=== PATIENT | male | born 1940 | race Hispanic/Latino ===

== ENCOUNTER 2017-01-03 10:55 | Inpatient (IN) | payer MEDICARE, OTHER ==
[2017-01-03 11:07] VITALS: BMI 18.7
[2017-01-03] MEDS ORDERED: Morphine 2 mg/ml ISec IVP STA (11:44)
--- NOTE | 2017-01-03 11:44 | ED PDOC ---
Arrival/HPI - General Historian: Patient - History of Present Illness Symptom Course: Unchanged Context: Home - General Chief Complaint: Abnormal Labs Time Seen by Provider: 01/03/17 11:02 - History of Present Illness Narrative History of Present Illness (Text): 01/03/17 11:41 76yo M with no stated PMH as pt is poor historian. Pt was sent by Dr. Jeff for jaundice and pancreatic mass noted on abdominal CT, as well as glucose of 500+. Pt is only complaining of joint pain, but denies chest pain, shortness of breath, cough, n/v/d, abdominal pain. Pt states that he first noticed his skin color was yellow in April of this year. Pt lives upstairs in 2-family home with daughter downstairs. Pt uses cane for assistance at baseline, and reports some lower back pain, possibly from a fall. (Jose Duckworth) Past Medical History - Provider Review Nursing Documentation Reviewed: Yes - Past History Past History: Non-Contributing - Infectious Disease Hx of Infectious Diseases: None - Tetanus Immunization Tetanus Immunization: Unknown - Past Medical History Past Medical History: Non-Contributing - Cardiac Hx Cardiac Disorders: Yes Hx Coronary Artery Disease: Yes (open heart surgery (2011)) - Pulmonary Hx Respiratory Disorders: No - Neurological Hx Neurological Disorder: No - HEENT Hx HEENT Disorder: No - Renal Hx Renal Disorder: No - Endocrine/Metabolic Hx Endocrine Disorders: Yes Other/Comment: hypergylcemic upon ed arrival on 01/03/2017 - Hematological/Oncological Hx Blood Disorders: No - Integumentary Hx Dermatological Disorder: No - Musculoskeletal/Rheumatological Hx Musculoskeletal Disorders: No - Gastrointestinal Hx Gastrointestinal Disorders: No - Genitourinary/Gynecological Hx Genitourinary Disorders: No - Psychiatric Hx Psychophysiologic Disorder: No Hx Depression: No Hx Emotional Abuse: No Hx Physical Abuse: No Hx Substance Use: No - Surgical History Hx Coronary Stent: Yes Other/Comment: unknown chest surgery - Anesthesia Hx Anesthesia: Yes Hx Anesthesia Reactions: No - Suicidal Assessment Feels Threatened In Home Enviroment: No Family/Social History - Physician Review Nursing Documentation Reviewed: Yes Family/Social History: No Known Family HX Smoking Status: Former Smoker (heavy smoker, quit 2011) Hx Alcohol Use: Yes Frequency of alcohol use: Daily (wine and beer) Hx Substance Use: No Hx Substance Use Treatment: No Allergies/Home Meds Allergies/Adverse Reactions: Allergies No Known Allergies Allergy (Verified 01/03/17 11:14) Home Medications: Home Meds Medication Instructions Recorded Confirmed Aspirin [Adult Low Dose Aspirin EC] 81 mg PO DAILY 01/03/17 01/03/17 Review of Systems - Physician Review All systems were reviewed & negative as marked: Yes - Review of Systems Constitutional: absent: Fevers Respiratory: absent: SOB, Cough Cardiovascular: absent: Chest Pain Gastrointestinal: absent: Abdominal Pain, Stool Changes, Diarrhea, Nausea, Vomiting Musculoskeletal: Back Pain (lower back pain) Physical Exam Vital Signs Reviewed: Yes Appearance: Positive for: Well-Appearing Pain Distress: None Mental Status: Positive for: Alert and Oriented X 3 Finger Stick Blood Glucose: 500 - Systems Exam Head: Present: Atraumatic, Normocephalic Pupils: Present: PERRL Extroacular Muscles: Present: EOMI Conjunctiva: Present: Icteric Mouth: Present: Moist Mucous Membranes Pharnyx: Present: Normal Neck: Present: Normal Range of Motion, Other (+hepatojugular reflex). No: Meningeal Signs, JVD Respiratory/Chest: Present: Clear to Auscultation, Good Air Exchange. No: Respiratory Distress, Accessory Muscle Use, Wheezes Cardiovascular: Present: Regular Rate and Rhythm, Normal S1, S2. No: Murmurs Abdomen: Present: Normal Bowel Sounds. No: Tenderness, Distention Back: Present: Normal Inspection Upper Extremity: Present: Normal Inspection, Normal ROM Lower Extremity: Present: Normal Inspection, Normal ROM, Other (abrasions b/l knee). No: Edema Neurological: Present: Speech Normal, Motor Func Grossly Intact, Normal Sensory Function Skin: Present: Warm, Dry, Other (jaundice). No: Normal Color Psychiatric: Present: Alert, Oriented x 3 Vital Signs Temp Pulse Resp BP Pulse Ox 01/03/17 15:10 97.9 F 78 18 110/68 01/03/17 13:12 75 18 110/68 97 01/03/17 11:06 97.9 F 80 18 108/67 97 Medical Decision Making Re-evaluation Time: 16:21 Reassessment Condition: Re-examined, Unchanged - Lab Interpretations I have reviewed the lab results: Yes - RAD Interpretation [place] Mixer Operator: Radiologist - EKG Interpretation Interpreted by ED Physician: Yes Type: 12 lead EKG ED Course and Treatment: 01/03/17 11:58 Impression: 76yo M presenting with jaundice and pancreatic mass on CT likely 2/2 pancreatic tumor, as well as hyperglycemia Plan: - Reassess and disposition - Labs - Total and Direct Bili - VBG - Urinalysis - Consults: IR and GI Progress Notes: 01/03/17 12:00 pt complaining of some lower back pain, Xray ordered 01/03/17 12:33 EKG: Ordered, reviewed, and independently interpreted the EKG. Rate : 80 BPM Rhythm : NSR, RBBB, L anterior fascicular block, bifascicular block, anterolateral infarct (age undeterminted) Interpretation : Normal intervals. 01/03/17 14:07 Ruth, the patient's daughter was visiting the pt with her boyfriend and the resident discussed the patient and the findings with her. Contact # . Radiographs of the pelvis and bilateral hips Report Date : 01/03/2017 13:06:29 Creator : Cody Corado MD FINDINGS: BONES: Pelvis: Unremarkable. Right hip:Unremarkable. Left hip:Unremarkable. JOINTS: Right hip: Unremarkable. Left hip: Unremarkable. Sacroiliac Joints: Unremarkable. Pubic symphysis: Unremarkable. SOFT TISSUES: Normal. OTHER FINDINGS: None. IMPRESSION: Unremarkable radiographs of the hips and pelvis. MRCP was also done but results are not yet available (Jose Duckworth) 01/03/17 13:04 Jemal Ibarra is a 76 year old male who presents to the emergency department with lower back pain. On exam, he presented with jaundice. CT scan shows a pancreatic mass. The patient was seen and examined with resident. Came up with treatment and disposition plan with resident. 01/03/17 14:00 Case was discussed with Dr. Garcia who recommended an MRCP with and with contrast MRI. He will follow up on the results. Patient is comfortable and stable. I discussed the case with Dr. Rehan Jeff who will place the patient on his service. He had recommended Dr. Garcia for GI and Dr. Trujillo for IR. Both consults were placed. FS improved to 296 after second Insulin dose and continual IV fluids. Patient was also complaining of sore throat. There is mild redness and noted exudates. Patient was treated with Zosyn IV for broad spectrum coverage considering WBC and LA elevation. Patient at beside and was informed of results. Patient aware of results and plan for admission. (Eren Hernandez) - Lab Interpretations Lab Results: 01/03/17 12:33 01/03/17 12:33 Lab Results 01/03/17 13:26: Blood Type Confirm A NEGATIVE 01/03/17 12:33: Blood Type A NEGATIVE, Antibody Screen Negative, BBK History Checked No verified bt 01/03/17 12:33: Sodium 134, Chloride 91 L, Potassium 4.1, Carbon Dioxide 33, Anion Gap 14, BUN 16, Creatinine 0.6 L, Est GFR ( Amer) > 60, Est GFR ( Non-Af Amer) > 60, Random Glucose 593 H*, Calcium 9.3, Phosphorus 3.9, Magnesium 2.3 H, Total Bilirubin 23.1 H*, Direct Bilirubin 20.6 H, AST 227 H, ALT 216 H, Alkaline Phosphatase 1718 H, Total Protein 6.8, Albumin 3.5, Globulin 3.3, Albumin/Globulin Ratio 1.1 01/03/17 12:33: pO2 39, VBG pH 7.32, VBG pCO2 66.0 H*, VBG HCO3 34.0 H, VBG Total CO2 36.0 H, VBG O2 Sat (Calc) 77.2 H, VBG Base Excess 5.7 H, VBG Potassium 4.4, Sodium 133.0, Chloride 93.0 L, Glucose 652 H*, Lactate 2.4 H, FiO2 21.0, Venous Blood Potassium 4.4 01/03/17 12:33: PT 11.8, INR 1.09 H, APTT 30.4 01/03/17 12:33: WBC 11.9 H, RBC 3.38 L, Hgb 11.1 L, Hct 35.4 L, MCV 104.7, MCH 32.8, MCHC 31.4, RDW 15.3 H, Plt Count 268, MPV 13.1 H, Gran % 85.1 H, Lymph % ( Auto) 7.4 L, [place] % (Auto) 7.0 H, Eos % (Auto) 0.3 L, Baso % (Auto) 0.2, Gran # 10.13 H, Lymph # 0.9 L, Chaves # 0.8 H, Eos # 0.0, Baso # 0.02 01/03/17 11:09: POC Glucose (mg/dL) > 500 H* - RAD Interpretation Radiology Orders: 01/03/17 12:00 Hip Bi with Pelvis Fall Protocol [HIP MIN 2V W/ PELVIS JIL] [RAD] Stat - Medication Orders Current Medication Orders: Discontinued Medications Sodium Chloride (Sodium Chloride 0.9%) 1,000 mls @ 999 mls/hr IV .Q1H1M STA Stop: 01/03/17 14:13 Last Admin: 01/03/17 13:50 Dose: 999 mls/hr eMAR Start Stop Document 01/03/17 13:50 LA (Rec: 01/03/17 13:50 LA [id number]) Intravenous Solution Start Date 01/03/17 Start Time 13:50 End Date 01/03/17 End time 14:50 Total Infusion Time 60 Sodium Chloride (Sodium Chloride 0.9%) 1,000 mls @ 999 mls/hr IV .Q1H1M STA Stop: 01/03/17 15:02 Last Admin: 01/03/17 14:32 Dose: 999 mls/hr eMAR Start Stop Document 01/03/17 14:32 LA (Rec: 01/03/17 14:32 LA [id number]) Intravenous Solution Start Date 01/03/17 Start Time 14:32 End Date 01/03/17 End time 15:32 Total Infusion Time 60 Piperacillin Sod/Tazobactam Sod (Zosyn 4.5 Gm In Ns 100ml) 4.5 gm in 100 mls @ 200 mls/hr IVPB STAT STA PRN Reason: Protocol Stop: 01/03/17 15:13 Last Admin: 01/03/17 16:13 Dose: 200 mls/hr eMAR Start Stop Document 01/03/17 16:13 PORFIRIO (Rec: 01/03/17 16:14 [id number]) Intravenous Solution Start Date 01/03/17 Start Time 16:13 End Date 01/03/17 End time 16:43 Total Infusion Time 30 Insulin Human Regular (Humulin R) 5 units IVP STAT STA Stop: 01/03/17 13:01 Last Admin: 01/03/17 13:46 Dose: 5 units MAR Blood Glucose Document 01/03/17 13:46 LA (Rec: 01/03/17 13:50 [id number] Blood Glucose Finger Stick Blood Glucose (70-120) 652 IVP Administration Document 01/03/17 13:46 LA (Rec: 01/03/17 13:50 LA [id number]) Charges for Administration # of IVP Administrations 1 Insulin Human Regular (Humulin R) 5 units IVP STAT STA Stop: 01/03/17 14:56 Last Admin: 01/03/17 16:13 Dose: 5 units MAR Blood Glucose Document 01/03/17 16:13 [facility] (Rec: 01/03/17 16:13 [email or web address] Blood Glucose Finger Stick Blood Glucose (70-120) 444 IVP Administration Document 01/03/17 16:13 PORFIRIO (Rec: 01/03/17 16:13 [email or web address] Charges for Administration # of IVP Administrations 1 Morphine Sulfate (Morphine) 2 mg IVP STAT STA Stop: 01/03/17 11:45 Last Admin: 01/03/17 12:26 Dose: 2 mg MAR Pain Assessment Document 01/03/17 12:26 LA (Rec: 01/03/17 12:39 [id number] Pain Reassessment Is this a pain reassessment? Yes Sleep Is patient sleeping during reassessment? No Presence of Pain Presence of Pain Yes Pain Scale Used Pain Scale Used Numeric Location Pain Location Body Site Generalized Description Description Constant Intensity of Pain at present 10 Pain Behavior Guarding Grasping Site Aggravating Factors None IVP Administration Document 01/03/17 12:26 LA (Rec: 01/03/17 12:39 [id number]) Charges for Administration # of IVP Administrations 1 Pneumococcal Polyvalent Vaccine (Pneumovax 23 Vaccine) 0.5 ml IM .ONCE ONE Stop: 01/03/17 15:32 Disposition/Present on Arrival - Present on Arrival Any Indicators Present on Arrival: No History of DVT/PE: No History of Uncontrolled Diabetes: No Urinary Catheter: No History of Decub. Ulcer: No History Surgical Site Infection Following: None - Disposition Have Diagnosis and Disposition been Completed?: Yes Disposition Time: 16:32 Patient Plan: Admission - Disposition Diagnosis: Pancreatic mass, Hyperglycemia, Jaundice Disposition: HOSPITALIZED Patient Problems: Current Active Problems Problem Status Onset Pancreatic mass Acute Hyperglycemia Acute Jaundice Acute Condition: FAIR
[2017-01-03 12:47] LABS: VENOUS BLOOD GAS BASE EXCESS 5.7 mmol/L (0.0-2.0); VENOUS BLOOD PH 7.32 (7.32-7.43)
[2017-01-03 12:51] LABS: BASO # 0.02 K/mm3 (0.0-2.0); BASO % 0.2 % (0.0-3.0); EOS % 0.3 % (1.5-5.0); GRAN # 10.13 (1.4-6.5); GRAN % 85.1 % (50.0-68.0); HEMATOCRIT 35.4 % (42.0-52.0); LYMPH # 0.9 (1.2-3.4); LYMPH % 7.4 % (22.0-35.0); MEAN CELL VOLUME 104.7 fl (80.0-105.0); MEAN CORPUSCULAR HEMOGLOBIN 32.8 pg (25.0-35.0); MEAN CORPUSCULAR HGB CONC 31.4 g/dl (31.0-37.0); MEAN PLATELET VOLUME 13.1 fl (7.0-11.0); MONO # 0.8 (0.1-0.6); RED CELL DISTRIBUTION WIDTH 15.3 % (11.5-14.5); WHITE BLOOD COUNT 11.9 10^3/ul (4.5-11.0)
[2017-01-03 12:57] LABS: ALB/GLOB RATIO 1.1 (1.1-1.8); ALT/SGPT 216 U/L (7-56); AST/SGOT 227 U/L (17-59); BILIRUBIN,DIRECT 20.6 mg/dL (0.0-0.4); BLOOD UREA NITROGEN 16 mg/dL (7-21); CALCIUM 9.3 mg/dL (8.4-10.5); CARBON DIOXIDE 33 mmol/L (21-33); CHLORIDE 91 mmol/L (98-107); GFR AFRICAN-AMERICAN > 60; MAGNESIUM 2.3 mg/dL (1.7-2.2); PHOSPHOROUS 3.9 mg/dL (2.5-4.5); POTASSIUM 4.1 mmol/L (3.6-5.0); SODIUM 134 mmol/L (132-148); TOTAL PROTEIN 6.8 g/dL (5.8-8.3)
[2017-01-03] MEDS ORDERED: Insulin Regular 1 UNITS/0.01 ML ML IVP STA ×2 (13:00→14:55)
[2017-01-03 13:03] LABS: ALKALINE PHOSPHATASE 1718 U/L (38-126)
--- NOTE | 2017-01-03 13:08 | RAD ---
PROCEDURE: Radiographs of the pelvis and bilateral hips HISTORY: s/p fall COMPARISON: None. FINDINGS: BONES: Pelvis: Unremarkable. Right hip:Unremarkable. Left hip:Unremarkable. JOINTS: Right hip: Unremarkable. Left hip: Unremarkable. Sacroiliac Joints: Unremarkable. Pubic symphysis: Unremarkable. SOFT TISSUES: Normal. OTHER FINDINGS: None. IMPRESSION: Unremarkable radiographs of the hips and pelvis.
[2017-01-03 13:11] LABS: BILIRUBIN,TOTAL 23.1 mg/dL (0.2-1.3); GLUCOSE,RANDOM 593 mg/dL (70-110)
[2017-01-03] MEDS ORDERED: Sodium Chloride 0.9% 1,000 ML IV STA ×2 (13:13→14:02)
[2017-01-03 13:14] LABS: INR 1.09 (0.93-1.08); PARTIAL THROMBOPLASTIN TIME 30.4 Seconds (23.7-30.8)
[2017-01-03 14:14] LABS: PH,URINE 6.5 (4.7-8.0); URINE BILIRUBIN LARGE (NEGATIVE); URINE BLOOD TRACE-LYSED (NEGATIVE); URINE GLUCOSE (UA) >=1000 mg/dL (NEGATIVE); URINE KETONE NEGATIVE (NEGATIVE); URINE LEUKOCYTE ESTERASE NEGATIVE Leu/uL (NEGATIVE); URINE PROTEIN TRACE mg/dL (<30 mg/dL); URINE UROBILINOGEN 0.2 E.U./dL (<1 E.U./dL)
[2017-01-03 14:19] LABS: URINE APPEARANCE CLEAR (CLEAR); URINE COLOR YELLOW (YELLOW)
[2017-01-03 14:20] LABS: URINE BACTERIA TRACE (NEG); URINE RBC NEGATIVE /hpf (0-2); URINE WBC NEGATIVE /hpf (0-6)
[2017-01-03] MEDS ORDERED: Piperacill/Tazo 4.5gm in NS 4.5 GM/100 ML BAG IVPB STA (14:44)
--- NOTE | 2017-01-03 14:52 | CARD ---
APPROVED REPORT EKG Measurement Heart [id number] MI [id number] <Conclusion> Normal sinus rhythm Right bundle branch block Left anterior fascicular block Bifascicular block Anterolateral infarct, age undetermined Abnormal ECG
[2017-01-03] MEDS ORDERED: Gadodiamide 287 MG/ML VIAL (15ML) IV ONE (15:30)
[2017-01-03] MEDS ORDERED: Pneumococcal 23-Valent Vaccine IM ONE (15:31)
[2017-01-03] MEDS ORDERED: Insulin Lispro 1 UNITS/0.01 ML SC STA (18:09)
[2017-01-03 19:04] LABS: VENOUS BLOOD GAS BASE EXCESS 9.7 mmol/L (0.0-2.0); VENOUS BLOOD PH 7.38 (7.32-7.43)
--- NOTE | 2017-01-03 19:04 | CP.PCM.CON ---
History of Present Illness - History of Present Illness History of Present Illness: this 76-year-old patient was seen by primary physician last week in the office. Patient was complaining of weakness and difficulty with his ambulation. Patient was found to be jaundiced. Patient did have a CAT scan done showed a pancreatic mass. Patient was sent to the emergency room for evaluation today. No vomiting no diarrhea no bleeding per rectum denies any abdominal pain. He's been progressively getting weaker and weaker. History of loss of weight OTHER PAST MEDICAL HISTORY includes diabetes mellitus Review of Systems - Review of Systems All systems: reviewed and no additional remarkable complaints except - Constitutional Constitutional: Weight Loss, Weakness. absent: Chills, Fever - Cardiovascular Cardiovascular: absent: Chest Pain, Palpitations - Respiratory Respiratory: absent: Cough, Hemoptysis, Wheezing - Gastrointestinal Gastrointestinal: As Per HPI - Integumentary Integumentary: As Per HPI - Neurological Neurological: As Per HPI Past Patient History - Infectious Disease Hx of Infectious Diseases: None - Tetanus Immunizations Tetanus Immunization: Unknown - Past Social History Smoking Status: Former Smoker (heavy smoker, quit 2011) - CARDIAC Hx Cardiac Disorders: Yes - PULMONARY Hx Respiratory Disorders: No - NEUROLOGICAL Hx Neurological Disorder: No - HEENT Hx HEENT Problems: No - RENAL Hx Chronic Kidney Disease: No - ENDOCRINE/METABOLIC Hx Endocrine Disorders: Yes Other/Comment: hypergylcemic upon ed arrival on 01/03/2017 - HEMATOLOGICAL/ONCOLOGICAL Hx Blood Disorders: No - INTEGUMENTARY Hx Dermatological Problems: No - MUSCULOSKELETAL/RHEUMATOLOGICAL Hx Musculoskeletal Disorders: No - GASTROINTESTINAL Hx Gastrointestinal Disorders: No - GENITOURINARY/GYNECOLOGICAL Hx Genitourinary Disorders: No - PSYCHIATRIC Hx Psychophysiologic Disorder: No Hx Depression: No Hx Emotional Abuse: No Hx Physical Abuse: No Hx Substance Use: No - SURGICAL HISTORY Hx Coronary Stent: Yes Other/Comment: unknown chest surgery - ANESTHESIA Hx Anesthesia: Yes Hx Anesthesia Reactions: No Meds Allergies/Adverse Reactions: Allergies Allergy/AdvReac Type Severity Reaction Status Date / Time No Known Allergies Allergy Verified 01/03/17 11:14 - Medications Medications: Current Medications Insulin Human Lispro (Humalog High) 0 units SC ACHS BARBIE PRN Reason: Protocol Physical Exam - Constitutional Appears: No Acute Distress - Head Exam Head Exam: NORMOCEPHALIC. absent: ATRAUMATIC - Eye Exam Eye Exam: Normal appearance, Scleral icterus Pupil Exam: PERRL - ENT Exam ENT Exam: Normal Exam - Neck Exam Neck exam: Positive for: Normal Inspection. Negative for: Lymphadenopathy - Respiratory Exam Respiratory Exam: absent: Rales, Rhonchi - Cardiovascular Exam Cardiovascular Exam: +S1, +S2. absent: JVD - GI/Abdominal Exam GI & Abdominal Exam: Normal Bowel Sounds, Soft. absent: Mass, Tenderness - Rectal Exam Rectal Exam: Deferred - Extremities Exam Extremities exam: Positive for: full ROM. Negative for: calf tenderness, pedal edema - Skin Skin Exam: Intact, Warm Results - Vital Signs Recent Vital Signs: Last Vital Signs Temp 98.2 F 01/03/17 16:00 Pulse 101 H 01/03/17 16:00 Resp 20 01/03/17 16:00 BP 110/62 01/03/17 16:00 Pulse Ox 96 01/03/17 16:00 - Labs Result Diagrams: 01/03/17 12:33 01/03/17 12:33 Labs: Laboratory Results - last 24 hr 01/03/17 01/03/17 01/03/17 13:50 16:46 17:54 POC Glucose (mg/dL) 296 H 290 H Urine Color Yellow Urine Appearance Clear Urine pH 6.5 Ur Specific [place] 1.010 Urine Protein Trace H Urine Glucose (UA) >=1000 Urine Ketones Negative Urine Blood Trace-lysed H Urine Nitrate Negative Urine Bilirubin Large H Urine Urobilinogen 0.2 Ur Leukocyte Esterase Negative Urine RBC Negative Urine WBC Negative Urine Bacteria Trace Assessment & Plan - Assessment and Plan (Free Text) Assessment: P 76-year-old patient with a past medical history of diabetes mellitus was admitted with progressive weakness and weight loss deeply jaundiced CT showed possible pancreatic mass limited study the CT wasn't without contrast Total bilirubin is elevated. the most likely cause is pancreatic malignancy with obstructive jaundice Requested MRI with MRCP to further evaluate Other comorbidities include diabetes mellitus PLAN Patient is scheduled for EGD EUS and ERCP to further evaluate discussed with interventional radiologist Dr. Chicho Trujillo and also Dr. Odin Jeff we will keep the patient nothing by mouth after clear liquid breakfast for EUS ERCP tomorrow
[2017-01-03] MEDS: Sodium Chloride 0.45% 1,000 ML IV SCH (20:23)
[2017-01-03] MEDS: Insulin Lispro (HUMAlog) HIGH Coverage SC SCH (21:28)
[2017-01-04 06:04] LABS: BASO # 0.03 K/mm3 (0.0-2.0); BASO % 0.2 % (0.0-3.0); EOS # 0.2 (0.0-0.7); EOS % 1.6 % (1.5-5.0); GRAN # 9.97 (1.4-6.5); GRAN % 80.1 % (50.0-68.0); HEMATOCRIT 29.9 % (42.0-52.0); LYMPH # 1.5 (1.2-3.4); LYMPH % 11.7 % (22.0-35.0); MEAN CORPUSCULAR HEMOGLOBIN 32.8 pg (25.0-35.0); MEAN CORPUSCULAR HGB CONC 32.4 g/dl (31.0-37.0); MONO # 0.8 (0.1-0.6); MONO % 6.4 % (1.0-6.0); RED CELL DISTRIBUTION WIDTH 16.1 % (11.5-14.5); WHITE BLOOD COUNT 12.4 10^3/ul (4.5-11.0)
[2017-01-04 06:47] LABS: ALKALINE PHOSPHATASE 1381 U/L (38-126); ALT/SGPT 193 U/L (7-56); AST/SGOT 241 U/L (17-59); BLOOD UREA NITROGEN 18 mg/dL (7-21); CALCIUM 8.8 mg/dL (8.4-10.5); CARBON DIOXIDE 29 mmol/L (21-33); CHLORIDE 98 mmol/L (95-110); GFR AFRICAN-AMERICAN > 60; GLUCOSE,RANDOM 244 mg/dL (70-110); POTASSIUM 4.2 mmol/L (3.6-5.0); SODIUM 136 mmol/L (132-148); TOTAL PROTEIN 5.6 g/dL (5.8-8.3)
[2017-01-04 06:53] LABS: BILIRUBIN,TOTAL 18.8 mg/dL (0.2-1.3)
[2017-01-04] MEDS: Insulin Lispro (HUMAlog) HIGH Coverage SC SCH ×4 (08:30→21:38)
--- NOTE | 2017-01-04 08:38 | RAD ---
PROCEDURE: Bilateral Knee Radiographs. HISTORY: pain, R/O mets COMPARISON: None. FINDINGS: BONES: Right Knee: Normal. No fracture. Left Knee: Normal. No fracture. JOINTS: Right Knee: Mild joint space narrowing in the medial compartment Left knee: Minimal joint space narrowing in the medial compartment SOFT TISSUES: Right Knee: Normal. Left Knee: Normal. JOINT EFFUSION: Right Knee: None. Left Knee: None. OTHER FINDINGS: None. IMPRESSION: Joint space narrowing in the medial compartment bilaterally right greater than left
--- NOTE | 2017-01-04 10:45 | MRI ---
MRI abdomen without/with IV contrast MRCP Indication: Pancreatic mass, jaundice Technique: Multiplanar, multi sequence magnetic resonance images of the abdomen were obtained without and with the administration of intravenous gadolinium using a multi phase abdomen protocol. Rotating maximum intensity projection images of the biliary system were generated. A total of 1084 images submitted for review Comparison: CT of the abdomen and pelvis without IV contrast performed 12/31/16 Findings: Markedly limited examination due to patient motion and difficulty with breath hold. Cachectic patient. Severe intra and extrahepatic biliary ductal dilatation. The common bile duct measures up to 2.2 cm in diameter. No discrete focal filling defect identified. Abrupt distal taper of the common bile duct which measures approximately 2 mm in diameter. The pancreatic duct appears markedly dilated measuring approximately 11 mm in diameter. No focal filling defect identified. Evidence of abrupt tapering medially proximal to its terminus. Gallbladder distension. No visualized gallstones. No discrete obstructing pancreatic mass identified. However given limitations of this study, pancreatic mass can not be excluded. No focal fluid peripancreatic collection or abscess appreciated. The liver, spleen, adrenal glands, and right kidney appear grossly unremarkable. Tiny left renal cyst. Partially imaged bowel demonstrates constipation. Atherosclerotic calcifications of the aorta. No acute osseous abnormality is detected. Impression: Severe intrahepatic and extrahepatic biliary ductal dilatation as well as pancreatic ductal dilatation. Evidence of abrupt taper. No obstructing calculus or mass identified, however examination limited due to patient motion and a pancreatic or ampullary mass cannot be excluded. Preliminary impression was provided by virtual radiologic.
[2017-01-04] MEDS: Sodium Chloride 0.45% 1,000 ML IV SCH (13:58)
[2017-01-04] MEDS ORDERED: Indomethacin 50 MG Suppository PR ONE ×2 (14:10→16:50)
[2017-01-04] MEDS ORDERED: Iohexol 240 (50 ml) ONE (14:11)
[2017-01-04] MEDS ORDERED: cefTRIAXone (Rocephin) 1 gm Inj ONE (15:41)
[2017-01-04] MEDS ORDERED: Propofol 10 mg/ml Inj (20 ML) ONE (15:46)
[2017-01-04] MEDS ORDERED: Succinylcholine 200 mg/10 ml Inj IV ONE (15:46)
[2017-01-04] MEDS ORDERED: Lidocaine 2% Inj (20ml) ONE (15:46)
[2017-01-04] MEDS ORDERED: Etomidate 20 mg/10ml Inj IV ONE (15:47)
[2017-01-04] MEDS ORDERED: cefTRIAXone 1 GM in NS 100 ML BAG IVPB ONE (15:50)
[2017-01-04] MEDS ORDERED: ePHEDrine 50 mg/ml Inj ONE ×2 (15:56→16:29)
[2017-01-04] MEDS: Sodium Chloride 0.9% 1,000 ML IV SCH (21:15)
--- NOTE | 2017-01-05 00:14 | CP.PCM.PN ---
Subjective - Date & Time of Evaluation Date of Evaluation: 01/04/17 Time of Evaluation: 18:45 - Subjective Subjective: status post EUS, ERCP No complains of abdominal pain Objective - Vital Signs/Intake and Output Vital Signs (last 24 hours): Temp Pulse Resp BP Pulse Ox 98.1 F 78 22 119/68 98 01/04/17 18:53 01/04/17 18:53 01/04/17 18:53 01/04/17 18:53 01/04/17 18:53 Intake and Output: 01/04/17 01/05/17 18:59 06:59 Intake Total 120 0 Output Total 300 Balance 120 -300 - Medications Medications: Current Medications Sodium Chloride (Sodium Chloride 0.9%) 1,000 mls @ 100 mls/hr IV .Q10H BARBIE Last Admin: 01/04/17 21:15 Dose: 100 mls/hr Insulin Human Lispro (Humalog High) 0 units SC ACHS BARBIE PRN Reason: Protocol Last Admin: 01/04/17 21:38 Dose: Not Given Tramadol HCl (Ultram) 50 mg PO TID PRN PRN Reason: Pain, moderate (4-7) Last Admin: 01/03/17 20:09 Dose: 50 mg - Labs Labs: 01/04/17 05:30 01/04/17 05:30 PT 11.8 Seconds (9.9-11.8) 01/03/17 12:33 INR 1.09 (0.93-1.08) H 01/03/17 12:33 APTT 30.4 Seconds (23.7-30.8) 01/03/17 12:33 - Constitutional Appears: No Acute Distress - Eye Exam Eye Exam: EOMI, PERRL, Scleral icterus - Respiratory Exam Respiratory Exam: Clear to Ausculation Bilateral, Rhonchi. absent: Rales - Cardiovascular Exam Cardiovascular Exam: JVD, +S2, +S4. absent: +S1 - GI/Abdominal Exam GI & Abdominal Exam: Soft. absent: Tenderness - Extremities Exam Extremities Exam: Normal Inspection. absent: Calf Tenderness - Neurological Exam Neurological Exam: Alert, Awake, Oriented x3 - Skin Skin Exam: Cyanosis, Intact Assessment and Plan - Assessment and Plan (Free Text) Assessment: this patient underwent a EUS ERCP today. EUS revealed a 2 cm size hypoechoic lesion in the head of the pancreas closer to the ampullary area. Fine-needle aspiration biopsies were taken. Closer look at the ampulla revealed a lesion D duodenum all appears to be involved with puckered appearance. Cannulation was not successful biopsy of the periampullary tissue taken which appeared abnormal suggesting possible neoplasia Plan 1. Follow up with the lft 2. Request Dr. Chicho Trujillo, interventional radiologist for PTC Will discuss with the Dr. Jeff with Dr. Trujillo discussed with the patient at length postprocedure
[2017-01-05] MEDS: Sodium Chloride 0.9% 1,000 ML IV SCH (05:33)
[2017-01-05 06:56] LABS: HEMATOCRIT 31.5 % (42.0-52.0); MEAN CELL VOLUME 100.6 fl (80.0-105.0); MEAN CORPUSCULAR HEMOGLOBIN 31.9 pg (25.0-35.0); MEAN CORPUSCULAR HGB CONC 31.7 g/dl (31.0-37.0); MEAN PLATELET VOLUME 12.2 fl (7.0-11.0); RED CELL DISTRIBUTION WIDTH 16.2 % (11.5-14.5); WHITE BLOOD COUNT 9.4 10^3/ul (4.5-11.0)
[2017-01-05 07:30] LABS: ALB/GLOB RATIO 0.9 (1.1-1.8); ALKALINE PHOSPHATASE 1334 U/L (38-126); ALT/SGPT 167 U/L (7-56); AST/SGOT 190 U/L (17-59); BLOOD UREA NITROGEN 23 mg/dL (7-21); CALCIUM 8.5 mg/dL (8.4-10.5); CARBON DIOXIDE 24 mmol/L (21-33); CHLORIDE 102 mmol/L (98-107); GFR AFRICAN-AMERICAN > 60; GLUCOSE,RANDOM 264 mg/dL (70-110); POTASSIUM 4.4 mmol/L (3.6-5.0); SODIUM 135 mmol/L (132-148); TOTAL PROTEIN 5.4 g/dL (5.8-8.3)
[2017-01-05] MEDS: Insulin Lispro (HUMAlog) HIGH Coverage SC SCH ×4 (08:15→23:28)
[2017-01-05] MEDS ORDERED: Benzocaine/Menthol (Cepacol) Lozenge MT PRN (10:27)
--- NOTE | 2017-01-05 13:16 | CP.PCM.PN ---
<Elisa Campbell - Last Filed: 01/05/17 13:14> Subjective - Date & Time of Evaluation Date of Evaluation: 01/05/17 Time of Evaluation: 10:05 - Subjective Subjective: Seen and examined at the bedside earlier this morning, status post EGD/EUS/ attempted ERCP, failed cannulation, status post ERCP with biopsy and FNA. The patient remains jaundice, denies nausea, vomiting or abdominal pain. He does complain of a sore throat but states that he had this prior to hospital admission, he had a tooth extracted and post extraction had sore throat. Denies fever or chills. Objective - Vital Signs/Intake and Output Vital Signs (last 24 hours): Temp Pulse Resp BP Pulse Ox 98.4 F 73 20 91/57 L 95 01/05/17 06:00 01/05/17 06:00 01/05/17 06:00 01/05/17 06:00 01/05/17 06:00 Intake and Output: 01/05/17 01/05/17 06:59 18:59 Intake Total 1200 Output Total 675 Balance 525 - Medications Medications: Current Medications Benzocaine/Menthol (Cepacol Sore Throat) 1 sveta MT BID PRN PRN Reason: Sore Throat Sodium Chloride (Sodium Chloride 0.9%) 1,000 mls @ 100 mls/hr IV .Q10H [facility] Last Admin: 01/05/17 05:33 Dose: 100 mls/hr Insulin Human Lispro (Humalog High) 0 units SC ACHS [facility] PRN Reason: Protocol Last Admin: 01/05/17 12:35 Dose: 4 units Tramadol HCl (Ultram) 50 mg PO TID PRN PRN Reason: Pain, moderate (4-7) Last Admin: 01/05/17 08:26 Dose: 50 mg - Labs Labs: 01/05/17 06:51 01/05/17 06:51 PT 11.8 Seconds (9.9-11.8) 01/03/17 12:33 INR 1.09 (0.93-1.08) H 01/03/17 12:33 APTT 30.4 Seconds (23.7-30.8) 01/03/17 12:33 - Constitutional Appears: No Acute Distress - Eye Exam Eye Exam: Scleral icterus - ENT Exam ENT Exam: Mucous Membranes Moist - Respiratory Exam Respiratory Exam: Clear to Ausculation Bilateral, NORMAL BREATHING PATTERN. absent: Respiratory Distress - Cardiovascular Exam Cardiovascular Exam: +S1, +S2 - GI/Abdominal Exam GI & Abdominal Exam: Soft, Normal Bowel Sounds. absent: Guarding, Tenderness, Rebound - Extremities Exam Extremities Exam: Normal Capillary Refill. absent: Calf Tenderness, Pedal Edema - Neurological Exam Neurological Exam: Alert, Awake, Oriented x3 - Skin Skin Exam: Dry, Warm Additional comments: jaundice Assessment and Plan - Assessment and Plan (Free Text) Assessment: Assessment: Obstructive jaundice, EUS revealed a 2 cm size hypoechoic lesion in the head of the pancreas closer to the ampullary area. s/p biopsies Attempted ERCP, unable to cannulate, was not successful biopsy of the periampullary tissue done. Weight loss History of diabetes mellitus Plan: Planned for PTC with Dr. Trujillo today Start clear liquid diet, can advance after interventional procedure Trend LFTs Cepacol lozenges Follow-up biopsy and cytology Spoke to son at bedside regarding plan today. Seen and discussed with Dr. Bruce. <Yomaira Bradley V - Last Filed: 01/05/17 21:21> Objective - Vital Signs/Intake and Output Vital Signs (last 24 hours): Temp Pulse Resp BP Pulse Ox 97.4 F L 62 17 124/64 99 01/05/17 17:42 01/05/17 17:42 01/05/17 17:42 01/05/17 17:42 01/05/17 17:42 Intake and Output: 01/05/17 01/06/17 18:59 06:59 Intake Total 480 Balance 480 - Medications Medications: Current Medications Acetaminophen (Tylenol 325mg Tab) 650 mg PO Q4 PRN PRN Reason: Pain, Mild (1-3) Benzocaine/Menthol (Cepacol Sore Throat) 1 sveta MT BID PRN PRN Reason: Sore Throat Hydromorphone HCl (Dilaudid) 2 mg IVP Q6H PRN PRN Reason: Pain, severe (8-10) Sodium Chloride (Sodium Chloride 0.9%) 1,000 mls @ 100 mls/hr IV .Q10H [facility] Last Admin: 01/05/17 05:33 Dose: 100 mls/hr Sodium Chloride (Sodium Chloride 0.45%) 1,000 mls @ 80 mls/hr IV .[id number] [facility] Stop: 01/06/17 18:00 Last Admin: 01/05/17 18:25 Dose: 80 mls/hr Insulin Human Lispro (Humalog High) 0 units SC ACHS [facility] PRN Reason: Protocol Last Admin: 01/05/17 18:00 Dose: 4 units Ondansetron HCl (Zofran Inj) 4 mg IVP Q6H PRN PRN Reason: Nausea/Vomiting Oxycodone/Acetaminophen (Percocet 5/325 Mg Tab) 1 tab PO Q4H PRN PRN Reason: Pain, moderate (4-7) Stop: 01/08/17 17:19 Tramadol HCl (Ultram) 50 mg PO TID PRN PRN Reason: Pain, moderate (4-7) Last Admin: 01/05/17 08:26 Dose: 50 mg - Labs Labs: 01/05/17 06:51 01/05/17 06:51 PT 11.8 Seconds (9.9-11.8) 01/03/17 12:33 INR 1.09 (0.93-1.08) H 01/03/17 12:33 APTT 30.4 Seconds (23.7-30.8) 01/03/17 12:33 Attending/Attestation - Attestation I have personally seen and examined this patient.: Yes I have fully participated in the care of the patient.: Yes I have reviewed all pertinent clinical information, including history, physical exam and plan: Yes Notes (Text): This is an addendum to GI progress report dictated by Elisa Campbell APN.The patient was seen and examined earlier. Medical records, lab studies, imagings were reviewed. Last 24 hours events reviewed. Agreed with the above treatment plan as outlined in Elisa Campbell APN's notes the with the addition of the following I was present with Dr. Trujillo the during the PTC in vascular lab. Tight stricture in the distal common bile duct. Cholangiogram picture is suggestive of pancreatic cancer involving the head rather than. Ampullary. Internal/ external stent was placed. Awaiting for the pathology. Discussed with the Dr. Gabriel pathologists results may be available tomorrow we will follow up I did discuss with the Dr. John Jeff in the a.m. 01/05/17 21:18
--- NOTE | 2017-01-05 13:23 | RAD ---
PROCEDURE: Fluoroscopy up to 1 hour HISTORY: ? CBD OBST. COMPARISON: TECHNIQUE: Fluoroscopy was provided in the endoscopy suite. 30.4 seconds of fluoro time. One image was submitted FINDINGS: ERCP was attempted but failed. There is no visualization of the common duct IMPRESSION: As above
[2017-01-05] MEDS ORDERED: Iodixanol 320 mg/ml 150 ml Bottle IV ONE (15:27)
[2017-01-05] MEDS ORDERED: Lidocaine 2% Inj (20ml) ONE (15:27)
[2017-01-05] MEDS ORDERED: Nitroglycerin 50mg in D5W 50 MG/250 ML BOTTLE IV ONE (15:39)
[2017-01-05] MEDS ORDERED: Midazolam 2 MG/2 ML VIAL ONE ×2 (15:39→16:33)
[2017-01-05] MEDS ORDERED: Iodixanol 320 MG/ML 100 ML BOTTLE IV ONE (15:39)
--- NOTE | 2017-01-05 15:39 | PN ---
DATE: 01/04/2017 SUBJECTIVE: This is a 76-year-old man who I have not seen in 2 years. I saw him on Tuesday when he was waiting for me on the driveway at my office and he is extremely jaundiced. He went for the CT scan . Labs were drawn showing his sugar over 500 and CA19-9 over 54,000 and followup on Tuesday morning, he was told these results and admitted by Dr. Cody Jeff yesterday. He was given IV fluids, insulin, and today EUS, EGD, and ERCP were scheduled and the patient has had endoscopy late this evening as I spoke with family, and patient returned during my visit. I spoke with the patient's family at great length, bringing them up today for my findings so far. My plan is suspicious the pancreatic cancer, although CAT scan was not extremely diagnostic and more will be revealed by the ERCP, MRCP, and EUS just done. The patient's family request Oncology consultation by Dr. Bautista and will comply. Rehan Jeff MD MTDD
[2017-01-05] MEDS ORDERED: HYDROmorphone 2 mg/ml ISec ONE (17:17)
[2017-01-05] MEDS ORDERED: Oxycodone/Acetaminophen 5/325 mg Tab PO PRN (17:18)
[2017-01-05] MEDS ORDERED: HYDROmorphone 2 mg/ml ISec IVP PRN (17:19)
[2017-01-05] MEDS ORDERED: HYDROmorphone 2 mg/ml ISec IVP STA (17:24)
[2017-01-05] MEDS: Sodium Chloride 0.45% 1,000 ML IV SCH (18:25)
--- NOTE | 2017-01-05 19:30 | VASCULAR ---
PROCEDURE: Percutaneous transhepatic internal/external biliary drain Distal CBD dilatation HISTORY: Pancreatic CA. Painless jaundice. Unable placed endoscopic stent. Needs biliary drainage. PHYSICIAN(S): Chicho Trujillo MD. TECHNIQUE: The relative risks and indications for the procedure were explained to the patient and informed consent obtained. The patient was placed in a supine position and the subxiphoid region prepped and draped usual sterile fashion. Conscious sedation monitoring were provided throughout the procedure by a nurse. Under direct ultrasound guidance, a dilated left hepatic duct was punctured with a micropuncture set. Exchange is made for a 0.035 guidewire in the distal CBD. The focal malignant obstruction distal CBD was crossed with an angled glidewire and 5 [place] catheter. Exchange is made for a 0.035 support wire. The 12 [place] internal external biliary drain would not cross the focal malignant obstruction in the distal CBD. Subsequently the malignant obstruction was dilated with an 8 mm x 4 cm balloon. The 12 [place] internal external biliary drain was easily placed after dilatation. The catheter was flushed and secured. The patient tolerated the procedure well IMPRESSION: 1. Malignant 2-3 cm obstruction of the distal CBD. 2. Successful dilatation of the malignant obstruction with an 8 mm balloon. 3. Successful placement of 12 [place] internal/external biliary drain from a left-sided approach. 4. The patient will be considered for internal metallic biliary stent placement after tissue diagnosis and the bile ducts have decompressed.
--- NOTE | 2017-01-05 20:56 | CP.PCM.CON ---
<ArronCory salazar - Last Filed: 01/05/17 21:09> History of Present Illness - History of Present Illness History of Present Illness: Heme/Onc Consult note for Dr. Bautista's service HPI: Patient is a 76yo male with past medical history of diabetes mellitus type 2 that originally presented to his PMD c/o weakness. He reported significant fatigue, inability to ambulate as he used to, yellowing of his skin and weight loss of approximately 50lbs in 6 months duration. He was sent for CT abd/pelvis which revealed dilated hepatic and proximal common duct and dilated pancreatic duct raising the suspicion for a pancreatic head mass. He was subsequently advised to go to the ER for further evaluation. Subsequently, an MRCP was done which showed severe intrahepatic and extrahepatic biliary ductal dilatation and pancreatic ductal dilatation. GI was consulted and he underwent EGD/EUS/ attempted ERCP. EUS revealed a 2cm hypoechoic lesion in the head of the pancreas. FNA biopsies were taken of the mass. ERCP was attempted but unsuccessful and therefore periampullary tissue was unable to be biopsied. IR was consulted for PTC which the patient underwent today. Heme/Onc consulted for evaluation of pancreatic mass. Patient denied chest pain, palpitations, SOB, abdominal pain, nausea, vomiting, pruritis, focal weakness, numbness, tingling. 12point ROS as per HPI above otherwise negative PMH: see above PSH: unknown cardiac procedure Allergies: NKDA Social Hx: Former smoker from age ~14 through 2012; denies alcohol and illicit drug use Family Hx: Mother: HTN; Brother: CAD; denied known history of cancer in the family Past Patient History - Infectious Disease Hx of Infectious Diseases: None - Tetanus Immunizations Tetanus Immunization: Unknown - Past Social History Smoking Status: Former Smoker (heavy smoker, quit 2011) - CARDIAC Hx Cardiac Disorders: Yes - PULMONARY Hx Respiratory Disorders: No - NEUROLOGICAL Hx Neurological Disorder: No - HEENT Hx HEENT Problems: No - RENAL Hx Chronic Kidney Disease: No - ENDOCRINE/METABOLIC Hx Endocrine Disorders: Yes Other/Comment: hypergylcemic upon ed arrival on 01/03/2017 - HEMATOLOGICAL/ONCOLOGICAL Hx Blood Transfusions: No - INTEGUMENTARY Hx Dermatological Problems: No - MUSCULOSKELETAL/RHEUMATOLOGICAL Hx Musculoskeletal Disorders: No - GASTROINTESTINAL Hx Gastrointestinal Disorders: No - GENITOURINARY/GYNECOLOGICAL Hx Genitourinary Disorders: No - PSYCHIATRIC Hx Psychophysiologic Disorder: No Hx Depression: No Hx Emotional Abuse: No Hx Physical Abuse: No Hx Substance Use: No - SURGICAL HISTORY Hx Surgeries: Yes - ANESTHESIA Hx Anesthesia Reactions: No Hx Malignant Hyperthermia: No Meds Allergies/Adverse Reactions: Allergies Allergy/AdvReac Type Severity Reaction Status Date / Time No Known Allergies Allergy Verified 01/03/17 11:14 - Medications Medications: Current Medications Acetaminophen (Tylenol 325mg Tab) 650 mg PO Q4 PRN PRN Reason: Pain, Mild (1-3) Benzocaine/Menthol (Cepacol Sore Throat) 1 sveta MT BID PRN PRN Reason: Sore Throat Hydromorphone HCl (Dilaudid) 2 mg IVP Q6H PRN PRN Reason: Pain, severe (8-10) Sodium Chloride (Sodium Chloride 0.9%) 1,000 mls @ 100 mls/hr IV .Q10H [facility] Last Admin: 01/05/17 05:33 Dose: 100 mls/hr Sodium Chloride (Sodium Chloride 0.45%) 1,000 mls @ 80 mls/hr IV .[id number] [facility] Stop: 01/06/17 18:00 Last Admin: 01/05/17 18:25 Dose: 80 mls/hr Insulin Human Lispro (Humalog High) 0 units SC ACHS [facility] PRN Reason: Protocol Last Admin: 01/05/17 18:00 Dose: 4 units Ondansetron HCl (Zofran Inj) 4 mg IVP Q6H PRN PRN Reason: Nausea/Vomiting Oxycodone/Acetaminophen (Percocet 5/325 Mg Tab) 1 tab PO Q4H PRN PRN Reason: Pain, moderate (4-7) Stop: 01/08/17 17:19 Tramadol HCl (Ultram) 50 mg PO TID PRN PRN Reason: Pain, moderate (4-7) Last Admin: 01/05/17 08:26 Dose: 50 mg Physical Exam - Constitutional Appears: No Acute Distress - Head Exam Head Exam: ATRAUMATIC, NORMAL INSPECTION, NORMOCEPHALIC - Eye Exam Eye Exam: EOMI, PERRL, Scleral icterus - Neck Exam Neck exam: Positive for: Normal Inspection - Respiratory Exam Respiratory Exam: Clear to Auscultation Bilateral. absent: Rales, Rhonchi, Wheezes - Cardiovascular Exam Cardiovascular Exam: RRR, +S1, +S2. absent: Gallop, Rubs - GI/Abdominal Exam GI & Abdominal Exam: Soft. absent: Distended, Firm, Guarding, Rebound, Tenderness - Extremities Exam Extremities exam: Positive for: normal inspection - Neurological Exam Neurological exam: Alert, Oriented x3 - Psychiatric Exam Psychiatric exam: Normal Affect, Normal Mood - Skin Skin Exam: Dry, Intact, Warm Additional comments: jaundice Results - Vital Signs Recent Vital Signs: Last Vital Signs Temp 97.4 F L 01/05/17 17:42 Pulse 62 01/05/17 17:42 Resp 17 01/05/17 17:42 BP 124/64 01/05/17 17:42 Pulse Ox 99 01/05/17 17:42 - Labs Result Diagrams: 01/05/17 06:51 01/05/17 06:51 Labs: Laboratory Results - last 24 hr 01/04/17 01/05/17 01/05/17 21:04 06:51 06:51 WBC 9.4 D RBC 3.13 L Hgb 10.0 L Hct 31.5 L MCV 100.6 MCH 31.9 MCHC 31.7 RDW 16.2 H Plt Count 252 MPV 12.2 H Sodium 135 Potassium 4.4 Chloride 102 Carbon Dioxide 24 Anion Gap 13 BUN 23 H Creatinine 0.8 Est GFR ( Amer) > 60 Est GFR (Non-Af Amer) > 60 POC Glucose (mg/dL) 257 H Random Glucose 264 H Calcium 8.5 Total Bilirubin 19.0 H* AST 190 H D ALT 167 H Alkaline Phosphatase 1334 H Total Protein 5.4 L Albumin 2.6 L Globulin 2.8 Albumin/Globulin Ratio 0.9 L 01/05/17 01/05/17 01/05/17 07:32 11:23 18:49 WBC RBC Hgb Hct MCV MCH MCHC RDW Plt Count MPV Sodium Potassium Chloride Carbon Dioxide Anion Gap BUN Creatinine Est GFR ( Amer) Est GFR (Non-Af Amer) POC Glucose (mg/dL) 299 H 228 H 203 H Random Glucose Calcium Total Bilirubin AST ALT Alkaline Phosphatase Total Protein Albumin Globulin Albumin/Globulin Ratio Assessment & Plan - Assessment and Plan (Free Text) Plan: 76yo male w/ history of DM type 2 presents with painless jaundice, weight loss and weakness discovered to have a 2cm pancreatic head mass -FNA and PTC biopsies taken -Pathology results pending for further recommendations -Treatment options to be discussed with the patient -In the meantime, continue conservative medical management -Further recommendations as per Dr. Bautista Patient seen and case discussed with attending, Dr. Bautista - Date & Time Date: 01/05/17 Time: 21:17 <Danielle Bautista - Last Filed: 01/08/17 13:08> Meds - Medications Medications: Current Medications Acetaminophen (Tylenol 325mg Tab) 650 mg PO Q4 PRN PRN Reason: Pain, Mild (1-3) Benzocaine/Menthol (Cepacol Sore Throat) 1 sveta MT BID PRN PRN Reason: Sore Throat Last Admin: 01/08/17 12:10 Dose: 1 sveta Hydromorphone HCl (Dilaudid) 2 mg IVP Q6H PRN PRN Reason: Pain, severe (8-10) Sodium Chloride (Sodium Chloride 0.9%) 1,000 mls @ 100 mls/hr IV .Q10H [facility] Last Admin: 01/06/17 22:30 Dose: 100 mls/hr Ceftriaxone Sodium (Rocephin 1 Gram Ivpb) 1 gm in 100 mls @ 100 mls/hr IVPB DAILY [facility] PRN Reason: Protocol Last Admin: 01/08/17 09:15 Dose: 100 mls/hr Insulin Human Lispro (Humalog High) 0 units SC ACHS [facility] PRN Reason: Protocol Last Admin: 01/08/17 12:07 Dose: 12 units Ondansetron HCl (Zofran Inj) 4 mg IVP Q6H PRN PRN Reason: Nausea/Vomiting Oxycodone/Acetaminophen (Percocet 5/325 Mg Tab) 1 tab PO Q4H PRN PRN Reason: Pain, moderate (4-7) Stop: 01/08/17 17:19 Polyethylene Glycol (Miralax) 17 gm PO DAILY [facility] Last Admin: 01/08/17 09:16 Dose: 17 gm Tramadol HCl (Ultram) 50 mg PO TID PRN PRN Reason: Pain, moderate (4-7) Last Admin: 01/08/17 12:09 Dose: 50 mg Results - Vital Signs Recent Vital Signs: Last Vital Signs Temp 97.8 F 01/08/17 06:00 Pulse 86 01/08/17 06:00 Resp 22 01/08/17 06:00 BP 97/64 L 01/08/17 06:00 Pulse Ox 97 01/08/17 06:00 - Labs Result Diagrams: 01/08/17 10:15 01/08/17 10:15 Labs: Laboratory Results - last 24 hr 01/07/17 01/07/17 01/08/17 15:37 21:02 07:53 WBC RBC Hgb Hct MCV MCH MCHC RDW Plt Count MPV Gran % Lymph % (Auto) [place] % (Auto) Eos % (Auto) Baso % (Auto) Gran # Lymph # [place] # Eos # Baso # Neutrophils % (Manual) Lymphocytes % (Manual) Monocytes % (Manual) Eosinophils % (Manual) Platelet Evaluation Hypochromasia Anisocytosis (manual) Sodium Potassium Chloride Carbon Dioxide Anion Gap BUN Creatinine Est GFR ( Amer) Est GFR (Non-Af Amer) POC Glucose (mg/dL) 256 H 245 H 255 H Random Glucose Calcium Total Bilirubin AST ALT Alkaline Phosphatase Total Protein Albumin Globulin Albumin/Globulin Ratio 01/08/17 01/08/17 01/08/17 10:15 10:15 11:36 WBC 17.8 H D RBC 3.02 L Hgb 10.0 L Hct 30.8 L MCV 102.0 MCH 33.1 MCHC 32.5 RDW 15.9 H Plt Count 269 MPV 11.6 H Gran % 91.3 H Lymph % (Auto) 2.9 L [place] % (Auto) 3.7 Eos % (Auto) 2.0 Baso % (Auto) 0.1 Gran # 16.24 H Lymph # 0.5 L [place] # 0.7 H Eos # 0.4 Baso # 0.02 Neutrophils % (Manual) 92 H Lymphocytes % (Manual) 4 L Monocytes % (Manual) 3 Eosinophils % (Manual) 1 Platelet Evaluation Normal Hypochromasia 1+ Anisocytosis (manual) 1+ Sodium 131 L Potassium 3.6 Chloride 103 Carbon Dioxide 21 Anion Gap 11 BUN 22 H Creatinine 0.9 Est GFR ( Amer) > 60 Est GFR (Non-Af Amer) > 60 POC Glucose (mg/dL) 377 H Random Glucose 264 H Calcium 8.1 L Total Bilirubin 8.5 H AST 47 ALT 98 H Alkaline Phosphatase 757 H D Total Protein 4.8 L Albumin 2.2 L Globulin 2.6 Albumin/Globulin Ratio 0.8 L Attending/Attestation - Attestation I have personally seen and examined this patient.: Yes I have fully participated in the care of the patient.: Yes I have reviewed all pertinent clinical information: Yes
[2017-01-06 07:08] LABS: HEMATOCRIT 31.3 % (42.0-52.0); MEAN CELL VOLUME 100.3 fl (80.0-105.0); MEAN CORPUSCULAR HEMOGLOBIN 32.4 pg (25.0-35.0); MEAN CORPUSCULAR HGB CONC 32.3 g/dl (31.0-37.0); MEAN PLATELET VOLUME 11.9 fl (7.0-11.0); RED CELL DISTRIBUTION WIDTH 16.3 % (11.5-14.5); WHITE BLOOD COUNT 7.6 10^3/ul (4.5-11.0)
[2017-01-06 07:50] LABS: ALB/GLOB RATIO 0.9 (1.1-1.8); ALKALINE PHOSPHATASE 1293 U/L (38-126); ALT/SGPT 156 U/L (7-56); AST/SGOT 153 U/L (17-59); BLOOD UREA NITROGEN 23 mg/dL (7-21); CALCIUM 8.2 mg/dL (8.4-10.5); CARBON DIOXIDE 24 mmol/L (21-33); CHLORIDE 103 mmol/L (98-107); GFR AFRICAN-AMERICAN > 60; GLUCOSE,RANDOM 181 mg/dL (70-110); POTASSIUM 3.8 mmol/L (3.6-5.0); SODIUM 134 mmol/L (132-148); TOTAL PROTEIN 5.1 g/dL (5.8-8.3)
[2017-01-06] MEDS: Insulin Lispro (HUMAlog) HIGH Coverage SC SCH ×4 (08:19→21:40)
[2017-01-06] MEDS: cefTRIAXone 1 gm 1 GM/100 ML BAG IVPB SCH (09:07)
[2017-01-06] MEDS: Sodium Chloride 0.45% 1,000 ML IV SCH (09:07)
--- NOTE | 2017-01-06 11:42 | CP.PCM.PN ---
<Cory Cooper - Last Filed: 01/06/17 21:20> Subjective - Date & Time of Evaluation Date of Evaluation: 01/06/17 Time of Evaluation: 11:40 - Subjective Subjective: Heme/Onc progress note for Dr. Bautista's service Patient seen and examined at bedside. No acute overnight events or new complaints reported. Denies cp, palpitations, SOB. Objective - Vital Signs/Intake and Output Vital Signs (last 24 hours): Temp Pulse Resp BP Pulse Ox 97.6 F 60 20 101/62 98 01/06/17 08:37 01/06/17 08:37 01/06/17 08:37 01/06/17 08:37 01/06/17 08:37 Intake and Output: 01/06/17 01/06/17 06:59 18:59 Intake Total 300 0 Output Total 500 175 Balance -200 -175 - Medications Medications: Current Medications Acetaminophen (Tylenol 325mg Tab) 650 mg PO Q4 PRN PRN Reason: Pain, Mild (1-3) Benzocaine/Menthol (Cepacol Sore Throat) 1 sveta MT BID PRN PRN Reason: Sore Throat Hydromorphone HCl (Dilaudid) 2 mg IVP Q6H PRN PRN Reason: Pain, severe (8-10) Sodium Chloride (Sodium Chloride 0.9%) 1,000 mls @ 100 mls/hr IV .[facility]10H [facility] Last Admin: 01/05/17 05:33 Dose: 100 mls/hr Sodium Chloride (Sodium Chloride 0.45%) 1,000 mls @ 80 mls/hr IV .[id number] [facility] Stop: 01/06/17 18:00 Last Admin: 01/06/17 09:07 Dose: 80 mls/hr Ceftriaxone Sodium (Rocephin 1 Gram Ivpb) 1 gm in 100 mls @ 100 mls/hr IVPB DAILY [facility] PRN Reason: Protocol Last Admin: 01/06/17 09:07 Dose: 100 mls/hr Insulin Human Lispro (Humalog High) 0 units SC ACHS [facility] PRN Reason: Protocol Last Admin: 01/06/17 08:19 Dose: 4 units Ondansetron HCl (Zofran Inj) 4 mg IVP Q6H PRN PRN Reason: Nausea/Vomiting Oxycodone/Acetaminophen (Percocet 5/325 Mg Tab) 1 tab PO Q4H PRN PRN Reason: Pain, moderate (4-7) Stop: 01/08/17 17:19 Tramadol HCl (Ultram) 50 mg PO TID PRN PRN Reason: Pain, moderate (4-7) Last Admin: 01/06/17 09:08 Dose: 50 mg - Labs Labs: 01/06/17 06:40 01/06/17 06:40 PT 11.8 Seconds (9.9-11.8) 01/03/17 12:33 INR 1.09 (0.93-1.08) H 01/03/17 12:33 APTT 30.4 Seconds (23.7-30.8) 01/03/17 12:33 - Constitutional Appears: Cachectic, Chronically Ill - Head Exam Head Exam: ATRAUMATIC, NORMAL INSPECTION, NORMOCEPHALIC - Eye Exam Eye Exam: EOMI, PERRL, Scleral icterus - ENT Exam ENT Exam: Mucous Membranes Moist - Respiratory Exam Respiratory Exam: Clear to Ausculation Bilateral. absent: Rales, Rhonchi, Wheezes - Cardiovascular Exam Cardiovascular Exam: RRR, +S1, +S2. absent: Gallop, Rubs, Murmur - GI/Abdominal Exam GI & Abdominal Exam: Soft. absent: Distended, Firm, Guarding, Rigid, Tenderness , Rebound - Extremities Exam Extremities Exam: Normal Inspection - Neurological Exam Neurological Exam: Alert, Awake, Oriented x3 - Psychiatric Exam Psychiatric exam: Normal Affect, Normal Mood - Skin Skin Exam: Dry, Intact, Warm Additional comments: jaundice Assessment and Plan - Assessment and Plan (Free Text) Plan: 76yo male w/ history of DM type 2 presents with painless jaundice, weight loss and weakness discovered to have a 2cm pancreatic head mass 1. Pancreatic mass concerning for malignancy 2. Obstructive jaundice 3. Diabetes mellitus type 2 4. Failure to thrive 5. -FNA biopsies taken -Underwent PTC by IR with internal and external biliary stent placement; -Pathology results pending for further recommendations -Treatment options to be discussed with the patient -In the meantime, continue conservative medical management -Advance diet as tolerated -Further recommendations as per Dr. Bautista Patient seen and case discussed with attending, Dr. Bautista <Danielle Bautista P - Last Filed: 01/08/17 13:09> Objective - Vital Signs/Intake and Output Vital Signs (last 24 hours): Temp Pulse Resp BP Pulse Ox 97.8 F 86 22 97/64 L 97 01/08/17 06:00 01/08/17 06:00 01/08/17 06:00 01/08/17 06:00 01/08/17 06:00 Intake and Output: 01/08/17 01/08/17 06:59 18:59 Intake Total 420 Balance 420 - Medications Medications: Current Medications Acetaminophen (Tylenol 325mg Tab) 650 mg PO Q4 PRN PRN Reason: Pain, Mild (1-3) Benzocaine/Menthol (Cepacol Sore Throat) 1 sveta MT BID PRN PRN Reason: Sore Throat Last Admin: 01/08/17 12:10 Dose: 1 sveta Hydromorphone HCl (Dilaudid) 2 mg IVP Q6H PRN PRN Reason: Pain, severe (8-10) Sodium Chloride (Sodium Chloride 0.9%) 1,000 mls @ 100 mls/hr IV .Q10H [facility] Last Admin: 01/06/17 22:30 Dose: 100 mls/hr Ceftriaxone Sodium (Rocephin 1 Gram Ivpb) 1 gm in 100 mls @ 100 mls/hr IVPB DAILY [facility] PRN Reason: Protocol Last Admin: 01/08/17 09:15 Dose: 100 mls/hr Insulin Human Lispro (Humalog High) 0 units SC ACHS [facility] PRN Reason: Protocol Last Admin: 01/08/17 12:07 Dose: 12 units Ondansetron HCl (Zofran Inj) 4 mg IVP Q6H PRN PRN Reason: Nausea/Vomiting Oxycodone/Acetaminophen (Percocet 5/325 Mg Tab) 1 tab PO Q4H PRN PRN Reason: Pain, moderate (4-7) Stop: 01/08/17 17:19 Polyethylene Glycol (Miralax) 17 gm PO DAILY [facility] Last Admin: 01/08/17 09:16 Dose: 17 gm Tramadol HCl (Ultram) 50 mg PO TID PRN PRN Reason: Pain, moderate (4-7) Last Admin: 01/08/17 12:09 Dose: 50 mg - Labs Labs: 01/08/17 10:15 10/14/17 10:15 PT 11.8 Seconds (9.9-11.8) 01/03/17 12:33 INR 1.09 (0.93-1.08) H 01/03/17 12:33 APTT 30.4 Seconds (23.7-30.8) 01/03/17 12:33 Attending/Attestation - Attestation I have personally seen and examined this patient.: Yes I have fully participated in the care of the patient.: Yes I have reviewed all pertinent clinical information, including history, physical exam and plan: Yes
--- NOTE | 2017-01-06 12:27 | CP.PCM.PN ---
<Elisa Campbell - Last Filed: 01/06/17 12:25> Subjective - Date & Time of Evaluation Date of Evaluation: 01/06/17 Time of Evaluation: 10:15 - Subjective Subjective: Seen and examined at the bedside this morning, chart was reviewed. No acute overnight events reported. The patient had a internal and external biliary stent inserted by Dr. Chicho Trujillo, also a dilatation of malignant obstruction. The patient's PTC is draining dark green bile color. Patient denies nausea, vomiting, or abdominal discomfort at this time. Family is at bedside. Denies fever, chills, nausea, vomiting. Objective - Vital Signs/Intake and Output Vital Signs (last 24 hours): Temp Pulse Resp BP Pulse Ox 97.6 F 60 20 101/62 98 01/06/17 08:37 01/06/17 08:37 01/06/17 08:37 01/06/17 08:37 01/06/17 08:37 Intake and Output: 01/06/17 01/06/17 06:59 18:59 Intake Total 300 0 Output Total 500 175 Balance -200 -175 - Medications Medications: Current Medications Acetaminophen (Tylenol 325mg Tab) 650 mg PO Q4 PRN PRN Reason: Pain, Mild (1-3) Benzocaine/Menthol (Cepacol Sore Throat) 1 sveta MT BID PRN PRN Reason: Sore Throat Hydromorphone HCl (Dilaudid) 2 mg IVP Q6H PRN PRN Reason: Pain, severe (8-10) Sodium Chloride (Sodium Chloride 0.9%) 1,000 mls @ 100 mls/hr IV .Q10H [facility] Last Admin: 01/05/17 05:33 Dose: 100 mls/hr Sodium Chloride (Sodium Chloride 0.45%) 1,000 mls @ 80 mls/hr IV .[id number] [facility] Stop: 01/06/17 18:00 Last Admin: 01/06/17 09:07 Dose: 80 mls/hr Ceftriaxone Sodium (Rocephin 1 Gram Ivpb) 1 gm in 100 mls @ 100 mls/hr IVPB DAILY [facility]E PRN Reason: Protocol Last Admin: 01/06/17 09:07 Dose: 100 mls/hr Insulin Human Lispro (Humalog High) 0 units SC ACHS [facility]BIE PRN Reason: Protocol Last Admin: 01/06/17 08:19 Dose: 4 units Ondansetron HCl (Zofran Inj) 4 mg IVP Q6H PRN PRN Reason: Nausea/Vomiting Oxycodone/Acetaminophen (Percocet 5/325 Mg Tab) 1 tab PO Q4H PRN PRN Reason: Pain, moderate (4-7) Stop: 01/08/17 17:19 Tramadol HCl (Ultram) 50 mg PO TID PRN PRN Reason: Pain, moderate (4-7) Last Admin: 01/06/17 09:08 Dose: 50 mg - Labs Labs: 01/06/17 06:40 01/06/17 06:40 PT 11.8 Seconds (9.9-11.8) 01/03/17 12:33 INR 1.09 (0.93-1.08) H 01/03/17 12:33 APTT 30.4 Seconds (23.7-30.8) 01/03/17 12:33 - Constitutional Appears: No Acute Distress - Head Exam Head Exam: NORMOCEPHALIC - Eye Exam Eye Exam: Scleral icterus - ENT Exam ENT Exam: Mucous Membranes Moist - Neck Exam Neck Exam: Normal Inspection - Respiratory Exam Respiratory Exam: NORMAL BREATHING PATTERN. absent: Respiratory Distress - Cardiovascular Exam Cardiovascular Exam: +S1, +S2 - GI/Abdominal Exam GI & Abdominal Exam: Soft, Normal Bowel Sounds. absent: Guarding, Tenderness, Rebound Additional comments: biliary drain site dry and intact, no erythema or bleeding - Extremities Exam Extremities Exam: Normal Capillary Refill. absent: Calf Tenderness, Pedal Edema - Neurological Exam Neurological Exam: Alert, Awake, Oriented x3 - Skin Skin Exam: Dry, Warm Additional comments: remains jaundiced but notice some improvement Assessment and Plan - Assessment and Plan (Free Text) Assessment: Assessment: Obstructive jaundice, EUS revealed a 2 cm size hypoechoic lesion in the head of the pancreas closer to the ampullary area. s/p biopsies Attempted ERCP, unable to cannulate, was not successful biopsy of the periampullary tissue done. Status post internal and external biliary drain with dilatation of malignant obstruction Weight loss History of diabetes mellitus Plan: advance diet to low-fat diet Trend LFTs Cepacol lozenges Follow-up biopsy and cytology possible future plans for a metal stent after review of biopsies Seen and discussed with Dr. Bruce. <Yomaira Bradley V - Last Filed: 01/06/17 22:19> Objective - Vital Signs/Intake and Output Vital Signs (last 24 hours): Temp Pulse Resp BP Pulse Ox 97.8 F 77 20 102/61 100 01/06/17 16:00 01/06/17 16:00 01/06/17 16:00 01/06/17 16:00 01/06/17 16:00 Intake and Output: 01/06/17 01/07/17 18:59 06:59 Intake Total 0 Output Total 175 Balance -175 - Medications Medications: Current Medications Acetaminophen (Tylenol 325mg Tab) 650 mg PO Q4 PRN PRN Reason: Pain, Mild (1-3) Benzocaine/Menthol (Cepacol Sore Throat) 1 sveta MT BID PRN PRN Reason: Sore Throat Hydromorphone HCl (Dilaudid) 2 mg IVP Q6H PRN PRN Reason: Pain, severe (8-10) Sodium Chloride (Sodium Chloride 0.9%) 1,000 mls @ 100 mls/hr IV .Q10H [facility] Last Admin: 01/05/17 05:33 Dose: 100 mls/hr Ceftriaxone Sodium (Rocephin 1 Gram Ivpb) 1 gm in 100 mls @ 100 mls/hr IVPB DAILY [facility]E PRN Reason: Protocol Last Admin: 01/06/17 09:07 Dose: 100 mls/hr Insulin Human Lispro (Humalog High) 0 units SC ACHS [facility] PRN Reason: Protocol Last Admin: 01/06/17 21:40 Dose: Not Given Ondansetron HCl (Zofran Inj) 4 mg IVP Q6H PRN PRN Reason: Nausea/Vomiting Oxycodone/Acetaminophen (Percocet 5/325 Mg Tab) 1 tab PO Q4H PRN PRN Reason: Pain, moderate (4-7) Stop: 01/08/17 17:19 Tramadol HCl (Ultram) 50 mg PO TID PRN PRN Reason: Pain, moderate (4-7) Last Admin: 01/06/17 09:08 Dose: 50 mg - Labs Labs: 01/06/17 06:40 01/06/17 06:40 PT 11.8 Seconds (9.9-11.8) 01/03/17 12:33 INR 1.09 (0.93-1.08) H 01/03/17 12:33 APTT 30.4 Seconds (23.7-30.8) 01/03/17 12:33 Attending/Attestation - Attestation I have personally seen and examined this patient.: Yes I have fully participated in the care of the patient.: Yes I have reviewed all pertinent clinical information, including history, physical exam and plan: Yes Notes (Text): This is an addendum to GI progress report dictated by Elisa Campbell APN.The patient was seen and examined earlier. Medical records, lab studies, imagings were reviewed. Last 24 hours events reviewed. Agreed with the above treatment plan as outlined in Elisa Campbell APN's notes the with the addition of the following patient's appears still jaundiced Status post PTCA significant biliary drainage noticed Discussed with the pathologist EUS guided fine-needle biopsy confirms the pancreatic head mass adenocarcinoma The ampullary biopsy has highly suspicious cells Most likely the patient has head of the pancreas cancer infiltrated into the ampullary area. Will discuss with the oncologist and also interventional radiologist regarding this patient for internalizing stent and the long-term management Close follow-up of electrolytes in view of the significant biliary output 01/06/17 22:14 01/06/17 22:18
[2017-01-06] MEDS: Sodium Chloride 0.9% 1,000 ML IV SCH (22:30)
[2017-01-07 06:56] LABS: HEMATOCRIT 31.9 % (42.0-52.0); MEAN CELL VOLUME 100.6 fl (80.0-105.0); MEAN CORPUSCULAR HEMOGLOBIN 32.5 pg (25.0-35.0); MEAN CORPUSCULAR HGB CONC 32.3 g/dl (31.0-37.0); MEAN PLATELET VOLUME 12.1 fl (7.0-11.0); RED CELL DISTRIBUTION WIDTH 16.2 % (11.5-14.5); WHITE BLOOD COUNT 9.7 10^3/ul (4.5-11.0)
[2017-01-07 07:37] LABS: ALB/GLOB RATIO 0.9 (1.1-1.8); ALKALINE PHOSPHATASE 1075 U/L (38-126); ALT/SGPT 125 U/L (7-56); AST/SGOT 75 U/L (17-59); BLOOD UREA NITROGEN 23 mg/dL (7-21); CALCIUM 8.2 mg/dL (8.4-10.5); CARBON DIOXIDE 20 mmol/L (21-33); CHLORIDE 105 mmol/L (98-107); GFR AFRICAN-AMERICAN > 60; GLUCOSE,RANDOM 195 mg/dL (70-110); POTASSIUM 3.8 mmol/L (3.6-5.0); SODIUM 133 mmol/L (132-148)
[2017-01-07] MEDS: Insulin Lispro (HUMAlog) HIGH Coverage SC SCH ×4 (08:03→21:57)
[2017-01-07] MEDS: cefTRIAXone 1 gm 1 GM/100 ML BAG IVPB SCH (10:13)
--- NOTE | 2017-01-07 10:18 | CP.PCM.PN ---
<Cory Cooper - Last Filed: 01/07/17 17:36> Subjective - Date & Time of Evaluation Date of Evaluation: 01/07/17 Time of Evaluation: 10:18 - Subjective Subjective: Heme/Onc progress note for Dr. Bautista's service Patient seen and examined at bedside this morning with his son present at bedside. No acute overnight events or new complaints reported. Denied chest pain , palpitations, SOB. Objective - Vital Signs/Intake and Output Vital Signs (last 24 hours): Temp Pulse Resp BP Pulse Ox 98.4 F 79 20 98/58 L 100 01/07/17 08:28 01/07/17 08:28 01/07/17 08:28 01/07/17 08:28 01/07/17 08:28 Intake and Output: 01/07/17 01/07/17 06:59 18:59 Intake Total 1740 240 Balance 1740 240 - Medications Medications: Current Medications Acetaminophen (Tylenol 325mg Tab) 650 mg PO Q4 PRN PRN Reason: Pain, Mild (1-3) Benzocaine/Menthol (Cepacol Sore Throat) 1 sveta MT BID PRN PRN Reason: Sore Throat Hydromorphone HCl (Dilaudid) 2 mg IVP Q6H PRN PRN Reason: Pain, severe (8-10) Sodium Chloride (Sodium Chloride 0.9%) 1,000 mls @ 100 mls/hr IV .Q10H [facility] Last Admin: 01/06/17 22:30 Dose: 100 mls/hr Ceftriaxone Sodium (Rocephin 1 Gram Ivpb) 1 gm in 100 mls @ 100 mls/hr IVPB DAILY [facility]BIE PRN Reason: Protocol Last Admin: 01/06/17 09:07 Dose: 100 mls/hr Insulin Human Lispro (Humalog High) 0 units SC ACHS [facility]E PRN Reason: Protocol Last Admin: 01/07/17 08:03 Dose: 4 units Ondansetron HCl (Zofran Inj) 4 mg IVP Q6H PRN PRN Reason: Nausea/Vomiting Oxycodone/Acetaminophen (Percocet 5/325 Mg Tab) 1 tab PO Q4H PRN PRN Reason: Pain, moderate (4-7) Stop: 01/08/17 17:19 Tramadol HCl (Ultram) 50 mg PO TID PRN PRN Reason: Pain, moderate (4-7) Last Admin: 01/06/17 09:08 Dose: 50 mg - Labs Labs: 01/07/17 06:41 01/07/17 06:41 PT 11.8 Seconds (9.9-11.8) 01/03/17 12:33 INR 1.09 (0.93-1.08) H 01/03/17 12:33 APTT 30.4 Seconds (23.7-30.8) 01/03/17 12:33 - Constitutional Appears: Cachectic, Chronically Ill - Head Exam Head Exam: ATRAUMATIC, NORMAL INSPECTION, NORMOCEPHALIC - Eye Exam Eye Exam: EOMI, Scleral icterus Pupil Exam: PERRL - ENT Exam ENT Exam: Mucous Membranes Moist - Respiratory Exam Respiratory Exam: Clear to Ausculation Bilateral. absent: Rales, Rhonchi, Wheezes - Cardiovascular Exam Cardiovascular Exam: RRR, +S1, +S2. absent: Gallop, Rubs, Murmur - GI/Abdominal Exam GI & Abdominal Exam: Soft. absent: Distended, Firm, Guarding, Rigid, Tenderness , Rebound - Neurological Exam Neurological Exam: Alert, Awake, Oriented x3 - Psychiatric Exam Psychiatric exam: Normal Affect, Normal Mood - Skin Skin Exam: Dry, Intact, Warm Additional comments: jaundice Assessment and Plan - Assessment and Plan (Free Text) Plan: 76yo male w/ history of DM type 2 presents with painless jaundice, weight loss and weakness discovered to have a 2cm pancreatic head mass 1. Pancreatic adenocarcinoma 2. Obstructive jaundice 3. Diabetes mellitus type 2 4. Failure to thrive -Pathology results reviewed; Consistent with pancreatic adenocarcinoma with invasion into the ampulla -Underwent PTC by IR with internal and external biliary stent placement; -Pancreatic protocol CT ordered for further evaluation and determine if there is vascular involvement -Surgery consulted for evaluation of operability -Currently patient is a T2-T3/Stage IIa-IIb based on size of mass and no apparent metastasis at this time -Radiation oncology consulted - Dr. Paz -In the meantime, continue conservative medical management -Further recommendations as per Dr. Bautista Patient seen and case discussed with attending, Dr. Bautista <Danielle Bautista P - Last Filed: 01/08/17 13:10> Objective - Vital Signs/Intake and Output Vital Signs (last 24 hours): Temp Pulse Resp BP Pulse Ox 97.8 F 86 22 97/64 L 97 01/08/17 06:00 01/08/17 06:00 01/08/17 06:00 01/08/17 06:00 01/08/17 06:00 Intake and Output: 01/08/17 01/08/17 06:59 18:59 Intake Total 420 Balance 420 - Medications Medications: Current Medications Acetaminophen (Tylenol 325mg Tab) 650 mg PO Q4 PRN PRN Reason: Pain, Mild (1-3) Benzocaine/Menthol (Cepacol Sore Throat) 1 sveta MT BID PRN PRN Reason: Sore Throat Last Admin: 01/08/17 12:10 Dose: 1 sveta Hydromorphone HCl (Dilaudid) 2 mg IVP Q6H PRN PRN Reason: Pain, severe (8-10) Sodium Chloride (Sodium Chloride 0.9%) 1,000 mls @ 100 mls/hr IV .Q10H [facility] Last Admin: 01/06/17 22:30 Dose: 100 mls/hr Ceftriaxone Sodium (Rocephin 1 Gram Ivpb) 1 gm in 100 mls @ 100 mls/hr IVPB DAILY [facility]E PRN Reason: Protocol Last Admin: 01/08/17 09:15 Dose: 100 mls/hr Insulin Human Lispro (Humalog High) 0 units SC ACHS [facility]BIE PRN Reason: Protocol Last Admin: 01/08/17 12:07 Dose: 12 units Ondansetron HCl (Zofran Inj) 4 mg IVP Q6H PRN PRN Reason: Nausea/Vomiting Oxycodone/Acetaminophen (Percocet 5/325 Mg Tab) 1 tab PO Q4H PRN PRN Reason: Pain, moderate (4-7) Stop: 01/08/17 17:19 Polyethylene Glycol (Miralax) 17 gm PO DAILY [facility] Last Admin: 01/08/17 09:16 Dose: 17 gm Tramadol HCl (Ultram) 50 mg PO TID PRN PRN Reason: Pain, moderate (4-7) Last Admin: 01/08/17 12:09 Dose: 50 mg - Labs Labs: 01/08/17 10:15 01/08/17 10:15 PT 11.8 Seconds (9.9-11.8) 01/03/17 12:33 INR 1.09 (0.93-1.08) H 01/03/17 12:33 APTT 30.4 Seconds (23.7-30.8) 01/03/17 12:33 Attending/Attestation - Attestation I have personally seen and examined this patient.: Yes I have fully participated in the care of the patient.: Yes I have reviewed all pertinent clinical information, including history, physical exam and plan: Yes
--- NOTE | 2017-01-07 12:40 | CP.PCM.PN ---
<Elisa Campbell - Last Filed: 01/07/17 12:39> Subjective - Date & Time of Evaluation Date of Evaluation: 01/07/17 Time of Evaluation: 09:35 - Subjective Subjective: Seen and examined at the bedside this morning, The Bedside. Patient Denies Nausea, Vomiting, or Abdominal Pain. He Is Finished His Breakfast, the Tray Is Noted to Be Clear. Reports Having No Bowel Movement since Admission. His PTC Drained about 1300 Cc from yesterday day shift, no acute overnight events reported. Objective - Vital Signs/Intake and Output Vital Signs (last 24 hours): Temp Pulse Resp BP Pulse Ox 98.4 F 79 20 98/58 L 100 01/07/17 08:28 01/07/17 08:28 01/07/17 08:28 01/07/17 08:28 01/07/17 08:28 Intake and Output: 01/07/17 01/07/17 06:59 18:59 Intake Total 1740 240 Balance 1740 240 - Medications Medications: Current Medications Acetaminophen (Tylenol 325mg Tab) 650 mg PO Q4 PRN PRN Reason: Pain, Mild (1-3) Benzocaine/Menthol (Cepacol Sore Throat) 1 sveta MT BID PRN PRN Reason: Sore Throat Hydromorphone HCl (Dilaudid) 2 mg IVP Q6H PRN PRN Reason: Pain, severe (8-10) Sodium Chloride (Sodium Chloride 0.9%) 1,000 mls @ 100 mls/hr IV .Q10H [facility] Last Admin: 01/06/17 22:30 Dose: 100 mls/hr Ceftriaxone Sodium (Rocephin 1 Gram Ivpb) 1 gm in 100 mls @ 100 mls/hr IVPB DAILY [facility]BIE PRN Reason: Protocol Last Admin: 01/07/17 10:13 Dose: 100 mls/hr Insulin Human Lispro (Humalog High) 0 units SC ACHS [facility] PRN Reason: Protocol Last Admin: 01/07/17 11:53 Dose: 12 units Ondansetron HCl (Zofran Inj) 4 mg IVP Q6H PRN PRN Reason: Nausea/Vomiting Oxycodone/Acetaminophen (Percocet 5/325 Mg Tab) 1 tab PO Q4H PRN PRN Reason: Pain, moderate (4-7) Stop: 01/08/17 17:19 Tramadol HCl (Ultram) 50 mg PO TID PRN PRN Reason: Pain, moderate (4-7) Last Admin: 01/07/17 10:17 Dose: 50 mg - Labs Labs: 01/07/17 06:41 01/07/17 06:41 PT 11.8 Seconds (9.9-11.8) 01/03/17 12:33 INR 1.09 (0.93-1.08) H 01/03/17 12:33 APTT 30.4 Seconds (23.7-30.8) 01/03/17 12:33 - Constitutional Appears: No Acute Distress - Head Exam Head Exam: NORMOCEPHALIC - Eye Exam Eye Exam: Scleral icterus - ENT Exam ENT Exam: Mucous Membranes Moist - Neck Exam Neck Exam: Normal Inspection - Respiratory Exam Respiratory Exam: NORMAL BREATHING PATTERN. absent: Respiratory Distress - Cardiovascular Exam Cardiovascular Exam: +S1, +S2 - GI/Abdominal Exam GI & Abdominal Exam: Soft, Normal Bowel Sounds. absent: Guarding, Tenderness, Rebound Additional comments: left upper sided biliary drain, draining bilious fluid, insertion site is intact no drainage noted - Extremities Exam Extremities Exam: Normal Capillary Refill. absent: Calf Tenderness, Pedal Edema - Neurological Exam Neurological Exam: Alert, Awake, Oriented x3 - Skin Skin Exam: Dry, Warm Additional comments: improving jaundice Assessment and Plan - Assessment and Plan (Free Text) Assessment: Assessment: Pancreatic head Adenocarcinoma Ampullary lesion is suspicious for malignancy Obstructive jaundice, EUS revealed a 2 cm size hypoechoic lesion in the head of the pancreas closer to the ampullary area. s/p biopsies Attempted ERCP, unable to cannulate Status post internal and external biliary drain with dilatation of malignant obstruction Weight loss History of diabetes mellitus Plan: continue diet to low-fat diet Trend LFTs Cepacol lozenges on ceftrixaone start Miralax, hold for stool >2/day pending ct scan w/pancreatic protocol as per oncology Oncology radiation evaluation possible future plans for a metal stent after review of biopsies Seen and discussed with Dr. Bruce. <Yomaira Bradley V - Last Filed: 01/07/17 20:57> Objective - Vital Signs/Intake and Output Vital Signs (last 24 hours): Temp Pulse Resp BP Pulse Ox 97.8 F 82 20 105/61 100 01/07/17 16:00 01/07/17 16:00 01/07/17 16:00 01/07/17 16:00 01/07/17 16:00 Intake and Output: 01/07/17 01/08/17 18:59 06:59 Intake Total 1190 Balance 1190 - Medications Medications: Current Medications Acetaminophen (Tylenol 325mg Tab) 650 mg PO Q4 PRN PRN Reason: Pain, Mild (1-3) Benzocaine/Menthol (Cepacol Sore Throat) 1 sveta MT BID PRN PRN Reason: Sore Throat Hydromorphone HCl (Dilaudid) 2 mg IVP Q6H PRN PRN Reason: Pain, severe (8-10) Sodium Chloride (Sodium Chloride 0.9%) 1,000 mls @ 100 mls/hr IV .Q10H [facility] Last Admin: 01/06/17 22:30 Dose: 100 mls/hr Ceftriaxone Sodium (Rocephin 1 Gram Ivpb) 1 gm in 100 mls @ 100 mls/hr IVPB DAILY [facility]E PRN Reason: Protocol Last Admin: 01/07/17 10:13 Dose: 100 mls/hr Insulin Human Lispro (Humalog High) 0 units SC ACHS [facility] PRN Reason: Protocol Last Admin: 01/07/17 17:11 Dose: 7 units Ondansetron HCl (Zofran Inj) 4 mg IVP Q6H PRN PRN Reason: Nausea/Vomiting Oxycodone/Acetaminophen (Percocet 5/325 Mg Tab) 1 tab PO Q4H PRN PRN Reason: Pain, moderate (4-7) Stop: 01/08/17 17:19 Polyethylene Glycol (Miralax) 17 gm PO DAILY [facility] Tramadol HCl (Ultram) 50 mg PO TID PRN PRN Reason: Pain, moderate (4-7) Last Admin: 01/07/17 10:17 Dose: 50 mg - Labs Labs: 01/07/17 06:41 01/07/17 06:41 PT 11.8 Seconds (9.9-11.8) 01/03/17 12:33 INR 1.09 (0.93-1.08) H 01/03/17 12:33 APTT 30.4 Seconds (23.7-30.8) 01/03/17 12:33 Attending/Attestation - Attestation I have personally seen and examined this patient.: Yes I have fully participated in the care of the patient.: Yes I have reviewed all pertinent clinical information, including history, physical exam and plan: Yes Notes (Text): This is an addendum to GI progress report dictated by Elisa Campbell APN.The patient was seen and examined earlier. Medical records, lab studies, imagings were reviewed. Last 24 hours events reviewed. Agreed with the above treatment plan as outlined in Elisa Campbell APN's notes the with the addition of the following Patient appears less jaundiced. Significant amount of biliary output present Patient's daughter was at bedside at the time of examination Discussed with the Dr. Kyle Discussed with the earlier Requested pancreatic surgeon evaluation Will discuss with Dr. Jeff 01/07/17 20:56
--- NOTE | 2017-01-07 13:07 | CP.PCM.CON ---
History of Present Illness - History of Present Illness History of Present Illness: Mr Ibarra is a 76 year old male with a newly diagnosed pancreatic cancer. He was [place] [facility] after he presented to his PCPs office with heaviness in his legs and inability to ambulate from weakness. As per the patient, he had lost 40-50lbs since April. He also had jaundice for a couple of months. He also noticed greyish colored stool with dark urine. On December 31, 2016, he had a CT of the abdomen and pelvis which revealed dilatation of the hepatic and proximal common bile duct at the level of the pancreas. The visualization was limited due to lack of IV contrast and lack of abdominal fat. He had a MRCP and MR of the abdomen on January 03, 2017 which revealed severe intrahepatic and extrahepatic dilatation. He was evaluated by Dr Bradley who performed an EUS with biopsy which showed a 2cm pancreatic head mass with invasion of the duodenum. A FNA was positive for malignant cells. A Ca 19-9 was elevated at 10,000 and total bilirubin of 10. We are asked to see this patient regarding his case. Review of Systems - Constitutional Constitutional: Weight Loss, Weakness - Gastrointestinal Gastrointestinal: Change in Bowel Habits Additional comments: frequent bowel movements with greyish stool Past Patient History - Infectious Disease Hx of Infectious Diseases: None - Tetanus Immunizations Tetanus Immunization: Unknown - Past Social History Smoking Status: Former Smoker (heavy smoker, quit 2011) - CARDIAC Hx Cardiac Disorders: Yes - PULMONARY Hx Respiratory Disorders: No - NEUROLOGICAL Hx Neurological Disorder: No - HEENT Hx HEENT Problems: No - RENAL Hx Chronic Kidney Disease: No - ENDOCRINE/METABOLIC Hx Diabetes Mellitus Type 1: Yes - HEMATOLOGICAL/ONCOLOGICAL Hx Blood Transfusions: No - INTEGUMENTARY Hx Dermatological Problems: No - MUSCULOSKELETAL/RHEUMATOLOGICAL Hx Musculoskeletal Disorders: No - GASTROINTESTINAL Hx Gastrointestinal Disorders: No - GENITOURINARY/GYNECOLOGICAL Hx Genitourinary Disorders: No - PSYCHIATRIC Hx Psychophysiologic Disorder: No Hx Depression: No Hx Emotional Abuse: No Hx Physical Abuse: No Hx Substance Use: No - SURGICAL HISTORY Hx Surgeries: Yes - ANESTHESIA Hx Anesthesia Reactions: No Hx Malignant Hyperthermia: No Meds Allergies/Adverse Reactions: Allergies Allergy/AdvReac Type Severity Reaction Status Date / Time No Known Allergies Allergy Verified 01/03/17 11:14 - Medications Medications: Current Medications Acetaminophen (Tylenol 325mg Tab) 650 mg PO Q4 PRN PRN Reason: Pain, Mild (1-3) Benzocaine/Menthol (Cepacol Sore Throat) 1 sveta MT BID PRN PRN Reason: Sore Throat Hydromorphone HCl (Dilaudid) 2 mg IVP Q6H PRN PRN Reason: Pain, severe (8-10) Sodium Chloride (Sodium Chloride 0.9%) 1,000 mls @ 100 mls/hr IV .Q10H ON [facility] OF [facility] Last Admin: 01/06/17 22:30 Dose: 100 mls/hr Ceftriaxone Sodium (Rocephin 1 Gram Ivpb) 1 gm in 100 mls @ 100 mls/hr IVPB DAILY [facility] PRN Reason: Protocol Last Admin: 01/07/17 10:13 Dose: 100 mls/hr Insulin Human Lispro (Humalog High) 0 units SC ACHS [facility] PRN Reason: Protocol Last Admin: 01/07/17 11:53 Dose: 12 units Ondansetron HCl (Zofran Inj) 4 mg IVP Q6H PRN PRN Reason: Nausea/Vomiting Oxycodone/Acetaminophen (Percocet 5/325 Mg Tab) 1 tab PO Q4H PRN PRN Reason: Pain, moderate (4-7) Stop: 01/08/17 17:19 Polyethylene Glycol (Miralax) 17 gm PO DAILY [facility] Tramadol HCl (Ultram) 50 mg PO TID PRN PRN Reason: Pain, moderate (4-7) Last Admin: 01/07/17 10:17 Dose: 50 mg Physical Exam - Constitutional Appears: Cachectic, Chronically Ill Additional comments: jaundice - Eye Exam Eye Exam: EOMI - Respiratory Exam Respiratory Exam: Clear to Auscultation Bilateral - Cardiovascular Exam Cardiovascular Exam: REGULAR RHYTHM - GI/Abdominal Exam GI & Abdominal Exam: Normal Bowel Sounds Results - Vital Signs Recent Vital Signs: Last Vital Signs Temp 98.4 F 01/07/17 08:28 Pulse 79 01/07/17 08:28 Resp 20 01/07/17 08:28 BP 98/58 L 01/07/17 08:28 Pulse Ox 100 01/07/17 08:28 - Labs Result Diagrams: 01/07/17 06:41 01/07/17 06:41 Labs: Laboratory Results - last 24 hr 01/06/17 01/06/17 01/06/17 10:28 11:57 16:03 WBC RBC Hgb Hct MCV MCH MCHC RDW Plt Count MPV Sodium Potassium Chloride Carbon Dioxide Anion Gap BUN Creatinine Est GFR ( Amer) Est GFR (Non-Af Amer) POC Glucose (mg/dL) 227 H 281 H Random Glucose Calcium Total Bilirubin AST ALT Alkaline Phosphatase Total Protein Albumin Globulin Albumin/Globulin Ratio CA 19-9 Antigen > 70985 H 01/06/17 01/07/17 01/07/17 21:14 06:41 06:41 WBC 9.7 D RBC 3.17 L Hgb 10.3 L Hct 31.9 L MCV 100.6 MCH 32.5 MCHC 32.3 RDW 16.2 H Plt Count 257 MPV 12.1 H Sodium 133 Potassium 3.8 Chloride 105 Carbon Dioxide 20 L Anion Gap 12 BUN 23 H Creatinine 0.8 Est GFR ( Amer) > 60 Est GFR (Non-Af Amer) > 60 POC Glucose (mg/dL) 180 H Random Glucose 195 H Calcium 8.2 L Total Bilirubin 10.0 H AST 75 H D ALT 125 H Alkaline Phosphatase 1075 H Total Protein 5.0 L Albumin 2.4 L Globulin 2.6 Albumin/Globulin Ratio 0.9 L CA 19-9 Antigen 01/07/17 01/07/17 07:21 11:16 WBC RBC Hgb Hct MCV MCH MCHC RDW Plt Count MPV Sodium Potassium Chloride Carbon Dioxide Anion Gap BUN Creatinine Est GFR ( Amer) Est GFR (Non-Af Amer) POC Glucose (mg/dL) 208 H 389 H Random Glucose Calcium Total Bilirubin AST ALT Alkaline Phosphatase Total Protein Albumin Globulin Albumin/Globulin Ratio CA 19-9 Antigen Assessment & Plan - Assessment and Plan (Free Text) Assessment: Mr Ibarra is a 76 year old male with a newly diagnosed pancreatic cancer. We would agree that he would benefit from a CT scan with pancreatic protocol to ascertain the exact extent of his local disease to ascertain whether there is celiac or SMA involvement. Once we know the stage, one will be able to give recommendations regarding radiation therapy. Generally , if it is unresectable or borderline resectable, one would consider chemoradiation. Or, if the patient is not a surgical candidate due to age and comorbities.
[2017-01-07] MEDS ORDERED: Barium Sulfate Susp 2.1% w/v, 2.0% w/w 450 mL Bottle PO ONE (14:33)
[2017-01-07] MEDS ORDERED: Iohexol 350 MG/100 ML VIAL ONE (18:23)
--- NOTE | 2017-01-07 19:05 | CP.PCM.CON ---
History of Present Illness - History of Present Illness History of Present Illness: Hepatobiliary Surgery 76 M with PMH of DM, CAD came with weakness. Pt reports that he started to have fatigue since April. Also reports weight loss of 50lbs, Juandice, darkening of urine and valdez color stool since then. CT scan showed pancreatic head mass with intra/extra hepatic ductal dilation. No gallstones. MRCP shows CBG of 2.2cm and abrupt narrowing 0.2cm, pancreatic duct is 1.1cm. EUS is done and shows 2cm hypoechoic lesion in pancreatic head. T bili was initially 23 and went down to 10 since percutaneous biliary stent and drainage. CA 19-9 was over 10,000. Oncologist on board. Denies F/C/N/V/D/CP/SOB/hematochezia/hematemesis/ hematuria/syncopy PMH: DM, CAD PSH: b/l LE sx, CABG SS: smoker Meds: ASA Review of Systems - Review of Systems Review of Systems: See HPI Past Patient History - Infectious Disease Hx of Infectious Diseases: None - Tetanus Immunizations Tetanus Immunization: Unknown - Past Social History Smoking Status: Former Smoker (heavy smoker, quit 2011) - CARDIAC Hx Cardiac Disorders: Yes - PULMONARY Hx Respiratory Disorders: No - NEUROLOGICAL Hx Neurological Disorder: No - HEENT Hx HEENT Problems: No - RENAL Hx Chronic Kidney Disease: No - ENDOCRINE/METABOLIC Hx Diabetes Mellitus Type 1: Yes - HEMATOLOGICAL/ONCOLOGICAL Hx Blood Transfusions: No - INTEGUMENTARY Hx Dermatological Problems: No - MUSCULOSKELETAL/RHEUMATOLOGICAL Hx Musculoskeletal Disorders: No - GASTROINTESTINAL Hx Gastrointestinal Disorders: No - GENITOURINARY/GYNECOLOGICAL Hx Genitourinary Disorders: No - PSYCHIATRIC Hx Psychophysiologic Disorder: No Hx Depression: No Hx Emotional Abuse: No Hx Physical Abuse: No Hx Substance Use: No - SURGICAL HISTORY Hx Surgeries: Yes - ANESTHESIA Hx Anesthesia Reactions: No Hx Malignant Hyperthermia: No Meds Allergies/Adverse Reactions: Allergies Allergy/AdvReac Type Severity Reaction Status Date / Time No Known Allergies Allergy Verified 01/03/17 11:14 - Medications Medications: Current Medications Acetaminophen (Tylenol 325mg Tab) 650 mg PO Q4 PRN PRN Reason: Pain, Mild (1-3) Benzocaine/Menthol (Cepacol Sore Throat) 1 sveta MT BID PRN PRN Reason: Sore Throat Hydromorphone HCl (Dilaudid) 2 mg IVP Q6H PRN PRN Reason: Pain, severe (8-10) Sodium Chloride (Sodium Chloride 0.9%) 1,000 mls @ 100 mls/hr IV .Q10H [facility] Last Admin: 01/06/17 22:30 Dose: 100 mls/hr Ceftriaxone Sodium (Rocephin 1 Gram Ivpb) 1 gm in 100 mls @ 100 mls/hr IVPB DAILY [facility] PRN Reason: Protocol Last Admin: 01/07/17 10:13 Dose: 100 mls/hr Insulin Human Lispro (Humalog High) 0 units SC ACHS [facility] PRN Reason: Protocol Last Admin: 01/07/17 17:11 Dose: 7 units Ondansetron HCl (Zofran Inj) 4 mg IVP Q6H PRN PRN Reason: Nausea/Vomiting Oxycodone/Acetaminophen (Percocet 5/325 Mg Tab) 1 tab PO Q4H PRN PRN Reason: Pain, moderate (4-7) Stop: 01/08/17 17:19 Polyethylene Glycol (Miralax) 17 gm PO DAILY [facility] Tramadol HCl (Ultram) 50 mg PO TID PRN PRN Reason: Pain, moderate (4-7) Last Admin: 01/07/17 10:17 Dose: 50 mg Physical Exam - Constitutional Appears: No Acute Distress, Cachectic - Head Exam Head Exam: ATRAUMATIC, NORMAL INSPECTION, NORMOCEPHALIC - Eye Exam Eye Exam: EOMI, Normal appearance, PERRL, Scleral icterus Pupil Exam: NORMAL ACCOMODATION, PERRL - ENT Exam ENT Exam: Mucous Membranes Moist, Normal Exam - Neck Exam Neck exam: Positive for: Normal Inspection - Respiratory Exam Respiratory Exam: Clear to Auscultation Bilateral, NORMAL BREATHING PATTERN - Cardiovascular Exam Cardiovascular Exam: REGULAR RHYTHM - GI/Abdominal Exam GI & Abdominal Exam: Normal Bowel Sounds, Soft. absent: Tenderness Additional comments: Biliary drain in place, bilious fluids. - Rectal Exam Rectal Exam: NORMAL INSPECTION - Extremities Exam Extremities exam: Positive for: normal inspection - Back Exam Back exam: NORMAL INSPECTION - Neurological Exam Neurological exam: Alert, CN II-XII Intact, Normal Gait, Oriented x3, Reflexes Normal - Psychiatric Exam Psychiatric exam: Normal Affect, Normal Mood - Skin Skin Exam: Dry, Intact, Warm Additional comments: Juandice Results - Vital Signs Recent Vital Signs: Last Vital Signs Temp 97.8 F 01/07/17 16:00 Pulse 82 01/07/17 16:00 Resp 20 01/07/17 16:00 BP 105/61 01/07/17 16:00 Pulse Ox 100 01/07/17 16:00 - Labs Result Diagrams: 01/07/17 06:41 01/07/17 06:41 Labs: Laboratory Results - last 24 hr 01/06/17 01/07/17 01/07/17 21:14 06:41 06:41 WBC 9.7 D RBC 3.17 L Hgb 10.3 L Hct 31.9 L MCV 100.6 MCH 32.5 MCHC 32.3 RDW 16.2 H Plt Count 257 MPV 12.1 H Sodium 133 Potassium 3.8 Chloride 105 Carbon Dioxide 20 L Anion Gap 12 BUN 23 H Creatinine 0.8 Est GFR ( Amer) > 60 Est GFR (Non-Af Amer) > 60 POC Glucose (mg/dL) 180 H Random Glucose 195 H Calcium 8.2 L Total Bilirubin 10.0 H AST 75 H D ALT 125 H Alkaline Phosphatase 1075 H Total Protein 5.0 L Albumin 2.4 L Globulin 2.6 Albumin/Globulin Ratio 0.9 L 01/07/17 01/07/17 01/07/17 07:21 11:16 15:37 WBC RBC Hgb Hct MCV MCH MCHC RDW Plt Count MPV Sodium Potassium Chloride Carbon Dioxide Anion Gap BUN Creatinine Est GFR ( Amer) Est GFR (Non-Af Amer) POC Glucose (mg/dL) 208 H 389 H 256 H Random Glucose Calcium Total Bilirubin AST ALT Alkaline Phosphatase Total Protein Albumin Globulin Albumin/Globulin Ratio Assessment & Plan - Assessment and Plan (Free Text) Assessment: Pancreatic adenocarcinoma CT scan showed pancreatic head mass with intra/extra hepatic ductal dilation. No gallstones. MRCP shows CBG of 2.2cm and abrupt narrowing 0.2cm, pancreatic duct is 1.1cm. EUS is shows 2cm hypoechoic lesion in pancreatic head. T bili was initially 23 and went down to 10 since percutaneous biliary stent and drainage. CA 19-9 : 10,000+ -f/u CT pancreatic protocol with triple phase -Medical management -We will evaluate for surgical resectability once CT triple phase complete -Oncologist on board DW Dr. Sen
--- NOTE | 2017-01-07 21:10 | CT ---
EXAM: CT Abdomen Without Intravenous Contrast EXAM DATE/TIME: 01/07/2017 12:14 PM CLINICAL HISTORY: 76 years old, male; Signs and symptoms; Mass, lump, or swelling and other: Jaundice; Additional info: Pancreatic adenocarcinoma TECHNIQUE: Axial computed tomography images of the abdomen without intravenous contrast. All CT scans at this facility use one or more dose reduction techniques, viz.: automated exposure control; ma/kV adjustment per patient size (including targeted exams where dose is matched to indication; i.e. head); or iterative reconstruction technique. Coronal and sagittal reformatted images were created and reviewed. COMPARISON: Prior CT abdomen and pelvis of 12/31/2016 FINDINGS: LOWER THORAX: Small bilateral pleural effusions, larger on the left. This is a new finding. LIVER: See below. No evidence of diffuse liver lesions. GALLBLADDER AND BILE DUCTS: A transhepatic biliary stent has been placed since the prior CT. This does not appear malpositioned. It courses through the common bile duct, and its tip is located in the second duodenal segment. Associated tiny focus of pneumobilia. No evidence of significant biliary ductal dilatation. Previously seen biliary ductal dilatation has resolved. Gallbladder is contracted. PANCREAS: Pancreatic duct is abnormally, diffusely dilated. There is subtle low density in the pancreatic head, which could represent the patient's known pancreatic neoplasm, but recommend clinical correlation. No CT evidence of acute pancreatitis. SPLEEN: No acute abnormality of the spleen identified. ADRENALS: No acute abnormality of the adrenal glands identified. KIDNEYS AND URETERS: Findings suspicious for multifocal pyelonephritis of the right kidney. There are multiple areas of decreased enhancement seen in the right kidney, best visualized on the delayed images. These primarily involve the cortex and are triangular/wedge shaped. They do not appear to represent cysts. Scattered, tiny low density renal lesions, most likely representing cysts. No evidence of hydroureteronephrosis. STOMACH AND BOWEL: Rectum is stool filled and is moderately to markedly dilated. Cannot rule out a fecal impaction. The remainder of the colon is also diffusely stool filled and is top normal in caliber, compatible with diffuse fecal retention/constipation. Otherwise, no significant abnormality of the bowel is identified. No evidence of a diffuse large bowel obstruction. No evidence of small bowel obstruction. APPENDIX: Appendix is seen, and is within normal limits in appearance. INTRAPERITONEAL SPACE: Moderate amount of abdominal and pelvic free fluid is seen, a new finding. No evidence of free air. BONES/JOINTS: No evidence of destructive or otherwise aggressive-appearing bony lesions. SOFT TISSUES: Diffuse, marked subcutaneous edema/anasarca. This is new/increased since the prior CT. Again seen in the right groin soft tissues, anterior to the right common femoral vessels, is a 2 cm well-defined, round mass. This has decreased in density compared to the prior exam, and it could represent a small resolving hematoma. VASCULATURE: Diffuse atherosclerotic disease of the aorta and iliac arteries. No evidence of abdominal aortic aneurysm or dissection. LYMPH NODES: No evidence of diffuse lymphadenopathy. IMPRESSION: - Moderate abdominal and pelvic free fluid/ascites, small bilateral pleural effusions, and diffuse anasarca, new findings compared to a CT done 1 week ago. - Findings suspicious for multifocal pyelonephritis of the right kidney. Recommend clinical correlation. - Stool-filled and dilated rectum. Cannot rule out a fecal impaction. - Small masslike density in the right groin soft tissues, which could represent a resolving hematoma. Please see above for a full description. - Interval placement of a biliary stent, with resolution of the previously seen biliary ductal dilatation. - See above for remaining findings.
[2017-01-08] MEDS: Insulin Lispro (HUMAlog) HIGH Coverage SC SCH ×3 (08:13→17:15)
--- NOTE | 2017-01-08 08:14 | CP.PCM.PN ---
Subjective - Date & Time of Evaluation Date of Evaluation: 01/08/17 Time of Evaluation: 08:13 - Subjective Subjective: General Surgery Note for Dr. Sen Patient seen and examined at bedside. No acute event overnight. Patient resting in bed. Reports having 1 solid, non-bloody, brown BM last night. Tolerating regular diet without issues. Denies any abdominal pain, N/V, F/C/NS. Biliary drain with 1175 cc/24 hrs of serous dark orange/brown fluid. Objective - Vital Signs/Intake and Output Vital Signs (last 24 hours): Temp Pulse Resp BP Pulse Ox 97.8 F 82 20 105/61 100 01/07/17 16:00 01/07/17 16:00 01/07/17 16:00 01/07/17 16:00 01/07/17 16:00 Intake and Output: 01/08/17 01/08/17 06:59 18:59 Intake Total 420 Balance 420 - Medications Medications: Current Medications Acetaminophen (Tylenol 325mg Tab) 650 mg PO Q4 PRN PRN Reason: Pain, Mild (1-3) Benzocaine/Menthol (Cepacol Sore Throat) 1 sveta MT BID PRN PRN Reason: Sore Throat Hydromorphone HCl (Dilaudid) 2 mg IVP Q6H PRN PRN Reason: Pain, severe (8-10) Sodium Chloride (Sodium Chloride 0.9%) 1,000 mls @ 100 mls/hr IV .Q10H [facility] Last Admin: 01/06/17 22:30 Dose: 100 mls/hr Ceftriaxone Sodium (Rocephin 1 Gram Ivpb) 1 gm in 100 mls @ 100 mls/hr IVPB DAILY [facility] PRN Reason: Protocol Last Admin: 01/07/17 10:13 Dose: 100 mls/hr Insulin Human Lispro (Humalog High) 0 units SC ACHS [facility] PRN Reason: Protocol Last Admin: 01/07/17 21:57 Dose: Not Given Ondansetron HCl (Zofran Inj) 4 mg IVP Q6H PRN PRN Reason: Nausea/Vomiting Oxycodone/Acetaminophen (Percocet 5/325 Mg Tab) 1 tab PO Q4H PRN PRN Reason: Pain, moderate (4-7) Stop: 01/08/17 17:19 Polyethylene Glycol (Miralax) 17 gm PO DAILY [facility] Tramadol HCl (Ultram) 50 mg PO TID PRN PRN Reason: Pain, moderate (4-7) Last Admin: 01/07/17 10:17 Dose: 50 mg - Labs Labs: 01/07/17 06:41 01/07/17 06:41 PT 11.8 Seconds (9.9-11.8) 01/03/17 12:33 INR 1.09 (0.93-1.08) H 01/03/17 12:33 APTT 30.4 Seconds (23.7-30.8) 01/03/17 12:33 - Constitutional Appears: No Acute Distress, Cachectic - Head Exam Head Exam: ATRAUMATIC, NORMOCEPHALIC - Eye Exam Eye Exam: Scleral icterus - ENT Exam ENT Exam: Mucous Membranes Moist - Respiratory Exam Respiratory Exam: NORMAL BREATHING PATTERN - Cardiovascular Exam Cardiovascular Exam: REGULAR RHYTHM - GI/Abdominal Exam GI & Abdominal Exam: Soft. absent: Distended, Firm, Guarding, Tenderness, Rebound Additional comments: Biliary drain in place draining dark orange/brown fluid, 1175 cc over last 24 hrs - Neurological Exam Neurological Exam: Alert, Awake - Psychiatric Exam Psychiatric exam: Agitated - Skin Skin Exam: Dry, Warm Additional comments: jaundice Assessment and Plan - Assessment and Plan (Free Text) Assessment: 76 M with Pancreatic adenocarcinoma in head of pancreas CT abd/pelvis: pancreatic head mass with intra/extra hepatic ductal dilation. No gallstones. MRCP: CBD 2.2cm and abrupt narrowing 0.2cm, pancreatic duct is 1.1cm. EUS: 2cm hypoechoic lesion in pancreatic head. T bili: 23 --> 10 after biliary drain CA 19-9: 10,000+ Ct pancreas protocol: Pancreatic duct is abnormally, diffusely dilated. There is subtle low density in the pancreatic head, which could represent the patient's known pancreatic neoplasm, but recommend clinical correlation. No CT evidence of acute pancreatitis. Plan: -f/u Oncology -Analgesics/Anti-emetics PRN -Medical management as per primary -Will DW Dr. Mckinley Decker PGY1
[2017-01-08] MEDS: cefTRIAXone 1 gm 1 GM/100 ML BAG IVPB SCH (09:15)
[2017-01-08] MEDS: POLYETHYLENE GLYCOL 3350 17 GM/Dose PACKET PO SCH (09:16)
[2017-01-08 10:32] LABS: BASO # 0.02 K/mm3 (0.0-2.0); BASO % 0.1 % (0.0-3.0); EOS # 0.4 (0.0-0.7); GRAN # 16.24 (1.4-6.5); GRAN % 91.3 % (50.0-68.0); HEMATOCRIT 30.8 % (42.0-52.0); LYMPH # 0.5 (1.2-3.4); LYMPH % 2.9 % (22.0-35.0); MEAN CORPUSCULAR HEMOGLOBIN 33.1 pg (25.0-35.0); MEAN CORPUSCULAR HGB CONC 32.5 g/dl (31.0-37.0); MEAN PLATELET VOLUME 11.6 fl (7.0-11.0); MONO # 0.7 (0.1-0.6); MONO % 3.7 % (1.0-6.0); PLATELET COUNT 269 10^3/uL (120.0-450.0); RED CELL DISTRIBUTION WIDTH 15.9 % (11.5-14.5); WHITE BLOOD COUNT 17.8 10^3/ul (4.5-11.0)
[2017-01-08 10:53] LABS: ALB/GLOB RATIO 0.8 (1.1-1.8); ALKALINE PHOSPHATASE 757 U/L (38-126); ALT/SGPT 98 U/L (7-56); AST/SGOT 47 U/L (17-59); BILIRUBIN,TOTAL 8.5 mg/dL (0.2-1.3); BLOOD UREA NITROGEN 22 mg/dL (7-21); CALCIUM 8.1 mg/dL (8.4-10.5); CARBON DIOXIDE 21 mmol/L (21-33); CHLORIDE 103 mmol/L (98-107); GFR AFRICAN-AMERICAN > 60; GLUCOSE,RANDOM 264 mg/dL (70-110); POTASSIUM 3.6 mmol/L (3.6-5.0); SODIUM 131 mmol/L (132-148); TOTAL PROTEIN 4.8 g/dL (5.8-8.3)
[2017-01-08 11:46] LABS: NEUTROPHIL 92 % (50.0-70.0)
[2017-01-08 11:47] LABS: ANISOCYTOSIS 1+; EOSINOPHIL 1 % (0.0-3.0); HYPOCHROMIA 1+; PLATELET ESTIMATE NORMAL (NORMAL)
[2017-01-08] MEDS ORDERED: Bisacodyl 5mg EC Tab PO PRN (14:33)
[2017-01-08] MEDS: Sodium Chloride 0.9% 1,000 ML IV SCH ×2 (17:15→22:00)
--- NOTE | 2017-01-08 17:56 | PN ---
DATE: 01/05/2017 SUBJECTIVE: The patient is a 76-year-old male who is status post coronary artery bypass grafting in 2011 with no other significant past medical history who was admitted to the [facility] on 01/03/2017 with painless jaundice. The patient states it was about April that the patient noticed he was becoming jaundiced. Finally, the patient presented to the Emergency Room because of weakness in the arms and legs. He apparently could not walk; therefore, he presented to the Emergency Room and he was admitted. He was also found to have uncontrolled diabetes as well as painless jaundice. When seen today, the patient is in bed. Family is surrounding him at bedside. His only complaint, is that of leg pain and leg weakness. PHYSICAL EXAMINATION VITAL SIGNS: Stable. LUNGS: His lungs are clear anteriorly. HEART: Regular. ABDOMEN: Soft and nontender. LABORATORY DATA: ERCP was attempted for possible biopsy but stent placement had failed. We will be attempting a transdermal biliary drainage in the morning. This morning's lab showed total bilirubin to be 19. Hemoglobin and hematocrit are 10 and 31.5, white blood cell count is 9.4. BUN and creatinine are 23 and 0.8 respectively. Sodium is 135 and potassium is 4.4. AST is elevated at 190 and ALT is elevated at 167. So, we are awaiting the transdermal biliary drain to be placed in the morning and hopeful of results of the biopsy of a 2 cm mass found in the head of the pancreas. Cody Jeff MD MTDD
--- NOTE | 2017-01-08 20:26 | PN ---
DATE: 01/08/2017 SUBJECTIVE: This patient was seen and evaluated earlier. The patient is comfortable. Tolerating the diet. The patient has the drainage. Appears less jaundiced. PHYSICAL EXAMINATION: HEENT: Atraumatic. Anicteric. NECK: Supple. HEART: S1 and S2 heard. LUNGS: Bilateral air entry present. ABDOMEN: Soft. The PTC tube draining well. EXTREMITIES: No edema. No cyanosis. NEUROLOGICALLY: Alert and oriented. Moves all the extremities. LABORATORY DATA: White cell count 17.8 hemoglobin is 10, hematocrit 30.8, platelets 159. Chemistry shows his total bilirubin has come down to 8.5, potassium 3.6, sodium 131. IMPRESSION: This 76-year-old patient with pancreatic cancer with an obstructive jaundice status post ultrasound-guided fine needle aspiration biopsy, confirmed adenocarcinoma. The pancreatic cancer was infiltrating the duodenal wall obliterating the ampullary area, had a PTC and drainage tube placement. The patient's WBC count now is elevated to 17,000. The patient is already on antibiotic Rocephin. RECOMMENDATIONS: Would recommend; 1. Follow up of the CBC and LFTs. 2. Would discuss with Dr. Jeff regarding the ID evaluation. 3. Pancreatic surgical evaluation has been requested. We will consider internalizing the stent after the surgical opinion. Thank you very much for allowing us to participate in the care of the patient. Yomaira Bradley MD MTDDani
--- NOTE | 2017-01-08 20:26 | PN ---
DATE: 01/06/2017 SUBJECTIVE: The patient is a 76-year-old male status post coronary artery bypass grafting in 2011, who presented to the Emergency Room with leg weakness, inability to walk, uncontrolled diabetes, and jaundice. The patient noticed painless jaundice starting in April approximately 6 to 7 months ago and presented to the Emergency Room now for evaluation. During his hospital stay, he underwent an ERCP, but a failed attempt at stent placement. However, he is now status post percutaneous drainage of his biliary tree, drain is functioning of properly. Workup showed a 2 cm tumor in the pancreatic head. He is being followed by Dr. Bradley, the Power Ballast Machine Operator, Dr. Bautista, the Oncologist, and Dr. Chicho Trujillo, performed the pecutaneous biliary drain. When seen, the patient is comfortable. He feels he needs a little more rest before he can decide to getting up to walk. We are looking forward to transfer to transitional care unit for physical therapy and waiting the results of his biopsy from the pancreatic head. His CBC was unremarkable. Serum chemistry shows sodium of 134, potassium is 3.8, BUN of 23 and creatinine of 0.8 this morning. His LFTs are obviously elevated; however, they are coming down nicely, status post going on to be functional. We will continue to follow the patient closely, hopefully transfer to transitional care unit in the morning. Cody Jeff MD MTDDani
--- NOTE | 2017-01-09 00:56 | HP ---
HISTORY OF PRESENT ILLNESS: The patient is a 76-year-old male who presented to the emergency room complaining of pain with jaundice and weakness in the legs, inability to ambulate. He noted onset of jaundice about proximally 6 to 7 months ago; however, only his legs became weak and painful, could not ambulate. He denied to present to the emergency room. PAST MEDICAL HISTORY: Positive for coronary artery bypass grafting in 2011, his history is otherwise unremarkable. ALLERGIES: HE HAS NO KNOWN MEDICAL ALLERGIES. SOCIAL HISTORY: Has not smoked cigarettes since 2011. He does occasionally drink alcohol. MEDICATIONS: His only medication was aspirin 81 mg a day. REVIEW OF SYSTEMS: Otherwise unremarkable. PHYSICAL EXAMINATION: HEENT: The sclerae are icteric. Otherwise, the head, eyes, ears, nose and throat are unremarkable. SKIN: Obviously jaundiced. NECK: Supple with no lymphadenopathy, no goiter. LUNGS: Clear to auscultation and percussion. HEART: Regular. No murmurs are appreciated. ABDOMEN: Soft, flat, nontender. EXTREMITIES: Free of cyanosis, clubbing or edema. NEUROLOGIC: Th patient is awake, alert, and oriented with no focal neurological signs. LABORATORY DATA: Shows markedly elevated liver enzymes including total bilirubin. CAT scan shows a 2 cm mass in the head of the pancreas. So the patient is admitted. Dr. Bradley, the retail marketing executive, is called to consult. ERCP is to be planned. We will continue to follow the patient closely during his hospital stay. Cody Jeff MD
[2017-01-09 07:19] LABS: BASO # 0.02 K/mm3 (0.0-2.0); BASO % 0.1 % (0.0-3.0); EOS # 0.6 (0.0-0.7); EOS % 3.2 % (1.5-5.0); GRAN # 16.82 (1.4-6.5); GRAN % 87.2 % (50.0-68.0); HEMATOCRIT 30.7 % (42.0-52.0); LYMPH # 0.8 (1.2-3.4); LYMPH % 4.2 % (22.0-35.0); MEAN CELL VOLUME 102.3 fl (80.0-105.0); MEAN CORPUSCULAR HEMOGLOBIN 33.3 pg (25.0-35.0); MEAN CORPUSCULAR HGB CONC 32.6 g/dl (31.0-37.0); MEAN PLATELET VOLUME 11.9 fl (7.0-11.0); MONO % 5.3 % (1.0-6.0); RED CELL DISTRIBUTION WIDTH 15.9 % (11.5-14.5); WHITE BLOOD COUNT 19.3 10^3/ul (4.5-11.0)
[2017-01-09 07:32] LABS: ALB/GLOB RATIO 0.9 (1.1-1.8); ALKALINE PHOSPHATASE 691 U/L (38-126); ALT/SGPT 92 U/L (7-56); AST/SGOT 46 U/L (17-59); BILIRUBIN,TOTAL 8.5 mg/dL (0.2-1.3); BLOOD UREA NITROGEN 22 mg/dL (7-21); CALCIUM 8.3 mg/dL (8.4-10.5); CARBON DIOXIDE 20 mmol/L (21-33); CHLORIDE 105 mmol/L (98-107); GFR AFRICAN-AMERICAN > 60; GLUCOSE,RANDOM 237 mg/dL (70-110); SODIUM 133 mmol/L (132-148)
[2017-01-09] MEDS: Insulin Lispro (HUMAlog) HIGH Coverage SC SCH ×4 (08:25→21:27)
[2017-01-09] MEDS: POLYETHYLENE GLYCOL 3350 17 GM/Dose PACKET PO SCH (10:05)
[2017-01-09] MEDS: cefTRIAXone 1 gm 1 GM/100 ML BAG IVPB SCH (10:05)
--- NOTE | 2017-01-09 11:43 | CP.PCM.PN ---
Subjective - Date & Time of Evaluation Date of Evaluation: 01/09/17 Time of Evaluation: 07:45 - Subjective Subjective: Surgery- Dr. Sen Pt S&E at bedside this AM. No acute events overnight. Tolerating diet. NB-BM, + flatus. Denies F/C CP/SOB N/V/D Objective - Vital Signs/Intake and Output Vital Signs (last 24 hours): Temp Pulse Resp BP Pulse Ox 98.0 F 76 96 H 91/54 L 19 L 01/09/17 06:00 01/09/17 06:00 01/09/17 06:00 01/09/17 06:00 01/09/17 06:00 Intake and Output: 01/09/17 01/09/17 06:59 18:59 Intake Total 540 Output Total 200 Balance 340 - Medications Medications: Current Medications Acetaminophen (Tylenol 325mg Tab) 650 mg PO Q4 PRN PRN Reason: Pain, Mild (1-3) Benzocaine/Menthol (Cepacol Sore Throat) 1 sveta MT BID PRN PRN Reason: Sore Throat Last Admin: 01/08/17 12:10 Dose: 1 sveta Bisacodyl (Dulcolax) 5 mg PO HS PRN PRN Reason: Constipation Docusate Sodium (Colace) 100 mg PO BID [facility] Last Admin: 01/09/17 10:03 Dose: 100 mg Hydromorphone HCl (Dilaudid) 2 mg IVP Q6H PRN PRN Reason: Pain, severe (8-10) Sodium Chloride (Sodium Chloride 0.9%) 1,000 mls @ 100 mls/hr IV .Q10H [facility] Last Admin: 01/08/17 22:00 Dose: 100 mls/hr Ceftriaxone Sodium (Rocephin 1 Gram Ivpb) 1 gm in 100 mls @ 100 mls/hr IVPB DAILY [facility] PRN Reason: Protocol Last Admin: 01/09/17 10:05 Dose: 100 mls/hr Insulin Human Lispro (Humalog High) 0 units SC ACHS [facility] PRN Reason: Protocol Last Admin: 01/09/17 08:25 Dose: 10 units Ondansetron HCl (Zofran Inj) 4 mg IVP Q6H PRN PRN Reason: Nausea/Vomiting Polyethylene Glycol (Miralax) 17 gm PO DAILY [facility] Last Admin: 01/09/17 10:05 Dose: 17 gm Tramadol HCl (Ultram) 50 mg PO TID PRN PRN Reason: Pain, moderate (4-7) Last Admin: 01/08/17 12:09 Dose: 50 mg - Labs Labs: 01/09/17 06:30 01/09/17 06:30 PT 11.8 Seconds (9.9-11.8) 01/03/17 12:33 INR 1.09 (0.93-1.08) H 01/03/17 12:33 APTT 30.4 Seconds (23.7-30.8) 01/03/17 12:33 - Constitutional Appears: Non-toxic, No Acute Distress - Head Exam Head Exam: ATRAUMATIC - Eye Exam Eye Exam: EOMI, Scleral icterus - Respiratory Exam Respiratory Exam: absent: Accessory Muscle Use, Respiratory Distress - Cardiovascular Exam Cardiovascular Exam: +S1, +S2. absent: Bradycardia, Tachycardia - GI/Abdominal Exam GI & Abdominal Exam: Soft, Normal Bowel Sounds. absent: Distended, Tenderness - Extremities Exam Extremities Exam: absent: Calf Tenderness - Neurological Exam Neurological Exam: Alert, Awake - Skin Skin Exam: Warm Additional comments: Jaundiced Assessment and Plan - Assessment and Plan (Free Text) Assessment: 76 M with Pancreatic adenocarcinoma in head of pancreas CT abd/pelvis: pancreatic head mass with intra/extra hepatic ductal dilation. No gallstones. MRCP: CBD 2.2cm and abrupt narrowing 0.2cm, pancreatic duct is 1.1cm. EUS: 2cm hypoechoic lesion in pancreatic head. CA 19-9: 10,000+ Ct pancreas protocol: Pancreatic duct is abnormally, diffusely dilated. There is subtle low density in the pancreatic head, which could represent the patient' s known pancreatic neoplasm,No CT evidence of acute pancreatitis. Plan: - f/u Oncology recs - pain control - Medical management as per primary - further recs per Dr. Mckinley De Jesus PGY1
[2017-01-09] MEDS: Piperacillin/Tazobact 3.375 gm 100 ML IVPB SCH (18:51)
[2017-01-09] MEDS: Vancomycin 750mg 750 MG/250 ML BAG IVPB SCH (21:21)
--- NOTE | 2017-01-09 21:21 | CP.PCM.PN ---
Subjective - Date & Time of Evaluation Date of Evaluation: 01/08/17 Time of Evaluation: 18:00 - Subjective Subjective: Had some consitapition the night before. Had to do a manual disempaction last night to have a bowel movement ROS: 12 ROS otherwise negative; Jaundice improved Pain: denies Objective - Vital Signs/Intake and Output Vital Signs (last 24 hours): Temp Pulse Resp BP Pulse Ox 98.0 F 76 96 H 91/54 L 19 L 01/09/17 06:00 01/09/17 06:00 01/09/17 06:00 01/09/17 06:00 01/09/17 06:00 Intake and Output: 01/09/17 01/10/17 18:59 06:59 Intake Total 700 Balance 700 - Medications Medications: Current Medications Acetaminophen (Tylenol 325mg Tab) 650 mg PO Q4 PRN PRN Reason: Pain, Mild (1-3) Benzocaine/Menthol (Cepacol Sore Throat) 1 sveta MT BID PRN PRN Reason: Sore Throat Last Admin: 01/08/17 12:10 Dose: 1 sveta Bisacodyl (Dulcolax) 5 mg PO HS PRN PRN Reason: Constipation Docusate Sodium (Colace) 100 mg PO BID [facility] Last Admin: 01/09/17 17:03 Dose: 100 mg Sodium Chloride (Sodium Chloride 0.9%) 1,000 mls @ 100 mls/hr IV .Q10H [facility] Last Admin: 01/08/17 22:00 Dose: 100 mls/hr Piperacillin Sod/Tazobactam Sod (Zosyn 3.375 In Ns 100ml) 100 mls @ 200 mls/hr IVPB Q6 [facility] PRN Reason: Protocol Stop: 01/18/17 18:31 Last Admin: 01/09/17 18:51 Dose: 200 mls/hr Vancomycin HCl (Vancomycin 750 Mg In Ns) 750 mg in 250 mls @ 167 mls/hr IVPB Q12H [facility] PRN Reason: Protocol Stop: 01/18/17 22:01 Insulin Human Lispro (Humalog High) 0 units SC ACHS [facility] PRN Reason: Protocol Last Admin: 01/09/17 17:02 Dose: 10 units Ondansetron HCl (Zofran Inj) 4 mg IVP Q6H PRN PRN Reason: Nausea/Vomiting Polyethylene Glycol (Miralax) 17 gm PO DAILY [facility] Last Admin: 01/09/17 10:05 Dose: 17 gm Tramadol HCl (Ultram) 50 mg PO TID PRN PRN Reason: Pain, moderate (4-7) Last Admin: 01/08/17 12:09 Dose: 50 mg - Labs Labs: 01/09/17 06:30 01/09/17 06:30 PT 11.8 Seconds (9.9-11.8) 01/03/17 12:33 INR 1.09 (0.93-1.08) H 01/03/17 12:33 APTT 30.4 Seconds (23.7-30.8) 01/03/17 12:33 - Constitutional Appears: Non-toxic - Respiratory Exam Respiratory Exam: Clear to Ausculation Bilateral, NORMAL BREATHING PATTERN - Cardiovascular Exam Cardiovascular Exam: REGULAR RHYTHM, +S1, +S2. absent: Murmur - GI/Abdominal Exam GI & Abdominal Exam: Soft. absent: Guarding, Rigid, Tenderness, Diminished Bowel Sounds - Extremities Exam Extremities Exam: Full ROM, Normal Capillary Refill, Normal Inspection. absent : Joint Swelling, Pedal Edema Assessment and Plan - Assessment and Plan (Free Text) Assessment: 76yo male w/ history of DM type 2 presents with painless jaundice, weight loss and weakness discovered to have a 2cm pancreatic head mass 1. Pancreatic adenocarcinoma 2. Obstructive jaundice 3. Diabetes mellitus type 2 4. Failure to thrive -Pathology results reviewed; Consistent with pancreatic adenocarcinoma with invasion into the ampulla -Underwent PTC by IR with internal and external biliary stent placement; -Pancreatic protocol imaging ordered for further evaluation and determine if there is vascular involvement; will f/u with surgery -Surgery consulted for evaluation of operability -Currently patient is a T2-T3/Stage IIa-IIb based on size of mass and no apparent metastasis at this time -Radiation oncology consulted - Dr. Paz -In the meantime, continue conservative medical management; fluids; pain management -Optimize bowel regimen (Started on stool softeners) for constipation. Tres Bautista MD Oncology Service
--- NOTE | 2017-01-09 21:31 | CP.PCM.PN ---
Subjective - Date & Time of Evaluation Date of Evaluation: 01/09/17 Time of Evaluation: 18:00 - Subjective Subjective: still no BM; yesterday. Otherwise no acute complaints ROS: 12 ROs negative Pain: denies Objective - Vital Signs/Intake and Output Vital Signs (last 24 hours): Temp Pulse Resp BP Pulse Ox 98.0 F 76 96 H 91/54 L 19 L 01/09/17 06:00 01/09/17 06:00 01/09/17 06:00 01/09/17 06:00 01/09/17 06:00 Intake and Output: 01/09/17 01/10/17 18:59 06:59 Intake Total 700 Balance 700 - Medications Medications: Current Medications Acetaminophen (Tylenol 325mg Tab) 650 mg PO Q4 PRN PRN Reason: Pain, Mild (1-3) Benzocaine/Menthol (Cepacol Sore Throat) 1 sveta MT BID PRN PRN Reason: Sore Throat Last Admin: 01/08/17 12:10 Dose: 1 sveta Bisacodyl (Dulcolax) 5 mg PO HS PRN PRN Reason: Constipation Docusate Sodium (Colace) 100 mg PO BID [facility] Last Admin: 01/09/17 17:03 Dose: 100 mg Sodium Chloride (Sodium Chloride 0.9%) 1,000 mls @ 100 mls/hr IV .Q10H [facility] Last Admin: 01/08/17 22:00 Dose: 100 mls/hr Piperacillin Sod/Tazobactam Sod (Zosyn 3.375 In Ns 100ml) 100 mls @ 200 mls/hr IVPB Q6 [facility] PRN Reason: Protocol Stop: 01/18/17 18:31 Last Admin: 01/09/17 18:51 Dose: 200 mls/hr Vancomycin HCl (Vancomycin 750 Mg In Ns) 750 mg in 250 mls @ 167 mls/hr IVPB Q12H [facility] PRN Reason: Protocol Stop: 01/18/17 22:01 Insulin Human Lispro (Humalog High) 0 units SC ACHS [facility] PRN Reason: Protocol Last Admin: 01/09/17 17:02 Dose: 10 units Ondansetron HCl (Zofran Inj) 4 mg IVP Q6H PRN PRN Reason: Nausea/Vomiting Polyethylene Glycol (Miralax) 17 gm PO DAILY [facility] Last Admin: 01/09/17 10:05 Dose: 17 gm Tramadol HCl (Ultram) 50 mg PO TID PRN PRN Reason: Pain, moderate (4-7) Last Admin: 01/08/17 12:09 Dose: 50 mg - Labs Labs: 01/09/17 06:30 01/09/17 06:30 PT 11.8 Seconds (9.9-11.8) 01/03/17 12:33 INR 1.09 (0.93-1.08) H 01/03/17 12:33 APTT 30.4 Seconds (23.7-30.8) 01/03/17 12:33 - Constitutional Appears: Non-toxic - Respiratory Exam Respiratory Exam: Clear to Ausculation Bilateral, NORMAL BREATHING PATTERN - Cardiovascular Exam Cardiovascular Exam: REGULAR RHYTHM, +S1, +S2. absent: Murmur - GI/Abdominal Exam GI & Abdominal Exam: absent: Distended, Rigid, Soft, Hypoactive Bowel Sounds, Rebound - Extremities Exam Extremities Exam: Full ROM, Normal Capillary Refill, Normal Inspection. absent : Calf Tenderness, Joint Swelling, Pedal Edema Assessment and Plan - Assessment and Plan (Free Text) Assessment: 76yo male w/ history of DM type 2 presents with painless jaundice, weight loss and weakness discovered to have a 2cm pancreatic head mass 1. Pancreatic adenocarcinoma 2. Obstructive jaundice 3. Diabetes mellitus type 2 4. Failure to thrive -Pathology results reviewed; Consistent with pancreatic adenocarcinoma with invasion into the ampulla -Underwent PTC by IR with internal and external biliary stent placement; -Pancreatic protocol imaging ordered for further evaluation and determine if there is vascular involvement; will f/u with surgery -Surgery consulted for evaluation of operability -Currently patient is a T2-T3/Stage IIa-IIb based on size of mass and no apparent metastasis at this time -Radiation oncology consulted - Dr. Paz -In the meantime, continue conservative medical management; fluids; pain management -continue to Optimize bowel regimen (given rectal suppository; and then prn enemia if necessary) Tres Bautista MD Oncology Service
[2017-01-09 22:47] LABS: PH,URINE 5.5 (4.7-8.0); URINE BILIRUBIN MODERATE (NEGATIVE); URINE BLOOD NEGATIVE (NEGATIVE); URINE GLUCOSE (UA) 500 mg/dL (NEGATIVE); URINE KETONE NEGATIVE (NEGATIVE); URINE LEUKOCYTE ESTERASE NEGATIVE Leu/uL (NEGATIVE); URINE PROTEIN TRACE mg/dL (<30 mg/dL); URINE UROBILINOGEN 0.2 E.U./dL (<1 E.U./dL)
[2017-01-09 22:51] LABS: URINE APPEARANCE SL CLOUDY (CLEAR); URINE COLOR DARK YELLOW (YELLOW)
[2017-01-09 23:05] LABS: URINE BACTERIA FEW (NEG); URINE RBC NEGATIVE /hpf (0-2); URINE URIC ACID CRYSTALS FEW /hpf
[2017-01-10] MEDS: Piperacillin/Tazobact 3.375 gm 100 ML IVPB SCH ×4 (00:34→17:41)
--- NOTE | 2017-01-10 00:57 | PN ---
DATE: 01/09/2017 SUBJECTIVE: This patient was seen and evaluated earlier today. Tolerating the diet. The patient did have suppositories. The patient had bowel movement after that. PHYSICAL EXAMINATION VITAL SIGNS: Temperature 98, pulse 52, blood pressure 111/73. HEENT: Atraumatic. Anicteric. NECK: Supple. The patient is less jaundiced now. HEART: S1 and S2 heard. LUNGS: Bilateral air entry present. ABDOMEN: Soft. The PTC catheter draining large amount of bile noticed. EXTREMITIES: No edema. No cyanosis. NEUROLOGICALLY: Alert and oriented. Moves all the extremities. LABORATORY DATA: Hemoglobin is 10, hematocrit 30.7, WBC count has increased to 19.3, platelets 307. Chemistry showed BUN 22, creatinine 1.0, total bilirubin has come down to 8.5, AST 46, ALT 92, alkaline phosphate 691. IMPRESSION: This 76-year-old patient with pancreatic adenocarcinoma in the head, infiltrating into the duodenal wall and ampulla, status post PTC and drainage placement. He was biopsied, confirmed adenocarcinoma. Ampullary biopsy showed only atypical cells. Endoscopically, appears to be the duodenal wall involvement with distortion of the ampulla. The patient's real concern now is increasing WBC count. The patient is on only ceftriaxone. I have discussed with Dr. Jeff. The plan is to continue the antibiotics and get an ID consult. We will also send the bile for culture. Thank you very much for allowing us to participate in the care of the patient. Yomaira Bradley MD
[2017-01-10] MEDS: Sodium Chloride 0.9% 1,000 ML IV SCH ×2 (03:10→17:42)
[2017-01-10] MEDS: Insulin Lispro (HUMAlog) HIGH Coverage SC SCH ×4 (07:50→22:14)
--- NOTE | 2017-01-10 08:41 | RAD ---
PROCEDURE: CHEST RADIOGRAPH, 1 VIEW HISTORY: inc wbc COMPARISON: None available. FINDINGS: LUNGS: Clear. PLEURA: No pneumothorax or pleural fluid seen. CARDIOVASCULAR: Normal heart size. Sternotomy wires. OSSEOUS STRUCTURES: No significant abnormalities. VISUALIZED UPPER ABDOMEN: Normal. OTHER FINDINGS: None. IMPRESSION: No active disease.
[2017-01-10] MEDS: Vancomycin 750mg 750 MG/250 ML BAG IVPB SCH ×2 (09:29→22:30)
[2017-01-10] MEDS: POLYETHYLENE GLYCOL 3350 17 GM/Dose PACKET PO SCH (09:29)
[2017-01-10 10:42] LABS: HEMATOCRIT 28.9 % (42.0-52.0); MEAN CELL VOLUME 103.2 fl (80.0-105.0); MEAN CORPUSCULAR HEMOGLOBIN 33.6 pg (25.0-35.0); MEAN CORPUSCULAR HGB CONC 32.5 g/dl (31.0-37.0); MEAN PLATELET VOLUME 10.7 fl (7.0-11.0); RED CELL DISTRIBUTION WIDTH 15.5 % (11.5-14.5); WHITE BLOOD COUNT 14.3 10^3/ul (4.5-11.0)
--- NOTE | 2017-01-10 12:03 | CP.PCM.PN ---
Subjective - Date & Time of Evaluation Date of Evaluation: 01/10/17 Time of Evaluation: 07:15 - Subjective Subjective: General Surgery Note for Dr. Sen Patient seen and examined at bedside. No acute events overnight. Patient resting in bed comfortably. He has no complaints today. He is tolerating diet, passing gas, and having normal BMs. Objective - Vital Signs/Intake and Output Vital Signs (last 24 hours): Temp Pulse Resp BP Pulse Ox 98 F 69 16 90/56 L 100 01/10/17 06:00 01/10/17 06:00 01/10/17 06:00 01/10/17 06:00 01/10/17 06:00 Intake and Output: 01/10/17 01/10/17 06:59 18:59 Intake Total 2900 Output Total 1825 Balance 1075 - Medications Medications: Current Medications Acetaminophen (Tylenol 325mg Tab) 650 mg PO Q4 PRN PRN Reason: Pain, Mild (1-3) Benzocaine/Menthol (Cepacol Sore Throat) 1 sveta MT BID PRN PRN Reason: Sore Throat Last Admin: 01/08/17 12:10 Dose: 1 sveta Bisacodyl (Dulcolax) 5 mg PO HS PRN PRN Reason: Constipation Docusate Sodium (Colace) 100 mg PO BID [facility] Last Admin: 01/10/17 11:21 Dose: Not Given Sodium Chloride (Sodium Chloride 0.9%) 1,000 mls @ 100 mls/hr IV .Q10H [facility] Last Admin: 01/10/17 03:10 Dose: 100 mls/hr Piperacillin Sod/Tazobactam Sod (Zosyn 3.375 In Ns 100ml) 100 mls @ 200 mls/hr IVPB Q6 [facility] PRN Reason: Protocol Stop: 01/18/17 18:31 Last Admin: 01/10/17 05:16 Dose: 200 mls/hr Vancomycin HCl (Vancomycin 750 Mg In Ns) 750 mg in 250 mls @ 167 mls/hr IVPB Q12H [facility] PRN Reason: Protocol Stop: 01/18/17 22:01 Last Admin: 01/10/17 09:29 Dose: 167 mls/hr Insulin Human Lispro (Humalog High) 0 units SC ACHS [facility] PRN Reason: Protocol Last Admin: 01/10/17 11:51 Dose: 4 units Ondansetron HCl (Zofran Inj) 4 mg IVP Q6H PRN PRN Reason: Nausea/Vomiting Polyethylene Glycol (Miralax) 17 gm PO DAILY [facility] Last Admin: 01/10/17 09:29 Dose: 17 gm Tramadol HCl (Ultram) 50 mg PO TID PRN PRN Reason: Pain, moderate (4-7) Last Admin: 01/10/17 10:01 Dose: 50 mg - Labs Labs: 01/10/17 10:15 01/09/17 06:30 PT 11.8 Seconds (9.9-11.8) 01/03/17 12:33 INR 1.09 (0.93-1.08) H 01/03/17 12:33 APTT 30.4 Seconds (23.7-30.8) 01/03/17 12:33 - Constitutional Appears: No Acute Distress - Head Exam Head Exam: ATRAUMATIC, NORMOCEPHALIC - Eye Exam Eye Exam: Scleral icterus (improving) - ENT Exam ENT Exam: Mucous Membranes Moist - Respiratory Exam Respiratory Exam: NORMAL BREATHING PATTERN - Cardiovascular Exam Cardiovascular Exam: REGULAR RHYTHM - GI/Abdominal Exam GI & Abdominal Exam: Soft. absent: Distended, Guarding, Tenderness, Rebound Additional comments: Biliary drain in place draining bilious fluid - 1825 cc/24 hrs - Neurological Exam Neurological Exam: Alert, Awake, Oriented x3 - Psychiatric Exam Psychiatric exam: Normal Affect, Normal Mood - Skin Skin Exam: Dry, Intact, Warm Additional comments: jaundice - improving Assessment and Plan - Assessment and Plan (Free Text) Plan: 76 M with Pancreatic adenocarcinoma in head of pancreas CT abd/pelvis: pancreatic head mass with intra/extra hepatic ductal dilation. No gallstones. MRCP: CBD 2.2cm and abrupt narrowing 0.2cm, pancreatic duct is 1.1cm. EUS: 2cm hypoechoic lesion in pancreatic head. CA 19-9: 10,000+ Ct pancreas protocol: Pancreatic duct is abnormally, diffusely dilated. There is subtle low density in the pancreatic head, which could represent the patient' s known pancreatic neoplasm,No CT evidence of acute pancreatitis. - f/u Oncology - Medical management as per primary - further recs per Dr. Mckinley Decker PGY1
--- NOTE | 2017-01-10 12:24 | CP.PCM.PN ---
<Elisa Campbell - Last Filed: 01/10/17 12:27> Subjective - Date & Time of Evaluation Date of Evaluation: 01/10/17 Time of Evaluation: 10:00 - Subjective Subjective: Seen and examined at the bedside earlier today, family at bedside. Patient denies nausea, vomiting, or abdominal pain. He is tolerating oral intake. He had a large bowel movement last night, that was formed and no reports of bleeding per rectum. Left PTC drain is in place and draining bile-colored secretions.no fever or chills. He had a chest x-ray and that was negative for acute findings. Objective - Vital Signs/Intake and Output Vital Signs (last 24 hours): Temp Pulse Resp BP Pulse Ox 98 F 69 16 90/56 L 100 01/10/17 06:00 01/10/17 06:00 01/10/17 06:00 01/10/17 06:00 01/10/17 06:00 Intake and Output: 01/10/17 01/10/17 06:59 18:59 Intake Total 2900 Output Total 1825 Balance 1075 - Medications Medications: Current Medications Acetaminophen (Tylenol 325mg Tab) 650 mg PO Q4 PRN PRN Reason: Pain, Mild (1-3) Benzocaine/Menthol (Cepacol Sore Throat) 1 sveta MT BID PRN PRN Reason: Sore Throat Last Admin: 01/08/17 12:10 Dose: 1 sveta Bisacodyl (Dulcolax) 5 mg PO HS PRN PRN Reason: Constipation Docusate Sodium (Colace) 100 mg PO BID [facility] Last Admin: 01/10/17 11:21 Dose: Not Given Sodium Chloride (Sodium Chloride 0.9%) 1,000 mls @ 100 mls/hr IV .Q10H [facility] Last Admin: 01/10/17 03:10 Dose: 100 mls/hr Piperacillin Sod/Tazobactam Sod (Zosyn 3.375 In Ns 100ml) 100 mls @ 200 mls/hr IVPB Q6 [facility] PRN Reason: Protocol Stop: 01/18/17 18:31 Last Admin: 01/10/17 05:16 Dose: 200 mls/hr Vancomycin HCl (Vancomycin 750 Mg In Ns) 750 mg in 250 mls @ 167 mls/hr IVPB Q12H [facility] PRN Reason: Protocol Stop: 01/18/17 22:01 Last Admin: 01/10/17 09:29 Dose: 167 mls/hr Insulin Human Lispro (Humalog High) 0 units SC ACHS [facility] PRN Reason: Protocol Last Admin: 01/10/17 11:51 Dose: 4 units Ondansetron HCl (Zofran Inj) 4 mg IVP Q6H PRN PRN Reason: Nausea/Vomiting Polyethylene Glycol (Miralax) 17 gm PO DAILY [facility] Last Admin: 01/10/17 09:29 Dose: 17 gm Tramadol HCl (Ultram) 50 mg PO TID PRN PRN Reason: Pain, moderate (4-7) Last Admin: 01/10/17 10:01 Dose: 50 mg - Labs Labs: 01/10/17 10:15 01/09/17 06:30 PT 11.8 Seconds (9.9-11.8) 01/03/17 12:33 INR 1.09 (0.93-1.08) H 01/03/17 12:33 APTT 30.4 Seconds (23.7-30.8) 01/03/17 12:33 - Constitutional Appears: No Acute Distress - Head Exam Head Exam: NORMOCEPHALIC - Eye Exam Eye Exam: Scleral icterus (improving) - ENT Exam ENT Exam: Mucous Membranes Moist - Neck Exam Neck Exam: Normal Inspection - Respiratory Exam Respiratory Exam: NORMAL BREATHING PATTERN. absent: Respiratory Distress - Cardiovascular Exam Cardiovascular Exam: +S1, +S2 - GI/Abdominal Exam GI & Abdominal Exam: Soft, Normal Bowel Sounds. absent: Guarding, Tenderness, Rebound Additional comments: left PTC drain, draining bilious fluid. - Extremities Exam Extremities Exam: absent: Calf Tenderness, Pedal Edema - Neurological Exam Neurological Exam: Alert, Awake, Oriented x3 - Skin Skin Exam: Dry, Warm - Additional Findings Additional findings: improving jaundice Assessment and Plan - Assessment and Plan (Free Text) Assessment: Assessment: Leukocytosis Pancreatic head Adenocarcinoma Ampullary lesion is atypical cells Obstructive jaundice, EUS revealed a 2 cm size hypoechoic lesion in the head of the pancreas closer to the ampullary area. s/p biopsies Attempted ERCP, unable to cannulate Status post internal and external biliary drain with dilatation of malignant obstruction Weight loss History of diabetes mellitus Plan: FU bile culture continue diet to low-fat diet Trend LFTs on IV antibtiotics: Zosyn/Vancomycin continue Miralax, hold for stool >2/day as per oncology/radiation oncology/surgery/ID Seen and discussed with Dr. Bruce. <Yomaira Bradley V - Last Filed: 01/10/17 19:03> Objective - Vital Signs/Intake and Output Vital Signs (last 24 hours): Temp Pulse Resp BP Pulse Ox 98 F 69 16 90/56 L 100 01/10/17 06:00 01/10/17 06:00 01/10/17 06:00 01/10/17 06:00 01/10/17 06:00 Intake and Output: 01/10/17 01/11/17 18:59 06:59 Intake Total 840 Balance 840 - Medications Medications: Current Medications Acetaminophen (Tylenol 325mg Tab) 650 mg PO Q4 PRN PRN Reason: Pain, Mild (1-3) Benzocaine/Menthol (Cepacol Sore Throat) 1 sveta MT BID PRN PRN Reason: Sore Throat Last Admin: 01/08/17 12:10 Dose: 1 sveta Bisacodyl (Dulcolax) 5 mg PO HS PRN PRN Reason: Constipation Docusate Sodium (Colace) 100 mg PO BID [facility] Last Admin: 01/10/17 17:41 Dose: 100 mg Sodium Chloride (Sodium Chloride 0.9%) 1,000 mls @ 100 mls/hr IV .Q10H [facility] Last Admin: 01/10/17 17:42 Dose: 100 mls/hr Piperacillin Sod/Tazobactam Sod (Zosyn 3.375 In Ns 100ml) 100 mls @ 200 mls/hr IVPB Q6 [facility] PRN Reason: Protocol Stop: 01/18/17 18:31 Last Admin: 01/10/17 17:41 Dose: 200 mls/hr Vancomycin HCl (Vancomycin 750 Mg In Ns) 750 mg in 250 mls @ 167 mls/hr IVPB Q12H [facility] PRN Reason: Protocol Stop: 01/18/17 22:01 Last Admin: 01/10/17 09:29 Dose: 167 mls/hr Insulin Human Lispro (Humalog High) 0 units SC ACHS [facility] PRN Reason: Protocol Last Admin: 01/10/17 17:40 Dose: 3 units Ondansetron HCl (Zofran Inj) 4 mg IVP Q6H PRN PRN Reason: Nausea/Vomiting Polyethylene Glycol (Miralax) 17 gm PO DAILY [facility] Last Admin: 01/10/17 09:29 Dose: 17 gm Tramadol HCl (Ultram) 50 mg PO TID PRN PRN Reason: Pain, moderate (4-7) Last Admin: 01/10/17 10:01 Dose: 50 mg - Labs Labs: 01/10/17 10:15 01/09/17 06:30 PT 11.8 Seconds (9.9-11.8) 01/03/17 12:33 INR 1.09 (0.93-1.08) H 01/03/17 12:33 APTT 30.4 Seconds (23.7-30.8) 01/03/17 12:33 Attending/Attestation - Attestation I have personally seen and examined this patient.: Yes I have fully participated in the care of the patient.: Yes I have reviewed all pertinent clinical information, including history, physical exam and plan: Yes Notes (Text): This is an addendum to GI progress report dictated by Elisa Campbell APN.The patient was seen and examined earlier. Medical records, lab studies, imagings were reviewed. Last 24 hours events reviewed. Agreed with the above treatment plan as outlined in Elisa Campbell APN's notes the with the addition of the following Tolerating a diet no complaints of abdominal pain WBC shows a downward trend Antibiotic coverage widened as per ID Follow-up of the cultures Awaiting for pancreatic surgical input 01/10/17 19:02
--- NOTE | 2017-01-10 14:45 | CP.PCM.CON ---
History of Present Illness - History of Present Illness History of Present Illness: 76 year old male with PMH of DM was brought in to [facility] [place] because of generalized weakness which has been progressing, anorexia, unintentional weight loss and jaundice which progressed over the past [address] scan of the abdomen and pelvis revealed intrahepatic and CBD dilatation and the patient underwent MRCP as well and EUS which revealed pancreatic head mass. a percutaneous biliary drain was also placed. Since then, his WBC count has been increasing and Infectious diseases consult is requested to further evaluate and manage. Currently he denies fever or chills, no nausea or vomiting, no abdominal pain, no diarrhea, no dysuria, no chest pain, no SOB, no cough or rhinorrhea, no headache or dizziness. Review of Systems - Review of Systems All systems: reviewed and no additional remarkable complaints except (as per HPI ) Past Patient History - Infectious Disease Hx of Infectious Diseases: None - Tetanus Immunizations Tetanus Immunization: Unknown - Past Social History Smoking Status: Former Smoker (heavy smoker, quit 2011) - CARDIAC Hx Cardiac Disorders: Yes - PULMONARY Hx Respiratory Disorders: No - NEUROLOGICAL Hx Neurological Disorder: No - HEENT Hx HEENT Problems: No - RENAL Hx Chronic Kidney Disease: No - ENDOCRINE/METABOLIC Hx Diabetes Mellitus Type 1: Yes - HEMATOLOGICAL/ONCOLOGICAL Hx Blood Transfusions: No - INTEGUMENTARY Hx Dermatological Problems: No - MUSCULOSKELETAL/RHEUMATOLOGICAL Hx Musculoskeletal Disorders: No - GASTROINTESTINAL Hx Gastrointestinal Disorders: No - GENITOURINARY/GYNECOLOGICAL Hx Genitourinary Disorders: No - PSYCHIATRIC Hx Psychophysiologic Disorder: No Hx Depression: No Hx Emotional Abuse: No Hx Physical Abuse: No Hx Substance Use: No - SURGICAL HISTORY Hx Surgeries: Yes - ANESTHESIA Hx Anesthesia Reactions: No Hx Malignant Hyperthermia: No Meds Allergies/Adverse Reactions: Allergies Allergy/AdvReac Type Severity Reaction Status Date / Time No Known Allergies Allergy Verified 01/03/17 11:14 - Medications Medications: Current Medications Acetaminophen (Tylenol 325mg Tab) 650 mg PO Q4 PRN PRN Reason: Pain, Mild (1-3) Benzocaine/Menthol (Cepacol Sore Throat) 1 sveta MT BID PRN PRN Reason: Sore Throat Last Admin: 01/08/17 12:10 Dose: 1 sveta Bisacodyl (Dulcolax) 5 mg PO HS PRN PRN Reason: Constipation Docusate Sodium (Colace) 100 mg PO BID [facility] Last Admin: 01/09/17 17:03 Dose: 100 mg Sodium Chloride (Sodium Chloride 0.9%) 1,000 mls @ 100 mls/hr IV .Q10H [facility] Last Admin: 01/10/17 03:10 Dose: 100 mls/hr Piperacillin Sod/Tazobactam Sod (Zosyn 3.375 In Ns 100ml) 100 mls @ 200 mls/hr IVPB Q6 [facility] PRN Reason: Protocol Stop: 01/18/17 18:31 Last Admin: 01/10/17 05:16 Dose: 200 mls/hr Vancomycin HCl (Vancomycin 750 Mg In Ns) 750 mg in 250 mls @ 167 mls/hr IVPB Q12H [facility] PRN Reason: Protocol Stop: 01/18/17 22:01 Last Admin: 01/09/17 21:21 Dose: 167 mls/hr Insulin Human Lispro (Humalog High) 0 units SC ACHS [facility] PRN Reason: Protocol Last Admin: 01/10/17 07:50 Dose: 10 units Ondansetron HCl (Zofran Inj) 4 mg IVP Q6H PRN PRN Reason: Nausea/Vomiting Polyethylene Glycol (Miralax) 17 gm PO DAILY [facility] Last Admin: 01/09/17 10:05 Dose: 17 gm Tramadol HCl (Ultram) 50 mg PO TID PRN PRN Reason: Pain, moderate (4-7) Last Admin: 01/09/17 21:21 Dose: 50 mg Physical Exam - Constitutional Appears: Cachectic, Chronically Ill - Head Exam Head Exam: NORMAL INSPECTION - Eye Exam Eye Exam: Scleral icterus - ENT Exam ENT Exam: Mucous Membranes Moist - Neck Exam Neck exam: Negative for: Meningismus - Respiratory Exam Respiratory Exam: Decreased Breath Sounds - Cardiovascular Exam Cardiovascular Exam: +S1, +S2 - GI/Abdominal Exam GI & Abdominal Exam: Soft. absent: Tenderness Additional comments: abdominal drain in place Results - Vital Signs Recent Vital Signs: Last Vital Signs Temp 98.0 F 01/09/17 06:00 Pulse 76 01/09/17 06:00 Resp 96 H 01/09/17 06:00 BP 91/54 L 01/09/17 06:00 Pulse Ox 19 L 01/09/17 06:00 - Labs Result Diagrams: 01/10/17 10:15 10/15/17 06:30 Labs: Laboratory Results - last 24 hr 01/09/17 01/09/17 01/09/17 11:39 16:12 21:02 POC Glucose (mg/dL) 287 H 303 H 306 H Urine Color Urine Appearance Urine pH Ur Specific [place] Urine Protein Urine Glucose (UA) Urine Ketones Urine Blood Urine Nitrate Urine Bilirubin Urine Urobilinogen Ur Leukocyte Esterase Urine RBC Urine WBC Ur Epithelial Cells Uric Acid Crystals Urine Bacteria 01/09/17 01/10/17 22:40 07:28 POC Glucose (mg/dL) 243 H Urine Color Dark yellow Urine Appearance Sl cloudy Urine pH 5.5 Ur Specific [place] 1.025 Urine Protein Trace H Urine Glucose (UA) 500 H Urine Ketones Negative Urine Blood Negative Urine Nitrate Negative Urine Bilirubin Moderate H Urine Urobilinogen 0.2 Ur Leukocyte Esterase Negative Urine RBC Negative Urine WBC 1 - 3 Ur Epithelial Cells 1 - 3 Uric Acid Crystals Few Urine Bacteria Few Assessment & Plan - Assessment and Plan (Free Text) Plan: Assessment Systemic Inflammatory Response Syndrome, consider due to pancreatic / biliary malignancy R/O sepsis R/O biliary tree infection S/P EUS, percutaneous drain placement DM Plan Follow up blood, urine, abdominal cx - started the patient on Vancomycin and Zosyn Overall prognosis is poor will monitor clinically
[2017-01-11] MEDS: Piperacillin/Tazobact 3.375 gm 100 ML IVPB SCH ×4 (00:05→18:40)
[2017-01-11 07:56] LABS: ALB/GLOB RATIO 0.9 (1.1-1.8); ALKALINE PHOSPHATASE 491 U/L (38-126); ALT/SGPT 80 U/L (7-56); AST/SGOT 39 U/L (17-59); BILIRUBIN,TOTAL 6.4 mg/dL (0.2-1.3); BLOOD UREA NITROGEN 16 mg/dL (7-21); CARBON DIOXIDE 19 mmol/L (21-33); CHLORIDE 108 mmol/L (98-107); GFR AFRICAN-AMERICAN > 60; GLUCOSE,RANDOM 295 mg/dL (70-110); POTASSIUM 4.1 mmol/L (3.6-5.0); SODIUM 134 mmol/L (132-148); TOTAL PROTEIN 4.9 g/dL (5.8-8.3)
[2017-01-11] MEDS: Insulin Lispro (HUMAlog) HIGH Coverage SC SCH ×5 (08:58→21:56)
[2017-01-11] MEDS: POLYETHYLENE GLYCOL 3350 17 GM/Dose PACKET PO SCH (10:02)
[2017-01-11] MEDS: Vancomycin 750mg 750 MG/250 ML BAG IVPB SCH ×2 (10:05→21:40)
[2017-01-11 10:36] LABS: HEMATOCRIT 29.6 % (42.0-52.0); MEAN CELL VOLUME 104.6 fl (80.0-105.0); MEAN CORPUSCULAR HEMOGLOBIN 33.9 pg (25.0-35.0); MEAN CORPUSCULAR HGB CONC 32.4 g/dl (31.0-37.0); MEAN PLATELET VOLUME 11.5 fl (7.0-11.0); RED CELL DISTRIBUTION WIDTH 15.4 % (11.5-14.5); WHITE BLOOD COUNT 15.6 10^3/ul (4.5-11.0)
--- NOTE | 2017-01-11 11:49 | CP.PCM.PN ---
<Ghislaine Hawley - Last Filed: 01/11/17 11:46> Subjective - Date & Time of Evaluation Date of Evaluation: 01/11/17 Time of Evaluation: 11:46 - Subjective Subjective: General Surgery Progress Note for Dr. Sen Patient seen and examined at bedside. Patient resting comfortably in bed with no new complaints at this time. Denies any acute events overnight. He is tolerating diet, passing gas, and having normal BMs. He denies fever, chills, abdominal pain, nausea, vomiting, diarrhea, constipation. Objective - Vital Signs/Intake and Output Vital Signs (last 24 hours): Temp Pulse Resp BP Pulse Ox 97.5 F L 20 L 76 H 101/64 97 01/11/17 08:40 01/11/17 08:40 01/11/17 08:40 01/11/17 08:40 01/11/17 08:40 Intake and Output: 01/11/17 01/11/17 06:59 18:59 Intake Total 660 Balance 660 - Medications Medications: Current Medications Acetaminophen (Tylenol 325mg Tab) 650 mg PO Q4 PRN PRN Reason: Pain, Mild (1-3) Benzocaine/Menthol (Cepacol Sore Throat) 1 sveta MT BID PRN PRN Reason: Sore Throat Last Admin: 01/08/17 12:10 Dose: 1 sveta Bisacodyl (Dulcolax) 5 mg PO HS PRN PRN Reason: Constipation Docusate Sodium (Colace) 100 mg PO BID [facility] Last Admin: 01/11/17 10:03 Dose: 100 mg Sodium Chloride (Sodium Chloride 0.9%) 1,000 mls @ 100 mls/hr IV .Q10H [facility] Last Admin: 01/10/17 17:42 Dose: 100 mls/hr Piperacillin Sod/Tazobactam Sod (Zosyn 3.375 In Ns 100ml) 100 mls @ 200 mls/hr IVPB Q6 [facility] PRN Reason: Protocol Stop: 01/18/17 18:31 Last Admin: 01/11/17 06:13 Dose: 200 mls/hr Vancomycin HCl (Vancomycin 750 Mg In Ns) 750 mg in 250 mls @ 167 mls/hr IVPB Q12H [facility] PRN Reason: Protocol Stop: 01/18/17 22:01 Last Admin: 01/11/17 10:05 Dose: 167 mls/hr Insulin Human Lispro (Humalog High) 0 units SC ACHS [facility] PRN Reason: Protocol Last Admin: 01/11/17 08:59 Dose: 10 units Ondansetron HCl (Zofran Inj) 4 mg IVP Q6H PRN PRN Reason: Nausea/Vomiting Polyethylene Glycol (Miralax) 17 gm PO BID [facility] Polyethylene Glycol (Miralax) 17 gm PO ONCE ONE Stop: 01/11/17 18:01 Tramadol HCl (Ultram) 50 mg PO TID PRN PRN Reason: Pain, moderate (4-7) Last Admin: 01/11/17 10:02 Dose: 50 mg - Labs Labs: 01/11/17 10:30 01/11/17 07:36 PT 11.8 Seconds (9.9-11.8) 01/03/17 12:33 INR 1.09 (0.93-1.08) H 01/03/17 12:33 APTT 30.4 Seconds (23.7-30.8) 01/03/17 12:33 - Constitutional Appears: Non-toxic, No Acute Distress - Head Exam Head Exam: ATRAUMATIC, NORMAL INSPECTION - Eye Exam Eye Exam: EOMI, Scleral icterus - ENT Exam ENT Exam: Mucous Membranes Moist - Respiratory Exam Respiratory Exam: NORMAL BREATHING PATTERN. absent: Accessory Muscle Use, Wheezes, Respiratory Distress - Cardiovascular Exam Cardiovascular Exam: REGULAR RHYTHM. absent: Bradycardia, Tachycardia - GI/Abdominal Exam GI & Abdominal Exam: Soft. 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 No gallstones. MRCP: CBD 2.2cm and abrupt narrowing 0.2cm, pancreatic duct is 1.1cm. EUS: 2cm hypoechoic lesion in pancreatic head. CA 19-9: 10,000+ Ct pancreas protocol: Pancreatic duct is abnormally, diffusely dilated. There is subtle low density in the pancreatic head, which could represent the patient' s known pancreatic neoplasm,No CT evidence of acute pancreatitis. Plan: - f/u repeat CA 19-9 - f/u prealbumin - f/u echo - encouraged increased PO intake - further recs per Dr. Mckinley Hawley, PGY1 <Elisa Campbell - Last Filed: 01/11/17 12:11> Objective - Vital Signs/Intake and Output Vital Signs (last 24 hours): Temp Pulse Resp BP Pulse Ox 97.5 F L 20 L 76 H 101/64 97 01/11/17 08:40 01/11/17 08:40 01/11/17 08:40 01/11/17 08:40 01/11/17 08:40 Intake and Output: 01/11/17 01/11/17 06:59 18:59 Intake Total 660 Balance 660 - Medications Medications: Current Medications Acetaminophen (Tylenol 325mg Tab) 650 mg PO Q4 PRN PRN Reason: Pain, Mild (1-3) Benzocaine/Menthol (Cepacol Sore Throat) 1 sveta MT BID PRN PRN Reason: Sore Throat Last Admin: 01/08/17 12:10 Dose: 1 sveta Bisacodyl (Dulcolax) 5 mg PO HS PRN PRN Reason: Constipation Docusate Sodium (Colace) 100 mg PO BID [facility] Last Admin: 01/11/17 10:03 Dose: 100 mg Sodium Chloride (Sodium Chloride 0.9%) 1,000 mls @ 100 mls/hr IV .Q10H [facility] Last Admin: 01/10/17 17:42 Dose: 100 mls/hr Piperacillin Sod/Tazobactam Sod (Zosyn 3.375 In Ns 100ml) 100 mls @ 200 mls/hr IVPB Q6 [facility] PRN Reason: Protocol Stop: 01/18/17 18:31 Last Admin: 01/11/17 06:13 Dose: 200 mls/hr Vancomycin HCl (Vancomycin 750 Mg In Ns) 750 mg in 250 mls @ 167 mls/hr IVPB Q12H [facility] PRN Reason: Protocol Stop: 01/18/17 22:01 Last Admin: 01/11/17 10:05 Dose: 167 mls/hr Insulin Human Lispro (Humalog High) 0 units SC ACHS [facility] PRN Reason: Protocol Last Admin: 01/11/17 08:59 Dose: 10 units Ondansetron HCl (Zofran Inj) 4 mg IVP Q6H PRN PRN Reason: Nausea/Vomiting Polyethylene Glycol (Miralax) 17 gm PO BID [facility] Polyethylene Glycol (Miralax) 17 gm PO ONCE ONE Stop: 01/11/17 18:01 Tramadol HCl (Ultram) 50 mg PO TID PRN PRN Reason: Pain, moderate (4-7) Last Admin: 01/11/17 10:02 Dose: 50 mg - Labs Labs: 01/11/17 10:30 01/11/17 07:36 PT 11.8 Seconds (9.9-11.8) 01/03/17 12:33 INR 1.09 (0.93-1.08) H 01/03/17 12:33 APTT 30.4 Seconds (23.7-30.8) 01/03/17 12:33
--- NOTE | 2017-01-11 12:16 | CP.PCM.PN ---
<Elisa Campbell - Last Filed: 01/11/17 12:16> Subjective - Date & Time of Evaluation Date of Evaluation: 01/11/17 Time of Evaluation: 10:00 - Subjective Subjective: S&E at bedside and the chart reviewed. no acute overnight events reported. Patient denies nausea, vomiting, or abdominal pain. Complains of some joint pain but no acute distress. Tolerating oral intake. Complains of not having bowel movement for a day and a half. Requesting Dulcolax suppository. Objective - Vital Signs/Intake and Output Vital Signs (last 24 hours): Temp Pulse Resp BP Pulse Ox 97.5 F L 20 L 76 H 101/64 97 01/11/17 08:40 01/11/17 08:40 01/11/17 08:40 01/11/17 08:40 01/11/17 08:40 Intake and Output: 01/11/17 01/11/17 06:59 18:59 Intake Total 660 Balance 660 - Medications Medications: Current Medications Acetaminophen (Tylenol 325mg Tab) 650 mg PO Q4 PRN PRN Reason: Pain, Mild (1-3) Benzocaine/Menthol (Cepacol Sore Throat) 1 sveta MT BID PRN PRN Reason: Sore Throat Last Admin: 01/08/17 12:10 Dose: 1 sveta Bisacodyl (Dulcolax) 5 mg PO HS PRN PRN Reason: Constipation Docusate Sodium (Colace) [address] [facility] Last Admin: 01/11/17 10:03 Dose: 100 mg Sodium Chloride (Sodium Chloride 0.9%) 1,000 mls @ 100 mls/hr IV .Q10H [facility] Last Admin: 01/10/17 17:42 Dose: 100 mls/hr Piperacillin Sod/Tazobactam Sod (Zosyn 3.375 In Ns 100ml) 100 mls @ 200 mls/hr IVPB Q6 [facility] PRN Reason: Protocol Stop: 01/18/17 18:31 Last Admin: 01/11/17 06:13 Dose: 200 mls/hr Vancomycin HCl (Vancomycin 750 Mg In Ns) 750 mg in 250 mls @ 167 mls/hr IVPB Q12H [facility] PRN Reason: Protocol Stop: 01/18/17 22:01 Last Admin: 01/11/17 10:05 Dose: 167 mls/hr Insulin Human Lispro (Humalog High) 0 units SC ACHS [facility] PRN Reason: Protocol Last Admin: 01/11/17 08:59 Dose: 10 units Ondansetron HCl (Zofran Inj) 4 mg IVP Q6H PRN PRN Reason: Nausea/Vomiting Polyethylene Glycol (Miralax) 17 gm PO BID [facility] Tramadol HCl (Ultram) 50 mg PO TID PRN PRN Reason: Pain, moderate (4-7) Last Admin: 01/11/17 10:02 Dose: 50 mg - Labs Labs: 01/10/17 10:15 01/11/17 07:36 PT 11.8 Seconds (9.9-11.8) 01/03/17 12:33 INR 1.09 (0.93-1.08) H 01/03/17 12:33 APTT 30.4 Seconds (23.7-30.8) 01/03/17 12:33 - Constitutional Appears: No Acute Distress - Head Exam Head Exam: NORMOCEPHALIC - Eye Exam Eye Exam: Scleral icterus - ENT Exam ENT Exam: Mucous Membranes Moist - Neck Exam Neck Exam: Normal Inspection - Respiratory Exam Respiratory Exam: NORMAL BREATHING PATTERN. absent: Respiratory Distress - Cardiovascular Exam Cardiovascular Exam: +S1, +S2 - GI/Abdominal Exam GI & Abdominal Exam: Soft, Normal Bowel Sounds. absent: Guarding, Tenderness, Rebound Additional comments: LUQ tube drain bilious fluid, site dry and intact - Extremities Exam Extremities Exam: absent: Calf Tenderness, Pedal Edema - Neurological Exam Neurological Exam: Alert, Awake, Oriented x3 - Skin Skin Exam: Dry, Warm Additional comments: jaundice but improved Assessment and Plan - Assessment and Plan (Free Text) Assessment: Assessment: Leukocytosis Pancreatic head Adenocarcinoma Ampullary lesion is atypical cells Obstructive jaundice, EUS revealed a 2 cm size hypoechoic lesion in the head of the pancreas closer to the ampullary area. s/p biopsies Attempted ERCP, unable to cannulate Status post internal and external biliary drain with dilatation of malignant obstruction Weight loss History of diabetes mellitus Plan: continue diet to low-fat diet FU final bile culture Trend LFTs on IV antibtiotics: Zosyn/Vancomycin give dulcolax SD x1 today, give extra dose of Miralx if noBM on colace and increase Miralax to bid,DC for loose stool, as per oncology/radiation oncology/surgery/ID Seen and discussed with Dr. Bruce.either <Kirk,Kovil V - Last Filed: 01/11/17 20:24> Objective - Vital Signs/Intake and Output Vital Signs (last 24 hours): Temp Pulse Resp BP Pulse Ox 97.8 F 70 18 102/65 97 01/11/17 16:00 01/11/17 16:00 01/11/17 16:00 01/11/17 16:00 01/11/17 16:00 Intake and Output: 01/11/17 01/12/17 18:59 06:59 Intake Total 960 Balance 960 - Medications Medications: Current Medications Acetaminophen (Tylenol 325mg Tab) 650 mg PO Q4 PRN PRN Reason: Pain, Mild (1-3) Benzocaine/Menthol (Cepacol Sore Throat) 1 sveta MT BID PRN PRN Reason: Sore Throat Last Admin: 01/08/17 12:10 Dose: 1 sveta Bisacodyl (Dulcolax) 5 mg PO HS PRN PRN Reason: Constipation Docusate Sodium (Colace) 100 mg PO BID [facility] Last Admin: 01/11/17 18:39 Dose: 100 mg Sodium Chloride (Sodium Chloride 0.9%) 1,000 mls @ 100 mls/hr IV .Q10H [facility] Last Admin: 01/10/17 17:42 Dose: 100 mls/hr Piperacillin Sod/Tazobactam Sod (Zosyn 3.375 In Ns 100ml) 100 mls @ 200 mls/hr IVPB Q6 [facility] PRN Reason: Protocol Stop: 01/18/17 18:31 Last Admin: 01/11/17 18:40 Dose: 200 mls/hr Vancomycin HCl (Vancomycin 750 Mg In Ns) 750 mg in 250 mls @ 167 mls/hr IVPB Q12H [facility] PRN Reason: Protocol Stop: 01/18/17 22:01 Last Admin: 01/11/17 10:05 Dose: 167 mls/hr Insulin Human Lispro (Humalog High) 0 units SC ACHS [facility] PRN Reason: Protocol Last Admin: 01/11/17 18:36 Dose: 10 units Ondansetron HCl (Zofran Inj) 4 mg IVP Q6H PRN PRN Reason: Nausea/Vomiting Polyethylene Glycol (Miralax) 17 gm PO BID [facility] Tramadol HCl (Ultram) 50 mg PO TID PRN PRN Reason: Pain, moderate (4-7) Last Admin: 01/11/17 10:02 Dose: 50 mg - Labs Labs: 01/11/17 10:30 01/11/17 07:36 PT 11.8 Seconds (9.9-11.8) 01/03/17 12:33 INR 1.09 (0.93-1.08) H 01/03/17 12:33 APTT 30.4 Seconds (23.7-30.8) 01/03/17 12:33 Attending/Attestation - Attestation I have personally seen and examined this patient.: Yes I have fully participated in the care of the patient.: Yes I have reviewed all pertinent clinical information, including history, physical exam and plan: Yes Notes (Text): This is an addendum to GI progress report dictated by Elisa Campbell APN.The patient was seen and examined earlier. Medical records, lab studies, imagings were reviewed. Last 24 hours events reviewed. Agreed with the above treatment plan as outlined in Elisa Campbell APN's notes the with the addition of the following Patient appears less jaundiced Abdomen soft nontender biliary drain in place Patient is being evaluated by pancreatic surgeon We'll discuss with the oncologist and also PCP Need internalizing the biliary stent once the decision is made reg the surgical plan 01/11/17 20:21
[2017-01-11 14:56] LABS: CA 19-9 > 5000 U/mL (0-37)
[2017-01-11] MEDS ORDERED: POLYETHYLENE GLYCOL 3350 17 GM/Dose PACKET PO ONE (18:00)
--- NOTE | 2017-01-11 20:53 | CARD ---
APPROVED REPORT EXAM: Two-dimensional and M-mode echocardiogram with Doppler and color Doppler. INDICATION Pre-Op 2D DIMENSIONS Left Atrium (2D)2.6 (1.6-4.0cm)IVSd1.2 (0.7-1.1cm) LVDd3.7 (3.9-5.9cm)PWd1.1 (0.7-1.1cm) LVDs3.1 (2.5-4.0cm)FS (%) 17.8 % LVEF (%)37.8 (>50%) M-Mode DIMENSIONS Aortic Root3.30 (2.2-3.7cm)Aortic Cusp Exc.1.70 (1.5-2.0cm) Aortic Valve AoV Peak Qpbxbrsf507.0cm/Brady Peak GR.6mmHg Mitral Valve MV E Jemeywup96.2cm/sMV A Gtyeyngv98.5cm/sE/A ratio0.8 TDI E/Lateral E'0.0E/Medial E'0.0 Tricuspid Valve TR Peak [id number] [id number] Peak Gr.13mmHg [id number] LEFT VENTRICLE The left ventricle is normal size. There is borderline concentric left ventricular hypertrophy. The systolic function is moderately to severely impaired. Apical Hypokinesis and Paradoxic septum Transmitral Doppler flow pattern is Grade I-abnormal relaxation pattern. RIGHT VENTRICLE The right ventricle is borderline dilated. There is normal right ventricular wall thickness. The right ventricular systolic function is normal. ATRIA The left atrium size is normal. The right atrium size is normal. AORTIC VALVE The aortic valve is mildly thickened. MITRAL VALVE The mitral valve is moderately thickened. TRICUSPID VALVE The tricuspid valve leaflets are thickened There is trace tricuspid regurgitation. GREAT VESSELS The aortic root is normal in size. <Conclusion> The left ventricle is normal size. There is borderline concentric left ventricular hypertrophy. The systolic function is moderately to severely impaired. Apical Hypokinesis and Paradoxic septum Transmitral Doppler flow pattern is Grade I-abnormal relaxation pattern.
[2017-01-11] MEDS: Sodium Chloride 0.9% 1,000 ML IV SCH (21:00)
[2017-01-12] MEDS: Piperacillin/Tazobact 3.375 gm 100 ML IVPB SCH ×3 (00:34→12:35)
--- NOTE | 2017-01-12 02:35 | PN ---
DAILY PROGRESS NOTE DATE: 01/11/2017 The patient was seen in room 375, bed 2, this Tuesday. She went for procedure today for internalization of the external biliary drain. Case was discussed at length with Dr. Bautista . Our plan is to continue decompression of biliary tree until bilirubin returns to normal. He will then be able to receive chemotherapy and after that we reevaluate as a likely surgical candidate. This may be done at home or in a transitional care unit after successful internalization of the drain. The patient's family may also seek additional surgical opinions at a tertiary referral center. This could be done as an outpatient as well. We will decide as times goes by. Rehan Jeff MD
--- NOTE | 2017-01-12 04:38 | PN ---
LOCATION: The patient is in room 375, bed 2. This is a 76-year-old male admitted with progressive weight loss, steatorrhea, and obstructive jaundice, who rapidly underwent workup in the hospital, had a CAT scan of the abdomen and pelvis followed by MRCP, had an EGD, endoscopy and attempted placement of ERCP, diagnostic ultrasound and FNA biopsy of a tumor in the head of the pancreas measuring 2.4 cm with an occluded papilla with ample of water for which the patient could not have internally stent placed. The patient underwent PTC and has an internal-external drainage at this point with a total bilirubin gradually coming down from 10 down to 6.4. The patient had tending white count and is on broad-spectrum antibiotic vancomycin and cephalosporin currently and ID consult has been requested. Clinically, the patient based on the current staging has at least stage II carcinoma of the pancreas with direct involvement of the ampulla and the duodenum making it the patient's borderline resectable at this point in time. The patient has been seen by the surgeon whose recommendations are still awaited, but apparently from my discussion with the family, they made recommendations for the patient after discussing with the resident that may be the patient could be a candidate for 2 or 3 cycles of neoadjuvant chemotherapy once the bilirubin came down followed by attempts to see the patient was a candidate for resection. The patient does not have any obvious findings of involvement of the celiac plexus or any of the local blood vessels or any evidence of adenopathy in the neighborhood of the pancreas based on the MRCP and the CAT scan. SUBJECTIVE: The patient is seen in bed. He denies nausea, vomiting, abdominal pain. Complains of some joint pain, but in no acute distress. Taking oral intake. Had not had a bowel movement, requesting Dulcolax suppositories which has been given to him. PHYSICAL EXAMINATION: GENERAL: The patient is in no acute distress. VITAL SIGNS: T-max is 97.5, respirations are 20, pulse is 76, blood pressure is 101/64, pulse ox is 97%. HEENT: Temporal muscle wasting is noted on examination of the head. Conjunctivae pale. Sclerae anicteric. Pupils are equally reactive to light and accommodation. Examination of the oropharynx shows moist mucous membranes. No oropharyngeal lesions are noted. No ulcerations are noted. NECK: Supple. There is no adenopathy. LUNGS: Clear to percussion and auscultation. HEART: Examination of the heart reveals PMI in the fifth intercostal space inside the midclavicular line. S1 and S2 were normal. No gallop or murmur is heard. ABDOMEN: Soft, nontender. There is no rebound, rigidity or guarding noted. The patient has left upper quadrant tube draining bilious fluid, site is dry and intact. NEUROLOGIC: Higher functions are normal. No focal deficits are noted on neurologic examination. SKIN: Warm and dry, is icteric. Jaundice has improved. MEDICATIONS: The patient's medications were reviewed and they include Tylenol, Cepacol lozenges, Dulcolax, Colace 100 b.i.d. The patient is on IV fluid normal saline 100 mL an hour. He is on piperacillin, Zosyn 3.375 g, normal saline q.6 hours. He is on vancomycin 750 mg q.12 hours. He is on Humalog coverage. He is on Zofran 4 mg q.6 hours p.r.n. for nausea, Miralax 17 g p.o. b.i.d., tramadol 50 mg p.o. t.i.d. p.r.n. for pain which he has not taken any recently. LABORATORY DATA: The patient's white count is 14.3, hemoglobin 9.4, hematocrit 28.9, platelet count is 289,000. Sodium is 134, potassium is 4.1, chloride is 108, CO2 is 19, BUN is 16, creatinine is 0.9. Blood sugar is 295. 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 Obstructive jaundice with EUS revealing a 2 cm hypoechoic lesion at the head of the pancreas close to the ampullary area, status post biopsy which shows adenocarcinoma, status post internal-external drain put in by Dr. Chicho Trujillo who drained the malignant obstruction, weight loss, cachexia, history of diabetes. PLAN: The patient is on a low-fat diet. He is going to be put on also Creon 5000 units 3 times a day which will trend the LFTs. The patient is getting stool softeners at this time. Once the bilirubin comes down to a reasonable level, we have tried on talking about systemic therapy. The patient has been seen by radion/oncology who wants to wait to see what surgeon has to say before any recommendations can be made for radiation. One of the discussions we had with the radiation oncologist was to get concurrent chemoradiation if it was feasible that would not interfere with the surgical path. Choice would be to give the patient 4 weeks of radiation with weekly gemcitabine and then assess the patient for surgery if the planes of surgical resection would not be compromised by the radiation, and no randomized trials, but in my experience, I have seen better outcomes with this approach. The patient has been started on Creon, he is on stool softener. Check his calorie count. We will check the bilirubin. My concern is that on the CAT scan, there were some changes with streaking findings in the kidney which needs to be investigated. I spoke to Dr. Rehan Jeff and told him that consultation with other urology or nephrology would be of some value to make sure we are not missing anything else. The patient has no signs or symptoms of pyelonephritis at this time. Changes that I have seen in the kidney on the right kidney, there are multiple areas of decreased enhancement, better visualized in detailed images, primarily involving the cortex and are triangular wedge shaped, they do not appear to represent cyst, scattered low-density renal lesions most likely representing the cysts are seen. There is no evidence of hydronephrosis. This may have to be addressed by the urologist or aircraft parts assembler. The patient also has pelvic ascites and it could be related to anasarca, hyponatremia and hypoproteinemia as the patient is cachectic. We will follow the patient with you and make appropriate recommendations. The patient is going to be discussed in tumor board as well. I had a long discussion with the patient's family, explained to them all the proposed recommendations and given then copies of the most recent CAT scan and the most recent blood work. Danielle Bautista MD
[2017-01-12] MEDS: Sodium Chloride 0.9% 1,000 ML IV SCH ×2 (05:58→17:03)
[2017-01-12 06:39] LABS: HEMATOCRIT 30.2 % (42.0-52.0); MEAN CELL VOLUME 104.1 fl (80.0-105.0); MEAN CORPUSCULAR HEMOGLOBIN 33.4 pg (25.0-35.0); MEAN CORPUSCULAR HGB CONC 32.1 g/dl (31.0-37.0); MEAN PLATELET VOLUME 11.1 fl (7.0-11.0); RED CELL DISTRIBUTION WIDTH 15.8 % (11.5-14.5); WHITE BLOOD COUNT 13.6 10^3/ul (4.5-11.0)
[2017-01-12 06:42] LABS: ALB/GLOB RATIO 0.9 (1.1-1.8); ALKALINE PHOSPHATASE 438 U/L (38-126); ALT/SGPT 75 U/L (7-56); AST/SGOT 60 U/L (17-59); BILIRUBIN,TOTAL 6.1 mg/dL (0.2-1.3); BLOOD UREA NITROGEN 14 mg/dL (7-21); CARBON DIOXIDE 21 mmol/L (21-33); CHLORIDE 106 mmol/L (98-107); GFR AFRICAN-AMERICAN > 60; POTASSIUM 4.3 mmol/L (3.6-5.0); SODIUM 133 mmol/L (132-148); TOTAL PROTEIN 4.8 g/dL (5.8-8.3)
[2017-01-12 06:51] LABS: GLUCOSE,RANDOM 334 mg/dL (70-110)
[2017-01-12 09:01] VITALS: RESP 20
[2017-01-12] MEDS: Amylase/Lipase/Protease 5,000 U ECC PO SCH ×3 (09:15→16:26)
[2017-01-12] MEDS: Insulin Lispro (HUMAlog) HIGH Coverage SC SCH ×3 (09:15→16:22)
[2017-01-12] MEDS ORDERED: POLYETHYLENE GLYCOL 3350 17 GM/Dose PACKET PO SCH ×2 (10:00)
[2017-01-12] MEDS: Vancomycin 750mg 750 MG/250 ML BAG IVPB SCH (10:38)
[2017-01-12] MEDS ORDERED: Fluconazole IV 200mg/100 ml NS 100 MG in Premixed IV 1 EA IVPB SCH (10:45)
--- NOTE | 2017-01-12 12:40 | CP.PCM.PN ---
<Elisa Campbell - Last Filed: 01/12/17 12:39> Subjective - Date & Time of Evaluation Date of Evaluation: 01/12/17 Time of Evaluation: 10:00 - Subjective Subjective: Seen and examined at bedside earlier today, patient had a bowel movement yesterday around 10 AM, with newly postoperative bleeding, nausea, vomiting or abdominal pain. He is tolerating oral intake. He is requesting again for total Dulcolax suppository for BM. Explained to patient that he is on multiple laxatives. No other complaints. Objective - Vital Signs/Intake and Output Vital Signs (last 24 hours): Temp Pulse Resp BP Pulse Ox 97.5 F L 78 20 99/55 L 100 01/12/17 09:00 01/12/17 09:00 01/12/17 09:00 01/12/17 09:00 01/12/17 09:00 Intake and Output: 01/12/17 01/12/17 06:59 18:59 Intake Total 2400 480 Output Total 400 Balance 2000 480 - Medications Medications: Current Medications Acetaminophen (Tylenol 325mg Tab) 650 mg PO Q4 PRN PRN Reason: Pain, Mild (1-3) Amylase (Pancrease 64405 U-5000 U-42233 U) 5,000 u PO AC [facility] Last Admin: 01/12/17 09:15 Dose: 5,000 u Benzocaine/Menthol (Cepacol Sore Throat) 1 sveta MT BID PRN PRN Reason: Sore Throat Last Admin: 01/08/17 12:10 Dose: 1 sveta Bisacodyl (Dulcolax) 5 mg PO HS PRN PRN Reason: Constipation Docusate Sodium (Colace) 100 mg PO BID [facility] Last Admin: 01/12/17 09:15 Dose: 100 mg Sodium Chloride (Sodium Chloride 0.9%) 1,000 mls @ 100 mls/hr IV .Q10H [facility] Last Admin: 01/12/17 05:58 Dose: 100 mls/hr Piperacillin Sod/Tazobactam Sod (Zosyn 3.375 In Ns 100ml) 100 mls @ 200 mls/hr IVPB Q6 [facility] PRN Reason: Protocol Stop: 01/18/17 18:31 Last Admin: 01/12/17 05:59 Dose: 200 mls/hr Vancomycin HCl (Vancomycin 750 Mg In Ns) 750 mg in 250 mls @ 167 mls/hr IVPB Q12H [facility] PRN Reason: Protocol Stop: 01/18/17 22:01 Last Admin: 01/12/17 10:38 Dose: 167 mls/hr Fluconazole 100 mg/ (Miscellaneous) 50 mls @ 100 mls/hr IVPB DAILY [facility] PRN Reason: Protocol Insulin Human Lispro (Humalog High) 0 units SC ACHS [facility] PRN Reason: Protocol Last Admin: 01/12/17 09:15 Dose: 12 units Ondansetron HCl (Zofran Inj) 4 mg IVP Q6H PRN PRN Reason: Nausea/Vomiting Polyethylene Glycol (Miralax) 17 gm PO BID [facility] Last Admin: 01/12/17 09:15 Dose: 17 gm Tramadol HCl (Ultram) 50 mg PO TID PRN PRN Reason: Pain, moderate (4-7) Last Admin: 01/12/17 09:19 Dose: 50 mg - Labs Labs: 01/12/17 06:00 01/12/17 06:00 PT 11.8 Seconds (9.9-11.8) 01/03/17 12:33 INR 1.09 (0.93-1.08) H 01/03/17 12:33 APTT 30.4 Seconds (23.7-30.8) 01/03/17 12:33 - Constitutional Appears: No Acute Distress, Cachectic - Head Exam Head Exam: NORMOCEPHALIC - Eye Exam Eye Exam: Scleral icterus (improving) - ENT Exam ENT Exam: Mucous Membranes Moist - Neck Exam Neck Exam: Normal Inspection - Respiratory Exam Respiratory Exam: Decreased Breath Sounds, NORMAL BREATHING PATTERN. absent: Rales, Wheezes, Respiratory Distress - Cardiovascular Exam Cardiovascular Exam: +S1, +S2 - GI/Abdominal Exam GI & Abdominal Exam: Soft, Normal Bowel Sounds. absent: Distended, Guarding, Tenderness, Organomegaly, Rebound Additional comments: left upper quadrant biliary drain, positive bilious fluid. - Extremities Exam Extremities Exam: Normal Capillary Refill. absent: Calf Tenderness, Pedal Edema - Neurological Exam Neurological Exam: Alert, Awake, Oriented x3 - Skin Skin Exam: Dry, Warm Assessment and Plan - Assessment and Plan (Free Text) Assessment: Assessment: Leukocytosis Pancreatic head Adenocarcinoma Ampullary lesion is atypical cells Obstructive jaundice, EUS revealed a 2 cm size hypoechoic lesion in the head of the pancreas closer to the ampullary area. s/p biopsies Attempted ERCP, unable to cannulate Status post internal and external biliary drain with dilatation of malignant obstruction Weight loss History of diabetes mellitus Plan: continue diet to low-fat diet FU final bile culture Trend LFTs on IV antibtiotics: Zosyn/Vancomycin continue Colace and MiraLAX twice a day, monitor for loose stools as per oncology/radiation oncology/surgery/ID patient will need internalization of biliary stent, once surgical plans made Seen and discussed with Dr. Bruce <Yomaira Bradley V - Last Filed: 01/12/17 18:51> Objective - Vital Signs/Intake and Output Vital Signs (last 24 hours): Temp Pulse Resp BP Pulse Ox 98.2 F 76 20 89/54 L 99 01/12/17 16:00 01/12/17 16:00 01/12/17 16:00 01/12/17 16:00 01/12/17 16:00 Intake and Output: 01/12/17 01/12/17 06:59 18:59 Intake Total 2400 1320 Output Total 400 300 Balance 2000 1020 - Labs Labs: 01/12/17 06:00 01/12/17 06:00 PT 11.8 Seconds (9.9-11.8) 01/03/17 12:33 INR 1.09 (0.93-1.08) H 01/03/17 12:33 APTT 30.4 Seconds (23.7-30.8) 01/03/17 12:33 Attending/Attestation - Attestation I have personally seen and examined this patient.: Yes I have fully participated in the care of the patient.: Yes I have reviewed all pertinent clinical information, including history, physical exam and plan: Yes Notes (Text): This is an addendum to GI progress report dictated by Elisa Campbell APN.The patient was seen and examined earlier. Medical records, lab studies, imagings were reviewed. Last 24 hours events reviewed. Agreed with the above treatment plan as outlined in Elisa Campbell APN's notes the with the addition of the following Tolerating the diet on examination patient appears less jaundice no abdominal tenderness surgical and oncology note reviewed Would request Dr. Chicho Trujillo for internalizing stent We will discuss with the surgical team and also Dr. Jeff regarding this 01/12/17 18:49
--- NOTE | 2017-01-12 12:47 | CP.PCM.PN ---
Subjective - Date & Time of Evaluation Date of Evaluation: 01/12/17 Time of Evaluation: 11:15 - Subjective Subjective: Comfortable on a chair, not in distress, afebrile. Objective - Vital Signs/Intake and Output Vital Signs (last 24 hours): Temp Pulse Resp BP Pulse Ox 97.5 F L 78 20 99/55 L 100 01/12/17 09:00 01/12/17 09:00 01/12/17 09:00 01/12/17 09:00 01/12/17 09:00 Intake and Output: 01/12/17 01/12/17 06:59 18:59 Intake Total 2400 480 Output Total 400 Balance 2000 480 - Medications Medications: Current Medications Acetaminophen (Tylenol 325mg Tab) 650 mg PO Q4 PRN PRN Reason: Pain, Mild (1-3) Amylase (Pancrease 76951 U-5000 U-92339 U) 5,000 u PO AC [facility] Last Admin: 01/12/17 09:15 Dose: 5,000 u Benzocaine/Menthol (Cepacol Sore Throat) 1 sveta MT BID PRN PRN Reason: Sore Throat Last Admin: 01/08/17 12:10 Dose: 1 sveta Bisacodyl (Dulcolax) 5 mg PO HS PRN PRN Reason: Constipation Docusate Sodium (Colace) 100 mg PO BID [facility] Last Admin: 01/12/17 09:15 Dose: 100 mg Sodium Chloride (Sodium Chloride 0.9%) 1,000 mls @ 100 mls/hr IV .Q10H [facility] Last Admin: 01/12/17 05:58 Dose: 100 mls/hr Piperacillin Sod/Tazobactam Sod (Zosyn 3.375 In Ns 100ml) 100 mls @ 200 mls/hr IVPB Q6 [facility] PRN Reason: Protocol Stop: 01/18/17 18:31 Last Admin: 01/12/17 05:59 Dose: 200 mls/hr Vancomycin HCl (Vancomycin 750 Mg In Ns) 750 mg in 250 mls @ 167 mls/hr IVPB Q12H [facility] PRN Reason: Protocol Stop: 01/18/17 22:01 Last Admin: 01/11/17 21:40 Dose: 167 mls/hr Fluconazole 100 mg/ (Miscellaneous) 50 mls @ 100 mls/hr IVPB DAILY [facility] PRN Reason: Protocol Insulin Human Lispro (Humalog High) 0 units SC ACHS [facility] PRN Reason: Protocol Last Admin: 01/12/17 09:15 Dose: 12 units Ondansetron HCl (Zofran Inj) 4 mg IVP Q6H PRN PRN Reason: Nausea/Vomiting Polyethylene Glycol (Miralax) 17 gm PO BID [facility] Last Admin: 01/12/17 09:15 Dose: 17 gm Tramadol HCl (Ultram) 50 mg PO TID PRN PRN Reason: Pain, moderate (4-7) Last Admin: 01/12/17 09:19 Dose: 50 mg - Labs Labs: 01/12/17 06:00 01/12/17 06:00 PT 11.8 Seconds (9.9-11.8) 01/03/17 12:33 INR 1.09 (0.93-1.08) H 01/03/17 12:33 APTT 30.4 Seconds (23.7-30.8) 01/03/17 12:33 - Constitutional Appears: Non-toxic, Cachectic, Chronically Ill - Head Exam Head Exam: NORMAL INSPECTION - ENT Exam ENT Exam: Mucous Membranes Moist - Neck Exam Neck Exam: absent: Meningismus - Respiratory Exam Respiratory Exam: Decreased Breath Sounds - Cardiovascular Exam Cardiovascular Exam: +S1, +S2 - GI/Abdominal Exam GI & Abdominal Exam: Soft. absent: Tenderness Additional comments: abdominal drain in place Assessment and Plan - Assessment and Plan (Free Text) Plan: Assessment Systemic Inflammatory Response Syndrome, consider due to pancreatic / biliary malignancy R/O sepsis R/O biliary tree infection S/P EUS, percutaneous drain placement DM Plan Follow up blood, urine, abdominal cx - continue Vancomycin and Zosyn and will add Diflucan since there is some yeast in the bile fluid Overall prognosis is poor will continue to monitor clinically
--- NOTE | 2017-01-12 12:58 | CP.PCM.PN ---
Subjective - Date & Time of Evaluation Date of Evaluation: 01/12/17 Time of Evaluation: 12:52 - Subjective Subjective: Hepatobiliary surgery - Dr. Sen Pt S&E NAEO. Pt denies any complaints. He is tolerating small snacks throughout the day. No N/V, F/C, Sob/Cp. Biliary drain in place w/ 400cc/ 24hrs. Objective - Vital Signs/Intake and Output Vital Signs (last 24 hours): Temp Pulse Resp BP Pulse Ox 97.5 F L 78 20 99/55 L 100 01/12/17 09:00 01/12/17 09:00 01/12/17 09:00 01/12/17 09:00 01/12/17 09:00 Intake and Output: 01/12/17 01/12/17 06:59 18:59 Intake Total 2400 480 Output Total 400 Balance 2000 480 - Medications Medications: Current Medications Acetaminophen (Tylenol 325mg Tab) 650 mg PO Q4 PRN PRN Reason: Pain, Mild (1-3) Amylase (Pancrease 97110 U-5000 U-70380 U) 5,000 u PO AC [facility] Last Admin: 01/12/17 09:15 Dose: 5,000 u Benzocaine/Menthol (Cepacol Sore Throat) 1 sveta MT BID PRN PRN Reason: Sore Throat Last Admin: 01/08/17 12:10 Dose: 1 sveta Bisacodyl (Dulcolax) 5 mg PO HS PRN PRN Reason: Constipation Docusate Sodium (Colace) 100 mg PO BID [facility] Last Admin: 01/12/17 09:15 Dose: 100 mg Sodium Chloride (Sodium Chloride 0.9%) 1,000 mls @ 100 mls/hr IV .Q10H [facility] Last Admin: 01/12/17 05:58 Dose: 100 mls/hr Piperacillin Sod/Tazobactam Sod (Zosyn 3.375 In Ns 100ml) 100 mls @ 200 mls/hr IVPB Q6 [facility] PRN Reason: Protocol Stop: 01/18/17 18:31 Last Admin: 01/12/17 12:35 Dose: 200 mls/hr Vancomycin HCl (Vancomycin 750 Mg In Ns) 750 mg in 250 mls @ 167 mls/hr IVPB Q12H [facility] PRN Reason: Protocol Stop: 01/18/17 22:01 Last Admin: 01/12/17 10:38 Dose: 167 mls/hr Fluconazole 100 mg/ (Miscellaneous) 50 mls @ 100 mls/hr IVPB DAILY [facility] PRN Reason: Protocol Last Admin: 01/12/17 12:35 Dose: 100 mls/hr Insulin Human Lispro (Humalog High) 0 units SC ACHS [facility] PRN Reason: Protocol Last Admin: 01/12/17 12:34 Dose: 10 units Ondansetron HCl (Zofran Inj) 4 mg IVP Q6H PRN PRN Reason: Nausea/Vomiting Polyethylene Glycol (Miralax) 17 gm PO BID [facility] Last Admin: 01/12/17 09:15 Dose: 17 gm Tramadol HCl (Ultram) 50 mg PO TID PRN PRN Reason: Pain, moderate (4-7) Last Admin: 01/12/17 09:19 Dose: 50 mg - Labs Labs: 01/12/17 06:00 01/12/17 06:00 PT 11.8 Seconds (9.9-11.8) 01/03/17 12:33 INR 1.09 (0.93-1.08) H 01/03/17 12:33 APTT 30.4 Seconds (23.7-30.8) 01/03/17 12:33 - Constitutional Appears: No Acute Distress - Head Exam Head Exam: ATRAUMATIC, NORMAL INSPECTION, NORMOCEPHALIC - Eye Exam Eye Exam: Scleral icterus - Respiratory Exam Respiratory Exam: NORMAL BREATHING PATTERN. absent: Respiratory Distress - GI/Abdominal Exam GI & Abdominal Exam: Soft. absent: Distended, Guarding, Tenderness, Rebound - Extremities Exam Extremities Exam: absent: Pedal Edema - Neurological Exam Neurological Exam: Alert, Oriented x3 - Skin Skin Exam: Dry, Intact Assessment and Plan - Assessment and Plan (Free Text) Assessment: 76 M with Pancreatic adenoca Plan: - Imaging is suggestive of resectable disease - Rpt Ca 19-9 <5000, trending down and initial elevation may be attributable to biliary obstruction - Prealbumin 12.5, continue supplements and encourage PO intake throughout the day - Echo shows EF 38% with mod-sev systolic dysfunction - Will need Cardiac Evaluation and clearance prior to surgical intervention - Dr. Sen to discuss w/ family regarding possible surgery DW Dr. Mckinley Pineda PGY3
[2017-01-12 17:49] VITALS: BP 89/54; PULSE 76; TEMP 98.2; O2SAT 99
--- NOTE | 2017-01-13 08:47 | PN ---
DATE: 01/12/2017 LOCATION: The patient is in room 375. SUBJECTIVE: The patient was examined at the bedside earlier today. The patient had a bowel movement earlier today. No significant nausea or vomiting. Able to tolerate oral intake, requesting for medications for his constipation. PHYSICAL EXAMINATION: GENERAL: The patient is icteric. The patient is awake, alert and oriented in no acute distress. VITAL SIGNS: T-max is 97.5, pulse is 78, respirations 20, blood pressure is 99/55, pulse ox is 100% on room air. HEENT: Temporal muscle wasting is noted. The patient is icteric. Head is normocephalic and atraumatic. Conjunctivae clear. Sclerae anicteric. Pupils are equally reactive to light and accommodation. Examination of the oropharynx shows revealed no oropharyngeal lesions. LUNGS: Clear to percussion and auscultation. CARDIOVASCULAR: Reveals PMI to be in fifth intercostal space inside the midclavicular line. S1 and S2 are normal. No gallop or murmur is heard. ABDOMEN: Soft, nontender. No rebound, rigidity or guarding is noted. The patient has a left upper quadrant biliary drainage which is draining bilious fluid. Site of the drainage site appears to be clean and the dressing is dry. No rebound, rigidity or guarding is noted. EXTREMITIES: Reveal no cyanosis, clubbing, or edema. NEUROLOGIC: Reveals hand functions are normal. No focal deficits are noted. SKIN: Reveals it to be warm and dry, the patient is icteric. LABORATORY DATA: Labs from today revealed a white count is 13.6, hemoglobin 9.7, hematocrit 30.2, platelet count is 365,000. Sodium is 133, K is 4.3, chloride is 106, CO2 is 21, BUN is 14, creatinine is 0.9. Blood sugar is 334. 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 Leukocytosis, obstructive jaundice with EUS revealing a 2 cm hypoechoic lesion in the head of the pancreas, biopsy of which is confirmatory for adenocarcinoma. Weight loss, cachexia, history of diabetes mellitus. PLAN: The patient is on low fat diet. We started on Creon 5000 units 3 times a day. Follow up on the blood culture. The patient is on broad spectrum antibiotics with vancomycin and Zosyn. The patient is also on stool softeners including MiraLax and Colace. The patient is in the process of being assessed for neoadjuvant therapy followed by surgery, followed by surgical excision alone. CAT scan done recently did not reveal any extension of the tumor beyond the pancreas to involve either the blood vessel, or the lymph nodes, or the celiac plexus. The patient's tumor depth seem to involve and invade the duodenum. Input from the surgeon is still awaited, but as per my discussion with family, thoughts about giving neoadjuvant therapy followed by surgical resection is being entertained. I told the patient and family including the daughter that once decompression takes place, the patient is feeling better, then we can talk about internalization with stent and plan on giving him systemic therapy. Nothing can be done at this point in time till the bilirubin comes down to 2.5, which may take about 2 weeks, at which time we can entertain the possibility of giving the patient chemotherapy with Abraxane and gemcitabine plus/minus andreafski. Routine post-exam instructions have been given to the patient, spoken in great details with Dr. Coyd Jeff, his PMD and brought him up to speak as to what our talks are, how we should approach the patient, and what the outcomes could be. All are in agreement and we tried to put the facts together prior to any surgical intervention at this time. Routine post-exam instructions have been given to the patient. Danielle Bautista MD
--- NOTE | 2017-01-13 19:21 | PN ---
The patient was seen on the floor. There is a periampullary lesion suspicious for malignancy. Reviewed the CAT scan, it seems to be resectable. Discussed with the patient and with who believes it is resectable but should probably wait because of CA19-9 is very high, chemotherapy first followed by resection. The patient is doing better with decompression. I will follow intermittently. Rehan Kyle MD
== END 2017-01-12 18:27 | DRG 405 ==
LOC: ED 10:55 → ERH 13:34 → 3RSO 17:11
PROVIDERS: ADMIT Internal Medicine; ATTEND Internal Medicine
PROC: 0FBG8ZX Excision of Pancreas, Via Natural or Artificial Opening Endoscopic, Diagnostic (ICD-10-PCS; principal; 2017-01-04 15:15)
PROC: 0DJ08ZZ Inspection of Upper Intestinal Tract, Via Natural or Artificial Opening Endoscopic (ICD-10-PCS; 2017-01-04 15:15)
PROC: 0F7 Hepatobiliary System and Pancreas, Dilation (ICD-10-PCS; 2017-01-05)
DX: C25.0 Malignant neoplasm of head of pancreas (principal); K83.1 Obstruction of bile duct; R64 Cachexia; R65.10 Systemic inflammatory response syndrome (SIRS) of non-infectious origin without acute organ dysfunction; E11.65 Type 2 diabetes mellitus with hyperglycemia; I45.2 Bifascicular block; K91.840 Postprocedural hemorrhage of a digestive system organ or structure following a digestive system procedure; F17.200 Nicotine dependence, unspecified, uncomplicated; I25.10 Atherosclerotic heart disease of native coronary artery without angina pectoris; K59.00 Constipation, unspecified; R62.7 Adult failure to thrive; Z79.82 Long term (current) use of aspirin; Z95.1 Presence of aortocoronary bypass graft; Z95.5 Presence of coronary angioplasty implant and graft; M54.5 Low back pain; I25.2 Old myocardial infarction; J02.9 Acute pharyngitis, unspecified

== ENCOUNTER 2017-01-12 17:48 | Inpatient (IN) | payer MEDICARE, OTHER ==
[2017-01-12 18:45] VITALS: BMI 22.8
[2017-01-12] MEDS ORDERED: Pneumococcal 23-Valent Vaccine IM ONE (19:48)
[2017-01-12] MEDS ORDERED: Influenza Vaccine 60 mcg/0.5 mL SYR (4YR UP) IM ONE (19:48)
[2017-01-12] MEDS ORDERED: Benzocaine/Menthol (Cepacol) Lozenge MT PRN (21:07)
[2017-01-12] MEDS ORDERED: Bisacodyl 5mg EC Tab PO PRN (21:09)
[2017-01-12] MEDS: Sodium Chloride 0.9% 1,000 ML IV SCH (22:05)
[2017-01-12] MEDS: Vancomycin 750mg 750 MG/250 ML BAG IVPB SCH (22:05)
[2017-01-12] MEDS: Insulin Lispro (HUMAlog) HIGH Coverage SC SCH (23:05)
[2017-01-13] MEDS: Piperacillin/Tazobact 3.375 gm 100 ML IVPB SCH ×4 (00:13→17:12)
[2017-01-13] MEDS: Insulin Lispro (HUMAlog) HIGH Coverage SC SCH ×4 (06:34→22:23)
--- NOTE | 2017-01-13 07:47 | CP.PCM.PN ---
Subjective - Date & Time of Evaluation Date of Evaluation: 01/13/17 Time of Evaluation: 08:00 - Subjective Subjective: Mr Ibarra is a 76 year old gentleman who we saw when he was on the regular floor for evaluation about his pancreatic cancer. At the time of our consultation, we spoke with the patient and grand-daughter as well as discussed the case with Dr Bautista. We had mentioned that radiation would be indicated if he was borderline resectable, unresectable or medically not cleared for surgery given his disease and/or KPS or comorbidities. From our understanding speaking with the surgeon's resident, he may be a surgical candidate and they are currently discussing surgery with him and his family. Objective - Vital Signs/Intake and Output Vital Signs (last 24 hours): Temp Pulse Resp BP Pulse Ox 98.4 F 65 18 91/54 L 97 01/13/17 06:00 01/13/17 06:00 01/13/17 06:00 01/13/17 06:00 01/13/17 06:00 Intake and Output: 01/13/17 01/13/17 06:59 18:59 Output Total 500 Balance -500 - Medications Medications: Current Medications Acetaminophen (Tylenol 325mg Tab) 650 mg PO Q4H PRN PRN Reason: Pain, Mild (1-3) Amylase (Pancrease 00917 U-5000 U-72481 U) 5,000 u PO AC [facility] Aspirin (Ecotrin) 81 mg PO DAILY [facility] Benzocaine/Menthol (Cepacol Sore Throat) 1 sveta MT BID PRN PRN Reason: Sore Throat Bisacodyl (Dulcolax) 5 mg PO HS PRN PRN Reason: Constipation Docusate Sodium (Colace) 100 mg PO BID [facility] Fluconazole (Diflucan Iv 100 Mg/50 Ml Ns) 50 mls @ 100 mls/hr IVPB DAILY [facility] PRN Reason: Protocol Sodium Chloride (Sodium Chloride 0.9%) 1,000 mls @ 100 mls/hr IV .Q10H [facility] Last Admin: 01/12/17 22:05 Dose: 100 mls/hr Vancomycin HCl (Vancomycin 750 Mg In Ns) 750 mg in 250 mls @ 167 mls/hr IVPB Q12 [facility] PRN Reason: Protocol Last Admin: 01/12/17 22:05 Dose: 167 mls/hr Piperacillin Sod/Tazobactam Sod (Zosyn 3.375 In Ns 100ml) 100 mls @ 200 mls/hr IVPB Q6 [facility] PRN Reason: Protocol Stop: 01/20/17 00:01 Last Admin: 01/13/17 05:09 Dose: 200 mls/hr Insulin Human Lispro (Humalog High) 0 units SC ACHS [facility] PRN Reason: Protocol Last Admin: 01/13/17 06:34 Dose: Not Given Ondansetron HCl (Zofran Inj) 4 mg IVP Q6H PRN PRN Reason: Nausea/Vomiting Polyethylene Glycol (Miralax) 17 gm PO BID [facility] Silver Sulfadiazine (Silvadene 1% 25 Gm) 0 gm TP BID [facility] Tramadol HCl (Ultram) 50 mg PO TID PRN PRN Reason: Pain, moderate (4-7) Last Admin: 01/12/17 22:06 Dose: 50 mg
[2017-01-13 07:52] LABS: BASO # 0.08 K/mm3 (0.0-2.0); BASO % 0.6 % (0.0-3.0); EOS # 0.9 (0.0-0.7); EOS % 7.1 % (1.5-5.0); GRAN # 8.28 (1.4-6.5); GRAN % 64.2 % (50.0-68.0); HEMATOCRIT 26.7 % (42.0-52.0); LYMPH # 2.5 (1.2-3.4); LYMPH % 19.1 % (22.0-35.0); MEAN CELL VOLUME 102.7 fl (80.0-105.0); MEAN CORPUSCULAR HEMOGLOBIN 33.8 pg (25.0-35.0); MEAN PLATELET VOLUME 10.5 fl (7.0-11.0); MONO # 1.2 (0.1-0.6); RED CELL DISTRIBUTION WIDTH 15.4 % (11.5-14.5); WHITE BLOOD COUNT 12.9 10^3/ul (4.5-11.0)
[2017-01-13 08:01] LABS: ALB/GLOB RATIO 0.9 (1.1-1.8); ALKALINE PHOSPHATASE 376 U/L (38-126); ALT/SGPT 73 U/L (7-56); AST/SGOT 44 U/L (17-59); BILIRUBIN,TOTAL 5.2 mg/dL (0.2-1.3); BLOOD UREA NITROGEN 12 mg/dL (7-21); CARBON DIOXIDE 21 mmol/L (21-33); CHLORIDE 109 mmol/L (95-110); GFR AFRICAN-AMERICAN > 60; GLUCOSE,RANDOM 128 mg/dL (70-110); POTASSIUM 3.9 mmol/L (3.6-5.0); SODIUM 135 mmol/L (132-148); TOTAL PROTEIN 4.7 g/dL (5.8-8.3)
[2017-01-13] MEDS: Amylase/Lipase/Protease 5,000 U ECC PO SCH ×3 (08:22→17:11)
[2017-01-13] MEDS: POLYETHYLENE GLYCOL 3350 17 GM/Dose PACKET PO SCH ×2 (09:33→17:12)
[2017-01-13] MEDS: Silver Sulfadiazine 1% Cream (25 gm) TP SCH ×2 (09:34→17:13)
[2017-01-13] MEDS: Vancomycin 750mg 750 MG/250 ML BAG IVPB SCH (10:44)
--- NOTE | 2017-01-13 10:57 | CP.PCM.PN ---
Subjective - Date & Time of Evaluation Date of Evaluation: 01/13/17 Time of Evaluation: 10:52 - Subjective Subjective: Hepatobiliary Surgery - Dr. Sen Pt S&E. SHIRA. Pt transferred to TCU yesterday. He is tolerating small amounts of food throughout the day. Pt denies any complaints. He denies any N/ V, F/C, SOb/Cp. Biliary drain in place draining 500cc/24hrs. Objective - Vital Signs/Intake and Output Vital Signs (last 24 hours): Temp Pulse Resp BP Pulse Ox 98.4 F 65 18 91/54 L 97 01/13/17 06:00 01/13/17 06:00 01/13/17 06:00 01/13/17 06:00 01/13/17 06:00 Intake and Output: 01/13/17 01/13/17 06:59 18:59 Output Total 500 Balance -500 - Medications Medications: Current Medications Acetaminophen (Tylenol 325mg Tab) 650 mg PO Q4H PRN PRN Reason: Pain, Mild (1-3) Amylase (Pancrease 43011 U-5000 U-69233 U) 5,000 u PO AC [facility] Last Admin: 01/13/17 08:22 Dose: 5,000 u Aspirin (Ecotrin) 81 mg PO DAILY [facility] Last Admin: 01/13/17 09:34 Dose: 81 mg Benzocaine/Menthol (Cepacol Sore Throat) 1 sveta MT BID PRN PRN Reason: Sore Throat Bisacodyl (Dulcolax) 5 mg PO HS PRN PRN Reason: Constipation Docusate Sodium (Colace) 100 mg PO BID [facility] Last Admin: 01/13/17 09:33 Dose: 100 mg Fluconazole (Diflucan Iv 100 Mg/50 Ml Ns) 50 mls @ 100 mls/hr IVPB DAILY [facility] PRN Reason: Protocol Sodium Chloride (Sodium Chloride 0.9%) 1,000 mls @ 100 mls/hr IV .Q10H [facility] Last Admin: 01/12/17 22:05 Dose: 100 mls/hr Vancomycin HCl (Vancomycin 750 Mg In Ns) 750 mg in 250 mls @ 167 mls/hr IVPB Q12 [facility] PRN Reason: Protocol Last Admin: 01/13/17 10:44 Dose: 167 mls/hr Piperacillin Sod/Tazobactam Sod (Zosyn 3.375 In Ns 100ml) 100 mls @ 200 mls/hr IVPB Q6 [facility] PRN Reason: Protocol Stop: 01/20/17 00:01 Last Admin: 01/13/17 05:09 Dose: 200 mls/hr Insulin Human Lispro (Humalog High) 0 units SC ACHS [facility] PRN Reason: Protocol Last Admin: 01/13/17 06:34 Dose: Not Given Ondansetron HCl (Zofran Inj) 4 mg IVP Q6H PRN PRN Reason: Nausea/Vomiting Polyethylene Glycol (Miralax) 17 gm PO BID [facility] Last Admin: 01/13/17 09:33 Dose: 17 gm Silver Sulfadiazine (Silvadene 1% 25 Gm) 0 gm TP BID [facility] Last Admin: 01/13/17 09:34 Dose: 25 gm Tramadol HCl (Ultram) 50 mg PO TID PRN PRN Reason: Pain, moderate (4-7) Last Admin: 01/13/17 08:34 Dose: 50 mg - Labs Labs: 01/13/17 07:45 01/13/17 07:45 - Constitutional Appears: No Acute Distress - Head Exam Head Exam: ATRAUMATIC, NORMAL INSPECTION, NORMOCEPHALIC - Eye Exam Eye Exam: Scleral icterus - Respiratory Exam Respiratory Exam: NORMAL BREATHING PATTERN. absent: Respiratory Distress - GI/Abdominal Exam GI & Abdominal Exam: Soft. absent: Distended, Guarding, Tenderness, Rebound Additional comments: biliary drain in place w/ bilious drainage, 500cc/24hrs - Neurological Exam Neurological Exam: Alert, Oriented x3 - Psychiatric Exam Psychiatric exam: Normal Affect, Normal Mood - Skin Skin Exam: Dry, Intact Assessment and Plan - Assessment and Plan (Free Text) Assessment: 76 M with Pancreatic adenoca Plan: - Imaging is suggestive of resectable disease - Rpt Ca 19-9 is trending down and initial elevation may be attributable to biliary obstruction - Continue supplements and encourage PO intake throughout the day - Echo w/ mod-sev systolic dysfunction - Recc Cardiology Consult while in house as pt. will need cardiac risk stratification prior to surgery DW Dr. Mckinley Pineda PGY3
[2017-01-13] MEDS: Fluconazole IV 100mg/50 ml NS 50 ML IVPB SCH (12:26)
[2017-01-13] MEDS: Sodium Chloride 0.9% 1,000 ML IV SCH ×2 (14:00→21:13)
--- NOTE | 2017-01-13 16:00 | CP.PCM.PN ---
<Elisa Campbell - Last Filed: 01/13/17 16:00> Subjective - Date & Time of Evaluation Date of Evaluation: 01/13/17 Time of Evaluation: 10:15 - Subjective Subjective: S&E at bedside in TCU, no new complaints, having regular BM, no overt GI bleeding reported. Tolerating oral intake, Less jaundice. No acute overnight events. Objective - Vital Signs/Intake and Output Vital Signs (last 24 hours): Temp Pulse Resp BP Pulse Ox 98.6 F 67 18 104/60 97 01/13/17 10:57 01/13/17 10:57 01/13/17 10:57 01/13/17 10:57 01/13/17 10:57 Intake and Output: 01/13/17 01/13/17 06:59 18:59 Output Total 500 Balance -500 - Medications Medications: Current Medications Acetaminophen (Tylenol 325mg Tab) 650 mg PO Q4H PRN PRN Reason: Pain, Mild (1-3) Amylase (Pancrease 85649 U-5000 U-48119 U) 5,000 u PO AC [facility] Last Admin: 01/13/17 11:30 Dose: Not Given Aspirin (Ecotrin) 81 mg PO DAILY [facility] Last Admin: 01/13/17 09:34 Dose: 81 mg Benzocaine/Menthol (Cepacol Sore Throat) 1 sveta MT BID PRN PRN Reason: Sore Throat Bisacodyl (Dulcolax) 5 mg PO DAILY PRN PRN Reason: Constipation Docusate Sodium (Colace) 100 mg PO BID [facility] Last Admin: 01/13/17 09:33 Dose: 100 mg Fluconazole (Diflucan Iv 100 Mg/50 Ml Ns) 50 mls @ 100 mls/hr IVPB DAILY [facility] PRN Reason: Protocol Last Admin: 01/13/17 12:26 Dose: 100 mls/hr Sodium Chloride (Sodium Chloride 0.9%) 1,000 mls @ 100 mls/hr IV .Q10H [facility] Last Admin: 01/13/17 14:00 Dose: 100 mls/hr Vancomycin HCl (Vancomycin 750 Mg In Ns) 750 mg in 250 mls @ 167 mls/hr IVPB Q12 [facility] PRN Reason: Protocol Last Admin: 01/13/17 10:44 Dose: 167 mls/hr Piperacillin Sod/Tazobactam Sod (Zosyn 3.375 In Ns 100ml) 100 mls @ 200 mls/hr IVPB Q6 [facility] PRN Reason: Protocol Stop: 01/20/17 00:01 Last Admin: 01/13/17 12:26 Dose: 200 mls/hr Insulin Human Lispro (Humalog High) 0 units SC ACHS [facility] PRN Reason: Protocol Last Admin: 01/13/17 11:38 Dose: 7 units Ondansetron HCl (Zofran Inj) 4 mg IVP Q6H PRN PRN Reason: Nausea/Vomiting Polyethylene Glycol (Miralax) 17 gm PO BID [facility] Last Admin: 01/13/17 09:33 Dose: 17 gm Silver Sulfadiazine (Silvadene 1% 25 Gm) 0 gm TP BID [facility] Last Admin: 01/13/17 09:34 Dose: 25 gm Tramadol HCl (Ultram) 50 mg PO TID PRN PRN Reason: Pain, moderate (4-7) Last Admin: 01/13/17 08:34 Dose: 50 mg - Labs Labs: 01/13/17 07:45 01/13/17 07:45 - Constitutional Appears: No Acute Distress - Head Exam Head Exam: NORMOCEPHALIC - Eye Exam Eye Exam: PERRL - ENT Exam ENT Exam: Mucous Membranes Moist - Neck Exam Neck Exam: Normal Inspection - Respiratory Exam Respiratory Exam: Decreased Breath Sounds, NORMAL BREATHING PATTERN. absent: Rales, Wheezes, Respiratory Distress - Cardiovascular Exam Cardiovascular Exam: +S1, +S2 - GI/Abdominal Exam GI & Abdominal Exam: Soft, Normal Bowel Sounds. absent: Guarding, Tenderness, Rebound Additional comments: left quad drain in place and intact. insertion side, o discharge or eyrethema. - Extremities Exam Extremities Exam: Normal Capillary Refill. absent: Calf Tenderness, Pedal Edema - Neurological Exam Neurological Exam: Alert, Awake, Oriented x3 - Skin Skin Exam: Dry, Warm Additional comments: improving jaundice Assessment and Plan - Assessment and Plan (Free Text) Assessment: Assessment: Leukocytosis Pancreatic head Adenocarcinoma Ampullary lesion is atypical cells Obstructive jaundice, EUS revealed a 2 cm size hypoechoic lesion in the head of the pancreas closer to the ampullary area. s/p biopsies Attempted ERCP, unable to cannulate Status post internal and external biliary drain with dilatation of malignant obstruction Weight loss History of diabetes mellitus Plan: continue diet to low-fat diet FU final bile culture, prelim (+) yeast species Trend LFTs on IV antibtiotics: Zosyn/Vancomycin continue Colace and MiraLAX twice a day, monitor for loose stools as per oncology/radiation oncology/surgery/ID patient will need internalization of biliary stent, once surgical plans made Seen and discussed with Dr. Messina <Yomaira Bradley V - Last Filed: 01/13/17 20:39> Objective - Vital Signs/Intake and Output Vital Signs (last 24 hours): Temp Pulse Resp BP Pulse Ox 98.6 F 67 18 104/60 97 01/13/17 10:57 01/13/17 10:57 01/13/17 10:57 01/13/17 10:57 01/13/17 10:57 - Medications Medications: Current Medications Acetaminophen (Tylenol 325mg Tab) 650 mg PO Q4H PRN PRN Reason: Pain, Mild (1-3) Amylase (Pancrease 00816 U-5000 U-60359 U) 5,000 u PO AC [facility] Last Admin: 01/13/17 17:11 Dose: 5,000 u Aspirin (Ecotrin) 81 mg PO DAILY [facility] Last Admin: 01/13/17 09:34 Dose: 81 mg Benzocaine/Menthol (Cepacol Sore Throat) 1 sveta MT BID PRN PRN Reason: Sore Throat Bisacodyl (Dulcolax) 5 mg PO DAILY PRN PRN Reason: Constipation Docusate Sodium (Colace) 100 mg PO BID [facility] Last Admin: 01/13/17 17:12 Dose: 100 mg Fluconazole (Diflucan Iv 100 Mg/50 Ml Ns) 50 mls @ 100 mls/hr IVPB DAILY [facility] PRN Reason: Protocol Last Admin: 01/13/17 12:26 Dose: 100 mls/hr Sodium Chloride (Sodium Chloride 0.9%) 1,000 mls @ 100 mls/hr IV .Q10H [facility] Last Admin: 01/13/17 14:00 Dose: 100 mls/hr Piperacillin Sod/Tazobactam Sod (Zosyn 3.375 In Ns 100ml) 100 mls @ 200 mls/hr IVPB Q6 [facility] PRN Reason: Protocol Stop: 01/20/17 00:01 Last Admin: 01/13/17 17:12 Dose: 200 mls/hr Insulin Human Lispro (Humalog High) 0 units SC ACHS [facility] PRN Reason: Protocol Last Admin: 01/13/17 17:56 Dose: 15 units Ondansetron HCl (Zofran Inj) 4 mg IVP Q6H PRN PRN Reason: Nausea/Vomiting Polyethylene Glycol (Miralax) 17 gm PO BID [facility] Last Admin: 01/13/17 17:12 Dose: 17 gm Silver Sulfadiazine (Silvadene 1% 25 Gm) 0 gm TP BID [facility] Last Admin: 01/13/17 17:13 Dose: 25 gm Tramadol HCl (Ultram) 50 mg PO TID PRN PRN Reason: Pain, moderate (4-7) Last Admin: 01/13/17 08:34 Dose: 50 mg - Labs Labs: 01/13/17 07:45 01/13/17 07:45 Attending/Attestation - Attestation I have personally seen and examined this patient.: Yes I have fully participated in the care of the patient.: Yes I have reviewed all pertinent clinical information, including history, physical exam and plan: Yes Notes (Text): This is an addendum to GI progress report dictated by Elisa Campbell APN.The patient was seen and examined earlier. Medical records, lab studies, imagings were reviewed. Last 24 hours events reviewed. Agreed with the above treatment plan as outlined in Elisa Campbell APN's notes the with the addition of the following Patient appears less jaundiced Abdomen soft no tenderness drain in place LFTs shows downward trend surgical note reviewed We will discuss the with the and surgical team before requesting interventional radiologist regarding internalizing stent 01/13/17 20:35 01/13/17 20:37
--- NOTE | 2017-01-13 19:52 | CP.PCM.CON ---
History of Present Illness - History of Present Illness History of Present Illness: 6 year old male with PMH of DM initially was admitted in [facility] because of generalized weakness, jaundice and weight loss revealed that he has a pancreatic head mass, suspicious for malignancy. Percutaneous biliary drainage was placed and patient was doing well but his WBC count kept going up. He has been on broad spectrum antibiotics and the bile fluid is also growing yeast and is also on Diflucan. He is now transferred to [facility] for continued medical therapy and physical rehab. Infectious Diseases consult is requested to further evaluate and manage. Currently the patient is comfortable in bed, no fever or chills, no nausea or vomiting, no abdominal pain, no chest pain, no SOB , no cough or rhinorrhea, no headache or dizziness, no diarrhea, no dysuria. Review of Systems - Review of Systems All systems: reviewed and no additional remarkable complaints except (as per HPI ) Past Patient History - Infectious Disease Hx of Infectious Diseases: None - Tetanus Immunizations Tetanus Immunization: Unknown - Past Social History Smoking Status: Former Smoker (heavy smoker, quit 2011) - CARDIAC Hx Cardiac Disorders: Yes - PULMONARY Hx Respiratory Disorders: No - NEUROLOGICAL Hx Neurological Disorder: No - HEENT Hx HEENT Problems: No - RENAL Hx Chronic Kidney Disease: No - ENDOCRINE/METABOLIC Hx Diabetes Mellitus Type 1: Yes - HEMATOLOGICAL/ONCOLOGICAL Hx Blood Transfusions: No - INTEGUMENTARY Hx Dermatological Problems: No - MUSCULOSKELETAL/RHEUMATOLOGICAL Hx Falls: No - GASTROINTESTINAL Hx Gastrointestinal Disorders: No - GENITOURINARY/GYNECOLOGICAL Hx Reproductive Disorders: No - PSYCHIATRIC Hx Psychophysiologic Disorder: No Hx Depression: No Hx Emotional Abuse: No Hx Physical Abuse: No Hx Substance Use: No - SURGICAL HISTORY Hx Surgeries: Yes - ANESTHESIA Hx Anesthesia Reactions: No Hx Malignant Hyperthermia: No Meds Allergies/Adverse Reactions: Allergies Allergy/AdvReac Type Severity Reaction Status Date / Time No Known Allergies Allergy Verified 01/03/17 11:14 - Medications Medications: Current Medications Acetaminophen (Tylenol 325mg Tab) 650 mg PO Q4H PRN PRN Reason: Pain, Mild (1-3) Amylase (Pancrease 78002 U-5000 U-31696 U) 5,000 u PO AC [facility] Aspirin (Ecotrin) 81 mg PO DAILY [facility] Benzocaine/Menthol (Cepacol Sore Throat) 1 sveta MT BID PRN PRN Reason: Sore Throat Bisacodyl (Dulcolax) 5 mg PO HS PRN PRN Reason: Constipation Docusate Sodium (Colace) 100 mg PO BID [facility] Fluconazole (Diflucan Iv 100 Mg/50 Ml Ns) 50 mls @ 100 mls/hr IVPB DAILY [facility] PRN Reason: Protocol Sodium Chloride (Sodium Chloride 0.9%) 1,000 mls @ 100 mls/hr IV .Q10H [facility] Last Admin: 01/12/17 22:05 Dose: 100 mls/hr Vancomycin HCl (Vancomycin 750 Mg In Ns) 750 mg in 250 mls @ 167 mls/hr IVPB Q12 [facility] PRN Reason: Protocol Last Admin: 01/12/17 22:05 Dose: 167 mls/hr Piperacillin Sod/Tazobactam Sod (Zosyn 3.375 In Ns 100ml) 100 mls @ 200 mls/hr IVPB Q6 [facility] PRN Reason: Protocol Stop: 01/20/17 00:01 Insulin Human Lispro (Humalog High) 0 units SC ACHS [facility] PRN Reason: Protocol Ondansetron HCl (Zofran Inj) 4 mg IVP Q6H PRN PRN Reason: Nausea/Vomiting Polyethylene Glycol (Miralax) 17 gm PO BID [facility] Silver Sulfadiazine (Silvadene 1% 25 Gm) 0 gm TP BID [facility] Tramadol HCl (Ultram) 50 mg PO TID PRN PRN Reason: Pain, moderate (4-7) Last Admin: 01/12/17 22:06 Dose: 50 mg Physical Exam - Constitutional Appears: Non-toxic, No Acute Distress, Cachectic, Chronically Ill - Head Exam Head Exam: NORMAL INSPECTION - ENT Exam ENT Exam: Mucous Membranes Moist - Neck Exam Neck exam: Negative for: Meningismus - Respiratory Exam Respiratory Exam: Decreased Breath Sounds - Cardiovascular Exam Cardiovascular Exam: +S1, +S2 - GI/Abdominal Exam GI & Abdominal Exam: Soft. absent: Tenderness Additional comments: abdominal drain in place, with bilous fluid Results - Vital Signs Recent Vital Signs: Last Vital Signs Temp 98.4 F 01/12/17 18:52 Pulse 77 01/12/17 18:52 Resp 18 01/12/17 18:52 BP 121/61 01/12/17 18:52 Pulse Ox - Labs Result Diagrams: 01/13/17 07:45 01/13/17 07:45 Assessment & Plan - Assessment and Plan (Free Text) Plan: Assessment Systemic Inflammatory Response Syndrome, consider due to pancreatic / biliary malignancy R/O sepsis R/O biliary tree infection S/P EUS and percutaneous drain placement DM Plan continue Zosyn and Diflucan pending identification of the yeast in the bile fluid Overall prognosis is poor will continue to monitor clinically
--- NOTE | 2017-01-14 01:20 | PN ---
DATE: 01/13/2017 Today, Jemal was seen at the Transitional Care Unit having transferred over just yesterday. He is in room 316, bed 1. He had been oriented to the unit and the goals, which include significant weight gain, following the stent having been internalized and watching his bilirubin come down. The plan from the Oncology Service was to consider chemo and then surgery. Dr. Quang Jeff spoke to the surgical subspecialist yesterday who even offered possibility of performing surgery prior to chemo as this may be resectable. The family is well informed and seems to have done quite a bit of research and had been asking as recently as yesterday about additional opinions, which will be ultimately the decision of the patient and family. We will continue physical therapy and rehab, nutritional supplementation and TCU. Rehan Jeff MD
[2017-01-14] MEDS: Piperacillin/Tazobact 3.375 gm 100 ML IVPB SCH ×4 (02:21→18:54)
[2017-01-14] MEDS: Insulin Lispro (HUMAlog) HIGH Coverage SC SCH ×4 (06:55→22:04)
--- NOTE | 2017-01-14 09:21 | CP.PCM.PN ---
Subjective - Date & Time of Evaluation Date of Evaluation: 01/14/17 Time of Evaluation: 07:30 - Subjective Subjective: Hepatobiliary Surgery Note for Dr. Sen Patient seen and examined at bedside. No acute event overnight. He is tolerating diet and eating throughout the day. Biliary drain is in place with minimal output overnight. He has no complaints today. Objective - Vital Signs/Intake and Output Vital Signs (last 24 hours): Temp Pulse Resp BP Pulse Ox 97.8 F 70 16 103/63 98 01/14/17 06:00 01/14/17 06:00 01/14/17 06:00 01/14/17 06:00 01/14/17 06:00 Intake and Output: 01/14/17 01/14/17 06:59 18:59 Intake Total 620 Output Total 1250 Balance -630 - Medications Medications: Current Medications Acetaminophen (Tylenol 325mg Tab) 650 mg PO Q4H PRN PRN Reason: Pain, Mild (1-3) Amylase (Pancrease 78291 U-5000 U-24900 U) 5,000 u PO AC [facility] Last Admin: 01/13/17 17:11 Dose: 5,000 u Aspirin (Ecotrin) 81 mg PO DAILY [facility] Last Admin: 01/13/17 09:34 Dose: 81 mg Benzocaine/Menthol (Cepacol Sore Throat) 1 sveta MT BID PRN PRN Reason: Sore Throat Bisacodyl (Dulcolax) 5 mg PO DAILY PRN PRN Reason: Constipation Docusate Sodium (Colace) 100 mg PO BID [facility] Last Admin: 01/13/17 17:12 Dose: 100 mg Fluconazole (Diflucan Iv 100 Mg/50 Ml Ns) 50 mls @ 100 mls/hr IVPB DAILY [facility] PRN Reason: Protocol Last Admin: 01/13/17 12:26 Dose: 100 mls/hr Sodium Chloride (Sodium Chloride 0.9%) 1,000 mls @ 100 mls/hr IV .Q10H [facility] Last Admin: 01/13/17 21:13 Dose: 100 mls/hr Piperacillin Sod/Tazobactam Sod (Zosyn 3.375 In Ns 100ml) 100 mls @ 200 mls/hr IVPB Q6 [facility] PRN Reason: Protocol Stop: 01/20/17 00:01 Last Admin: 01/14/17 05:39 Dose: 200 mls/hr Insulin Human Lispro (Humalog High) 0 units SC ACHS [facility] PRN Reason: Protocol Last Admin: 01/14/17 06:55 Dose: 4 units Ondansetron HCl (Zofran Inj) 4 mg IVP Q6H PRN PRN Reason: Nausea/Vomiting Polyethylene Glycol (Miralax) 17 gm PO BID [facility] Last Admin: 01/13/17 17:12 Dose: 17 gm Silver Sulfadiazine (Silvadene 1% 25 Gm) 0 gm TP BID [facility] Last Admin: 01/13/17 17:13 Dose: 25 gm Tramadol HCl (Ultram) 50 mg PO TID PRN PRN Reason: Pain, moderate (4-7) Last Admin: 01/13/17 21:15 Dose: 50 mg - Labs Labs: 01/13/17 07:45 01/13/17 07:45 - Constitutional Appears: No Acute Distress - Head Exam Head Exam: ATRAUMATIC, NORMOCEPHALIC - Eye Exam Eye Exam: EOMI, Normal appearance Pupil Exam: PERRL - ENT Exam ENT Exam: Mucous Membranes Moist - Neck Exam Neck Exam: Full ROM - Respiratory Exam Respiratory Exam: NORMAL BREATHING PATTERN - Cardiovascular Exam Cardiovascular Exam: REGULAR RHYTHM - GI/Abdominal Exam GI & Abdominal Exam: Soft. absent: Distended, Firm, Guarding, Tenderness Additional comments: biliary drain is in place with minimal output overnight - Neurological Exam Neurological Exam: Alert, Awake - Psychiatric Exam Psychiatric exam: Normal Affect, Normal Mood - Skin Skin Exam: Dry, Intact, Warm Additional comments: jaundice continues to improve Assessment and Plan - Assessment and Plan (Free Text) Plan: 76 M with Pancreatic adenocarcinoma - Continue supplements and encourage oral intake continuously throughout the day - Neoadjuvent Chemotherapy will be down prior to any surgical intervention - Follow up as outpatient with Dr. Sen upon discharge - Will speak to primary and Dr. Trujillo about possible stent replacement and port insertion - Will discuss with Dr. Mckinley Decker PGY1
[2017-01-14] MEDS: Amylase/Lipase/Protease 5,000 U ECC PO SCH ×3 (09:43→18:53)
[2017-01-14] MEDS: POLYETHYLENE GLYCOL 3350 17 GM/Dose PACKET PO SCH ×2 (09:43→18:51)
--- NOTE | 2017-01-14 11:11 | PN ---
DATE: 01/14/2017 SUBJECTIVE: The patient is in bed, in no acute distress. OBJECTIVE: VITAL SIGNS: On exam, temperature is 98, blood pressure is 104/60 and respiratory rate 16. EXAMINATION OF HEENT: Unremarkable. NECK: Supple. LUNGS: Decreased breath sounds. HEART EXAM: Normal S1 and S2. ABDOMINAL EXAMINATION: Soft. LABORATORY EXAMINATION: Reveals the white count to be 12,900; hemoglobin of 8 and platelets of 337. Chemistries are noted and microbiology is reviewed. ASSESSMENT AND PLAN: A 76-year-old male, seen earlier today in room #316 with a past medical history of diabetes mellitus and admitted with systemic inflammatory response syndrome, pancreatic-biliary malignancy and sepsis, rule out biliary tree, status post EUS and percutaneous drain placement, on Zosyn and Diflucan. We will follow with you. Jose David Gracia MD
[2017-01-14] MEDS: Fluconazole IV 100mg/50 ml NS 50 ML IVPB SCH (11:12)
--- NOTE | 2017-01-14 11:34 | CP.PCM.PN ---
Subjective - Date & Time of Evaluation Date of Evaluation: 01/14/17 Time of Evaluation: 11:31 - Subjective Subjective: Heme/Onc progress note for Dr. Bautista's service Patient seen and examined at bedside this morning. No acute overnight events or new complaints reported. Jaundice continues to improve. Biliary drain in place with good output. Discussed with patient that no chemotherapy to be started prior to total bilirubin dropping below 2.5. Denies chest pain, palpitations, SOB. Objective - Vital Signs/Intake and Output Vital Signs (last 24 hours): Temp Pulse Resp BP Pulse Ox 97.8 F 70 16 103/63 98 01/14/17 06:00 01/14/17 06:00 01/14/17 06:00 01/14/17 06:00 01/14/17 06:00 Intake and Output: 01/14/17 01/14/17 06:59 18:59 Intake Total 620 Output Total 1250 Balance -630 - Medications Medications: Current Medications Acetaminophen (Tylenol 325mg Tab) 650 mg PO Q4H PRN PRN Reason: Pain, Mild (1-3) Amylase (Pancrease 62927 U-5000 U-19882 U) 5,000 u PO AC [facility] Last Admin: 01/14/17 09:43 Dose: 5,000 u Aspirin (Ecotrin) 81 mg PO DAILY [facility] Last Admin: 01/14/17 09:43 Dose: 81 mg Benzocaine/Menthol (Cepacol Sore Throat) 1 sveta MT BID PRN PRN Reason: Sore Throat Bisacodyl (Dulcolax) 5 mg PO DAILY PRN PRN Reason: Constipation Docusate Sodium (Colace) 100 mg PO BID [facility] Last Admin: 01/14/17 09:42 Dose: 100 mg Fluconazole (Diflucan Iv 100 Mg/50 Ml Ns) 50 mls @ 100 mls/hr IVPB DAILY [facility] PRN Reason: Protocol Last Admin: 01/14/17 11:12 Dose: 100 mls/hr Sodium Chloride (Sodium Chloride 0.9%) 1,000 mls @ 100 mls/hr IV .Q10H [facility] Last Admin: 01/13/17 21:13 Dose: 100 mls/hr Piperacillin Sod/Tazobactam Sod (Zosyn 3.375 In Ns 100ml) 100 mls @ 200 mls/hr IVPB Q6 [facility] PRN Reason: Protocol Stop: 01/20/17 00:01 Last Admin: 01/14/17 05:39 Dose: 200 mls/hr Insulin Human Lispro (Humalog High) 0 units SC ACHS [facility] PRN Reason: Protocol Last Admin: 01/14/17 06:55 Dose: 4 units Ondansetron HCl (Zofran Inj) 4 mg IVP Q6H PRN PRN Reason: Nausea/Vomiting Polyethylene Glycol (Miralax) 17 gm PO BID [facility] Last Admin: 01/14/17 09:43 Dose: 17 gm Silver Sulfadiazine (Silvadene 1% 25 Gm) 0 gm TP BID [facility] Last Admin: 01/13/17 17:13 Dose: 25 gm Tramadol HCl (Ultram) 50 mg PO TID PRN PRN Reason: Pain, moderate (4-7) Last Admin: 01/14/17 09:48 Dose: 50 mg - Labs Labs: 01/13/17 07:45 01/13/17 07:45 - Constitutional Appears: No Acute Distress, Cachectic - Head Exam Head Exam: ATRAUMATIC, NORMAL INSPECTION, NORMOCEPHALIC - Eye Exam Eye Exam: EOMI, PERRL, Scleral icterus - Respiratory Exam Respiratory Exam: absent: Rales, Rhonchi, Wheezes - Cardiovascular Exam Cardiovascular Exam: +S1, +S2. absent: Gallop, JVD, Rubs - GI/Abdominal Exam GI & Abdominal Exam: Soft. absent: Distended, Firm, Guarding, Rigid, Tenderness , Rebound - Neurological Exam Neurological Exam: Alert, Awake, Oriented x3 - Psychiatric Exam Psychiatric exam: Normal Affect, Normal Mood - Skin Skin Exam: Dry, Intact, Normal Color, Warm Assessment and Plan - Assessment and Plan (Free Text) Plan: 76yo male w/ history of DM type 2 presents with painless jaundice, weight loss and weakness discovered to have a 2cm pancreatic head mass 1. Pancreatic adenocarcinoma 2. Obstructive jaundice 3. Diabetes mellitus type 2 4. Failure to thrive -Pathology results reviewed; Consistent with pancreatic adenocarcinoma with invasion into the ampulla -Underwent PTC by IR with internal and external biliary stent placement; -Pancreatic protocol imaging reviewed; refer to official report -Currently patient is a T2-T3/Stage IIa-IIb based on size of mass and no apparent metastasis at this time -Awaiting downtrending of bilirubin below 2.5 prior to initiation of chemotherapy -In the meantime, continue conservative medical management; fluids; pain management -continue to Optimize bowel regimen (given rectal suppository; and then prn enemia if necessary) -Recommend outpatient follow up with Dr. Bautista upon discharge -Radiation oncology consulted - Dr. Paz -Surgery consulted Patient seen and case discussed with attending, Dr. Bautista
[2017-01-14] MEDS: Silver Sulfadiazine 1% Cream (25 gm) TP SCH ×2 (14:54→18:53)
--- NOTE | 2017-01-15 04:10 | PN ---
DATE: 01/14/2017 SUBJECTIVE: The patient was seen this Tuesday evening in room #316, bed 1 with his daughter at the bedside along with who I believed to be his son. The patient was awake, alert and in good spirit, happy to be eating with a voracious appetite. T-tube is in place draining bile. Jaundice and icterus has been improving. I spoke with patient's daughter and patient at length. They were both very pleased with meeting the surgeon and are in agreement with considering a Whipple procedure at [facility] as a Tertiary referral [place] for such an advance procedure. They have a question and that the oncologist also recommended chemotherapy prior to surgery, which differs a little bit from the opinion of the surgeon who opts for surgery before chemo. I will need to sort this out, talking to both of my consulting subspecialists, and giving the family a clear choice of options. Rehan Jeff MD MTDDani
[2017-01-15] MEDS: Piperacillin/Tazobact 3.375 gm 100 ML IVPB SCH ×5 (05:48→23:52)
[2017-01-15] MEDS: Amylase/Lipase/Protease 5,000 U ECC PO SCH ×3 (07:55→17:04)
[2017-01-15 08:14] LABS: BASO # 0.11 K/mm3 (0.0-2.0); BASO % 0.9 % (0.0-3.0); EOS # 0.8 (0.0-0.7); EOS % 6.6 % (1.5-5.0); GRAN # 9.51 (1.4-6.5); GRAN % 74.2 % (50.0-68.0); HEMATOCRIT 29.7 % (42.0-52.0); LYMPH # 1.8 (1.2-3.4); MEAN CELL VOLUME 102.8 fl (80.0-105.0); MEAN CORPUSCULAR HEMOGLOBIN 34.3 pg (25.0-35.0); MEAN CORPUSCULAR HGB CONC 33.3 g/dl (31.0-37.0); MEAN PLATELET VOLUME 10.7 fl (7.0-11.0); MONO # 0.6 (0.1-0.6); MONO % 4.3 % (1.0-6.0); RED CELL DISTRIBUTION WIDTH 16.1 % (11.5-14.5); WHITE BLOOD COUNT 12.8 10^3/ul (4.5-11.0)
[2017-01-15 08:37] LABS: ALKALINE PHOSPHATASE 401 U/L (38-126); ALT/SGPT 68 U/L (7-56); AST/SGOT 42 U/L (17-59); BILIRUBIN,TOTAL 5.2 mg/dL (0.2-1.3); BLOOD UREA NITROGEN 13 mg/dL (7-21); CALCIUM 8.5 mg/dL (8.4-10.5); CARBON DIOXIDE 25 mmol/L (21-33); CHLORIDE 103 mmol/L (98-107); GFR AFRICAN-AMERICAN > 60; GLUCOSE,RANDOM 221 mg/dL (70-110); POTASSIUM 4.5 mmol/L (3.6-5.0); SODIUM 134 mmol/L (132-148); TOTAL PROTEIN 5.6 g/dL (5.8-8.3)
[2017-01-15] MEDS: Insulin Lispro (HUMAlog) HIGH Coverage SC SCH ×4 (09:00→22:16)
--- NOTE | 2017-01-15 09:43 | CP.PCM.PN ---
Subjective - Date & Time of Evaluation Date of Evaluation: 01/15/17 Time of Evaluation: 09:40 - Subjective Subjective: Surgery Pt seen. Resting comfortably. NAEON. Objective - Vital Signs/Intake and Output Vital Signs (last 24 hours): Temp Pulse Resp BP Pulse Ox 97.4 F L 68 18 125/73 98 01/15/17 06:00 01/15/17 06:00 01/15/17 06:00 01/15/17 06:00 01/15/17 06:00 Intake and Output: 01/15/17 01/15/17 06:59 18:59 Intake Total 200 400 Output Total 1200 1250 Balance -1000 -850 - Medications Medications: Current Medications Acetaminophen (Tylenol 325mg Tab) 650 mg PO Q4H PRN PRN Reason: Pain, Mild (1-3) Amylase (Pancrease 95696 U-5000 U-26729 U) 5,000 u PO AC [facility] Last Admin: 01/14/17 18:53 Dose: 5,000 u Aspirin (Ecotrin) 81 mg PO DAILY [facility] Last Admin: 01/14/17 09:43 Dose: 81 mg Benzocaine/Menthol (Cepacol Sore Throat) 1 sveta MT BID PRN PRN Reason: Sore Throat Bisacodyl (Dulcolax) 5 mg PO DAILY PRN PRN Reason: Constipation Docusate Sodium (Colace) 100 mg PO BID [facility] Last Admin: 01/14/17 18:44 Dose: 100 mg Fluconazole (Diflucan Iv 100 Mg/50 Ml Ns) 50 mls @ 100 mls/hr IVPB DAILY [facility] PRN Reason: Protocol Last Admin: 01/14/17 11:12 Dose: 100 mls/hr Piperacillin Sod/Tazobactam Sod (Zosyn 3.375 In Ns 100ml) 100 mls @ 200 mls/hr IVPB Q6 [facility] PRN Reason: Protocol Stop: 01/20/17 00:01 Last Admin: 01/15/17 05:48 Dose: 200 mls/hr Insulin Human Lispro (Humalog High) 0 units SC ACHS [facility] PRN Reason: Protocol Last Admin: 01/14/17 22:04 Dose: Not Given Ondansetron HCl (Zofran Inj) 4 mg IVP Q6H PRN PRN Reason: Nausea/Vomiting Polyethylene Glycol (Miralax) 17 gm PO BID [facility] Last Admin: 01/14/17 18:51 Dose: 17 gm Silver Sulfadiazine (Silvadene 1% 25 Gm) 0 gm TP BID [facility] Last Admin: 01/14/17 18:53 Dose: 1 gm Tramadol HCl (Ultram) 50 mg PO TID PRN PRN Reason: Pain, moderate (4-7) Last Admin: 01/14/17 09:48 Dose: 50 mg - Labs Labs: 01/15/17 07:45 01/15/17 07:45 - Constitutional Appears: No Acute Distress - Head Exam Head Exam: ATRAUMATIC, NORMAL INSPECTION, NORMOCEPHALIC - Eye Exam Eye Exam: EOMI, Normal appearance, PERRL, Scleral icterus Pupil Exam: NORMAL ACCOMODATION, PERRL - ENT Exam ENT Exam: Mucous Membranes Moist, Normal Exam - Neck Exam Neck Exam: Full ROM, Normal Inspection. absent: Lymphadenopathy - Respiratory Exam Respiratory Exam: Clear to Ausculation Bilateral, NORMAL BREATHING PATTERN - Cardiovascular Exam Cardiovascular Exam: REGULAR RHYTHM, +S1, +S2. absent: Murmur - GI/Abdominal Exam GI & Abdominal Exam: Soft, Normal Bowel Sounds. absent: Distended, Tenderness Additional comments: Drain in place - Extremities Exam Extremities Exam: Full ROM, Normal Capillary Refill, Normal Inspection. absent : Joint Swelling, Pedal Edema - Back Exam Back Exam: NORMAL INSPECTION - Neurological Exam Neurological Exam: Alert, Awake, CN II-XII Intact, Normal Gait, Oriented x3 - Psychiatric Exam Psychiatric exam: Normal Affect, Normal Mood - Skin Skin Exam: Dry, Intact, Warm. absent: Erythema, Normal Color Additional comments: juandice Assessment and Plan - Assessment and Plan (Free Text) Assessment: 76 M with Pancreatic adenocarcinoma - Continue supplements and encourage oral intake continuously throughout the day - Neoadjuvent Chemotherapy will be done prior to surgical intervention - Follow up as outpatient with Dr. Sen upon discharge - Will speak to primary and Dr. Trujillo about possible internal non-metal stent replacement and port insertion. GI on board for stent placement with IR. - Will discuss with Dr. Sen
[2017-01-15] MEDS: POLYETHYLENE GLYCOL 3350 17 GM/Dose PACKET PO SCH ×2 (10:33→17:04)
[2017-01-15] MEDS: Silver Sulfadiazine 1% Cream (25 gm) TP SCH ×2 (10:34→17:05)
[2017-01-15] MEDS: Bisacodyl 5mg EC Tab PO PRN (10:35)
[2017-01-15] MEDS: Fluconazole IV 100mg/50 ml NS 50 ML IVPB SCH (10:57)
--- NOTE | 2017-01-15 12:28 | PN ---
DATE: 01/15/2017 SUBJECTIVE: The patient is in bed, in no acute distress, and nontoxic. PHYSICAL EXAMINATION: VITAL SIGNS: On exam, temperature is 97, blood pressure is 125/70 and respiratory rate of 18, and heart rate of 68. HEENT: Examination of HEENT is unremarkable. NECK: Supple. LUNGS: Decreased breath sounds. HEART: Normal S1 and S2. ABDOMEN: Soft and nontender. LABORATORY DATA: Examination reveals the white count of 12,800; hemoglobin of 9 and platelets of 370. Chemistries reveals a BUN of 13 and creatinine of 0.9. ASSESSMENT AND PLAN: This is a 76-year-old male who was seen earlier today with diabetes who was admitted with systemic inflammatory response syndrome, pancreatic-biliary malignancy, and sepsis. The patient had rule out biliary tree disease as a cause and endoscopic ultrasonography and percutaneous drain placement. Currently on Zosyn and Diflucan. Jose David Gracia MD
--- NOTE | 2017-01-16 00:51 | CON ---
DATE: 01/15/2017 HISTORY OF PRESENT ILLNESS: This patient was seen and evaluated earlier. The patient is comfortable , tolerating the diet. PHYSICAL EXAMINATION: VITAL SIGNS: On examination temperature is 97.3, pulse 66, blood pressure 130/77. HEENT Atraumatic. Anicteric. Jaundiced. Eyes: Pupils equal and reactive to light. NECK: Supple. HEART: S1 and S2 heard. LUNGS: Bilateral air entry present. ABDOMEN: Soft. There is no tenderness present. stent in place. EXTREMITIES: No edema. No cyanosis. LABORATORY DATA: Total bilirubin is 5.2; stable, it is not coming down anymore; alkaline phosphatase 401; hemoglobin 9.9; hematocrit 29.7; WBC is 12.8 and platelets 370. IMPRESSION: This 76-year-old patient with pancreatic cancer, infiltrate into the duodenum, status post internal and external stent. I did discuss with vice president financial and pancreatic surgeon . , wanted the patient to have plastic stent placement. I did left a message to Dr. Chicho Trujillo coordinate for having the wire passed from into the duodenum, then we can follow it up with ERCP and stent placement. Follow up of the LFTs. Thank you very much for allowing me to participate in the care of this patient. Yomaira Bradley MD
[2017-01-16] MEDS: Piperacillin/Tazobact 3.375 gm 100 ML IVPB SCH ×3 (05:21→17:31)
[2017-01-16] MEDS: Insulin Lispro (HUMAlog) HIGH Coverage SC SCH ×4 (06:48→22:45)
[2017-01-16] MEDS: POLYETHYLENE GLYCOL 3350 17 GM/Dose PACKET PO SCH ×2 (09:14→17:29)
[2017-01-16] MEDS: Amylase/Lipase/Protease 5,000 U ECC PO SCH ×3 (09:14→17:30)
[2017-01-16] MEDS: Silver Sulfadiazine 1% Cream (25 gm) TP SCH ×2 (09:14→17:31)
[2017-01-16] MEDS: Fluconazole IV 100mg/50 ml NS 50 ML IVPB SCH (11:05)
--- NOTE | 2017-01-16 13:21 | PN ---
DATE: 01/16/2017 SUBJECTIVE: The patient is in bed, in no acute distress, and nontoxic. No fevers and he is complaining of pain in his joints. PHYSICAL EXAMINATION: VITAL SIGNS: Temperature is 97, blood pressure is 98/60, and respiratory rate of 18. HEENT: Unremarkable. NECK: Supple. LUNGS: Decreased breath sounds. HEART: Normal S1 and S2. ABDOMEN: Soft and nontender. LABORATORY DATA: Examination reveals white count of 12,800, hemoglobin of 9, and platelets of 370. BUN of 13 and creatinine of 0.9. Microbiology is noted. ASSESSMENT AND PLAN: This is a 76-year-old male who is seen earlier today with past medical history of diabetes mellitus who is admitted with SIRS (systemic inflammatory response syndrome) with pancreatic biliary malignancy and sepsis. Biliary tree as a cause with endoscopic ultrasonography and percutaneous drain placement. Currently on Zosyn and Diflucan. Review of orders reveals Diflucan to be active and Zosyn is active. Dr. Yomaira Bradley's consultation is reviewed the patient with pancreatic cancer infiltrating to the duodenum status post internal and external stent and we will follow with you. Overall, prognosis is poor. Jose David Gracia MD
[2017-01-16] MEDS ORDERED: Insulin Detemir 100 units/ml Vial (Levemir) SC SCH (22:00)
--- NOTE | 2017-01-17 00:05 | PN ---
DATE: 01/16/2017 SUBJECTIVE: The patient was seen this Tuesday afternoon in room 316, bed 1 with his daughter and her son and daughter (the patient's 2 grandchildren) at the bedside. His granddaughter is a skilled nursing facilities professional, so I was able to explain her grandfather's condition drawing a picture on a piece of a paper of the liver and biliary tree with the pancreas tumor obstruction and explained the cirilo-colored stools, the jaundice, the G-tube drainage, the improving jaundice and plan for future surgery. The patient is doing well in good spirits,walking in the [place] today and is eating well. Looking forward to discharge on . The patient feels very strong about going home. I think he tells me he has some personal matters he needs to attend to before proceeding on with his course of treatment. I will schedule some morning labs for tomorrow. His sugar was running little high, so I will adjust his insulin accordingly. Rehan Jeff MD
[2017-01-17] MEDS: Piperacillin/Tazobact 3.375 gm 100 ML IVPB SCH ×4 (00:11→17:27)
--- NOTE | 2017-01-17 00:33 | PN ---
DATE: 01/15/2017 SUBJECTIVE: The patient was seen this Tuesday morning in room 316, bed 1. He is resting comfortably in bed and in good spirits. He says he is happy with the diet, eating very well. Has little to no pain. G-tube drainage from the biliary tree continues in large quantities. His IV fluids are been cut down. He is taking p.o. rather well. I spoke with his daughter and family regarding future plans and they are quite pleased with the surgical opinion and look forward to making that decision this week. Surgery will be scheduled at a referral center after discharge from transitional care unit. Whether or not chemotherapy will be given before the surgery will be discussed and decided between Oncology and Surgical opinions. Rehan Jeff MD JOSEF
--- NOTE | 2017-01-17 02:30 | PN ---
DATE: 01/16/2017 SUBJECTIVE: This patient was seen and evaluated earlier. The patient is tolerating the diet, comfortable, ambulating well. PHYSICAL EXAMINATION: GENERAL: He is less jaundiced. VITAL SIGNS: Temperature is 97.3, pulse 65 and blood pressure is 108/67. HEENT: Atraumatic and jaundiced. NECK: Supple. HEART: S1 and S2 heard. LUNGS: Bilateral air entry present. ABDOMEN: Soft. There is no mass palpable, drainage catheter present. EXTREMITIES: No edema, no cyanosis. NEUROLOGIC: Alert, oriented, moves all the extremities. LABORATORY DATA: There is no labs today. IMPRESSION: This 76-year-old patient with pancreatic cancer, confirmed by the . The patient had a international biliary stent. Awaiting for the internalizing the stent. We will discuss with the Dr. Chicho Trujillo, in the a.m. regarding the plastic stent placement. Thank you very much for allowing us to participate in the care of the patient. We will repeat the labs tomorrow. Yomaira Bradley MD
[2017-01-17] MEDS: Insulin Lispro (HUMAlog) HIGH Coverage SC SCH ×4 (06:59→23:07)
[2017-01-17 07:06] LABS: BASO # 0.11 K/mm3 (0.0-2.0); BASO % 1.1 % (0.0-3.0); EOS # 1.1 (0.0-0.7); EOS % 11.1 % (1.5-5.0); GRAN # 6.42 (1.4-6.5); GRAN % 63.9 % (50.0-68.0); HEMATOCRIT 27.6 % (42.0-52.0); LYMPH # 1.7 (1.2-3.4); LYMPH % 16.9 % (22.0-35.0); MEAN CELL VOLUME 102.2 fl (80.0-105.0); MEAN CORPUSCULAR HEMOGLOBIN 34.4 pg (25.0-35.0); MEAN CORPUSCULAR HGB CONC 33.7 g/dl (31.0-37.0); MEAN PLATELET VOLUME 10.3 fl (7.0-11.0); MONO # 0.7 (0.1-0.6); RED CELL DISTRIBUTION WIDTH 16.4 % (11.5-14.5); WHITE BLOOD COUNT 10.1 10^3/ul (4.5-11.0)
[2017-01-17 07:25] LABS: ALB/GLOB RATIO 0.9 (1.1-1.8); ALKALINE PHOSPHATASE 320 U/L (38-126); ALT/SGPT 53 U/L (7-56); AST/SGOT 41 U/L (17-59); BILIRUBIN,TOTAL 4.3 mg/dL (0.2-1.3); BLOOD UREA NITROGEN 17 mg/dL (7-21); CALCIUM 8.6 mg/dL (8.4-10.5); CARBON DIOXIDE 27 mmol/L (21-33); CHLORIDE 104 mmol/L (98-107); GFR AFRICAN-AMERICAN > 60; GLUCOSE,RANDOM 89 mg/dL (70-110); POTASSIUM 3.8 mmol/L (3.6-5.0); SODIUM 138 mmol/L (132-148); TOTAL PROTEIN 5.4 g/dL (5.8-8.3)
[2017-01-17] MEDS: Amylase/Lipase/Protease 5,000 U ECC PO SCH ×3 (08:33→16:46)
[2017-01-17] MEDS: POLYETHYLENE GLYCOL 3350 17 GM/Dose PACKET PO SCH ×2 (10:10→17:27)
[2017-01-17] MEDS: Silver Sulfadiazine 1% Cream (25 gm) TP SCH ×2 (10:10→17:27)
[2017-01-17] MEDS: Fluconazole IV 100mg/50 ml NS 50 ML IVPB SCH (10:29)
--- NOTE | 2017-01-17 16:12 | CP.PCM.PN ---
<Elisa Campbell - Last Filed: 01/17/17 16:12> Subjective - Date & Time of Evaluation Date of Evaluation: 01/17/17 Time of Evaluation: 10:45 - Subjective Subjective: Seen and examined at the bedside earlier today, the chart was reviewed. Patient denies nausea, vomiting, or abdominal pain. Family at bedside, reports regular bowel movements denies melena or bright red blood per rectum. No new complaints Objective - Vital Signs/Intake and Output Vital Signs (last 24 hours): Temp Pulse Resp BP Pulse Ox 97.3 F L 64 20 105/68 99 01/17/17 06:00 01/17/17 06:00 01/17/17 06:00 01/17/17 06:00 01/17/17 06:00 - Medications Medications: Current Medications Acetaminophen (Tylenol 325mg Tab) 650 mg PO Q4H PRN PRN Reason: Pain, Mild (1-3) Amylase (Pancrease 32023 U-5000 U-76128 U) 5,000 u PO AC [facility] Last Admin: 01/17/17 13:23 Dose: Not Given Aspirin (Ecotrin) 81 mg PO DAILY [facility] Last Admin: 01/17/17 10:10 Dose: 81 mg Benzocaine/Menthol (Cepacol Sore Throat) 1 sveta MT BID PRN PRN Reason: Sore Throat Bisacodyl (Dulcolax) 5 mg PO DAILY PRN PRN Reason: Constipation Last Admin: 01/15/17 10:35 Dose: 5 mg Docusate Sodium (Colace) 100 mg PO BID [facility] Last Admin: 01/17/17 10:10 Dose: 100 mg Fluconazole (Diflucan Iv 100 Mg/50 Ml Ns) 50 mls @ 100 mls/hr IVPB DAILY [facility] PRN Reason: Protocol Last Admin: 01/17/17 10:29 Dose: 100 mls/hr Piperacillin Sod/Tazobactam Sod (Zosyn 3.375 In Ns 100ml) 100 mls @ 200 mls/hr IVPB Q6 [facility] PRN Reason: Protocol Stop: 01/20/17 00:01 Last Admin: 01/17/17 11:36 Dose: 200 mls/hr Insulin Detemir (Levemir) 14 unit SC HS [facility] Insulin Human Lispro (Humalog High) 0 units SC ACHS [facility] PRN Reason: Protocol Last Admin: 01/17/17 11:35 Dose: 4 units Ondansetron HCl (Zofran Inj) 4 mg IVP Q6H PRN PRN Reason: Nausea/Vomiting Polyethylene Glycol (Miralax) 17 gm PO BID [facility] Last Admin: 01/17/17 10:10 Dose: 17 gm Silver Sulfadiazine (Silvadene 1% 25 Gm) 0 gm TP BID [facility] Last Admin: 01/17/17 10:10 Dose: 25 gm Tramadol HCl (Ultram) 50 mg PO TID PRN PRN Reason: Pain, moderate (4-7) Last Admin: 01/17/17 03:45 Dose: 50 mg - Labs Labs: 01/17/17 06:30 01/17/17 06:30 - Constitutional Appears: No Acute Distress - Eye Exam Eye Exam: Normal appearance - ENT Exam ENT Exam: Mucous Membranes Moist - Respiratory Exam Respiratory Exam: NORMAL BREATHING PATTERN. absent: Respiratory Distress - Cardiovascular Exam Cardiovascular Exam: +S1, +S2 - GI/Abdominal Exam GI & Abdominal Exam: Soft, Normal Bowel Sounds. absent: Guarding (the), Tenderness, Rebound Additional comments: left PTC drain in place, draining light green bile - Extremities Exam Extremities Exam: Normal Capillary Refill (physician). absent: Calf Tenderness , Pedal Edema - Neurological Exam Neurological Exam: Alert, Awake, Oriented x3 - Skin Skin Exam: Dry (CC that antibiotics), Warm Assessment and Plan - Assessment and Plan (Free Text) Assessment: Assessment: Pancreatic head Adenocarcinoma Improving Obstructive jaundice Status post internal and external biliary drain with dilatation of malignant obstruction Weight loss History of diabetes mellitus Plan: continue diet to low-fat diet Trend LFTs continue IV antibiotics as per ID continue bowel regimen On pancreatic enzymes Plan for plastic stent placement on 01/19/17, nothing by mouth post midnight Tuesday Seen and discussed with Dr. Bruce <Yomaira Bradley V - Last Filed: 01/17/17 23:38> Objective - Vital Signs/Intake and Output Vital Signs (last 24 hours): Temp Pulse Resp BP Pulse Ox 98.1 F 65 18 111/64 97 01/17/17 17:44 01/17/17 17:44 01/17/17 17:44 01/17/17 17:44 01/17/17 17:44 Intake and Output: 01/17/17 01/18/17 18:59 06:59 Intake Total 420 Balance 420 - Medications Medications: Current Medications Acetaminophen (Tylenol 325mg Tab) 650 mg PO Q4H PRN PRN Reason: Pain, Mild (1-3) Amylase (Pancrease 50448 U-5000 U-33129 U) 5,000 u PO AC [facility] Last Admin: 01/17/17 16:46 Dose: 5,000 u Aspirin (Ecotrin) 81 mg PO DAILY [facility] Last Admin: 01/17/17 10:10 Dose: 81 mg Benzocaine/Menthol (Cepacol Sore Throat) 1 sveta MT BID PRN PRN Reason: Sore Throat Bisacodyl (Dulcolax) 5 mg PO DAILY PRN PRN Reason: Constipation Last Admin: 01/15/17 10:35 Dose: 5 mg Docusate Sodium (Colace) 100 mg PO BID [facility] Last Admin: 01/17/17 17:27 Dose: 100 mg Fluconazole (Diflucan Iv 100 Mg/50 Ml Ns) 50 mls @ 100 mls/hr IVPB DAILY [facility] PRN Reason: Protocol Last Admin: 01/17/17 10:29 Dose: 100 mls/hr Insulin Detemir (Levemir) 14 unit SC HS [facility] Last Admin: 01/17/17 22:53 Dose: 14 unit Insulin Human Lispro (Humalog High) 0 units SC ACHS [facility] PRN Reason: Protocol Last Admin: 01/17/17 23:07 Dose: 2 units Ondansetron HCl (Zofran Inj) 4 mg IVP Q6H PRN PRN Reason: Nausea/Vomiting Polyethylene Glycol (Miralax) 17 gm PO BID [facility] Last Admin: 01/17/17 17:27 Dose: 17 gm Silver Sulfadiazine (Silvadene 1% 25 Gm) 0 gm TP BID [facility] Last Admin: 01/17/17 17:27 Dose: 25 gm Tramadol HCl (Ultram) 50 mg PO TID PRN PRN Reason: Pain, moderate (4-7) Last Admin: 01/17/17 22:55 Dose: 50 mg - Labs Labs: 01/17/17 06:30 01/17/17 06:30 Attending/Attestation - Attestation I have personally seen and examined this patient.: Yes I have fully participated in the care of the patient.: Yes I have reviewed all pertinent clinical information, including history, physical exam and plan: Yes Notes (Text): This is an addendum to GI progress report dictated by Elisa Campbell APN.The patient was seen and examined earlier. Medical records, lab studies, imagings were reviewed. Last 24 hours events reviewed. Agreed with the above treatment plan as outlined in Elisa Campbell APN's notes the with the addition of the following Discussed with the Dr. Chicho Trujillo patient scheduled for ERCP and metal stent placement on Tuesday01/17/17 23:37
--- NOTE | 2017-01-17 18:33 | CP.PCM.PN ---
Subjective - Date & Time of Evaluation Date of Evaluation: 01/17/17 Time of Evaluation: 17:40 - Subjective Subjective: Comfortable, not in distress. No fevers. Objective - Vital Signs/Intake and Output Vital Signs (last 24 hours): Temp Pulse Resp BP Pulse Ox 98.1 F 65 18 111/64 97 01/17/17 16:00 01/17/17 16:00 01/17/17 16:00 01/17/17 16:00 01/17/17 16:00 - Medications Medications: Current Medications Acetaminophen (Tylenol 325mg Tab) 650 mg PO Q4H PRN PRN Reason: Pain, Mild (1-3) Amylase (Pancrease 24518 U-5000 U-44307 U) 5,000 u PO AC [facility] Last Admin: 01/17/17 13:23 Dose: Not Given Aspirin (Ecotrin) 81 mg PO DAILY [facility] Last Admin: 01/17/17 10:10 Dose: 81 mg Benzocaine/Menthol (Cepacol Sore Throat) 1 sveta MT BID PRN PRN Reason: Sore Throat Bisacodyl (Dulcolax) 5 mg PO DAILY PRN PRN Reason: Constipation Last Admin: 01/15/17 10:35 Dose: 5 mg Docusate Sodium (Colace) 100 mg PO BID [facility] Last Admin: 01/17/17 10:10 Dose: 100 mg Fluconazole (Diflucan Iv 100 Mg/50 Ml Ns) 50 mls @ 100 mls/hr IVPB DAILY [facility] PRN Reason: Protocol Last Admin: 01/17/17 10:29 Dose: 100 mls/hr Piperacillin Sod/Tazobactam Sod (Zosyn 3.375 In Ns 100ml) 100 mls @ 200 mls/hr IVPB Q6 [facility] PRN Reason: Protocol Stop: 01/20/17 00:01 Last Admin: 01/17/17 11:36 Dose: 200 mls/hr Insulin Detemir (Levemir) 14 unit SC HS [facility] Insulin Human Lispro (Humalog High) 0 units SC ACHS [facility] PRN Reason: Protocol Last Admin: 01/17/17 11:35 Dose: 4 units Ondansetron HCl (Zofran Inj) 4 mg IVP Q6H PRN PRN Reason: Nausea/Vomiting Polyethylene Glycol (Miralax) 17 gm PO BID [facility] Last Admin: 01/17/17 10:10 Dose: 17 gm Silver Sulfadiazine (Silvadene 1% 25 Gm) 0 gm TP BID [facility] Last Admin: 01/17/17 10:10 Dose: 25 gm Tramadol HCl (Ultram) 50 mg PO TID PRN PRN Reason: Pain, moderate (4-7) Last Admin: 01/17/17 03:45 Dose: 50 mg - Labs Labs: 01/17/17 06:30 01/17/17 06:30 - Constitutional Appears: Non-toxic, No Acute Distress - Head Exam Head Exam: NORMAL INSPECTION - ENT Exam ENT Exam: Mucous Membranes Moist - Neck Exam Neck Exam: absent: Meningismus - Respiratory Exam Respiratory Exam: Decreased Breath Sounds - Cardiovascular Exam Cardiovascular Exam: +S1, +S2 - GI/Abdominal Exam GI & Abdominal Exam: Soft. absent: Tenderness Assessment and Plan - Assessment and Plan (Free Text) Plan: Assessment Systemic Inflammatory Response Syndrome, consider due to pancreatic / biliary malignancy; S/P EUS and percutaneous drain placement - grew C. albicans DM Plan will d/c Zosyn and keep Diflucan for now (day 7) - complete 7-10 days of therapy Overall prognosis is poor will continue to monitor clinically discussed with Dr. Bradley
[2017-01-17] MEDS: Insulin Detemir 100 units/ml Vial (Levemir) SC SCH (22:53)
[2017-01-18] MEDS: Bisacodyl 5mg EC Tab PO PRN (05:17)
[2017-01-18] MEDS: Insulin Lispro (HUMAlog) HIGH Coverage SC SCH ×4 (06:58→22:22)
[2017-01-18] MEDS: Amylase/Lipase/Protease 5,000 U ECC PO SCH ×3 (08:21→16:54)
[2017-01-18] MEDS: POLYETHYLENE GLYCOL 3350 17 GM/Dose PACKET PO SCH ×3 (09:10→17:35)
--- NOTE | 2017-01-18 09:46 | CP.PCM.PN ---
Subjective - Date & Time of Evaluation Date of Evaluation: 01/18/17 Time of Evaluation: 09:42 - Subjective Subjective: Heme/Onc Progress Note for Elan Ibrahim PGY2 Patient seen and examined at bedside. As per nursing, there were no acute overnight events. They report patient received Dulcolax last night. Patient report having a BM this morning that was described as normal without blood or dark in color. This morning patient reports having some abdominal pain when palpated, but denies chest pain, shortness of breath, nausea/vomiting/diarrhea, fever or chills. He does complain of some fatigue. Objective - Vital Signs/Intake and Output Vital Signs (last 24 hours): Temp Pulse Resp BP Pulse Ox 97.5 F L 71 18 129/85 99 01/18/17 06:00 01/18/17 06:00 01/18/17 06:00 01/18/17 06:00 01/18/17 06:00 Intake and Output: 01/18/17 01/18/17 06:59 18:59 Intake Total 420 Output Total 550 Balance -130 - Medications Medications: Current Medications Acetaminophen (Tylenol 325mg Tab) 650 mg PO Q4H PRN PRN Reason: Pain, Mild (1-3) Amylase (Pancrease 19456 U-5000 U-26887 U) 5,000 u PO AC [facility] Last Admin: 01/18/17 08:21 Dose: 5,000 u Aspirin (Ecotrin) 81 mg PO DAILY [facility] Last Admin: 01/18/17 09:09 Dose: 81 mg Benzocaine/Menthol (Cepacol Sore Throat) 1 sveta MT BID PRN PRN Reason: Sore Throat Bisacodyl (Dulcolax) 5 mg PO DAILY PRN PRN Reason: Constipation Last Admin: 01/18/17 05:17 Dose: 5 mg Docusate Sodium (Colace) 100 mg PO BID [facility] Last Admin: 01/18/17 09:09 Dose: 100 mg Fluconazole (Diflucan Iv 100 Mg/50 Ml Ns) 50 mls @ 100 mls/hr IVPB DAILY [facility] PRN Reason: Protocol Last Admin: 01/17/17 10:29 Dose: 100 mls/hr Insulin Detemir (Levemir) 14 unit SC HS [facility] Last Admin: 01/17/17 22:53 Dose: 14 unit Insulin Human Lispro (Humalog High) 0 units SC ACHS [facility] PRN Reason: Protocol Last Admin: 01/18/17 06:58 Dose: Not Given Ondansetron HCl (Zofran Inj) 4 mg IVP Q6H PRN PRN Reason: Nausea/Vomiting Polyethylene Glycol (Miralax) 17 gm PO BID [facility] Last Admin: 01/18/17 09:11 Dose: Not Given Silver Sulfadiazine (Silvadene 1% 25 Gm) 0 gm TP BID [facility] Last Admin: 01/17/17 17:27 Dose: 25 gm Tramadol HCl (Ultram) 50 mg PO TID PRN PRN Reason: Pain, moderate (4-7) Last Admin: 01/17/17 22:55 Dose: 50 mg - Labs Labs: 01/17/17 06:30 01/17/17 06:30 - Constitutional Appears: No Acute Distress, Chronically Ill - Head Exam Head Exam: ATRAUMATIC, NORMAL INSPECTION, NORMOCEPHALIC - Eye Exam Eye Exam: PERRL, Scleral icterus Pupil Exam: PERRL - ENT Exam ENT Exam: Mucous Membranes Moist - Neck Exam Neck Exam: Full ROM - Respiratory Exam Respiratory Exam: Clear to Ausculation Bilateral, NORMAL BREATHING PATTERN. absent: Rales, Rhonchi, Wheezes - Cardiovascular Exam Cardiovascular Exam: REGULAR RHYTHM, +S1, +S2. absent: Gallop, Rubs - GI/Abdominal Exam GI & Abdominal Exam: Soft, Tenderness (diffuse tenderness near biliary drain site ), Normal Bowel Sounds Additional comments: biliary drain in place- clean and dry- draining bile - Extremities Exam Extremities Exam: Normal Inspection. absent: Calf Tenderness, Pedal Edema - Neurological Exam Neurological Exam: Alert, Awake, CN II-XII Intact, Oriented x3 - Psychiatric Exam Psychiatric exam: Normal Affect, Normal Mood - Skin Skin Exam: Dry, Warm. 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 Patient is status post internal and external biliary stent placement with drain. Patient is planned for stent placement/ERCP tomorrow morning. Plan: - Patient noted to have elevated bilirubin - Will d/c Diflucan since patient has already received 7 day course and it can affect the bilirubin - Chemotherapy recommended once bilirubin below 2.5 - Continue management as per IR and GI- Patient will have procedure in AM - stent and ERCP (NPO at midnight) - Continue bowel regimen - Radiation/oncology consulted- recs appreciated - As per surgery- no intervention at this time - Recommend follow up with Dr. Bautista as outpatient upon discharge Case seen, discussed and reviewed with Dr. Michele Marroquin PGY2
--- NOTE | 2017-01-18 11:25 | CP.PCM.PN ---
Subjective - Date & Time of Evaluation Date of Evaluation: 01/18/17 Time of Evaluation: 11:15 - Subjective Subjective: Comfortable, no abdominal pain, no nausea, no fevers. Objective - Vital Signs/Intake and Output Vital Signs (last 24 hours): Temp Pulse Resp BP Pulse Ox 97.5 F L 71 18 129/85 99 01/18/17 06:00 01/18/17 06:00 01/18/17 06:00 01/18/17 06:00 01/18/17 06:00 Intake and Output: 01/18/17 01/18/17 06:59 18:59 Intake Total 420 Output Total 550 Balance -130 - Medications Medications: Current Medications Acetaminophen (Tylenol 325mg Tab) 650 mg PO Q4H PRN PRN Reason: Pain, Mild (1-3) Amylase (Pancrease 87739 U-5000 U-07034 U) 5,000 u PO AC [facility] Last Admin: 01/18/17 08:21 Dose: 5,000 u Aspirin (Ecotrin) 81 mg PO DAILY [facility] Last Admin: 01/18/17 09:09 Dose: 81 mg Benzocaine/Menthol (Cepacol Sore Throat) 1 sveta MT BID PRN PRN Reason: Sore Throat Bisacodyl (Dulcolax) 5 mg PO DAILY PRN PRN Reason: Constipation Last Admin: 01/18/17 05:17 Dose: 5 mg Docusate Sodium (Colace) 100 mg PO BID [facility] Last Admin: 01/18/17 09:09 Dose: 100 mg Fluconazole (Diflucan Iv 100 Mg/50 Ml Ns) 50 mls @ 100 mls/hr IVPB DAILY [facility] PRN Reason: Protocol Last Admin: 01/17/17 10:29 Dose: 100 mls/hr Insulin Detemir (Levemir) 14 unit SC HS [facility] Last Admin: 01/17/17 22:53 Dose: 14 unit Insulin Human Lispro (Humalog High) 0 units SC ACHS [facility] PRN Reason: Protocol Last Admin: 01/18/17 06:58 Dose: Not Given Ondansetron HCl (Zofran Inj) 4 mg IVP Q6H PRN PRN Reason: Nausea/Vomiting Polyethylene Glycol (Miralax) 17 gm PO BID [facility] Last Admin: 01/18/17 09:11 Dose: Not Given Silver Sulfadiazine (Silvadene 1% 25 Gm) 0 gm TP BID [facility] Last Admin: 01/17/17 17:27 Dose: 25 gm Tramadol HCl (Ultram) 50 mg PO TID PRN PRN Reason: Pain, moderate (4-7) Last Admin: 01/17/17 22:55 Dose: 50 mg - Labs Labs: 01/17/17 06:30 01/17/17 06:30 - Constitutional Appears: Non-toxic - Head Exam Head Exam: NORMAL INSPECTION - ENT Exam ENT Exam: Mucous Membranes Moist - Neck Exam Neck Exam: absent: Meningismus - Respiratory Exam Respiratory Exam: Decreased Breath Sounds - Cardiovascular Exam Cardiovascular Exam: +S1, +S2 - GI/Abdominal Exam GI & Abdominal Exam: Soft. absent: Tenderness Assessment and Plan - Assessment and Plan (Free Text) Plan: Assessment Systemic Inflammatory Response Syndrome, consider due to pancreatic / biliary malignancy; S/P EUS and percutaneous drain placement - grew C. albicans DM Plan on Diflucan for now (day 8) - complete 7-10 days of therapy - will d/c after today Overall prognosis is poor will continue to follow clinically discussed with Dr. Bradley
[2017-01-18] MEDS: Silver Sulfadiazine 1% Cream (25 gm) TP SCH ×2 (11:26→19:00)
--- NOTE | 2017-01-18 15:05 | PN ---
DATE: 01/17/2017 SUBJECTIVE: The patient is a 76-year-old male who was admitted to [facility] with painless jaundice. He was found to have adenocarcinoma of the head of the pancreas involving the ampulla. An external drainage stent was placed and the patient's liver enzymes and total bilirubin has come down. Five days ago, the patient was transferred to the Transitional Care Unit for physical therapy. When seen today, he is awake, alert, and oriented. His son is sitting at bedside. He is comfortable. He has no complaints. PHYSICAL EXAMINATION: VITAL SIGNS: His blood pressure is 108/67, heart rate is 65 and he is afebrile. LABORATORY DATA: The white blood cell count this morning is 10.1, hemoglobin is 9.3, hematocrit 27.6. His glucose is still elevated at 327. ASSESSMENT AND PLAN: Currently, we are adjusting his insulin dosage to manage his newly-diagnosed diabetes. There are plans to internalize the stent possibly tomorrow and once the stent is internalized, the patient will be discharged to home. His plans are to continue eating for nutritional support, physical therapy as an outpatient for muscular strength and then possibly begin chemotherapy and surgical excision of his pancreatic tumor. Cody Jeff MD
--- NOTE | 2017-01-18 18:55 | CP.PCM.PN ---
<Elisa Campbell - Last Filed: 01/18/17 18:58> Subjective - Date & Time of Evaluation Date of Evaluation: 01/18/17 Time of Evaluation: 10:20 - Subjective Subjective: Seen and examined at the bedside earlier today,patient with no new complaints. Patient Dulcolax PO yesterday, had a BM, no reports of diarrhea, melena or bright red blood per rectum. Tolerating oral intake. Denies nausea, vomiting, or abdominal pain. Objective - Vital Signs/Intake and Output Vital Signs (last 24 hours): Temp Pulse Resp BP Pulse Ox 97.8 F 65 18 107/73 99 01/18/17 16:26 01/18/17 16:26 01/18/17 16:26 01/18/17 16:26 01/18/17 16:26 Intake and Output: 01/18/17 01/18/17 06:59 18:59 Intake Total 420 Output Total 550 Balance -130 - Medications Medications: Current Medications Acetaminophen (Tylenol 325mg Tab) 650 mg PO Q4H PRN PRN Reason: Pain, Mild (1-3) Amylase (Pancrease 65696 U-5000 U-90320 U) 5,000 u PO AC [facility] Last Admin: 01/18/17 16:54 Dose: 5,000 u Aspirin (Ecotrin) 81 mg PO DAILY [facility] Last Admin: 01/18/17 09:09 Dose: 81 mg Benzocaine/Menthol (Cepacol Sore Throat) 1 sveta MT BID PRN PRN Reason: Sore Throat Bisacodyl (Dulcolax) 5 mg PO DAILY PRN PRN Reason: Constipation Last Admin: 01/18/17 05:17 Dose: 5 mg Docusate Sodium (Colace) 100 mg PO BID [facility] Last Admin: 01/18/17 17:35 Dose: 100 mg Insulin Detemir (Levemir) 14 unit SC HS [facility] Last Admin: 01/17/17 22:53 Dose: 14 unit Insulin Human Lispro (Humalog High) 0 units SC ACHS [facility] PRN Reason: Protocol Last Admin: 01/18/17 17:29 Dose: 7 units Ondansetron HCl (Zofran Inj) 4 mg IVP Q6H PRN PRN Reason: Nausea/Vomiting Polyethylene Glycol (Miralax) 17 gm PO BID [facility] Last Admin: 01/18/17 17:35 Dose: 17 gm Silver Sulfadiazine (Silvadene 1% 25 Gm) 0 gm TP BID [facility] Last Admin: 01/18/17 11:26 Dose: 25 gm Tramadol HCl (Ultram) 50 mg PO TID PRN PRN Reason: Pain, moderate (4-7) Last Admin: 01/18/17 16:53 Dose: 50 mg - Labs Labs: 01/17/17 06:30 01/17/17 06:30 - Constitutional Appears: No Acute Distress, Cachectic - Eye Exam Eye Exam: Scleral icterus - ENT Exam ENT Exam: Mucous Membranes Moist - Neck Exam Neck Exam: Normal Inspection - Respiratory Exam Respiratory Exam: NORMAL BREATHING PATTERN. absent: Rales, Wheezes, Respiratory Distress - Cardiovascular Exam Cardiovascular Exam: +S1, +S2 - GI/Abdominal Exam GI & Abdominal Exam: Soft, Normal Bowel Sounds. absent: Guarding, Rebound Additional comments: PTC drain in place and draining light bile color secretions. - Extremities Exam Extremities Exam: Normal Capillary Refill. absent: Calf Tenderness, Pedal Edema - Skin Skin Exam: Dry, Warm Additional comments: improved jaundice Assessment and Plan - Assessment and Plan (Free Text) Assessment: Assessment: Pancreatic head Adenocarcinoma Improving Obstructive jaundice Status post internal and external biliary drain with dilatation of malignant obstruction Weight loss History of diabetes mellitus Plan: continue diet to low-fat diet Trend LFTs continue IV antibiotics as per ID continue bowel regimen On pancreatic enzymes Hold a.m. dose of aspirin For plastic stent placement on 01/19/17, nothing by mouth post midnight Tuesday, labs in a.m., see orders. Discussed with patient and nursing staff. Seen and discussed with Dr. Bruce <Yomaira Bradley V - Last Filed: 01/18/17 22:58> Objective - Vital Signs/Intake and Output Vital Signs (last 24 hours): Temp Pulse Resp BP Pulse Ox 97.8 F 65 18 107/73 99 01/18/17 16:26 01/18/17 16:26 01/18/17 16:26 01/18/17 16:26 01/18/17 16:26 Intake and Output: 01/18/17 01/19/17 18:59 06:59 Intake Total 520 Balance 520 - Medications Medications: Current Medications Acetaminophen (Tylenol 325mg Tab) 650 mg PO Q4H PRN PRN Reason: Pain, Mild (1-3) Amylase (Pancrease 69986 U-5000 U-29462 U) 5,000 u PO AC [facility] Last Admin: 01/18/17 16:54 Dose: 5,000 u Aspirin (Ecotrin) 81 mg PO DAILY [facility] Last Admin: 01/18/17 09:09 Dose: 81 mg Benzocaine/Menthol (Cepacol Sore Throat) 1 sveta MT BID PRN PRN Reason: Sore Throat Bisacodyl (Dulcolax) 5 mg PO DAILY PRN PRN Reason: Constipation Last Admin: 01/18/17 05:17 Dose: 5 mg Docusate Sodium (Colace) 100 mg PO BID [facility] Last Admin: 01/18/17 17:35 Dose: 100 mg Insulin Detemir (Levemir) 14 unit SC HS [facility] Last Admin: 01/18/17 22:22 Dose: Not Given Insulin Human Lispro (Humalog High) 0 units SC [facility] PRN Reason: Protocol Last Admin: 01/18/17 22:22 Dose: Not Given Ondansetron HCl (Zofran Inj) 4 mg IVP Q6H PRN PRN Reason: Nausea/Vomiting Polyethylene Glycol (Miralax) 17 gm PO BID [facility] Last Admin: 01/18/17 17:35 Dose: 17 gm Silver Sulfadiazine (Silvadene 1% 25 Gm) 0 gm TP BID [facility] Last Admin: 01/18/17 19:00 Dose: 1 gm Tramadol HCl (Ultram) 50 mg PO TID PRN PRN Reason: Pain, moderate (4-7) Last Admin: 01/18/17 22:23 Dose: 50 mg - Labs Labs: 01/17/17 06:30 01/17/17 06:30 Attending/Attestation - Attestation I have personally seen and examined this patient.: Yes I have fully participated in the care of the patient.: Yes I have reviewed all pertinent clinical information, including history, physical exam and plan: Yes Notes (Text): This is an addendum to GI progress report dictated by Elisa Campbell APN.The patient was seen and examined earlier. Medical records, lab studies, imagings were reviewed. Last 24 hours events reviewed. Agreed with the above treatment plan as outlined in Elisa Campbell APN's notes the with the addition of the following Patient is feeling better complains of abdominal pain Abdomen soft nontender Discussed with the interventional radiologist Dr. Chicho Trujillo Patient is scheduled for ERCP with the interventional radiology assistance for placement of metal stent 01/18/17 22:56
[2017-01-18] MEDS: Insulin Detemir 100 units/ml Vial (Levemir) SC SCH (22:22)
[2017-01-19 07:15] LABS: BASO # 0.15 K/mm3 (0.0-2.0); BASO % 1.6 % (0.0-3.0); EOS % 10.3 % (1.5-5.0); GRAN # 5.91 (1.4-6.5); GRAN % 61.1 % (50.0-68.0); HEMATOCRIT 34.6 % (42.0-52.0); LYMPH # 1.9 (1.2-3.4); LYMPH % 19.8 % (22.0-35.0); MEAN CELL VOLUME 103.6 fl (80.0-105.0); MEAN CORPUSCULAR HEMOGLOBIN 33.5 pg (25.0-35.0); MEAN CORPUSCULAR HGB CONC 32.4 g/dl (31.0-37.0); MEAN PLATELET VOLUME 10.3 fl (7.0-11.0); MONO # 0.7 (0.1-0.6); MONO % 7.2 % (1.0-6.0); RED CELL DISTRIBUTION WIDTH 16.8 % (11.5-14.5); WHITE BLOOD COUNT 9.7 10^3/ul (4.5-11.0)
[2017-01-19] MEDS ORDERED: Sodium Chloride 0.9% 1,000 ML IV SCH ×4 (07:15→18:52)
[2017-01-19 07:32] LABS: INR 1.15 (0.93-1.08); PARTIAL THROMBOPLASTIN TIME 34.6 Seconds (25.1-36.5)
[2017-01-19 07:49] LABS: ALKALINE PHOSPHATASE 365 U/L (38-126); ALT/SGPT 68 U/L (7-56); AST/SGOT 48 U/L (17-59); BILIRUBIN,TOTAL 4.6 mg/dL (0.2-1.3); BLOOD UREA NITROGEN 24 mg/dL (7-21); CALCIUM 9.2 mg/dL (8.4-10.5); CARBON DIOXIDE 27 mmol/L (21-33); CHLORIDE 101 mmol/L (95-110); GFR AFRICAN-AMERICAN > 60; GLUCOSE,RANDOM 192 mg/dL (70-110); POTASSIUM 4.4 mmol/L (3.6-5.0); SODIUM 135 mmol/L (132-148); TOTAL PROTEIN 6.5 g/dL (5.8-8.3)
[2017-01-19] MEDS: Amylase/Lipase/Protease 5,000 U ECC PO SCH ×3 (08:37→17:05)
[2017-01-19] MEDS: Insulin Lispro (humaLOG) MEDIUM Coverage SC SCH ×4 (08:37→22:49)
[2017-01-19] MEDS: POLYETHYLENE GLYCOL 3350 17 GM/Dose PACKET PO SCH (09:11)
--- NOTE | 2017-01-19 09:21 | CP.PCM.PN ---
Subjective - Date & Time of Evaluation Date of Evaluation: 01/19/17 Time of Evaluation: 09:18 - Subjective Subjective: Heme/Onc Progress Note for Elan Ibrahim PGY2 Patient seen and examined at bedside. As per nursing, there were no acute overnight events. Patient reports having some generalized joint pain last night , but it is not new. It was relieved by Tramadol. He denies chest pain, shortness of breath, abdominal pain, nausea/vomiting/diarrhea, numbness/tingling , fever or chills. He reports he had 2 BM yesterday and were normal in caliber and color. His biliary drain had 500cc of output overnight. Blood pressure was noted to be on the lower side this morning. Patient reports he has not been drinking much water because he has not been feeling thirsty. Objective - Vital Signs/Intake and Output Vital Signs (last 24 hours): Temp Pulse Resp BP Pulse Ox 97.8 F 65 18 107/73 99 01/18/17 16:26 01/18/17 16:26 01/18/17 16:26 01/18/17 16:26 01/18/17 16:26 Intake and Output: 01/19/17 01/19/17 06:59 18:59 Intake Total 520 Output Total 550 Balance -30 - Medications Medications: Current Medications Acetaminophen (Tylenol 325mg Tab) 650 mg PO Q4H PRN PRN Reason: Pain, Mild (1-3) Amylase (Pancrease 05520 U-5000 U-18655 U) 5,000 u PO AC [facility] Last Admin: 01/19/17 08:37 Dose: 5,000 u Aspirin (Ecotrin) 81 mg PO DAILY [facility] Last Admin: 01/18/17 09:09 Dose: 81 mg Benzocaine/Menthol (Cepacol Sore Throat) 1 sveta MT BID PRN PRN Reason: Sore Throat Bisacodyl (Dulcolax) 5 mg PO DAILY PRN PRN Reason: Constipation Last Admin: 01/18/17 05:17 Dose: 5 mg Docusate Sodium (Colace) 100 mg PO BID [facility] Last Admin: 01/19/17 09:11 Dose: 100 mg Sodium Chloride (Sodium Chloride 0.9%) 1,000 mls @ 100 mls/hr IV .Q10H [facility] Last Admin: 01/19/17 08:38 Dose: 100 mls/hr Insulin Detemir (Levemir) 14 unit SC HS [facility] Last Admin: 01/18/17 22:22 Dose: Not Given Insulin Human Lispro (Humalog Med) 0 units SC ACHS [facility] PRN Reason: Protocol Last Admin: 01/19/17 08:37 Dose: 3 units Ondansetron HCl (Zofran Inj) 4 mg IVP Q6H PRN PRN Reason: Nausea/Vomiting Polyethylene Glycol (Miralax) 17 gm PO BID [facility] Last Admin: 01/19/17 09:11 Dose: Not Given Silver Sulfadiazine (Silvadene 1% 25 Gm) 0 gm TP BID [facility] Last Admin: 01/18/17 19:00 Dose: 1 gm Tramadol HCl (Ultram) 50 mg PO TID PRN PRN Reason: Pain, moderate (4-7) Last Admin: 01/18/17 22:23 Dose: 50 mg - Labs Labs: 01/19/17 06:40 01/19/17 06:40 PT 12.7 SECONDS (9.4-12.5) H 01/19/17 06:40 INR 1.15 (0.93-1.08) H 01/19/17 06:40 APTT 34.6 Seconds (25.1-36.5) 01/19/17 06:40 - Constitutional Appears: No Acute Distress - Head Exam Head Exam: NORMAL INSPECTION, NORMOCEPHALIC - Eye Exam Eye Exam: PERRL, Scleral icterus Pupil Exam: PERRL - ENT Exam ENT Exam: Mucous Membranes Moist - Neck Exam Neck Exam: Full ROM - Respiratory Exam Respiratory Exam: Clear to Ausculation Bilateral, NORMAL BREATHING PATTERN. absent: Rales, Rhonchi, Wheezes - Cardiovascular Exam Cardiovascular Exam: REGULAR RHYTHM, +S1, +S2. absent: Gallop, Rubs, Murmur - GI/Abdominal Exam GI & Abdominal Exam: Soft, Tenderness (mild diffuse tenderness to palpation ), Normal Bowel Sounds. absent: Rigid, Mass, Rebound Additional comments: drain in place with green draining- dressing clean and dry - Extremities Exam Extremities Exam: Normal Inspection. 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 Patient is status post internal and external biliary stent placement with drain. Patient is planned for plastic stent placement/ERCP this afternoon. Plan: - Bilirubin level stable - Started NS @ 100cc/hr for hydration - Chemotherapy once bilirubin below 2.5 - Continue medical management as per IR and GI - Continue bowel regimen - Radiation/oncology consulted- recs appreciated - As per surgery- no intervention at this time- may do surgery on pancreatic head after chemotherapy as outpatient - Recommend follow up with Dr. Bautista as outpatient upon discharge Case seen, discussed and reviewed with Dr. Michele Marroquin PGY2
[2017-01-19] MEDS: Silver Sulfadiazine 1% Cream (25 gm) TP SCH (10:09)
--- NOTE | 2017-01-19 13:02 | CP.PCM.PN ---
Subjective - Date & Time of Evaluation Date of Evaluation: 01/19/17 Time of Evaluation: 11:15 - Subjective Subjective: For port placement today, no fevers overnight, no abdominal pain, no diarrhea, appetite is fair. Objective - Vital Signs/Intake and Output Vital Signs (last 24 hours): Temp Pulse Resp BP Pulse Ox 97.8 F 65 18 107/73 99 01/18/17 16:26 01/18/17 16:26 01/18/17 16:26 01/18/17 16:26 01/18/17 16:26 Intake and Output: 01/19/17 01/19/17 06:59 18:59 Intake Total 520 Output Total 550 Balance -30 - Medications Medications: Current Medications Acetaminophen (Tylenol 325mg Tab) 650 mg PO Q4H PRN PRN Reason: Pain, Mild (1-3) Amylase (Pancrease 22903 U-5000 U-79806 U) 5,000 u PO AC [facility] Last Admin: 01/19/17 08:37 Dose: 5,000 u Aspirin (Ecotrin) 81 mg PO DAILY [facility] Last Admin: 01/18/17 09:09 Dose: 81 mg Benzocaine/Menthol (Cepacol Sore Throat) 1 sveta MT BID PRN PRN Reason: Sore Throat Bisacodyl (Dulcolax) 5 mg PO DAILY PRN PRN Reason: Constipation Last Admin: 01/18/17 05:17 Dose: 5 mg Docusate Sodium (Colace) 100 mg PO BID [facility] Last Admin: 01/19/17 09:11 Dose: 100 mg Sodium Chloride (Sodium Chloride 0.9%) 1,000 mls @ 100 mls/hr IV .Q10H [facility] Last Admin: 01/19/17 08:38 Dose: 100 mls/hr Insulin Detemir (Levemir) 14 unit SC HS [facility] Last Admin: 01/18/17 22:22 Dose: Not Given Insulin Human Lispro (Humalog Med) 0 units SC ACHS [facility] PRN Reason: Protocol Last Admin: 01/19/17 08:37 Dose: 3 units Ondansetron HCl (Zofran Inj) 4 mg IVP Q6H PRN PRN Reason: Nausea/Vomiting Polyethylene Glycol (Miralax) 17 gm PO BID [facility] Last Admin: 01/19/17 09:11 Dose: Not Given Silver Sulfadiazine (Silvadene 1% 25 Gm) 0 gm TP BID [facility] Last Admin: 01/18/17 19:00 Dose: 1 gm Tramadol HCl (Ultram) 50 mg PO TID PRN PRN Reason: Pain, moderate (4-7) Last Admin: 01/18/17 22:23 Dose: 50 mg - Labs Labs: 01/19/17 06:40 01/19/17 06:40 PT 12.7 SECONDS (9.4-12.5) H 01/19/17 06:40 INR 1.15 (0.93-1.08) H 01/19/17 06:40 APTT 34.6 Seconds (25.1-36.5) 01/19/17 06:40 - Constitutional Appears: Cachectic, Chronically Ill - Head Exam Head Exam: NORMAL INSPECTION - ENT Exam ENT Exam: Mucous Membranes Moist - Neck Exam Neck Exam: absent: Meningismus - Respiratory Exam Respiratory Exam: Decreased Breath Sounds - Cardiovascular Exam Cardiovascular Exam: +S1, +S2 - GI/Abdominal Exam GI & Abdominal Exam: Soft. absent: Tenderness Additional comments: abdominal drain in place Assessment and Plan - Assessment and Plan (Free Text) Plan: Assessment Systemic Inflammatory Response Syndrome, consider due to pancreatic / biliary malignancy; S/P EUS and percutaneous drain placement - grew C. albicans DM Plan S/P treatment with Diflucan for now - continue to monitor off antifungals and antibiotics Overall prognosis is poor; for port placement today will continue to follow clinically discussed with Dr. Bradley
[2017-01-19] MEDS ORDERED: cefTRIAXone 1 gm 1 GM/100 ML BAG IVPB STA (18:54)
[2017-01-19] MEDS: Insulin Detemir 100 units/ml Vial (Levemir) SC SCH (22:49)
[2017-01-20] MEDS: Insulin Lispro (humaLOG) MEDIUM Coverage SC SCH ×4 (06:58→22:23)
[2017-01-20 07:47] LABS: BASO # 0.04 K/mm3 (0.0-2.0); BASO % 0.2 % (0.0-3.0); EOS # 0.2 (0.0-0.7); EOS % 0.9 % (1.5-5.0); GRAN # 17.57 (1.4-6.5); GRAN % 88.4 % (50.0-68.0); HEMATOCRIT 30.5 % (42.0-52.0); LYMPH # 1.5 (1.2-3.4); LYMPH % 7.4 % (22.0-35.0); MEAN CELL VOLUME 102.7 fl (80.0-105.0); MEAN CORPUSCULAR HEMOGLOBIN 33.7 pg (25.0-35.0); MEAN CORPUSCULAR HGB CONC 32.8 g/dl (31.0-37.0); MEAN PLATELET VOLUME 10.8 fl (7.0-11.0); MONO # 0.6 (0.1-0.6); MONO % 3.1 % (1.0-6.0); RED CELL DISTRIBUTION WIDTH 16.2 % (11.5-14.5); WHITE BLOOD COUNT 19.9 10^3/ul (4.5-11.0)
[2017-01-20 07:57] LABS: ALB/GLOB RATIO 0.9 (1.1-1.8); ALKALINE PHOSPHATASE 309 U/L (38-126); ALT/SGPT 61 U/L (7-56); AMYLASE 40 U/L (35-125); AST/SGOT 45 U/L (17-59); BILIRUBIN,TOTAL 4.3 mg/dL (0.2-1.3); BLOOD UREA NITROGEN 20 mg/dL (7-21); CALCIUM 8.6 mg/dL (8.4-10.5); CARBON DIOXIDE 26 mmol/L (21-33); CHLORIDE 101 mmol/L (98-107); GFR AFRICAN-AMERICAN > 60; GLUCOSE,RANDOM 131 mg/dL (70-110); LIPASE 29 U/L (23-300); SODIUM 134 mmol/L (132-148)
[2017-01-20] MEDS: Amylase/Lipase/Protease 5,000 U ECC PO SCH ×3 (08:24→17:34)
--- NOTE | 2017-01-20 09:53 | CP.PCM.PN ---
Subjective - Date & Time of Evaluation Date of Evaluation: 01/20/17 Time of Evaluation: 09:50 - Subjective Subjective: Heme/Onc Progress Note for Elan Ibrahim PGY2 Patient seen and examined at bedside. As per nursing, there were no acute overnight events. Patient had a bare metal stent placed in common bile duct and is post op day #1. He tolerated the procedure well. He reports he has joint pain , especially in his R shoulder, but it is not new. He reports he only has mild abdominal pain to palpation. He had a BM prior to the procedure yesterday. He states he is going home today. He denies having fever/chills, chest pain, shortness of breath, numbness/tingling, nausea/vomiting/diarrhea or constipation. Objective - Vital Signs/Intake and Output Vital Signs (last 24 hours): Temp Pulse Resp BP Pulse Ox 96.9 F L 74 16 120/71 96 01/19/17 14:00 01/19/17 14:00 01/19/17 14:00 01/19/17 14:00 01/19/17 14:00 Intake and Output: 01/20/17 01/20/17 06:59 18:59 Intake Total 400 Output Total 900 Balance -500 - Medications Medications: Current Medications Acetaminophen (Tylenol 325mg Tab) 650 mg PO Q4H PRN PRN Reason: Pain, Mild (1-3) Last Admin: 01/19/17 22:51 Dose: 650 mg Amylase (Pancrease 05064 U-5000 U-18950 U) 5,000 u PO AC [facility] Last Admin: 01/20/17 08:24 Dose: 5,000 u Aspirin (Ecotrin) 81 mg PO DAILY [facility] Last Admin: 01/18/17 09:09 Dose: 81 mg Benzocaine/Menthol (Cepacol Sore Throat) 1 sveta MT BID PRN PRN Reason: Sore Throat Bisacodyl (Dulcolax) 5 mg PO DAILY PRN PRN Reason: Constipation Last Admin: 01/18/17 05:17 Dose: 5 mg Docusate Sodium (Colace) 100 mg PO BID [facility] Last Admin: 01/19/17 09:11 Dose: 100 mg Sodium Chloride (Sodium Chloride 0.9%) 1,000 mls @ 100 mls/hr IV .Q10H [facility] Last Admin: 01/19/17 08:38 Dose: 100 mls/hr Sodium Chloride (Sodium Chloride 0.9%) 1,000 mls @ 100 mls/hr IV .Q10H [facility] Sodium Chloride (Sodium Chloride 0.9%) 1,000 mls @ 75 mls/hr IV .[id number] [facility] Last Admin: 01/20/17 08:25 Dose: 75 mls/hr Insulin Detemir (Levemir) 14 unit SC HS [facility] Last Admin: 01/19/17 22:49 Dose: 14 unit Insulin Human Lispro (Humalog Med) 0 units SC ACHS [facility] PRN Reason: Protocol Last Admin: 01/20/17 06:58 Dose: 3 units Ondansetron HCl (Zofran Inj) 4 mg IVP Q6H PRN PRN Reason: Nausea/Vomiting Polyethylene Glycol (Miralax) 17 gm PO BID [facility] Last Admin: 01/19/17 09:11 Dose: Not Given Silver Sulfadiazine (Silvadene 1% 25 Gm) 0 gm TP BID [facility] Last Admin: 01/19/17 10:09 Dose: 25 gm Tramadol HCl (Ultram) 50 mg PO TID PRN PRN Reason: Pain, moderate (4-7) Last Admin: 01/20/17 05:33 Dose: 50 mg - Labs Labs: 01/20/17 07:00 01/20/17 07:00 PT 12.7 SECONDS (9.4-12.5) H 01/19/17 06:40 INR 1.15 (0.93-1.08) H 01/19/17 06:40 APTT 34.6 Seconds (25.1-36.5) 01/19/17 06:40 - Constitutional Appears: No Acute Distress - Head Exam Head Exam: ATRAUMATIC, NORMAL INSPECTION, NORMOCEPHALIC - Eye Exam Eye Exam: PERRL, Scleral icterus Pupil Exam: NORMAL ACCOMODATION, PERRL - ENT Exam ENT Exam: Mucous Membranes Moist - Neck Exam Neck Exam: Full ROM - Respiratory Exam Respiratory Exam: Clear to Ausculation Bilateral, NORMAL BREATHING PATTERN. absent: Rales, Rhonchi, Wheezes - Cardiovascular Exam Cardiovascular Exam: REGULAR RHYTHM, +S1, +S2. absent: Gallop, Rubs, Murmur - GI/Abdominal Exam GI & Abdominal Exam: Soft, Tenderness (mild diffuse ), Normal Bowel Sounds. absent: Rigid, Mass, Rebound Additional comments: dress in place- clean and dry - Extremities Exam Extremities Exam: Normal Inspection. absent: Calf Tenderness, Pedal Edema - Neurological Exam Neurological Exam: Alert, Awake, CN II-XII Intact, Oriented x3 - Psychiatric Exam Psychiatric exam: Normal Affect, Normal Mood - Skin Skin Exam: Dry, Warm. 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 Patient is status post internal and external biliary stent placement with drain which has been removed. He is post op day #1 for bare metal stent placement in the common bile duct. Plan: - Bilirubin level stable- may take up to 3 weeks to decrease - As per surgery- no intervention at this time- may do surgery on pancreatic head after chemotherapy as outpatient - Chemotherapy can begin bilirubin below 2.5 - Encouraged patient to intake more fluids to help increase his blood pressure upon d/c - Continue medical management as per IR and GI - Continue bowel regimen - Radiation/oncology consulted- recs appreciated - Recommend follow up with Dr. Bautista as outpatient upon discharge Case seen, discussed and reviewed with Dr. Michele Marroquin PGY2
[2017-01-20] MEDS: POLYETHYLENE GLYCOL 3350 17 GM/Dose PACKET PO SCH ×2 (10:03→17:31)
[2017-01-20] MEDS: Silver Sulfadiazine 1% Cream (25 gm) TP SCH ×2 (10:04→17:29)
[2017-01-20] MEDS: cefTRIAXone 1 gm 1 GM/100 ML BAG IVPB SCH (11:11)
--- NOTE | 2017-01-20 11:54 | PN ---
DATE: SUBJECTIVE: The patient is a 76-year-old male who was admitted to [facility] with painless jaundice. He was found to have adenocarcinoma of the head of the pancreas involving the ampulla. An external drainage stent was placed and the patient's total bilirubin and liver enzymes have improved. Seven days ago, the patient was transferred to the Transitional Care Unit where he has been doing well. When seen, he is awake, alert, and oriented, has no complaints. He feels himself getting stronger. He is eating well. His stools have darkened and his urine has whitened since his initial presentation to [facility]. Plans are for him to go for internalization of the biliary stent later on today. I believe he has scheduled for 2 p.m. Afterwards, the patient to be discharged home in the next day or two where we will continue to follow his liver functions as the total bilirubin today is 4.6. Other laboratories shows the white blood cell count to be 9.7, hemoglobin and hematocrit are 11.2 and 34.6. BUN and creatinine are 24 and 0.9 respectively. His vital signs are stable. The plan is as the total bilirubin falls to 2.5 or lower, the patient will be able to receive chemotherapy. At that point, he will present for a second, possible third surgical opinion for excision of the pancreatic mass. He has already been evaluated by Dr. Sen at [facility]. He is considering second and third opinion from surgeons at [facility] and [facility]. We will continue to follow the patient closely. Cody Jeff MD
[2017-01-20 12:10] VITALS: RESP 18
--- NOTE | 2017-01-20 13:33 | CP.PCM.PN ---
Subjective - Date & Time of Evaluation Date of Evaluation: 01/20/17 Time of Evaluation: 12:10 - Subjective Subjective: Had biliary stent placed yesterday. No fevers overnight. Objective - Vital Signs/Intake and Output Vital Signs (last 24 hours): Temp Pulse Resp BP Pulse Ox 96.9 F L 74 16 120/71 96 01/19/17 14:00 01/19/17 14:00 01/19/17 14:00 01/19/17 14:00 01/19/17 14:00 Intake and Output: 01/20/17 01/20/17 06:59 18:59 Intake Total 400 Output Total 900 Balance -500 - Medications Medications: Current Medications Acetaminophen (Tylenol 325mg Tab) 650 mg PO Q4H PRN PRN Reason: Pain, Mild (1-3) Last Admin: 01/19/17 22:51 Dose: 650 mg Amylase (Pancrease 86180 U-5000 U-62332 U) 5,000 u PO AC [facility] Last Admin: 01/19/17 17:05 Dose: Not Given Aspirin (Ecotrin) 81 mg PO DAILY [facility] Last Admin: 01/18/17 09:09 Dose: 81 mg Benzocaine/Menthol (Cepacol Sore Throat) 1 sveta MT BID PRN PRN Reason: Sore Throat Bisacodyl (Dulcolax) 5 mg PO DAILY PRN PRN Reason: Constipation Last Admin: 01/18/17 05:17 Dose: 5 mg Docusate Sodium (Colace) 100 mg PO BID [facility] Last Admin: 01/19/17 09:11 Dose: 100 mg Sodium Chloride (Sodium Chloride 0.9%) 1,000 mls @ 100 mls/hr IV .Q10H [facility] Last Admin: 01/19/17 08:38 Dose: 100 mls/hr Sodium Chloride (Sodium Chloride 0.9%) 1,000 mls @ 100 mls/hr IV .Q10H [facility] Sodium Chloride (Sodium Chloride 0.9%) 1,000 mls @ 75 mls/hr IV .[id number] [facility] Insulin Detemir (Levemir) 14 unit SC HS [facility] Last Admin: 01/19/17 22:49 Dose: 14 unit Insulin Human Lispro (Humalog Med) 0 units SC ACHS [facility] PRN Reason: Protocol Last Admin: 01/20/17 06:58 Dose: 3 units Ondansetron HCl (Zofran Inj) 4 mg IVP Q6H PRN PRN Reason: Nausea/Vomiting Polyethylene Glycol (Miralax) 17 gm PO BID [facility] Last Admin: 01/19/17 09:11 Dose: Not Given Silver Sulfadiazine (Silvadene 1% 25 Gm) 0 gm TP BID [facility] Last Admin: 01/19/17 10:09 Dose: 25 gm Tramadol HCl (Ultram) 50 mg PO TID PRN PRN Reason: Pain, moderate (4-7) Last Admin: 01/20/17 05:33 Dose: 50 mg - Labs Labs: 01/19/17 06:40 01/19/17 06:40 PT 12.7 SECONDS (9.4-12.5) H 01/19/17 06:40 INR 1.15 (0.93-1.08) H 01/19/17 06:40 APTT 34.6 Seconds (25.1-36.5) 01/19/17 06:40 - Constitutional Appears: Cachectic, Chronically Ill - Head Exam Head Exam: NORMAL INSPECTION - ENT Exam ENT Exam: Mucous Membranes Moist - Neck Exam Neck Exam: absent: Meningismus - Respiratory Exam Respiratory Exam: Decreased Breath Sounds - Cardiovascular Exam Cardiovascular Exam: +S1, +S2 - GI/Abdominal Exam GI & Abdominal Exam: Soft. absent: Tenderness Assessment and Plan - Assessment and Plan (Free Text) Plan: Assessment Systemic Inflammatory Response Syndrome, consider due to pancreatic / biliary malignancy; S/P EUS and percutaneous drain placement - grew C. albicans; S/P biliary stent placement POD #1 DM Plan S/P treatment with Diflucan for now - continue to monitor off antifungals and antibiotics Overall prognosis is poor will continue to follow clinically discussed with Dr. Bradley
--- NOTE | 2017-01-20 16:23 | CP.PCM.PN ---
<Elisa Campbell - Last Filed: 01/20/17 16:19> Subjective - Date & Time of Evaluation Date of Evaluation: 01/20/17 Time of Evaluation: 10:05 - Subjective Subjective: S&E at bedside, s/p stent exchange, patient denies fever, chilss, n/V, jsut complain of discomfort at IJEOMA where drain was removed, and left shoulder discomfort and joint discomfort,these has been ongoing prior to procedure. Tolerating oral intake, elevated WBC is noted this am, given dose of Rocephin yesterday preop. Objective - Vital Signs/Intake and Output Vital Signs (last 24 hours): Temp Pulse Resp BP Pulse Ox 97.6 F 71 18 96/61 L 95 01/20/17 10:00 01/20/17 10:00 01/20/17 10:00 01/20/17 10:00 01/20/17 10:00 Intake and Output: 01/20/17 01/20/17 06:59 18:59 Intake Total 400 Output Total 900 Balance -500 - Medications Medications: Current Medications Acetaminophen (Tylenol 325mg Tab) 650 mg PO Q4H PRN PRN Reason: Pain, Mild (1-3) Last Admin: 01/19/17 22:51 Dose: 650 mg Amylase (Pancrease 54429 U-5000 U-61475 U) 5,000 u PO [facility] Last Admin: 01/20/17 12:30 Dose: 5,000 u Aspirin (Ecotrin) 81 mg PO DAILY [facility] Last Admin: 01/20/17 10:02 Dose: 81 mg Benzocaine/Menthol (Cepacol Sore Throat) 1 sveta MT BID PRN PRN Reason: Sore Throat Bisacodyl (Dulcolax) 5 mg PO DAILY PRN PRN Reason: Constipation Last Admin: 01/18/17 05:17 Dose: 5 mg Docusate Sodium (Colace) 100 mg PO BID [facility] Last Admin: 01/20/17 10:01 Dose: 100 mg Ceftriaxone Sodium (Rocephin 1 Gram Ivpb) 1 gm in 100 mls @ 100 mls/hr IVPB DAILY [facility] [place] PRN Reason: Protocol Last Admin: 01/20/17 11:11 Dose: 100 mls/hr Insulin Detemir (Levemir) 14 unit SC [facility] Last Admin: 01/19/17 22:49 Dose: 14 unit Insulin Human Lispro (Humalog Med) 0 units SC ACHS [facility] PRN Reason: Protocol Last Admin: 01/20/17 12:30 Dose: Not Given Ondansetron HCl (Zofran Inj) 4 mg IVP Q6H PRN PRN Reason: Nausea/Vomiting Polyethylene Glycol (Miralax) 17 gm PO BID [facility] Last Admin: 01/20/17 10:03 Dose: 17 gm Silver Sulfadiazine (Silvadene 1% 25 Gm) 0 gm TP BID [facility] Last Admin: 01/20/17 10:04 Dose: 25 gm Tramadol HCl (Ultram) 50 mg PO TID PRN PRN Reason: Pain, moderate (4-7) Last Admin: 01/20/17 05:33 Dose: 50 mg - Labs Labs: 01/20/17 07:00 01/20/17 07:00 PT 12.7 SECONDS (9.4-12.5) H 01/19/17 06:40 INR 1.15 (0.93-1.08) H 01/19/17 06:40 APTT 34.6 Seconds (25.1-36.5) 01/19/17 06:40 - Constitutional Appears: No Acute Distress - Eye Exam Eye Exam: PERRL - ENT Exam ENT Exam: Mucous Membranes Moist - Respiratory Exam Respiratory Exam: Clear to Ausculation Bilateral, NORMAL BREATHING PATTERN (no respiratory distress) - Cardiovascular Exam Cardiovascular Exam: +S1, +S2 - GI/Abdominal Exam GI & Abdominal Exam: Soft, Normal Bowel Sounds Additional comments: LUQ dsg dry and intact, minimal tenderness on palpation at old drain site, no rebound or guarding. - Extremities Exam Additional comments: no edmena or calf tenderness - Neurological Exam Neurological Exam: Alert, Awake, Oriented x3 - Skin Skin Exam: Dry, Warm Assessment and Plan - Assessment and Plan (Free Text) Assessment: Assessment: Pancreatic head Adenocarcinoma Leukocytosis, maybe secondary to recent manipulation, but monitor for biliary leak, pt asymtomatic, will monitor Improving Obstructive jaundice Status post removal of internal and external biliary drain with insertion of Flex wall stent Weight loss History of diabetes mellitus Plan: continue diet to low-fat diet Trend LFTs continue IV antibiotics as per ID continue bowel regimen On pancreatic enzymes FU labs in am: cbc/cmp start Rocephin 1 gm daily discuss w/ PCP Seen and discussed with Dr. Bruce <Yomaira Bradley V - Last Filed: 01/20/17 23:11> Objective - Vital Signs/Intake and Output Vital Signs (last 24 hours): Temp Pulse Resp BP Pulse Ox 98.3 F 81 18 90/51 L 97 01/20/17 18:11 01/20/17 18:11 01/20/17 18:11 01/20/17 18:11 01/20/17 18:11 - Medications Medications: Current Medications Acetaminophen (Tylenol 325mg Tab) 650 mg PO Q4H PRN PRN Reason: Pain, Mild (1-3) Last Admin: 01/19/17 22:51 Dose: 650 mg Amylase (Pancrease 06234 U-5000 U-70101 U) 5,000 u PO AC [facility] Last Admin: 01/20/17 17:34 Dose: 5,000 u Aspirin (Ecotrin) 81 mg PO DAILY [facility] Last Admin: 01/20/17 10:02 Dose: 81 mg Benzocaine/Menthol (Cepacol Sore Throat) 1 sveta MT BID PRN PRN Reason: Sore Throat Bisacodyl (Dulcolax) 5 mg PO DAILY PRN PRN Reason: Constipation Last Admin: 01/18/17 05:17 Dose: 5 mg Docusate Sodium (Colace) 100 mg PO BID [facility] Last Admin: 01/20/17 17:30 Dose: 100 mg Ceftriaxone Sodium (Rocephin 1 Gram Ivpb) 1 gm in 100 mls @ 100 mls/hr IVPB DAILY [facility] PRN Reason: Protocol Last Admin: 01/20/17 11:11 Dose: 100 mls/hr Insulin Detemir (Levemir) 14 unit SC HS [facility] Last Admin: 01/20/17 22:32 Dose: 14 unit Insulin Human Lispro (Humalog Med) 0 units SC ACHS [facility] PRN Reason: Protocol Last Admin: 01/20/17 22:23 Dose: Not Given Ondansetron HCl (Zofran Inj) 4 mg IVP Q6H PRN PRN Reason: Nausea/Vomiting Polyethylene Glycol (Miralax) 17 gm PO BID [facility] Last Admin: 01/20/17 17:31 Dose: 17 gm Silver Sulfadiazine (Silvadene 1% 25 Gm) 0 gm TP BID [facility] Last Admin: 01/20/17 17:29 Dose: 1 gm Tramadol HCl (Ultram) 50 mg PO TID PRN PRN Reason: Pain, moderate (4-7) Last Admin: 01/20/17 21:13 Dose: 50 mg - Labs Labs: 01/20/17 07:00 01/20/17 07:00 PT 12.7 SECONDS (9.4-12.5) H 01/19/17 06:40 INR 1.15 (0.93-1.08) H 01/19/17 06:40 APTT 34.6 Seconds (25.1-36.5) 01/19/17 06:40 Attending/Attestation - Attestation I have personally seen and examined this patient.: Yes I have fully participated in the care of the patient.: Yes I have reviewed all pertinent clinical information, including history, physical exam and plan: Yes Notes (Text): This is an addendum to GI progress report dictated by Elisa Campbell APN.The patient was seen and examined earlier. Medical records, lab studies, imagings were reviewed. Last 24 hours events reviewed. Agreed with the above treatment plan as outlined in Elisa Campbell APN's notes the with the addition of the following on examination abdomen was soft no tenderness previous DTC site drainage was minimal. Patient is tolerating diet Renal concern is increased white cell count. Presently on antibiotics We'll repeat the CBC in a.m. Discussed with the Dr. Rehan Jeff 01/20/17 23:09
[2017-01-20 18:11] VITALS: BP 90/51; PULSE 81; TEMP 98.3
[2017-01-20 18:20] VITALS: O2SAT 97
[2017-01-20] MEDS: Insulin Detemir 100 units/ml Vial (Levemir) SC SCH (22:32)
[2017-01-21] MEDS: Insulin Lispro (humaLOG) MEDIUM Coverage SC SCH ×2 (06:52→12:30)
[2017-01-21 07:16] LABS: BASO # 0.05 K/mm3 (0.0-2.0); BASO % 0.4 % (0.0-3.0); EOS # 0.6 (0.0-0.7); EOS % 4.9 % (1.5-5.0); GRAN # 9.76 (1.4-6.5); GRAN % 79.1 % (50.0-68.0); HEMATOCRIT 30.2 % (42.0-52.0); LYMPH # 1.2 (1.2-3.4); LYMPH % 9.3 % (22.0-35.0); MEAN CELL VOLUME 103.8 fl (80.0-105.0); MEAN CORPUSCULAR HEMOGLOBIN 33.7 pg (25.0-35.0); MEAN CORPUSCULAR HGB CONC 32.5 g/dl (31.0-37.0); MEAN PLATELET VOLUME 10.6 fl (7.0-11.0); MONO # 0.8 (0.1-0.6); MONO % 6.3 % (1.0-6.0); WHITE BLOOD COUNT 12.4 10^3/ul (4.5-11.0)
[2017-01-21 07:38] LABS: ALKALINE PHOSPHATASE 285 U/L (38-126); ALT/SGPT 53 U/L (7-56); AST/SGOT 34 U/L (17-59); BILIRUBIN,TOTAL 3.9 mg/dL (0.2-1.3); BLOOD UREA NITROGEN 18 mg/dL (7-21); CALCIUM 8.9 mg/dL (8.4-10.5); CARBON DIOXIDE 27 mmol/L (21-33); CHLORIDE 102 mmol/L (98-107); GFR AFRICAN-AMERICAN > 60; GLUCOSE,RANDOM 143 mg/dL (70-110); POTASSIUM 4.4 mmol/L (3.6-5.0); SODIUM 137 mmol/L (132-148)
[2017-01-21] MEDS ORDERED: Sodium Chloride 0.9% 500 ML IV STA (07:41)
[2017-01-21] MEDS: Amylase/Lipase/Protease 5,000 U ECC PO SCH ×2 (08:30→12:30)
[2017-01-21] MEDS: Silver Sulfadiazine 1% Cream (25 gm) TP SCH (09:26)
[2017-01-21] MEDS: POLYETHYLENE GLYCOL 3350 17 GM/Dose PACKET PO SCH (09:29)
--- NOTE | 2017-01-21 09:55 | CP.PCM.PN ---
Subjective - Date & Time of Evaluation Date of Evaluation: 01/21/17 Time of Evaluation: 09:51 - Subjective Subjective: Heme/Onc Progress Note for Elan Ibrahim PGY2 Patient seen and examined at bedside. As per nursing there were no acute overnight events. Patient reports feeling well today and ready to go home. He had 2 soft BM yesterday without any issues or blood/dark in color. He denies chest pain, shortness of breath, abdominal pain, nausea/vomiting, diarrhea, numbness/tingling, fever/chills or dysuria. Objective - Vital Signs/Intake and Output Vital Signs (last 24 hours): Temp Pulse Resp BP Pulse Ox 98.3 F 81 18 90/51 L 97 01/20/17 18:11 01/20/17 18:11 01/20/17 18:11 01/20/17 18:11 01/20/17 18:11 Intake and Output: 01/21/17 01/21/17 06:59 18:59 Intake Total 520 Balance 520 - Medications Medications: Current Medications Acetaminophen (Tylenol 325mg Tab) 650 mg PO Q4H PRN PRN Reason: Pain, Mild (1-3) Last Admin: 01/19/17 22:51 Dose: 650 mg Amylase (Pancrease 13972 U-5000 [id number] U) 5,000 u PO AC [facility] Last Admin: 01/21/17 08:30 Dose: 5,000 u Aspirin (Ecotrin) 81 mg PO DAILY [facility] Last Admin: 01/21/17 09:30 Dose: 81 mg Benzocaine/Menthol (Cepacol Sore Throat) 1 sveta MT BID PRN PRN Reason: Sore Throat Bisacodyl (Dulcolax) 5 mg PO DAILY PRN PRN Reason: Constipation Last Admin: 01/18/17 05:17 Dose: 5 mg Docusate Sodium (Colace) 100 mg PO BID [facility] Last Admin: 01/21/17 09:28 Dose: 100 mg Ceftriaxone Sodium (Rocephin 1 Gram Ivpb) 1 gm in 100 mls @ 100 mls/hr IVPB DAILY [facility] PRN Reason: Protocol Last Admin: 01/20/17 11:11 Dose: 100 mls/hr Insulin Detemir (Levemir) 14 unit SC [facility] Last Admin: 01/20/17 22:32 Dose: 14 unit Insulin Human Lispro (Humalog Med) 0 units SC ACHS [facility] PRN Reason: Protocol Last Admin: 01/21/17 06:52 Dose: 3 units Ondansetron HCl (Zofran Inj) 4 mg IVP Q6H PRN PRN Reason: Nausea/Vomiting Polyethylene Glycol (Miralax) 17 gm PO BID [facility] Last Admin: 01/21/17 09:29 Dose: 17 gm Silver Sulfadiazine (Silvadene 1% 25 Gm) 0 gm TP BID [facility] Last Admin: 01/21/17 09:26 Dose: 1 gm Tramadol HCl (Ultram) 50 mg PO TID PRN PRN Reason: Pain, moderate (4-7) Last Admin: 01/21/17 06:56 Dose: 50 mg - Labs Labs: 01/21/17 06:50 01/21/17 06:50 PT 12.7 SECONDS (9.4-12.5) H 01/19/17 06:40 INR 1.15 (0.93-1.08) H 01/19/17 06:40 APTT 34.6 Seconds (25.1-36.5) 01/19/17 06:40 - Constitutional Appears: No Acute Distress - Head Exam Head Exam: ATRAUMATIC, NORMAL INSPECTION, NORMOCEPHALIC - Eye Exam Eye Exam: PERRL, Scleral icterus Pupil Exam: NORMAL ACCOMODATION, PERRL - ENT Exam ENT Exam: Mucous Membranes Moist - Neck Exam Neck Exam: Full ROM - Respiratory Exam Respiratory Exam: Clear to Ausculation Bilateral, NORMAL BREATHING PATTERN. absent: Rales, Rhonchi, Wheezes - Cardiovascular Exam Cardiovascular Exam: REGULAR RHYTHM, +S1, +S2. absent: Gallop, Rubs, Murmur - GI/Abdominal Exam GI & Abdominal Exam: Soft, Normal Bowel Sounds. absent: Rigid, Tenderness, Rebound - Extremities Exam Extremities Exam: Normal Inspection. 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 Patient is status post internal and external biliary stent placement with drain which has been removed. He is post op day #2 for bare metal stent placement in the common bile duct. Plan: - Bilirubin slowly trending down- may take up to 3 weeks to decrease - Will continue to monitor bilirubin as outpatient and start chemo once it is below 2.5 - Surgery consulted and reports no intervention at this time- may do surgery on pancreatic head after chemotherapy as outpatient - Encouraged patient to intake more fluids to help increase his blood pressure at home - Give one IV bolus this AM - Continue bowel regimen - Leukocytosis trending down without overt signs of infection (afebrile)- can be reactive from stent placement - Patient will be d/c today- Recommend follow up with Dr. Bautista as outpatient upon discharge Case seen, discussed and reviewed with Dr. Michele Marroquin PGY2
[2017-01-21] MEDS: cefTRIAXone 1 gm 1 GM/100 ML BAG IVPB SCH (10:58)
--- NOTE | 2017-01-21 12:57 | CP.PCM.PN ---
Subjective - Date & Time of Evaluation Date of Evaluation: 01/21/17 Time of Evaluation: 08:15 - Subjective Subjective: S&E at bedside, no acute overnight events. No new complaints, wants to go home today. Having formed BM, no bleeding. Denies abdominal pain. Reported usual generalized body aches. Tolerating oral intake. Objective - Vital Signs/Intake and Output Vital Signs (last 24 hours): Temp Pulse Resp BP Pulse Ox 98.3 F 81 18 90/51 L 97 01/20/17 18:11 01/20/17 18:11 01/20/17 18:11 01/20/17 18:11 01/20/17 18:11 Intake and Output: 01/21/17 01/21/17 06:59 18:59 Intake Total 520 Balance 520 - Medications Medications: Current Medications Acetaminophen (Tylenol 325mg Tab) 650 mg PO Q4H PRN PRN Reason: Pain, Mild (1-3) Last Admin: 01/19/17 22:51 Dose: 650 mg Amylase (Pancrease 86881 U-5000 U-[id number] U) 5,000 u PO AC [facility] Last Admin: 01/21/17 08:30 Dose: 5,000 u Aspirin (Ecotrin) 81 mg PO DAILY [facility] Last Admin: 01/21/17 09:30 Dose: 81 mg Benzocaine/Menthol (Cepacol Sore Throat) 1 sveta MT BID PRN PRN Reason: Sore Throat Bisacodyl (Dulcolax) 5 mg PO DAILY PRN PRN Reason: Constipation Last Admin: 01/18/17 05:17 Dose: 5 mg Docusate Sodium (Colace) 100 mg PO BID [facility] Last Admin: 01/21/17 09:28 Dose: 100 mg Ceftriaxone Sodium (Rocephin 1 Gram Ivpb) 1 gm in 100 mls @ 100 mls/hr IVPB DAILY [facility] PRN Reason: Protocol Last Admin: 01/21/17 10:58 Dose: 100 mls/hr Insulin Detemir (Levemir) 14 unit SC HS [facility] Last Admin: 01/20/17 22:32 Dose: 14 unit Insulin Human Lispro (Humalog Med) 0 units SC ACHS [facility] PRN Reason: Protocol Last Admin: 01/21/17 06:52 Dose: 3 units Ondansetron HCl (Zofran Inj) 4 mg IVP Q6H PRN PRN Reason: Nausea/Vomiting Polyethylene Glycol (Miralax) 17 gm PO BID [facility] Last Admin: 01/21/17 09:29 Dose: 17 gm Silver Sulfadiazine (Silvadene 1% 25 Gm) 0 gm TP BID [facility] Last Admin: 01/21/17 09:26 Dose: 1 gm Tramadol HCl (Ultram) 50 mg PO TID PRN PRN Reason: Pain, moderate (4-7) Last Admin: 01/21/17 06:56 Dose: 50 mg - Labs Labs: 01/21/17 06:50 01/21/17 06:50 PT 12.7 SECONDS (9.4-12.5) H 01/19/17 06:40 INR 1.15 (0.93-1.08) H 01/19/17 06:40 APTT 34.6 Seconds (25.1-36.5) 01/19/17 06:40 - Constitutional Appears: No Acute Distress - Eye Exam Eye Exam: Normal appearance - ENT Exam ENT Exam: Mucous Membranes Moist - Respiratory Exam Respiratory Exam: NORMAL BREATHING PATTERN. absent: Respiratory Distress - Cardiovascular Exam Cardiovascular Exam: +S1, +S2 - GI/Abdominal Exam GI & Abdominal Exam: Soft, Normal Bowel Sounds. absent: Guarding, Tenderness, Organomegaly, Rebound - Extremities Exam Extremities Exam: absent: Calf Tenderness, Pedal Edema - Neurological Exam Neurological Exam: Alert, Awake, Oriented x3 - Skin Skin Exam: Dry, Warm Assessment and Plan - Assessment and Plan (Free Text) Assessment: Assessment: Pancreatic head Adenocarcinoma Leukocytosis, maybe secondary to recent manipulation, but monitor for biliary leak, pt asymtomatic,WBC, show adownward trend Improving Obstructive jaundice Status post removal of internal and external biliary drain with insertion of Flex wall stent Weight loss History of diabetes mellitus Plan: continue diet to low-fat diet Trend LFTs continue bowel regimen On pancreatic enzymes FU labs in am: cbc/cmp on Rocephin 1 gm daily IV On DC recommend to complete a course of antibiotics, discuss w/ patient earlier : RX written for : CIpro 250 mg [id number] & Flagyl 250mg QIDX5 days, gave to [facility] oncology/surgical FU outpatient Seen and discussed with Dr. Bruce
--- NOTE | 2017-01-21 13:07 | CP.PCM.PN ---
Subjective - Date & Time of Evaluation Date of Evaluation: 01/21/17 Time of Evaluation: 11:05 - Subjective Subjective: Comfortable in bed, no fevers overnight, no diarrhea, no nausea, no abdominal pain. Objective - Vital Signs/Intake and Output Vital Signs (last 24 hours): Temp Pulse Resp BP Pulse Ox 98.3 F 81 18 90/51 L 97 01/20/17 18:11 01/20/17 18:11 01/20/17 18:11 01/20/17 18:11 01/20/17 18:11 Intake and Output: 01/21/17 01/21/17 06:59 18:59 Intake Total 520 Balance 520 - Medications Medications: Current Medications Acetaminophen (Tylenol 325mg Tab) 650 mg PO Q4H PRN PRN Reason: Pain, Mild (1-3) Last Admin: 01/19/17 22:51 Dose: 650 mg Amylase (Pancrease 28940 U-5000 U-38111 U) 5,000 u PO AC [facility] Last Admin: 01/20/17 17:34 Dose: 5,000 u Aspirin (Ecotrin) 81 mg PO DAILY [facility] Last Admin: 01/20/17 10:02 Dose: 81 mg Benzocaine/Menthol (Cepacol Sore Throat) 1 sveta MT BID PRN PRN Reason: Sore Throat Bisacodyl (Dulcolax) 5 mg PO DAILY PRN PRN Reason: Constipation Last Admin: 01/18/17 05:17 Dose: 5 mg Docusate Sodium (Colace) 100 mg PO BID [facility] Last Admin: 01/20/17 17:30 Dose: 100 mg Ceftriaxone Sodium (Rocephin 1 Gram Ivpb) 1 gm in 100 mls @ 100 mls/hr IVPB DAILY [facility] PRN Reason: Protocol Last Admin: 01/20/17 11:11 Dose: 100 mls/hr Insulin Detemir (Levemir) 14 unit SC HS [facility] Last Admin: 01/20/17 22:32 Dose: 14 unit Insulin Human Lispro (Humalog Med) 0 units SC ACHS [facility] PRN Reason: Protocol Last Admin: 01/21/17 06:52 Dose: 3 units Ondansetron HCl (Zofran Inj) 4 mg IVP Q6H PRN PRN Reason: Nausea/Vomiting Polyethylene Glycol (Miralax) 17 gm PO BID [facility] Last Admin: 01/20/17 17:31 Dose: 17 gm Silver Sulfadiazine (Silvadene 1% 25 Gm) 0 gm TP BID [facility] Last Admin: 01/20/17 17:29 Dose: 1 gm Tramadol HCl (Ultram) 50 mg PO TID PRN PRN Reason: Pain, moderate (4-7) Last Admin: 01/21/17 06:56 Dose: 50 mg - Labs Labs: 01/21/17 06:50 01/21/17 06:50 PT 12.7 SECONDS (9.4-12.5) H 01/19/17 06:40 INR 1.15 (0.93-1.08) H 01/19/17 06:40 APTT 34.6 Seconds (25.1-36.5) 01/19/17 06:40 - Constitutional Appears: Non-toxic, No Acute Distress - Head Exam Head Exam: NORMAL INSPECTION - ENT Exam ENT Exam: Mucous Membranes Moist - Neck Exam Neck Exam: absent: Lymphadenopathy, Meningismus - Respiratory Exam Respiratory Exam: Decreased Breath Sounds - Cardiovascular Exam Cardiovascular Exam: +S1, +S2 - GI/Abdominal Exam GI & Abdominal Exam: Soft. absent: Tenderness Assessment and Plan - Assessment and Plan (Free Text) Plan: Assessment Systemic Inflammatory Response Syndrome, consider due to pancreatic / biliary malignancy; S/P EUS and percutaneous drain placement - grew C. albicans; S/P biliary stent placement POD #2 DM Plan S/P treatment with Diflucan for now - continue to monitor off antifungals and antibiotics Overall prognosis is poor
== END 2017-01-21 14:24 | disposition home or self-care (01) | DRG 435 ==
LOC: TRCU 17:48
PROVIDERS: ADMIT Internal Medicine; ATTEND Internal Medicine
PROC: F07Z9FZ Gait Training/Functional Ambulation Treatment using Assistive, Adaptive, Supportive or Protective Equipment (ICD-10-PCS; principal; 2017-01-14)
PROC: F07Z8FZ Transfer Training Treatment using Assistive, Adaptive, Supportive or Protective Equipment (ICD-10-PCS; 2017-01-14)
PROC: F08Z1FZ Dressing Techniques Treatment using Assistive, Adaptive, Supportive or Protective Equipment (ICD-10-PCS; 2017-01-14)
PROC: F08Z2FZ Grooming/Personal Hygiene Treatment using Assistive, Adaptive, Supportive or Protective Equipment (ICD-10-PCS; 2017-01-14)
PROC: F07Z5ZZ Bed Mobility Treatment (ICD-10-PCS; 2017-01-15)
PROC: F07L6ZZ Therapeutic Exercise Treatment of Musculoskeletal System - Lower Back / Lower Extremity (ICD-10-PCS; 2017-01-17)
DX: C25.0 Malignant neoplasm of head of pancreas (principal); K83.1 Obstruction of bile duct; R64 Cachexia; R65.10 Systemic inflammatory response syndrome (SIRS) of non-infectious origin without acute organ dysfunction; E11.9 Type 2 diabetes mellitus without complications; R62.7 Adult failure to thrive; Z96.0 Presence of urogenital implants; Z79.4 Long term (current) use of insulin; Z68.23 Body mass index [BMI] 23.0-23.9, adult; Z87.891 Personal history of nicotine dependence

== ENCOUNTER 2017-01-19 13:21 | Day surgery (SDC) | payer MEDICARE ==
[2017-01-19 14:48] VITALS: BMI 22.9
[2017-01-19] MEDS ORDERED: Indomethacin 50 MG Suppository PR ONE (14:51)
[2017-01-19] MEDS ORDERED: Iohexol 240 (50 ml) ONE (14:53)
[2017-01-19] MEDS ORDERED: Etomidate 20 mg/10ml Inj IV ONE (14:55)
[2017-01-19] MEDS ORDERED: Succinylcholine 200 mg/10 ml Inj IV ONE (14:56)
[2017-01-19] MEDS ORDERED: Phenylephrine 10 mg/ml Inj ONE (16:58)
[2017-01-19] MEDS ORDERED: Sodium Chloride 0.9% 1,000 ML IV SCH (17:58)
[2017-01-19 18:41] VITALS: TEMP 97.4
[2017-01-19 18:53] VITALS: O2SAT 98
[2017-01-19] MEDS ORDERED: cefTRIAXone (Rocephin) 1 gm Inj ONE (18:56)
[2017-01-19] MEDS ORDERED: cefTRIAXone 1 gm 1 GM/100 ML BAG IVPB STA (19:00)
[2017-01-19] MEDS ORDERED: cefTRIAXone (Rocephin) 1 gm Inj IVPB ONE (19:10)
[2017-01-19 19:28] VITALS: BP 128/70; PULSE 73; RESP 20
--- NOTE | 2017-01-20 13:52 | RAD ---
PROCEDURE: ERCP HISTORY: STENT REMOVAL / AND / INSERTION COMPARISON: TECHNIQUE: Fluoroscopy was provided in the endoscopy suite. 374 seconds of fluoro time were used. Seven images submitted FINDINGS: The study shows placement of a mesh common duct stent. IMPRESSION: As above
== END 2017-01-19 19:56 ==
LOC: ENDO 13:21
PROVIDERS: ATTEND Internal Medicine Gastroenterology
DX: K83.1 Obstruction of bile duct (principal); C25.0 Malignant neoplasm of head of pancreas

== ENCOUNTER 2017-02-07 04:00 | Inpatient (IN) | payer MEDICARE, OTHER ==
[2017-02-07 04:07] VITALS: BMI 24.7
[2017-02-07] MEDS ORDERED: Morphine 4 mg/ml ISec IVP STA (04:14)
--- NOTE | 2017-02-07 04:17 | ED PDOC ---
Arrival/HPI - General Chief Complaint: Hip Pain Time Seen by Provider: 02/07/17 04:06 - History of Present Illness Narrative History of Present Illness (Text): 02/07/17 04:07 Jemal Ibarra is a 76 year old male, whose past medical history includes diabetes and pancreatic cancer, who presents to the emergency department complaining of possible left hip pain after rolling of out of bed in the middle of the night and landing on his left side prior to arrival. Patient denies any head injury, loss consciousness, or any other complaints at this time. PMD: Dr. Jeff Time/Duration: Prior to Arrival Symptom Onset: Sudden Activities at Onset: Rest Context: Home Past Medical History - Provider Review Nursing Documentation Reviewed: Yes - Past History Past History: Non-Contributing - Infectious Disease Hx of Infectious Diseases: None - Tetanus Immunization Tetanus Immunization: Unknown - Past Medical History Past Medical History: Non-Contributing - Cardiac Hx Pacemaker: No Other/Comment: triple bypass 6yrs - Pulmonary Hx Respiratory Disorders: No - Neurological Hx Neurological Disorder: No Hx Paralysis: No - HEENT Hx HEENT Disorder: No - Renal Hx Renal Disorder: No - Endocrine/Metabolic Hx Diabetes Mellitus Type 1: Yes - Hematological/Oncological Hx Blood Disorders: No Hx Blood Transfusions: No Hx Blood Transfusion Reaction: No - Integumentary Hx Dermatological Disorder: No - Musculoskeletal/Rheumatological Hx Musculoskeletal Disorders: No - Gastrointestinal Hx Gastrointestinal Disorders: No - Genitourinary/Gynecological Hx Genitourinary Disorders: No Hx Reproductive Disorders: No - Psychiatric Hx Psychophysiologic Disorder: No Hx Depression: No Hx Emotional Abuse: No Hx Physical Abuse: No Hx Substance Use: No - Surgical History Other/Comment: triple bypass 6yrs ago - Anesthesia Hx Anesthesia Reactions: No Hx Malignant Hyperthermia: No - Suicidal Assessment Feels Threatened In Home Enviroment: No Family/Social History - Physician Review Nursing Documentation Reviewed: Yes Family/Social History: No Known Family HX Smoking Status: Former Smoker Hx Alcohol Use: No Hx Substance Use: No Hx Substance Use Treatment: No Allergies/Home Meds Allergies/Adverse Reactions: Allergies No Known Allergies Allergy (Verified 02/07/17 04:09) Home Medications: Home Meds Medication Instructions Recorded Confirmed Amylase/Lipase/Protease [Pancrease 5,000 u PO ACBD 02/07/17 02/07/17 76501 U-5000 [id number] U] Furosemide [Lasix] 20 mg PO DAILY 02/07/17 02/07/17 Review of Systems - Review of Systems Constitutional: absent: Weight Change, Fevers Eyes: absent: Vision Changes ENT: absent: Hearing Changes Respiratory: absent: SOB, Cough Cardiovascular: absent: Chest Pain Gastrointestinal: absent: Appetite Changes Genitourinary Male: absent: Dysuria, Frequency Musculoskeletal: Arthralgias (L hip pain) Skin: absent: Rash, Pruritis Neurological: absent: Headache, Dizziness Endocrine: absent: Diaphoresis Hemo/Lymphatic: absent: Adenopathy Physical Exam Vital Signs Temp Pulse Resp BP Pulse Ox 02/07/17 05:30 98.9 F 71 18 94/55 L 99 02/07/17 04:08 81 18 96/55 L 100 Temperature: Afebrile Blood Pressure: Normal Pulse: Regular Respiratory Rate: Normal Appearance: Positive for: Non-Toxic Pain Distress: Moderate Mental Status: Positive for: Alert and Oriented X 3 - Systems Exam Head: Present: Atraumatic, Normocephalic Pupils: Present: PERRL Conjunctiva: Present: Normal Mouth: Present: Moist Mucous Membranes Pharnyx: Present: Normal. No: ERYTHEMA, EXUDATE Neck: Present: Normal Range of Motion Respiratory/Chest: Present: Decreased Breath Sounds (Diminished breath sounds on lungs bilaterally) Cardiovascular: Present: Regular Rate and Rhythm, Murmurs, Normal S1, S2 Abdomen: Present: Normal Bowel Sounds. No: Tenderness, Distention, Peritoneal Signs Back: Present: Normal Inspection Upper Extremity: Present: Normal Inspection. No: Cyanosis, Edema Lower Extremity: Present: Edema (Trace edema bilaterally), Other (ttp lateral left hip; the left leg is shortened and partly internally rotated.) Neurological: Present: GCS=15, CN II-XII Intact, Speech Normal Skin: Present: Warm, Dry, Normal Color. No: Rashes Psychiatric: Present: Alert, Oriented x 3, Normal Insight, Normal Concentration Medical Decision Making ED Course and Treatment: 02/07/17 04:24 Impression: 76 year old male complaining of possible lower extremity injury after rolling of out of bed and landing on his left side prior to arrival. Differential Diagnosis included but are not limited to: L hip fracture vs dislocation Plan: -- EKG -- Chest X-ray -- Left Hip X-ray -- Type and Screen -- Urinalysis -- Labs -- Morphine -- Reassess and disposition Prior Visits: Notes and results from previous visits were reviewed. Patient last seen in the ED on 01/03/17 for jaundice and pancreatic mass noted on abdominal CT, as well as glucose of 500+. Patient was admitted to hospitalist care for further evaluation. Progress Notes: 02/07/17 05:48 Patient with noted history with injury to the left hip; x-ray shows a fracture. Will need to be admitted for ortho eval and possible surgery. Case discussed with Dr. Jeff for admission. Case discussed with Dr. Benítez for ortho consult; he requested CT hip, the result of which will be followed by him. - Lab Interpretations Lab Results: 02/07/17 04:38 02/07/17 04:38 Lab Results 02/07/17 05:23: POC Glucose (mg/dL) 46 L 02/07/17 04:38: Blood Type Pending, Antibody Screen Pending, BBK History Checked Patient has bt 02/07/17 04:38: Sodium 130 L, Potassium 3.3 L, Chloride 97 L, Carbon Dioxide 29 , Anion Gap 7 L, BUN 27 H, Creatinine 0.9, Est GFR ( Amer) > 60, Est GFR (Non-Af Amer) > 60, Random Glucose 47 L* D, Calcium 8.8, Total Bilirubin 2.2 H, AST 162 H D, ALT 128 H, Alkaline Phosphatase 226 H D, Lactate Dehydrogenase 710 H, Total Creatine Kinase 207, Troponin I < 0.01, Total Protein 6.0, Albumin 3.2 , Globulin 2.9, Albumin/Globulin Ratio 1.1, Amylase 67, Lipase 32 02/07/17 04:38: PT 12.0, INR 1.10 H, APTT 31.5 02/07/17 04:38: WBC 11.2 H, RBC 3.08 L, Hgb 10.4 L, Hct 30.8 L, MCV 100.0 D, MCH 33.8, MCHC 33.8, RDW 14.2, Plt Count 243, MPV 10.7, Gran % 89.2 H, Lymph % ( Auto) 4.5 L, [place] % (Auto) 4.9, Eos % (Auto) 1.2 L, Baso % (Auto) 0.2, Gran # 10.00 H, Lymph # 0.5 L, [place] # 0.6, Eos # 0.1, Baso # 0.02, Neutrophils % ( Manual) Pending, Lymphocytes % (Manual) Pending, Monocytes % (Manual) Pending I have reviewed the lab results: Yes - RAD Interpretation Radiology Orders: 02/07/17 04:16 CHEST TWO VIEWS (PA/LAT) [RAD] Stat Hip Left [HIP MIN 4V W/ PELVIS LT] [RAD] Stat 02/07/17 05:34 HIP WITHOUT CONTRAST LEFT [CT] Stat - EKG Interpretation EKG Interpretation (Text): 02/07/17 05:46 NSR @76 with RBBB with LAD, bifascicular block; inferior Q waves; no new ST/T changes c/w 01/03/17. Interpreted by ED Physician: Yes Type: 12 lead EKG Comparison: Similar to previous EKG - Medication Orders Current Medication Orders: Discontinued Medications Dextrose (Dextrose 50% Inj) 50 ml IVP STAT STA Stop: 02/07/17 05:27 Last Admin: 02/07/17 05:27 Dose: Morphine Sulfate (Morphine) 4 mg IVP STAT STA Stop: 02/07/17 04:15 Last Admin: 02/07/17 04:41 Dose: 4 mg MAR Pain Assessment Document 02/07/17 04:41 KATHRIN (Rec: 02/07/17 04:41 KATHRIN [id number]) Pain Reassessment Is this a pain reassessment? No IVP Administration Document 02/07/17 04:41 KATHRIN (Rec: 02/07/17 04:41 KATHRIN [id number]) Charges for Administration # of IVP Administrations 1 - Scribe Statement The provider has reviewed the documentation as recorded by the Jamie Reilly Provider Scribe Attestation: All medical record entries made by the Scribe were at my direction and personally dictated by me. I have reviewed the chart and agree that the record accurately reflects my personal performance of the history, physical exam, medical decision making, and the department course for this patient. I have also personally directed, reviewed, and agree with the discharge instructions and disposition. Disposition/Present on Arrival - Present on Arrival Any Indicators Present on Arrival: Yes History of DVT/PE: No History of Uncontrolled Diabetes: Yes Urinary Catheter: No History of Decub. Ulcer: No History Surgical Site Infection Following: None - Disposition Have Diagnosis and Disposition been Completed?: Yes Diagnosis: Hip fracture, left Disposition: HOSPITALIZED Disposition Time: 04:50 Patient Plan: Admission Patient Problems: Current Active Problems Problem Status Onset Hip fracture, left Acute Condition: FAIR Forms: [employer] (Czech)
[2017-02-07 05:04] LABS: ALB/GLOB RATIO 1.1 (1.1-1.8); ALKALINE PHOSPHATASE 226 U/L (38-126); ALT/SGPT 128 U/L (7-56); AMYLASE 67 U/L (35-125); AST/SGOT 162 U/L (17-59); BILIRUBIN,TOTAL 2.2 mg/dL (0.2-1.3); BLOOD UREA NITROGEN 27 mg/dL (7-21); CALCIUM 8.8 mg/dL (8.4-10.5); CARBON DIOXIDE 29 mmol/L (21-33); CHLORIDE 97 mmol/L (98-107); GFR AFRICAN-AMERICAN > 60; LIPASE 32 U/L (23-300); POTASSIUM 3.3 mmol/L (3.6-5.0); SODIUM 130 mmol/L (132-148)
[2017-02-07 05:08] LABS: BASO # 0.02 K/mm3 (0.0-2.0); BASO % 0.2 % (0.0-3.0); EOS # 0.1 (0.0-0.7); EOS % 1.2 % (1.5-5.0); GRAN % 89.2 % (50.0-68.0); HEMATOCRIT 30.8 % (42.0-52.0); LYMPH # 0.5 (1.2-3.4); LYMPH % 4.5 % (22.0-35.0); MEAN CORPUSCULAR HEMOGLOBIN 33.8 pg (25.0-35.0); MEAN CORPUSCULAR HGB CONC 33.8 g/dl (31.0-37.0); MEAN PLATELET VOLUME 10.7 fl (7.0-11.0); MONO # 0.6 (0.1-0.6); MONO % 4.9 % (1.0-6.0); PLATELET COUNT 243 10^3/uL (120.0-450.0); RED CELL DISTRIBUTION WIDTH 14.2 % (11.5-14.5); WHITE BLOOD COUNT 11.2 10^3/ul (4.5-11.0)
[2017-02-07 05:11] LABS: INR 1.1 (0.93-1.08); PARTIAL THROMBOPLASTIN TIME 31.5 Seconds (25.1-36.5)
[2017-02-07 05:20] LABS: TROPONIN I < 0.01 ng/mL
[2017-02-07 05:22] LABS: GLUCOSE,RANDOM 47 mg/dL (70-110)
[2017-02-07] MEDS ORDERED: Dextrose 50% SYRINGE Inj (50 ml) ONE (05:25)
[2017-02-07] MEDS ORDERED: Dextrose 50% SYRINGE Inj (50 ml) IVP STA (05:26)
[2017-02-07 05:49] LABS: BAND 5 % (0-2); EOSINOPHIL 1 % (0.0-3.0); NEUTROPHIL 85 % (50.0-70.0); PLATELET ESTIMATE NORMAL (NORMAL)
[2017-02-07] MEDS ORDERED: Sodium Chloride 0.9% 500 ML IV STA (06:35)
--- NOTE | 2017-02-07 06:38 | CT ---
EXAM: CT Left Lower Extremity Without Intravenous Contrast, Hip CLINICAL HISTORY: 76 years old, male; Injury or trauma; Fall; Initial encounter; Fracture, traumatic; Closed fracture; Hip; Left; Additional info: Left hip fracture TECHNIQUE: Axial computed tomography images of the left hip without intravenous contrast. All CT scans at this facility use one or more dose reduction techniques, viz.: automated exposure control; ma/kV adjustment per patient size (including targeted exams where dose is matched to indication; i.e. head); or iterative reconstruction technique. Coronal and sagittal reformatted images were created and reviewed. COMPARISON: DX - HIP W/WO PELVIS MIN 4V LT 2017-02-07 04:41 FINDINGS: Bones/joints: There is a comminuted, displaced trochanteric region fracture of the left hip. No dislocation. Soft tissues: There is diffuse anasarca. Bowel: There is fecal impaction in the rectum measuring at least 9.8 x 7.8 CM. Colonic constipation is present. No obstruction. No mucosal thickening. Bladder: The bladder is normal. No stones. Other findings: Processes prominent measuring 5.1 CM transverse. IMPRESSION: 1. There is a comminuted, displaced trochanteric region fracture of the left hip. 2. There is fecal impaction in the rectum measuring at least 9.8 x 7.8 CM. 3. There is diffuse anasarca.
[2017-02-07] MEDS ORDERED: Potassium Chloride 20 mEq ER Tab PO STA (06:50)
[2017-02-07] MEDS ORDERED: Enoxaparin 40 mg Syringe SC ONE (08:01)
[2017-02-07] MEDS ORDERED: Dextrose 5%/0.45% NS 1,000 ML IV SCH ×2 (08:30→12:00)
--- NOTE | 2017-02-07 08:38 | CON ---
DATE: 02/07/2017 ORTHOPEDIC CONSULTATION HISTORY OF PRESENT ILLNESS: The patient is a 76-year-old male who slipped at home, sustained a left hip fracture. X-rays done in the Emergency Room disclosed intertrochanteric fracture with comminution of greater trochanter of the left hip. He is Dr. Rehan Jeff's patient. He is also under the care of Dr. Murillo and Dr. Helm and Dr. Bautista, The family understands the risks and benefits of surgery which are to fix his left hip, so that he could get up out of bed, but we have to do after he was seen by the four doctors to make sure he is medically stable and optimally ready. So, hopefully, we could do with a left hip pinning on the 02/08/2017 which would be Tuesday or . His pain is terrific and sooner we will get his fracture together helping much less pain and be able to get up out of bed. FINAL DIAGNOSIS: Comminuted intertrochanteric fracture left hip for open reduction and internal fixation when medically and optimally stable. Cody Benítez DO
--- NOTE | 2017-02-07 08:53 | RAD ---
PROCEDURE: Left Hip X-ray Radiographs. HISTORY: L hip injury COMPARISON: None. FINDINGS: BONES: Intertrochanteric fracture of the left hip with separation of the lesser trochanter. JOINTS: Normal. SOFT TISSUES: Normal. OTHER FINDINGS: None. IMPRESSION: Intertrochanteric fracture of the left hip with separation of the lesser trochanter.
--- NOTE | 2017-02-07 08:54 | RAD ---
HISTORY: hip injury, fx COMPARISON: 01/09/2017 TECHNIQUE: Chest PA and lateral FINDINGS: LUNGS: No active pulmonary disease. PLEURA: No significant pleural effusion identified. No pneumothorax apparent. CARDIOVASCULAR: Normal. OSSEOUS STRUCTURES: Sternal wires VISUALIZED UPPER ABDOMEN: Normal. OTHER FINDINGS: None. IMPRESSION: No active disease.
[2017-02-07] MEDS: Oxycodone/Acetaminophen 5/325 mg Tab PO PRN ×2 (09:04→19:47)
--- NOTE | 2017-02-07 11:24 | CON ---
DATE: 02/07/2017 INDICATION: Preop, status post fall with left hip fracture. HISTORY OF PRESENT ILLNESS: This is a 76-year-old man with recent diagnosis of pancreatic cancer, undergoing evaluation, who fell out of bed and suffered a left hip fracture, two days prior to fall out of bed, he also fell once in the yard. A left hip fracture is documented. Repair is planned for tomorrow. PAST MEDICAL HISTORY: Notable for coronary artery disease and remote coronary bypass operation in 2011. His cardiac status has been relatively stable. An echocardiogram done a couple of weeks ago showed a moderate degree of LV dysfunction. He has been undergoing evaluation for significant weight loss (about 60 pounds) and painless jaundice and was found to have a pancreatic cancer and is being evaluated for a Whipple's procedure. He is a former smoker, but quit at the time of his bypass surgery. 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 There is no history of diabetes, but his blood sugars have been difficult to control recently. There is no history ofhypertension, hyperlipidemia, stroke, TIA, or gout. MEDICATIONS: At the time of admission include aspirin, Lasix, insulin, and Pancrease. ALLERGIES: THERE ARE NO KNOWN MEDICATION ALLERGIES. SOCIAL HISTORY: He lives alone at home, but has a support of his family. He is a former heavy smoker. He does not drink alcohol significantly. FAMILY HISTORY: Noncontributory. REVIEW OF SYSTEMS: A 10-point review of systems is otherwise unremarkable. He has a great deal of pain in the left hip. PHYSICAL EXAMINATION: GENERAL: He is a well-developed, cachectic male, in no acute distress, lying in bed on 5R. His daughter and son are present. VITAL SIGNS: Notable for pulse of 67, he is afebrile, blood pressure 94/55, respirations 18 to 19, and O2 sat 99% on room air. HEENT: Reveals no neck vein distention, thyromegaly, or carotid bruits. Mucous membranes moist. Conjunctivae pink. NECK: Supple. LUNGS: Lung mclaughlin are clear. HEART: Reveals normal first and second heart sounds. There is a soft systolic murmur along the left sternal border. ABDOMEN: Soft. Bowel sounds present. No mass, organomegaly, tenderness, rebound, or guarding. EXTREMITIES: Revealed mild peripheral edema. NEUROLOGIC: Awake, alert, and oriented. SKIN: Warm and dry, and jaundiced appearance. PSYCHIATRIC: Normal as the mood and the affect. LABORATORY AND IMAGING: A chest x-ray reveals no active disease. An echocardiogram dated 01/11/2017 reveals [id number] LV dysfunction with apical hypokinesis and paradoxical septum. X-ray of the left hip revealed an intertrochanteric fracture of the left hip with separation of the lesser trochanter. CT of the hip reveals a comminuted displaced trochanteric region fracture of the left hip, etc. White count 11,200, hemoglobin 10.4, hematocrit 30.8, and platelet count 243,000. PT/INR and PTT unremarkable. Sodium 130, potassium 3.3, chloride 97, carbon dioxide 29, BUN 27, and creatinine 0.9. Blood sugars are 47, 46, and 114. LFTs are abnormal. CK 207. Troponin is less than 0.01. Amylase and lipase normal. EKG, regular sinus rhythm, right bundle-branch block, left anterior hemiblock, and no change from the prior EKG. IMPRESSION: Jemal Ibarra is a 76-year-old male, former smoker with coronary artery disease, remote coronary bypass surgery, left ventricular dysfunction as described in a recent echocardiogram, who has a recent diagnosis of pancreatic cancer with painless jaundice and significant weight loss, who has an unstable gait, has fallen several times, and fell out of bed early this morning, fracturing his left hip as described in the x-rays and CT scan. PLAN: He has considerable amount of pain. Plans are made for repair of the hip by Dr. Benítez in the next day or so. He should be considered a moderately increased cardiac risk. Preoperatively, I would replace his potassium. He is getting IV fluids. He is being followed by GI and Oncology. He is getting Dilaudid as needed, Percocet as needed, and Tylenol as needed. I will review any cardiac records that we have in the office (not seen recently I think), He and his family are well aware of the cardiac risks associated with hip surgery and they wish to proceed at this time. In the future, if he is to undergo a Whipple procedure, we should consider a pre -op nuclear stress test to get additional information about his cardiac function and coronary anatomy. I have discussed his case with his family at the bedside. Barry Valenzuela MD JOSEF
[2017-02-07] MEDS ORDERED: D5 IV SCH (12:00)
[2017-02-07] MEDS ORDERED: Potassium Chloride 10 mEq ER Tab PO ONE (12:00)
[2017-02-07] MEDS ORDERED: [UNRECOGNIZED DRUG - OTHER] IV SCH (12:00)
[2017-02-07] MEDS ORDERED: POTASSIUM CHL IV SCH (12:00)
[2017-02-07] MEDS ORDERED: DEXTROSE IV SCH (12:00)
--- NOTE | 2017-02-07 13:30 | HP ---
HISTORY OF PRESENT ILLNESS: The patient is a 76-year-old male who presents to [facility] with pain in the left hip after falling out of bed. The patient states he was getting up to go to the bathroom in the middle of the night, simply fell out bed landing on his left hip and suffering with pain since then. So the squad was called. He came to the emergency room and was diagnosed with intertrochanteric hip fracture and is admitted. PAST MEDICAL HISTORY: Positive for coronary artery disease, he is 6 years status post coronary artery bypass grafting, he was diagnosed with pancreatic carcinoma approximately 1 month ago and at that time he was also diagnosed with diabetes mellitus. MEDICATIONS AT HOME: Includes Lasix and Pancrease. ALLERGIES: HAS NO KNOWN MEDICAL ALLERGIES. SOCIAL HISTORY: He is a former smoker. Nonalcoholic drinker. PHYSICAL EXAMINATION: GENERAL: On physical examination, the patient is lying in bed. His daughter is at bedside. He is awake, alert, and oriented. Pain seems to be controlled with the analgesics given. HEENT: Unremarkable. NECK: Supple with no lymphadenopathy. No goiter. LUNGS: Clear to auscultation and percussion. HEART: Regular. No murmurs are appreciated. ABDOMEN: Soft and nontender. EXTREMITIES: Free of cyanosis, clubbing, or edema. There is tenderness in the left hip secondary to the fracture. NEUROLOGIC: The patient is awake, alert, and oriented with no focal neurological signs. LABORATORY DATA: Show that he is A negative type blood. His white blood cell count is 11.2, hemoglobin and hematocrit are 10.4 and 30.8 respectively, and platelet count is 243. Sodium is 130, potassium is 3.3, blood urea nitrogen is 27, creatinine is 0.9. Initially, his glucose was depressed at 47. This was treated and brought up to 114. Chest x-ray shows no acute disease. EKG shows regular sinus rhythm with right bundle branch block and an old inferior wall myocardial infarction. This appears to be unchanged from his previous studies. As expected his liver enzymes are elevated on the blood workup, total bilirubin 2.2, AST is 162, and ALT is 128. This is consistent with his history of pancreatic carcinoma. ASSESSMENT AND PLAN: So the patient is admitted. Potassium is being supplement. He is receiving IV fluids. I lowered the rate to 60 mL an hour adding 10 mEq of potassium per liter of IV fluids. Morning labs are ordered. The patient was evaluated by Dr. Benítez and when medically cleared hopefully by tomorrow he will be taken to the OR for surgical repair of the left hip fracture. Cody Jeff MD
[2017-02-07] MEDS ORDERED: Potassium Chl 10 mEq in D5-1/2 1,000 ML IV SCH (14:30)
[2017-02-07] MEDS: Insulin Reg-HIGH-Coverage SC SCH ×2 (16:45→21:48)
[2017-02-07] MEDS: Amylase/Lipase/Protease 5,000 U ECC PO SCH (16:45)
[2017-02-07] MEDS: HYDROmorphone 0.5 mg/0.5 ml ISec SC PRN (17:21)
[2017-02-07] MEDS: Insulin Detemir 100 units/ml Vial (Levemir) SC SCH (21:48)
--- NOTE | 2017-02-07 23:19 | CARD ---
APPROVED REPORT EKG Measurement Heart [id number] <Conclusion> Normal sinus rhythm Left axis deviation Right bundle branch block Inferior infarct, age undetermined Abnormal ECG
[2017-02-08] MEDS: HYDROmorphone 0.5 mg/0.5 ml ISec SC PRN ×2 (01:08→17:57)
[2017-02-08] MEDS: Oxycodone/Acetaminophen 5/325 mg Tab PO PRN ×2 (06:59→20:32)
[2017-02-08 07:30] LABS: HEMATOCRIT 30.5 % (42.0-52.0); MEAN CELL VOLUME 101.3 fl (80.0-105.0); MEAN CORPUSCULAR HEMOGLOBIN 33.6 pg (25.0-35.0); MEAN CORPUSCULAR HGB CONC 33.1 g/dl (31.0-37.0); MEAN PLATELET VOLUME 10.7 fl (7.0-11.0); RED CELL DISTRIBUTION WIDTH 14.2 % (11.5-14.5)
[2017-02-08] MEDS: Insulin Reg-HIGH-Coverage SC SCH ×4 (07:40→21:22)
[2017-02-08 07:43] LABS: ALKALINE PHOSPHATASE 216 U/L (38-126); ALT/SGPT 98 U/L (7-56); AST/SGOT 71 U/L (17-59); BILIRUBIN,TOTAL 1.9 mg/dL (0.2-1.3); BLOOD UREA NITROGEN 21 mg/dL (7-21); CALCIUM 8.6 mg/dL (8.4-10.5); CARBON DIOXIDE 27 mmol/L (21-33); CHLORIDE 98 mmol/L (95-110); GFR AFRICAN-AMERICAN > 60; GLUCOSE,RANDOM 225 mg/dL (70-110); POTASSIUM 3.9 mmol/L (3.6-5.0); SODIUM 127 mmol/L (132-148); TOTAL PROTEIN 5.6 g/dL (5.8-8.3)
[2017-02-08] MEDS: Amylase/Lipase/Protease 5,000 U ECC PO SCH ×2 (08:27→16:45)
[2017-02-08] MEDS ORDERED: Potassium Chloride 10 mEq ER Tab PO ONE (08:30)
[2017-02-08] MEDS: Sodium Chloride 0.9% 1,000 ML IV SCH (08:38)
[2017-02-08] MEDS ORDERED: Succinylcholine 200 mg/10 ml Inj IV ONE (10:05)
[2017-02-08] MEDS ORDERED: Etomidate 20 mg/10ml Inj IV ONE (10:05)
[2017-02-08] MEDS ORDERED: Phenylephrine 10 mg/ml Inj ONE (10:05)
[2017-02-08] MEDS ORDERED: Bupivacaine 0.5% Inj(30mL) ONE (10:16)
[2017-02-08] MEDS ORDERED: HYDROmorphone 0.5 mg/0.5 ml ISec IVP PRN (12:12)
[2017-02-08] MEDS ORDERED: HYDROmorphone 0.5 mg/0.5 ml ISec ONE (12:47)
[2017-02-08] MEDS ORDERED: HYDROmorphone 0.5 mg/0.5 ml ISec IVP ONE (12:49)
[2017-02-08] MEDS: ceFAZolin 1 gm in NS 1 GM/100 ML BAG IVPB SCH ×2 (14:58→21:24)
--- NOTE | 2017-02-08 16:23 | RAD ---
PROCEDURE: Fluoroscopy up to 1 hour HISTORY: O.R.I.F. LEFT HIP COMPARISON: TECHNIQUE: Fluoroscopy was provided in the operating room. 64.5 seconds of fluoro time were used. 5 images were submitted FINDINGS: There has been internal fixation of an intertrochanteric fracture. There is normal alignment IMPRESSION: As above
--- NOTE | 2017-02-08 18:01 | OP ---
PROCEDURE DATE: 02/08/2017 PREOPERATIVE DIAGNOSIS: Displaced intertrochanteric fracture, left hip.. POSTOPERATIVE DIAGNOSIS: Displaced intertrochanteric fracture, left hip. PROCEDURE: Open reduction and internal fixation of Biomet peritrochanteric lalitha 170 mm long, lag screw of 100 mm long, locked distally with a 38 mm cortical screw. TYPE OF ANESTHESIA: General endotracheal tube. DESCRIPTION OF PROCEDURE: In summary, the patient was taken to the OR. Left hip was prepped and draped in sterile fashion at the fracture table. Antibiotics given preop, Ancef 1 g, and with the help of the x-ray, we could see the fracture was reduced with traction rotation, and with this done, we were able to make a 2 cm incision, 4 cm proximal to the greater trochanter which was also fractured, just increased complexity of the fracture with difficulty to put it together. After made the incision, went down to the greater trochanter going through the fascia with a threaded-tip guidewire, and we were able to get into the distal fragment layer with the femur in the hip. Once this was in, we pushed in the reamer for 7 cm proximally 17 mm reamer, then put in the 170 mm long intramedullary lalitha, locked approximately to second incision with a help of a jig going through the femoral head and neck just inferior and posterior. X-ray show good position of the guidewire, so we over-reamed it with the appropriate reamer, 12 mm reamer to allow us to put in a 100 mm long lag screw that was 10 mm wide that was compressible. Once this was done, the traction was taken off prior to insertion of lag screw and then we locked the lalitha distally with one cortical screw with a third incision in line with the jig, that was 38 mm long, this locked the lalitha distal and proximal to the fracture. Patient's wounds were irrigated with normal saline, closed in layers starting with 0-Vicryl for the fascia, 2-0 Vicryl subcutaneous tissue. Skin with stainless steel wolf. Patient was taken to the recovery room, sterile dressing in good condition. Cody Benítez DO [facility] # [id number]
[2017-02-08] MEDS: Insulin Detemir 100 units/ml Vial (Levemir) SC SCH (21:23)
--- NOTE | 2017-02-08 23:41 | PN ---
POSTOPERATIVE REPORT DATE: LOCATION: Room 565, bed 1. A 76-year-old who had the surgery midmorning today and he is comfortable in bed, not complaining of any undue pain. We will plan to get him up out of bed tomorrow and he is going to have sequential compression stockings, spirometer, and continuation of IV fluid, so he can eat adequately. We will start physical therapy, up out of bed and ambulate with a walker tomorrow, weightbearing to tolerance, and follow his CBC and electrolytes management. Cody Benítez DO
[2017-02-09] MEDS: Oxycodone/Acetaminophen 5/325 mg Tab PO PRN ×3 (02:12→19:01)
[2017-02-09] MEDS: Sodium Chloride 0.9% 1,000 ML IV SCH (04:49)
[2017-02-09 07:13] LABS: ALKALINE PHOSPHATASE 147 U/L (38-126); ALT/SGPT 64 U/L (7-56); AST/SGOT 47 U/L (17-59); BILIRUBIN,TOTAL 1.6 mg/dL (0.2-1.3); BLOOD UREA NITROGEN 19 mg/dL (7-21); CALCIUM 8.3 mg/dL (8.4-10.5); CARBON DIOXIDE 28 mmol/L (21-33); CHLORIDE 101 mmol/L (98-107); GFR AFRICAN-AMERICAN > 60; GLUCOSE,RANDOM 50 mg/dL (70-110); POTASSIUM 3.7 mmol/L (3.6-5.0); SODIUM 131 mmol/L (132-148)
[2017-02-09 07:16] LABS: EOS # 0.2 (0.0-0.7); EOS % 2.4 % (1.5-5.0); GRAN # 5.32 (1.4-6.5); GRAN % 78.3 % (50.0-68.0); LYMPH # 0.6 (1.2-3.4); LYMPH % 9.1 % (22.0-35.0); MEAN CELL VOLUME 101.1 fl (80.0-105.0); MEAN CORPUSCULAR HEMOGLOBIN 33.7 pg (25.0-35.0); MEAN CORPUSCULAR HGB CONC 33.3 g/dl (31.0-37.0); MEAN PLATELET VOLUME 10.4 fl (7.0-11.0); MONO # 0.7 (0.1-0.6); MONO % 10.2 % (1.0-6.0); WHITE BLOOD COUNT 6.8 10^3/ul (4.5-11.0)
[2017-02-09] MEDS: Amylase/Lipase/Protease 5,000 U ECC PO SCH ×2 (07:56→19:01)
[2017-02-09] MEDS: Enoxaparin 30 mg Syringe SC SCH (10:24)
--- NOTE | 2017-02-09 13:09 | PN ---
DATE: POSTOP REPORT SUBJECTIVE: A 76-year-old underwent ORIF of the left intertrochanteric fracture yesterday. He is doing quite well with minimal pain. He says the muscles are too spastic to move his leg, but would start physical therapy today and put the old frame on the bed. His hemoglobin is 9.0 and hematocrit 27, and we will just follow it everyday. Sugars are little elevated because of his pancreas problem. He says he wants to eat breakfast,so that will help the sugar. Hopefully, send to rehab when he is stable with our rehab in [facility], when medically stable to go to rehab. Cody Benítez DO
--- NOTE | 2017-02-09 13:28 | PN ---
DATE: 02/09/2017 SUBJECTIVE: The patient is seen lying in bed on 5-R. He underwent successful hip surgery yesterday. Denies any chest pain or dyspnea. MEDICATIONS: His current medications include Dilaudid p.r.n., insulin coverage and Levemir insulin, Lovenox, and Percocet p.r.n. OBJECTIVE: GENERAL: He is an elderly man who appears relatively comfortable at rest. VITAL SIGNS: His blood pressure is 110/68 with a pulse of 70, and respirations of 16. He is afebrile. HEENT: No JVD. CHEST: A few scattered rhonchi heard. HEART: PMI normal position. No pathological gallops noted. GASTROINTESTINAL: The abdomen is soft and nontender with normoactive bowel sounds. EXTREMITIES: No edema. DIAGNOSTIC DATA: Sodium is 131, potassium is 3.7, and BUN and creatinine are 19 and 0.7. Hemoglobin and hematocrit are 9.0 and 27.0 with white count of 6.8 and platelet count of 215,000. Total bilirubin is 1.6 and AST and ALT are 47 and 64 with an alkaline phosphatase of 147. IMPRESSION 1. Status post fall with left hip fracture and surgical repair yesterday, clinically stable. 2. Coronary artery disease, remote coronary bypass surgery. 3. History of left ventricular systolic dysfunction. 4. Recent diagnosis of pancreatic cancer. 5. History of tobacco abuse. RECOMMENDATIONS: At this time, his postoperative care should continue. With respect to his heart disease initiation of aspirin therapy should be considered if not contraindicated. If his blood pressure tolerates the addition of a beta-robert and a afterload reduction agent for his LV dysfunction should be considered. Obviously, his pancreatic cancer workup and treatment takes precedence at this time. We will be happy to follow as needed. Jose Enrique Murillo MD
[2017-02-09] MEDS: Insulin Reg-HIGH-Coverage SC SCH (17:16)
[2017-02-09] MEDS: Insulin Detemir 100 units/ml Vial (Levemir) SC SCH (22:05)
[2017-02-10 07:15] LABS: BASO # 0.01 K/mm3 (0.0-2.0); BASO % 0.2 % (0.0-3.0); EOS # 0.3 (0.0-0.7); EOS % 4.2 % (1.5-5.0); GRAN # 4.58 (1.4-6.5); GRAN % 74.1 % (50.0-68.0); HEMATOCRIT 26.8 % (42.0-52.0); LYMPH # 0.7 (1.2-3.4); LYMPH % 11.8 % (22.0-35.0); MEAN CELL VOLUME 100.8 fl (80.0-105.0); MEAN CORPUSCULAR HEMOGLOBIN 33.5 pg (25.0-35.0); MEAN CORPUSCULAR HGB CONC 33.2 g/dl (31.0-37.0); MEAN PLATELET VOLUME 10.2 fl (7.0-11.0); MONO # 0.6 (0.1-0.6); MONO % 9.7 % (1.0-6.0); RED CELL DISTRIBUTION WIDTH 13.8 % (11.5-14.5); WHITE BLOOD COUNT 6.2 10^3/ul (4.5-11.0)
[2017-02-10] MEDS: Insulin Reg-HIGH-Coverage SC SCH ×4 (07:51→21:32)
[2017-02-10 07:53] LABS: ALB/GLOB RATIO 0.9 (1.1-1.8); ALKALINE PHOSPHATASE 475 U/L (38-126); ALT/SGPT 125 U/L (7-56); AST/SGOT 135 U/L (17-59); BILIRUBIN,TOTAL 1.6 mg/dL (0.2-1.3); BLOOD UREA NITROGEN 13 mg/dL (7-21); CALCIUM 8.1 mg/dL (8.4-10.5); CARBON DIOXIDE 30 mmol/L (21-33); CHLORIDE 99 mmol/L (98-107); GFR AFRICAN-AMERICAN > 60; GLUCOSE,RANDOM 91 mg/dL (70-110); POTASSIUM 3.5 mmol/L (3.6-5.0); SODIUM 131 mmol/L (132-148)
[2017-02-10] MEDS: Amylase/Lipase/Protease 5,000 U ECC PO SCH ×2 (07:58→16:45)
[2017-02-10] MEDS: Oxycodone/Acetaminophen 5/325 mg Tab PO PRN (07:59)
[2017-02-10] MEDS ORDERED: Potassium Chloride 20 mEq ER Tab PO ONE (09:14)
[2017-02-10] MEDS: Enoxaparin 30 mg Syringe SC SCH (09:39)
--- NOTE | 2017-02-10 13:21 | PN ---
DATE: SUBJECTIVE: The patient is a 76-year-old male, who presents to [facility] with pain on the left hip after falling out of bed. He was found to have an intertrochanteric hip fracture on the left. He was admitted, evaluated by Dr. Cody Benítez, the orthopedist. The patient is known to have a history of coronary artery disease status post coronary artery bypass grafting 6 years ago. He was diagnosed with pancreatic carcinoma approximately one month ago, and at that time, also diagnosed with diabetes mellitus. The patient was stabilized overnight and taken to the operating room, where the hip fracture was pinned by Dr. Benítez. When seen today, he is resting comfortably, voices no complaints. PHYSICAL EXAMINATION: His vital signs are stable, although the blood pressure normally runs a little bit low, 100/54. LABORATORY DATA: White blood cell count is 6.2, hemoglobin and hematocrit are 9.0 and 27.0. Sodium is 131, potassium 3.7, blood urea nitrogen is 19, creatinine is 0.7. ASSESSMENT AND PLAN: We are encouraging physical therapy and arrangements are being made for the patient to be transferred to subacute rehab for physical therapy, post surgical repair of hip fracture. Cody Jeff MD
[2017-02-10] MEDS ORDERED: Oxycodone/Acetaminophen 5/325 mg Tab PO PRN (14:23)
--- NOTE | 2017-02-10 16:35 | US ---
PROCEDURE: Left lower extremity venous US HISTORY: Leg pain and swelling. Evaluate for DVT. PHYSICIAN(S): Chicho Trujillo MD. TECHNIQUE: Duplex sonography and color-flow Doppler with graded compression were used to evaluate the deep venous system of the left lower extremity. FINDINGS: The visualized deep venous system of the left lower extremity is sonographically normal and compressible. Normal wave forms and augmentation are seen. There is no sonographic evidence for deep venous thrombosis in the visualized segments of the left lower extremity. IMPRESSION: 1. No sonographic evidence for deep venous thrombosis in the visualized segments of the left lower extremity.
[2017-02-10] MEDS: Sodium Chloride 0.9% 1,000 ML IV SCH (17:27)
[2017-02-10] MEDS: Insulin Detemir 100 units/ml Vial (Levemir) SC SCH (21:37)
--- NOTE | 2017-02-10 23:05 | PN ---
DATE: 02/10/2017 SUBJECTIVE: The patient seen this at noon time in the room 565, bed #1. He is resting comfortably in bed, but reports pain in the left leg and thigh. PHYSICAL EXAMINATION LUNGS: Good aeration in the right and left. ABDOMEN: Soft and nontender. SKIN: His jaundice has resolved nicely from his last admission where pancreatic CA was diagnosed. NEUROLOGIC: He is awake, alert and appropriate. He has gained significant amount of weight since he was initially admitted the last time. Postoperatively, his left femur is reportedly doing well; however, the patient complained of significant pain, was trying to bear weight and ambulate with Physical Therapy. Of note is that the left leg seems markedly swollen; therefore I will order a venous Doppler of the left lower extremity to rule out a DVT. We will also adjust his pain medicines, add Percocet 5/325 p.r.n. pain. If things goes smoothly; hopefully, he will be medically cleared and ready for sending him to subacute rehab when released by Orthopedics. Rehan eJff MD
[2017-02-11] MEDS: Sodium Chloride 0.9% 1,000 ML IV SCH (05:33)
[2017-02-11 07:12] LABS: BASO # 0.02 K/mm3 (0.0-2.0); BASO % 0.3 % (0.0-3.0); EOS # 0.2 (0.0-0.7); EOS % 3.2 % (1.5-5.0); GRAN # 4.98 (1.4-6.5); GRAN % 75.8 % (50.0-68.0); HEMATOCRIT 30.1 % (42.0-52.0); LYMPH # 0.8 (1.2-3.4); LYMPH % 11.7 % (22.0-35.0); MEAN CELL VOLUME 100.3 fl (80.0-105.0); MEAN CORPUSCULAR HEMOGLOBIN 33.3 pg (25.0-35.0); MEAN CORPUSCULAR HGB CONC 33.2 g/dl (31.0-37.0); MEAN PLATELET VOLUME 10.2 fl (7.0-11.0); MONO # 0.6 (0.1-0.6); RED CELL DISTRIBUTION WIDTH 13.6 % (11.5-14.5); WHITE BLOOD COUNT 6.6 10^3/ul (4.5-11.0)
[2017-02-11] MEDS ORDERED: Bupivacaine 0.5% Inj(30mL) IJ ONE (07:37)
[2017-02-11] MEDS ORDERED: MethylPREDNISolone Depo 40 mg/ml Inj IM ONE (07:37)
[2017-02-11 07:51] LABS: ALB/GLOB RATIO 0.9 (1.1-1.8); ALKALINE PHOSPHATASE 458 U/L (38-126); ALT/SGPT 96 U/L (7-56); AST/SGOT 79 U/L (17-59); BILIRUBIN,TOTAL 1.7 mg/dL (0.2-1.3); BLOOD UREA NITROGEN 12 mg/dL (7-21); CALCIUM 8.2 mg/dL (8.4-10.5); CARBON DIOXIDE 32 mmol/L (21-33); CHLORIDE 99 mmol/L (98-107); GFR AFRICAN-AMERICAN > 60; GLUCOSE,RANDOM 77 mg/dL (70-110); POTASSIUM 3.4 mmol/L (3.6-5.0); SODIUM 133 mmol/L (132-148); TOTAL PROTEIN 5.4 g/dL (5.8-8.3)
[2017-02-11 08:10] VITALS: BP 131/86; PULSE 77; RESP 18; TEMP 98.2; O2SAT 98
[2017-02-11] MEDS: Amylase/Lipase/Protease 5,000 U ECC PO SCH (08:44)
[2017-02-11] MEDS: Insulin Reg-HIGH-Coverage SC SCH ×2 (08:54→11:47)
[2017-02-11] MEDS ORDERED: Potassium Chloride 20 mEq/15 ml LIQ UD PO STA (09:47)
--- NOTE | 2017-02-11 09:54 | PN ---
DATE:feb 11 2017 SUBJECTIVE: He states he cannot lift his left leg, he is 3 days postop, but his surgery went well, the pins in a good position. He can move the muscles, can flex the knee to 20 degrees. He does have an effusion of his left knee, so I aspirated 30 mL of clear synovial fluid and again injected Depo-Medrol, Marcaine, but never for certain that he will be able to ambulate and move his knee better. It is time to go to see him anytime for subacute rehab, and I will follow him there. As he has a stable left hip pinning, and he should be able to ambulate with a walker in time. Hopefully, can go to see him today, and I will follow him there a while and there are no signs of infection of his left knee as the fluid was clear and not even cloudy. I will follow him at [facility] for therapy and to see how the left knee does also for the mild synovitis he had from that. It seems to be like a sympathetic effusion from the surgery with traction. Cody Benítez DO MTDDani
[2017-02-11] MEDS ORDERED: Atropine-Diphenoxylate 0.025-2.5 mg Tab PO STA (09:56)
[2017-02-11] MEDS: Enoxaparin 30 mg Syringe SC SCH (10:22)
--- NOTE | 2017-02-14 03:01 | DS ---
HISTORY OF PRESENT ILLNESS: This is a 76-year-old man who sort of lost the followup in the office until he appeared one Jj after I have not seen him for 2 years. He presented with extreme jaundice. He was sent for CAT scan, lab works were done, his bilirubin was 18, and pancreatic mass was noted. He was hospitalized with sugars over 500. A stent was placed. His bilirubin started to fall. He went home, was following up with the oncologist as well as family is considering whether or not to go for a surgical second opinion and when the patient fell out of bed, fracturing his hip. He presented to the emergency room, was taken to the operating room under the skillful hands of Dr. Cody Benítez for surgical repair. Postoperative course was relatively uneventful. We tried our best to motivate the patient as well as we could postoperatively with analgesics and hydration and the patient is improved. His left leg was noted to be profoundly swollen, so prior to discharge, an ultrasound was done with no signs of deep vein thrombosis. He is hemodynamically stable. Pain medicines were adjusted and he was ready for discharge to [facility] for rehab and we will follow up with the Oncology surgeon as well as his oncologist. Soon afterwards, he was also seen by cargo services coordinator during this hospital stay since he has a history of coronary artery disease and re-evaluation was recommended prior to large surgery such as Whipple procedure. Rehan Jeff MD
== END 2017-02-11 14:04 | DRG 481 ==
LOC: ED 04:00 → ERH 05:30 → 5RSO 07:54 → 5RNO 02-08 08:36
PROVIDERS: ADMIT Internal Medicine; ATTEND Internal Medicine
PROC: 0QS706Z Reposition Left Upper Femur with Intramedullary Internal Fixation Device, Open Approach (ICD-10-PCS; principal; 2017-02-08 09:30)
DX: S72.142A Displaced intertrochanteric fracture of left femur, initial encounter for closed fracture (principal); C25.9 Malignant neoplasm of pancreas, unspecified; R64 Cachexia; E11.9 Type 2 diabetes mellitus without complications; I25.10 Atherosclerotic heart disease of native coronary artery without angina pectoris; R29.6 Repeated falls; W06.XXXA Fall from bed, initial encounter; Y93.89 Activity, other specified; Y92.003 Bedroom of unspecified non-institutional (private) residence as the place of occurrence of the external cause; Y99.9 Unspecified external cause status; Z95.1 Presence of aortocoronary bypass graft; Z87.891 Personal history of nicotine dependence

== ENCOUNTER 2017-03-02 23:14 | Inpatient (IN) | payer MEDICARE, OTHER ==
[2017-03-02] MEDS ORDERED: Vancomycin 1gm in NS 250ml 1 GM/250 ML BAG IVPB STA (23:46)
--- NOTE | 2017-03-03 00:04 | ED PDOC ---
Arrival/HPI - General Historian: Patient, Family - History of Present Illness Time/Duration: > week, < month Symptom Onset: Gradual Symptom Course: Worsening Activities at Onset: Rest, Light Context: Other ([facility]) - General Chief Complaint: Fever - History of Present Illness Narrative History of Present Illness (Text): 03/02/17 23:53 Mr. Ibarra is a 76 year old male resident of [facility] with a past medical history significant for recently diagnosed pancreatic cancer, recent left hip fracture s/p repair with Dr. Benítez and DM2 who was BIBA to [facility] for fever to 101 and two weeks of progressively worsening bilateral lower extremity edema/erythema. Patient is accompanied by his daughter who reports that patient has had two weeks of progressively worsening bilateral lower extremity edema for which she has put moisturizing lotions on but reports no further interventions for this complaint. She also reports that patient developed a fever today to 101 measured with oral thermometer for which he received two doses of APAP for earlier today. Of note, patient reports that he has had to go to the restroom, both urination and defecation, more frequently than usual and that his stools are mixed between solid and loose. His only other complaint at this time is knee and hip pain. Patient denies chills, headache, ear/eyes/nose discharge or pain, sore throat, chest pain, palpitations, SOB, cough, wheezing, abdominal pain, N/V, constipation, burning/pain with urination, or any numbness/ tingling/weakness of any extremity. (Merrick Milton) Past Medical History - Provider Review Nursing Documentation Reviewed: Yes - Travel History Have you recently traveled outside [place] w/in the past 3 mons?: No - Past History Past History: Non-Contributing - Infectious Disease Hx of Infectious Diseases: None - Tetanus Immunization Tetanus Immunization: Unknown - Past Medical History Past Medical History: Non-Contributing - Cardiac Hx Cardiac Disorders: Yes (triple bypass x6yrs ago) - Pulmonary Hx Respiratory Disorders: No - Neurological Hx Neurological Disorder: No - HEENT Hx HEENT Disorder: No - Renal Hx Renal Disorder: No - Endocrine/Metabolic Hx Diabetes Mellitus Type 1: Yes - Hematological/Oncological Hx Blood Transfusions: No Hx Blood Transfusion Reaction: No - Integumentary Hx Dermatological Disorder: No - Musculoskeletal/Rheumatological Hx Musculoskeletal Disorders: No Hx Falls: Yes - Gastrointestinal Hx Gastrointestinal Disorders: No - Genitourinary/Gynecological Hx Genitourinary Disorders: No - Psychiatric Hx Psychophysiologic Disorder: No Hx Depression: No Hx Emotional Abuse: No Hx Physical Abuse: No Hx Substance Use: No - Surgical History Other/Comment: triple bypass 6yrs ago - Anesthesia Hx Anesthesia: Yes Hx Anesthesia Reactions: No Hx Malignant Hyperthermia: No - Suicidal Assessment Feels Threatened In Home Enviroment: No Family/Social History - Physician Review Nursing Documentation Reviewed: Yes Family/Social History: No Known Family HX Smoking Status: Former Smoker Hx Alcohol Use: No Hx Substance Use: No Hx Substance Use Treatment: No Allergies/Home Meds Allergies/Adverse Reactions: Allergies No Known Allergies Allergy (Verified 02/07/17 04:09) Home Medications: Home Meds Medication Instructions Recorded Confirmed Docusate [Colace] 3 cap PO HS 03/02/17 03/02/17 Insulin Detemir [Levemir] 15 unit SC HS 03/02/17 03/02/17 Insulin Human Regular-HIGH See Protocol SC ACHS 03/02/17 03/02/17 [HumuLIN R HIGH] Lipase/Protease/Amylase [Zenpep Dr 1 cap PO TID 03/02/17 03/02/17 15,000 Units Capsule] Nut.tx.gluc.intoler,Lac-Fr,Soy 1 bottle PO DAILY 03/02/17 03/02/17 [Glucerna] Silver Sulfadiazine [Silvadene] 1 appl TOP DAILY 03/02/17 03/02/17 oxyCODONE/Acetaminophen [Percocet 1 tab PO Q4H PRN 03/02/17 03/02/17 5/325 mg Tab] Review of Systems - Physician Review All systems were reviewed & negative as marked: Yes - Review of Systems Constitutional: Fevers. absent: Normal, Night Sweats Eyes: Normal. absent: Vision Changes, Eye Pain ENT: Normal. absent: Sore Throat, Rhinorrhea, Sinus Congestion Respiratory: Normal. absent: SOB, Cough, Wheezing Cardiovascular: Normal. absent: Chest Pain, Palpitations, Syncope Gastrointestinal: Stool Changes (More frequently and mixed solid and diarrhea). absent: Normal, Abdominal Pain, Constipation, Diarrhea, Nausea, Vomiting Genitourinary Male: Frequency. absent: Normal, Dysuria, Hematuria Musculoskeletal: Arthralgias (bilateral knee and hip pain). absent: Normal Skin: Rash, Cellulitis (Bilateral lower extremity). absent: Normal Neurological: Normal. absent: Headache Endocrine: Normal Hemo/Lymphatic: Normal Psychiatric: Normal Physical Exam Vital Signs Reviewed: Yes Temperature: Afebrile Blood Pressure: Hypotensive Pulse: Tachycardic Respiratory Rate: Normal Appearance: Positive for: Well-Appearing, Non-Toxic, Comfortable Pain Distress: None Mental Status: Positive for: Alert and Oriented X 3 - Systems Exam Head: Present: Atraumatic, Normocephalic Pupils: Present: PERRL. No: Sluggish, Non-Reactive, Pinpoint Extroacular Muscles: Present: EOMI. No: Gaze Palsy, Entrapment Conjunctiva: Present: Normal. No: Injected, Icteric Mouth: Present: Moist Mucous Membranes Pharnyx: Present: Normal. No: ERYTHEMA, EXUDATE, TONSILS ENLARGED Nose (External): Present: Atraumatic Nose (Internal): Present: Normal Inspection, No Active Bleeding Neck: Present: Normal Range of Motion, Trachea Midline. No: Meningeal Signs, MIDLINE TENDERNESS, Paraspinal Tenderness, JVD, Lymphadenopathy Respiratory/Chest: Present: Clear to Auscultation, Good Air Exchange. No: Respiratory Distress, Accessory Muscle Use, Wheezes, Decreased Breath Sounds, Rales, Retracting, Rhonchi, Tachypneic, Tender to Palpation Cardiovascular: Present: Regular Rate and Rhythm, Normal S1, S2, Peripheal Pulses Present. No: Murmurs, Irregular Rhythm, Tachycardic, Bradycardic Abdomen: Present: Normal Bowel Sounds. No: Tenderness, Distention, Peritoneal Signs Back: Present: Normal Inspection. No: CVA Tenderness, Midline Tenderness, Paraspinal Tenderness Upper Extremity: Present: Normal Inspection. No: Cyanosis, Edema Lower Extremity: Present: Edema (1+pitting edema to mid thigh bilaterally with overlying erythema and skin scaling), NORMAL PULSES, Erythema, Capillary Refill < 2 s. No: Normal Inspection, CALF TENDERNESS, Cyanosis, Luis's Sign, Tenderness Neurological: Present: GCS=15, CN II-XII Intact, Speech Normal Skin: Present: Warm, Dry, Other (See above findings). No: Rashes, Normal Color Lymphatic: No: Cervical Adenopathy Psychiatric: Present: Alert, Oriented x 3, Normal Insight, Normal Concentration Vital Signs Temp Pulse Resp BP Pulse Ox 03/03/17 04:53 77 16 107/47 L 99 03/03/17 04:30 78 16 96/56 L 100 03/03/17 03:08 84 14 106/66 99 03/03/17 02:25 79 97/60 L 03/03/17 01:59 86/60 L 03/03/17 01:47 84 18 75/50 L 99 03/03/17 01:39 98.5 F 03/03/17 00:34 95 H 24 88/46 L 99 03/02/17 23:28 100.0 F H 105 H 18 97/59 L 98 03/02/17 23:18 100.0 F H 103 H 24 97/59 L 98 Medical Decision Making - Lab Interpretations I have reviewed the lab results: Yes ED Course and Treatment: Patient Seen With Resident: In agreement with resident note which contains more details about the patient. Patient was seen and evaluated with resident. Came up with plan and treatment together. A 76 year old male with fever and bilateral leg swelling. Additional HPI as noted by resident. On physical exam, patient has lower extremity 1+ pitting edema to mid thigh b/l with overlying erythema and skin scaling. Ordered EKG, chest xray, labs and urinalysis. Will give patient Vancomycin, IV fluids and Pepcid. (Bolivar Acosta) 03/03/17 00:08 Impression: 76 year old male resident of [facility] with a past medical history significant for recently diagnosed pancreatic cancer, recent left hip fracture s/p repair with Dr. Benítez and DM2 who was BIBA to [facility] ED for fever to 101 and two weeks of progressively worsening bilateral lower extremity edema/erythema Plan: -CBC, CMP, UA, VBG, Mag/Phos, INR/aPTT, UA, blood/urine cultures -Chest X-Ray portable -EKG -Fingerstick BG -1gm Vancomycin (250ml) -Reassess and disposition Prior Visits: Patient seen and evaluated for jaundice and pancreatic mass in 12/12 Patient seen and evaluated for fall/hip pain in 01/2017 (Merrick Milton) - Lab Interpretations Lab Results: 03/02/17 23:45 03/02/17 23:45 Lab Results 03/03/17 02:30: Urine Color Yellow, Urine Appearance Clear, Urine pH 6.0, Ur Specific [place] 1.010, Urine Protein Negative, Urine Glucose (UA) 100 H, Urine Ketones Negative, Urine Blood Negative, Urine Nitrate Negative, Urine Bilirubin Negative, Urine Urobilinogen 0.2, Ur Leukocyte Esterase Negative 03/02/17 23:45: Sodium 126 L, Chloride 92 L, Potassium 3.5 L, Carbon Dioxide 28 , Anion Gap 9 L, BUN 17, Creatinine 0.9, Est GFR ( Amer) > 60, Est GFR ( Non-Af Amer) > 60, Random Glucose 209 H, Calcium 8.4, Phosphorus 3.2, Magnesium 1.6 L, Total Bilirubin 2.6 H, AST 212 H D, ALT 185 H, Alkaline Phosphatase 408 H , Total Protein 5.8, Albumin 2.8 L, Globulin 2.9, Albumin/Globulin Ratio 1.0 L 03/02/17 23:45: pO2 167 H, VBG pH 7.46 H, VBG pCO2 40.0, VBG HCO3 28.4 H, VBG Total CO2 29.6 H, VBG O2 Sat (Calc) 98.8 H, VBG Base Excess 4.2 H, VBG Potassium 3.6, Sodium 127.0 L, Chloride 94.0 L, Glucose 222 H, Lactate 2.3 H, FiO2 21.0, Venous Blood Potassium 3.6 03/02/17 23:45: PT 13.6 H, INR 1.24 H, APTT 33.8 03/02/17 23:45: WBC 15.0 H D, RBC 2.95 L, Hgb 9.5 L, Hct 28.1 L, MCV 95.3 D, MCH 32.2, MCHC 33.8, RDW 13.5, Plt Count 275, MPV 9.3, Gran % 92.8 H, Lymph % ( Auto) 2.4 L, Lynn % (Auto) 4.7, Eos % (Auto) 0.0 L, Baso % (Auto) 0.1, Gran # 13.90 H, Lymph # 0.4 L, Lynn # 0.7 H, Eos # 0.0, Baso # 0.01, Neutrophils % ( Manual) 85 H, Band Neutrophils % 9 H, Lymphocytes % (Manual) 2 L, Monocytes % ( Manual) 4, Platelet Evaluation Normal - RAD Interpretation Radiology Orders: 03/02/17 23:30 CHEST PORTABLE [RAD] Stat - Medication Orders Current Medication Orders: Acetaminophen (Tylenol 325mg Tab) 650 mg PO Q4H PRN PRN Reason: Pain, Mild (1-3) Sodium Chloride (Sodium Chloride 0.9%) 1,000 mls @ 150 mls/hr IV .Q6H40M [facility] Last Admin: 03/03/17 04:24 Dose: 150 mls/hr eMAR Start Stop Document 03/03/17 04:24 SC (Rec: 03/03/17 04:24 SC [id number]) Intravenous Solution Start Date 03/03/17 Start Time 04:24 Discontinued Medications Vancomycin HCl (Vancomycin 1gm) 1 gm in 250 mls @ 167 mls/hr IVPB STAT STA PRN Reason: Protocol Stop: 03/03/17 01:15 Last Admin: 03/03/17 00:15 Dose: 167 mls/hr eMAR Start Stop Document 03/03/17 00:15 IT (Rec: 03/03/17 00:18 IT [id number]) Intravenous Solution Start Date 03/03/17 Start Time 00:17 End Date 03/03/17 End time 01:50 Total Infusion Time 93 Sodium Chloride (Sodium Chloride 0.9%) 1,000 mls @ 999 mls/hr IV .Q1H1M STA Stop: 03/03/17 01:31 Last Admin: 03/03/17 00:41 Dose: 999 mls/hr eMAR Start Stop Document 03/03/17 00:41 IT (Rec: 03/03/17 00:41 IT [id number]) Intravenous Solution Start Date 03/03/17 Start Time 00:41 End Date 03/03/17 End time 01:41 Total Infusion Time 60 Sodium Chloride 1,000 ml/ IV (SUPPLIES) 1,000 mls @ 4,844.34 mls/hr IV ONCE ONE PRN Reason: 60 ML/KG/HR Stop: 03/03/17 00:49 Last Admin: 03/03/17 02:33 Dose: Sodium Chloride 1,000 ml/ IV (SUPPLIES) 1,000 mls @ 2,422.17 mls/hr IV ONCE ONE PRN Reason: 30 ML/KG/HR Stop: 03/03/17 00:46 Last Admin: 03/03/17 02:44 Dose: 2,422.17 mls/hr eMAR Start Stop Document 03/03/17 02:44 IT (Rec: 03/03/17 02:44 IT [id number]) Intravenous Solution Start Date 03/02/17 Start Time 00:46 Meropenem (Merrem Iv 1 Gm Premix) 100 mls @ 100 mls/hr IVPB STAT STA PRN Reason: Protocol Stop: 03/03/17 05:11 Sodium Chloride 2,400 ml/ IV (SUPPLIES) 2,400 mls @ 4,844.34 mls/hr IV ONCE ONE PRN Reason: 60 ML/KG/HR Stop: 03/03/17 04:57 Disposition/Present on Arrival - Present on Arrival Any Indicators Present on Arrival: No History of DVT/PE: No History of Uncontrolled Diabetes: Yes Urinary Catheter: No History of Decub. Ulcer: Yes History Surgical Site Infection Following: Orthopedic Procedures - Disposition Have Diagnosis and Disposition been Completed?: Yes Disposition Time: 05:20 Patient Plan: Discharge - Disposition Diagnosis: Hypotension, Fever Disposition: HOSPITALIZED Condition: CRITICAL
[2017-03-03 00:12] LABS: BASO # 0.01 K/mm3 (0.0-2.0); BASO % 0.1 % (0.0-3.0); GRAN % 92.8 % (50.0-68.0); HEMATOCRIT 28.1 % (42.0-52.0); LYMPH # 0.4 (1.2-3.4); LYMPH % 2.4 % (22.0-35.0); MEAN CORPUSCULAR HEMOGLOBIN 32.2 pg (25.0-35.0); MEAN CORPUSCULAR HGB CONC 33.8 g/dl (31.0-37.0); MEAN PLATELET VOLUME 9.3 fl (7.0-11.0); MONO # 0.7 (0.1-0.6); MONO % 4.7 % (1.0-6.0); PLATELET COUNT 275 10^3/uL (120.0-450.0); RED CELL DISTRIBUTION WIDTH 13.5 % (11.5-14.5)
[2017-03-03 00:14] LABS: MEAN CELL VOLUME 95.3 fl (80.0-105.0)
[2017-03-03 00:25] LABS: VENOUS BLOOD GAS BASE EXCESS 4.2 mmol/L (0.0-2.0); VENOUS BLOOD PH 7.46 (7.32-7.43)
[2017-03-03 00:27] LABS: ALKALINE PHOSPHATASE 408 U/L (38-126); ALT/SGPT 185 U/L (7-56); AST/SGOT 212 U/L (17-59); BILIRUBIN,TOTAL 2.6 mg/dL (0.2-1.3); BLOOD UREA NITROGEN 17 mg/dL (7-21); CALCIUM 8.4 mg/dL (8.4-10.5); CARBON DIOXIDE 28 mmol/L (21-33); CHLORIDE 92 mmol/L (98-107); GFR AFRICAN-AMERICAN > 60; GLUCOSE,RANDOM 209 mg/dL (70-110); MAGNESIUM 1.6 mg/dL (1.7-2.2); PHOSPHOROUS 3.2 mg/dL (2.5-4.5); POTASSIUM 3.5 mmol/L (3.6-5.0); SODIUM 126 mmol/L (132-148); TOTAL PROTEIN 5.8 g/dL (5.8-8.3)
[2017-03-03 00:29] LABS: INR 1.24 (0.93-1.08); PARTIAL THROMBOPLASTIN TIME 33.8 Seconds (25.1-36.5)
[2017-03-03] MEDS ORDERED: Sodium Chloride 0.9% 1,000 ML IV STA ×2 (00:31→02:32)
[2017-03-03 02:45] LABS: URINE BILIRUBIN NEGATIVE (NEGATIVE); URINE BLOOD NEGATIVE (NEGATIVE); URINE GLUCOSE (UA) 100 mg/dL (NEGATIVE); URINE KETONE NEGATIVE (NEGATIVE); URINE LEUKOCYTE ESTERASE NEGATIVE Leu/uL (NEGATIVE); URINE PROTEIN NEGATIVE mg/dL (<30 mg/dL); URINE UROBILINOGEN 0.2 E.U./dL (<1 E.U./dL)
[2017-03-03 02:54] LABS: NEUTROPHIL 85 % (50.0-70.0)
[2017-03-03 02:55] LABS: BAND 9 % (0-2); PLATELET ESTIMATE NORMAL (NORMAL)
[2017-03-03 02:56] LABS: URINE APPEARANCE CLEAR (CLEAR); URINE COLOR YELLOW (YELLOW)
[2017-03-03] MEDS ORDERED: Meropenem IV 1 gm in NS 100 ML IVPB STA (04:12)
[2017-03-03] MEDS: Sodium Chloride 0.9% 1,000 ML IV SCH ×3 (04:24→20:04)
[2017-03-03 05:43] LABS: VENOUS BLOOD GAS BASE EXCESS 1.2 mmol/L (0.0-2.0); VENOUS BLOOD PH 7.35 (7.32-7.43)
[2017-03-03] MEDS ORDERED: Dextrose 50% SYRINGE Inj (50 ml) IVP STA (05:56)
--- NOTE | 2017-03-03 08:01 | RAD ---
HISTORY: Sepsis Patient COMPARISON: 02/07/2017 FINDINGS: LUNGS: No active pulmonary disease. PLEURA: No significant pleural effusion identified, no pneumothorax apparent. CARDIOVASCULAR: The heart is normal in size. There is mild vascular congestion OSSEOUS STRUCTURES: Sternal wires are seen VISUALIZED UPPER ABDOMEN: Normal. OTHER FINDINGS: None. IMPRESSION: No active disease.
[2017-03-03 08:04] LABS: BASO # 0.01 K/mm3 (0.0-2.0); BASO % 0.1 % (0.0-3.0); EOS # 0.1 (0.0-0.7); EOS % 0.6 % (1.5-5.0); GRAN # 14.22 (1.4-6.5); GRAN % 88.6 % (50.0-68.0); HEMATOCRIT 30.2 % (42.0-52.0); LYMPH # 0.8 (1.2-3.4); LYMPH % 5.1 % (22.0-35.0); MEAN CELL VOLUME 96.5 fl (80.0-105.0); MEAN CORPUSCULAR HEMOGLOBIN 31.9 pg (25.0-35.0); MEAN CORPUSCULAR HGB CONC 33.1 g/dl (31.0-37.0); MEAN PLATELET VOLUME 9.5 fl (7.0-11.0); MONO # 0.9 (0.1-0.6); MONO % 5.6 % (1.0-6.0); RED CELL DISTRIBUTION WIDTH 13.6 % (11.5-14.5)
[2017-03-03] MEDS ORDERED: Dextrose 50% SYRINGE Inj (50 ml) ONE (08:12)
[2017-03-03 08:51] LABS: ALB/GLOB RATIO 0.9 (1.1-1.8); ALKALINE PHOSPHATASE 402 U/L (38-126); ALT/SGPT 154 U/L (7-56); AST/SGOT 163 U/L (17-59); BILIRUBIN,TOTAL 2.6 mg/dL (0.2-1.3); BLOOD UREA NITROGEN 15 mg/dL (7-21); CALCIUM 8.3 mg/dL (8.4-10.5); CARBON DIOXIDE 28 mmol/L (21-33); CHLORIDE 99 mmol/L (98-107); GFR AFRICAN-AMERICAN > 60; POTASSIUM 2.8 mmol/L (3.6-5.0); SODIUM 133 mmol/L (132-148); TOTAL PROTEIN 5.8 g/dL (5.8-8.3)
[2017-03-03] MEDS ORDERED: Dextrose 50% SYRINGE Inj (50 ml) IVP ONE (08:56)
[2017-03-03 09:03] LABS: GLUCOSE,RANDOM 34 mg/dL (70-110)
--- NOTE | 2017-03-03 09:52 | CARD ---
APPROVED REPORT EKG Measurement Heart [id number] <Conclusion> Normal sinus rhythm Right bundle branch block Left anterior fascicular block Bifascicular block Lateral infarct, age undetermined Abnormal ECG
[2017-03-03] MEDS: Insulin Reg-HIGH-Coverage SC SCH ×3 (11:30→21:56)
[2017-03-03] MEDS ORDERED: Vancomycin 2 GM in Sodium Chloride 0.9% 500 ML IVPB ONE (12:52)
[2017-03-03] MEDS: Cefepime 1gm in NS 100ml 1 GM/100 ML BAG IVPB SCH ×2 (13:54→21:38)
[2017-03-03] MEDS: Amylase/Lipase/Protease 5,000 Units ECC PO SCH ×2 (13:54→17:48)
--- NOTE | 2017-03-03 14:27 | CON ---
DATE: CHIEF COMPLAINT: Lower extremity edema and erythema times several days. HISTORY OF PRESENT ILLNESS: This is a 76-year-old male with past medical history significant for diabetes mellitus, long time ex-smoker, who has had common bile duct dilatation in the past, has had MRCP and an EUS, which revealed a pancreatic head mass, had percutaneous biliary drainage, who is admitted on this admission with diagnoses of cellulitis and sepsis. The patient was in the hospital in December and on 02/08/2017, the patient had a left hip fracture and surgery. The patient was seen in the emergency room and was seen by Dr. Merrick Milton. In the emergency room, the patient had fever of 101 according to his note and in the ER was found to have 15,000 white count. The patient states he has mild shortness of breath and mild cough. No abdominal pain. No headaches or blurred vision, lower extremity edema and erythema. PAST MEDICAL HISTORY: Significant for coronary artery disease, diabetes mellitus, pancreatic mass, and biliary tree stent. PAST SURGICAL HISTORY: Significant for recent left hip surgery in January for a fracture, open heart surgery in 2011 , and cardiac stents. ALLERGIES: THE PATIENT HAS NO KNOWN ALLERGIES. MEDICATIONS AT HOME: Include the patient to be on insulin, oxycodone, Faaxnebk-[id number]-Gpmtuh capsule, insulin, and Colace. PHYSICAL EXAMINATION: GENERAL: On exam, the patient is in bed, chronically ill. He appears much older than his stage age. VITAL SIGNS: Temperature of 99, T-max of 100, heart rate of 80, it was up to 105 heart rate, respiratory rate 18, it was up to 24 on admission with blood pressure of 97/60, it was down to 88/46. HEENT: Unremarkable. NECK: Supple. LUNGS: Decreased breath sounds. HEART: Normal S1 and S2. ABDOMEN: Soft. No rebound or guarding. EXTREMITIES: Examination of the lower extremity reveals erythema and edema in both lower extremities. No break in the skin. No discharge. Pulses are intact. LABORATORY DATA: Examination reveals a white count of 15,000, hemoglobin of 9, and platelets of 275. The patient has 9% bandemia and coagulation is noted. BUN of 15 and creatinine of 0.8. LFTs are elevated with alkaline phosphatase elevation. Urinalysis is unremarkable. Microbiology is pending. The patient had a chest x-ray. No active disease. Review of microbiology from previous admissions reveals jonna albicans in the bile. The patient also had a C diff antigen and toxin negative. ASSESSMENT AND PLAN: This is a 76-year-old male with diabetes mellitus, coronary artery disease, common bile duct dilatation, magnetic resonance cholangiopancreatography, endoscopic ultrasound, pancreatic head mass, and recent left hip fracture and surgery now presenting with fevers, tachycardia, dyspnea, lower extremity edema, liver function tests elevation, severe sepsis with hypotension and responded to fluids with bilateral lower extremity cellulitis and must rule out biliary tree as a cause in a patient with acute systolic congestive heart failure on top of congestive heart failure. We will give one dose of vancomycin and start Maxipime. Pending blood cultures and urine cultures, clinical response of the lower extremity and we will follow closely with you. Jose David Gracia MD
[2017-03-03 17:33] VITALS: BMI 26.4
[2017-03-03 20:00] LABS: ALB/GLOB RATIO 0.9 (1.1-1.8); ALKALINE PHOSPHATASE 336 U/L (38-126); ALT/SGPT 119 U/L (7-56); AST/SGOT 95 U/L (17-59); BILIRUBIN,TOTAL 1.9 mg/dL (0.2-1.3); BLOOD UREA NITROGEN 15 mg/dL (7-21); CARBON DIOXIDE 24 mmol/L (21-33); CHLORIDE 100 mmol/L (98-107); GFR AFRICAN-AMERICAN > 60; GLUCOSE,RANDOM 180 mg/dL (70-110); SODIUM 129 mmol/L (132-148); TOTAL PROTEIN 5.3 g/dL (5.8-8.3)
[2017-03-03] MEDS ORDERED: Insulin Detemir 100 units/ml Vial (Levemir) SC SCH (22:00)
--- NOTE | 2017-03-04 01:35 | CON ---
CONSULTATION DATE: 03/03/2017 CHIEF COMPLAINT: Urinary retention, weakness, also fever. HISTORY OF PRESENT ILLNESS: This is a 76-year-old male who is a resident of [facility]. The patient has a history of metastatic pancreatic cancer. He had a recent hip fracture. The patient was admitted to the hospital with a fever of 101 and a progressive lower extremity edema. During the hospitalization, the patient was found to have urinary retention. A bladder scan was done which showed over a liter in his bladder. A Lewis catheter was then placed and one liter was then drained. A consultation was then requested. The patient is awake, alert, and answering questions. He does report prior episodes of urinary retention. He denies any dysuria or gross hematuria prior to this admission. PAST MEDICAL HISTORY: Significant for pancreatic cancer, coronary artery disease, diabetes. MEDICATIONS: Include insulin coverage, Levemir, Maxipime, Motrin, Pancreaze, Percocet and Tylenol. ALLERGIES: NO KNOWN DRUG ALLERGIES. FAMILY HISTORY: Noncontributory. SOCIAL HISTORY: The patient denies any smoking or EtOH use. REVIEW OF SYSTEMS: Positives include weakness, lethargy, lower extremity swelling, urinary retention, fever, chills. Denies any chest pains or shortness of breath. Other systems are negative. PHYSICAL EXAMINATION: GENERAL: The patient is seen in his bed in the ICU. He is in no acute distress. VITAL SIGNS: He is currently afebrile, although he did have a fever on admission; blood pressure 112/48; pulse of 80; respirations of 16. NECK: Supple with no adenopathy. CHEST: Examination of the chest reveals a normal inspiratory effort. CARDIAC: Exam shows positive S1, S2. There is bzipsyul-[id number] peripheral edema noted. ABDOMEN: Soft. There appears to be ascites. There is no obvious mass. There is no rebound or guarding. : Phallus has 2+ edema. There is a Lewis catheter in place, draining clear urine. Scrotum is positive for edema. Testes bilaterally descended, nontender, no masses. Epididymis are normal. EXTREMITIES: Lower extremities is positive for edema. No cyanosis noted. LABORATORY EXAM: WBC count of 16, potassium low 2.8, creatinine 0.8 with a GFR of greater than 60. Urinalysis positive for glucose, negative for blood, negative for nitrites, negative for leukocytes. IMPRESSION AND PLAN: This is a 76-year-old male with reported metastatic pancreatic cancer. Urologically, the patient has urinary retention, a Lewis catheter has been placed. Plan will be to obtain urine and blood cultures to look for a source of infection given the fever that the patient presented with. I would continue the Lewis catheter for now as the patient appears that he will need diuresis. I will discuss plans for the Lewis catheter with his medical attending, Dr. Jeff. When the patient's condition has improved, we can consider starting Flomax and a voiding trial possibly given the patient's overall condition leaving him with an indwelling Lewis catheter at this point given that he had one liter in his bladder, it is unlikely that he will void adequately at this time. Thank you for allowing me to participate in the care of this patient. We will follow him with you. Nilson Guadalupe MD
[2017-03-04] MEDS: Oxycodone/Acetaminophen 5/325 mg Tab PO PRN ×2 (02:15→15:43)
[2017-03-04] MEDS: Cefepime 1gm in NS 100ml 1 GM/100 ML BAG IVPB SCH ×3 (05:16→22:25)
[2017-03-04 05:39] LABS: BASO # 0.01 K/mm3 (0.0-2.0); BASO % 0.1 % (0.0-3.0); EOS # 0.2 (0.0-0.7); EOS % 1.9 % (1.5-5.0); GRAN # 8.81 (1.4-6.5); GRAN % 85.6 % (50.0-68.0); HEMATOCRIT 28.3 % (42.0-52.0); LYMPH # 0.8 (1.2-3.4); LYMPH % 7.3 % (22.0-35.0); MEAN CELL VOLUME 95.9 fl (80.0-105.0); MEAN CORPUSCULAR HEMOGLOBIN 31.2 pg (25.0-35.0); MEAN CORPUSCULAR HGB CONC 32.5 g/dl (31.0-37.0); MEAN PLATELET VOLUME 9.7 fl (7.0-11.0); MONO # 0.5 (0.1-0.6); MONO % 5.1 % (1.0-6.0); RED CELL DISTRIBUTION WIDTH 13.7 % (11.5-14.5); WHITE BLOOD COUNT 10.3 10^3/ul (4.5-11.0)
[2017-03-04 06:25] LABS: ALB/GLOB RATIO 0.8 (1.1-1.8); ALKALINE PHOSPHATASE 320 U/L (38-126); ALT/SGPT 94 U/L (7-56); AST/SGOT 66 U/L (17-59); BILIRUBIN,TOTAL 1.2 mg/dL (0.2-1.3); BLOOD UREA NITROGEN 15 mg/dL (7-21); CALCIUM 7.9 mg/dL (8.4-10.5); CARBON DIOXIDE 26 mmol/L (21-33); CHLORIDE 103 mmol/L (98-107); GFR AFRICAN-AMERICAN > 60; GLUCOSE,RANDOM 52 mg/dL (70-110); POTASSIUM 3.3 mmol/L (3.6-5.0); SODIUM 133 mmol/L (132-148)
[2017-03-04] MEDS ORDERED: Dextrose 50% SYRINGE Inj (50 ml) ONE (08:12)
[2017-03-04] MEDS ORDERED: Dextrose 50% SYRINGE Inj (50 ml) IVP STA (08:19)
[2017-03-04] MEDS: Insulin Reg-HIGH-Coverage SC SCH ×4 (08:22→22:26)
[2017-03-04] MEDS: Potassium Chloride 20 mEq ER Tab PO SCH (09:41)
[2017-03-04] MEDS: Amylase/Lipase/Protease 5,000 Units ECC PO SCH ×3 (09:41→18:23)
--- NOTE | 2017-03-04 10:24 | CP.PCM.PN ---
Subjective - Date & Time of Evaluation Date of Evaluation: 03/04/17 Time of Evaluation: 09:40 - Subjective Subjective: Comfortable in bed, less pain in the feet, less leg swelling, no abdominal pain currently, no fevers overnight. Objective - Vital Signs/Intake and Output Vital Signs (last 24 hours): Temp Pulse Resp BP Pulse Ox 99.7 F H 85 13 115/57 L 97 03/04/17 04:00 03/04/17 04:00 03/04/17 04:00 03/04/17 04:00 03/04/17 04:00 Intake and Output: 03/03/17 03/04/17 18:59 06:59 Intake Total 1150 300 Output Total 3000 2000 Balance -1850 -1700 - Medications Medications: Current Medications Acetaminophen (Tylenol 325mg Tab) 650 mg PO Q4H PRN PRN Reason: Pain, Mild (1-3) Amylase (Pancrease [id number] U-5000 [id number] U) 5,000 u PO TID [facility] Last Admin: 03/03/17 17:48 Dose: 5,000 u Cefepime HCl (Maxipime 1gm) 1 gm in 100 mls @ 100 mls/hr IVPB Q8 BARBIE PRN Reason: Protocol Stop: 03/12/17 14:01 Last Admin: 03/04/17 05:16 Dose: 100 mls/hr Sodium Chloride (Sodium Chloride 0.9%) 1,000 mls @ 50 mls/hr IV .Q20H BARBIE Last Admin: 03/03/17 20:04 Dose: 50 mls/hr Ibuprofen (Motrin Tab) 400 mg PO Q6H PRN PRN Reason: Fever >100.4 F Last Admin: 03/03/17 10:56 Dose: 400 mg Insulin Detemir (Levemir) 15 unit SC HS BARBIE Last Admin: 03/03/17 21:59 Dose: 15 unit Insulin Human Regular (Humulin R High) 0 units SC ACHS BARBIE PRN Reason: Protocol Last Admin: 03/03/17 21:56 Dose: Not Given Oxycodone/Acetaminophen (Percocet 5/325 Mg Tab) 1 tab PO Q4H PRN PRN Reason: Pain, Mild (1-3) Stop: 03/06/17 11:53 Last Admin: 03/04/17 02:15 Dose: 1 tab - Labs Labs: 03/04/17 05:10 03/04/17 05:10 PT 13.6 SECONDS (9.4-12.5) H 03/02/17 23:45 INR 1.24 (0.93-1.08) H 03/02/17 23:45 APTT 33.8 Seconds (25.1-36.5) 03/02/17 23:45 - Constitutional Appears: Non-toxic, Chronically Ill - Head Exam Head Exam: NORMAL INSPECTION - Respiratory Exam Respiratory Exam: absent: Decreased Breath Sounds - Cardiovascular Exam Cardiovascular Exam: +S1, +S2 - GI/Abdominal Exam GI & Abdominal Exam: Soft. absent: Tenderness - Extremities Exam Extremities Exam: Pedal Edema Additional comments: left heel with dressings in place Assessment and Plan - Assessment and Plan (Free Text) Plan: Assessment severe sepsis (with fluid-responsive hypotension) due to bilateral lower extremity cellulitis, R/O biliary tree infection acute on chronic CHF in this patient with CAD pancreatic head mass, S/P EUS and percutaneous drain placement S/P biliary stent placement DM recent left hip fracture S/P surgery Plan has been given a dose of IV Vancomycin and will continue cefepime (day 2) pending final culture results (blood cx negative x 24 hours); will get left foot xray will continue to monitor clinically
--- NOTE | 2017-03-04 12:16 | RAD ---
PROCEDURE: Left Foot Radiographs. HISTORY: rule out osteomyelitis COMPARISON: None. FINDINGS: BONES: Normal. No fracture. JOINTS: Normal. SOFT TISSUES: Normal. OTHER FINDINGS: None. IMPRESSION: No acute findings
--- NOTE | 2017-03-04 13:29 | HP ---
CHIEF COMPLAINT: Erythema in the legs and fever. HISTORY OF PRESENT ILLNESS: This is a 76-year-old man, who certainly lost to follow up until just a few months ago, when he presented to my driveway, severely jaundiced, so one morning, he reported the history to be 6-7 months duration. He was admitted and worked up, pancreatic mass was discovered along with new onset diabetes. He was treated with and seen by Oncology and Surgery, went for surgical second opinion and now awaiting scheduling of Whipple procedure. In the interim, he had an unfortunate fall and fractured his hip and was at rehab facility, now he presented to the emergency room with bilateral erythema of lower extremities, also noted to have a markedly distended bladder when admitted to the floor and suggested to review that and was also noted by a student nurse to have a markedly distended bladder for which Lewis catheter was placed with more than 1 L of urine, residual and now an additional 3 L passed and what may be a post obstructive diuresis. PAST MEDICAL HISTORY: Significant for coronary artery bypass graft in 2011 and a lifetime smoking. ALLERGIES: HE HAS NO KNOWN MEDICAL ALLERGIES TO MEDICATIONS. SOCIAL HISTORY: He quit smoking in 2011, but occasionally does drink alcohol. MEDICATIONS: Up until recently was only aspirin 81 mg daily, but since his recent hospitalization and diagnosis, had been on pancreatic enzymes as well as insulin, analgesics p.r.n., and a stool softener. REVIEW OF SYSTEMS: Otherwise negative, but the patient tends to deny symptoms and downplay his condition. PHYSICAL EXAMINATION: GENERAL: The patient is seen this evening in Intensive Care Unit, ICU bed 4 with his granddaughter, a registered nurse, and currently at the bedside. The patient is awake, alert, clear,and appropriate. HEAD AND NECK: Unremarkable except for his conjunctivae is slightly icteric. NECK: Supple without masses. Thyroid is not palpable. LUNGS: Have good aeration, right and left, but decreased breath sounds, COPD. HEART: Regular, not tachycardic. ABDOMEN: Soft. Lewis catheter is in place. Bladder is not palpable. EXTREMITIES: Thin. There was significant edema in the lower extremities, which is markedly improved. There is some residual erythema present. LABORATORY DATA: On admission, his white count is markedly elevated at 15. Coags are slightly elevated with an INR of 1.2. Chemistries showed repeat low potassium of 2.8 and bilirubin of 2.6. IMPRESSION: 1. Cellulitis of lower extremities. 2. Hypokalemia. 3. Pancreatic cancer. 4. Diabetes. 5. Chronic obstructive pulmonary disease. PLAN: IV antibiotics, Lewis catheter, Urology consultation. Patient should be ready to leave Intensive Care anytime soon with continued antibiotics, follow up and then pursue definitive treatment of his pancreatic CA with Whipple procedure as had been [facility]. Rehan Jeff MD
[2017-03-04] MEDS: Sodium Chloride 0.9% 1,000 ML IV SCH (15:44)
[2017-03-04] MEDS: Insulin Detemir 100 units/ml Vial (Levemir) SC SCH (22:25)
[2017-03-05] MEDS: Oxycodone/Acetaminophen 5/325 mg Tab PO PRN ×3 (00:16→20:07)
[2017-03-05] MEDS: Cefepime 1gm in NS 100ml 1 GM/100 ML BAG IVPB SCH ×3 (05:23→22:24)
[2017-03-05 08:05] LABS: BASO # 0.02 K/mm3 (0.0-2.0); BASO % 0.2 % (0.0-3.0); EOS # 0.3 (0.0-0.7); GRAN # 6.95 (1.4-6.5); GRAN % 81.1 % (50.0-68.0); HEMATOCRIT 31.3 % (42.0-52.0); LYMPH # 0.8 (1.2-3.4); MEAN CELL VOLUME 96.6 fl (80.0-105.0); MEAN CORPUSCULAR HEMOGLOBIN 31.5 pg (25.0-35.0); MEAN CORPUSCULAR HGB CONC 32.6 g/dl (31.0-37.0); MEAN PLATELET VOLUME 9.9 fl (7.0-11.0); MONO # 0.6 (0.1-0.6); MONO % 6.7 % (1.0-6.0); RED CELL DISTRIBUTION WIDTH 13.6 % (11.5-14.5); WHITE BLOOD COUNT 8.6 10^3/ul (4.5-11.0)
[2017-03-05 08:25] LABS: ALB/GLOB RATIO 0.9 (1.1-1.8); ALKALINE PHOSPHATASE 347 U/L (38-126); ALT/SGPT 79 U/L (7-56); AST/SGOT 40 U/L (17-59); BLOOD UREA NITROGEN 12 mg/dL (7-21); CALCIUM 8.2 mg/dL (8.4-10.5); CARBON DIOXIDE 25 mmol/L (21-33); CHLORIDE 104 mmol/L (98-107); GFR AFRICAN-AMERICAN > 60; GLUCOSE,RANDOM 75 mg/dL (70-110); POTASSIUM 3.5 mmol/L (3.6-5.0); SODIUM 136 mmol/L (132-148); TOTAL PROTEIN 5.5 g/dL (5.8-8.3)
[2017-03-05] MEDS ORDERED: Vancomycin 2 GM in Sodium Chloride 0.9% 500 ML IVPB ONE (10:03)
[2017-03-05] MEDS: Potassium Chloride 20 mEq ER Tab PO SCH ×2 (10:15→18:00)
[2017-03-05] MEDS: Amylase/Lipase/Protease 5,000 Units ECC PO SCH ×3 (10:15→18:00)
[2017-03-05] MEDS: Insulin Reg-HIGH-Coverage SC SCH ×4 (11:18→22:23)
[2017-03-05] MEDS: Sodium Chloride 0.9% 1,000 ML IV SCH (14:35)
--- NOTE | 2017-03-05 17:56 | CP.PCM.PN ---
Subjective - Date & Time of Evaluation Date of Evaluation: 03/05/17 Time of Evaluation: 11:20 - Subjective Subjective: No fevers, no diarrhea, no SOB, no cough. Objective - Vital Signs/Intake and Output Vital Signs (last 24 hours): Temp Pulse Resp BP Pulse Ox 97.0 F L 76 19 157/96 H 95 03/05/17 06:00 03/05/17 06:00 03/05/17 06:00 03/05/17 06:00 03/05/17 06:00 Intake and Output: 03/05/17 03/05/17 06:59 18:59 Intake Total 890 Output Total 1700 Balance -810 - Medications Medications: Current Medications Acetaminophen (Tylenol 325mg Tab) 650 mg PO Q4H PRN PRN Reason: Pain, Mild (1-3) Amylase (Pancrease 97920 U-5000 U-16671 U) 5,000 u PO TID [facility] Last Admin: 03/04/17 18:23 Dose: 5,000 u Cefepime HCl (Maxipime 1gm) 1 gm in 100 mls @ 100 mls/hr IVPB Q8 [facility]BI[facility] PRN Reason: Protocol Stop: 03/12/17 14:01 Last Admin: 03/05/17 05:23 Dose: 100 mls/hr Sodium Chloride (Sodium Chloride 0.9%) 1,000 mls @ 50 mls/hr IV .Q20H [facility] Last Admin: 03/04/17 15:44 Dose: 50 mls/hr Vancomycin HCl 2 gm/ Sodium (Chloride) 500 mls @ 170 mls/hr IVPB ONCE ONE PRN Reason: Protocol Stop: 03/05/17 12:59 Ibuprofen (Motrin Tab) 400 mg PO Q6H PRN PRN Reason: Fever >100.4 F Last Admin: 03/04/17 20:43 Dose: 400 mg Insulin Detemir (Levemir) 5 unit SC HS [facility] Last Admin: 03/04/17 22:25 Dose: 5 unit Insulin Human Regular (Humulin R High) 0 units SC ACHS [facility] PRN Reason: Protocol Last Admin: 03/04/17 22:26 Dose: Not Given Mupirocin (Bactroban Ointment) 0 gm TOP BID [facility] Last Admin: 03/04/17 18:57 Dose: 1 unit Oxycodone/Acetaminophen (Percocet 5/325 Mg Tab) 1 tab PO Q4H PRN PRN Reason: Pain, Mild (1-3) Stop: 03/06/17 11:53 Last Admin: 03/05/17 07:37 Dose: 1 tab Potassium Chloride (K-Dur 20 Meq Er Tab) 20 meq PO BID [facility] Last Admin: 03/04/17 09:41 Dose: 20 meq - Labs Labs: 03/05/17 07:25 03/05/17 07:25 PT 13.6 SECONDS (9.4-12.5) H 03/02/17 23:45 INR 1.24 (0.93-1.08) H 03/02/17 23:45 APTT 33.8 Seconds (25.1-36.5) 03/02/17 23:45 - Constitutional Appears: Non-toxic - Head Exam Head Exam: NORMAL INSPECTION - Neck Exam Neck Exam: absent: Meningismus - Respiratory Exam Respiratory Exam: Decreased Breath Sounds - Cardiovascular Exam Cardiovascular Exam: +S1, +S2 - GI/Abdominal Exam GI & Abdominal Exam: Soft. absent: Tenderness Assessment and Plan - Assessment and Plan (Free Text) Plan: Assessment severe sepsis (with fluid-responsive hypotension) due to Staph aureus bacteremia , R/O due to bilateral lower extremity cellulitis but need to rule out other sources such as endocarditis, R/O biliary tree infection acute on chronic CHF in this patient with CAD pancreatic head mass, S/P EUS and percutaneous drain placement S/P biliary stent placement DM recent left hip fracture S/P surgery Plan has been given a dose of IV Vancomycin but will continue this (give a loading dose again today and then maintenance dose) and will continue cefepime (day 3) pending final sensitivities of the Staph aureus in the blood - will repeat blood cx - concerning for endocarditis since 4 out of 4 bottles are positive - will get 2D echo first but may need KIKE especially if bacteremia is persistent; follow up left foot xray will continue to monitor clinically
[2017-03-05] MEDS: Insulin Detemir 100 units/ml Vial (Levemir) SC SCH (22:28)
[2017-03-06] MEDS: Cefepime 1gm in NS 100ml 1 GM/100 ML BAG IVPB SCH (05:31)
[2017-03-06 08:10] LABS: BASO # 0.02 K/mm3 (0.0-2.0); BASO % 0.2 % (0.0-3.0); EOS # 0.3 (0.0-0.7); EOS % 3.2 % (1.5-5.0); GRAN # 6.33 (1.4-6.5); GRAN % 76.7 % (50.0-68.0); HEMATOCRIT 31.5 % (42.0-52.0); LYMPH # 0.9 (1.2-3.4); LYMPH % 11.3 % (22.0-35.0); MEAN CORPUSCULAR HEMOGLOBIN 31.1 pg (25.0-35.0); MEAN CORPUSCULAR HGB CONC 32.4 g/dl (31.0-37.0); MEAN PLATELET VOLUME 9.7 fl (7.0-11.0); MONO # 0.7 (0.1-0.6); MONO % 8.6 % (1.0-6.0); RED CELL DISTRIBUTION WIDTH 13.7 % (11.5-14.5); WHITE BLOOD COUNT 8.3 10^3/ul (4.5-11.0)
[2017-03-06 08:32] LABS: ALB/GLOB RATIO 0.9 (1.1-1.8); ALKALINE PHOSPHATASE 350 U/L (38-126); ALT/SGPT 63 U/L (7-56); AST/SGOT 33 U/L (17-59); BILIRUBIN,TOTAL 0.9 mg/dL (0.2-1.3); BLOOD UREA NITROGEN 10 mg/dL (7-21); CALCIUM 8.2 mg/dL (8.4-10.5); CARBON DIOXIDE 26 mmol/L (21-33); CHLORIDE 100 mmol/L (98-107); GFR AFRICAN-AMERICAN > 60; GLUCOSE,RANDOM 201 mg/dL (70-110); POTASSIUM 3.6 mmol/L (3.6-5.0); SODIUM 134 mmol/L (132-148); TOTAL PROTEIN 5.6 g/dL (5.8-8.3)
[2017-03-06] MEDS: Insulin Reg-HIGH-Coverage SC SCH ×4 (08:46→22:51)
[2017-03-06] MEDS: Amylase/Lipase/Protease 5,000 Units ECC PO SCH ×3 (10:38→17:29)
[2017-03-06] MEDS: Potassium Chloride 20 mEq ER Tab PO SCH ×2 (10:38→17:28)
[2017-03-06] MEDS: Vancomycin 1gm in NS 250ml 1 GM/250 ML BAG IVPB SCH ×2 (10:38→22:54)
--- NOTE | 2017-03-06 17:07 | CP.PCM.PN ---
Subjective - Date & Time of Evaluation Date of Evaluation: 03/06/17 Time of Evaluation: 11:00 - Subjective Subjective: Still with swollen feet and legs but a little better, no fevers overnight, no chest pain, no SOB, no cough, no abdominal pain, no diarrhea. Objective - Vital Signs/Intake and Output Vital Signs (last 24 hours): Temp Pulse Resp BP Pulse Ox 97.0 F L 72 19 157/96 H 95 03/05/17 06:00 03/06/17 06:00 03/05/17 06:00 03/05/17 06:00 03/05/17 06:00 Intake and Output: 03/06/17 03/06/17 06:59 18:59 Intake Total 600 Output Total 0 Balance 600 - Medications Medications: Current Medications Acetaminophen (Tylenol 325mg Tab) 650 mg PO Q4H PRN PRN Reason: Pain, Mild (1-3) Amylase (Pancrease 91480 U-5000 U-32348 U) 5,000 u PO TID [facility] Last Admin: 03/05/17 18:00 Dose: 5,000 u Cefepime HCl (Maxipime 1gm) 1 gm in 100 mls @ 100 mls/hr IVPB Q8 BARBI[facility] PRN Reason: Protocol Stop: 03/12/17 14:01 Last Admin: 03/06/17 05:31 Dose: 100 mls/hr Sodium Chloride (Sodium Chloride 0.9%) 1,000 mls @ 50 mls/hr IV .Q20H [facility] Last Admin: 03/05/17 14:35 Dose: 50 mls/hr Vancomycin HCl (Vancomycin 1gm) 1 gm in 250 mls @ 167 mls/hr IVPB Q12H [facility] PRN Reason: Protocol Ibuprofen (Motrin Tab) 400 mg PO Q6H PRN PRN Reason: Fever >100.4 F Last Admin: 03/04/17 20:43 Dose: 400 mg Insulin Detemir (Levemir) 5 unit SC HS [facility] Last Admin: 03/05/17 22:28 Dose: 5 unit Insulin Human Regular (Humulin R High) 0 units SC ACHS [facility] PRN Reason: Protocol Last Admin: 03/06/17 08:46 Dose: 2 units Mupirocin (Bactroban Ointment) 0 gm TOP BID [facility] Last Admin: 12/09/17 14:49 Dose: Not Given Oxycodone/Acetaminophen (Percocet 5/325 Mg Tab) 1 tab PO Q4H PRN PRN Reason: Pain, Mild (1-3) Stop: 03/06/17 11:53 Last Admin: 03/05/17 20:07 Dose: 1 tab Potassium Chloride (K-Dur 20 Meq Er Tab) 20 meq PO BID [facility] Last Admin: 03/05/17 18:00 Dose: 20 meq - Labs Labs: 03/06/17 07:30 03/06/17 07:30 PT 13.6 SECONDS (9.4-12.5) H 03/02/17 23:45 INR 1.24 (0.93-1.08) H 03/02/17 23:45 APTT 33.8 Seconds (25.1-36.5) 03/02/17 23:45 - Constitutional Appears: Non-toxic, Chronically Ill - Head Exam Head Exam: NORMAL INSPECTION - ENT Exam ENT Exam: Mucous Membranes Moist - Neck Exam Neck Exam: absent: Meningismus - Respiratory Exam Respiratory Exam: Decreased Breath Sounds - Cardiovascular Exam Cardiovascular Exam: +S1, +S2 - GI/Abdominal Exam GI & Abdominal Exam: Soft. absent: Tenderness - Extremities Exam Extremities Exam: Pedal Edema Assessment and Plan - Assessment and Plan (Free Text) Plan: Assessment severe sepsis (with fluid-responsive hypotension) due to Staph aureus bacteremia , R/O due to bilateral lower extremity cellulitis but need to rule out other sources such as endocarditis, R/O biliary tree infection acute on chronic CHF in this patient with CAD pancreatic head mass, S/P EUS and percutaneous drain placement S/P biliary stent placement DM recent left hip fracture S/P surgery Plan will continue IV Vancomycin (given a loading dose yesterday and then now on maintenance dose and will get Vanco trough tomorrow) and will discontinue cefepime - follow up repeat blood cx from yesterday - concerning for endocarditis since 4 out of 4 bottles are positive - follow up 2D echo results but may need KIKE especially if bacteremia is persistent; left foot xray does not show osteomyelitis will continue to monitor clinically
[2017-03-06] MEDS: Sodium Chloride 0.9% 1,000 ML IV SCH (17:30)
[2017-03-06] MEDS: Insulin Detemir 100 units/ml Vial (Levemir) SC SCH (22:53)
[2017-03-07] MEDS: Sodium Chloride 0.9% 1,000 ML IV SCH (04:00)
[2017-03-07 06:29] LABS: BASO # 0.02 K/mm3 (0.0-2.0); BASO % 0.3 % (0.0-3.0); EOS # 0.3 (0.0-0.7); EOS % 4.3 % (1.5-5.0); GRAN # 5.71 (1.4-6.5); GRAN % 71.9 % (50.0-68.0); HEMATOCRIT 27.9 % (42.0-52.0); LYMPH % 12.3 % (22.0-35.0); MEAN CELL VOLUME 95.5 fl (80.0-105.0); MEAN CORPUSCULAR HEMOGLOBIN 31.2 pg (25.0-35.0); MEAN CORPUSCULAR HGB CONC 32.6 g/dl (31.0-37.0); MEAN PLATELET VOLUME 9.8 fl (7.0-11.0); MONO # 0.9 (0.1-0.6); MONO % 11.2 % (1.0-6.0); RED CELL DISTRIBUTION WIDTH 13.9 % (11.5-14.5); WHITE BLOOD COUNT 7.9 10^3/ul (4.5-11.0)
[2017-03-07 07:07] LABS: ALB/GLOB RATIO 0.8 (1.1-1.8); ALKALINE PHOSPHATASE 285 U/L (38-126); ALT/SGPT 48 U/L (7-56); AST/SGOT 29 U/L (17-59); BILIRUBIN,TOTAL 0.8 mg/dL (0.2-1.3); BLOOD UREA NITROGEN 11 mg/dL (7-21); CALCIUM 8.3 mg/dL (8.4-10.5); CARBON DIOXIDE 28 mmol/L (21-33); CHLORIDE 101 mmol/L (98-107); GFR AFRICAN-AMERICAN > 60; GLUCOSE,RANDOM 134 mg/dL (70-110); POTASSIUM 3.5 mmol/L (3.6-5.0); SODIUM 134 mmol/L (132-148); TOTAL PROTEIN 5.2 g/dL (5.8-8.3)
[2017-03-07] MEDS: Insulin Reg-HIGH-Coverage SC SCH ×4 (08:34→23:20)
[2017-03-07] MEDS: Potassium Chloride 20 mEq ER Tab PO SCH ×2 (09:31→17:02)
[2017-03-07] MEDS: Amylase/Lipase/Protease 5,000 Units ECC PO SCH ×3 (09:31→17:02)
[2017-03-07] MEDS: Vancomycin 1gm in NS 250ml 1 GM/250 ML BAG IVPB SCH ×2 (09:31→21:39)
--- NOTE | 2017-03-07 12:02 | CP.PCM.PN ---
Subjective - Date & Time of Evaluation Date of Evaluation: 03/07/17 Time of Evaluation: 10:30 - Subjective Subjective: Comfortable on a chair, still with leg swelling but a little less, no fevers overnight. No chest pain or SOB at rest. Objective - Vital Signs/Intake and Output Vital Signs (last 24 hours): Temp Pulse Resp BP Pulse Ox 98 F 64 20 118/71 98 03/07/17 08:09 03/07/17 08:09 03/07/17 08:09 03/07/17 08:09 03/07/17 08:09 Intake and Output: 03/07/17 03/07/17 06:59 18:59 Intake Total 780 Output Total 600 Balance 180 - Medications Medications: Current Medications Acetaminophen (Tylenol 325mg Tab) 650 mg PO Q4H PRN PRN Reason: Pain, Mild (1-3) Amylase (Pancrease 29182 U-5000 U-81233 U) 5,000 u PO TID [facility] Last Admin: 03/06/17 17:29 Dose: 5,000 u Sodium Chloride (Sodium Chloride 0.9%) 1,000 mls @ 50 mls/hr IV .Q20H [facility] Last Admin: 03/07/17 04:00 Dose: 50 mls/hr Vancomycin HCl (Vancomycin 1gm) 1 gm in 250 mls @ 167 mls/hr IVPB Q12H [facility] PRN Reason: Protocol Last Admin: 03/06/17 22:54 Dose: 167 mls/hr Ibuprofen (Motrin Tab) 400 mg PO Q6H PRN PRN Reason: Fever >100.4 F Last Admin: 03/07/17 06:03 Dose: 400 mg Insulin Detemir (Levemir) 5 unit SC HS [facility] Last Admin: 03/06/17 22:53 Dose: 5 unit Insulin Human Regular (Humulin R High) 0 units SC ACHS [facility] PRN Reason: Protocol Last Admin: 03/07/17 08:34 Dose: Not Given Mupirocin (Bactroban Ointment) 0 gm TOP BID [facility] Last Admin: 03/06/17 17:30 Dose: 1 unit Potassium Chloride (K-Dur 20 Meq Er Tab) 20 meq PO BID [facility] Last Admin: 03/06/17 17:28 Dose: 20 meq - Labs Labs: 03/07/17 05:30 03/07/17 05:30 PT 13.6 SECONDS (9.4-12.5) H 03/02/17 23:45 INR 1.24 (0.93-1.08) H 03/02/17 23:45 APTT 33.8 Seconds (25.1-36.5) 03/02/17 23:45 - Constitutional Appears: Chronically Ill - Head Exam Head Exam: NORMAL INSPECTION - ENT Exam ENT Exam: Mucous Membranes Moist - Neck Exam Neck Exam: absent: Meningismus - Respiratory Exam Respiratory Exam: Decreased Breath Sounds - Cardiovascular Exam Cardiovascular Exam: +S1, +S2 - GI/Abdominal Exam GI & Abdominal Exam: Soft. absent: Tenderness Assessment and Plan - Assessment and Plan (Free Text) Plan: Assessment severe sepsis (with fluid-responsive hypotension) due to methicillin-resistant Staph aureus bacteremia, R/O due to bilateral lower extremity cellulitis but need to rule out other sources such as endocarditis, R/O biliary tree infection acute on chronic CHF in this patient with CAD pancreatic head mass, S/P EUS and percutaneous drain placement S/P biliary stent placement DM recent left hip fracture S/P surgery Plan will continue IV Vancomycin (Vanco trough today is only 03/05 - will give an extra dose of 1 gm IV Vanco today) - repeat blood cx from 03/05 are negative so far; concerning for endocarditis since 4 out of 4 bottles are positive - follow up 2D echo results but may need KIKE; left foot xray does not show osteomyelitis will continue to monitor clinically
--- NOTE | 2017-03-07 14:22 | CARD ---
APPROVED REPORT EXAM: Two-dimensional and M-mode echocardiogram with Doppler and color Doppler. INDICATION 2D DIMENSIONS Left Atrium (2D)4.1 (1.6-4.0cm)IVSd0.9 (0.7-1.1cm) LVDd5.1 (3.9-5.9cm)PWd0.9 (0.7-1.1cm) LVDs4.5 (2.5-4.0cm)FS (%) 13.1 % LVEF (%)27.9 (>50%) M-Mode DIMENSIONS Left Atrium (MM)4.20 (2.5-4.0cm)Aortic Root3.30 (2.2-3.7cm) Aortic Cusp Exc.2.10 (1.5-2.0cm) Aortic Valve AoV Peak Rvipetvb451.0cm/Brady Peak GR.7mmHg Mitral Valve MV E Etdwofrf924.0cm/sMV E Peak Gr.111mmHgMV A Avqrrlkb23.5cm/s E/A ratio1.2 TDI Lateral E' Peak V7.70cm/sMedial E' Peak V6.24cm/sE/Lateral E'13.8 E/Medial E'17.0 Tricuspid Valve TR Peak Vxirbvsb218cb/sRAP ESZOKSXP98sbAxAL Peak Gr.48mmHg [id number] LEFT VENTRICLE The left ventricle is normal size. There is normal left ventricular wall thickness. The systolic function is moderately to severely impaired.EF-25 -30% There is mild to moderate hypokinesis in the apical anterior wall. Regional wall motion abnormalities noted. There is moderate global hypokinesis of the left ventricle. Transmitral Doppler flow pattern is Grade II-pseudonormal filling dynamics. No left ventricle thrombus noted on this study. There is no ventricular septal defect visualized. There is no left ventricular aneurysm. There is no mass noted in the left ventricle. RIGHT VENTRICLE The right ventricle is normal size. There is normal right ventricular wall thickness. The right ventricular systolic function is normal. ATRIA The left atrium is mildly dilated. The right atrium size is normal. The interatrial septum is intact with no evidence for an atrial septal defect. AORTIC VALVE The aortic valve is thickened but opens well. The aortic valve is moderately sclerotic. There is trace aortic regurgitation. There is no aortic valvular stenosis. There is no aortic valvular vegetation. MITRAL VALVE The mitral valve is thickened but opens well. Mitral annular calcification is mild to moderate. Mitral regurgitation is moderate. There is no mitral valve stenosis. There is no evidence of mitral valve prolapse. TRICUSPID VALVE The tricuspid valve leaflets are thickened , but open well. There is moderate tricuspid regurgitation.RVSP-18 mmof Hg There is no tricuspid valve stenosis. There is no tricuspid valve prolapse or vegetation. PULMONIC VALVE The pulmonic valve is mildly thickened. There is trace pulmonic valvular regurgitation. There is no pulmonic valvular stenosis. GREAT VESSELS The aortic root is normal in size. The ascending aorta is normal in size. The pulmonary artery is normal. The IVC is normal in size and collapses >50% with inspiration. PERICARDIAL EFFUSION There is no pleural effusion. There is no pericardial effusion. <Conclusion> The left ventricle is normal size. There is normal left ventricular wall thickness. The systolic function is moderately to severely impaired.EF-25 -30% There is trace aortic regurgitation. Mitral regurgitation is moderate. There is moderate tricuspid regurgitation.RVSP-18 mmof Hg The IVC is normal in size and collapses >50% with inspiration. There is no pericardial effusion. No Vegetation or thrombus noted.
--- NOTE | 2017-03-07 14:37 | RAD ---
PROCEDURE: Left Hip and pelvis X-ray Radiographs. HISTORY: left hip fracture COMPARISON: None. FINDINGS: BONES: There is a compression screw and lalitha in the left hip. There is separation of the lesser trochanter. There is normal alignment JOINTS: Normal. SOFT TISSUES: Normal. OTHER FINDINGS: None. IMPRESSION: There is a compression screw and lalitha in the left hip. There is separation of the lesser trochanter. There is normal alignment
[2017-03-07] MEDS ORDERED: Potassium Chloride 20 mEq ER Tab PO ONE (15:34)
[2017-03-07] MEDS ORDERED: Vancomycin 1gm in NS 250ml 1 GM/250 ML BAG IVPB ONE (17:00)
[2017-03-07] MEDS: Insulin Detemir 100 units/ml Vial (Levemir) SC SCH (21:39)
[2017-03-08 06:45] LABS: HEMATOCRIT 30.5 % (42.0-52.0); MEAN CELL VOLUME 96.2 fl (80.0-105.0); MEAN CORPUSCULAR HEMOGLOBIN 30.9 pg (25.0-35.0); MEAN CORPUSCULAR HGB CONC 32.1 g/dl (31.0-37.0); MEAN PLATELET VOLUME 10.1 fl (7.0-11.0); RED CELL DISTRIBUTION WIDTH 13.9 % (11.5-14.5); WHITE BLOOD COUNT 9.4 10^3/ul (4.5-11.0)
[2017-03-08 07:01] LABS: ALB/GLOB RATIO 0.9 (1.1-1.8); ALKALINE PHOSPHATASE 382 U/L (38-126); ALT/SGPT 51 U/L (7-56); AST/SGOT 45 U/L (17-59); BILIRUBIN,TOTAL 0.8 mg/dL (0.2-1.3); BLOOD UREA NITROGEN 10 mg/dL (7-21); CALCIUM 8.4 mg/dL (8.4-10.5); CARBON DIOXIDE 29 mmol/L (21-33); CHLORIDE 101 mmol/L (98-107); GFR AFRICAN-AMERICAN > 60; GLUCOSE,RANDOM 159 mg/dL (70-110); SODIUM 136 mmol/L (132-148); TOTAL PROTEIN 5.6 g/dL (5.8-8.3)
[2017-03-08 07:57] LABS: POTASSIUM 3.8 mmol/L (3.6-5.0)
[2017-03-08] MEDS: Insulin Reg-HIGH-Coverage SC SCH ×4 (08:26→21:49)
[2017-03-08] MEDS: Vancomycin 1gm in NS 250ml 1 GM/250 ML BAG IVPB SCH ×2 (10:03→21:52)
[2017-03-08] MEDS: Potassium Chloride 20 mEq ER Tab PO SCH ×2 (10:04→17:33)
[2017-03-08] MEDS: Amylase/Lipase/Protease 5,000 Units ECC PO SCH ×3 (10:04→17:33)
--- NOTE | 2017-03-08 18:57 | PN ---
DATE: 03/08/2017 SUBJECTIVE: The patient is seen in bed, in no acute distress. OBJECTIVE: VITAL SIGNS: Temperature is 98, blood pressure is 120/70, and respiratory rate of 18. HEENT: Unremarkable. NECK: Supple. LUNGS: Have decreased breath sounds. HEART: Normal S1 and S2. ABDOMEN: Soft and nontender. LABORATORY DATA: Reveals a white count of 9.4, hemoglobin of 9, BUN of 10, and creatinine of 0.7. Vancomycin trough is 12. Microbiology reveals the patient's initial blood cultures are methicillin-resistant Staph aureus with oxacillin, MARCIANO of 0.5 and vancomycin 0.5 also. Repeat blood cultures from 03/05/2017 are no growth. Review of orders reveals the patient to be on vancomycin with a vancomycin trough level of 12.9. ASSESSMENT AND PLAN: The patient is a 76-year-old male with severe sepsis with fluid responsive hypotension due to methicillin-resistant Staphylococcus aureus bacteremia, etiology of the source is not clear whether there is some cellulitis and endocarditis versus biliary tree, on vancomycin with repeat cultures negative from the 03/05/2017, today is day #4. Echo results that was read by , no vegetation or thrombus is noted; however, transthoracic echo, not esophageal. We will check on the sed rate and C-reactive protein, today is day #4, would need minimum of 21 days of antibiotics with a sed rate of 42 and C-reactive protein of greater than 15, must treat as deep seated infection with 21 to 28 days of antibiotics. Jose David Gracia MD
[2017-03-08] MEDS: Insulin Detemir 100 units/ml Vial (Levemir) SC SCH (21:49)
[2017-03-09 02:02] LABS: BASO # 0.02 K/mm3 (0.0-2.0); BASO % 0.2 % (0.0-3.0); EOS # 0.4 (0.0-0.7); EOS % 3.8 % (1.5-5.0); GRAN # 7.6 (1.4-6.5); GRAN % 75.7 % (50.0-68.0); HEMATOCRIT 31.4 % (42.0-52.0); LYMPH # 1.3 (1.2-3.4); LYMPH % 13.1 % (22.0-35.0); MEAN CORPUSCULAR HEMOGLOBIN 31.2 pg (25.0-35.0); MEAN CORPUSCULAR HGB CONC 32.5 g/dl (31.0-37.0); MEAN PLATELET VOLUME 9.7 fl (7.0-11.0); MONO # 0.7 (0.1-0.6); MONO % 7.2 % (1.0-6.0)
[2017-03-09 02:16] LABS: TROPONIN I < 0.01 ng/mL
[2017-03-09 02:21] LABS: ALB/GLOB RATIO 0.9 (1.1-1.8); ALKALINE PHOSPHATASE 375 U/L (38-126); ALT/SGPT 52 U/L (7-56); AST/SGOT 32 U/L (17-59); BILIRUBIN,TOTAL 0.9 mg/dL (0.2-1.3); BLOOD UREA NITROGEN 9 mg/dL (7-21); CALCIUM 8.5 mg/dL (8.4-10.5); CARBON DIOXIDE 29 mmol/L (21-33); CHLORIDE 99 mmol/L (98-107); GFR AFRICAN-AMERICAN > 60; GLUCOSE,RANDOM 140 mg/dL (70-110); MAGNESIUM 1.7 mg/dL (1.7-2.2); SODIUM 133 mmol/L (132-148)
--- NOTE | 2017-03-09 04:07 | PN ---
DATE: 03/08/2017 SUBJECTIVE: The patient was seen this Tuesday evening in room 365, bed 1 with his daughter, Doris at the bedside. He is awake, alert and in good spirits. Very much wanting to go home after his stay in the hospital. Labs were reviewed. Vitas signs checked. [facility] notes were reviewed and appreciated. I saw the patient on the date of admission. He has been followed early by Dr. Cody Jeff and came with consultants since that time. Echocardiogram was done today that was unremarkable, however, a KIKE is recommended by Infectious Disease loans consultant, has ultimate and definitive proof and therefore we will comply with their request and schedule KIKE for . After which time hopefully, the patient will be discharged to home on antibiotics and the cellulitis of the lower extremity is resolved and peripheral edema improved with cutting purulence and perhaps a gentle diuresis and then follow up with surgeon regarding Whipple for his pancreatic lesion. Of note is the 2 most recent blood cultures were negative. Not 4 positive bottles as reported earlier. Rehan Jeff MD MTDDani
[2017-03-09] MEDS: Insulin Reg-HIGH-Coverage SC SCH ×4 (08:40→22:18)
[2017-03-09] MEDS: Potassium Chloride 20 mEq ER Tab PO SCH ×2 (09:27→17:43)
[2017-03-09] MEDS: Amylase/Lipase/Protease 5,000 Units ECC PO SCH ×3 (09:27→17:44)
[2017-03-09] MEDS: Vancomycin 1gm in NS 250ml 1 GM/250 ML BAG IVPB SCH ×2 (09:28→22:22)
--- NOTE | 2017-03-09 10:33 | PN ---
DATE: 03/09/2017 SUBJECTIVE: Patient is seen in bed, in no acute distress, nontoxic. OBJECTIVE: VITAL SIGNS: On exam, temperature is 97, blood pressure is 120/70, respiratory rate of 16. HEENT: Unremarkable. NECK: Supple. LUNGS: Have decreased breath sounds. HEART: Normal S1 and S2. ABDOMEN: Soft, nontender. LABORATORY EXAMINATION: Reveals a white count of 10,000, hemoglobin of 10. Chemistries reveals BUN of 9, creatinine of 0.8. Urinalysis is noted. Vancomycin trough is 12.9. ASSESSMENT AND PLAN: This is a 76-year-old male with severe sepsis with fluid responsive hypotension to methicillin-resistant Staphylococcus aureus bacteremia, etiology of which is not clear. Endocarditis must be ruled out versus biliary tree which is less likely, and today is day #5 of vancomycin. The patient is scheduled for a PICC line placement and transesophageal echo today, would need 21 to 28 days of therapy. We will follow closely with you. Case discussed with nurse practitioner at length, and Dr. Jeff's note is reviewed. We will follow closely with you. Review of the cultures reveals that repeat blood cultures are negative from the 9th three days. However, two sets of blood cultures were positive for methicillin-resistant Staphylococcus aureus on 03/02/2017. Jose David Gracia MD
--- NOTE | 2017-03-09 19:41 | CON ---
DATE: 03/09/2017 REASON FOR CONSULTATION: Do KIKE to rule out endocarditis. BRIEF CLINICAL HISTORY: This is a 76-year-old male. The patient was seen, but learned that the patient was being followed by Dr. Valenzuela and Dr. Murillo. Has a history of bypass, so I will cancel the consult for myself and put the consult for Dr. Valenzuela and Dr. Murillo. Also, we will notify Dr. Valenzuela and Dr. Murillo. Jennifer Martinez MD
[2017-03-09] MEDS: Insulin Detemir 100 units/ml Vial (Levemir) SC SCH (22:21)
[2017-03-10 05:08] VITALS: RESP 20
[2017-03-10 06:26] LABS: HEMATOCRIT 29.3 % (42.0-52.0); MEAN CELL VOLUME 95.1 fl (80.0-105.0); MEAN CORPUSCULAR HEMOGLOBIN 30.8 pg (25.0-35.0); MEAN CORPUSCULAR HGB CONC 32.4 g/dl (31.0-37.0); MEAN PLATELET VOLUME 9.6 fl (7.0-11.0); RED CELL DISTRIBUTION WIDTH 14.1 % (11.5-14.5); WHITE BLOOD COUNT 8.3 10^3/ul (4.5-11.0)
[2017-03-10 06:50] LABS: ALB/GLOB RATIO 0.9 (1.1-1.8); ALKALINE PHOSPHATASE 306 U/L (38-126); ALT/SGPT 42 U/L (7-56); AST/SGOT 24 U/L (17-59); BILIRUBIN,TOTAL 0.9 mg/dL (0.2-1.3); BLOOD UREA NITROGEN 12 mg/dL (7-21); CALCIUM 8.5 mg/dL (8.4-10.5); CARBON DIOXIDE 31 mmol/L (21-33); CHLORIDE 102 mmol/L (98-107); GFR AFRICAN-AMERICAN > 60; GLUCOSE,RANDOM 156 mg/dL (70-110); POTASSIUM 3.7 mmol/L (3.6-5.0); SODIUM 136 mmol/L (132-148); TOTAL PROTEIN 5.4 g/dL (5.8-8.3)
[2017-03-10] MEDS: Insulin Reg-HIGH-Coverage SC SCH ×4 (08:46→22:01)
[2017-03-10] MEDS: Vancomycin 1gm in NS 250ml 1 GM/250 ML BAG IVPB SCH ×2 (09:47→22:11)
[2017-03-10] MEDS: Potassium Chloride 20 mEq ER Tab PO SCH ×2 (09:47→17:30)
[2017-03-10] MEDS: Amylase/Lipase/Protease 5,000 Units ECC PO SCH ×3 (09:48→17:30)
[2017-03-10] MEDS: Oxycodone/Acetaminophen 5/325 mg Tab PO PRN (16:14)
--- NOTE | 2017-03-10 22:01 | PN ---
DATE: 03/10/2017 SUBJECTIVE: The patient is in bed, in no acute distress, seen early this morning, no fevers and no chills. PHYSICAL EXAMINATION VITAL SIGNS: On exam, temperature is 97, blood pressure is 120/70, respiratory rate of 16. HEENT: Unremarkable. NECK: Supple. LUNGS: Have decreased breath sounds. HEART: Normal S1 and S2. ABDOMEN: Soft, nontender. LABORATORY DATA: Reveals a white count of 8.3, hemoglobin of 9, platelets of 378, sed rate is 42. BUN of 4, creatinine of 0.7. C-reactive protein is greater than 15. Vancomycin trough level is 12.9. Repeat blood cultures are negative. Review of orders reveals the patient to be on vancomycin. ASSESSMENT AND PLAN: This is a 76-year-old male with severe sepsis with fluid responsive hypotension, who was admitted with methicillin-resistant Staphylococcus aureus bacteremia, etiology of this unclear, endocarditis mostly ruled out versus biliary tree as a source which is less likely and today is day #6 of vancomycin, would complete 21 to 28 days, follow the renal function carefully. Vancomycin trough levels of 15 to 20 and we will repeat her vancomycin level in a.m. Currently, the patient receives the vancomycin at approximately 10:15. We will order a vancomycin for tomorrow morning at 9:50, an hour prior to the vancomycin dose, an hour before tomorrow's dose and we will make further recommendations. Jose David Gracia MD
[2017-03-10] MEDS: Insulin Detemir 100 units/ml Vial (Levemir) SC SCH (22:10)
[2017-03-11] MEDS: Oxycodone/Acetaminophen 5/325 mg Tab PO PRN ×3 (00:02→17:49)
--- NOTE | 2017-03-11 03:25 | PN ---
DATE: 03/10/2017 SUBJECTIVE: The patient was seen this morning in room 355, bed 1. He is sitting out of the bed in a chair, awake, alert, clear and cooperative joined by his son. I spoke with Dr. Valenzuela, who is scheduling the KIKE tomorrow at the request of Infectious Disease performance consultant, Drs. Gracia and Pily. I explained the procedure to the patient, told him what he expect, I explained it to the son and the advantage of KIKE over transthoracic echo. Case is discussed with the nursing and Dr. Gracia's notes were reviewed. Depending on the results of echo, we will determine the course of antibiotics and finding on the patient's discharge on Tuesday with home extension agent antibiotics arranged and the course of antibiotics whether the KIKE shows vegetations or if not, has to be outlined by Infectious Disease. Rehan Jeff MD MTDD
[2017-03-11 08:52] VITALS: O2SAT 100
[2017-03-11] MEDS ORDERED: Midazolam 2 MG/2 ML VIAL ONE (09:04)
[2017-03-11] MEDS ORDERED: Naloxone 0.4 mg/ml Inj (Adult) ONE (09:05)
[2017-03-11] MEDS ORDERED: Flumazenil 0.1 mg/ml Inj (5ml) IVP ONE (09:05)
[2017-03-11] MEDS ORDERED: Lidocaine 2% Jelly (30 ml) ONE (09:05)
[2017-03-11] MEDS ORDERED: Midazolam 2 MG/2 ML VIAL IV ONE (09:10)
--- NOTE | 2017-03-11 09:26 | CARD ---
APPROVED REPORT EXAM: Transesophageal echocardiogram with color flow Doppler. INDICATION Infection : Rule out subacute bacterial endocarditis Reason For Test : Rule out endocarditis. PROCEDURE After obtaining informed consent, patient underwent transesophageal echo in the Echo Lab. Type of Sedation : Conscious Sedation Sedation was achieved with Versed, Fentanyl intravenously. Transesophageal probe was inserted and advanced into esophagus without difficulty. The KIKE was performed without complications. Throughout the procedure, the blood pressure, pulse oximetry, cardiac rhythm, and rate were monitored. The patient tolerated the procedure without adverse effects. Recovery from conscious sedation was uneventful and vital signs were stable. LEFT VENTRICLE The left ventricle is normal size. There is normal left ventricular wall thickness. Left ventricle systolic function is moderately impaired. RIGHT VENTRICLE The right ventricle is normal size. The right ventricular systolic function is normal. ATRIA The left atrium size is normal. The right atrium size is normal. The interatrial septum is intact with no evidence for an atrial septal defect. AORTIC VALVE The aortic valve is normal in structure. There is no aortic valvular vegetation. MITRAL VALVE The mitral valve is normal in structure. No vegetation is seen. Mitral regurgitation is mild to moderate. TRICUSPID VALVE The tricuspid valve is normal in structure. No vegetation is seen. There is mild tricuspid regurgitation. PULMONIC VALVE The pulmonary valve is normal in structure. GREAT VESSELS The aortic root is normal in size. The decending aorta has mild atherosclerotic plaque. The IVC is normal in size and collapses >50% with inspiration. <Conclusion> No KIKE evidence of endocarditis. Rest of findings as above.
[2017-03-11] MEDS ORDERED: Potassium Chloride 20 mEq ER Tab PO SCH (10:00)
[2017-03-11] MEDS: Insulin Reg-HIGH-Coverage SC SCH ×4 (10:29→21:20)
[2017-03-11] MEDS: Amylase/Lipase/Protease 5,000 Units ECC PO SCH ×3 (10:46→17:47)
[2017-03-11] MEDS: Potassium Chloride 10 mEq ER Tab PO SCH ×2 (10:48→17:48)
[2017-03-11] MEDS: Vancomycin 1gm in NS 250ml 1 GM/250 ML BAG IVPB SCH ×2 (11:26→22:17)
--- NOTE | 2017-03-11 14:44 | PN ---
DATE: 03/11/2017 SUBJECTIVE: The patient is in bed, in no acute distress, nontoxic. OBJECTIVE: VITAL SIGNS: On exam, temperature is 97, blood pressure is 120/70, respiratory rate of 16. HEENT: Examination of HEENT is unremarkable. NECK: Supple. LUNGS: Have decreased breath sounds. HEART: Normal S1, S2. ABDOMEN: Soft. LABORATORY EXAMINATION: Reveals a white count of 8.3, hemoglobin of 9. Chemistries are noted. BUN of 12, creatinine of 0.7. Urinalysis is noted, and vancomycin trough of 12.9, and MRSA from the blood cultures. The repeat blood cultures have no growth. ASSESSMENT AND PLAN: This is a 76-year-old male with severe sepsis with fluid responsive hypotension, admitted with MRSA bacteremia and must rule out endocarditis. The patient does not have a clear source biliary tree versus endocarditis. Today is day #7 of vancomycin. We would need 21 to 28 days, and maintain a vancomycin trough level between 15 to 20. The patient for a possible KIKE. We will follow closely with you. We will renew the vancomycin and patient is for vancomycin trough level this morning, results pending. Jose David Gracia MD cc:
--- NOTE | 2017-03-11 15:00 | PN ---
DATE: 03/11/2017 SUBJECTIVE: The patient is awake and alert. PHYSICAL EXAMINATION: VITAL SIGNS: He is afebrile, temperature 97.2, pulse 85, blood pressure 121/72, and respirations 20. ABDOMEN: Soft, nontender, and nondistended. GENITOURINARY: Bladder is not palpably distended. There is no costovertebral angle tenderness. INPUT AND OUTPUT: The patient is voiding good amounts of urine. Made 4200 mL yesterday. IMPRESSION AND PLAN: Urinary retention has resolved. Lewis catheter has been removed and the patient is voiding good amounts of urine without difficulty. He does not appear to be on tamsulosin. The patient appears to be voiding adequately without medication and does not need any acute urologic intervention at this time. We will sign off for now, please reconsult if necessary. Nilson Guadalupe MD
--- NOTE | 2017-03-11 15:42 | CON ---
DATE: 03/11/2017 INDICATIONS: Sepsis, rule out endocarditis. HISTORY OF PRESENT ILLNESS: This is a 76-year-old man known to us from his prior admission admitted on 03/02/2017 with edema, cellulitis, fever, urinary retention, and hypokalemia; subsequently found to have positive blood cultures with MRSA presumed secondary to lower extremity cellulitis. Infectious Disease has suggested KIKE to rule out endocarditis. A TTE was unremarkable for vegetations. We have arranged a KIKE for later today. At this point, he denies chest pain and shortness of breath. There is no orthopnea or PND. No syncope. No palpitations. There is edema, which has improved. He has had good diuresis in the last couple of days. There is no fever, chills, cough, sputum production, hemoptysis, abdominal pain, nausea, vomiting, or melena. He has had Lewis catheter for urinary retention. PAST MEDICAL HISTORY: Notable for pancreatic cancer. He is undergoing evaluation. A Whipple procedure is planned in the near future. He suffered fall recently and suffered a hip fracture, which was repaired. His remote coronary bypass surgery with known moderate to severe left ventricular dysfunction. A recent echocardiogram documented this as well as moderate mitral regurgitation, tricuspid regurgitation, and pulmonary hypertension, he is a former smoker, chronic right bundle-branch block and left anterior hemiblock. MEDICATIONS: At this time include insulin, potassium, Lasix, Motrin, Pancrease, Percocet, Tylenol, and vancomycin. ALLERGIES: THERE ARE NO KNOWN MEDICATION ALLERGIES. SOCIAL HISTORY: He lives at home. He is the support of his family. He does not smoke at this time, but was a heavy smoker in the past. He drinks alcohol occasionally. FAMILY HISTORY: Noncontributory. REVIEW OF SYSTEMS: A 10-point review of systems is otherwise unremarkable except as noted above. PHYSICAL EXAMINATION: GENERAL: He is well-developed elderly male appears ill. VITAL SIGNS: Unremarkable. Pulse is 78. He is in sinus rhythm. Temperature 98.4. O2 sat 100% on room air. HEENT: Reveals no neck vein distention, thyromegaly, or carotid bruits. Mucous membranes moist. Conjunctivae pink. HEART: Reveals normal first and second heart sounds. There is a systolic murmur along the left sternal border. PMI is displaced. ABDOMEN: Soft. Bowel sounds are present. No mass, organomegaly, tenderness, rebound, guarding, CVA tenderness, palpable abdominal aortic aneurysm. EXTREMITIES: Revealed edema with cellulitic changes of the lower extremities. NEUROLOGIC: He is awake and alert. PSYCHIATRIC: Normal as to mood and affect. LABORATORY DATA AND IMAGING: A chest x-ray in 03/02 revealed no active disease. EKG revealed right bundle-branch block and left anterior hemiblock, normal sinus rhythm, lateral infarct, ST-T wave changes. An x-ray of the foot revealed no acute findings. A hip and pelvis x-ray is noted. White count normal, hemoglobin 9.5, hematocrit 29.3, platelet count 378,000. PT, INR, PTT unremarkable. Blood gases are noted. Electrolytes are normal. BUN 12, creatinine 0.8, blood sugar is 130 to 211 range. Recently, LFTs unremarkable except for alkaline phosphatase of 306. Abnormal LFTs are noted initially. Hyponatremia and hypokalemia noted initially. Urinalysis is unremarkable. Vancomycin trough 12.9 on the 03/07/2017. IMPRESSION: Jemal Ibarra is a 76-year-old man with sepsis probably due to infected legs, endocarditis is being ruled out, a transthoracic echocardiogram was unremarkable for this. A transesophageal echocardiography was recommended by Infectious Disease. This is arranged for later today. I have discussed the case with Dr. Jeff by telephone. In the meantime, he is being diuresed with good urine output reported recently. He is on IV Lasix. He is getting potassium supplementation. I will review his old records. We will establish a cardiac regimen for him. He should have nuclear stress testing prior to planned Whipple procedure. Barry Valenzuela MD
--- NOTE | 2017-03-11 20:26 | CON ---
DATE: 03/11/2017 REQUESTING PHYSICIAN: Dr. Jeff. REASON FOR CONSULTATION: Bacteremia and known coronary artery disease. HISTORY OF PRESENT ILLNESS: This is a 76-year-old man known to us with a history of coronary artery disease, status post remote bypass surgery and recent diagnosis of pancreatic cancer who was admitted with sepsis and MRSA bacteremia and transthoracic echo showed no clear vegetation, but an echocardiogram has been requested. He is being evaluated for possible Whipple procedure. He recently suffered a fall and fractured his left hip. He denies any recent chest pain or dyspnea. He has had significant weight loss over the past several months up to 60 pounds. An echocardiogram performed recently showed evidence of unchanged moderate LV dysfunction with moderate mitral and tricuspid regurgitation. He has a history of diabetes as well. PAST MEDICAL HISTORY: Known for the problems as mentioned above. CURRENT MEDICATIONS: Include aspirin, Bactroban, insulin coverage, Lasix 40 mg daily, potassium, Levemir insulin, Pancrease, Percocet p.r.n., metoprolol 25 mg daily, vancomycin, and Zestril 2.5 mg daily. ALLERGIES: NONE. SOCIAL HISTORY: He has a long history of tobacco abuse, but quit in 2011 at the time of his bypass surgery. He does not drink. He lives alone. FAMILY HISTORY: Both parents are from the age-related illness. A 10-point review of systems is notable mainly for the problems as mentioned above. PHYSICAL EXAMINATION: GENERAL: He is a thin, cachectic middle-aged man. VITAL SIGNS: His blood pressure is 120/70, pulse of 86 and sinus, respirations are 14, and he is currently afebrile. HEENT: Some temporal wasting is noted. NECK: Supple. No JVD present. CHEST: Bilateral scattered rhonchi heard. HEART: PMI displaced laterally with soft tones present and a systolic murmur in the lower left sternal border and apex. ABDOMEN: Soft and nontender with normoactive bowel sounds. EXTREMITIES: No edema. SKIN: Warm and dry. PSYCHIATRIC: Normal mood and affect. NEUROLOGIC: Alert and oriented x3. No gross motor or sensory is appreciable. LABORATORY DATA: Recent blood work reveals white count of 8.3, hemoglobin and hematocrit of 9.5 and 29.3 with a platelet count of 378,000. PT/PTT were normal. Potassium is 3.7, BUN and creatinine 12 and 0.7, and glucose 156. Albumin is 2.5. Electrocardiogram reveals sinus rhythm with right bundle-branch block and left anterior hemiblock unchanged from prior tracings. Chest x-ray reveals normal cardiac silhouette with mild increased vascular markings. IMPRESSION AND PLAN: Methicillin-resistant Staphylococcus aureus bacteremia, source unclear, did have an indwelling drain, which was recently removed possibility of endocarditis does exist; however, less likely given the need to determine appropriate duration of antibiotic therapy and transesophageal echocardiogram has been requested and will be performed. Further recommendations will be based upon those results. We will be happy to follow along as needed. Jose Enrique Murillo MD MTDD
[2017-03-11] MEDS: Insulin Detemir 100 units/ml Vial (Levemir) SC SCH (21:50)
[2017-03-12] MEDS: Oxycodone/Acetaminophen 5/325 mg Tab PO PRN (04:13)
[2017-03-12 06:39] LABS: BLOOD UREA NITROGEN 12 mg/dL (7-21); CALCIUM 8.7 mg/dL (8.4-10.5); CARBON DIOXIDE 28 mmol/L (21-33); CHLORIDE 103 mmol/L (98-107); GFR AFRICAN-AMERICAN > 60; GLUCOSE,RANDOM 118 mg/dL (70-110); MAGNESIUM 1.8 mg/dL (1.7-2.2); POTASSIUM 4.2 mmol/L (3.6-5.0); SODIUM 137 mmol/L (132-148)
[2017-03-12] MEDS: Insulin Reg-HIGH-Coverage SC SCH (07:35)
[2017-03-12] MEDS ORDERED: Metoprolol Succinate 25 mg XL Tab PO SCH (08:00)
[2017-03-12 08:08] VITALS: TEMP 98.7
[2017-03-12] MEDS: Potassium Chloride 10 mEq ER Tab PO SCH (10:05)
[2017-03-12] MEDS: Amylase/Lipase/Protease 5,000 Units ECC PO SCH (10:10)
[2017-03-12] MEDS: Vancomycin 1gm in NS 250ml 1 GM/250 ML BAG IVPB SCH (10:11)
[2017-03-12 10:26] VITALS: BP 127/76
[2017-03-12 12:03] VITALS: PULSE 70
--- NOTE | 2017-03-12 13:35 | PN ---
DATE: 03/12/2017 SUBJECTIVE: The patient is in bed in no acute distress. OBJECTIVE: VITAL SIGNS: Temperature is 98, blood pressure is 112/70, and respiratory rate is 16. HEENT: Unremarkable. NECK: Supple. LUNGS: Have decreased breath sounds. HEART: Normal S1 and S2. ABDOMEN: Soft. LABORATORY DATA: Sed rate is 42. Microbiology reveals the repeat cultures are negative and the patient had an echo with Dr. Johns yesterday, which was a transesophageal evidence of endocarditis. ASSESSMENT AND PLAN: This is a 76-year-old male with severe sepsis, fluid responsive, and hypotension, admitted with methicillin-resistant Staphylococcus aureus bacteremia, negative transesophageal echocardiogram, possibly biliary tree is the source, currently on vancomycin day #8 would complete at least 14 days and vancomycin today is day #8 of 14 days with acute to vancomycin trough level between 15 and 20, yesterday's trough level was 12.5. The patient has already cleared bacteremia. We will follow closely with you. Jose David Gracia MD
--- NOTE | 2017-03-12 15:21 | PN ---
DATE: 03/12/2017 SUBJECTIVE: The patient is seen sitting in a chair on telemetry. He is comfortable at the present time. He denies any chest pain or dyspnea. Transesophageal electrocardiogram performed yesterday showed no evidence of vegetation. CURRENT MEDICATIONS: His current medications remain aspirin, insulin coverage, Lasix 40 mg daily, potassium 30 mEq b.i.d., insulin, Pancrease, Percocet, Toprol-XL 25 mg daily, vancomycin, and Zestril 2.5 mg daily. OBJECTIVE: GENERAL: He is an ill-appearing elderly man. VITAL SIGNS: His blood pressure is 126/76 with pulse of 70 and sinus, respirations 16. He is afebrile. HEENT: No JVD. CHEST: Bilateral scattered rhonchi. HEART: PMI displaced laterally with soft tones noted and systolic murmur at the apex. ABDOMEN: Soft and nontender with normoactive bowel sounds. EXTREMITIES: No edema. DIAGNOSTIC DATA: Potassium is 4.2, BUN and creatinine of 12 and 0.6. IMPRESSION: 1. Recent methicillin-resistant Staphylococcus aureus sepsis with no evidence of endocarditis. 2. Pancreatic cancer, being evaluated for possible Whipple procedure. 3. Coronary artery disease, status post prior bypass surgery, clinically stable at the present time. 4. Moderate left ventricular systolic dysfunction. RECOMMENDATIONS: From a cardiac standpoint, his current regimen should continue. He is stable from cardiac standpoint for discharge. If Whipple procedure is planned, preoperative cardiac assessment with stress testing would be advisable. We will be happy to arrange to see him as an outpatient upon discharge. Jose Enrique Murillo MD
--- NOTE | 2017-03-13 01:03 | PN ---
DATE: 03/11/2017 SUBJECTIVE: The patient was seen this Tuesday evening in room 365, bed 1. He is sitting on the bed near window and his daughter is present. The patient is hoping very much to go home soon. He underwent a KIKE earlier today, which was unremarkable. Case was discussed with sap ppm consultant, curriculum supervisor, Dr. Johns. There were no vegetations on KIKE. I also spoke with Dr. Gracia, Infectious Disease sap ppm consultant who will outline the home antibiotic regimen described to the patient. The patient is awake, alert, and clear, in good spirits. Lungs show good aeration right and left. Cellulitis of the legs has improved basically with no erythema, but some trace swelling, -(more the result of his overall nutritional status and underlying intraabdominal malignancy). I spoke with the case therapist and case workers today. The patient will receive antibiotics tomorrow morning and then be ready for discharge to home. The patient's infusion company will be coming to visit him on Tuesday evening. His daughter has been taught IV access care in the hospital and will be taught again by the infusion company about the workings of the IV and administration of the antibiotics. Rehan Jeff MD MTDD
--- NOTE | 2017-03-13 14:53 | DS ---
HISTORY OF PRESENT ILLNESS: This is 76-year-old man who I had not seen in quite sometime, who presented 2 months ago, on Tuesday morning, waiting for me in the office driveway, severely jaundiced. He was hospitalized and diagnosed with pancreatic mass. He went home after stenting and was felt to be a surgical candidate; however, he fell sustaining fractures of hip. He went to subacute rehab and came home and now comes to the hospital with bilateral cellulitis of lower extremities. He was admitted to medical floor, treated with IV antibiotics, so Infectious Disease performance improvement consultant was called as MRSA was growing out of the blood cultures. For that reason, antibiotics were continued. Infectious Disease consultants were very concerned about endocarditis. Echocardiogram and transesophageal echocardiogram were done, which were negative for vegetations and so the patient was ready for discharge to home with ordered prolonged course of IV antibiotics per Infectious Disease consultants recommended. Today, Tuesday03/12/2017, when last examined, patient was awake, alert, clear, and appropriate. Lungs show good aeration, but other signs of COPD and recent weight loss from his underlying pancreatic lesion or pancreatic CA. He will follow up with us in approximately 1 week as well as with the [facility] who has been contemplating a Whipple procedure. FINAL DISCHARGE DIAGNOSES: 1. Cellulitis of the lower extremities. 2. Positive blood cultures with methicillin-resistant Staphylococcus aureus x2. 3. Pancreatic CA 4. COPD 5. Recent hip Fracture. 6. History of coronary artery disease, status post intervention by Dr. Murillo and Dr. Valenzuela. Rehan Jeff MD MTDDani
== END 2017-03-12 13:23 | disposition home or self-care (01) | DRG 871 ==
LOC: ED 23:14 → ERH 03-03 04:11 → ICU 03-03 06:20 → 3RNO 03-04 16:49
PROVIDERS: ADMIT Internal Medicine; ATTEND Internal Medicine
PROC: 02HV33Z Insertion of Infusion Device into Superior Vena Cava, Percutaneous Approach (ICD-10-PCS; principal; 2017-03-09)
PROC: B548ZZA Ultrasonography of Superior Vena Cava, Guidance (ICD-10-PCS; 2017-03-09)
DX: A41.02 Sepsis due to Methicillin resistant Staphylococcus aureus (principal); I50.21 Acute systolic (congestive) heart failure; C25.9 Malignant neoplasm of pancreas, unspecified; I27.20 Pulmonary hypertension, unspecified; I08.1 Rheumatic disorders of both mitral and tricuspid valves; L03.115 Cellulitis of right lower limb; L03.116 Cellulitis of left lower limb; I45.2 Bifascicular block; J44.9 Chronic obstructive pulmonary disease, unspecified; I25.10 Atherosclerotic heart disease of native coronary artery without angina pectoris; R65.20 Severe sepsis without septic shock; E10.9 Type 1 diabetes mellitus without complications; E87.6 Hypokalemia; Z87.891 Personal history of nicotine dependence; Z95.1 Presence of aortocoronary bypass graft; Z95.5 Presence of coronary angioplasty implant and graft; Z87.81 Personal history of (healed) traumatic fracture; Z91.81 History of falling; R40.2412 Glasgow coma scale score 13-15, at arrival to emergency department; R33.9 Retention of urine, unspecified

== ENCOUNTER 2017-03-18 14:19 | Emergency (ER) | payer MEDICARE, OTHER ==
[2017-03-18 14:30] VITALS: BMI 25.8
--- NOTE | 2017-03-18 14:58 | ED PDOC ---
Arrival/HPI - General Chief Complaint: Trauma Time Seen by Provider: 03/18/17 14:57 Historian: Patient - History of Present Illness Narrative History of Present Illness (Text): 03/18/17 14:57 Jemal Ibarra is a 76 year old male, whose past medical history includes diabetes and pancreatic cancer, who presents to the emergency department with his daughter complaining of head trauma x [employer]PER[employer]. Patient stated he fell sleep 30 minutes after taking Tramadol form his wheelchair to the floor. Denies loc, diplopia, dysarthria, dysphagia, cms, weakness, paresthesias, n/v, dizziness, or abnormal gait. Patient is UTD Tetanus Time/Duration: Prior to Arrival Context: Home Past Medical History - Provider Review Nursing Documentation Reviewed: Yes - Past History Past History: Non-Contributing - Infectious Disease Hx of Infectious Diseases: None - Tetanus Immunization Tetanus Immunization: Unknown - Past Medical History Past Medical History: Non-Contributing - Cardiac Hx Pacemaker: No - Pulmonary Hx Respiratory Disorders: No - Neurological Hx Neurological Disorder: No - HEENT Hx HEENT Disorder: No - Renal Hx Renal Disorder: No - Endocrine/Metabolic Hx Diabetes Mellitus Type 2: Yes - Hematological/Oncological Hx Blood Transfusions: No Hx Blood Transfusion Reaction: No - Integumentary Hx Dermatological Disorder: No - Musculoskeletal/Rheumatological Hx Falls: Yes - Gastrointestinal Hx Gastrointestinal Disorders: No - Genitourinary/Gynecological Hx Genitourinary Disorders: No Other/Comment: pancreatic ca - Psychiatric Hx Psychophysiologic Disorder: No Hx Depression: No Hx Emotional Abuse: No Hx Physical Abuse: No Hx Substance Use: No - Surgical History Hx Mastectomy: No - Anesthesia Hx Anesthesia: No Hx Anesthesia Reactions: No Hx Malignant Hyperthermia: No - Suicidal Assessment Feels Threatened In Home Enviroment: No Family/Social History - Physician Review Nursing Documentation Reviewed: Yes Family/Social History: Other (noncontributory) Smoking Status: Current Some Days Smoker Hx Alcohol Use: No Hx Substance Use: No Hx Substance Use Treatment: No Allergies/Home Meds Allergies/Adverse Reactions: Allergies No Known Allergies Allergy (Verified 02/07/17 04:09) Home Medications: Home Meds Medication Instructions Recorded Confirmed Docusate [Colace] 3 cap PO HS 03/02/17 03/18/17 Insulin Detemir [Levemir] 15 unit SC HS 03/02/17 03/18/17 Lipase/Protease/Amylase [Zenpep Dr 1 cap PO TID 03/02/17 03/18/17 15,000 Units Capsule] Silver Sulfadiazine [Silvadene] 1 appl TOP DAILY 03/02/17 03/18/17 oxyCODONE/Acetaminophen [Percocet 1 tab PO Q4H PRN 03/02/17 03/18/17 5/325 mg Tab] Review of Systems - Review of Systems Constitutional: Normal. absent: Fatigue, Weight Change, Fevers Eyes: Normal ENT: Normal Respiratory: Normal Cardiovascular: Normal Gastrointestinal: Normal Genitourinary Male: Normal Musculoskeletal: Normal Skin: Normal Neurological: Other (head injury) Endocrine: Normal Hemo/Lymphatic: Normal Psychiatric: Normal Physical Exam Vital Signs Temp Pulse Resp BP Pulse Ox 03/18/17 14:30 97.6 F 87 18 123/77 100 03/18/17 14:21 97.6 F 87 19 135/77 100 Temperature: Afebrile Blood Pressure: Normal Pulse: Regular Respiratory Rate: Normal Appearance: Positive for: Well-Appearing, Non-Toxic, Comfortable Pain Distress: None Mental Status: Positive for: Alert and Oriented X 3 - Systems Exam Head: Present: Atraumatic, Normocephalic, Abrasion (very small superficial abrasion right forehead), Other (no raccoon sign. No fatima sign) Pupils: Present: PERRL, Other (no hyphema) Extroacular Muscles: Present: EOMI. No: Entrapment Conjunctiva: Present: Normal Ears: Present: Normal, NORMAL TM, Normal Canal, Other (no hemotympanum). No: Erythema, TM Bulging, Fluid, TM Perf Mouth: Present: Moist Mucous Membranes, Normal Lips, Normal Tounge, Normal Teeth Pharnyx: Present: Normal. No: ERYTHEMA, EXUDATE, TONSILS ENLARGED Nose (External): Present: Atraumatic Nose (Internal): Present: Normal Inspection. No: Septal Hematoma, Epistaxis Neck: Present: Normal Range of Motion, Trachea Midline. No: Meningeal Signs, MIDLINE TENDERNESS, Paraspinal Tenderness, Lymphadenopathy Back: Present: Normal Inspection Upper Extremity: Present: Normal Inspection, Normal ROM Lower Extremity: Present: Normal Inspection, Normal ROM Neurological: Present: GCS=15, CN II-XII Intact, Speech Normal Skin: Present: Warm, Dry, Normal Color. No: Rashes Psychiatric: Present: Alert, Oriented x 3 Medical Decision Making ED Course and Treatment: 03/18/17 16:49 Re-evaluation. Patient feels better. Discussed results and plan with patient who expresses understanding. All questions answered and there is agreement with the plan to discharge home with instructions. Patient stable for discharge. Return if symptoms persist or worsen. Daughter and patient agreed with plan to d/c him home. Patient denies new symptoms. He wishes to be discharged home soon. Patient has a normal gait. Patient refused to be admitted in ED for observation. Daughter and patient agreed to return to emergency if symptoms would arise. Re-evaluation Time: 16:50 Reassessment Condition: Re-examined, Improved - RAD Interpretation Narrative RAD Interpretations (Text): 03/18/17 16:39 Patient Name / ID : DARVIN ROSSI / [id number] Exam Date : 03/18/2017 15:51:40 ( Approved ) Study Comment : Sex / Age : M / [id number] Creator : Matias Guzman MD Dictator : Matias Guzman MD Photocopying Machine Operator : Painter Hand : Matias Guzman MD Approver2 : Report Date : 03/18/2017 16:18:36 My Comment : PROCEDURE: CT HEAD WITHOUT CONTRAST. HISTORY: head trama s/p fall COMPARISON: None available. TECHNIQUE: Axial computed tomography images were obtained through the head/brain without intravenous contrast. Radiation dose: Total exam DLP = 836.5 mGy-cm. This CT exam was performed using one or more of the following dose reduction techniques: Automated exposure control, adjustment of the mA and/or kV according to patient size, and/or use of iterative reconstruction technique. FINDINGS: HEMORRHAGE: No intracranial hemorrhage. BRAIN: Old right frontal infarct. Old right external capsule lacunar infarct. No mass effect or edema. Cerebral atrophy. Mild chronic microvascular ischemic changes in the supratentorial white matter. VENTRICLES: Unremarkable. No hydrocephalus. CALVARIUM: Unremarkable. PARANASAL SINUSES: Unremarkable as visualized. No significant inflammatory changes. MASTOID AIR CELLS: Unremarkable as visualized. No inflammatory changes. OTHER FINDINGS: None. IMPRESSION: No acute intracranial pathology. Radiology Orders: 03/18/17 15:06 HEAD W/O CONTRAST [CT] Stat Disposition/Present on Arrival - Present on Arrival Any Indicators Present on Arrival: No History of DVT/PE: No History of Uncontrolled Diabetes: No Urinary Catheter: Yes History of Decub. Ulcer: No History Surgical Site Infection Following: Orthopedic Procedures - Disposition Have Diagnosis and Disposition been Completed?: Yes Diagnosis: Closed head injury Disposition: HOME/ ROUTINE Disposition Time: 16:54 Patient Plan: Discharge Condition: GOOD Discharge Instructions (ExitCare): Head Injury (ED) Additional Instructions: Call private doctor for follow up visit in 1-2 days. return to emergency immediately if new symptoms would arise, nausea, vomiting, increasing headaches , dizziness, confusion, or abnormal walk. Make sure to call your private oncologist to review CT scan of head Referrals: Rehan Jeff MD [Primary Care Provider] - Follow up with primary Forms: [id number] (Tajik)
--- NOTE | 2017-03-18 16:20 | CT ---
PROCEDURE: CT HEAD WITHOUT CONTRAST. HISTORY: head trama s/p fall COMPARISON: None available. TECHNIQUE: Axial computed tomography images were obtained through the head/brain without intravenous contrast. Radiation dose: Total exam DLP = 836.5 mGy-cm. This CT exam was performed using one or more of the following dose reduction techniques: Automated exposure control, adjustment of the mA and/or kV according to patient size, and/or use of iterative reconstruction technique. FINDINGS: HEMORRHAGE: No intracranial hemorrhage. BRAIN: Old right frontal infarct. Old right external capsule lacunar infarct. No mass effect or edema. Cerebral atrophy. Mild chronic microvascular ischemic changes in the supratentorial white matter. VENTRICLES: Unremarkable. No hydrocephalus. CALVARIUM: Unremarkable. PARANASAL SINUSES: Unremarkable as visualized. No significant inflammatory changes. MASTOID AIR CELLS: Unremarkable as visualized. No inflammatory changes. OTHER FINDINGS: None. IMPRESSION: No acute intracranial pathology.
[2017-03-18 17:12] VITALS: BP 140/80; PULSE 85; RESP 19; TEMP 98; O2SAT 99
== END 2017-03-18 17:13 | disposition home or self-care (01) ==
LOC: ED 14:19
DX: S09.90XA Unspecified injury of head, initial encounter (principal); W05.0XXA Fall from non-moving wheelchair, initial encounter; Y92.009 Unspecified place in unspecified non-institutional (private) residence as the place of occurrence of the external cause; E11.9 Type 2 diabetes mellitus without complications; Z85.07 Personal history of malignant neoplasm of pancreas

== ENCOUNTER 2017-04-16 10:28 | Inpatient (IN) | payer MEDICARE, OTHER ==
[2017-04-16] MEDS ORDERED: Sodium Chloride 0.9% 500 ML IV STA ×2 (10:49→14:20)
[2017-04-16 11:07] LABS: BASO # 0.05 K/mm3 (0.0-2.0); BASO % 0.4 % (0.0-3.0); EOS % 0.1 % (1.5-5.0); GRAN # 11.21 (1.4-6.5); GRAN % 79.2 % (50.0-68.0); HEMOGLOBIN 12.6 g/dL (14.0-18.0); LYMPH # 1.5 (1.2-3.4); LYMPH % 10.7 % (22.0-35.0); MEAN CELL VOLUME 88.2 fl (80.0-105.0); MEAN CORPUSCULAR HEMOGLOBIN 29.1 pg (25.0-35.0); MEAN PLATELET VOLUME 10.3 fl (7.0-11.0); MONO # 1.4 (0.1-0.6); MONO % 9.6 % (1.0-6.0); RBC 4.33 10^6/uL (3.5-6.1); RED CELL DISTRIBUTION WIDTH 14.5 % (11.5-14.5); WHITE BLOOD COUNT 14.1 10^3/ul (4.5-11.0)
[2017-04-16] MEDS ORDERED: levETIRAcetam 1,000 MG in Sodium Chloride 0.9% 100 ML IV ONE (11:11)
--- NOTE | 2017-04-16 11:38 | ED PDOC ---
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 General time at clonic seizure began with him not rousing and extra somnolent in the morning, found by . EMS gave patient IV Ativan 2 mg X2, which didn't break seizure. Patient in the emergency department hypothermic, postictal. Mental status is slowly returning. Symptom Onset: Sudden Symptom Course: Unchanged Activities at Onset: Rest Context: Home Past Medical History - Provider Review Nursing Documentation Reviewed: Yes - Past History Past History: Non-Contributing - Infectious Disease Hx of Infectious Diseases: None - Tetanus Immunization Tetanus Immunization: Unknown - Past Medical History Past Medical History: Non-Contributing - Cardiac Hx Pacemaker: No - Pulmonary Hx Respiratory Disorders: No - Neurological Hx Neurological Disorder: No - HEENT Hx HEENT Disorder: No - Renal Hx Renal Disorder: No - Endocrine/Metabolic Hx Diabetes Mellitus Type 2: Yes - Hematological/Oncological Hx Blood Transfusions: No Hx Blood Transfusion Reaction: No - Integumentary Hx Dermatological Disorder: No Other/Comment: pancreatic Cancer 12/2016 - Musculoskeletal/Rheumatological Hx Falls: Yes - Gastrointestinal Hx Gastrointestinal Disorders: No - Genitourinary/Gynecological Hx Genitourinary Disorders: No Other/Comment: pancreatic ca - Psychiatric Hx Psychophysiologic Disorder: No Hx Depression: No Hx Emotional Abuse: No Hx Physical Abuse: No Hx Substance Use: No - Surgical History Other/Comment: left hip repair 2017 - Anesthesia Hx Anesthesia: Yes Hx Anesthesia Reactions: No Hx Malignant Hyperthermia: No - Suicidal Assessment Feels Threatened In Home Enviroment: No Family/Social History - Physician Review Nursing Documentation Reviewed: Yes Family/Social History: No Known Family HX Smoking Status: Current Some Days Smoker Hx Alcohol Use: No Hx Substance Use: No Hx Substance Use Treatment: No Allergies/Home Meds Allergies/Adverse Reactions: Allergies No Known Allergies Allergy (Verified 04/16/17 16:48) Home Medications: Home Meds Medication Instructions Recorded Confirmed Insulin Detemir [Levemir] 15 unit SC HS 03/02/17 04/16/17 Lipase/Protease/Amylase [Zenpep Dr 1 cap PO TID 03/02/17 04/16/17 15,000 Unit Capsule] oxyCODONE/Acetaminophen [Percocet 1 tab PO Q4H PRN 03/02/17 04/16/17 5/325 mg Tab] Review of Systems - Review of Systems Systems not reviewed;Unavailable: Acuity of Condition Neurological: Seizure Physical Exam - Physical Exam Physical Exam Limitations: Clinical Condition Vital Signs Reviewed: Yes Vital Signs Temp Pulse Resp BP Pulse Ox 04/16/17 17:05 97 F L 104 H 21 122/71 100 04/16/17 14:31 96.8 F L 04/16/17 13:00 108 H 18 139/87 100 04/16/17 10:59 92.2 F L 04/16/17 10:32 116 H 21 202/134 H 96 Blood Pressure: Hypertensive Pulse: Tachycardic Respiratory Rate: Normal Appearance: Positive for: Other (hypothermic, postictal) Pain Distress: None Mental Status: Positive for: other (postictal; doesn't respond to query) - Systems Exam Head: Present: Atraumatic, Normocephalic Pupils: Present: Other (pupils mid range; no anisocoria) Respiratory/Chest: Present: Rhonchi (occasional). No: Respiratory Distress, Accessory Muscle Use Cardiovascular: Present: Tachycardic Abdomen: Present: Normal Bowel Sounds. No: Tenderness, Distention, Peritoneal Signs Lower Extremity: Present: Edema (pretibial edema; healing of surgical scar over left greater trochanter) Neurological: Present: Other (doesn't respond to query) Skin: Present: Warm, Dry, Normal Color. No: Rashes Medical Decision Making ED Course and Treatment: 04/16/17 11:35 Impression: A 76 year old male with witness seizure, hypothermic and postictal. Plan: -- EKG -- CT head -- labs -- Urinalysis -- Keppra, IV fluids -- Reassess and disposition Prior Visits: Notes and results from previous visits were reviewed. Patient was last seen in the emergency department on 03/18/17 for evaluation of head trauma. Progress Notes: 04/16/17 12:26 EKG: Ordered, reviewed, and independently interpreted the EKG. Rate : 116 BPM Rhythm : sinus tachycardia Interpretation : bifascicular block, nonspecific, intraventricular block, artifactual baseline, poor R wave progression 04/16/17 13:05 CT HEAD WITHOUT CONTRAST Creator : Sana Will MD FINDINGS: HEMORRHAGE: No intracranial hemorrhage. BRAIN: No new cortical effacement is appreciated. Chronic right frontal infarct with encephalomalacia is appreciated. Cerebral atrophy is appreciated elsewhere with small-vessel changes noted in the white matter tracts. Posterior fossa is unremarkable. VENTRICLES: Unremarkable. No hydrocephalus. CALVARIUM: Unremarkable. PARANASAL SINUSES: Unremarkable as visualized. No significant inflammatory changes. MASTOID AIR CELLS: Unremarkable as visualized. No inflammatory changes. IMPRESSION: No evidence of recent infarct or intracranial hemorrhage. Chronic right frontal infarct. Atrophy and small vessel changes elsewhere. - Lab Interpretations Microbiology Results: Microbiology Results 04/16/17 10:00 Blood-Venous S.aureus & Coag-Neg Staph PNA FISH - Final 04/16/17 10:00 Blood-Venous Blood Culture - Preliminary Methicillin Resistant S Aureus 04/16/17 10:00 Blood-Venous Gram Stain - Final 04/16/17 11:30 Blood-Venous Blood Culture - Preliminary Gram Positive Cocci 04/16/17 11:30 Blood-Venous Gram Stain - Final 04/16/17 12:30 Urine,Clean Catch Urine Culture - Final No Growth (<1,000 CFU/ML) Lab Results: 04/16/17 10:54 04/16/17 11:52 Lab Results 04/16/17 14:25: Troponin I < 0.01 04/16/17 12:30: Urine Color Yellow, Urine Appearance Clear, Urine pH 7.0, Ur Specific [place] 1.020, Urine Protein 100 H, Urine Glucose (UA) Negative, Urine Ketones Negative, Urine Blood Large H, Urine Nitrate Negative, Urine Bilirubin Negative, Urine Urobilinogen 0.2, Ur Leukocyte Esterase Negative, Urine RBC 20 - 25, Urine WBC 1 - 3, Ur Epithelial Cells 1 - 3, Urine Bacteria Small, Urine Other Mucus 04/16/17 11:52: Sodium 132, Potassium 3.4 L, Chloride 92 L, Carbon Dioxide 26, Anion Gap 18, BUN 13, Creatinine 0.7 L, Est GFR ( Amer) > 60, Est GFR ( Non-Af Amer) > 60, Random Glucose 98, Calcium 9.2, Total Bilirubin 0.7, AST 50, ALT 37, Alkaline Phosphatase 270 H, Total Protein 7.8, Albumin 3.6, Globulin 4.2 , Albumin/Globulin Ratio 0.8 L 04/16/17 10:54: Alcohol, Quantitative < 10 04/16/17 10:54: WBC 14.1 H D, RBC 4.33, Hgb 12.6 L D, Hct 38.2 L, MCV 88.2 D, MCH 29.1, MCHC 33.0, RDW 14.5, Plt Count 500 H, MPV 10.3, Gran % 79.2 H, Lymph % (Auto) 10.7 L, [place] % (Auto) 9.6 H, Eos % (Auto) 0.1 L, Baso % (Auto) 0.4, Gran # 11.21 H, Lymph # 1.5, [place] # 1.4 H, Eos # 0.0, Baso # 0.05 I have reviewed the lab results: Yes - RAD Interpretation Radiology Orders: 04/16/17 10:50 HEAD W/O CONTRAST [CT] Stat 04/16/17 14:33 CHEST PORTABLE [RAD] Stat - EKG Interpretation Interpreted by ED Physician: Yes Type: 12 lead EKG - Medication Orders Current Medication Orders: Amylase (Pancrease 04983 U-5000 U-[id number] U) 1 unit PO ACTID [facility] Last Admin: 04/19/17 13:08 Dose: 1 unit Heparin Sodium (Porcine) (Heparin) 5,000 units SC Q12 [facility] PRN Reason: Protocol Last Admin: 04/19/17 11:04 Dose: 5,000 units Subcutaneous Administrations Document 04/19/17 11:04 YD (Rec: 04/19/17 11:05 YD [id number]) Injection Site MAR Injection Site Right Abdomen Charges for Administration # of Subcutaneous Administrations 1 Hydromorphone HCl (Dilaudid) 1 mg IM Q6 PRN PRN Reason: Pain, severe (8-10) Last Admin: 04/18/17 11:08 Dose: 1 mg MAR Pain Assessment Document 04/18/17 11:08 MV (Rec: 04/18/17 11:09 MV [id number]) Pain Reassessment Is this a pain reassessment? No IM Administration Charges Document 04/18/17 11:08 MV (Rec: 04/18/17 11:09 MV [id number]) Charges for Administration # of IM Administrations 1 Levetiracetam (Keppra 500mg Ivpb) 500 mg in 100 mls @ 400 mls/hr IV Q12 [facility]E Last Admin: 04/19/17 11:05 Dose: 400 mls/hr eMAR Start Stop Document 04/19/17 11:05 YD (Rec: 04/19/17 11:05 YD [id number]) Intravenous Solution Start Date 04/19/17 Start Time 11:05 Piperacillin Sod/Tazobactam Sod (Zosyn 3.375 In Ns 100ml) 100 mls @ 200 mls/hr IVPB Q6 [facility] PRN Reason: Protocol Stop: 04/26/17 12:01 Last Admin: 04/19/17 06:28 Dose: 200 mls/hr eMAR Start Stop Document 04/19/17 06:28 STM (Rec: 04/19/17 06:28 STM [id number]) Intravenous Solution Start Date 04/19/17 Start Time 06:28 End Date 04/19/17 End time 06:58 Total Infusion Time 30 Vancomycin HCl (Vancomycin 1gm) 1 gm in 250 mls @ 167 mls/hr IVPB Q12H [facility] PRN Reason: Protocol Last Admin: 04/19/17 11:07 Dose: 167 mls/hr eMAR Start Stop Document 04/19/17 11:07 YD (Rec: 04/19/17 11:07 YD [id number]) Intravenous Solution Start Date 04/19/17 Start Time 11:07 Insulin Human Regular (Humulin R Low) 0 units SC Q6H [facility] PRN Reason: Protocol Last Admin: 04/19/17 11:05 Dose: 1 units MAR Blood Glucose Document 04/19/17 11:05 YD (Rec: 04/19/17 11:06 YD [id number]) Blood Glucose Finger Stick Blood Glucose (70-120) 165 Subcutaneous Administrations Document 04/19/17 11:05 YD (Rec: 04/19/17 11:06 YD [id number]) Injection Site MAR Injection Site Left Deltoid Charges for Administration # of Subcutaneous Administrations 1 Pantoprazole Sodium (Protonix Inj) 40 mg IVP DAILY [facility] Last Admin: 04/19/17 11:05 Dose: 40 mg IVP Administration Document 04/19/17 11:05 YD (Rec: 04/19/17 11:05 YD [id number]) Charges for Administration # of IVP Administrations 1 Tramadol HCl (Ultram) 50 mg PO QID PRN PRN Reason: Pain, moderate (4-7) Last Admin: 04/19/17 02:16 Dose: 50 mg MAR Pain Assessment Document 04/19/17 02:16 [facility] (Rec: 04/19/17 02:16 [id number] Pain Reassessment Is this a pain reassessment? No Presence of Pain Presence of Pain Yes Re-Assess: MAR Pain Assessment Document 04/19/17 03:16 [facility] (Rec: 04/19/17 05:39 [id number] Pain Reassessment Is this a pain reassessment? Yes Sleep Is patient sleeping during reassessment? Yes Discontinued Medications Sodium Chloride (Sodium Chloride 0.9%) 500 mls @ 1,000 mls/hr IV .Q30M STA Stop: 04/16/17 11:18 Last Admin: 04/16/17 11:23 Dose: 1,000 mls/hr eMAR Start Stop Document 04/16/17 11:23 LA (Rec: 04/16/17 11:23 LA [id number]) Intravenous Solution Start Date 04/16/17 Start Time 11:23 Levetiracetam 1,000 mg/ Sodium (Chloride) 110 mls @ 440 mls/hr IV ONCE ONE Stop: 04/16/17 11:25 Last Admin: 04/16/17 11:31 Dose: 440 mls/hr eMAR Start Stop Document 04/16/17 11:31 LA (Rec: 04/16/17 11:45 LA [id number]) Intravenous Solution Start Date 04/16/17 Start Time 11:45 Ceftriaxone Sodium (Rocephin 2 Gm Ivpb) 2 gm in 100 mls @ 100 mls/hr IVPB STAT STA PRN Reason: Protocol Stop: 04/16/17 13:28 Last Admin: 04/16/17 13:30 Dose: 100 mls/hr eMAR Start Stop Document 04/16/17 13:30 LA (Rec: 04/16/17 13:38 LA [id number]) Intravenous Solution Start Date 04/16/17 Start Time 13:38 Sodium Chloride (Sodium Chloride 0.9%) 500 mls @ 999 mls/hr IV .Q31M STA Stop: 04/16/17 14:50 Last Admin: 04/16/17 14:38 Dose: 999 mls/hr eMAR Start Stop Document 04/16/17 14:38 LA (Rec: 04/16/17 14:38 LA [id number]) Intravenous Solution Start Date 04/16/17 Start Time 14:38 Potassium Chloride (Potassium Chloride 20 Meq/100 Ml) 20 meq in 100 mls @ 50 mls/hr IVPB Q2H [facility]BIE Stop: 04/16/17 20:44 Last Admin: 04/16/17 22:18 Dose: 50 mls/hr eMAR Start Stop Document 04/16/17 22:18 TTC (Rec: 04/16/17 22:18 TTC [id number]) Intravenous Solution Start Date 04/16/17 Start Time 22:18 End Date 04/16/17 End time 00:18 Total Infusion Time -1320 Ceftriaxone Sodium (Rocephin 1 Gram Ivpb) 1 gm in 100 mls @ 100 mls/hr IVPB DAILY [facility] PRN Reason: Protocol Last Admin: 04/17/17 09:05 Dose: 100 mls/hr eMAR Start Stop Document 04/17/17 09:05 CD (Rec: 04/17/17 09:06 CD [id number]) Intravenous Solution Start Date 04/17/17 Start Time 09:06 Lorazepam (Ativan) 1 mg IVP ONCE ONE PRN Reason: Protocol Stop: 04/19/17 06:16 Last Admin: 04/19/17 06:26 Dose: 1 mg IVP Administration Document 04/19/17 06:26 [facility] (Rec: 04/19/17 06:26 [id number] Charges for Administration # of IVP Administrations 1 Re-Assess: Reassess Psych Meds Document 04/19/17 06:56 STM (Rec: 04/19/17 07:13 [id number] Reassess Psych Med Effective Pneumococcal Polyvalent Vaccine (Pneumovax 23 Vaccine) 0.5 ml IM .ONCE ONE Stop: 04/16/17 22:02 Vancomycin HCl (Vancomycin Inj) 1 gm IVPB ONCE ONE PRN Reason: Protocol Stop: 04/16/17 12:31 Last Admin: 04/16/17 12:30 Dose: 1 gm eMAR Start Stop Document 04/16/17 12:30 LA (Rec: 04/16/17 15:27 LA [id number]) Intravenous Solution Start Date 04/16/17 Start Time 13:00 End Date 04/16/17 End time 16:00 Total Infusion Time 180 - Scribe Statement The provider has reviewed the documentation as recorded by the Jamie Huitron Provider Scribe Attestation: All medical record entries made by the Minnieiblily were at my direction and personally dictated by me. I have reviewed the chart and agree that the record accurately reflects my personal performance of the history, physical exam, medical decision making, and the department course for this patient. I have also personally directed, reviewed, and agree with the discharge instructions and disposition. Disposition/Present on Arrival - Present on Arrival Any Indicators Present on Arrival: Yes History of DVT/PE: No History of Uncontrolled Diabetes: No Urinary Catheter: Yes History of Decub. Ulcer: No History Surgical Site Infection Following: Orthopedic Procedures - Disposition Have Diagnosis and Disposition been Completed?: Yes Diagnosis: Status epilepticus Disposition: HOSPITALIZED Disposition Time: 19:20 Patient Plan: Admission Patient Problems: Current Active Problems Problem Status Onset Seizure Acute Condition: GOOD
[2017-04-16] MEDS ORDERED: cefTRIAXone 2 GM IN NS 2 GM/100 ML BAG IVPB STA (12:29)
[2017-04-16] MEDS ORDERED: Vancomycin 1 g Inj IVPB ONE (12:30)
[2017-04-16] MEDS ORDERED: Vancomycin 1gm in NS 250ml 1 GM/250 ML BAG IVPB STA (12:32)
[2017-04-16 12:41] LABS: ALB/GLOB RATIO 0.8 (1.1-1.8); ALBUMIN 3.6 g/dL (3.0-4.8); ALT/SGPT 37 U/L (7-56); AST/SGOT 50 U/L (17-59); BLOOD UREA NITROGEN 13 mg/dL (7-21); CALCIUM 9.2 mg/dL (8.4-10.5); GFR AFRICAN-AMERICAN > 60; GFR NON-AFRICAN AMERICAN > 60
[2017-04-16 12:55] LABS: URINE BILIRUBIN NEGATIVE (NEGATIVE); URINE BLOOD LARGE (NEGATIVE); URINE GLUCOSE (UA) NEGATIVE (NEGATIVE); URINE LEUKOCYTE ESTERASE NEGATIVE Leu/uL (NEGATIVE); URINE NITRATE NEGATIVE (NEGATIVE); URINE PROTEIN 100 mg/dL (<30 mg/dL); URINE UROBILINOGEN 0.2 E.U./dL (<1 E.U./dL)
--- NOTE | 2017-04-16 13:04 | CT ---
PROCEDURE: CT HEAD WITHOUT CONTRAST. HISTORY: rou tmed exam COMPARISON: 03/18/2017 TECHNIQUE: Axial computed tomography images were obtained through the head/brain without intravenous contrast. Radiation dose: Total exam DLP = 949 mGy-cm. This CT exam was performed using one or more of the following dose reduction techniques: Automated exposure control, adjustment of the mA and/or kV according to patient size, and/or use of iterative reconstruction technique. FINDINGS: HEMORRHAGE: No intracranial hemorrhage. BRAIN: No new cortical effacement is appreciated. Chronic right frontal infarct with encephalomalacia is appreciated. Cerebral atrophy is appreciated elsewhere with small-vessel changes noted in the white matter tracts. Posterior fossa is unremarkable. VENTRICLES: Unremarkable. No hydrocephalus. CALVARIUM: Unremarkable. PARANASAL SINUSES: Unremarkable as visualized. No significant inflammatory changes. MASTOID AIR CELLS: Unremarkable as visualized. No inflammatory changes. OTHER FINDINGS: None. IMPRESSION: No evidence of recent infarct or intracranial hemorrhage. Chronic right frontal infarct. Atrophy and small vessel changes elsewhere.
[2017-04-16 13:38] LABS: URINE APPEARANCE CLEAR (CLEAR); URINE COLOR YELLOW (YELLOW)
[2017-04-16 13:51] LABS: URINE RBC 20 - 25 /hpf (0-2)
[2017-04-16 13:52] LABS: URINE BACTERIA SMALL (NEG)
--- NOTE | 2017-04-16 14:59 | RAD ---
HISTORY: rout med exam COMPARISON: 03/02/2017 FINDINGS: LUNGS: No new focal infiltrate seen. Mild interstitial changes throughout both lung mclaughlin. PLEURA: No significant pleural effusion identified, no pneumothorax apparent. CARDIOVASCULAR: Heart is top normal in size. There is evidence of prior median sternotomy. Aorta is unchanged. Vasculature may be slightly congested. OSSEOUS STRUCTURES: No significant abnormalities. VISUALIZED UPPER ABDOMEN: Normal. OTHER FINDINGS: Right PICC line is noted with its tip in the superior vena cava. IMPRESSION: Mild prominence of the interstitial markings. Slight vascular congestion not excluded. Mild crowding at the lung bases. No definite focal alveolar infiltrate. . Follow-up x-ray suggested.
[2017-04-16 16:07] LABS: VENOUS BLOOD GAS BASE EXCESS 7.4 mmol/L (0.0-2.0); VENOUS BLOOD GAS PO2 219 mm/Hg (30-55); VENOUS BLOOD PH 7.58 (7.32-7.43)
[2017-04-16] MEDS: cefTRIAXone 1 gm 1 GM/100 ML BAG IVPB SCH (17:08)
[2017-04-16] MEDS: Insulin Reg-LOW-Coverage SC SCH ×2 (17:10→22:30)
--- NOTE | 2017-04-16 18:13 | CP.PCM.HP ---
<Merrick Milton - Last Filed: 04/16/17 17:53> History of Present Illness - History of Present Illness History of Present Illness: Mr. Ibarra is a 76 year old male with a past medical history significant for recently diagnosed pancreatic adenocarcinoma, recent left hip fracture s/p repair with Dr. Benítez and DM2 who presents after he had two witnessed seizures earlier today. Patient is accompanied by his daughter, son and granddaughter who provide HPI information. Patients daughter reports that when she went to awake the patient around 0800 this morning, he was "pale, sweaty and shaking all over". She reports that it was a shaking of all limbs with questionable impaired consciousness that lasted for several minutes until ambulance arrived. She endorses that prior to the ambulance arriving, she checked a BS reading and it was 35. She gave the patient orange juice with no complications but also without resolution of his symptoms. It was noted that the patient had a BS reading of "450" before bed last night and was given his usual dose of 14 units of levemir. She also reports that at around 0200, she checked on patient and he was again noted to be "pale and sweaty" but that he often has these symptoms when he is in pain from his left hip. En route to the hospital, EMS notes a similarly described episode that lasted again for several minutes and with bowel/bladder incontinence. He was given a total of 4mg of Ativan without resolution of his symptoms. ROS is limited as patient is awake but somnolent and unresponsive to questioning. In the ED, patient was noted to be hypothermic, with a rectal temperature of 92.2, hypertensive to 202/134mmHg and tachycardia to 116bpm. He was given one dose of Vancomycin, Ceftriaxone, and Keppra as well as two 500ml boluses of NS. He had a CT of his head that was negative for any acute intracranial abnormality and an EKG with an "undetermined" rhythm. PMH: Pancreatic Adenocarcinoma, left hip fracture s/p repair with Dr. Benítez, DM2, and CAD s/p triple CABG PSH: Triple CABG Family History: Unknown Social History: Former smoker, drinks one glass of red wine with dinner nightly and denies any illicit drug use; lives at home with his daughter Allergies: NKDA Home Medications: As per MAR Present on Admission - Present on Admission Any Indicators Present on Admission: No Review of Systems - Review of Systems Systems not reviewed;Unavailable: Altered Mental Status Past Patient History - Infectious Disease Hx of Infectious Diseases: None - Tetanus Immunizations Tetanus Immunization: Unknown - Past Social History Smoking Status: Current Some Days Smoker - CARDIAC Hx Pacemaker: No - PULMONARY Hx Respiratory Disorders: No - NEUROLOGICAL Hx Neurological Disorder: No - HEENT Hx HEENT Problems: No - RENAL Hx Chronic Kidney Disease: No - ENDOCRINE/METABOLIC Hx Diabetes Mellitus Type 2: Yes - HEMATOLOGICAL/ONCOLOGICAL Hx Blood Transfusions: No Hx Blood Transfusion Reaction: No - INTEGUMENTARY Hx Dermatological Problems: No Other/Comment: pancreatic Cancer 12/2016 - MUSCULOSKELETAL/RHEUMATOLOGICAL Hx Falls: Yes - GASTROINTESTINAL Hx Gastrointestinal Disorders: No - GENITOURINARY/GYNECOLOGICAL Hx Genitourinary Disorders: No Other/Comment: pancreatic ca - PSYCHIATRIC Hx Psychophysiologic Disorder: No Hx Depression: No Hx Emotional Abuse: No Hx Physical Abuse: No Hx Substance Use: No - SURGICAL HISTORY Other/Comment: left hip repair 2017 - ANESTHESIA Hx Anesthesia: Yes Hx Anesthesia Reactions: No Hx Malignant Hyperthermia: No Meds Allergies/Adverse Reactions: Allergies Allergy/AdvReac Type Severity Reaction Status Date / Time No Known Allergies Allergy Verified 04/16/17 16:48 Physical Exam - Constitutional Appears: Other (Somnolent; Awake but verbally unresponsive to questioning) - Head Exam Head Exam: ATRAUMATIC, NORMAL INSPECTION, NORMOCEPHALIC - Eye Exam Eye Exam: Normal appearance, PERRL Pupil Exam: NORMAL ACCOMODATION, PERRL - ENT Exam ENT Exam: Mucous Membranes Moist, Normal Exam, Normal External Ear Exam, Normal Oropharynx (No tongue lacerations noted) - Neck Exam Neck exam: Positive for: Normal Inspection. Negative for: Tenderness - Respiratory Exam Respiratory Exam: Clear to Auscultation Bilateral, NORMAL BREATHING PATTERN. absent: Accessory Muscle Use, Chest Wall Tenderness, Decreased Breath Sounds, Prolonged Expiratory Phase, Rales, Rhonchi, Wheezes, Respiratory Distress, Stridor - Cardiovascular Exam Cardiovascular Exam: Tachycardia, REGULAR RHYTHM, +S1, +S2. absent: Bradycardia , Clicks, Diastolic murmur, Gallop, Irregular Rhythm, JVD, RRR, Rubs, +S4, Systolic Murmur - GI/Abdominal Exam GI & Abdominal Exam: Normal Bowel Sounds, Soft. absent: Bruit, Diminished Bowel Sounds, Distended, Firm, Guarding, Hernia, Hyperactive Bowel Sounds, Hypoactive Bowel Sounds, Mass, Organomegaly, Pulsatile Mass, Rebound, Rigid, Tenderness - Extremities Exam Extremities exam: Positive for: normal capillary refill, normal inspection, pedal pulses present. Negative for: calf tenderness, joint swelling, pedal edema, tenderness - Back Exam Back exam: NORMAL INSPECTION. absent: CVA tenderness (L), CVA tenderness (R), muscle spasm, paraspinal tenderness, rash noted, tenderness, vertebral tenderness - Neurological Exam Neurological exam: Altered - Skin Skin Exam: Dry, Intact, Normal Color, Warm Results - Vital Signs Recent Vital Signs: Last Vital Signs Temp 97 F L 04/16/17 17:05 Pulse 104 H 04/16/17 17:05 Resp 21 04/16/17 17:05 BP 122/71 04/16/17 17:05 Pulse Ox 100 04/16/17 17:05 - Labs Result Diagrams: 04/16/17 10:54 04/16/17 11:52 Labs: Laboratory Results - last 24 hr 04/16/17 15:50 pO2 219 H VBG pH 7.58 H VBG pCO2 31.0 L VBG HCO3 29.1 H VBG Total CO2 30.1 H VBG O2 Sat (Calc) 97.2 H VBG Base Excess 7.4 H VBG Potassium 3.6 Sodium 130.0 L Chloride 99.0 Glucose 107 Lactate 1.2 FiO2 21.0 Venous Blood Potassium 3.6 Assessment & Plan - Assessment and Plan (Free Text) Assessment: 76 year old male with a past medical history significant for recently diagnosed pancreatic adenocarcinoma, recent left hip fracture s/p repair with Dr. Benítez and DM2 who presents after he had two witnessed seizures earlier today. In the ED, patient was noted to be hypothermic, with a rectal temperature of 92.2, hypertensive to 202/134mmHg and tachycardia to 116bpm. He was given one dose of Vancomycin, Ceftriaxone, and Keppra as well as two 500ml boluses of NS. He had a CT of his head that was negative for any acute intracranial abnormality and an EKG with an "undetermined" rhythm. Plan: 1. S/P Seizure Activity -CT Head showed no evidence of recent infarct or intracranial hemorrhage, chronic right frontal infarct and atrophy and small vessel changes -Chest X-Ray showed mild prominence of the interstitial markings (slight vascular congestion not excluded) and mild crowding at the lung bases with no definite focal alveolar infiltrate -EKG showed an undetermined rhythm -NPO Diet -Nursing swallow screen pending -UDS pending -Continue to monitor electrolytes with daily CMP, Magnesium and Phosphorous -Seizure, Aspiration and Fall precautions in place -Neurology consulted, all recommendations appreciated 2. SIRS -Patient noted to be hypothermic, with a rectal temperature of 92.2, tachycardic to 116bpm and with a leukocytosis of 14.2 -See Chest X-Ray findings above -UA negative for signs of UTI -Blood/Urine cultures and procalcitonin pending -IV Rocephin for empiric coverage -Continue to monitor leukocytosis with daily CBC's 3. Hypokalemia -Noted to have a potassium level of 3.4 -Replenished with two bags of IV KCl 20meq 4. 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 Roa. - Date & Time Date: 04/16/17 Time: 18:17 Decision To Admit - Pt Status Changed To: Hospital Disposition Of: Inpatient Admission - Admit Certification Admit to Inpatient:: After my assessment, the patient will require hospitalization for at least two midnights. This is because of the severity of symptoms shown, intensity of services needed, and/or the medical risk in this patient being treated as an outpatient. - . Bed Request Type: Telemetry <Kary Roa - Last Filed: 04/17/17 07:22> Results - Vital Signs Recent Vital Signs: Last Vital Signs Temp 97.7 F 04/17/17 06:00 Pulse 85 04/17/17 06:00 Resp 20 04/17/17 06:00 BP 118/75 04/17/17 06:00 Pulse Ox 95 04/17/17 06:00 - Labs Result Diagrams: 04/16/17 10:54 04/16/17 11:52 Labs: Laboratory Results - last 24 hr 04/16/17 04/16/17 04/17/17 15:50 22:02 05:40 pO2 219 H VBG pH 7.58 H VBG pCO2 31.0 L VBG HCO3 29.1 H VBG Total CO2 30.1 H VBG O2 Sat (Calc) 97.2 H VBG Base Excess 7.4 H VBG Potassium 3.6 Sodium 130.0 L Chloride 99.0 Glucose 107 Lactate 1.2 FiO2 21.0 POC Glucose (mg/dL) 110 94 Venous Blood Potassium 3.6 Attending/Attestation - Attestation I have personally seen and examined this patient.: Yes I have fully participated in the care of the patient.: Yes I have reviewed all pertinent clinical information: Yes Notes (Text): 04/16/17 76 year old male with past medical history of pancreatic cancer, recent left hip fracture and diabetes who presented with witnessed seizure episodes at home. He was noted to be hypoglycemic at home. In ER he was found to have leukocytosis and hypothermia. CT head showed no evidence of recent infarct or intracranial hemorrhage; chronic right frontal infarct and atrophy and small vessel changes. Will admit to telemetry unit. Continue with seizure precautions. Neurology evaluation is requested. Will obtain MRI brain and EEG. He presented with SIRS (hypothermia, tachycardia, leukocytosis). UA/CXR are negative. Lactic acid was not elevated. He received vancomycin and ceftriaxone in ER. Can continue with ceftriaxone for now while awaiting cultures. Continue with insulin ss for now for diabetes. Will obtain A1c. His levemir will be held for now while monitoring his fingersticks. Will replete and repeat potassium. Kary Roa MD Hospitalist.
--- NOTE | 2017-04-16 20:25 | CP.PCM.CON ---
History of Present Illness - History of Present Illness History of Present Illness: Mr. Ibarra is a 76-year-old man with a past medical history of pancreatic cancer (diagnosed last year), subsequent diabetes, recent left hip fracture with total hip replacement, chronic CVA, sepsis, who was brought to the ED after a witnessed generalized tonic-clonic seizure. He was given Ativan and Keppra in the ED. He continues to be post-ictal. Review of Systems - Review of Systems Systems not reviewed;Unavailable: Altered Mental Status Past Patient History - Infectious Disease Hx of Infectious Diseases: None - Tetanus Immunizations Tetanus Immunization: Unknown - Past Social History Smoking Status: Current Some Days Smoker - CARDIAC Hx Pacemaker: No - PULMONARY Hx Respiratory Disorders: No - NEUROLOGICAL Hx Neurological Disorder: No - HEENT Hx HEENT Problems: No - RENAL Hx Chronic Kidney Disease: No - ENDOCRINE/METABOLIC Hx Diabetes Mellitus Type 2: Yes - HEMATOLOGICAL/ONCOLOGICAL Hx Blood Transfusions: No Hx Blood Transfusion Reaction: No - INTEGUMENTARY Hx Dermatological Problems: No Other/Comment: pancreatic Cancer 12/2016 - MUSCULOSKELETAL/RHEUMATOLOGICAL Hx Falls: Yes - GASTROINTESTINAL Hx Gastrointestinal Disorders: No - GENITOURINARY/GYNECOLOGICAL Hx Genitourinary Disorders: No Other/Comment: pancreatic ca - PSYCHIATRIC Hx Psychophysiologic Disorder: No Hx Depression: No Hx Emotional Abuse: No Hx Physical Abuse: No Hx Substance Use: No - SURGICAL HISTORY Other/Comment: left hip repair 2017 - ANESTHESIA Hx Anesthesia: Yes Hx Anesthesia Reactions: No Hx Malignant Hyperthermia: No Meds Allergies/Adverse Reactions: Allergies Allergy/AdvReac Type Severity Reaction Status Date / Time No Known Allergies Allergy Verified 04/16/17 16:48 - Medications Medications: Current Medications Heparin Sodium (Porcine) (Heparin) 5,000 units SC Q12 BARBIE PRN Reason: Protocol Potassium Chloride (Potassium Chloride 20 Meq/100 Ml) 20 meq in 100 mls @ 50 mls/hr IVPB Q2H BARBIE Stop: 04/16/17 20:44 Last Admin: 04/16/17 17:14 Dose: 50 mls/hr Ceftriaxone Sodium (Rocephin 1 Gram Ivpb) 1 gm in 100 mls @ 100 mls/hr IVPB DAILY BARBIE PRN Reason: Protocol Last Admin: 04/16/17 17:08 Dose: Not Given Insulin Human Regular (Humulin R Low) 0 units SC Q6H BARBIE PRN Reason: Protocol Last Admin: 04/16/17 17:10 Dose: Not Given Levetiracetam (Keppra) 500 mg PO BID BARBIE Pantoprazole Sodium (Protonix Inj) 40 mg IVP DAILY BARBIE Physical Exam - Neurological Exam Additional comments: Eyes closed, forced close, does not cooperate with exam, responds verbally by saying "ouch" to painful stimulus, moves all extremities to painful stimulus, somnolent otherwise. Reflexes are hyper on the left with upgoing plantar response, and normal on the right. Results - Vital Signs Recent Vital Signs: Last Vital Signs Temp 97 F L 04/16/17 17:05 Pulse 104 H 04/16/17 17:05 Resp 21 04/16/17 17:05 BP 122/71 04/16/17 17:05 Pulse Ox 100 04/16/17 17:05 - Labs Result Diagrams: 04/16/17 10:54 04/16/17 11:52 Labs: Laboratory Results - last 24 hr 04/16/17 15:50 pO2 219 H VBG pH 7.58 H VBG pCO2 31.0 L VBG HCO3 29.1 H VBG Total CO2 30.1 H VBG O2 Sat (Calc) 97.2 H VBG Base Excess 7.4 H VBG Potassium 3.6 Sodium 130.0 L Chloride 99.0 Glucose 107 Lactate 1.2 FiO2 21.0 Venous Blood Potassium 3.6 Assessment & Plan (1) Seizure Assessment and Plan: Considering the history of cancer and previous right frontal lobe stroke, I recommend the followin. Telemetry with seizure precautions and Q4 neuro-checks. 2. MRI of the brain with and without contrast 3. EEG for one hour 4. Start Keppra 500 mg IV Q12 hours 5. Aspirin 81 mg daily 6. Lipid panel 7. PT/OT eval and treat 8. Echocardiogram with bubble study 9. DVT Px 10. Case management consult Thank you. Status: Acute Priority: High
[2017-04-16 22:01] VITALS: BMI 22.8
[2017-04-16] MEDS ORDERED: Influenza Vaccine 60 mcg/0.5 mL SYR (4YR UP) IM ONE (22:01)
[2017-04-16] MEDS ORDERED: Pneumococcal 23-Valent Vaccine IM ONE (22:01)
[2017-04-16] MEDS: levETIRAcetam 500mg IVPB 500 MG/100 ML BAG IV SCH (22:15)
[2017-04-17] MEDS: Insulin Reg-LOW-Coverage SC SCH ×4 (05:44→22:29)
[2017-04-17 08:42] LABS: BASO # 0.02 K/mm3 (0.0-2.0); BASO % 0.2 % (0.0-3.0); EOS % 0.2 % (1.5-5.0); GRAN # 11.08 (1.4-6.5); GRAN % 83.7 % (50.0-68.0); LYMPH # 1.3 (1.2-3.4); LYMPH % 9.7 % (22.0-35.0); MEAN CELL VOLUME 86.8 fl (80.0-105.0); MEAN CORPUSCULAR HEMOGLOBIN 28.1 pg (25.0-35.0); MEAN CORPUSCULAR HGB CONC 32.4 g/dl (31.0-37.0); MEAN PLATELET VOLUME 9.9 fl (7.0-11.0); MONO # 0.8 (0.1-0.6); MONO % 6.2 % (1.0-6.0); RBC 3.56 10^6/uL (3.5-6.1); RED CELL DISTRIBUTION WIDTH 14.5 % (11.5-14.5); WHITE BLOOD COUNT 13.2 10^3/ul (4.5-11.0)
[2017-04-17 09:03] LABS: ALB/GLOB RATIO 0.8 (1.1-1.8); ALBUMIN 2.7 g/dL (3.0-4.8); ALT/SGPT 31 U/L (7-56); AST/SGOT 39 U/L (17-59); BLOOD UREA NITROGEN 17 mg/dL (7-21); CALCIUM 8.4 mg/dL (8.4-10.5); GFR AFRICAN-AMERICAN > 60; GFR NON-AFRICAN AMERICAN > 60; MAGNESIUM 1.8 mg/dL (1.7-2.2)
[2017-04-17] MEDS: cefTRIAXone 1 gm 1 GM/100 ML BAG IVPB SCH (09:05)
[2017-04-17] MEDS: levETIRAcetam 500mg IVPB 500 MG/100 ML BAG IV SCH ×2 (09:05→21:23)
--- NOTE | 2017-04-17 09:33 | CP.PCM.PN ---
Subjective - Date & Time of Evaluation Date of Evaluation: 04/17/17 Time of Evaluation: 09:30 - Subjective Subjective: Mr. Ibarra was seen and examined at the bedside. He is awake but mumble words that are incomprehensible. He is able to follow simple commands such as finger to nose test, strength test. He shakes his head to some questions. He denies any headache, dizziness, nausea, or vomiting. There was no untoward events overnight. Objective - Vital Signs/Intake and Output Vital Signs (last 24 hours): Temp Pulse Resp BP Pulse Ox 97.7 F 85 20 118/75 95 04/17/17 06:00 04/17/17 06:00 04/17/17 06:00 04/17/17 06:00 04/17/17 06:00 Intake and Output: 04/17/17 04/17/17 06:59 18:59 Intake Total 1850 Output Total 1300 Balance 550 - Medications Medications: Current Medications Heparin Sodium (Porcine) (Heparin) 5,000 units SC Q12 BARBIE PRN Reason: Protocol Last Admin: 04/17/17 09:05 Dose: 5,000 units Ceftriaxone Sodium (Rocephin 1 Gram Ivpb) 1 gm in 100 mls @ 100 mls/hr IVPB DAILY BARBIE PRN Reason: Protocol Last Admin: 04/17/17 09:05 Dose: 100 mls/hr Levetiracetam (Keppra 500mg Ivpb) 500 mg in 100 mls @ 400 mls/hr IV Q12 BARBIE Last Admin: 04/17/17 09:05 Dose: 400 mls/hr Insulin Human Regular (Humulin R Low) 0 units SC Q6H BARBIE PRN Reason: Protocol Last Admin: 04/17/17 05:44 Dose: Not Given Pantoprazole Sodium (Protonix Inj) 40 mg IVP DAILY BARBIE Last Admin: 04/17/17 09:05 Dose: 40 mg - Labs Labs: 04/17/17 08:00 04/17/17 08:00 APTT 40.9 Seconds (25.1-36.5) H 04/17/17 08:00 - Constitutional Appears: No Acute Distress - Head Exam Head Exam: NORMAL INSPECTION - Neurological Exam Neurological Exam: Alert, Awake Neuro motor strength exam: Left Upper Extremity: 3, Right Upper Extremity: 3, Left Lower Extremity: 2/1, Right Lower Extremity: 2/ Additional comments: He is able to participate to some of the assessment, able to do finger to nose test, and strength test. Assessment and Plan (1) Seizure Assessment & Plan: Case discussed with Dr. Trejo, continue all current medical regimen including AED , fall, and seizure precaution. Pending MRI of the brain and EEG. Status: Acute
--- NOTE | 2017-04-17 09:53 | CARD ---
APPROVED REPORT EKG Measurement Heart [id number] <Conclusion> Undetermined rhythm Probably Sinus Tacycardia RBBB LAHB Severe artifact present
[2017-04-17] MEDS: Piperacillin/Tazobact 3.375 gm 100 ML IVPB SCH ×3 (12:36→23:31)
[2017-04-17] MEDS ORDERED: Iohexol 240 (50 ml) ONE (14:11)
[2017-04-17] MEDS ORDERED: HYDROmorphone 1 mg/ml ISec IM PRN (17:34)
[2017-04-17] MEDS: Amylase/Lipase/Protease 5,000 Units ECC PO SCH (20:49)
--- NOTE | 2017-04-18 04:56 | CON ---
DATE: 04/17/2017 LOCATION: The patient is seen in room 378, bed 1. CHIEF COMPLAINT: Positive blood cultures x1 day. HISTORY OF PRESENT ILLNESS: This is a 76-year-old male whose daughter is at the bedside. The patient has a history of adenocarcinoma of the pancreas with the biliary stent or pancreatic stent and a history of diabetes mellitus, a longtime smoker, coronary artery disease. The patient with a history of hip surgery and cardiac stents with no known allergies admitted to the emergency room yesterday with a change in mental status. His daughter states that he had been deteriorating for the past one week and progressively getting weak. She did not note he had any fevers and in the hospital he was hypothermic in the emergency room yesterday. He is a poor historian. He is having some abdominal pain right upper quadrant in the right epigastric area. There is no nausea or vomiting. No chest pain. No diarrhea or constipation. PAST MEDICAL HISTORY: Significant for adenocarcinoma of the pancreas, diabetes mellitus and coronary artery disease. PAST SURGICAL HISTORY: Significant for left hip surgery, cardiac stents and pancreatic stenting. ALLERGIES: THE PATIENT HAS NO KNOWN ALLERGIES. MEDICATIONS: At home include insulin, oxycodone, lipase, protease. PHYSICAL EXAMINATION: VITAL SIGNS: The patient's temperature is 97, in the emergency room it was 92.2, heart rate of 116, respiratory rate of 21. Blood pressure is 110 /67. The patient had a oxygen saturation down to 92%. HEENT: Unremarkable. NECK: Supple. LUNGS: Decreased breath sounds. HEART: Normal. ABDOMEN: There is mild abdominal tenderness. No rebound, no guarding. LABORATORY DATA: reveals a white count of 40,000, hemoglobin of 12, and platelets of 500, 79% granulocytosis and chemistry reveals BUN of 17 and creatinine of 0.7, alkaline phosphatase is 170. Urinalysis is noted. Toxicology is noted. Microbiology reveals blood culture is positive for a gram-positive cocci in chains, it is not enterococcus. It is probably strep by . ASSESSMENT AND PLAN: He is a 76-year-old male with adenocarcinoma of the pancreas, pancreatic stenting, diabetes mellitus, coronary artery disease admitted with hypothermia, tachycardia, dyspnea, hypoxia with positive blood cultures, #1 is severe sepsis secondary to biliary and pancreatic stent infection with obstruction. The patient does have an elevated alkaline phosphatase of 170 with normal AST and ALT. We will treat the patient with Zosyn. Repeat the blood and wait for the identification of gram-positive streptococcus in the blood. We will discontinue ceftriaxone and order a CAT scan of the abdomen and pelvis and GI consultation, Dr. Chicho Trujillo on consultation. We will follow closely with you. Overall prognosis is quite poor for this patient. Jose David Gracia MD
[2017-04-18] MEDS: Piperacillin/Tazobact 3.375 gm 100 ML IVPB SCH ×3 (05:01→17:47)
[2017-04-18] MEDS: Insulin Reg-LOW-Coverage SC SCH ×4 (05:06→21:59)
[2017-04-18 07:14] LABS: BASO # 0.02 K/mm3 (0.0-2.0); BASO % 0.2 % (0.0-3.0); EOS # 0.4 (0.0-0.7); EOS % 4.8 % (1.5-5.0); GRAN # 5.88 (1.4-6.5); GRAN % 72.6 % (50.0-68.0); HEMOGLOBIN 9.8 g/dL (14.0-18.0); LYMPH # 1.2 (1.2-3.4); LYMPH % 14.8 % (22.0-35.0); MEAN CELL VOLUME 88.4 fl (80.0-105.0); MEAN CORPUSCULAR HEMOGLOBIN 27.8 pg (25.0-35.0); MEAN CORPUSCULAR HGB CONC 31.4 g/dl (31.0-37.0); MEAN PLATELET VOLUME 9.8 fl (7.0-11.0); MONO # 0.6 (0.1-0.6); MONO % 7.6 % (1.0-6.0); RBC 3.53 10^6/uL (3.5-6.1); RED CELL DISTRIBUTION WIDTH 14.7 % (11.5-14.5); WHITE BLOOD COUNT 8.1 10^3/ul (4.5-11.0)
[2017-04-18] MEDS: Amylase/Lipase/Protease 5,000 Units ECC PO SCH ×3 (07:30→17:45)
[2017-04-18 07:49] LABS: ALBUMIN 2.4 g/dL (3.0-4.8); ALT/SGPT 27 U/L (7-56); AST/SGOT 38 U/L (17-59); BLOOD UREA NITROGEN 20 mg/dL (7-21); CALCIUM 8.3 mg/dL (8.4-10.5); GFR AFRICAN-AMERICAN > 60; GFR NON-AFRICAN AMERICAN > 60
[2017-04-18 07:50] LABS: ALB/GLOB RATIO 0.7 (1.1-1.8)
--- NOTE | 2017-04-18 08:07 | CP.PCM.PN ---
Subjective - Date & Time of Evaluation Date of Evaluation: 04/18/17 Time of Evaluation: 08:02 - Subjective Subjective: Mr. Ibarra was seen and examined at the bedside. He is more alert in comparison from yesterday. He denies any headache, dizziness,, but able to move his upper extremities, but weak. He is able to move his right leg, but unable to move his left leg. He denies any pain. He further claims that he is moving, but no movement noted. Sensation was asymmetrical.. He is able to verbalize his immediate needs such as the urge to pee.There was no untoward events overnight. Objective - Vital Signs/Intake and Output Vital Signs (last 24 hours): Temp Pulse Resp BP Pulse Ox 98.5 F 73 20 109/69 97 04/18/17 05:34 04/18/17 05:34 04/18/17 05:34 04/18/17 05:34 04/18/17 05:34 Intake and Output: 04/18/17 04/18/17 06:59 18:59 Intake Total 120 Balance 120 - Medications Medications: Current Medications Amylase (Pancrease [id number] U) 1 unit PO ACTID [facility] Last Admin: 04/17/17 20:49 Dose: Not Given Heparin Sodium (Porcine) (Heparin) 5,000 units SC Q12 BARBIE PRN Reason: Protocol Last Admin: 04/17/17 21:22 Dose: 5,000 units Hydromorphone HCl (Dilaudid) 1 mg IM Q6 PRN PRN Reason: Pain, severe (8-10) Levetiracetam (Keppra 500mg Ivpb) 500 mg in 100 mls @ 400 mls/hr IV Q12 [facility] Last Admin: 04/17/17 21:23 Dose: 400 mls/hr Piperacillin Sod/Tazobactam Sod (Zosyn 3.375 In Ns 100ml) 100 mls @ 200 mls/hr IVPB Q6 BARBIE PRN Reason: Protocol Stop: 04/26/17 12:01 Last Admin: 04/18/17 05:01 Dose: 200 mls/hr Insulin Human Regular (Humulin R Low) 0 units SC Q6H BARBIE PRN Reason: Protocol Last Admin: 04/18/17 05:06 Dose: Not Given Pantoprazole Sodium (Protonix Inj) 40 mg IVP DAILY BARBIE Last Admin: 04/17/17 09:05 Dose: 40 mg Tramadol HCl (Ultram) 50 mg PO QID PRN PRN Reason: Pain, moderate (4-7) Last Admin: 04/17/17 23:31 Dose: 50 mg - Labs Labs: 04/18/17 06:00 04/18/17 06:00 APTT 40.9 Seconds (25.1-36.5) H 04/17/17 08:00 - Constitutional Appears: No Acute Distress - Head Exam Head Exam: NORMAL INSPECTION - Neurological Exam Neurological Exam: Awake Neuro motor strength exam: Left Upper Extremity: 3, Right Upper Extremity: 3, Left Lower Extremity: 0, Right Lower Extremity: 2/1 Additional comments: He is able to answer questions appropriately and follow simple commands. Sensation is asymmetrical especially to his left lower extremity. Assessment and Plan (1) Seizure Assessment & Plan: Case discussed with Dr. Sosa, continue all current medical regimen. Follow up EEG and to do stat CT of the head without contrast to evaluate any brain pathology which is affecting his left lower extremity. Status: Acute
--- NOTE | 2017-04-18 10:10 | CT ---
PROCEDURE: CT HEAD WITHOUT CONTRAST. HISTORY: seizure COMPARISON: 04/16/2017 TECHNIQUE: Axial computed tomography images were obtained through the head/brain without intravenous contrast. Radiation dose: Total exam DLP = 989 mGy-cm. This CT exam was performed using one or more of the following dose reduction techniques: Automated exposure control, adjustment of the mA and/or kV according to patient size, and/or use of iterative reconstruction technique. FINDINGS: HEMORRHAGE: No intracranial hemorrhage. BRAIN: No mass effect or edema. There is focal encephalomalacia in the right frontal lobe. There is a chronic lacunar infarct in the right basal ganglia and parker radiata VENTRICLES: Unremarkable. No hydrocephalus. CALVARIUM: Unremarkable. PARANASAL SINUSES: Unremarkable as visualized. No significant inflammatory changes. MASTOID AIR CELLS: Unremarkable as visualized. No inflammatory changes. OTHER FINDINGS: None. IMPRESSION: No acute intracranial findings
--- NOTE | 2017-04-18 10:38 | CT ---
PROCEDURE: CT Abdomen and Pelvis without intravenous contrast HISTORY: Biliary stent obstruction COMPARISON: 12/31/2016 CT TECHNIQUE: Without contrast.. Contrast Dose: Radiation dose: Total exam DLP = 884 mGy-cm. This CT exam was performed using one or more of the following dose reduction techniques: Automated exposure control, adjustment of the mA and/or kV according to patient size, and/or use of iterative reconstruction technique. FINDINGS: LOWER THORAX: There is bibasilar consolidation with air bronchograms. This is a new finding and is suspicious for pneumonia. LIVER: Unremarkable. No gross lesion or ductal dilatation. GALLBLADDER AND BILE DUCTS: There is dilatation of the common duct which measures between 18 and 20 mm in diameter. There is also intrahepatic ductal dilatation. The findings are unchanged. There is no evidence of a biliary stent PANCREAS: Unremarkable. No gross lesion or ductal dilatation. SPLEEN: Unremarkable. ADRENALS: Unremarkable. No mass. KIDNEYS AND URETERS: Unremarkable. No hydronephrosis. No solid mass. VASCULATURE: Unremarkable. No aortic aneurysm. BOWEL: Unremarkable. No obstruction. No gross mural thickening. APPENDIX: Unremarkable. Normal appendix. PERITONEUM: Unremarkable. No free fluid. No free air. LYMPH NODES: Unremarkable. No enlarged lymph nodes. BLADDER: Unremarkable. REPRODUCTIVE: Unremarkable. BONES: No acute fracture. OTHER FINDINGS: None. IMPRESSION: There is dilatation of the common duct which measures between 18 and 20 mm in diameter. There is also intrahepatic ductal dilatation. The findings are unchanged. There is no evidence of a biliary stent There is bibasilar consolidation with air bronchograms. This is a new finding and is suspicious for pneumonia.
[2017-04-18] MEDS: levETIRAcetam 500mg IVPB 500 MG/100 ML BAG IV SCH ×2 (11:09→21:11)
[2017-04-18] MEDS: Vancomycin 1gm in NS 250ml 1 GM/250 ML BAG IVPB SCH ×2 (11:19→22:01)
--- NOTE | 2017-04-18 12:35 | PN ---
DATE: 04/18/2017 TIME: 9:45 a.m. SUBJECTIVE: Mr. Ibarra is a 76-year-old gentleman with pancreatic carcinoma. He had a metallic biliary stent placement by Dr. Bradley in 12/2016. He subsequently had a left hip fracture/ORIF in 01/2017. He is admitted now with mental status changes and sepsis. He has a past medical history for diabetes and coronary artery disease. His alkaline phosphatase is slightly elevated. His bilirubin is normal. He has positive blood cultures. At this time, I would recommend a biliary scan to evaluate stent patency. He is being treated for his infection. Dr. Bradley is his GI application support consultant. I will speak with him. Chicho Trujillo MD MTDD
--- NOTE | 2017-04-18 15:21 | NM ---
PROCEDURE: Nuclear Medicine Hepatobiliary Scan HISTORY: Panc CA. Metal biliary stent. ? stent patency COMPARISON: 04/18/2017 CT abdomen and pelvis TECHNIQUE: 6.0 mCi of technetium 99m Mebrofenin was administered intravenously. Planar images of the abdomen were obtained at 5 min intervals to 60 mins. Delayed images were also obtained. FINDINGS: LIVER: Timely and homogenous uptake. COMMON BILE DUCT: identified at 15 mins. GALLBLADDER: identified at 45 mins. SMALL BOWEL: Identified at 60 mins. IMPRESSION: Normal Hepatobiliary Scan. The cystic duct is patent.
--- NOTE | 2017-04-18 16:12 | CP.PCM.PN ---
Subjective - Date & Time of Evaluation Date of Evaluation: 04/18/17 Time of Evaluation: 11:40 - Subjective Subjective: Patient is comfortable in bed today, no fevers overnight, no abdominal pain. Objective - Vital Signs/Intake and Output Vital Signs (last 24 hours): Temp Pulse Resp BP Pulse Ox 98.5 F 73 20 109/69 97 04/18/17 05:34 04/18/17 05:34 04/18/17 05:34 04/18/17 05:34 04/18/17 05:34 Intake and Output: 04/18/17 04/18/17 06:59 18:59 Intake Total 120 Balance 120 - Medications Medications: Current Medications Amylase (Pancrease 94605 U-5000 U-60322 U) 1 unit PO ACTID [facility] Last Admin: 04/17/17 20:49 Dose: Not Given Heparin Sodium (Porcine) (Heparin) 5,000 units SC Q12 [facility] PRN Reason: Protocol Last Admin: 04/17/17 21:22 Dose: 5,000 units Hydromorphone HCl (Dilaudid) 1 mg IM Q6 PRN PRN Reason: Pain, severe (8-10) Levetiracetam (Keppra 500mg Ivpb) 500 mg in 100 mls @ 400 mls/hr IV Q12 [facility] Last Admin: 04/17/17 21:23 Dose: 400 mls/hr Piperacillin Sod/Tazobactam Sod (Zosyn 3.375 In Ns 100ml) 100 mls @ 200 mls/hr IVPB Q6 [facility] PRN Reason: Protocol Stop: 04/26/17 12:01 Last Admin: 04/18/17 05:01 Dose: 200 mls/hr Insulin Human Regular (Humulin R Low) 0 units SC Q6H [facility] PRN Reason: Protocol Last Admin: 04/18/17 05:06 Dose: Not Given Pantoprazole Sodium (Protonix Inj) 40 mg IVP DAILY [facility] Last Admin: 04/17/17 09:05 Dose: 40 mg Tramadol HCl (Ultram) 50 mg PO QID PRN PRN Reason: Pain, moderate (4-7) Last Admin: 04/17/17 23:31 Dose: 50 mg - Labs Labs: 04/18/17 06:00 04/18/17 06:00 APTT 40.9 Seconds (25.1-36.5) H 04/17/17 08:00 - Constitutional Appears: Chronically Ill - Head Exam Head Exam: NORMAL INSPECTION - Neck Exam Neck Exam: absent: Meningismus - Respiratory Exam Respiratory Exam: Decreased Breath Sounds - Cardiovascular Exam Cardiovascular Exam: +S1, +S2 - GI/Abdominal Exam GI & Abdominal Exam: Soft. absent: Tenderness Assessment and Plan - Assessment and Plan (Free Text) Plan: Assessment severe sepsis due to bibasilar HCAP, R/O biliary stent infection history of severe sepsis due to methicillin-resistant Staph aureus bacteremia, R /O due to bilateral lower extremity cellulitis R/O biliary tree infection chronic CHF in this patient with CAD pancreatic head mass, S/P EUS and percutaneous drain placement S/P biliary stent placement DM recent left hip fracture S/P surgery Plan started patient on Vancomycin and will continue Zosyn (day 2); blood cx on 04/16 are showing Strep species and we are awaiting final results - will repeat blood cx today KIKE done 03/11/2017 was negative will monitor clinically follow up HIDA scan results
[2017-04-19] MEDS: Piperacillin/Tazobact 3.375 gm 100 ML IVPB SCH ×4 (00:04→18:42)
[2017-04-19] MEDS: Insulin Reg-LOW-Coverage SC SCH ×4 (05:38→22:00)
--- NOTE | 2017-04-19 06:43 | CON ---
DATE: 04/18/2016 REASON FOR CONSULTATION: Sepsis, history of pancreatic cancer, history of biliary stent placement. HISTORY OF PRESENT ILLNESS: This 76-year-old patient with a past medical history of pancreatic carcinoma, status post biliary stent placement, PTC, then followed by biliary covered metal stent placement, status post left hip fracture, status post open reduction and internal fixation, history of diabetes mellitus, was admitted following seizure episodes. The patient was found to be pale, sweaty and found to have hypoglycemia. In the ER, the patient was found to be hypothermic with a temperature of 92.2 and hypertensive, tachycardic. The patient did have some blood cultures done and it was growing gram-positive cocci. Denies any vomiting or diarrhea. The patient also noticed to have some change in mental status when in the ER. The patient was known to have progressively getting weaker for the past few days. He has some abdominal discomfort especially in the upper abdomen. OTHER PAST MEDICAL HISTORY: Significant as above. History of coronary artery disease and diabetes mellitus. SURGICAL HISTORY: Positive as above. History of PCI and left hip surgery and status post PTC, then status post biliary stent placement. ALLERGIES: NO KNOWN DRUG ALLERGIES. REVIEW OF SYSTEMS: Positive as above. Limited. PHYSICAL EXAMINATION: GENERAL: The patient is lying on the bed, not in acute distress. VITAL SIGNS: Temperature 97.7, blood pressure 139/89, pulse 79, respirations 20, and O2 saturations 96%. HEENT: Atraumatic. Anicteric. NECK: Supple. HEART: S1 and S2 heard. LUNGS: Bilateral air entry present. ABDOMEN: Soft and there is mild tenderness in the epigastric region with deep palpation. EXTREMITIES: No edema, no cyanosis. NEUROLOGIC: Alert. Moves all the extremities. LABORATORY DATA: When he came into the hospital, his white blood cell count was 14.1, hemoglobin 12.6, hematocrit 32.2, platelets 500. The WBC count has come down to 8.1, hemoglobin 9.8, hematocrit 31.2, platelets 346. His alkaline phosphatase on admission was 170, now it is 147. Rest of the LFTs were essentially unremarkable. Bilirubin normal. IMAGING DATA: The patient had a CT scan of the abdomen and pelvis done, which has reviewed and appears to have dilated CBD, but no obvious stent was seen. The patient had a HIDA scan done. CBD visualized and a small amount of contrast was seen in the duodenum. IMPRESSION: This is a 76-year-old patient with a past medical history of diabetes mellitus and coronary artery disease, admitted with sepsis, hypothermia, found to have gram-positive cocci in the blood cultures. The CAT scan showed a nonvisualization of the metallic stent. Liver function tests remained relatively normal except mildly elevated alkaline phosphatase. The patient did have an endoscopic retrograde cholangiopancreatography, was found to have duodenal wall involvement of the tumor. The patient had a percutaneous transhepatic cholangiography and placement of the wire for endoscopic retrograde cholangiopancreatography and placement of the stent before. RECOMMENDATIONS: We would recommend; 1. Continue the antibiotics. 2. Would consider repeat ERCP and placement of the stent. Thank you very much for allowing us to participate in the care of the patient. Yomaira Bradley MD JOSEF
[2017-04-19 07:30] LABS: ALBUMIN 2.5 g/dL (3.0-4.8); ALT/SGPT 28 U/L (7-56); AST/SGOT 37 U/L (17-59); BASO # 0.02 K/mm3 (0.0-2.0); BASO % 0.2 % (0.0-3.0); BLOOD UREA NITROGEN 17 mg/dL (7-21); CALCIUM 8.2 mg/dL (8.4-10.5); EOS # 0.4 (0.0-0.7); GFR AFRICAN-AMERICAN > 60; GFR NON-AFRICAN AMERICAN > 60; GRAN # 6.7 (1.4-6.5); GRAN % 76.1 % (50.0-68.0); HEMOGLOBIN 10.7 g/dL (14.0-18.0); LYMPH % 11.8 % (22.0-35.0); MEAN CELL VOLUME 88.8 fl (80.0-105.0); MEAN CORPUSCULAR HEMOGLOBIN 27.9 pg (25.0-35.0); MEAN CORPUSCULAR HGB CONC 31.5 g/dl (31.0-37.0); MEAN PLATELET VOLUME 10.2 fl (7.0-11.0); MONO # 0.6 (0.1-0.6); MONO % 6.9 % (1.0-6.0); RBC 3.83 10^6/uL (3.5-6.1); RED CELL DISTRIBUTION WIDTH 14.6 % (11.5-14.5); WHITE BLOOD COUNT 8.8 10^3/ul (4.5-11.0)
[2017-04-19 07:35] LABS: ALB/GLOB RATIO 0.8 (1.1-1.8)
[2017-04-19] MEDS: Amylase/Lipase/Protease 5,000 Units ECC PO SCH ×3 (08:07→17:00)
[2017-04-19] MEDS: levETIRAcetam 500mg IVPB 500 MG/100 ML BAG IV SCH ×2 (11:05→21:09)
[2017-04-19] MEDS: Vancomycin 1gm in NS 250ml 1 GM/250 ML BAG IVPB SCH ×2 (11:07→22:32)
--- NOTE | 2017-04-19 14:02 | CP.PCM.PN ---
<Elisa Campbell - Last Filed: 04/19/17 14:03> Subjective - Date & Time of Evaluation Date of Evaluation: 04/19/17 Time of Evaluation: 09:50 - Subjective Subjective: Seen and examined at the bedside earlier today, chart reviewed. Patient was reported to have some twitching and given dose of Ativan. This morning the patient is lethargic but arousable. No reports of any nausea, vomiting, or abdominal pain fever or chills. Objective - Vital Signs/Intake and Output Vital Signs (last 24 hours): Temp Pulse Resp BP Pulse Ox 97.4 F L 80 20 119/75 96 04/19/17 12:00 04/19/17 12:00 04/19/17 12:00 04/19/17 12:00 04/19/17 12:00 Intake and Output: 04/19/17 04/19/17 06:59 18:59 Intake Total 1170 Output Total 1800 Balance -630 - Medications Medications: Current Medications Amylase (Pancrease 19080 U-5000 U-53773 U) 1 unit PO ACTID [facility] Last Admin: 04/19/17 13:08 Dose: 1 unit Heparin Sodium (Porcine) (Heparin) 5,000 units SC Q12 [facility] PRN Reason: Protocol Last Admin: 04/19/17 11:04 Dose: 5,000 units Hydromorphone HCl (Dilaudid) 1 mg IM Q6 PRN PRN Reason: Pain, severe (8-10) Last Admin: 04/18/17 11:08 Dose: 1 mg Levetiracetam (Keppra 500mg Ivpb) 500 mg in 100 mls @ 400 mls/hr IV Q12 [facility] Last Admin: 04/19/17 11:05 Dose: 400 mls/hr Piperacillin Sod/Tazobactam Sod (Zosyn 3.375 In Ns 100ml) 100 mls @ 200 mls/hr IVPB Q6 [facility] PRN Reason: Protocol Stop: 04/26/17 12:01 Last Admin: 04/19/17 06:28 Dose: 200 mls/hr Vancomycin HCl (Vancomycin 1gm) 1 gm in 250 mls @ 167 mls/hr IVPB Q12H [facility] PRN Reason: Protocol Last Admin: 04/19/17 11:07 Dose: 167 mls/hr Insulin Human Regular (Humulin R Low) 0 units SC Q6H [facility] PRN Reason: Protocol Last Admin: 04/19/17 11:05 Dose: 1 units Pantoprazole Sodium (Protonix Inj) 40 mg IVP DAILY [facility] Last Admin: 04/19/17 11:05 Dose: 40 mg Tramadol HCl (Ultram) 50 mg PO QID PRN PRN Reason: Pain, moderate (4-7) Last Admin: 04/19/17 02:16 Dose: 50 mg - Labs Labs: 04/19/17 06:45 04/19/17 06:45 APTT 40.9 Seconds (25.1-36.5) H 04/17/17 08:00 - Constitutional Appears: No Acute Distress - Eye Exam Eye Exam: absent: Scleral icterus - ENT Exam ENT Exam: Mucous Membranes Moist - Neck Exam Neck Exam: Normal Inspection - Respiratory Exam Respiratory Exam: Decreased Breath Sounds, NORMAL BREATHING PATTERN. absent: Respiratory Distress - Cardiovascular Exam Cardiovascular Exam: +S1, +S2 - GI/Abdominal Exam GI & Abdominal Exam: Soft, Normal Bowel Sounds. absent: Guarding, Tenderness, Rebound - Extremities Exam Extremities Exam: absent: Pedal Edema - Neurological Exam Neurological Exam: Altered (s/p dose of Ativan, lethargic but arousable) - Skin Skin Exam: Dry, Warm Assessment and Plan - Assessment and Plan (Free Text) Assessment: Assessment: Sepsis, found to have gram-positive cocci in blood culture Seizure History of pancreatic cancer status post biliary stents, status post CT scan showing nonvisualization of the metallic stent Mildly elevated alkaline phosphatase History of diabetes mellitus Plan: Diet as tolerated when fully awake, on Pancreatic enzymes prior to meals Continue IV antibiotics on Keppra on Heparin SQ pain mgt Monitor LFTs Continue GI prophylaxis Patient would benefit from repeat ERCP and placement of stent, we will consider when patient is optimized Seen and discussed with Dr. Bradley. <Yomaira Bradley V - Last Filed: 04/20/17 22:48> Objective - Vital Signs/Intake and Output Vital Signs (last 24 hours): Temp Pulse Resp BP Pulse Ox 98.7 F 78 20 145/97 H 98 04/19/17 18:00 04/19/17 18:00 04/19/17 18:00 04/19/17 18:00 04/19/17 18:00 Intake and Output: 04/19/17 04/20/17 18:59 06:59 Intake Total 660 Output Total 1600 Balance -940 - Medications Medications: Current Medications Amylase (Pancrease 76729 U-5000 U-98946 U) 1 unit PO ACTID [facility] Last Admin: 04/19/17 17:00 Dose: 1 unit Heparin Sodium (Porcine) (Heparin) 5,000 units SC Q12 [facility] PRN Reason: Protocol Last Admin: 04/19/17 21:09 Dose: 5,000 units Hydromorphone HCl (Dilaudid) 1 mg IM Q6 PR[facility] PRN Reason: Pain, severe (8-10) Last Admin: 04/18/17 11:08 Dose: 1 mg Levetiracetam (Keppra 500mg Ivpb) 500 mg in 100 mls @ 400 mls/hr IV Q12 [facility] Last Admin: 04/19/17 21:09 Dose: 400 mls/hr Vancomycin HCl (Vancomycin 1gm) 1 gm in 250 mls @ 167 mls/hr IVPB Q12H [facility] PRN Reason: Protocol Last Admin: 04/19/17 22:32 Dose: 167 mls/hr Insulin Human Regular (Humulin R Low) 0 units SC Q6H [facility] PRN Reason: Protocol Last Admin: 04/19/17 17:01 Dose: 5 units Pantoprazole Sodium (Protonix Inj) 40 mg IVP DAILY [facility] Last Admin: 04/19/17 11:05 Dose: 40 mg Tramadol HCl (Ultram) 50 mg PO QID PRN PRN Reason: Pain, moderate (4-7) Last Admin: 04/19/17 21:22 Dose: 50 mg - Labs Labs: 04/19/17 06:45 04/19/17 06:45 APTT 40.9 Seconds (25.1-36.5) H 04/17/17 08:00 Attending/Attestation - Attestation I have personally seen and examined this patient.: Yes I have fully participated in the care of the patient.: Yes I have reviewed all pertinent clinical information, including history, physical exam and plan: Yes Notes (Text): This is an addendum to GI progress report dictated by Elisa Campbell APN.The patient was seen and examined earlier. Medical records, lab studies, imagings were reviewed. Last 24 hours events reviewed. Agreed with the above treatment plan as outlined in Elisa Campbell APN's notes the with the addition of the following discussed with the patient's granddaughter was at bedside on examination anicteric abdomen soft no tenderness Patient did not have a follow-up with oncologist, the surgeon in view of this hip fracture and hospitalizations Sepsis The billiary metalic stent appear dislodged Requested abdominal x-ray discussed with Dr. Chicho Trujillo 04/20/17 01:08
--- NOTE | 2017-04-19 14:36 | PN ---
DATE: 04/18/2017 SUBJECTIVE: The patient is a 76-year-old male with a history of pancreatic adenoma. He is 2 months status post left hip fracture with surgical repair. He has a history of diabetes mellitus, coronary artery disease, status post coronary artery bypass graft x3 vessels. He is admitted with a diagnosis of status epilepticus. Apparently he seized while at home 2 times, squad was called, he received a total of 4 mg of Ativan. He was continuing to seize in the van en route to the hospital as well as in the emergency room. CAT scan of the head was performed, which was essentially negative. No seizures were noted. The chest x-ray showed prominent interstitial markings and slight vascular congestion. He did have a chronic right frontal infarct on CAT scan. MRI cannot be performed because of his recent hip surgery. Case was discussed with the family admission and the patient is made DNR/DNI status. During his hospital stay, blood cultures grew Gram positive cocci in clusters; however, the following day, blood cultures were negative x2. He is currently being treated with vancomycin and Zosyn. He underwent HIDA scan, which was negative. When seen today, the patient is sleeping, obtunded; family is at bedside. PHYSICAL EXAMINATION: VITAL SIGNS: He is afebrile. Blood pressure is 144/91, heart rate is 79 beats per minute. LABORATORY DATA: White blood cell count is 8.1, hemoglobin and hematocrit are 9.8 and 31.2 respectively. Sodium is 134, potassium 3.7, blood urea nitrogen 20, creatinine 0.9. ASSESSMENT AND PLAN: At this point, we are continuing the antibiotics, followup chest x-ray showing bibasilar pneumonia, and we will continue to follow the patient closely. Cody Jeff MD
[2017-04-19] MEDS ORDERED: DiphenhydrAMINE 50 mg/ml Inj IM PRN (19:12)
--- NOTE | 2017-04-20 00:32 | PN ---
DATE: 04/19/2017 SUBJECTIVE: The patient was seen early this morning. No fever. No chills. PHYSICAL EXAMINATION VITAL SIGNS: Temperature is 97, blood pressure is 140/90 and respiratory rate of 16. HEENT: Examination of the HEENT is unremarkable. NECK: Supple. LUNGS: Had decreased breath sounds. HEART: Normal S1 and S2. ABDOMEN: Soft. LABORATORY DATA: Reveals the patient's white count is 8.8, hemoglobin of 10 and platelets of 386. Coagulation is noted. Chemistries reveals a BUN of 17, creatinine of 0.7, and alkaline phosphatase is 158. Procalcitonin is less than 0.05. Microbiology reveals Staphylococcus aureus and MRSA. Repeat blood cultures are negative. MRSA reveals MARCIANO of the vancomycin to be 1. ASSESSMENT AND PLAN: This is a 76-year-old male with severe sepsis with methicillin-resistant Staphylococcus aureus bacteremia, with chronic congestive heart failure, with coronary artery disease, pancreatic mass, status post endoscopic ultrasonography and percutaneous drain placement, status post biliary stent placement, diabetic, day number 3 of vancomycin. Repeat blood cultures are negative. The patient did have a transesophageal echocardiography done on 04/11/2016, which was negative. We will continue the vancomycin and discontinued the Zosyn and we are going to check on his echocardiogram. We will check on a repeat culture result. Review of the medications reveals the patient receiving vancomycin at 11:00 a.m. and 2300 hours. We will order vancomycin level for tomorrow at 10:00 a.m. We will follow closely with you. Jose David Gracia MD
[2017-04-20] MEDS: Insulin Reg-LOW-Coverage SC SCH ×3 (04:57→17:08)
[2017-04-20 07:33] LABS: BASO # 0.03 K/mm3 (0.0-2.0); BASO % 0.4 % (0.0-3.0); EOS # 0.4 (0.0-0.7); EOS % 5.1 % (1.5-5.0); GRAN # 6.03 (1.4-6.5); GRAN % 74.3 % (50.0-68.0); HEMOGLOBIN 10.2 g/dL (14.0-18.0); LYMPH # 1.2 (1.2-3.4); LYMPH % 14.4 % (22.0-35.0); MEAN CORPUSCULAR HGB CONC 32.6 g/dl (31.0-37.0); MEAN PLATELET VOLUME 9.7 fl (7.0-11.0); MONO # 0.5 (0.1-0.6); MONO % 5.8 % (1.0-6.0); RBC 3.64 10^6/uL (3.5-6.1); RED CELL DISTRIBUTION WIDTH 14.6 % (11.5-14.5); WHITE BLOOD COUNT 8.1 10^3/ul (4.5-11.0)
[2017-04-20 07:45] LABS: ALB/GLOB RATIO 0.7 (1.1-1.8); ALBUMIN 2.3 g/dL (3.0-4.8); ALT/SGPT 26 U/L (7-56); AST/SGOT 31 U/L (17-59); BLOOD UREA NITROGEN 13 mg/dL (7-21); CALCIUM 8.3 mg/dL (8.4-10.5); GFR AFRICAN-AMERICAN > 60; GFR NON-AFRICAN AMERICAN > 60
--- NOTE | 2017-04-20 08:08 | CP.PCM.PN ---
Subjective - Date & Time of Evaluation Date of Evaluation: 04/20/17 Time of Evaluation: 08:06 - Subjective Subjective: Mr. Ibarra was seen and examined at the bedside. He is alert, oriented. He denies any headache, dizziness, nausea, but states of being carful when swallowing to prevent any aspiration. He is able to raise his bilateral upper extremities, but not lower extremities. not on any SCD. There was no untoward events overnight. Objective - Vital Signs/Intake and Output Vital Signs (last 24 hours): Temp Pulse Resp BP Pulse Ox 98 F 85 20 135/82 96 04/20/17 06:00 04/20/17 06:00 04/20/17 06:00 04/20/17 06:00 04/20/17 06:00 Intake and Output: 04/20/17 04/20/17 06:59 18:59 Intake Total 660 600 Output Total 1600 800 Balance -940 -200 - Medications Medications: Current Medications Amylase (Pancrease 53346 U-5000 U-11555 U) 1 unit PO ACTID [facility] Last Admin: 04/19/17 17:00 Dose: 1 unit Heparin Sodium (Porcine) (Heparin) 5,000 units SC Q12 [facility] PRN Reason: Protocol Last Admin: 04/19/17 21:09 Dose: 5,000 units Levetiracetam (Keppra 500mg Ivpb) 500 mg in 100 mls @ 400 mls/hr IV Q12 [facility] Last Admin: 04/19/17 21:09 Dose: 400 mls/hr Vancomycin HCl (Vancomycin 1gm) 1 gm in 250 mls @ 167 mls/hr IVPB Q12H [facility] PRN Reason: Protocol Last Admin: 04/19/17 22:32 Dose: 167 mls/hr Insulin Human Regular (Humulin R Low) 0 units SC Q6H [facility] PRN Reason: Protocol Last Admin: 04/20/17 04:57 Dose: Not Given Pantoprazole Sodium (Protonix Inj) 40 mg IVP DAILY [facility] Last Admin: 04/19/17 11:05 Dose: 40 mg - Labs Labs: 04/20/17 06:45 04/20/17 06:45 APTT 40.9 Seconds (25.1-36.5) H 04/17/17 08:00 - Constitutional Appears: No Acute Distress - Head Exam Head Exam: NORMAL INSPECTION - Neurological Exam Neurological Exam: Alert, Awake Neuro motor strength exam: Left Upper Extremity: 3, Right Upper Extremity: 3, Left Lower Extremity: 0, Right Lower Extremity: 0 Additional comments: He is able to answer few questions and follow simple commands. Assessment and Plan (1) Seizure Assessment & Plan: Case discussed with Dr. Cody, continue all current medical, occupational, speech therpies. Recommend PT eval and treat. Pending EEG results. Status: Acute
--- NOTE | 2017-04-20 08:12 | PN ---
DATE: 04/19/2017 SUBJECTIVE: The patient was seen this Tuesday, room 378, bed 1 with his family, 2 granddaughters at the bedside. The patient is awake, but a little bit groggy having received some Ativan this morning for reported tremor. In review of the history with the patient's family, they seem to feel this is more of a hypoglycemic episode rather than a true seizure, that his sugar was low in the 30s when he was found with altered mental status at home. They are concerned now that he is a bit groggy and lethargic with Ativan and the dose of Dilaudid given earlier. PHYSICAL EXAMINATION: GENERAL: The patient is awake, but lethargic. Moving all extremities. Reported some leg pain earlier, but no abdominal pain. HEAD AND NECK: Shows temporalis wasting with prolonged expiratory phase of COPD. ABDOMEN: Soft, nontender. EXTREMITIES: Show no edema. He is moving all extremities with no focal motor deficits. IMPRESSION: 1. Initial hypoglycemia. 2. Question of seizure activity. 3. Recent fracture of the hip. 4. Pancreatic mass. 5. Chronic obstructive pulmonary disease. 6. Diabetes. PLAN: We will discontinue narcotic analgesics. At home, the patient is not taking any benzodiazepines. We will leave the Valium as antiseizure medicine per Neurology, but discontinue Ambien, Xanax and tramadol as the patient states he is relatively comfortable and Percocet works the best for his pain. We will follow closely. Rehan Jeff MD
[2017-04-20] MEDS: Amylase/Lipase/Protease 5,000 Units ECC PO SCH ×3 (10:04→17:08)
[2017-04-20] MEDS: levETIRAcetam 500mg IVPB 500 MG/100 ML BAG IV SCH ×2 (10:04→21:37)
--- NOTE | 2017-04-20 12:15 | RAD ---
HISTORY: Check metallic biliary stent COMPARISON: Comparison made with CT scan of the abdomen and pelvis dated 04/18/2017 FINDINGS: BOWEL: Large amount of stool is seen throughout the colon particularly at the rectosigmoid consistent with fecal retention/constipation questionable early fecal impaction. No evidence of obstruction. BONES: Mild multilevel degenerative spondylosis of the lower thoracic and lumbar spine. In situ fixation hardware left femoral neck and proximal femur unchanged. OTHER FINDINGS: None. IMPRESSION: Findings consistent with constipation and possible fecal impaction. No radiopaque -metallic biliary stent seen.
[2017-04-20] MEDS: Vancomycin 1gm in NS 250ml 1 GM/250 ML BAG IVPB SCH ×2 (13:07→22:00)
--- NOTE | 2017-04-20 16:23 | CARD ---
APPROVED REPORT EXAM: Two-dimensional and M-mode echocardiogram with Doppler and color Doppler. INDICATION Infection:Rule out subacute bacterial endocarditis 2D DIMENSIONS Left Atrium (2D)5.3 (1.6-4.0cm)IVSd1.0 (0.7-1.1cm) LVDd5.4 (3.9-5.9cm)PWd1.0 (0.7-1.1cm) LVDs4.8 (2.5-4.0cm)FS (%) 10.6 % LVEF (%)22.9 (>50%) M-Mode DIMENSIONS Aortic Root3.40 (2.2-3.7cm)Aortic Cusp Exc.1.70 (1.5-2.0cm) Aortic Valve AoV Peak Qogudtcd425.0cm/Brady Peak GR.5mmHg Mitral Valve MV E Zzcihxvo037.0cm/sMV A Abtbhmiz74.8cm/sE/A ratio1.2 TDI Lateral E' Peak V9.94cm/sMedial E' Peak V6.92cm/sE/Lateral E'10.2 E/Medial E'14.6 Pulmonary Valve PV Peak Lrzlshlm75.5cm/sPV Peak Grad.1mmHg Tricuspid Valve TR Peak Owcaptdw472qm/sRAP PAKZCAUN53tkFvXY Peak Gr.29mmHg [id number] LEFT VENTRICLE The Left Ventricle is borderline dilated. There is normal left ventricular wall thickness. The systolic function is severely impaired. Sever Septal and Apical hypokinesis Transmitral Doppler flow pattern is Grade II-pseudonormal filling dynamics. No left ventricle thrombus noted on this study. RIGHT VENTRICLE The right ventricle is normal size. There is normal right ventricular wall thickness. The right ventricular systolic function is normal. ATRIA The left atrium is moderately dilated. The right atrium is mildly dilated. AORTIC VALVE The aortic valve is moderately thickened, a vegitation can not be completely ruled out No aortic regurgitation is present. There is no aortic valvular stenosis. MITRAL VALVE The mitral valve is moderately thickened. Mitral regurgitation is moderate to severe. TRICUSPID VALVE There is mild tricuspid regurgitation. There is mild pulmonary hypertension. GREAT VESSELS The aortic root is normal in size. The IVC collapses <50% with inspiration. PERICARDIAL EFFUSION There is a trace circumferential pericardial effusion. <Conclusion> The Left Ventricle is borderline dilated. There is normal left ventricular wall thickness. The systolic function is severely impaired. Sever Septal and Apical hypokinesis Transmitral Doppler flow pattern is Grade II-pseudonormal filling dynamics. The aortic valve is moderately thickened, a vegitation can not be completely ruled out The mitral valve is moderately thickened. Mitral regurgitation is moderate to severe. There is mild tricuspid regurgitation. There is mild pulmonary hypertension.
--- NOTE | 2017-04-20 17:45 | PN ---
DATE: 04/20/2017 SUBJECTIVE: The patient is in bed, in no acute distress, nontoxic. He was seen earlier this morning in room 378, bed 1. PHYSICAL EXAMINATION VITAL SIGNS: Temperature is 98, blood pressure is 130/80, and respiratory rate of 20. HEENT: Unremarkable. NECK: Supple. LUNGS: Decreased breath sounds. HEART: Normal S1 and S2. ABDOMEN: Soft and nontender. LABORATORY DATA: Reveals a white count of 8, hemoglobin of 10, and platelets of 350. Chemistries reveal BUN of 13 and creatinine of 0.7. Urinalysis is noted. Vancomycin trough is 11.9. Microbiology, blood cultures are negative. The repeat notes the initial ones are positive for MRSA. ASSESSMENT AND PLAN: This is a 76-year-old male with severe sepsis with methicillin-resistant Staphylococcus aureus bacteremia with congestive heart failure, coronary artery disease, pancreatic mass, status post endoscopic retrograde cholangiopancreatography and percutaneous drainage placement, status post biliary stent placement and the patient is diabetic and now repeat blood cultures are negative with a vancomycin level of 11.9. Today is day #4 of vancomycin, we need at least 14 to 21 days. The patient had a HIDA scan, which was normal. The source of the methicillin-resistant Staphylococcus aureus bacteremia not entirely clear. We will follow with you. We ordered a sed rate, C-reactive protein, and echo, and we will make further recommendation. The duration of the antibiotic may be prolonged based on the source, currently on 1 gm of vancomycin q.12 hours. May need to increase the vancomycin level to 11.9, we are almost there, although the repeat blood cultures are negative. We will check her on the echo. Dr. Newby's note is reviewed. We will follow with you. Jose David Gracia MD
--- NOTE | 2017-04-21 00:22 | PN ---
DATE: 04/20/2017 SUBJECTIVE: This patient was seen and evaluated earlier today. The patient is not in acute distress. PHYSICAL EXAMINATION GENERAL: Afebrile, blood pressure is 135/82, and respirations are 18. HEENT: Atraumatic. Anicteric. NECK: Supple. HEART: S1 and S2 heard. LUNGS: Bilateral air entry present. EXTREMITIES: No cyanosis and no clubbing. NEUROLOGIC: Alert and oriented. Moves all the extremities. LABORATORY DATA: Hemoglobin of 10.2, hematocrit of 31.3, WBC is 8.1, and platelets 350. Chemistry shows alkaline phosphatase of 140, and albumin of 2.3. KUB x-ray reviewed, large amount of stool present. No metallic stent noticed. IMPRESSION: 1. This is a 76-year-old patient admitted with severe methicillin-resistant Staphylococcus aureus sepsis, history of pancreatic mass, status post biliary metal stent placement, it appears to be dislodged the stent. I could not find even the stent in these abdominal x-rays. It is very unusual for the metal stent to get displaced. I did discuss with Dr. Chicho Trujillo also earlier. The patient did have initially PTC done because of the infiltration of tumor involving the duodenal wall. Subsequently, endoscopic retrograde cholangiopancreatography and stent was placed in the past. 2. History of diabetes mellitus, initial hypoglycemia episode with a change of mental status. 3. Locally advanced pancreatic cancer. 4. History of coronary artery disease. 5. Constipation RECOMMENDATIONS: 1. Continue the antibiotics as per ID. 2. We will start the patient on MiraLax and also enema. 3. We would consider repeating the ERCP and possible stent placement. Thank you very much for allowing us to participate in the care of the patient. Yomaira Bradley MD JOSEF
[2017-04-21] MEDS: Insulin Reg-LOW-Coverage SC SCH ×5 (00:31→22:20)
[2017-04-21 07:25] LABS: BASO # 0.03 K/mm3 (0.0-2.0); BASO % 0.4 % (0.0-3.0); EOS # 0.6 (0.0-0.7); EOS % 6.6 % (1.5-5.0); GRAN # 6.19 (1.4-6.5); GRAN % 73.2 % (50.0-68.0); HEMOGLOBIN 10.9 g/dL (14.0-18.0); LYMPH # 1.1 (1.2-3.4); LYMPH % 13.5 % (22.0-35.0); MEAN CELL VOLUME 87.4 fl (80.0-105.0); MEAN CORPUSCULAR HEMOGLOBIN 28.1 pg (25.0-35.0); MEAN CORPUSCULAR HGB CONC 32.2 g/dl (31.0-37.0); MEAN PLATELET VOLUME 9.8 fl (7.0-11.0); MONO # 0.5 (0.1-0.6); MONO % 6.3 % (1.0-6.0); RBC 3.88 10^6/uL (3.5-6.1); RED CELL DISTRIBUTION WIDTH 14.5 % (11.5-14.5); WHITE BLOOD COUNT 8.5 10^3/ul (4.5-11.0)
[2017-04-21 07:58] LABS: ALB/GLOB RATIO 0.7 (1.1-1.8); ALBUMIN 2.3 g/dL (3.0-4.8); ALT/SGPT 122 U/L (7-56); AST/SGOT 140 U/L (17-59); BLOOD UREA NITROGEN 8 mg/dL (7-21); CALCIUM 8.2 mg/dL (8.4-10.5); GFR AFRICAN-AMERICAN > 60; GFR NON-AFRICAN AMERICAN > 60
[2017-04-21] MEDS: Amylase/Lipase/Protease 5,000 Units ECC PO SCH ×3 (08:05→17:53)
[2017-04-21] MEDS: levETIRAcetam 500mg IVPB 500 MG/100 ML BAG IV SCH (10:09)
[2017-04-21] MEDS: Vancomycin 1gm in NS 250ml 1 GM/250 ML BAG IVPB SCH ×2 (10:10→23:29)
[2017-04-21] MEDS: Oxycodone/Acetaminophen 5/325 mg Tab PO PRN ×2 (11:26→17:57)
--- NOTE | 2017-04-21 11:52 | PN ---
DATE: 04/20/2017 The patient is a 76-year-old male with a history of diabetes mellitus; coronary artery disease, status post coronary artery bypass grafting x3 vessels. He was diagnosed with pancreatic carcinoma approximately 6 to 8 months ago. He fell and fractured his left hip, which was surgically repaired about 2 months ago and is admitted on 04/16/2017 with a diagnosis of status epilepticus. Apparently, the patient had a seizure at home, which was witnessed in the squad car as well as in the emergency room and he received a total of 4 mg of Ativan to calm the seizure. He is being followed by Neurology who has the patient on Keppra. He also grew Gram-positive cocci in clusters on blood culture. He is followed by Infectious Disease and he has been treated with vancomycin and Zosyn. During that hospital stay, he underwent HIDA scan, which was negative. Recent KUB showed fecal impaction. Echocardiogram showed an ejection fraction of 22.9% and could not rule out bouts of vegetations. When seen today, the patient is much more awake than 2 days ago. He answered questions appropriately. He states he is having bowel movements constantly. He denies any pain, shortness of breath. Laboratory studies showed vital signs are stable. His white cell count is 8.1, hemoglobin and hematocrit are 10.2 and 31.3 respectively. Sodium is 132, potassium is 3.9, blood urea nitrogen 13, creatinine is 0.8. We are continuing to follow the patient closely. As per the patient's and family's wishes, he is a DNR/DNI status. We are keeping the patient comfortable. Cody Jeff MD
--- NOTE | 2017-04-21 12:25 | CP.PCM.PN ---
Subjective - Date & Time of Evaluation Date of Evaluation: 04/21/17 Time of Evaluation: 12:21 - Subjective Subjective: Mr. Ibarra was seen and examined at the bedside. He is alert, oriented, denies any headache, dizziness, lightheadedness. He is able to follow simple commands. He states that he has been experiencing back pain, pain medication was given, There was no untoward events overnight. Objective - Vital Signs/Intake and Output Vital Signs (last 24 hours): Temp Pulse Resp BP Pulse Ox 98.3 F 85 20 133/79 97 04/21/17 06:00 04/21/17 06:00 04/21/17 06:00 04/21/17 06:00 04/21/17 06:00 Intake and Output: 04/21/17 04/21/17 06:59 18:59 Intake Total 960 Output Total 3000 Balance -2040 - Medications Medications: Current Medications Amylase (Pancrease 76369 U-5000 U-54977 U) 1 unit PO ACTID [facility] Last Admin: 04/21/17 08:05 Dose: 1 unit Heparin Sodium (Porcine) (Heparin) 5,000 units SC Q12 [facility] PRN Reason: Protocol Last Admin: 04/21/17 10:09 Dose: 5,000 units Vancomycin HCl (Vancomycin 1gm) 1 gm in 250 mls @ 167 mls/hr IVPB Q12H [facility] PRN Reason: Protocol Last Admin: 04/21/17 10:10 Dose: 167 mls/hr Insulin Human Regular (Humulin R Low) 0 units SC Q6H [facility] PRN Reason: Protocol Last Admin: 04/21/17 06:00 Dose: Not Given Levetiracetam (Keppra) 250 mg PO BID [facility] Oxycodone/Acetaminophen (Percocet 5/325 Mg Tab) 1 tab PO Q4H PRN PRN Reason: Pain, moderate (4-7) Stop: 04/24/17 10:39 Last Admin: 04/21/17 11:26 Dose: 1 tab Pantoprazole Sodium (Protonix Inj) 40 mg IVP DAILY [facility] Last Admin: 04/21/17 10:10 Dose: 40 mg Polyethylene Glycol (Miralax) 17 gm PO TID [facility] - Labs Labs: 04/21/17 07:11 04/21/17 07:11 APTT 40.9 Seconds (25.1-36.5) H 04/17/17 08:00 - Constitutional Appears: No Acute Distress - Head Exam Head Exam: NORMAL INSPECTION - Neurological Exam Neurological Exam: Alert, Awake Neuro motor strength exam: Left Upper Extremity: 4, Right Upper Extremity: 4, Left Lower Extremity: 0, Right Lower Extremity: 0 Additional comments: He is able to answer few questions and follow simple instructions. Sensations remains intact. Assessment and Plan (1) Seizure Assessment & Plan: Case discussed with Dr. Cody, continue all current medical, physical, and occupational therapies. There is no new recommendations from neurology. Status: Acute
[2017-04-21] MEDS: POLYETHYLENE GLYCOL 3350 17 GM/Dose PACKET PO SCH ×3 (14:35→18:28)
[2017-04-21] MEDS ORDERED: Amylase/Lipase/Protease 5,000 Units ECC PO SCH (17:40)
--- NOTE | 2017-04-22 01:00 | PN ---
DATE: 04/21/2017 SUBJECTIVE: The patient is in bed. PHYSICAL EXAMINATION: VITAL SIGNS: Temperature is 98, blood pressure is 150/90, respiratory rate of 20, heart rate of 85. HEENT: Unremarkable. NECK: Supple. LUNGS: Decreased breath sounds. HEART: Normal S1, S2. ABDOMEN: Soft, nontender. LABORATORY EXAMINATION: Reveals a white count of 8.5, hemoglobin of 10, platelets of 365, BUN of 8, creatinine of 0.6. LFTs are noted. Urinalysis is noted. Vancomycin trough is 11.9. The patient has MRSA bacteremia. The repeat blood cultures have no growth. ASSESSMENT AND PLAN: This is a 76-year-old male with severe sepsis and methicillin-resistant Staphylococcus aureus bacteremia, congestive heart failure, coronary artery disease, pancreatic mass, status post ERCP, percutaneous drainage and diabetic, today is day #5 of vancomycin. We will treat 14 to 21 days. Negative HIDA scan. Source of the methicillin-resistant Staphylococcus aureus bacteremia is not entirely clear, and with a sed rate of 50 and a C-reactive protein of greater than 15. We will follow. Jose David Gracia MD
--- NOTE | 2017-04-22 01:43 | PN ---
DATE: 04/21/2017 SUBJECTIVE: This patient was seen and evaluated earlier today. Discussed with Dr. Rehan Jeff. The patient appears not in acute distress. PHYSICAL EXAMINATION: VITAL SIGNS: Temperature is 98.1, blood pressure 153/94, pulse 85, respirations 20, O2 saturation 97%. HEENT: Atraumatic. Anicteric. NECK: Supple. HEART: S1 and S2 heard. LUNGS: Bilateral air entry present, slightly reduced at the base. ABDOMEN: Soft. No tenderness. EXTREMITIES: No cyanosis. No clubbing. LABORATORY DATA: Hemoglobin 10.9, hematocrit 33.9, WBC is 8.5, platelets 365. Chemistry shows alkaline phosphatase elevated to 665, AST 140, ALT 122, BUN 8, creatinine 0.6. ASSESSMENT AND PLAN: This is a 76-year-old patient with history of coronary artery disease, prw-gfbgvjv-iklnrihkq diabetes mellitus, pancreatic mass, status post PTC followed by status postendoscopic retrograde cholangiopancreatography, biliary stent. Admitted with methicillin-resistant Staphylococcus aureus bacteremia. The patient's liver function tests were okay. Total bilirubin was normal, but only elevated alkaline phosphatase that is increased in the liver function tests noticed today. Repeat abdominal x-ray did not reveal any stent. It is very unusual for the metal stent to be displaced, appears to be not in place. The reasonable consideration is to do a repeat ERCP and placement of temporary plastic stent initially. The patient is scheduled for the procedure tomorrow. We will also discuss with the patient's family. Presently, the patient is DNR. Thank you very much for allowing us to participate in the care of the patient. Yomaira Bradley MD JOSEF
[2017-04-22 07:11] LABS: BASO # 0.04 K/mm3 (0.0-2.0); BASO % 0.4 % (0.0-3.0); EOS # 0.8 (0.0-0.7); EOS % 7.4 % (1.5-5.0); GRAN # 7.66 (1.4-6.5); GRAN % 72.7 % (50.0-68.0); LYMPH # 1.3 (1.2-3.4); LYMPH % 12.6 % (22.0-35.0); MEAN CELL VOLUME 88.3 fl (80.0-105.0); MEAN CORPUSCULAR HEMOGLOBIN 28.6 pg (25.0-35.0); MEAN CORPUSCULAR HGB CONC 32.4 g/dl (31.0-37.0); MEAN PLATELET VOLUME 9.6 fl (7.0-11.0); MONO # 0.7 (0.1-0.6); MONO % 6.9 % (1.0-6.0); RBC 3.84 10^6/uL (3.5-6.1); RED CELL DISTRIBUTION WIDTH 14.6 % (11.5-14.5); WHITE BLOOD COUNT 10.5 10^3/ul (4.5-11.0)
[2017-04-22 07:16] LABS: INR 1.16 (0.93-1.08); PARTIAL THROMBOPLASTIN TIME 35.8 Seconds (25.1-36.5); PROTHROMBIN TIME 13.4 SECONDS (9.4-12.5)
[2017-04-22 07:57] LABS: ALB/GLOB RATIO 0.8 (1.1-1.8); ALBUMIN 2.5 g/dL (3.0-4.8); ALT/SGPT 90 U/L (7-56); AST/SGOT 74 U/L (17-59); BLOOD UREA NITROGEN 10 mg/dL (7-21); CALCIUM 8.6 mg/dL (8.4-10.5); GFR AFRICAN-AMERICAN > 60; GFR NON-AFRICAN AMERICAN > 60
[2017-04-22] MEDS: Insulin Reg-LOW-Coverage SC SCH ×2 (08:17→13:16)
--- NOTE | 2017-04-22 08:25 | CP.PCM.PN ---
Subjective - Date & Time of Evaluation Date of Evaluation: 04/22/17 Time of Evaluation: 08:22 - Subjective Subjective: Mr. Ibarra was seen and examined at the bedside. He is alert, oriented. He is able to answer questions and follow commands. He remains on contact isolation. There was no untoward events overnight. Objective - Vital Signs/Intake and Output Vital Signs (last 24 hours): Temp Pulse Resp BP Pulse Ox 98.6 F 82 20 136/87 98 04/22/17 07:30 04/22/17 07:30 04/22/17 07:30 04/22/17 07:30 04/22/17 07:30 Intake and Output: 04/22/17 04/22/17 06:59 18:59 Intake Total 960 Output Total 1300 Balance -340 - Medications Medications: Current Medications Amylase (Pancrease 42029 U-5000 U-42180 U) 5,000 unit PO ACTID [facility] Last Admin: 04/21/17 17:53 Dose: 5,000 unit Heparin Sodium (Porcine) (Heparin) 5,000 units SC Q12 [facility] PRN Reason: Protocol Last Admin: 04/21/17 21:42 Dose: 5,000 units Vancomycin HCl (Vancomycin 1gm) 1 gm in 250 mls @ 167 mls/hr IVPB Q12H [facility] PRN Reason: Protocol Last Admin: 04/21/17 23:29 Dose: 167 mls/hr Insulin Human Regular (Humulin R Low) 0 units SC Q6H [facility] PRN Reason: Protocol Last Admin: 04/21/17 22:20 Dose: 2 units Levetiracetam (Keppra) 250 mg PO BID [facility] Last Admin: 04/21/17 17:47 Dose: 250 mg Oxycodone/Acetaminophen (Percocet 5/325 Mg Tab) 1 tab PO Q4H PRN PRN Reason: Pain, moderate (4-7) Stop: 04/24/17 10:39 Last Admin: 04/21/17 17:57 Dose: 1 tab Pantoprazole Sodium (Protonix Inj) 40 mg IVP DAILY [facility] Last Admin: 04/21/17 10:10 Dose: 40 mg Polyethylene Glycol (Miralax) 17 gm PO TID [facility] Last Admin: 04/21/17 18:28 Dose: Not Given - Labs Labs: 04/22/17 06:00 04/22/17 06:00 PT 13.4 SECONDS (9.4-12.5) H 04/22/17 06:00 INR 1.16 (0.93-1.08) H 04/22/17 06:00 APTT 35.8 Seconds (25.1-36.5) 04/22/17 06:00 - Constitutional Appears: No Acute Distress - Head Exam Head Exam: NORMAL INSPECTION - Neurological Exam Neurological Exam: Alert, Awake Neuro motor strength exam: Left Upper Extremity: 4, Right Upper Extremity: 4, Left Lower Extremity: 2/1, Right Lower Extremity: 2/1 Additional comments: Neurological unchanged from previous examination. Assessment and Plan (1) Seizure Assessment & Plan: Case discussed with Dr. Cody, continue all current medical regimen, physical and occupational therapies. There is no new recommendations from neurology. Status: Acute
[2017-04-22] MEDS ORDERED: Lactated Ringer's 1,000 ML IV SCH (09:15)
[2017-04-22] MEDS: Oxycodone/Acetaminophen 5/325 mg Tab PO PRN ×2 (09:43→23:30)
[2017-04-22] MEDS: Amylase/Lipase/Protease 5,000 Units ECC PO SCH ×2 (09:54→13:18)
[2017-04-22] MEDS ORDERED: Sodium Chloride 0.45% 1,000 ML IV SCH (10:00)
[2017-04-22] MEDS: Vancomycin 1gm in NS 250ml 1 GM/250 ML BAG IVPB SCH ×2 (11:03→22:00)
--- NOTE | 2017-04-22 11:27 | CON ---
DATE: 04/22/2017 REASON FOR CONSULTATION: Preoperative evaluation for replacement of biliary stent. HISTORY OF PRESENT ILLNESS: This is a 76-year-old male known to me from prior admissions, who was admitted on 04/16/2017 with a grand mal seizure at home. He was hypoglycemic and hypothermic. He has been evaluated in the hospital since then. He has been placed on Keppra. He has positive blood cultures. He has undergone a GI workup. A previously placed metallic biliary stent has apparently dislodged. Dr. Bradley is planning to replace it with a plastic stent later today. Cardiac risk assessment is requested. He is weak. He is able to answer questions. There is no chest pain or shortness of breath, but he is very weak. There is no edema. He did not complain of abdominal pain. PAST MEDICAL HISTORY: Notable for pancreatic cancer, locally invasive. He has had a left hip fracture with repair. He has diabetes, coronary artery disease, remote coronary bypass surgery, pvpwixpb-gq-qnjwjr and now recently severe LV dysfunction on echocardiography. He also has moderate mitral regurgitation,tricuspid regurgitation, and pulmonary hypertension. There is a history of stroke, right bundle-branch block, left anterior hemiblock. He is a former smoker. CURRENT MEDICATIONS: Include subcu heparin, Keppra, Pancrease, Percocet, Protonix, Tylenol, and vancomycin. He gets IV fluids. ALLERGIES: THERE ARE NO KNOWN MEDICATION ALLERGIES. SOCIAL HISTORY: He is a former smoker. He lives at home. He drinks wine daily. REVIEW OF SYSTEMS: A 10-point review of systems is otherwise unremarkable. PHYSICAL EXAMINATION: GENERAL: He is an elderly male, in no acute distress, lying in bed on 5R. VITAL SIGNS: His pulse is 82. He is afebrile. Blood pressure 136/87, respirations 20, O2 sat 98% on room air. HEENT: Reveals no neck vein distention, thyromegaly, or carotid bruits. Mucous membranes moist. Conjunctivae pink. NECK: Supple. LUNGS: Nance are clear. HEART: Reveals normal first and second heart sounds. The PMI is displaced. There is a systolic murmur along the left sternal border. ABDOMEN: Soft. Bowel sounds are present. No mass, organomegaly, tenderness, rebound, or guarding. EXTREMITIES: Reveals no cyanosis, clubbing, or edema. NEUROLOGIC: He is weak, alert. PSYCHIATRIC: Normal as to mood and affect. SKIN: Warm and dry. No rash or cellulitis. LABORATORY AND IMAGING: An echocardiogram on the 04/19/2017 revealed severe LV dysfunction, gycockzp-bg-yrzslr MR, mild TR, and mild pulmonary hypertension. The aortic valve is thickened. Vegetation cannot be ruled out. A chest x-ray on 04/16/2017 revealed slight vascular congestion. An EKG on 04/16/2017 revealed a limited EKG. There appears to be sinus rhythm to sinus tachycardia,right bundle-branch block, left anterior hemiblock, ST-T wave changes. Abdominopelvic CT is noted. There is dilatation of the common bile duct with intrahepatic ductal dilatation. A biliary stent is not seen. CT scan of the head revealed no acute intracranial findings. A HIDA scan demonstrated normal hepatobiliary scan, cystic duct is patent. White count is normal, hemoglobin 11.0, hematocrit 33.9, platelet count is normal. PT, INR, and PTT unremarkable. Electrolytes unremarkable. BUN 10, creatinine 0.7, blood sugar in the 178 to 300 range. LFTs are elevated. IMPRESSION: Jemal Ibarra is a 76-year-old man with advanced pancreatic cancer. Replacement of a biliary stent is planned for later today. He has known coronary artery disease with remote coronary bypass surgery, and severe left ventricular dysfunction with valvular heart disease as described in the echocardiogram report. He has positive blood cultures. He presented with grand mal seizure, hypoglycemia, and hypothermia. PLAN: He should be considered a kxxygdek-wp-jpkh risk for ERCP with biliary stent placement because of his cardiac status, debility, and multiple medical problems. I will discuss the case further with you. Barry Valenzuela MD JOSE[facility]
[2017-04-22] MEDS: POLYETHYLENE GLYCOL 3350 17 GM/Dose PACKET PO SCH (13:19)
[2017-04-22] MEDS ORDERED: Rocuronium 10 mg/ml (5 ml) ONE (17:21)
[2017-04-22] MEDS ORDERED: Etomidate 20 mg/10ml Inj IV ONE (17:21)
[2017-04-22] MEDS ORDERED: Succinylcholine 200 mg/10 ml Inj IV ONE (17:21)
[2017-04-22] MEDS ORDERED: Midazolam 2 MG/2 ML VIAL ONE (17:22)
[2017-04-22] MEDS ORDERED: Indomethacin 50 MG Suppository PR ONE (17:23)
[2017-04-22] MEDS ORDERED: Iohexol 240 (50 ml) ONE (17:24)
[2017-04-22] MEDS ORDERED: Phenylephrine 10 mg/ml Inj ONE (17:31)
[2017-04-22] MEDS ORDERED: ePHEDrine 50 mg/ml Inj ONE (17:33)
--- NOTE | 2017-04-22 17:55 | CP.PCM.PN ---
Subjective - Date & Time of Evaluation Date of Evaluation: 04/22/17 Time of Evaluation: 12:35 - Subjective Subjective: Comfortable in bed, no fevers overnight, not in distress, no abdominal pain, for ERCP. Objective - Vital Signs/Intake and Output Vital Signs (last 24 hours): Temp Pulse Resp BP Pulse Ox 98.6 F 82 20 136/87 98 04/22/17 07:30 04/22/17 07:30 04/22/17 07:30 04/22/17 07:30 04/22/17 07:30 Intake and Output: 04/22/17 04/22/17 06:59 18:59 Intake Total 960 Output Total 1300 Balance -340 - Medications Medications: Current Medications Amylase (Pancrease 44234 U-5000 U-00304 U) 5,000 unit PO ACTID [facility] Last Admin: 04/22/17 09:54 Dose: 5,000 unit Heparin Sodium (Porcine) (Heparin) 5,000 units SC Q12 [facility] PRN Reason: Protocol Last Admin: 04/22/17 08:18 Dose: 5,000 units Vancomycin HCl (Vancomycin 1gm) 1 gm in 250 mls @ 167 mls/hr IVPB Q12H [facility] PRN Reason: Protocol Last Admin: 04/21/17 23:29 Dose: 167 mls/hr Lactated Ringer's (Lactated Ringer's) 1,000 mls @ 75 mls/hr IV .[id number] [facility] Stop: 04/22/17 19:16 Last Admin: 04/22/17 09:55 Dose: 75 mls/hr Insulin Human Regular (Humulin R Low) 0 units SC Q6H [facility] PRN Reason: Protocol Last Admin: 04/22/17 08:17 Dose: 2 units Levetiracetam (Keppra) 250 mg PO BID [facility] Last Admin: 04/22/17 09:54 Dose: 250 mg Oxycodone/Acetaminophen (Percocet 5/325 Mg Tab) 1 tab PO Q4H PRN PRN Reason: Pain, moderate (4-7) Stop: 04/24/17 10:39 Last Admin: 04/22/17 09:43 Dose: 1 tab Pantoprazole Sodium (Protonix Inj) 40 mg IVP DAILY [facility] Last Admin: 04/22/17 09:42 Dose: 40 mg Polyethylene Glycol (Miralax) 17 gm PO TID [facility] Last Admin: 04/21/17 18:28 Dose: Not Given - Labs Labs: 04/22/17 06:00 04/22/17 06:00 PT 13.4 SECONDS (9.4-12.5) H 04/22/17 06:00 INR 1.16 (0.93-1.08) H 04/22/17 06:00 APTT 35.8 Seconds (25.1-36.5) 04/22/17 06:00 - Constitutional Appears: Chronically Ill - Head Exam Head Exam: NORMAL INSPECTION - ENT Exam ENT Exam: Mucous Membranes Moist - Neck Exam Neck Exam: absent: Meningismus - Respiratory Exam Respiratory Exam: Decreased Breath Sounds - Cardiovascular Exam Cardiovascular Exam: +S1, +S2 - GI/Abdominal Exam GI & Abdominal Exam: Soft. absent: Tenderness Assessment and Plan - Assessment and Plan (Free Text) Plan: Assessment severe sepsis due to MRSA bacteremia R/O biliary stent infection history of severe sepsis due to methicillin-resistant Staph aureus bacteremia, R /O due to bilateral lower extremity cellulitis R/O biliary tree infection chronic CHF in this patient with CAD pancreatic head mass, S/P EUS and percutaneous drain placement S/P biliary stent placement DM recent left hip fracture S/P surgery Plan continue Vancomycin day 6 and complete at least 14-21 days of therapy; KIKE done 03/11/2017 was negative for ERCP today overall prognosis is poor
[2017-04-22] MEDS ORDERED: Glycopyrrolate 0.2 mg/ml (2ml vial) ONE (18:26)
[2017-04-22] MEDS ORDERED: Lidocaine 2% Inj (20ml) ONE (18:41)
[2017-04-22] MEDS ORDERED: HYDROmorphone 0.5 mg/0.5 ml ISec IVP PRN (18:52)
[2017-04-23 07:01] LABS: BASO # 0.05 K/mm3 (0.0-2.0); BASO % 0.4 % (0.0-3.0); EOS # 0.8 (0.0-0.7); EOS % 6.8 % (1.5-5.0); GRAN # 8.84 (1.4-6.5); GRAN % 74.2 % (50.0-68.0); HEMOGLOBIN 10.5 g/dL (14.0-18.0); LYMPH # 1.5 (1.2-3.4); LYMPH % 12.8 % (22.0-35.0); MEAN CELL VOLUME 87.2 fl (80.0-105.0); MEAN CORPUSCULAR HEMOGLOBIN 27.4 pg (25.0-35.0); MEAN CORPUSCULAR HGB CONC 31.4 g/dl (31.0-37.0); MEAN PLATELET VOLUME 10.3 fl (7.0-11.0); MONO # 0.7 (0.1-0.6); MONO % 5.8 % (1.0-6.0); RBC 3.83 10^6/uL (3.5-6.1); RED CELL DISTRIBUTION WIDTH 14.7 % (11.5-14.5); WHITE BLOOD COUNT 11.9 10^3/ul (4.5-11.0)
[2017-04-23 07:28] LABS: ALB/GLOB RATIO 0.8 (1.1-1.8); ALBUMIN 2.5 g/dL (3.0-4.8); ALT/SGPT 89 U/L (7-56); AST/SGOT 74 U/L (17-59); BLOOD UREA NITROGEN 11 mg/dL (7-21); CALCIUM 8.6 mg/dL (8.4-10.5); GFR AFRICAN-AMERICAN > 60; GFR NON-AFRICAN AMERICAN > 60
--- NOTE | 2017-04-23 08:46 | PN ---
DATE: 04/21/2017 SUBJECTIVE: The patient is on the third floor, in room 378, bed 1, this morning, comfortable, in no acute distress. Clinical evidence at this point, more in the correction of hypoglycemic episode with tremor or seizure-like activity rather than true epilepsy or seizure disorder. ASSESSMENT AND PLAN: Case was discussed at length with Dr. Bradley. The patient is to be scheduled for endoscopic retrograde cholangio-pancreatography on Tuesday, and he is doing better with low doses of medications, sedation, analgesics that have been discontinued since I last saw him on Tuesday. We will continue to follow. Rehan Jeff MD
[2017-04-23] MEDS: Insulin Reg-LOW-Coverage SC SCH ×5 (08:47→21:40)
--- NOTE | 2017-04-23 09:08 | PN ---
DATE: 04/22/2017 SUBJECTIVE: The patient was seen this Tuesday morning in room 572, bed 1, lying in bed in preparation for ERCP later today. He is awake, alert, and clear. Vital signs are unremarkable. He is rather comfortable. PHYSICAL EXAMINATION: LUNGS: Show good aeration in right and left. EXTREMITIES: Thin. No edema. ASSESSMENT AND PLAN: Endoscopic retrograde cholangio-pancreatography was performed later in the day. I spoke with Dr. Bradley afterwards. The procedure was done but unfortunately the stent could not be placed. The do-not- resuscitate order was temporarily lifted during the procedure, and per Dr. Bradley's conversation, and this order will be reinstated afterwards. The tumor size has increased dramatically as of late. I have also concerned that his ejection fraction is markedly low, making surgery a less likely option for his pancreatic cancer with the [id number] in effect. We will follow clinically, and discuss hospice and comfort measures in the near future. Rehan Jeff MD cc: JOSEF
[2017-04-23] MEDS: POLYETHYLENE GLYCOL 3350 17 GM/Dose PACKET PO SCH ×3 (09:10→17:20)
[2017-04-23] MEDS: Amylase/Lipase/Protease 5,000 Units ECC PO SCH ×3 (09:10→17:25)
--- NOTE | 2017-04-23 12:01 | PN ---
DATE: 04/23/2017 SUBJECTIVE: The patient is seen lying in bed on 5-R. He underwent ERCP yesterday. This was unsuccessful due to the presence of a large duodenal mass. Percutaneous biliary drainage has been recommended. He denies any chest pain or dyspnea. CURRENT MEDICATIONS: Include subcutaneous heparin, insulin coverage, Keppra 250 mg b.i.d., MiraLax, Pancrease, Percocet, Protonix, and vancomycin. PHYSICAL EXAMINATION: GENERAL: He is a chronically ill-appearing elderly man. VITAL SIGNS: His blood pressure is 136/86, with a pulse of 80 and respirations of 16. He is afebrile. HEENT: No JVD. CHEST: Bilateral scattered rhonchi noted. HEART: PMI displaced laterally, soft tones present. Systolic murmur is present in the lower left sternal border and apex. ABDOMEN: Soft with mild right upper quadrant tenderness. Bowel sounds present. EXTREMITIES: No edema. DIAGNOSTIC DATA: Potassium is 3.9, BUN and creatinine of 11 and 0.8. White count 11.9, hemoglobin and hematocrit 10.5 and 33.4, with a platelet count of 455,000. IMPRESSION: 1. Pancreatic cancer with large mass in the region of duodenum. 2. Coronary artery disease, status post remote bypass surgery. 3. Severe left ventricular systolic dysfunction. 4. Moderate mitral and tricuspid regurgitation. 5. Recent onset seizures. RECOMMENDATIONS: Continue conservative cardiac management as advised at this time. He is currently off all cardiac medications. Resumption of a low-dose beta-robert therapy and an KELLI inhibitor can be entertained if his blood pressure allows. His overall prognosis is obviously very poor. Comfort care should be planned. Jose Enrique Murillo MD
[2017-04-23] MEDS: Vancomycin 1gm in NS 250ml 1 GM/250 ML BAG IVPB SCH ×2 (15:30→23:15)
[2017-04-23] MEDS: Oxycodone/Acetaminophen 5/325 mg Tab PO PRN (17:42)
--- NOTE | 2017-04-23 21:33 | PN ---
DATE: SUBJECTIVE: This patient was seen and evaluated earlier today. The patient is comfortable, not in distress. PHYSICAL EXAMINATION: VITAL SIGNS: Temperature is 98, pulse 73, blood pressure 141/83, respirations 18, O2 saturation 98%. HEENT: Atraumatic, anicteric. NECK: Supple. HEART: S1, S2. LUNGS: Bilateral air entry present. ABDOMEN: Soft. No tenderness. EXTREMITIES: No cyanosis, no clubbing, no edema. LABORATORY DATA: Hemoglobin 10.5, hematocrit 33.4, WBC 11.9, platelets 455. Chemistries, LFTs, AST is 74, ALT is 89, alkaline phosphatase is 88. IMPRESSION: This is a 76-year-old patient with locally advanced pancreatic cancer, admitted with a sepsis, had a history of metallic stent placement before which fell off, could not locate it, that are unusual. The patient had an attempted ERCP yesterday and the tumor appeared to be larger in size. artifacts could not be identified. Selective cannulation of the biliary tree could not be achieved. I did speak with Dr. Chicho Trujillo subsequently. Plan is to schedule for a PTCA in a.m. on Tuesday, and possible internal/external stent placement. I will discuss with Dr. Rehan Jeff again regarding the clarification of the procedure. Thank you very much for allowing us to participate in the care of the patient. Yomaira Bradley MD
--- NOTE | 2017-04-24 01:47 | PN ---
DATE: 04/23/2017 SUBJECTIVE: The patient is in bed, in no acute distress. PHYSICAL EXAMINATION: VITAL SIGNS: Temperature is 98, blood pressure is 140/80, respiratory rate of 18. HEENT: Unremarkable. NECK: Supple. LUNGS: Decreased breath sounds. HEART: Normal S1 and S2. ABDOMEN: Soft and nontender. LABORATORY EXAMINATION: Reveals a white count of 11,900. BUN 11, creatinine of 0.8. Microbiology reveals the blood cultures are negative repeat once, initial one showed MRSA. ASSESSMENT AND PLAN: This is a 76-year-old male with severe sepsis secondary to methicillin-resistant Staphylococcus aureus bacteremia, must rule out biliary stent infection, history of severe sepsis with methicillin-resistant Staphylococcus aureus bacteremia in the past with chronic congestive heart failure, currently on vancomycin day #7. He would complete at least 14 to 21 days. time the blood cultures are negative. We will follow closely with you. Jose David Gracia MD
[2017-04-24] MEDS: Oxycodone/Acetaminophen 5/325 mg Tab PO PRN ×2 (06:05→17:18)
[2017-04-24 06:23] LABS: BASO # 0.04 K/mm3 (0.0-2.0); BASO % 0.4 % (0.0-3.0); EOS # 0.8 (0.0-0.7); EOS % 7.2 % (1.5-5.0); GRAN # 8.53 (1.4-6.5); GRAN % 75.7 % (50.0-68.0); HEMOGLOBIN 9.7 g/dL (14.0-18.0); LYMPH # 1.3 (1.2-3.4); LYMPH % 11.6 % (22.0-35.0); MEAN CORPUSCULAR HEMOGLOBIN 27.8 pg (25.0-35.0); MEAN CORPUSCULAR HGB CONC 32.3 g/dl (31.0-37.0); MEAN PLATELET VOLUME 9.7 fl (7.0-11.0); MONO # 0.6 (0.1-0.6); MONO % 5.1 % (1.0-6.0); RBC 3.49 10^6/uL (3.5-6.1); RED CELL DISTRIBUTION WIDTH 14.8 % (11.5-14.5); WHITE BLOOD COUNT 11.3 10^3/ul (4.5-11.0)
[2017-04-24 06:35] LABS: ALB/GLOB RATIO 0.7 (1.1-1.8); ALBUMIN 2.4 g/dL (3.0-4.8); ALT/SGPT 168 U/L (7-56); AST/SGOT 174 U/L (17-59); BLOOD UREA NITROGEN 10 mg/dL (7-21); CALCIUM 8.5 mg/dL (8.4-10.5); GFR AFRICAN-AMERICAN > 60; GFR NON-AFRICAN AMERICAN > 60
[2017-04-24] MEDS: Amylase/Lipase/Protease 5,000 Units ECC PO SCH ×3 (07:36→17:09)
[2017-04-24] MEDS: Insulin Reg-LOW-Coverage SC SCH ×4 (08:37→22:26)
--- NOTE | 2017-04-24 10:46 | PN ---
DATE: 04/23/2017 SUBJECTIVE: The patient was seen this Tuesday morning in room 572, bed 1. He is comfortable, in no acute distress. Later on the day, I have discussed the case with Dr. Bradley who performed ERCP. Because of the increasing tumor size,stent could not be placed, and therefore, the patient will be evaluated by interventional radiologist, Dr. Chicho Trujillo, for percutaneous drainage of biliary tree. In meanwhile, per family and the patient conversation and request, a do not resuscitate order has been reinstated in the chart. Rehan Jeff MD MTDDani
[2017-04-24] MEDS: POLYETHYLENE GLYCOL 3350 17 GM/Dose PACKET PO SCH ×3 (11:36→17:09)
--- NOTE | 2017-04-24 18:40 | PN ---
DATE: 04/24/2017 SUBJECTIVE: The patient is in bed, in no acute distress, nontoxic. PHYSICAL EXAMINATION: VITAL SIGNS: The patient's temperature is 98, blood pressure is 140/80, respiratory of 18, and heart rate of 73. HEENT: Unremarkable. NECK: Supple. LUNGS: Have decreased breath sounds. HEART: Normal S1, S2. ABDOMEN: Soft, nontender. LABORATORY DATA: Reveals a white count of 11,000 and hemoglobin of 9. Chemistries reveals a BUN of 10, creatinine of 0.7, alk phos is 895. Urinalysis is noted. Vancomycin trough level of 18.2 from this morning is noted. Microbiology reveals MRSA bacteremia. Review of orders reveals the patient to be on vancomycin with a creatinine 0.7. LFTs are noted. ASSESSMENT AND PLAN: This is a 76-year-old male with severe sepsis secondary to methicillin-resistant Staphylococcus aureus bacteremia, must rule out biliary stent infection in the patient with severe sepsis and chronic congestive heart failure. Today is the #8 of vancomycin, would complete 14 to 21 days with CBC sed rate, C-reactive protein, and vancomycin trough level. This morning, trough level is 18.4 which is adequate. We will continue follow with you. Jose David Gracia MD
--- NOTE | 2017-04-24 21:30 | PN ---
DATE: 04/24/2017 SUBJECTIVE: This patient was seen and evaluated earlier today. Appears more comfortable. PHYSICAL EXAMINATION: VITAL SIGNS: Temperature 98.5, pulse 85, blood pressure 129/78, respirations 20, O2 saturations 97%. HEENT: Atraumatic. Anicteric. NECK: Supple. HEART: S1 and S2 heard. LUNGS: Bilateral air entry present slightly reduced at the bases. ABDOMEN: Soft. There is no tenderness. EXTREMITIES: No cyanosis. No clubbing. LABORATORY DATA: Hemoglobin 9.7, hematocrit 30, WBC is 11.3, platelets 399. LFTs shows AST 174, ALT 168, alkaline phosphatase showing upward trend at 895, total bilirubin 0.7. IMPRESSION: This is a 76-year-old patient with locally advanced pancreatic cancer, had an attempted endoscopic retrograde cholangiopancreatography. Biliary stent could not be placed tumor. Local infiltration of the tumor appears to be larger now, there is no ampulla noticed. Could not be identified. The patient is admitted with methicillin-resistant Staphylococcus aureus bacteremia. The patient is on IV antibiotics. The patient was recommended antibiotics. ID has recommended 14 to 21 days of IV antibiotics. The patient is scheduled for PTC and stent placement and a drainage tube placement tomorrow by Dr. Chicho Trujillo. Thank you very much for allowing us to participate in the care of the patient. Yomaira Bradley MD
[2017-04-24] MEDS: Vancomycin 1gm in NS 250ml 1 GM/250 ML BAG IVPB SCH (22:28)
--- NOTE | 2017-04-24 22:44 | PN ---
DATE: 04/24/2017 Patient was seen this Tuesday morning in room 572, bed 1. I explained to the patient the problems with the ERCP and stent could not be placed because of increasing tumor size and will be reevaluated by Dr. Chicho Trujillo for possible interventional radiology stenting tomorrow. I also spoke with patient's daughter later in the day, I heard the patient was upset to be wearing a do not resuscitate bracelet. The daughter is understanding that he is in agreement with a do not resuscitate but did not want to wear the bracelet as a reminder of his condition. She and her brother are both in agreement with the DNR as she believes her father is also. Therefore, we will keep the DNR in effect and talk to the patient about wrist band. In the meantime, we will get the out of bed to chair, had some physical therapy and follow with GI. Rehan Jeff MD MTDD
[2017-04-25 07:07] LABS: BASO # 0.04 K/mm3 (0.0-2.0); BASO % 0.4 % (0.0-3.0); EOS # 0.6 (0.0-0.7); EOS % 6.3 % (1.5-5.0); GRAN # 7.83 (1.4-6.5); GRAN % 76.5 % (50.0-68.0); INR 1.16 (0.93-1.08); LYMPH # 1.1 (1.2-3.4); LYMPH % 10.9 % (22.0-35.0); MEAN CELL VOLUME 86.5 fl (80.0-105.0); MEAN CORPUSCULAR HEMOGLOBIN 27.5 pg (25.0-35.0); MEAN CORPUSCULAR HGB CONC 31.8 g/dl (31.0-37.0); MEAN PLATELET VOLUME 9.9 fl (7.0-11.0); MONO # 0.6 (0.1-0.6); MONO % 5.9 % (1.0-6.0); PARTIAL THROMBOPLASTIN TIME 35.8 Seconds (25.1-36.5); PROTHROMBIN TIME 13.4 SECONDS (9.4-12.5); RBC 3.63 10^6/uL (3.5-6.1); WHITE BLOOD COUNT 10.2 10^3/ul (4.5-11.0)
--- NOTE | 2017-04-25 07:27 | CP.PCM.PN ---
Subjective - Date & Time of Evaluation Date of Evaluation: 04/25/17 Time of Evaluation: 07:24 - Subjective Subjective: Mr. Ibarra was seen and examined at the bedside. He is alert, oriented with episode of forgetfulness. He is able to answer questions appropriately and follow simple commands. He denies any headache, seizure-like activity, blurred vision, diplopia, nausea, or vomiting. There was no untoward events overnight. Objective - Vital Signs/Intake and Output Vital Signs (last 24 hours): Temp Pulse Resp BP Pulse Ox 97.7 F 76 20 138/84 100 04/24/17 16:00 04/24/17 16:00 04/24/17 16:00 04/24/17 16:00 04/24/17 16:00 Intake and Output: 04/25/17 04/25/17 06:59 18:59 Intake Total 1420 Output Total 900 Balance 520 - Medications Medications: Current Medications Acetaminophen (Tylenol 325mg Tab) 650 mg PO Q4H PRN PRN Reason: Pain, Mild (1-3) Amylase (Pancrease 20575 U-5000 U-32237 U) 5,000 unit PO ACTID [facility] Last Admin: 04/24/17 17:09 Dose: 5,000 unit Vancomycin HCl (Vancomycin 1gm) 1 gm in 250 mls @ 167 mls/hr IVPB Q12H [facility] PRN Reason: Protocol Last Admin: 04/24/17 22:28 Dose: 167 mls/hr Insulin Human Regular (Humulin R Low) 0 units SC ACHS [facility] PRN Reason: Protocol Last Admin: 04/24/17 22:26 Dose: Not Given Levetiracetam (Keppra) 250 mg PO BID [facility] Last Admin: 04/24/17 17:09 Dose: 250 mg Oxycodone/Acetaminophen (Percocet 5/325 Mg Tab) 1 tab PO Q4H PRN PRN Reason: Pain, moderate (4-7) Stop: 04/27/17 16:59 Last Admin: 04/24/17 17:18 Dose: 1 tab Pantoprazole Sodium (Protonix Inj) 40 mg IVP DAILY [facility] Last Admin: 04/24/17 11:04 Dose: 40 mg Polyethylene Glycol (Miralax) 17 gm PO TID [facility] Last Admin: 04/24/17 17:09 Dose: Not Given - Labs Labs: 04/24/17 06:00 04/24/17 06:00 PT 13.4 SECONDS (9.4-12.5) H 04/25/17 06:30 INR 1.16 (0.93-1.08) H 04/25/17 06:30 APTT 35.8 Seconds (25.1-36.5) 04/25/17 06:30 - Constitutional Appears: No Acute Distress - Head Exam Head Exam: NORMAL INSPECTION - Neurological Exam Neurological Exam: Alert, Awake Neuro motor strength exam: Left Upper Extremity: 5, Right Upper Extremity: 5, Left Lower Extremity: 5, Right Lower Extremity: 5 Additional comments: Neurological improved from previous examination. He is able to move both lower extremities and more alert. Assessment and Plan (1) Seizure Assessment & Plan: Case discussed with Dr. Sosa, continue all current medical. physical therapies. There is no new recommendations from neurology. Status: Acute
[2017-04-25 07:34] LABS: ALB/GLOB RATIO 0.7 (1.1-1.8); ALBUMIN 2.4 g/dL (3.0-4.8); ALT/SGPT 254 U/L (7-56); AST/SGOT 233 U/L (17-59); BLOOD UREA NITROGEN 11 mg/dL (7-21); CALCIUM 8.3 mg/dL (8.4-10.5); GFR AFRICAN-AMERICAN > 60; GFR NON-AFRICAN AMERICAN > 60
[2017-04-25] MEDS: Insulin Reg-LOW-Coverage SC SCH ×4 (08:32→21:51)
[2017-04-25] MEDS: Amylase/Lipase/Protease 5,000 Units ECC PO SCH ×3 (08:32→16:39)
[2017-04-25] MEDS: Vancomycin 1gm in NS 250ml 1 GM/250 ML BAG IVPB SCH ×2 (09:50→23:37)
[2017-04-25] MEDS: POLYETHYLENE GLYCOL 3350 17 GM/Dose PACKET PO SCH ×3 (09:57→18:40)
[2017-04-25] MEDS ORDERED: Lidocaine 2% Inj (20ml) ONE (13:56)
[2017-04-25] MEDS ORDERED: HEPARIN SODIUM/NS 2,000 ML IV ONE (13:57)
[2017-04-25] MEDS ORDERED: Iodixanol 320 MG/ML 100 ML BOTTLE IV ONE ×2 (13:57→15:50)
--- NOTE | 2017-04-25 14:34 | RAD ---
PROCEDURE: Fluoroscopy up to 1 hour HISTORY: ATTEMPTED ERCP / CBD OBST COMPARISON: TECHNIQUE: Fluoroscopy was provided in the endoscopy suite. 9.3 seconds of fluoro time were used. A single image was submitted showing the endoscope in place. FINDINGS: The common duct was not visualize. IMPRESSION: As above
[2017-04-25] MEDS ORDERED: Midazolam 2 MG/2 ML VIAL ONE ×3 (14:35→16:10)
[2017-04-25] MEDS: Oxycodone/Acetaminophen 5/325 mg Tab PO PRN ×2 (14:40→20:20)
[2017-04-25] MEDS ORDERED: HEPARIN SODIUM/NS 1,000 ML IV ONE (16:14)
[2017-04-25] MEDS ORDERED: Morphine 4 mg/ml ISec IVP PRN (16:55)
[2017-04-25] MEDS ORDERED: Morphine 5 MG/ML SYRINGE IVP PRN (17:03)
--- NOTE | 2017-04-25 17:42 | CP.PCM.PN ---
Subjective - Date & Time of Evaluation Date of Evaluation: 04/25/17 Time of Evaluation: 12:25 - Subjective Subjective: No fevers, not in distress. Objective - Vital Signs/Intake and Output Vital Signs (last 24 hours): Temp Pulse Resp BP Pulse Ox 97.8 F 68 20 137/72 97 04/25/17 08:00 04/25/17 08:00 04/25/17 08:00 04/25/17 08:00 04/25/17 08:00 Intake and Output: 04/25/17 04/25/17 06:59 18:59 Intake Total 1420 Output Total 900 Balance 520 - Medications Medications: Current Medications Acetaminophen (Tylenol 325mg Tab) 650 mg PO Q4H PRN PRN Reason: Pain, Mild (1-3) Amylase (Pancrease 69225 U-5000 U-33202 U) 5,000 unit PO ACTID [facility] Last Admin: 04/25/17 08:32 Dose: 5,000 unit Vancomycin HCl (Vancomycin 1gm) 1 gm in 250 mls @ 167 mls/hr IVPB Q12H [facility] PRN Reason: Protocol Last Admin: 04/25/17 09:50 Dose: 167 mls/hr Insulin Human Regular (Humulin R Low) 0 units SC ACHS [facility] PRN Reason: Protocol Last Admin: 04/25/17 08:32 Dose: 2 units Levetiracetam (Keppra) 250 mg PO BID [facility] Last Admin: 04/25/17 09:50 Dose: 250 mg Oxycodone/Acetaminophen (Percocet 5/325 Mg Tab) 1 tab PO Q4H PRN PRN Reason: Pain, moderate (4-7) Stop: 04/27/17 16:59 Last Admin: 04/24/17 17:18 Dose: 1 tab Pantoprazole Sodium (Protonix Inj) 40 mg IVP DAILY [facility] Last Admin: 04/25/17 09:50 Dose: 40 mg Polyethylene Glycol (Miralax) 17 gm PO TID [facility] Last Admin: 04/25/17 09:57 Dose: Not Given - Labs Labs: 04/25/17 06:30 04/25/17 06:30 PT 13.4 SECONDS (9.4-12.5) H 04/25/17 06:30 INR 1.16 (0.93-1.08) H 04/25/17 06:30 APTT 35.8 Seconds (25.1-36.5) 04/25/17 06:30 - Constitutional Appears: Chronically Ill - Head Exam Head Exam: NORMAL INSPECTION - ENT Exam ENT Exam: Mucous Membranes Moist - Neck Exam Neck Exam: absent: Meningismus - Respiratory Exam Respiratory Exam: Decreased Breath Sounds - Cardiovascular Exam Cardiovascular Exam: +S1, +S2 - GI/Abdominal Exam GI & Abdominal Exam: Soft. absent: Tenderness Assessment and Plan - Assessment and Plan (Free Text) Plan: Assessment severe sepsis due to MRSA bacteremia R/O biliary stent infection history of severe sepsis due to methicillin-resistant Staph aureus bacteremia, R /O due to bilateral lower extremity cellulitis R/O biliary tree infection chronic CHF in this patient with CAD pancreatic head mass, S/P EUS and percutaneous drain placement S/P biliary stent placement DM recent left hip fracture S/P surgery Plan continue Vancomycin day 69and complete at least 14-21 days of therapy; KIKE done 03/11/2017 was negative overall prognosis is poor
[2017-04-25] MEDS ORDERED: Lactated Ringer's 500 ML IV SCH (18:00)
[2017-04-25] MEDS ORDERED: Meropenem IV 1 gm in NS 50 ML IVPB STA (19:16)
[2017-04-25] MEDS ORDERED: Vancomycin 1gm in NS 250ml 1 GM/250 ML BAG IVPB STA (19:17)
--- NOTE | 2017-04-25 20:14 | VASCULAR ---
PROCEDURE: 1. Transhepatic internal/external biliary drain 2. Biliary dilatation HISTORY: Pancreatic CA. Previous biliary metallic stent. Dislodged. Recurrent biliary obstruction. Needs drainage. PHYSICIAN(S): Chicho Trujillo MD. TECHNIQUE: The relative risks and indications of the procedure were explained the patient consent obtained. The patient is placed supine on the arteriogram table a subxiphoid region prepped and draped usual sterile fashion. Conscious sedation monitoring were provided throughout the procedure by a nurse. Under ultrasound guidance, a dilated left duct was entered. Contrast was injected and a cholangiogram performed. With some difficulty, a 0.018 guidewire was advanced into the CBD. Small dilators were not advanced over the wire. Subsequently the left sided biliary system was dilated with a 6 mm balloon. 0.035 glidewire was used to negotiate the JOSIAH distal CBD obstruction. A support wire was placed in the duodenum. A 12 Iraqi internal external biliary drain was placed. The drain was flushed and secured. The patient tolerated the procedure FINDINGS: There is severe intrahepatic bile duct dilatation. The common hepatic duct and CBD is dilated to the point of a malignant obstruction in the head of the pancreas. No contrast enters the duodenum. The obstruction was crossed with the glidewire subsequent placement of a 12 Iraqi internal/ external biliary drain. IMPRESSION: Distal CBD obstruction related the patient's known pancreatic head mass. Successful internal external biliary drainage. A 12 Iraqi catheter was placed. Percutaneous biliary dilatation with a 6 mm balloon.
[2017-04-25] MEDS: Meropenem IV 1 gm in NS 50 ML IVPB SCH (21:54)
[2017-04-25] MEDS: Sodium Chloride 0.45% 1,000 ML IV SCH (21:54)
[2017-04-26] MEDS: Oxycodone/Acetaminophen 5/325 mg Tab PO PRN ×3 (03:46→15:04)
[2017-04-26] MEDS: Sodium Chloride 0.45% 1,000 ML IV SCH (06:06)
[2017-04-26] MEDS: Meropenem IV 1 gm in NS 50 ML IVPB SCH ×3 (06:06→22:22)
[2017-04-26 06:59] LABS: ALB/GLOB RATIO 0.7 (1.1-1.8); ALBUMIN 2.2 g/dL (3.0-4.8); ALT/SGPT 187 U/L (7-56); AST/SGOT 102 U/L (17-59); BLOOD UREA NITROGEN 16 mg/dL (7-21); CALCIUM 8.1 mg/dL (8.4-10.5); GFR AFRICAN-AMERICAN > 60; GFR NON-AFRICAN AMERICAN > 60
[2017-04-26 07:05] LABS: HEMOGLOBIN 9.8 g/dL (14.0-18.0); MEAN CELL VOLUME 86.2 fl (80.0-105.0); MEAN CORPUSCULAR HEMOGLOBIN 28.2 pg (25.0-35.0); MEAN CORPUSCULAR HGB CONC 32.7 g/dl (31.0-37.0); MEAN PLATELET VOLUME 10.2 fl (7.0-11.0); RBC 3.48 10^6/uL (3.5-6.1); RED CELL DISTRIBUTION WIDTH 15.6 % (11.5-14.5)
[2017-04-26] MEDS: Insulin Reg-LOW-Coverage SC SCH ×3 (09:31→17:48)
[2017-04-26] MEDS: Amylase/Lipase/Protease 5,000 Units ECC PO SCH ×3 (11:33→19:26)
[2017-04-26] MEDS: POLYETHYLENE GLYCOL 3350 17 GM/Dose PACKET PO SCH ×3 (11:34→19:27)
--- NOTE | 2017-04-26 12:25 | CP.PCM.PN ---
<Elisa Campbell - Last Filed: 04/26/17 12:25> Subjective - Date & Time of Evaluation Date of Evaluation: 04/26/17 Time of Evaluation: 11:00 - Subjective Subjective: Seen and examined at the bedside earlier today, patient is status post PTC biliary drain placement, draining dark name bilious fluid, patient denies nausea , vomiting, fever or chills. No acute overnight events recorded. Denies pain at insertion site. Objective - Vital Signs/Intake and Output Vital Signs (last 24 hours): Temp Pulse Resp BP Pulse Ox 97.3 F L 74 18 108/66 99 04/26/17 06:00 04/26/17 06:00 04/26/17 06:00 04/26/17 06:00 04/26/17 06:00 Intake and Output: 04/26/17 04/26/17 06:59 18:59 Intake Total 600 Output Total 350 Balance 250 - Medications Medications: Current Medications Amylase (Pancrease 00547 U-5000 U-91183 U) 5,000 unit PO ACTID [facility] Last Admin: 04/26/17 11:34 Dose: Not Given Vancomycin HCl (Vancomycin 1gm) 1 gm in 250 mls @ 167 mls/hr IVPB Q12H [facility] PRN Reason: Protocol Last Admin: 04/25/17 23:37 Dose: 167 mls/hr Meropenem (Merrem Iv 1 Gm Premix) 50 mls @ 200 mls/hr IVPB Q8 [facility] Last Admin: 04/26/17 06:06 Dose: 200 mls/hr Insulin Human Regular (Humulin R Low) 0 units SC ACHS [facility] PRN Reason: Protocol Last Admin: 04/26/17 11:33 Dose: 4 units Levetiracetam (Keppra) 250 mg PO BID [facility] Last Admin: 04/26/17 11:33 Dose: 250 mg Morphine Sulfate (Morphine) 4 mg IVP Q6 PRN PRN Reason: PAIN MOD [4-7] Oxycodone/Acetaminophen (Percocet 5/325 Mg Tab) 1 tab PO Q4H PRN PRN Reason: Pain, moderate (4-7) Stop: 04/27/17 16:59 Last Admin: 04/26/17 09:31 Dose: 1 tab Pantoprazole Sodium (Protonix Ec Tab) 40 mg PO ACB [facility] Polyethylene Glycol (Miralax) 17 gm PO TID [facility] Last Admin: 04/26/17 11:34 Dose: Not Given - Labs Labs: 04/26/17 06:30 04/26/17 06:30 PT 13.4 SECONDS (9.4-12.5) H 04/25/17 06:30 INR 1.16 (0.93-1.08) H 04/25/17 06:30 APTT 35.8 Seconds (25.1-36.5) 04/25/17 06:30 - Constitutional Appears: No Acute Distress - Eye Exam Eye Exam: Normal appearance - ENT Exam ENT Exam: Mucous Membranes Moist - Neck Exam Neck Exam: Normal Inspection - Respiratory Exam Respiratory Exam: Decreased Breath Sounds, NORMAL BREATHING PATTERN. absent: Respiratory Distress - Cardiovascular Exam Cardiovascular Exam: +S1, +S2 - GI/Abdominal Exam GI & Abdominal Exam: Soft, Normal Bowel Sounds. absent: Guarding, Tenderness, Rebound Additional comments: ruq biliary drain, dressing D/I, non tender: dark bilious fluid - Extremities Exam Extremities Exam: absent: Calf Tenderness, Pedal Edema - Neurological Exam Neurological Exam: Alert, Awake, Oriented x3 - Skin Skin Exam: Dry, Warm Assessment and Plan - Assessment and Plan (Free Text) Assessment: Assessment: Sepsis, bacteremia Seizure Pancreatic cancer status post biliary stents, status post CT scan showing nonvisualization of the metallic stent, no on 04/25/ s/p PTC biliary drain Elevated LFT History of diabetes mellitus Plan: Diet as tolerated recehck WBC on Pancreatic enzymes prior to meals Continue IV antibiotics on Keppra on Heparin SQ pain mgt Monitor LFTs Continue GI prophylaxis Seen and discussed with Dr. Bradley. <Yomaira Bradley V - Last Filed: 04/26/17 23:52> Objective - Vital Signs/Intake and Output Vital Signs (last 24 hours): Temp Pulse Resp BP Pulse Ox 97.3 F L 81 18 103/59 L 97 04/26/17 06:00 04/26/17 16:00 04/26/17 16:00 04/26/17 16:00 04/26/17 16:00 Intake and Output: 04/26/17 04/27/17 18:59 06:59 Intake Total 760 180 Output Total 300 Balance 760 -120 - Medications Medications: Current Medications Amylase (Pancrease 48922 U-5000 U-43955 U) 5,000 unit PO ACTID [facility] Last Admin: 04/26/17 19:26 Dose: Not Given Hydromorphone HCl (Dilaudid) 0.5 mg IVP Q6H PRN PRN Reason: Pain, severe (8-10) Last Admin: 04/26/17 19:06 Dose: 0.5 mg Vancomycin HCl (Vancomycin 1gm) 1 gm in 250 mls @ 167 mls/hr IVPB Q12H [facility] PRN Reason: Protocol Last Admin: 04/26/17 23:11 Dose: 167 mls/hr Meropenem (Merrem Iv 1 Gm Premix) 50 mls @ 200 mls/hr IVPB Q8 [facility] Last Admin: 04/26/17 22:22 Dose: 200 mls/hr Insulin Human Regular (Humulin R Low) 0 units SC ACHS [facility] PRN Reason: Protocol Last Admin: 04/26/17 17:48 Dose: 2 units Levetiracetam (Keppra) 250 mg PO BID [facility] Last Admin: 04/26/17 19:26 Dose: Not Given Mupirocin (Bactroban Ointment) 0 gm TOP DAILY [facility] Oxycodone/Acetaminophen (Percocet 5/325 Mg Tab) 1 tab PO Q4H PRN PRN Reason: Pain, moderate (4-7) Stop: 04/27/17 16:59 Last Admin: 04/26/17 15:04 Dose: 1 tab Pantoprazole Sodium (Protonix Ec Tab) 40 mg PO ACB [facility] Polyethylene Glycol (Miralax) 17 gm PO TID [facility] Last Admin: 04/26/17 19:27 Dose: Not Given - Labs Labs: 04/26/17 13:00 04/26/17 06:30 PT 13.4 SECONDS (9.4-12.5) H 04/25/17 06:30 INR 1.16 (0.93-1.08) H 04/25/17 06:30 APTT 35.8 Seconds (25.1-36.5) 04/25/17 06:30 Attending/Attestation - Attestation I have personally seen and examined this patient.: Yes I have fully participated in the care of the patient.: Yes I have reviewed all pertinent clinical information, including history, physical exam and plan: Yes Notes (Text): This is an addendum to GI progress report dictated by Elisa Campbell APN.The patient was seen and examined earlier. Medical records, lab studies, imagings were reviewed. Last 24 hours events reviewed. Agreed with the above treatment plan as outlined in Elisa Campbell APN's notes the with the addition of the following 04/26/17 23:52
[2017-04-26] MEDS: Vancomycin 1gm in NS 250ml 1 GM/250 ML BAG IVPB SCH ×2 (13:04→23:11)
--- NOTE | 2017-04-26 16:12 | PN ---
DATE: 04/26/2017 LOCATION: The patient was seen on Tuesday late morning, in room 572, bed 1. SUBJECTIVE: He is sitting in the bed and was comfortable, in no acute distress. He reports some abdominal discomfort from his percutaneous stent placement and biliary drain tube, it was severe yesterday, but much improved today. PHYSICAL EXAMINATION: LUNGS: Showed good aeration, right and left. EXTREMITIES: Show no edema. PLAN: We will discuss with GI and family regarding Oncology and alternative options of surgery. Whipple procedure does not seem to be the best option at this point. We will need to discuss with Oncology, consider chemo or radiation versus palliative care. Rehan Jeff MD MTDD
--- NOTE | 2017-04-26 17:30 | RAD ---
PROCEDURE: Left Foot Radiographs. HISTORY: left diabetic heel ulcer COMPARISON: 03/04/2017 FINDINGS: BONES: There is a chronic bony deformity of the calcaneus. There is no evidence of acute osteomyelitis JOINTS: Normal. SOFT TISSUES: Normal. OTHER FINDINGS: None. IMPRESSION: There is a chronic bony deformity of the calcaneus. There is no evidence of acute osteomyelitis
[2017-04-26] MEDS ORDERED: HYDROmorphone 0.5 mg/0.5 ml ISec IVP PRN (18:57)
[2017-04-26] MEDS ORDERED: HYDROmorphone 0.5 mg/0.5 ml ISec IVP STA (19:14)
[2017-04-27] MEDS ORDERED: HYDROmorphone 0.5 mg/0.5 ml ISec IVP PRN (00:02)
[2017-04-27] MEDS: Vancomycin 1gm in NS 250ml 1 GM/250 ML BAG IVPB SCH ×2 (01:36→11:30)
[2017-04-27] MEDS: Insulin Reg-LOW-Coverage SC SCH ×4 (01:38→19:00)
--- NOTE | 2017-04-27 02:30 | PN ---
DATE: 04/26/2017 SUBJECTIVE: The patient is in bed, in no acute distress, was seen earlier this morning 572, bed 1. PHYSICAL EXAMINATION: VITAL SIGNS: Temperature is 97, T-max yesterday was 101.5 , blood pressure is 93/50, respiratory rate of 18, and heart rate of 81. HEENT: Unremarkable. NECK: Supple. LUNGS: Have decreased breath sounds. HEART: Normal S1 and S2. ABDOMEN: Soft. LABORATORY DATA: Reveals a white count of 33,000, hemoglobin of 11 down to 9.8. BUN of 16, creatinine of 0.9, alkaline phosphatase procalcitonin is less than 0.05. Urinalysis is noted. Microbiology is noted. Vancomycin trough of 18. Microbiology reveals the blood cultures are positive for MRSA. Repeat blood cultures are negative. Review of orders reveal the patient to be on meropenem and vancomycin. ASSESSMENT AND PLAN: This is a 76-year-old male with severe sepsis due to methicillin-resistant Staphylococcus aureus bacteremia, rule out biliary stent infection, on vancomycin and meropenem. Repeat cultures from 04/17/2017, no growth, today is day #10, would complete 14 to 21 days. Jose David Gracia MD
[2017-04-27] MEDS: Meropenem IV 1 gm in NS 50 ML IVPB SCH ×3 (05:18→23:21)
--- NOTE | 2017-04-27 07:17 | CP.PCM.PN ---
Subjective - Date & Time of Evaluation Date of Evaluation: 04/27/17 Time of Evaluation: 07:14 - Subjective Subjective: Mr. Ibarra was seen and examined at the bedside. He is alert, oriented, but very sleepy. He was given pain medication early this morning. He is oriented to place, person, but not time (1977). He denies any headache, blurred vision. He kept on saying "Im sorry, Im too sleepy to talk to you."He is able to move all extremities spontaneously. He has abdominal dressing intact with a drainage tube draining to a bile colored fluid. There was no untoward events overnight. Objective - Vital Signs/Intake and Output Vital Signs (last 24 hours): Temp Pulse Resp BP Pulse Ox 97.3 F L 81 18 103/59 L 97 04/26/17 06:00 04/26/17 16:00 04/26/17 16:00 04/26/17 16:00 04/26/17 16:00 Intake and Output: 04/27/17 04/27/17 06:59 18:59 Intake Total 180 Output Total 300 Balance -120 - Medications Medications: Current Medications Amylase (Pancrease 08312 U-5000 U-90110 U) 5,000 unit PO ACTID [facility] Last Admin: 04/26/17 19:26 Dose: Not Given Hydromorphone HCl (Dilaudid) 1 mg IVP Q6H PRN PRN Reason: Pain, severe (8-10) Last Admin: 04/27/17 01:29 Dose: 1 mg Vancomycin HCl (Vancomycin 1gm) 1 gm in 250 mls @ 167 mls/hr IVPB Q12H [facility] PRN Reason: Protocol Last Admin: 04/27/17 01:36 Dose: 167 mls/hr Meropenem (Merrem Iv 1 Gm Premix) 50 mls @ 200 mls/hr IVPB Q8 [facility] Last Admin: 04/27/17 05:18 Dose: 200 mls/hr Insulin Human Regular (Humulin R Low) 0 units SC ACHS [facility] PRN Reason: Protocol Last Admin: 04/27/17 01:38 Dose: Not Given Levetiracetam (Keppra) 250 mg PO BID [facility] Last Admin: 04/26/17 19:26 Dose: Not Given Mupirocin (Bactroban Ointment) 0 gm TOP DAILY [facility] Oxycodone/Acetaminophen (Percocet 5/325 Mg Tab) 1 tab PO Q4H PRN PRN Reason: Pain, moderate (4-7) Stop: 04/27/17 16:59 Last Admin: 04/26/17 15:04 Dose: 1 tab Pantoprazole Sodium (Protonix Ec Tab) 40 mg PO ACB [facility] Polyethylene Glycol (Miralax) 17 gm PO TID [facility] Last Admin: 04/26/17 19:27 Dose: Not Given - Labs Labs: 04/26/17 13:00 04/26/17 06:30 PT 13.4 SECONDS (9.4-12.5) H 04/25/17 06:30 INR 1.16 (0.93-1.08) H 04/25/17 06:30 APTT 35.8 Seconds (25.1-36.5) 04/25/17 06:30 - Constitutional Appears: No Acute Distress - Head Exam Head Exam: NORMAL INSPECTION - Neurological Exam Neurological Exam: Alert, Awake Neuro motor strength exam: Left Upper Extremity: 4, Right Upper Extremity: 4, Left Lower Extremity: 4, Right Lower Extremity: 4 Additional comments: He is alert, oriented, at this time unable to follow simple commands, but moves all extremities spontaneously. Sensation remains intact. Assessment and Plan (1) Seizure Assessment & Plan: Case discussed with Dr. Sosa, continue all current medical, physical therapies. If the mental status decline to repeat CT of the head without contrast. Status: Acute
[2017-04-27 07:55] LABS: HEMOGLOBIN 10.7 g/dL (14.0-18.0); MEAN CELL VOLUME 85.6 fl (80.0-105.0); MEAN CORPUSCULAR HEMOGLOBIN 28.1 pg (25.0-35.0); MEAN CORPUSCULAR HGB CONC 32.8 g/dl (31.0-37.0); MEAN PLATELET VOLUME 10.5 fl (7.0-11.0); RBC 3.81 10^6/uL (3.5-6.1); RED CELL DISTRIBUTION WIDTH 16.1 % (11.5-14.5)
[2017-04-27 08:07] LABS: ALB/GLOB RATIO 0.8 (1.1-1.8); ALBUMIN 2.5 g/dL (3.0-4.8); ALT/SGPT 130 U/L (7-56); AST/SGOT 43 U/L (17-59); BLOOD UREA NITROGEN 30 mg/dL (7-21); CALCIUM 8.4 mg/dL (8.4-10.5); GFR AFRICAN-AMERICAN > 60; GFR NON-AFRICAN AMERICAN > 60
[2017-04-27 08:13] LABS: WHITE BLOOD COUNT 39.7 10^3/ul (4.5-11.0)
[2017-04-27] MEDS: Amylase/Lipase/Protease 5,000 Units ECC PO SCH ×3 (08:16→19:01)
[2017-04-27] MEDS: Pantoprazole 40 mg EC Tab PO SCH (08:16)
--- NOTE | 2017-04-27 09:01 | CON ---
DATE: 04/26/2017 HISTORY OF PRESENT ILLNESS: A 76-year-old male seen at bedside with his daughter present for a recent wound on his left heel. The patient's daughter states that it has been there for the past few weeks. The patient's medical history is significant for pancreatic cancer, patient's sepsis, coronary artery disease, longstanding uncontrolled diabetes, insulin-dependent diabetes. SURGICAL HISTORY: The patient had recent left hip surgery in 12/2016, status post biliary stent placement. ALLERGIES: THE PATIENT HAS NO KNOWN DRUG ALLERGIES. HOME MEDICATIONS: Noted in MAY. FAMILY HISTORY: Unremarkable. SOCIAL HISTORY: The patient is a nonsmoker. Denies illicit drug use. Denies alcohol abuse. OBJECTIVE: Weakly palpable dorsalis pedis pulse noted bilaterally. Nonpalpable posterior tibial pulse noted bilaterally. Absent pedal hair growth noted bilaterally. Lower extremity presents thin, shining, discolored bilaterally. The patient is unable to detect 5.07 gm monofilament wire testing bilaterally. There is a full-thickness ulceration located on the posterior aspect of the left heel that measures approximately 0.4 x 0.3 x 0.2 cm. 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 None of the ulcers probe to tendon or bone. There is no purulence emanating from the wounds. There are no signs of abscess formation. There is no malodor. ASSESSMENT: Diabetic left heel ulceration. PLAN: The patient's wound was cleansed with normal sterile saline. A culture and sensitivity was taken and submitted. We will order x-rays of the right heel. We will order a foam Multi-Podus boots to offload the heels. The wound was cleansed with normal sterile saline. We will apply Bactroban and a dry sterile dressing daily. We will await x-ray and culture results. Fede Geller DPM
--- NOTE | 2017-04-27 10:19 | CT ---
PROCEDURE: CT Abdomen and Pelvis without intravenous contrast HISTORY: R/O Abscess COMPARISON: None. TECHNIQUE: Without contrast.. Contrast Dose: Radiation dose: Total exam DLP = 722 mGy-cm. This CT exam was performed using one or more of the following dose reduction techniques: Automated exposure control, adjustment of the mA and/or kV according to patient size, and/or use of iterative reconstruction technique. FINDINGS: LOWER THORAX: Bilateral pleural effusions are seen as well as lower lobe infiltrates LIVER: A catheter traverses the left lobe of the liver and enters the hepatic ducts and common bile duct and exits in the duodenum. There is no intrahepatic ductal dilatation GALLBLADDER AND BILE DUCTS: Unremarkable. PANCREAS: There is diffuse atrophy of the pancreas and dilatation of the pancreatic duct SPLEEN: Unremarkable. ADRENALS: Unremarkable. No mass. KIDNEYS AND URETERS: Unremarkable. No hydronephrosis. No solid mass. VASCULATURE: Unremarkable. No aortic aneurysm. BOWEL: Unremarkable. No obstruction. No gross mural thickening. APPENDIX: Unremarkable. Normal appendix. PERITONEUM: There is moderate ascites. There is edema in the subcutaneous tissues consistent with anasarca. LYMPH NODES: Unremarkable. No enlarged lymph nodes. BLADDER: Unremarkable. REPRODUCTIVE: Unremarkable. BONES: No acute fracture. OTHER FINDINGS: None. IMPRESSION: Biliary catheter in place. No intrahepatic ductal dilatation. Moderate ascites and anasarca Bibasilar infiltrates and small pleural effusions
[2017-04-27] MEDS: HYDROmorphone 2 mg/ml ISec IVP PRN ×2 (11:14→19:06)
[2017-04-27] MEDS: POLYETHYLENE GLYCOL 3350 17 GM/Dose PACKET PO SCH ×2 (11:30→14:10)
[2017-04-27 12:19] LABS: PH,URINE 5.5 (4.7-8.0); URINE BILIRUBIN SMALL (NEGATIVE); URINE BLOOD LARGE (NEGATIVE); URINE GLUCOSE (UA) NEGATIVE (NEGATIVE); URINE LEUKOCYTE ESTERASE NEGATIVE Leu/uL (NEGATIVE); URINE NITRATE NEGATIVE (NEGATIVE); URINE PROTEIN 100 mg/dL (<30 mg/dL); URINE UROBILINOGEN 0.2 E.U./dL (<1 E.U./dL)
[2017-04-27 12:21] LABS: URINE APPEARANCE TURBID (CLEAR); URINE COLOR BROWN (YELLOW)
[2017-04-27 12:22] LABS: URINE EPITHELIAL CELLS 0 - 2 /hpf (0-5); URINE RBC TNTC /hpf (0-2)
[2017-04-27 12:23] LABS: URINE BACTERIA MANY (NEG); URINE COARSE GRANULAR CAST TRACE /hpf (0-2)
--- NOTE | 2017-04-27 16:38 | CP.PCM.PN ---
<Elisa Campbell - Last Filed: 04/27/17 16:37> Subjective - Date & Time of Evaluation Date of Evaluation: 04/27/17 Time of Evaluation: 14:00 - Subjective Subjective: S&E at bedside, chart reviewed. WBC elevating. Patient c/o RUQ abdominal pain. No N/V fever or chills. Family at bedside. Reported to be having loose BM, no bleeding. PTC drain with dark green fluid, Went for ct scan A&P , Ct scan reviewed by Dr. Bradley, biliary drain noted and no obstruction, or bilary dilation, stool in colon. See [facility] for full report. Objective - Vital Signs/Intake and Output Vital Signs (last 24 hours): Temp Pulse Resp BP Pulse Ox 98.2 F 76 19 121/58 L 95 04/27/17 07:30 04/27/17 07:30 04/27/17 07:30 04/27/17 07:30 04/27/17 07:30 Intake and Output: 04/27/17 04/27/17 06:59 18:59 Intake Total 180 Output Total 300 Balance -120 - Medications Medications: Current Medications Amylase (Pancrease 27759 U-5000 U-89984 U) 5,000 unit PO ACTID [facility] Last Admin: 04/27/17 11:30 Dose: 5,000 unit Hydromorphone HCl (Dilaudid) 1 mg IVP Q6H PRN PRN Reason: Pain, severe (8-10) Last Admin: 04/27/17 11:14 Dose: 1 mg Vancomycin HCl (Vancomycin 1gm) 1 gm in 250 mls @ 167 mls/hr IVPB Q12H [facility] PRN Reason: Protocol Last Admin: 04/27/17 11:30 Dose: 167 mls/hr Meropenem (Merrem Iv 1 Gm Premix) 50 mls @ 200 mls/hr IVPB Q8 [facility] Last Admin: 04/27/17 14:53 Dose: 200 mls/hr Insulin Human Regular (Humulin R Low) 0 units SC ACHS [facility] PRN Reason: Protocol Last Admin: 04/27/17 11:30 Dose: 1 units Levetiracetam (Keppra) 250 mg PO BID [facility] Last Admin: 04/27/17 11:31 Dose: 250 mg Mupirocin (Bactroban Ointment) 0 gm TOP DAILY [facility] Oxycodone/Acetaminophen (Percocet 5/325 Mg Tab) 1 tab PO Q4H PRN PRN Reason: Pain, moderate (4-7) Stop: 04/27/17 16:59 Last Admin: 04/26/17 15:04 Dose: 1 tab Pantoprazole Sodium (Protonix Ec Tab) 40 mg PO ACB [facility] Last Admin: 04/27/17 08:16 Dose: 40 mg Polyethylene Glycol (Miralax) 17 gm PO TID [facility] Last Admin: 04/27/17 14:10 Dose: Not Given - Labs Labs: 04/27/17 06:00 04/27/17 06:00 PT 13.4 SECONDS (9.4-12.5) H 04/25/17 06:30 INR 1.16 (0.93-1.08) H 04/25/17 06:30 APTT 35.8 Seconds (25.1-36.5) 04/25/17 06:30 - Constitutional Appears: No Acute Distress - Eye Exam Eye Exam: Normal appearance. absent: Scleral icterus - ENT Exam ENT Exam: Mucous Membranes Moist - Respiratory Exam Respiratory Exam: NORMAL BREATHING PATTERN. absent: Respiratory Distress - Cardiovascular Exam Cardiovascular Exam: +S1, +S2 - GI/Abdominal Exam GI & Abdominal Exam: Soft, Tenderness (RUQ, distended, slighly firm), Normal Bowel Sounds. absent: Guarding, Rebound - Extremities Exam Extremities Exam: absent: Calf Tenderness - Neurological Exam Neurological Exam: Alert, Awake, Oriented x3 - Skin Skin Exam: Dry, Warm Assessment and Plan - Assessment and Plan (Free Text) Assessment: Assessment: Leukocytosis/Sepsis, bacteremia Seizure Pancreatic cancer status post biliary stents, status post CT scan showing nonvisualization of the metallic stent, no on 04/25/ s/p PTC biliary drain Elevated LFT History of diabetes mellitus Plan: change diet to clear liquid restart Miralax on Pancreatic enzymes prior to meals Continue IV antibiotics on Keppra on Heparin SQ pain mgt Monitor LFTs Continue GI prophylaxis ID on board stool Cdiff Seen and discussed with Dr. Bradley. <Yomaira Bradley V - Last Filed: 04/27/17 23:40> Objective - Vital Signs/Intake and Output Vital Signs (last 24 hours): Temp Pulse Resp BP Pulse Ox 99 F 113 H 20 119/79 93 L 04/27/17 16:43 04/27/17 16:43 04/27/17 16:43 04/27/17 16:43 04/27/17 16:43 Intake and Output: 04/27/17 04/28/17 18:59 06:59 Intake Total 120 Output Total 300 Balance -180 - Medications Medications: Current Medications Amylase (Pancrease 54742 U-5000 U-00019 U) 5,000 unit PO ACTID [facility] Last Admin: 04/27/17 19:01 Dose: 5,000 unit Doxycycline Hyclate (Doryx) 100 mg PO Q12 [facility] PRN Reason: Protocol Stop: 05/06/17 22:01 Last Admin: 04/27/17 22:30 Dose: 100 mg Hydromorphone HCl (Dilaudid) 1 mg IVP Q6H PRN PRN Reason: Pain, severe (8-10) Last Admin: 04/27/17 19:06 Dose: 1 mg Meropenem (Merrem Iv 1 Gm Premix) 50 mls @ 200 mls/hr IVPB Q8 [facility] Last Admin: 04/27/17 23:21 Dose: 200 mls/hr Daptomycin 420 mg/ Sodium (Chloride) 100 mls @ 200 mls/hr IV Q24H [facility] Stop: 05/25/17 19:31 Last Admin: 04/27/17 22:31 Dose: 200 mls/hr Insulin Human Regular (Humulin R Low) 0 units SC ACHS [facility] PRN Reason: Protocol Last Admin: 04/27/17 19:00 Dose: 2 units Levetiracetam (Keppra) 250 mg PO BID [facility] Last Admin: 04/27/17 18:59 Dose: 250 mg Mupirocin (Bactroban Ointment) 0 gm TOP DAILY [facility] Last Admin: 04/27/17 14:20 Dose: 1 applic Pantoprazole Sodium (Protonix Ec Tab) 40 mg PO ACB [facility] Last Admin: 04/27/17 08:16 Dose: 40 mg Polyethylene Glycol (Miralax) 17 gm PO TID [facility] Last Admin: 04/27/17 14:10 Dose: Not Given - Labs Labs: 04/27/17 06:00 04/27/17 06:00 PT 13.4 SECONDS (9.4-12.5) H 04/25/17 06:30 INR 1.16 (0.93-1.08) H 04/25/17 06:30 APTT 35.8 Seconds (25.1-36.5) 04/25/17 06:30 Attending/Attestation - Attestation I have personally seen and examined this patient.: Yes I have fully participated in the care of the patient.: Yes I have reviewed all pertinent clinical information, including history, physical exam and plan: Yes Notes (Text): This is an addendum to GI progress report dictated by Elisa Campbell APN.The patient was seen and examined earlier. Medical records, lab studies, imagings were reviewed. Last 24 hours events reviewed. Agreed with the above treatment plan as outlined in Elisa Campbell APN's notes the with the addition of the following 04/27/17 23:40
--- NOTE | 2017-04-27 16:45 | CP.PCM.PN ---
Subjective - Date & Time of Evaluation Date of Evaluation: 04/27/17 Time of Evaluation: 16:40 - Subjective Subjective: 76 y/o male seen at bedside with attending Dr. Curry for left heel pressure ulcerations. Pt accompanied by family at time of visit. Admits to pain in the back of the left foot, especially when anything rubs against it. Denies F/C/N/V/ CP/SOB at present. Pt's daughter states she tries to elevate his legs with pillows to help take pressure off the heels. Objective - Vital Signs/Intake and Output Vital Signs (last 24 hours): Temp Pulse Resp BP Pulse Ox 98.2 F 76 19 121/58 L 95 04/27/17 07:30 04/27/17 07:30 04/27/17 07:30 04/27/17 07:30 04/27/17 07:30 Intake and Output: 04/27/17 04/27/17 06:59 18:59 Intake Total 180 Output Total 300 Balance -120 - Medications Medications: Current Medications Amylase (Pancrease 95562 U-5000 U-77750 U) 5,000 unit PO ACTID [facility] Last Admin: 04/27/17 11:30 Dose: 5,000 unit Hydromorphone HCl (Dilaudid) 1 mg IVP Q6H [facility]N PRN Reason: Pain, severe (8-10) Last Admin: 04/27/17 11:14 Dose: 1 mg Vancomycin HCl (Vancomycin 1gm) 1 gm in 250 mls @ 167 mls/hr IVPB Q12H [facility] PRN Reason: Protocol Last Admin: 04/27/17 11:30 Dose: 167 mls/hr Meropenem (Merrem Iv 1 Gm Premix) 50 mls @ 200 mls/hr IVPB Q8 [facility] Last Admin: 04/27/17 14:53 Dose: 200 mls/hr Insulin Human Regular (Humulin R Low) 0 units SC ACHS [facility] PRN Reason: Protocol Last Admin: 04/27/17 11:30 Dose: 1 units Levetiracetam (Keppra) 250 mg PO BID [facility] Last Admin: 04/27/17 11:31 Dose: 250 mg Mupirocin (Bactroban Ointment) 0 gm TOP DAILY [facility] Oxycodone/Acetaminophen (Percocet 5/325 Mg Tab) 1 tab PO Q4H [facility]N PRN Reason: Pain, moderate (4-7) Stop: 04/27/17 16:59 Last Admin: 04/26/17 15:04 Dose: 1 tab Pantoprazole Sodium (Protonix Ec Tab) 40 mg PO ACB [facility] Last Admin: 04/27/17 08:16 Dose: 40 mg Polyethylene Glycol (Miralax) 17 gm PO TID [facility] Last Admin: 04/27/17 14:10 Dose: Not Given - Labs Labs: 04/27/17 06:00 04/27/17 06:00 PT 13.4 SECONDS (9.4-12.5) H 04/25/17 06:30 INR 1.16 (0.93-1.08) H 04/25/17 06:30 APTT 35.8 Seconds (25.1-36.5) 04/25/17 06:30 - Constitutional Appears: Well, Non-toxic, No Acute Distress - Extremities Exam Additional comments: Lower extremity focused exam: Vasc: DP/PT pulses palpable 2/4. Temperature gradient warm to cool. CFT < 3 sec to all digits. No pedal edema noted. Derm: Two posterior heel ulcerations noted to left foot. Medial ulceration measures approx. 0.7cm x 0.5cm x 0.4cm with fibrotic base. Mild tj wound erythema. No maceration noted to wound edges. No fluctuance, purulent drainage, tunneling, undermining or malodor. Second ulceration noted approx 1 cm lateral to above mentioned ulcer. Measures approx. 1.0 cm x 1.1cm x 0.1cm with fibrogranular wound base. No fluctuance, purulence, malodor, tunneling or undermining. Additional superficial hyperkeratotic scab noted to posterior aspect of right heel, stable. Neuro: Protective sensation grossly intact Ortho: Mild tenderness to palpation of left posterior heel ulcerations. Chantal s deformity noted to posterior left heel at site of ulcerations. - Neurological Exam Neurological Exam: Alert, Awake, Oriented x3 - Psychiatric Exam Psychiatric exam: Normal Affect, Normal Mood Assessment and Plan - Assessment and Plan (Free Text) Assessment: 76 y/o male with left heel diabetic ulcerations worsened by pressure/bed bound status Plan: Pt seen and evaluated at bedside with attending Dr. 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
[2017-04-27] MEDS ORDERED: DAPTOmycin 500 mg Inj (Cubicin) IV SCH (19:30)
--- NOTE | 2017-04-28 01:06 | PN ---
DATE: 04/27/2017 SUBJECTIVE: The patient is in bed, in no acute distress. PHYSICAL EXAMINATION VITAL SIGNS: Temperature is 98, blood pressure is 119/70, respiratory rate of 20, heart rate of 81. HEENT: Unremarkable. NECK: Supple. LUNGS: Decreased breath sounds. HEART: Normal S1 and S2. ABDOMEN: Soft and nontender. LABORATORY DATA: Reveals the patient's white count is up to 39,000, hemoglobin of 10, platelets of 352. BUN of 30 and creatinine 1.1. Alkaline phosphatase is 528. Procalcitonin is less than 0.05. Urinalysis is noted. Toxicology is noted. Vancomycin trough is 18. Microbiology is noted with MRSA bacteremia, left foot with gram-positive cocci. The patient had a CAT scan of the abdomen and pelvis today without p.o. or IV contrast, bilateral effusions as well as right lower lobe infiltrates are seen. Diffuse atrophy of the pancreas, dilatation of the pancreatic duct. in left lobe of the liver that enters at hepatic duct and common bile duct and exits in the duodenum, no dilatation. ASSESSMENT AND PLAN: A 76-year-old male with severe sepsis due to methicillin-resistant Staphylococcus aureus bacteremia, rule out biliary stent with increase in WBC count, on vancomycin and meropenem. Unfortunately, the CAT scan of the abdomen and pelvis is done without contrast. We will follow closely with you. May need a repeat CAT scan with at least p.o. contrast. The patient's creatinine is increased from 0.7 to 1.1. We will discontinue the vancomycin and start daptomycin. We will order repeat blood, urine and sputum cultures. Add doxycycline the methicillin-resistant Staphylococcus aureus in the lungs. We will follow with you. Jose David Gracia MD
[2017-04-28] MEDS: Meropenem IV 1 gm in NS 50 ML IVPB SCH ×3 (05:32→23:08)
[2017-04-28 05:51] LABS: HEMOGLOBIN 9.4 g/dL (14.0-18.0); MEAN CELL VOLUME 84.2 fl (80.0-105.0); MEAN CORPUSCULAR HGB CONC 33.2 g/dl (31.0-37.0); MEAN PLATELET VOLUME 10.1 fl (7.0-11.0); RBC 3.36 10^6/uL (3.5-6.1); RED CELL DISTRIBUTION WIDTH 16.1 % (11.5-14.5); WHITE BLOOD COUNT 23.6 10^3/ul (4.5-11.0)
[2017-04-28 06:03] LABS: ALB/GLOB RATIO 0.7 (1.1-1.8); ALBUMIN 2.3 g/dL (3.0-4.8); CALCIUM 8.3 mg/dL (8.4-10.5)
[2017-04-28] MEDS: Insulin Reg-LOW-Coverage SC SCH ×4 (08:00→21:21)
[2017-04-28] MEDS: Amylase/Lipase/Protease 5,000 Units ECC PO SCH ×3 (08:08→16:39)
[2017-04-28] MEDS: Pantoprazole 40 mg EC Tab PO SCH (08:08)
--- NOTE | 2017-04-28 12:13 | CP.PCM.PN ---
Subjective - Date & Time of Evaluation Date of Evaluation: 04/28/17 Time of Evaluation: 12:12 - Subjective Subjective: Mr. Ibarra was seen and examined at the bedside. He is alert, but very sleepy. He received pain medication two hours ago. He is responsive to tactile stimuli and unable to participate during assessment. He has very poor appetite. He remains on contact isolation for MRSA in the blood. There was no untoward events overnight. Objective - Vital Signs/Intake and Output Vital Signs (last 24 hours): Temp Pulse Resp BP Pulse Ox 99.1 F 91 H 20 128/75 90 L 04/28/17 08:00 04/28/17 08:00 04/28/17 08:00 04/28/17 08:00 04/28/17 08:00 Intake and Output: 04/28/17 04/28/17 06:59 18:59 Intake Total 120 Output Total 1000 Balance -880 - Medications Medications: Current Medications Amylase (Pancrease 50416 U-5000 U-22199 U) 5,000 unit PO ACTID [facility] Last Admin: 04/28/17 08:08 Dose: 5,000 unit Doxycycline Hyclate (Doryx) 100 mg PO Q12 [facility] PRN Reason: Protocol Stop: 05/06/17 22:01 Last Admin: 04/28/17 09:20 Dose: 100 mg Hydromorphone HCl (Dilaudid) 1 mg IVP Q6H PRN PRN Reason: Pain, severe (8-10) Last Admin: 04/28/17 09:19 Dose: 1 mg Meropenem (Merrem Iv 1 Gm Premix) 50 mls @ 200 mls/hr IVPB Q8 [facility] Last Admin: 04/28/17 05:32 Dose: 200 mls/hr Daptomycin 420 mg/ Sodium (Chloride) 100 mls @ 200 mls/hr IV Q24H [facility] Stop: 05/25/17 19:31 Last Admin: 04/27/17 22:31 Dose: 200 mls/hr Insulin Human Regular (Humulin R Low) 0 units SC ACHS [facility] PRN Reason: Protocol Last Admin: 04/28/17 08:00 Dose: Not Given Levetiracetam (Keppra) 250 mg PO BID [facility] Last Admin: 04/28/17 09:21 Dose: 250 mg Mupirocin (Bactroban Ointment) 0 gm TOP DAILY [facility] Last Admin: 04/28/17 09:20 Dose: 1 applic Pantoprazole Sodium (Protonix Ec Tab) 40 mg PO ACB [facility] Last Admin: 04/28/17 08:08 Dose: 40 mg Polyethylene Glycol (Miralax) 17 gm PO TID [facility] Last Admin: 04/27/17 14:10 Dose: Not Given - Labs Labs: 04/28/17 05:23 04/28/17 05:23 PT 13.4 SECONDS (9.4-12.5) H 04/25/17 06:30 INR 1.16 (0.93-1.08) H 04/25/17 06:30 APTT 35.8 Seconds (25.1-36.5) 04/25/17 06:30 - Constitutional Appears: No Acute Distress - Head Exam Head Exam: NORMAL INSPECTION - Neurological Exam Neurological Exam: Awake Neuro motor strength exam: Left Upper Extremity: 3, Right Upper Extremity: 3, Left Lower Extremity: 2/1, Right Lower Extremity: 2/1 Additional comments: He is responsive to tactile stimuli, but unable to participate during assessment. Assessment and Plan (1) Seizure Assessment & Plan: Case discussed with Dr. Sosa, continue all current medical, physical and occupational therapies. Recommend EEG to evaluate seizure. Please refer to primary physician regarding his electrolyte abnormalities and poor appetite. Status: Acute
--- NOTE | 2017-04-28 16:04 | US ---
PROCEDURE: Lower extremity JAH exam HISTORY: Peripheral vascular disease with ischemic pain. PHYSICIAN(S): Chicho Trujillo MD. FINDINGS: The resting JAH's are normal: right, 1.45and left, 1.34. The high thigh pressures and waveforms are relatively normal. The calf PVR waveforms augment normally. No significant gradients are noted across the thighs. The ankle and metatarsal waveforms are relatively normal and symmetric. No significant pressure gradients are noted across the lower legs. IMPRESSION: 1. Relatively normal JAH and PVR examination at rest.
--- NOTE | 2017-04-28 17:23 | CP.PCM.PN ---
Subjective - Date & Time of Evaluation Date of Evaluation: 04/28/17 Time of Evaluation: 12:50 - Subjective Subjective: No abdominal pain , no fevers. Objective - Vital Signs/Intake and Output Vital Signs (last 24 hours): Temp Pulse Resp BP Pulse Ox 99.1 F 91 H 20 128/75 90 L 04/28/17 08:00 04/28/17 08:00 04/28/17 08:00 04/28/17 08:00 04/28/17 08:00 Intake and Output: 04/28/17 04/28/17 06:59 18:59 Intake Total 120 Output Total 1000 Balance -880 - Medications Medications: Current Medications Amylase (Pancrease 70381 U-5000 U-79699 U) 5,000 unit PO ACTID [facility] Last Admin: 04/28/17 08:08 Dose: 5,000 unit Doxycycline Hyclate (Doryx) 100 mg PO Q12 [facility] PRN Reason: Protocol Stop: 05/06/17 22:01 Last Admin: 04/28/17 09:20 Dose: 100 mg Hydromorphone HCl (Dilaudid) 1 mg IVP Q6H PRN PRN Reason: Pain, severe (8-10) Last Admin: 04/28/17 09:19 Dose: 1 mg Meropenem (Merrem Iv 1 Gm Premix) 50 mls @ 200 mls/hr IVPB Q8 [facility] Last Admin: 04/28/17 05:32 Dose: 200 mls/hr Daptomycin 420 mg/ Sodium (Chloride) 100 mls @ 200 mls/hr IV Q24H [facility] Stop: 05/25/17 19:31 Last Admin: 04/27/17 22:31 Dose: 200 mls/hr Insulin Human Regular (Humulin R Low) 0 units SC ACHS [facility] PRN Reason: Protocol Last Admin: 04/28/17 08:00 Dose: Not Given Levetiracetam (Keppra) 250 mg PO BID [facility] Last Admin: 04/28/17 09:21 Dose: 250 mg Mupirocin (Bactroban Ointment) 0 gm TOP DAILY [facility] Last Admin: 04/28/17 09:20 Dose: 1 applic Pantoprazole Sodium (Protonix Ec Tab) 40 mg PO ACB [facility] Last Admin: 04/28/17 08:08 Dose: 40 mg Polyethylene Glycol (Miralax) 17 gm PO TID [facility] Last Admin: 04/27/17 14:10 Dose: Not Given - Labs Labs: 04/28/17 05:23 04/28/17 05:23 PT 13.4 SECONDS (9.4-12.5) H 04/25/17 06:30 INR 1.16 (0.93-1.08) H 04/25/17 06:30 APTT 35.8 Seconds (25.1-36.5) 04/25/17 06:30 - Constitutional Appears: Non-toxic - Head Exam Head Exam: NORMAL INSPECTION - ENT Exam ENT Exam: Mucous Membranes Moist - Neck Exam Neck Exam: absent: Meningismus - Respiratory Exam Respiratory Exam: Decreased Breath Sounds - Cardiovascular Exam Cardiovascular Exam: +S1, +S2 - GI/Abdominal Exam GI & Abdominal Exam: Soft. absent: Tenderness Assessment and Plan - Assessment and Plan (Free Text) Plan: Assessment severe sepsis due to MRSA bacteremia R/O biliary stent infection; new onset increased leukocytosis R/O new onset sepsis history of severe sepsis due to methicillin-resistant Staph aureus bacteremia, R /O due to bilateral lower extremity cellulitis R/O biliary tree infection chronic CHF in this patient with CAD pancreatic head mass, S/P EUS and percutaneous drain placement S/P biliary stent placement DM recent left hip fracture S/P surgery Plan continue Daptomycin, Doxycycline and Merrem pending CT A/P; should be on 2-3 weeks of Daptomycin overall prognosis is poor
--- NOTE | 2017-04-28 18:08 | PN ---
DATE: 04/28/2017 SUBJECTIVE: This is a 76-year-old male, seen at bedside for a left heel ulcer and a right heel skin tear. The patient is seen with his own dressings clean, dry, and intact. He has offloading boots in place and he is sleeping comfortably. His vital signs show a temperature today of 99.1, his pulse is 91, blood pressure is 128/75, and his oxygen is at 90. His medications are noted on the MAR. He is presenting on daptomycin and doxycycline as per Infectious Disease. Labs show a white blood cell count of 23.6. His H and H are 9.4 and 28.3. His BUN and creatinine are 45 and 1.6. His glucose is 144. His liver functions are also elevated and his total protein and albumin are decreased. His microbiology from the wound shows a gram-positive cocci, which is preliminary and no sensitivities are yet available. The patient does have Infectious Disease on board and Infectious Disease is treating him for a sepsis secondary to MRSA bacteremia. The patient did have a foot x-ray done, which shows the large exostosis from a Chantal deformity, but no signs of osteomyelitis. The patient also had an extremity ultrasound done. The formal read is not available at this time. However, as soon as the computer brings it up, I will review it. Upon review, the patient's JAH shows 1.4 and 1.3 with some arteriosclerotic disease; however, the PVR waveforms are pretty decent bilateral possible SFA occlusion and some tibial disease; however, at this time both waveforms have amplitudes of greater than 19 mm. The patient's wound was reviewed. The wound has minimal drainage on the dressing. There is no cellulitis. There are 2 wounds on the left. There was a very small punctate wound on the medial aspect of the heel. This one does have a depth of approximately 0.3, but it does not probe to bone. There is no abscess. He also has a small DTI bruising on the Chantal's itself with an abrasion, but again no signs of infection. The right heel has a skin tear. The skin tear is not infected. There is no signs of infection of noted on either of the feet. ASSESSMENT: Skin tear to the right, stage III on the left. PLAN OF TREATMENT: To continue with local care, continue offloading and he will be seen in followup. Khadra Curry DPM
--- NOTE | 2017-04-29 00:12 | PN ---
DATE: 04/28/2017 SUBJECTIVE: The patient was seen this morning in room 572, bed 1 with his daughter at the bedside. He is being transferred to a stretcher for a trip to ultrasound. He is awake, alert, does not look toxic or septic in appearance. He does report some abdominal pain. I spoke with his daughter at length regarding his overall condition. She is aware of the severity of his illness and the tumor increasing in size and also questions on the next best option. She is asking Dr. Bautista to consult. Case was discussed at length with Dr. Bradley and nurse practitioner, Elisa. Notes appreciated. Labs reviewed. We will continue with the medications, look for abscess and the etiology of the sudden and dramatic spike of his white blood cell count. Rehan Jeff MD
[2017-04-29] MEDS ORDERED: Meropenem 1g/NS 100mL IVPB 1 GM/100 ML PIGGYBACK IVPB SCH (05:10)
[2017-04-29 06:27] LABS: HEMOGLOBIN 9.5 g/dL (14.0-18.0); MEAN CELL VOLUME 84.5 fl (80.0-105.0); MEAN CORPUSCULAR HEMOGLOBIN 27.3 pg (25.0-35.0); MEAN CORPUSCULAR HGB CONC 32.3 g/dl (31.0-37.0); MEAN PLATELET VOLUME 10.1 fl (7.0-11.0); RBC 3.48 10^6/uL (3.5-6.1); RED CELL DISTRIBUTION WIDTH 16.1 % (11.5-14.5); WHITE BLOOD COUNT 17.6 10^3/ul (4.5-11.0)
[2017-04-29 06:36] LABS: CALCIUM 8.4 mg/dL (8.4-10.5)
[2017-04-29] MEDS: Pantoprazole 40 mg EC Tab PO SCH (07:55)
[2017-04-29] MEDS: Amylase/Lipase/Protease 5,000 Units ECC PO SCH ×3 (07:55→17:06)
[2017-04-29] MEDS: Insulin Reg-LOW-Coverage SC SCH ×4 (08:07→21:16)
--- NOTE | 2017-04-29 08:12 | CP.PCM.PN ---
Subjective - Date & Time of Evaluation Date of Evaluation: 04/29/17 Time of Evaluation: 08:09 - Subjective Subjective: Mr. Ibarra was seen and examined at the bedside. He is more alert, oriented to place. He is able to verbalize his needs and feeds himself independently. He follows commands. He denies any headache, dizziness, numbness.He remains on contact isolation for MRSA of the blood. There was no untoward events overnight. Objective - Vital Signs/Intake and Output Vital Signs (last 24 hours): Temp Pulse Resp BP Pulse Ox 98.4 F 89 20 134/87 96 04/29/17 00:00 04/29/17 00:00 04/29/17 00:00 04/29/17 00:00 04/29/17 00:00 Intake and Output: 04/29/17 04/29/17 06:59 18:59 Intake Total 740 Output Total 1000 Balance -260 - Medications Medications: Current Medications Amylase (Pancrease 95970 U-5000 U-41291 U) 5,000 unit PO ACTID [facility] Last Admin: 04/29/17 07:55 Dose: 5,000 unit Doxycycline Hyclate (Doryx) 100 mg PO Q12 [facility] PRN Reason: Protocol Stop: 05/06/17 22:01 Last Admin: 04/28/17 22:25 Dose: 100 mg Hydromorphone HCl (Dilaudid) 1 mg IVP Q6H PRN PRN Reason: Pain, severe (8-10) Last Admin: 04/28/17 22:25 Dose: 1 mg Daptomycin 420 mg/ Sodium (Chloride) 100 mls @ 200 mls/hr IV Q24H [facility] Stop: 05/25/17 19:31 Last Admin: 04/28/17 22:25 Dose: 200 mls/hr Meropenem/Sodium Chloride (Meropenem 1g/Ns 100ml Ivpb) 1 gm in 100 mls @ 200 mls/hr IVPB Q8 [facility] Last Admin: 04/29/17 05:36 Dose: 200 mls/hr Insulin Human Regular (Humulin R Low) 0 units SC ACHS [facility] PRN Reason: Protocol Last Admin: 04/29/17 08:07 Dose: Not Given Levetiracetam (Keppra) 250 mg PO BID [facility] Last Admin: 04/28/17 19:09 Dose: 250 mg Mupirocin (Bactroban Ointment) 0 gm TOP DAILY [facility] Last Admin: 04/28/17 09:20 Dose: 1 applic Pantoprazole Sodium (Protonix Ec Tab) 40 mg PO ACB [facility] Last Admin: 04/29/17 07:55 Dose: 40 mg Polyethylene Glycol (Miralax) 17 gm PO TID [facility] Last Admin: 04/27/17 14:10 Dose: Not Given - Labs Labs: 04/29/17 05:45 04/29/17 05:45 PT 13.4 SECONDS (9.4-12.5) H 04/25/17 06:30 INR 1.16 (0.93-1.08) H 04/25/17 06:30 APTT 35.8 Seconds (25.1-36.5) 04/25/17 06:30 - Constitutional Appears: No Acute Distress - Head Exam Head Exam: NORMAL INSPECTION - Neurological Exam Neurological Exam: Alert, Awake Neuro motor strength exam: Left Upper Extremity: 5, Right Upper Extremity: 5, Left Lower Extremity: 4, Right Lower Extremity: 4 Additional comments: Neurological unchanged from previous examination. Assessment and Plan (1) Seizure Assessment & Plan: Case discussed with Dr. Sosa, continue all current medical, physical, and occupational therapies. Repeat EEG pending. Status: Acute
[2017-04-29 10:18] LABS: ALB/GLOB RATIO 0.7 (1.1-1.8); ALBUMIN 2.3 g/dL (3.0-4.8); BILIRUBIN,DIRECT 0.6 mg/dL (0.0-0.4)
[2017-04-29] MEDS: POLYETHYLENE GLYCOL 3350 17 GM/Dose PACKET PO SCH (12:03)
--- NOTE | 2017-04-29 12:52 | PCM.EEG ---
Electroencephalogram Report - Electroencephalogram Report Procedure Date: 04/29/17 Interpretation: Indication: Seizure. Medications were reviewed. Technical: This is a digitally recorded electroencephalogram. The international 10-20 electrode placement system is used for scalp electrode placement. Eighteen channels of scalp EEG are recorded Another channel was used for for ECG. The data are stored digitally and reviewed in reformatted montages for optimal display. Background: 9 to 10 hertz alpha activity was seen. Maximal over the posterior head region. These activities are symmetric on both sides. They attenuated with eye opening. Small amount of beta activities are seen. Focal abnormality: Intermittent focal slowing was seen. This was mostly seen over the right frontal region. Impression: This EEG is abnormal. Some focal slowing was seen, suggestive of a focal abnormality. Clinical correlation is needed.
--- NOTE | 2017-04-29 12:55 | CP.PCM.CON ---
History of Present Illness - History of Present Illness History of Present Illness: Consult Note for Dr. Bautista 76 y/o M with past medical history of Pancreatic Adenocarcinoma, left hip fracture s/p repair with ALKA [place], and CAD s/p triple CABG initially presented to the hospital for new onset seizures. Patient had multiple head CT's which showed no acute pathology. Patient was placed on Keppra for seizures. Patient also evaluated by GI, who recommended patient have a billiary stent placed. GI was unable to perform procedure, but the procedure was performed by IR. Patient was also found to have MRSA bacteremia and started on antibiotics. Patient is being evaluated today for his history of pancreatic cancer. Patient has been very lethargic over the last several days as per daughter at bedside. Patient does complain of diffuse abdominal pain and lower extremity pain. Denies chest pain, shortness of breath, nausea, vomiting, diarrhea, fever, chills. PMH: Pancreatic Adenocarcinoma, left hip fracture s/p repair with ALKA [place], and CAD s/p triple CABG PSH: Triple CABG Family History: Noncontributory Social History: Former smoker, occasional alcoholl use, and denies any illicit drug use Allergies: NKDA Home Medications: Reviewed, as per MAR Review of Systems - Review of Systems Review of Systems: 12 point ROS as per HPI, otherwise negative. Past Patient History - Infectious Disease Hx of Infectious Diseases: None - Tetanus Immunizations Tetanus Immunization: Unknown - Past Social History Smoking Status: Current Some Days Smoker - CARDIAC Hx Pacemaker: No - PULMONARY Hx Respiratory Disorders: No - NEUROLOGICAL Hx Neurological Disorder: No - HEENT Hx HEENT Problems: No - RENAL Hx Chronic Kidney Disease: No - ENDOCRINE/METABOLIC Hx Diabetes Mellitus Type 2: Yes - HEMATOLOGICAL/ONCOLOGICAL Hx Blood Transfusions: No Hx Blood Transfusion Reaction: No - INTEGUMENTARY Hx Dermatological Problems: No Other/Comment: pancreatic Cancer 12/2016 - MUSCULOSKELETAL/RHEUMATOLOGICAL Hx Falls: Yes - GASTROINTESTINAL Hx Gastrointestinal Disorders: No - GENITOURINARY/GYNECOLOGICAL Hx Genitourinary Disorders: No Other/Comment: pancreatic ca - PSYCHIATRIC Hx Psychophysiologic Disorder: No Hx Depression: No Hx Emotional Abuse: No Hx Physical Abuse: No Hx Substance Use: No - SURGICAL HISTORY Hx Surgeries: Yes - ANESTHESIA Hx Anesthesia Reactions: No Hx Malignant Hyperthermia: No Meds Allergies/Adverse Reactions: Allergies Allergy/AdvReac Type Severity Reaction Status Date / Time No Known Allergies Allergy Verified 04/16/17 16:48 - Medications Medications: Current Medications Amylase (Pancrease 92285 U-5000 U-55170 U) 5,000 unit PO ACTID [facility] Last Admin: 04/29/17 12:03 Dose: 5,000 unit Doxycycline Hyclate (Doryx) 100 mg PO Q12 [facility] PRN Reason: Protocol Stop: 05/06/17 22:01 Last Admin: 04/29/17 09:09 Dose: 100 mg Hydromorphone HCl (Dilaudid) 1 mg IVP Q6H PRN PRN Reason: Pain, severe (8-10) Last Admin: 04/29/17 09:07 Dose: 1 mg Daptomycin 420 mg/ Sodium (Chloride) 100 mls @ 200 mls/hr IV Q24H [facility] Stop: 05/25/17 19:31 Last Admin: 04/28/17 22:25 Dose: 200 mls/hr Meropenem/Sodium Chloride (Meropenem 1g/Ns 100ml Ivpb) 1 gm in 100 mls @ 200 mls/hr IVPB Q12 [facility] Insulin Human Regular (Humulin R Low) 0 units SC ACHS [facility] PRN Reason: Protocol Last Admin: 04/29/17 12:26 Dose: Not Given Levetiracetam (Keppra) 250 mg PO BID [facility] Last Admin: 04/29/17 09:09 Dose: 250 mg Mupirocin (Bactroban Ointment) 0 gm TOP DAILY [facility] Last Admin: 04/29/17 09:09 Dose: 1 applic Pantoprazole Sodium (Protonix Ec Tab) 40 mg PO ACB [facility] Last Admin: 04/29/17 07:55 Dose: 40 mg Polyethylene Glycol (Miralax) 17 gm PO DAILY [facility] Last Admin: 04/29/17 12:03 Dose: 17 gm Physical Exam - Constitutional Appears: No Acute Distress Additional comments: Lethargic - Head Exam Head Exam: ATRAUMATIC, NORMAL INSPECTION, NORMOCEPHALIC - ENT Exam ENT Exam: Mucous Membranes Moist - Neck Exam Neck exam: Positive for: Normal Inspection. Negative for: Lymphadenopathy - Respiratory Exam Respiratory Exam: Clear to Auscultation Bilateral, NORMAL BREATHING PATTERN - Cardiovascular Exam Cardiovascular Exam: RRR, +S1, +S2 - GI/Abdominal Exam GI & Abdominal Exam: Normal Bowel Sounds, Soft, Tenderness (Diffuse abdominal pain). absent: Distended, Guarding, Rebound - Extremities Exam Extremities exam: Positive for: normal inspection. Negative for: calf tenderness, pedal edema - Neurological Exam Neurological exam: Alert, CN II-XII Intact, Oriented x3 - Psychiatric Exam Psychiatric exam: Normal Affect, Normal Mood - Skin Skin Exam: Intact, Normal Color, Warm Results - Vital Signs Recent Vital Signs: Last Vital Signs Temp 99.7 F H 04/29/17 08:17 Pulse 89 04/29/17 08:17 Resp 20 04/29/17 08:17 BP 141/88 04/29/17 08:17 Pulse Ox 94 L 04/29/17 08:17 - Labs Result Diagrams: 04/29/17 05:45 04/29/17 05:45 Labs: Laboratory Results - last 24 hr 04/28/17 04/28/17 04/29/17 16:07 20:49 05:30 WBC RBC Hgb Hct MCV MCH MCHC RDW Plt Count MPV Sodium Potassium Chloride Carbon Dioxide Anion Gap BUN Creatinine Est GFR ( Amer) Est GFR (Non-Af Amer) POC Glucose (mg/dL) 204 H 112 H Random Glucose Calcium Total Bilirubin 0.6 Direct Bilirubin 0.6 H AST 40 ALT 67 H Alkaline Phosphatase 336 H Total Protein 5.7 L Albumin 2.3 L Globulin 3.4 Albumin/Globulin Ratio 0.7 L 04/29/17 04/29/17 05:45 05:45 WBC 17.6 H D RBC 3.48 L Hgb 9.5 L Hct 29.4 L MCV 84.5 MCH 27.3 MCHC 32.3 RDW 16.1 H Plt Count 319 MPV 10.1 Sodium 135 Potassium 4.0 Chloride 101 Carbon Dioxide 25 Anion Gap 13 BUN 49 H Creatinine 1.4 Est GFR ( Amer) 60 Est GFR (Non-Af Amer) 49 POC Glucose (mg/dL) Random Glucose 106 Calcium 8.4 Total Bilirubin Direct Bilirubin AST ALT Alkaline Phosphatase Total Protein Albumin Globulin Albumin/Globulin Ratio Assessment & Plan - Assessment and Plan (Free Text) Plan: 76 y/o M with past medical history of Pancreatic Adenocarcinoma, left hip fracture s/p repair with Dr. Benítez, DM2, and CAD s/p triple CABG presents with history of pancreatic adenocarcinoma. Patient did not follow up from last admission due to hip fracture. Patient may need a celiac plexus block due to severe abdominal pain, likely from pancreatic cancer. If patient does have the presence of ascites, he would benefit from a therapeutic paracentesis. We will consult IR to determine if a paracentesis is appropriate. We will also evaluate the need for an MRCP to reevaluate the pancreas. CT abdomen/pelvis on admission did not reveal much information about the pancreas. We will continue to follow closely. Plan discussed with Dr. Bautista. See, PGY-2
--- NOTE | 2017-04-29 15:14 | CP.PCM.PN ---
Subjective - Date & Time of Evaluation Date of Evaluation: 04/29/17 Time of Evaluation: 13:25 - Subjective Subjective: Comfortable in bed, no fevers, not in distress. Objective - Vital Signs/Intake and Output Vital Signs (last 24 hours): Temp Pulse Resp BP Pulse Ox 99.7 F H 89 20 141/88 94 L 04/29/17 08:17 04/29/17 08:17 04/29/17 08:17 04/29/17 08:17 04/29/17 08:17 Intake and Output: 04/29/17 04/29/17 06:59 18:59 Intake Total 740 Output Total 1000 Balance -260 - Medications Medications: Current Medications Amylase (Pancrease 31711 U-5000 U-35724 U) 5,000 unit PO ACTID [facility] Last Admin: 04/29/17 07:55 Dose: 5,000 unit Doxycycline Hyclate (Doryx) 100 mg PO Q12 [facility] PRN Reason: Protocol Stop: 05/06/17 22:01 Last Admin: 04/29/17 09:09 Dose: 100 mg Hydromorphone HCl (Dilaudid) 1 mg IVP Q6H PRN PRN Reason: Pain, severe (8-10) Last Admin: 04/29/17 09:07 Dose: 1 mg Daptomycin 420 mg/ Sodium (Chloride) 100 mls @ 200 mls/hr IV Q24H [facility] Stop: 05/25/17 19:31 Last Admin: 04/28/17 22:25 Dose: 200 mls/hr Meropenem/Sodium Chloride (Meropenem 1g/Ns 100ml Ivpb) 1 gm in 100 mls @ 200 mls/hr IVPB Q8 [facility] Last Admin: 04/29/17 05:36 Dose: 200 mls/hr Insulin Human Regular (Humulin R Low) 0 units SC ACHS [facility] PRN Reason: Protocol Last Admin: 04/29/17 08:07 Dose: Not Given Levetiracetam (Keppra) 250 mg PO BID [facility] Last Admin: 04/29/17 09:09 Dose: 250 mg Mupirocin (Bactroban Ointment) 0 gm TOP DAILY [facility] Last Admin: 04/29/17 09:09 Dose: 1 applic Pantoprazole Sodium (Protonix Ec Tab) 40 mg PO ACB [facility] Last Admin: 04/29/17 07:55 Dose: 40 mg Polyethylene Glycol (Miralax) 17 gm PO DAILY [facility] - Labs Labs: 04/29/17 05:45 04/29/17 05:45 PT 13.4 SECONDS (9.4-12.5) H 04/25/17 06:30 INR 1.16 (0.93-1.08) H 04/25/17 06:30 APTT 35.8 Seconds (25.1-36.5) 04/25/17 06:30 - Constitutional Appears: Chronically Ill - Head Exam Head Exam: NORMAL INSPECTION - Neck Exam Neck Exam: absent: Meningismus - Respiratory Exam Respiratory Exam: Decreased Breath Sounds - Cardiovascular Exam Cardiovascular Exam: +S1, +S2 - GI/Abdominal Exam GI & Abdominal Exam: Soft. absent: Tenderness Assessment and Plan - Assessment and Plan (Free Text) Plan: Assessment severe sepsis due to MRSA bacteremia R/O biliary stent infection; new onset increased leukocytosis R/O new onset sepsis from bilateral HCAP history of severe sepsis due to methicillin-resistant Staph aureus bacteremia, R /O due to bilateral lower extremity cellulitis R/O biliary tree infection chronic CHF in this patient with CAD pancreatic head mass, S/P EUS and percutaneous drain placement S/P biliary stent placement DM recent left hip fracture S/P surgery Plan continue Daptomycin, Doxycycline and Merrem (day 2); CT A/P showing bibasilar infiltrates; should be on 2-3 weeks of Daptomycin overall prognosis is poor
--- NOTE | 2017-04-29 16:48 | CP.PCM.PN ---
<Lesli Bellamy - Last Filed: 04/29/17 16:45> Subjective - Date & Time of Evaluation Date of Evaluation: 04/29/17 Time of Evaluation: 16:45 - Subjective Subjective: 76 y/o male seen at bedside for left heel pressure ulcerations. Patient is AAOx3 and is in NAD. Pt accompanied by family at time of visit. Admits to pain in the back of the left foot, especially when anything rubs against it. Patient admits that he does not like wearing the boots and takes them off. Denies F/C/N/ V/CP/SOB at present. Objective - Vital Signs/Intake and Output Vital Signs (last 24 hours): Temp Pulse Resp BP Pulse Ox 99.7 F H 89 20 141/88 94 L 04/29/17 08:17 04/29/17 08:17 04/29/17 08:17 04/29/17 08:17 04/29/17 08:17 Intake and Output: 04/29/17 04/29/17 06:59 18:59 Intake Total 740 600 Output Total 1000 900 Balance -260 -300 - Medications Medications: Current Medications Amylase (Pancrease 90730 U-5000 U-94333 U) 5,000 unit PO ACTID [facility] Last Admin: 04/29/17 12:03 Dose: 5,000 unit Doxycycline Hyclate (Doryx) 100 mg PO Q12 [facility] PRN Reason: Protocol Stop: 05/06/17 22:01 Last Admin: 04/29/17 09:09 Dose: 100 mg Hydromorphone HCl (Dilaudid) 1 mg IVP Q6H PRN PRN Reason: Pain, severe (8-10) Last Admin: 04/29/17 09:07 Dose: 1 mg Daptomycin 420 mg/ Sodium (Chloride) 100 mls @ 200 mls/hr IV Q24H [facility] Stop: 05/25/17 19:31 Last Admin: 04/28/17 22:25 Dose: 200 mls/hr Meropenem/Sodium Chloride (Meropenem 1g/Ns 100ml Ivpb) 1 gm in 100 mls @ 200 mls/hr IVPB Q12 [facility] Insulin Human Regular (Humulin R Low) 0 units SC ACHS [facility] PRN Reason: Protocol Last Admin: 04/29/17 12:26 Dose: Not Given Levetiracetam (Keppra) 250 mg PO BID [facility] Last Admin: 04/29/17 09:09 Dose: 250 mg Mupirocin (Bactroban Ointment) 0 gm TOP DAILY [facility] Last Admin: 04/29/17 09:09 Dose: 1 applic Pantoprazole Sodium (Protonix Ec Tab) 40 mg PO ACB [facility] Last Admin: 04/29/17 07:55 Dose: 40 mg Polyethylene Glycol (Miralax) 17 gm PO DAILY [facility] Last Admin: 04/29/17 12:03 Dose: 17 gm - Labs Labs: 04/29/17 05:45 04/29/17 05:45 PT 13.4 SECONDS (9.4-12.5) H 04/25/17 06:30 INR 1.16 (0.93-1.08) H 04/25/17 06:30 APTT 35.8 Seconds (25.1-36.5) 04/25/17 06:30 - Constitutional Appears: Well, Non-toxic, No Acute Distress - Extremities Exam Additional comments: Lower extremity focused exam: Vasc: DP/PT pulses palpable 2/4. Temperature gradient warm to cool. CFT < 3 sec to all digits. No pedal edema noted. Derm: Two posterior heel ulcerations noted to left foot. Medial ulceration measures approx. 0.7cm x 0.5cm x 0.4cm with fibrotic base. Mild tj wound erythema. No maceration noted to wound edges. No fluctuance, purulent drainage, tunneling, undermining or malodor. Second ulceration noted approx 1 cm lateral to above mentioned ulcer. Measures approx. 1.0 cm x 1.1cm x 0.1cm with fibrogranular wound base. No fluctuance, purulence, malodor, tunneling or undermining. Additional superficial hyperkeratotic scab noted to posterior aspect of right heel, stable. Neuro: Protective sensation grossly intact Ortho: Mild tenderness to palpation of left posterior heel ulcerations. Chantal s deformity noted to posterior left heel at site of ulcerations. - Neurological Exam Neurological Exam: Alert, Awake, Oriented x3 - Psychiatric Exam Psychiatric exam: Normal Affect, Normal Mood Assessment and Plan - Assessment and Plan (Free Text) Assessment: 76 y/o male with left heel diabetic ulcerations worsened by pressure/bed bound status Plan: Pt seen and evaluated at bedside with attending Dr. 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 Podiatry will continue to follow patient while in house <Fede Geller - Last Filed: 04/30/17 07:05> Objective - Vital Signs/Intake and Output Vital Signs (last 24 hours): Temp Pulse Resp BP Pulse Ox 97.3 F L 75 19 153/94 H 97 04/30/17 04:30 04/30/17 04:30 04/30/17 04:30 04/30/17 04:30 04/30/17 04:30 Intake and Output: 04/30/17 04/30/17 06:59 18:59 Intake Total 660 Output Total 1080 Balance -420 - Medications Medications: Current Medications Amylase (Pancrease 29432 U-5000 U-85574 U) 5,000 unit PO ACTID [facility] Last Admin: 04/29/17 17:06 Dose: 5,000 unit Doxycycline Hyclate (Doryx) 100 mg PO Q12 [facility] PRN Reason: Protocol Stop: 05/06/17 22:01 Last Admin: 04/29/17 21:48 Dose: 100 mg Hydromorphone HCl (Dilaudid) 1 mg IVP Q6H PRN PRN Reason: Pain, severe (8-10) Last Admin: 04/29/17 09:07 Dose: 1 mg Daptomycin 420 mg/ Sodium (Chloride) 100 mls @ 200 mls/hr IV Q24H [facility] Stop: 05/25/17 19:31 Last Admin: 04/29/17 21:48 Dose: 200 mls/hr Meropenem/Sodium Chloride (Meropenem 1g/Ns 100ml Ivpb) 1 gm in 100 mls @ 200 mls/hr IVPB Q12 [facility] Last Admin: 04/29/17 22:33 Dose: 200 mls/hr Insulin Human Regular (Humulin R Low) 0 units SC ACHS [facility] PRN Reason: Protocol Last Admin: 04/29/17 21:16 Dose: Not Given Levetiracetam (Keppra) 250 mg PO BID [facility] Last Admin: 04/29/17 17:06 Dose: 250 mg Mupirocin (Bactroban Ointment) 0 gm TOP DAILY [facility] Last Admin: 04/29/17 09:09 Dose: 1 applic Oxycodone/Acetaminophen (Percocet 5/325 Mg Tab) 1 tab PO Q6H PRN PRN Reason: Pain, moderate (4-7) Stop: 05/02/17 19:21 Last Admin: 04/30/17 06:43 Dose: 1 tab Pantoprazole Sodium (Protonix Ec Tab) 40 mg PO ACB [facility] Last Admin: 04/29/17 07:55 Dose: 40 mg Polyethylene Glycol (Miralax) 17 gm PO DAILY [facility] Last Admin: 04/29/17 12:03 Dose: 17 gm - Labs Labs: 04/29/17 05:45 04/29/17 05:45 PT 13.4 SECONDS (9.4-12.5) H 04/25/17 06:30 INR 1.16 (0.93-1.08) H 04/25/17 06:30 APTT 35.8 Seconds (25.1-36.5) 04/25/17 06:30 Attending/Attestation - Attestation I have personally seen and examined this patient.: Yes I have fully participated in the care of the patient.: Yes I have reviewed all pertinent clinical information, including history, physical exam and plan: Yes
--- NOTE | 2017-04-29 17:01 | CP.PCM.PN ---
<Elisa Campbell - Last Filed: 04/29/17 17:00> Subjective - Date & Time of Evaluation Date of Evaluation: 04/29/17 Time of Evaluation: 11:05 - Subjective Subjective: Patient reported to have no BM, patient going off to EEG, seen and examined earlier today. Daughter at the bedside. Patient is awake and alert still has some abdominal pain but in no acute distress or increase in severity. Biliary drain in place and draining dark green bilious fluid. Patient denies nausea, vomiting, fever or chills. Objective - Vital Signs/Intake and Output Vital Signs (last 24 hours): Temp Pulse Resp BP Pulse Ox 99.7 F H 89 20 141/88 94 L 04/29/17 08:17 04/29/17 08:17 04/29/17 08:17 04/29/17 08:17 04/29/17 08:17 Intake and Output: 04/29/17 04/29/17 06:59 18:59 Intake Total 740 600 Output Total 1000 900 Balance -260 -300 - Medications Medications: Current Medications Amylase (Pancrease 28334 U-5000 U-18097 U) 5,000 unit PO ACTID [facility] Last Admin: 04/29/17 12:03 Dose: 5,000 unit Doxycycline Hyclate (Doryx) 100 mg PO Q12 [facility] PRN Reason: Protocol Stop: 05/06/17 22:01 Last Admin: 04/29/17 09:09 Dose: 100 mg Hydromorphone HCl (Dilaudid) 1 mg IVP Q6H PRN PRN Reason: Pain, severe (8-10) Last Admin: 04/29/17 09:07 Dose: 1 mg Daptomycin 420 mg/ Sodium (Chloride) 100 mls @ 200 mls/hr IV Q24H [facility] Stop: 05/25/17 19:31 Last Admin: 04/28/17 22:25 Dose: 200 mls/hr Meropenem/Sodium Chloride (Meropenem 1g/Ns 100ml Ivpb) 1 gm in 100 mls @ 200 mls/hr IVPB Q12 [facility] Insulin Human Regular (Humulin R Low) 0 units SC ACHS [facility] PRN Reason: Protocol Last Admin: 04/29/17 12:26 Dose: Not Given Levetiracetam (Keppra) 250 mg PO BID [facility] Last Admin: 04/29/17 09:09 Dose: 250 mg Mupirocin (Bactroban Ointment) 0 gm TOP DAILY [facility] Last Admin: 04/29/17 09:09 Dose: 1 applic Pantoprazole Sodium (Protonix Ec Tab) 40 mg PO ACB [facility] Last Admin: 04/29/17 07:55 Dose: 40 mg Polyethylene Glycol (Miralax) 17 gm PO DAILY [facility] Last Admin: 04/29/17 12:03 Dose: 17 gm - Labs Labs: 04/29/17 05:45 04/29/17 05:45 PT 13.4 SECONDS (9.4-12.5) H 04/25/17 06:30 INR 1.16 (0.93-1.08) H 04/25/17 06:30 APTT 35.8 Seconds (25.1-36.5) 04/25/17 06:30 - Constitutional Appears: No Acute Distress - Eye Exam Eye Exam: Normal appearance. absent: Scleral icterus - ENT Exam ENT Exam: Mucous Membranes Moist - Respiratory Exam Respiratory Exam: NORMAL BREATHING PATTERN. absent: Respiratory Distress - Cardiovascular Exam Cardiovascular Exam: +S1, +S2 - GI/Abdominal Exam GI & Abdominal Exam: Soft, Tenderness, Normal Bowel Sounds. absent: Guarding, Rebound Additional comments: positive biliary drain, dressing is dry and intact. - Extremities Exam Extremities Exam: absent: Calf Tenderness, Pedal Edema - Neurological Exam Neurological Exam: Alert, Awake, Oriented x3 - Skin Skin Exam: Dry, Warm Assessment and Plan - Assessment and Plan (Free Text) Assessment: Assessment: Improving Leukocytosis/Sepsis, bacteremia Seizure Pancreatic cancer status post biliary stents, status post CT scan showing nonvisualization of the metallic stent, no on 04/25/ s/p PTC biliary drain Elevated LFT History of diabetes mellitus Plan: advance diet to heart healthy soft diet Miralax daily on Pancreatic enzymes prior to meals Continue IV antibiotics on Keppra on Heparin SQ pain mgt Monitor LFTs Continue GI prophylaxis Seen and discussed with Dr. Bradley. <Yomaira Bradley V - Last Filed: 04/29/17 22:55> Objective - Vital Signs/Intake and Output Vital Signs (last 24 hours): Temp Pulse Resp BP Pulse Ox 99.7 F H 89 20 141/88 94 L 04/29/17 08:17 04/29/17 08:17 04/29/17 08:17 04/29/17 08:17 04/29/17 08:17 Intake and Output: 04/29/17 04/30/17 18:59 06:59 Intake Total 600 420 Output Total 900 380 Balance -300 40 - Medications Medications: Current Medications Amylase (Pancrease 43640 U-5000 U-83993 U) 5,000 unit PO ACTID [facility] Last Admin: 04/29/17 17:06 Dose: 5,000 unit Doxycycline Hyclate (Doryx) 100 mg PO Q12 [facility] PRN Reason: Protocol Stop: 05/06/17 22:01 Last Admin: 04/29/17 21:48 Dose: 100 mg Hydromorphone HCl (Dilaudid) 1 mg IVP Q6H PRN PRN Reason: Pain, severe (8-10) Last Admin: 04/29/17 09:07 Dose: 1 mg Daptomycin 420 mg/ Sodium (Chloride) 100 mls @ 200 mls/hr IV Q24H [facility] Stop: 05/25/17 19:31 Last Admin: 04/29/17 21:48 Dose: 200 mls/hr Meropenem/Sodium Chloride (Meropenem 1g/Ns 100ml Ivpb) 1 gm in 100 mls @ 200 mls/hr IVPB Q12 [facility] Last Admin: 04/29/17 22:33 Dose: 200 mls/hr Insulin Human Regular (Humulin R Low) 0 units SC ACHS [facility] PRN Reason: Protocol Last Admin: 04/29/17 21:16 Dose: Not Given Levetiracetam (Keppra) 250 mg PO BID [facility] Last Admin: 04/29/17 17:06 Dose: 250 mg Mupirocin (Bactroban Ointment) 0 gm TOP DAILY [facility] Last Admin: 04/29/17 09:09 Dose: 1 applic Oxycodone/Acetaminophen (Percocet 5/325 Mg Tab) 1 tab PO Q6H PRN PRN Reason: Pain, moderate (4-7) Stop: 05/02/17 19:21 Last Admin: 04/29/17 19:58 Dose: 1 tab Pantoprazole Sodium (Protonix Ec Tab) 40 mg PO ACB [facility] Last Admin: 04/29/17 07:55 Dose: 40 mg Polyethylene Glycol (Miralax) 17 gm PO DAILY [facility] Last Admin: 04/29/17 12:03 Dose: 17 gm - Labs Labs: 04/29/17 05:45 04/29/17 05:45 PT 13.4 SECONDS (9.4-12.5) H 04/25/17 06:30 INR 1.16 (0.93-1.08) H 04/25/17 06:30 APTT 35.8 Seconds (25.1-36.5) 04/25/17 06:30 Attending/Attestation - Attestation I have personally seen and examined this patient.: Yes I have fully participated in the care of the patient.: Yes I have reviewed all pertinent clinical information, including history, physical exam and plan: Yes Notes (Text): This is an addendum to GI progress report dictated by Elisa Campbell APN.The patient was seen and examined earlier. Medical records, lab studies, imagings were reviewed. Last 24 hours events reviewed. Agreed with the above treatment plan as outlined in Elisa Campbell APN's notes the with the addition of the following 04/29/17 22:54
[2017-04-29] MEDS: Oxycodone/Acetaminophen 5/325 mg Tab PO PRN (19:58)
[2017-04-29] MEDS: Meropenem 1g/NS 100mL IVPB 1 GM/100 ML PIGGYBACK IVPB SCH (22:33)
[2017-04-30] MEDS: Oxycodone/Acetaminophen 5/325 mg Tab PO PRN (06:43)
[2017-04-30] MEDS: Insulin Reg-LOW-Coverage SC SCH ×4 (08:16→16:26)
[2017-04-30] MEDS: Pantoprazole 40 mg EC Tab PO SCH (08:18)
[2017-04-30] MEDS: Amylase/Lipase/Protease 5,000 Units ECC PO SCH ×3 (08:18→16:19)
[2017-04-30] MEDS: POLYETHYLENE GLYCOL 3350 17 GM/Dose PACKET PO SCH (09:36)
[2017-04-30] MEDS: Meropenem 1g/NS 100mL IVPB 1 GM/100 ML PIGGYBACK IVPB SCH (09:38)
--- NOTE | 2017-04-30 12:25 | PN ---
DATE: SUBJECTIVE: A 76-year-old male seen at bedside for continued evaluation and management of bilateral heel ulcerations. Patient does not have any complaints at this time. He denies fever, chills, nausea, vomiting or shortness of breath. He does not like wearing his protective boots and takes them off. I explained to the patient that his wounds will not heal if he does not have the boots on as this release the pressure; however, patient does not like them. Vital signs revealed a temperature of 97.5, pulse rate of 72, blood pressure of 131/81, respiratory rate of 20. LABORATORY FINDINGS: Reveal a white count of 17.6 down from 23.6 yesterday. Hemoglobin of 9.4, hematocrit of 29.4, platelet count of 319. Left foot culture reveals MRSA and coagulase-negative Staphylococcus aureus growth. OBJECTIVE: Weakly palpable pedal pulses noted bilaterally. Capillary filling time is delayed x10. No lower extremity edema noted bilaterally. Left heel presents with two posterior full-thickness ulcerations that measure approximately 1 cm x 1 cm x 0.2 cm each. The base of the ulcerations are primarily granular. There is noted to be some fibrotic tissue dispersed throughout. There is noted to be serous drainage. There is no purulence. Wounds do not probe to tendon or bone. No signs of cellulitis or ascending cellulitis. Right heel presents with resolving ulceration that has now formed the hyperkeratotic scab. There is noted to be no underlying purulence. The wound did not probe to tendon or bone. No signs of acute bacterial infection or cellulitic activity. ASSESSMENT: A 76-year-old diabetic male with resolved right heel ulcerations and current left heel ulceration, worsening due to noncompliance with offloading boot. PLAN: Patient was examined. The wounds were cleansed with normal sterile saline. Application of Bactroban and Optifoam dressing with a dry sterile dressing was applied to both heels. Once again, I spoke with Jemal regarding the need to wear his boots while in bed in an effort to keep pressure off his heels and allow the wounds to heal. He states he will wear them, but only when he feels like it. All radiographic evidence is negative for cortical erosion to suggest osteomyelitis. The patient will be seen and followed while in-house. Fede Geller DPM
[2017-05-01] MEDS: Meropenem 1g/NS 100mL IVPB 1 GM/100 ML PIGGYBACK IVPB SCH ×3 (00:15→21:33)
--- NOTE | 2017-05-01 02:28 | PN ---
DATE: 04/30/2016 SUBJECTIVE: The patient is seen and evaluated earlier today. The patient is comfortable, tolerating the diet. Complains of constipation. PHYSICAL EXAMINATION: VITAL SIGNS: Temperature is 97.1, blood pressure 142/94, pulse 78, respirations 20, O2 saturation 96%. HEENT: Atraumatic, anicteric. NECK: Supple. HEART: S1 and S2 heard. LUNGS: Bilateral air entry present, slightly reduced at the bases. ABDOMEN: Soft. The PTC catheter present, seen. EXTREMITIES: No cyanosis, no clubbing. LABORATORY DATA: No recent labs today. X-ray and labs are reviewed. IMPRESSION: This is a 76-year-old patient with locally advanced pancreatic cancer, admitted with severe sepsis, methicillin-resistant Staphylococcus aureus. The patient has a displaced metal stent. Repeat endoscopic retrograde cholangiopancreatography could not be done because of the increase in size of the pancreatic tumor infiltrating the duodenum. Subsequently, the patient underwent percutaneous transhepatic cholangiography and internal and external stent placement. The patient did have increased WBC count post procedure - may be secondary to the bacteremia, history of seizure disorder, diabetes mellitus, coronary artery disease. RECOMMENDATION: 1. Follow up of the hemoglobin, hematocrit. 2. Continue the antibiotics as per ID. 3. Oncologic followup and follow up for the electrolytes and LFTs. Thank you very much for allowing us to participate in the care of the patient. Yomaira Bradley MD
[2017-05-01] MEDS: Insulin Reg-LOW-Coverage SC SCH ×4 (02:54→17:37)
[2017-05-01] MEDS: Oxycodone/Acetaminophen 5/325 mg Tab PO PRN ×3 (06:29→18:40)
--- NOTE | 2017-05-01 08:27 | CP.PCM.PN ---
Subjective - Date & Time of Evaluation Date of Evaluation: 05/01/17 Time of Evaluation: 08:24 - Subjective Subjective: Mr. Ibarra was seen and examined at the bedside. He is alert, oriented. He was able to participate in a pleasant conversation. He is able to relay to staff the recent news ([employer] derailment). He denies any headache, dizziness, lightheadedness, seizure-like, blurred vision. He is able to follow simple commands. He remains on contact isolation due to MRSA. EEG showed abnormal with focal slowing.There was no untoward events overnight. Objective - Vital Signs/Intake and Output Vital Signs (last 24 hours): Temp Pulse Resp BP Pulse Ox 98.3 F 109 H 20 170/100 H 95 05/01/17 00:00 05/01/17 00:00 05/01/17 00:00 05/01/17 00:00 05/01/17 00:00 Intake and Output: 05/01/17 05/01/17 06:59 18:59 Intake Total 540 Output Total 2000 Balance -1460 - Medications Medications: Current Medications Amylase (Pancrease 67752 U-5000 U-97742 U) 5,000 unit PO ACTID [facility] Last Admin: 04/30/17 16:19 Dose: 5,000 unit Doxycycline Hyclate (Doryx) 100 mg PO Q12 [facility] PRN Reason: Protocol Stop: 05/06/17 22:01 Last Admin: 04/30/17 22:34 Dose: 100 mg Hydromorphone HCl (Dilaudid) 1 mg IVP Q6H PRN PRN Reason: Pain, severe (8-10) Last Admin: 04/30/17 22:38 Dose: 1 mg Daptomycin 420 mg/ Sodium (Chloride) 100 mls @ 200 mls/hr IV Q24H [facility] Stop: 05/25/17 19:31 Last Admin: 04/30/17 22:34 Dose: 200 mls/hr Meropenem/Sodium Chloride (Meropenem 1g/Ns 100ml Ivpb) 1 gm in 100 mls @ 200 mls/hr IVPB Q12 [facility] Last Admin: 05/01/17 00:15 Dose: 200 mls/hr Insulin Human Regular (Humulin R Low) 0 units SC ACHS [facility] PRN Reason: Protocol Last Admin: 05/01/17 02:54 Dose: Not Given Levetiracetam (Keppra) 250 mg PO BID [facility] Last Admin: 04/30/17 09:39 Dose: 250 mg Mupirocin (Bactroban Ointment) 0 gm TOP DAILY [facility] Last Admin: 04/30/17 09:33 Dose: Not Given Oxycodone/Acetaminophen (Percocet 5/325 Mg Tab) 1 tab PO Q6H PRN PRN Reason: Pain, moderate (4-7) Stop: 05/02/17 19:21 Last Admin: 05/01/17 06:29 Dose: 1 tab Pantoprazole Sodium (Protonix Ec Tab) 40 mg PO ACB [facility] Last Admin: 04/30/17 08:18 Dose: 40 mg Polyethylene Glycol (Miralax) 17 gm PO DAILY [facility] Last Admin: 04/30/17 09:36 Dose: 17 gm - Labs Labs: 04/29/17 05:45 04/29/17 05:45 PT 13.4 SECONDS (9.4-12.5) H 04/25/17 06:30 INR 1.16 (0.93-1.08) H 04/25/17 06:30 APTT 35.8 Seconds (25.1-36.5) 04/25/17 06:30 - Constitutional Appears: No Acute Distress - Head Exam Head Exam: NORMAL INSPECTION - Neurological Exam Neurological Exam: Alert, Awake Neuro motor strength exam: Left Upper Extremity: 5, Right Upper Extremity: 5, Left Lower Extremity: 4, Right Lower Extremity: 4 Additional comments: Neurological unchanged from previous examination. Assessment and Plan (1) Seizure Assessment & Plan: Case discussed with Dr. Sosa, continue all current medical, physical regimen. There is no new recommendations from neurology. Status: Acute
--- NOTE | 2017-05-01 08:47 | PN ---
DATE: 04/30/2017 SUBJECTIVE: Patient is in bed, in no acute distress. PHYSICAL EXAMINATION: VITAL SIGNS: Temperature is 98, blood pressure is140/90, respiratory rate of 20, and heart rate of 89. HEENT: Unremarkable. NECK: Supple. LUNGS: Decreased breath sounds. HEART: Normal S1 and S2. ABDOMEN: Soft, nontender. LABORATORY EXAMINATION: Reveals a white count of 17,600, hemoglobin of 9, platelets of 319. BUN of 49, creatinine of 1.4. Urinalysis is noted. Vancomycin trough is 18. Microbiology reveals the foot culture is MRSA, coagulase-negative staph. Stool for C. diff., antigen, and toxin is negative. REVIEW OF ORDERS: A 76-year-old male with severe sepsis due to methicillin-resistant Staphylococcus aureus bacteremia, rule out biliary stent infection, patient with left hip surgery, pancreatic head mass, status post by history; on daptomycin, doxycycline, meropenem. Jose David Gracia MD
[2017-05-01] MEDS: Pantoprazole 40 mg EC Tab PO SCH (09:21)
[2017-05-01] MEDS: Amylase/Lipase/Protease 5,000 Units ECC PO SCH ×3 (09:21→16:01)
[2017-05-01] MEDS: POLYETHYLENE GLYCOL 3350 17 GM/Dose PACKET PO SCH (09:24)
--- NOTE | 2017-05-01 14:01 | CP.PCM.PN ---
Subjective - Date & Time of Evaluation Date of Evaluation: 05/01/17 Time of Evaluation: 13:59 - Subjective Subjective: 76 y/o male seen at bedside this afternoon for left heel pressure ulcerations. Patient is AAOx3 and is in NAD. Admits to mild pain in the back of the left foot , especially when anything rubs against it. States he does not like or want to wear his offloading boots as they hurt the back of the heel more. Denies F/C/N/V /CP/SOB at present. Objective - Vital Signs/Intake and Output Vital Signs (last 24 hours): Temp Pulse Resp BP Pulse Ox 98.0 F 98 H 18 156/90 H 95 05/01/17 08:00 05/01/17 08:00 05/01/17 08:00 05/01/17 08:00 05/01/17 08:00 Intake and Output: 05/01/17 05/01/17 06:59 18:59 Intake Total 540 Output Total 2000 Balance -1460 - Medications Medications: Current Medications Amylase (Pancrease 97570 U-5000 U-10970 U) 5,000 unit PO ACTID [facility] Last Admin: 05/01/17 12:49 Dose: 5,000 unit Doxycycline Hyclate (Doryx) 100 mg PO Q12 [facility] PRN Reason: Protocol Stop: 05/06/17 22:01 Last Admin: 05/01/17 09:21 Dose: 100 mg Hydromorphone HCl (Dilaudid) 1 mg IVP Q6H PRN PRN Reason: Pain, severe (8-10) Last Admin: 04/30/17 22:38 Dose: 1 mg Daptomycin 420 mg/ Sodium (Chloride) 100 mls @ 200 mls/hr IV Q24H [facility] Stop: 05/25/17 19:31 Last Admin: 04/30/17 22:34 Dose: 200 mls/hr Meropenem/Sodium Chloride (Meropenem 1g/Ns 100ml Ivpb) 1 gm in 100 mls @ 200 mls/hr IVPB Q12 [facility] Last Admin: 05/01/17 09:22 Dose: 200 mls/hr Insulin Human Regular (Humulin R Low) 0 units SC ACHS [facility] PRN Reason: Protocol Last Admin: 05/01/17 09:00 Dose: 1 units Levetiracetam (Keppra) 250 mg PO BID [facility] Last Admin: 05/01/17 09:22 Dose: 250 mg Mupirocin (Bactroban Ointment) 0 gm TOP DAILY [facility] Last Admin: 04/30/17 09:33 Dose: Not Given Oxycodone/Acetaminophen (Percocet 5/325 Mg Tab) 1 tab PO Q6H PRN PRN Reason: Pain, moderate (4-7) Stop: 05/02/17 19:21 Last Admin: 05/01/17 12:49 Dose: 1 tab Pantoprazole Sodium (Protonix Ec Tab) 40 mg PO ACB [facility] Last Admin: 05/01/17 09:21 Dose: 40 mg Polyethylene Glycol (Miralax) 17 gm PO DAILY [facility] Last Admin: 05/01/17 09:24 Dose: 17 gm - Labs Labs: 04/29/17 05:45 04/29/17 05:45 PT 13.4 SECONDS (9.4-12.5) H 04/25/17 06:30 INR 1.16 (0.93-1.08) H 04/25/17 06:30 APTT 35.8 Seconds (25.1-36.5) 04/25/17 06:30 - Constitutional Appears: Well, Non-toxic, No Acute Distress - Extremities Exam Additional comments: Lower extremity focused exam: Vasc: DP/PT pulses palpable 2/4. Temperature gradient warm to cool. CFT < 3 sec to all digits. No pedal edema noted. Derm: Two posterior heel ulcerations noted to left foot. Medial ulceration measures approx. 0.7cm x 0.5cm x 0.4cm with fibrotic base. Mild tj wound erythema which is resolving. No maceration noted to wound edges. No fluctuance, purulent drainage, tunneling, undermining or malodor. Second ulceration noted approx 1 cm lateral to above mentioned ulcer. Measures approx. 1.0 cm x 1.1cm x 0.1cm with fibrogranular wound base. No fluctuance, purulence, malodor, tunneling or undermining. Additional superficial hyperkeratotic scab noted to posterior aspect of right heel, stable. Neuro: Protective sensation grossly intact Ortho: Mild tenderness to palpation of left posterior heel ulcerations. Chantal s deformity noted to posterior left heel at site of ulcerations. - Neurological Exam Neurological Exam: Alert, Awake - Psychiatric Exam Psychiatric exam: Normal Affect, Normal Mood Assessment and Plan - Assessment and Plan (Free Text) Assessment: 76 y/o male with left heel diabetic ulcerations worsened by pressure/bed bound status Plan: Pt seen and evaluated at bedside Discussed with attending Dr. 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
--- NOTE | 2017-05-01 23:47 | PN ---
DATE: 05/01/2017 SUBJECTIVE: The patient is in bed, in no acute distress, nontoxic. The patient was seen earlier this morning in room 572, bed 1. PHYSICAL EXAMINATION: VITAL SIGNS: On examination, temperature is 98, blood pressure is 150/90, respiratory rate of 18, and heart rate of 98. HEENT: Unremarkable. NECK: Supple. LUNGS: Decreased breath sounds. HEART: Normal S1 and S2. ABDOMEN: Soft. LABORATORY DATA: Laboratory examination revealed a white count on the 2nd of 17,600. The patient's creatinine is 1.4. Microbiology is noted. REVIEW OF ORDERS: Reveals the patient to be on daptomycin, doxycycline, and meropenem. ASSESSMENT AND PLAN: A 76-year-old male with severe sepsis due to methicillin-resistant Staphylococcus aureus bacteremia with a history of biliary stent and left hip surgery, pancreatic head mass, currently on daptomycin, doxycycline, and meropenem. Should repeat the blood work. Jose David Gracia MD
[2017-05-02] MEDS: Oxycodone/Acetaminophen 5/325 mg Tab PO PRN ×3 (00:02→17:13)
[2017-05-02 07:36] LABS: BASO # 0.03 K/mm3 (0.0-2.0); BASO % 0.2 % (0.0-3.0); EOS # 0.4 (0.0-0.7); GRAN # 10.11 (1.4-6.5); GRAN % 78.5 % (50.0-68.0); HEMOGLOBIN 9.2 g/dL (14.0-18.0); LYMPH # 1.4 (1.2-3.4); LYMPH % 11.2 % (22.0-35.0); MEAN CELL VOLUME 83.4 fl (80.0-105.0); MEAN CORPUSCULAR HEMOGLOBIN 26.8 pg (25.0-35.0); MEAN CORPUSCULAR HGB CONC 32.2 g/dl (31.0-37.0); MEAN PLATELET VOLUME 9.8 fl (7.0-11.0); MONO # 0.9 (0.1-0.6); MONO % 7.1 % (1.0-6.0); RBC 3.43 10^6/uL (3.5-6.1); RED CELL DISTRIBUTION WIDTH 15.9 % (11.5-14.5); WHITE BLOOD COUNT 12.9 10^3/ul (4.5-11.0)
[2017-05-02] MEDS: Insulin Reg-LOW-Coverage SC SCH ×4 (08:03→22:36)
[2017-05-02] MEDS: Pantoprazole 40 mg EC Tab PO SCH (08:05)
[2017-05-02] MEDS: Amylase/Lipase/Protease 5,000 Units ECC PO SCH ×3 (08:06→17:13)
[2017-05-02 08:47] LABS: ALB/GLOB RATIO 0.7 (1.1-1.8); ALBUMIN 2.3 g/dL (3.0-4.8); CALCIUM 8.5 mg/dL (8.4-10.5)
--- NOTE | 2017-05-02 10:49 | CP.PCM.PN ---
Subjective - Date & Time of Evaluation Date of Evaluation: 05/02/17 Time of Evaluation: 10:43 - Subjective Subjective: Patient seen and examined at bedside. Patient with daughter at bedside. Patient received pain medication recently and is lethargic. He answers questions appropriately. He is complaining of lower extremity pain. Denies chest pain, shortness of breath, nausea, vomiting, diarrhea, fever, chills. Objective - Vital Signs/Intake and Output Vital Signs (last 24 hours): Temp Pulse Resp BP Pulse Ox 98.2 F 86 20 148/99 H 95 05/02/17 06:00 05/02/17 06:00 05/02/17 06:00 05/02/17 06:00 05/02/17 06:00 Intake and Output: 05/02/17 05/02/17 06:59 18:59 Output Total 700 850 Balance -700 -850 - Medications Medications: Current Medications Amylase (Pancrease 09092 U-5000 U-00973 U) 5,000 unit PO ACTID [facility] Last Admin: 05/02/17 08:06 Dose: 5,000 unit Doxycycline Hyclate (Doryx) 100 mg PO Q12 [facility] PRN Reason: Protocol Stop: 05/06/17 22:01 Last Admin: 05/01/17 21:33 Dose: 100 mg Daptomycin 420 mg/ Sodium (Chloride) 100 mls @ 200 mls/hr IV Q24H [facility] Stop: 05/25/17 19:31 Last Admin: 05/01/17 18:36 Dose: 200 mls/hr Meropenem/Sodium Chloride (Meropenem 1g/Ns 100ml Ivpb) 1 gm in 100 mls @ 200 mls/hr IVPB Q12 [facility] Last Admin: 05/01/17 21:33 Dose: 200 mls/hr Insulin Human Regular (Humulin R Low) 0 units SC ACHS [facility] PRN Reason: Protocol Last Admin: 05/02/17 08:03 Dose: 1 units Levetiracetam (Keppra) 250 mg PO BID [facility] Last Admin: 05/01/17 17:37 Dose: Not Given Mupirocin (Bactroban Ointment) 0 gm TOP DAILY [facility] Last Admin: 05/01/17 09:30 Dose: Not Given Oxycodone/Acetaminophen (Percocet 5/325 Mg Tab) 1 tab PO Q6H PRN PRN Reason: Pain, moderate (4-7) Stop: 05/02/17 19:21 Last Admin: 05/02/17 09:16 Dose: 1 tab Pantoprazole Sodium (Protonix Ec Tab) 40 mg PO ACB [facility] Last Admin: 05/02/17 08:05 Dose: 40 mg Polyethylene Glycol (Miralax) 17 gm PO DAILY [facility] Last Admin: 05/01/17 09:24 Dose: 17 gm - Labs Labs: 05/02/17 06:40 05/02/17 08:00 PT 13.4 SECONDS (9.4-12.5) H 04/25/17 06:30 INR 1.16 (0.93-1.08) H 04/25/17 06:30 APTT 35.8 Seconds (25.1-36.5) 04/25/17 06:30 - Constitutional Appears: Non-toxic, No Acute Distress - Head Exam Head Exam: ATRAUMATIC, NORMAL INSPECTION, NORMOCEPHALIC - ENT Exam ENT Exam: Mucous Membranes Moist - Respiratory Exam Respiratory Exam: Clear to Ausculation Bilateral, NORMAL BREATHING PATTERN - Cardiovascular Exam Cardiovascular Exam: RRR, +S1, +S2 - GI/Abdominal Exam GI & Abdominal Exam: Soft, Normal Bowel Sounds. absent: Tenderness - Extremities Exam Extremities Exam: Normal Inspection. absent: Calf Tenderness, Pedal Edema - Neurological Exam Neurological Exam: Alert, Awake, Oriented x3 - Psychiatric Exam Psychiatric exam: Normal Affect, Normal Mood - Skin Skin Exam: Dry, Intact, Normal Color Assessment and Plan - Assessment and Plan (Free Text) Plan: 76 y/o M with past medical history of Pancreatic Adenocarcinoma, left hip fracture s/p repair, DM2, and CAD s/p triple CABG presents with history of pancreatic adenocarcinoma. Patient did not follow up from last admission due to hip fracture. We will consult IR for a diagnostic paracentesis. However, at this time our recommendation would be to continue supportive care and adequate pain control. After discussion with GI, patient's tumor burden has increased causing worsening of pain and overall status. Prognosis is poor. We will continue to follow closely. Plan discussed with Dr. Bautista. See, PGY-2
[2017-05-02] MEDS: POLYETHYLENE GLYCOL 3350 17 GM/Dose PACKET PO SCH (11:08)
[2017-05-02] MEDS: Meropenem 1g/NS 100mL IVPB 1 GM/100 ML PIGGYBACK IVPB SCH ×2 (11:09→22:38)
--- NOTE | 2017-05-02 13:25 | CP.PCM.PN ---
Subjective - Date & Time of Evaluation Date of Evaluation: 05/02/17 Time of Evaluation: 13:25 - Subjective Subjective: Mr. Ibarra was seen nad examined at the bedside. He is sleepy but able to answer and follow simple commands. He claims of receiving pain medications earlier. He denies any headache, dizziness, blurred vision, or diplopia. There was no untoward events overnight. Objective - Vital Signs/Intake and Output Vital Signs (last 24 hours): Temp Pulse Resp BP Pulse Ox 98.2 F 86 20 148/99 H 95 05/02/17 06:00 05/02/17 06:00 05/02/17 06:00 05/02/17 06:00 05/02/17 06:00 Intake and Output: 05/02/17 05/02/17 06:59 18:59 Output Total 700 850 Balance -700 -850 - Medications Medications: Current Medications Amylase (Pancrease 23813 U-5000 U-99343 U) 5,000 unit PO ACTID [facility] Last Admin: 05/02/17 12:49 Dose: 5,000 unit Doxycycline Hyclate (Doryx) 100 mg PO Q12 [facility] PRN Reason: Protocol Stop: 05/06/17 22:01 Last Admin: 05/02/17 11:08 Dose: 100 mg Daptomycin 420 mg/ Sodium (Chloride) 100 mls @ 200 mls/hr IV Q24H [facility] Stop: 05/25/17 19:31 Last Admin: 05/01/17 18:36 Dose: 200 mls/hr Meropenem/Sodium Chloride (Meropenem 1g/Ns 100ml Ivpb) 1 gm in 100 mls @ 200 mls/hr IVPB Q12 [facility] Last Admin: 05/02/17 11:09 Dose: 200 mls/hr Insulin Human Regular (Humulin R Low) 0 units SC ACHS [facility] PRN Reason: Protocol Last Admin: 05/02/17 12:25 Dose: 3 units Levetiracetam (Keppra) 250 mg PO BID [facility] Last Admin: 05/02/17 11:08 Dose: 250 mg Mupirocin (Bactroban Ointment) 0 gm TOP DAILY [facility] Last Admin: 05/02/17 11:09 Dose: 1 applic Oxycodone/Acetaminophen (Percocet 5/325 Mg Tab) 1 tab PO Q6H PRN PRN Reason: Pain, moderate (4-7) Stop: 05/02/17 19:21 Last Admin: 05/02/17 09:16 Dose: 1 tab Pantoprazole Sodium (Protonix Ec Tab) 40 mg PO ACB [facility] Last Admin: 05/02/17 08:05 Dose: 40 mg Polyethylene Glycol (Miralax) 17 gm PO DAILY [facility] Last Admin: 05/02/17 11:08 Dose: 17 gm - Labs Labs: 05/02/17 06:40 05/02/17 08:00 PT 13.4 SECONDS (9.4-12.5) H 04/25/17 06:30 INR 1.16 (0.93-1.08) H 04/25/17 06:30 APTT 35.8 Seconds (25.1-36.5) 04/25/17 06:30 - Constitutional Appears: No Acute Distress - Head Exam Head Exam: NORMAL INSPECTION - Neurological Exam Neurological Exam: Awake Neuro motor strength exam: Left Upper Extremity: 4, Right Upper Extremity: 4, Left Lower Extremity: 2/1, Right Lower Extremity: 2/1 Additional comments: Neurological unchanged from previous examination. Assessment and Plan (1) Seizure Assessment & Plan: Case discussed with Dr. conway, continue all current medical, physical therapies. There is no new recommendations from neurology. Status: Acute
--- NOTE | 2017-05-02 17:15 | CP.PCM.PN ---
Subjective - Date & Time of Evaluation Date of Evaluation: 05/02/17 Time of Evaluation: 17:12 - Subjective Subjective: 76 y/o male seen at bedside this afternoon for left heel pressure ulcerations. Patient is AAOx3 and is in NAD. States he does not like or want to wear his offloading boots as they hurt the back of the heel more. Denies of any acute overnight events. Denies F/C/N/V/CP/SOB at present. Objective - Vital Signs/Intake and Output Vital Signs (last 24 hours): Temp Pulse Resp BP Pulse Ox 98.2 F 86 20 148/99 H 95 05/02/17 06:00 05/02/17 06:00 05/02/17 06:00 05/02/17 06:00 05/02/17 06:00 Intake and Output: 05/02/17 05/02/17 06:59 18:59 Output Total 700 850 Balance -700 -850 - Medications Medications: Current Medications Amylase (Pancrease 08785 U-5000 U-84256 U) 5,000 unit PO ACTID [facility] Last Admin: 05/02/17 12:49 Dose: 5,000 unit Doxycycline Hyclate (Doryx) 100 mg PO Q12 [facility] PRN Reason: Protocol Stop: 05/06/17 22:01 Last Admin: 05/02/17 11:08 Dose: 100 mg Daptomycin 420 mg/ Sodium (Chloride) 100 mls @ 200 mls/hr IV Q24H [facility] Stop: 05/25/17 19:31 Last Admin: 05/01/17 18:36 Dose: 200 mls/hr Meropenem/Sodium Chloride (Meropenem 1g/Ns 100ml Ivpb) 1 gm in 100 mls @ 200 mls/hr IVPB Q12 [facility] Last Admin: 05/02/17 11:09 Dose: 200 mls/hr Insulin Human Regular (Humulin R Low) 0 units SC ACHS [facility] PRN Reason: Protocol Last Admin: 05/02/17 12:25 Dose: 3 units Levetiracetam (Keppra) 250 mg PO BID [facility] Last Admin: 05/02/17 11:08 Dose: 250 mg Mupirocin (Bactroban Ointment) 0 gm TOP DAILY [facility] Last Admin: 05/02/17 11:09 Dose: 1 applic Oxycodone/Acetaminophen (Percocet 5/325 Mg Tab) 1 tab PO Q6H [facility] PRN Reason: Pain, moderate (4-7) Stop: 05/02/17 19:21 Last Admin: 05/02/17 09:16 Dose: 1 tab Pantoprazole Sodium (Protonix Ec Tab) 40 mg PO ACB [facility] Last Admin: 05/02/17 08:05 Dose: 40 mg Polyethylene Glycol (Miralax) 17 gm PO DAILY [facility] Last Admin: 05/02/17 11:08 Dose: 17 gm - Labs Labs: 05/02/17 06:40 05/02/17 08:00 PT 13.4 SECONDS (9.4-12.5) H 04/25/17 06:30 INR 1.16 (0.93-1.08) H 04/25/17 06:30 APTT 35.8 Seconds (25.1-36.5) 04/25/17 06:30 - Constitutional Appears: Well, Non-toxic, No Acute Distress - Extremities Exam Additional comments: Lower extremity focused exam: Vasc: DP/PT pulses palpable 2/4. Temperature gradient warm to cool. CFT < 3 sec to all digits. No pedal edema noted. Derm: Two posterior heel ulcerations noted to left foot. Medial ulceration measures approx. 0.7cm x 0.5cm x 0.4cm with fibrotic base. Mild tj wound erythema which is resolving. No maceration noted to wound edges. No fluctuance, purulent drainage, tunneling, undermining or malodor. Second ulceration noted approx 1 cm lateral to above mentioned ulcer. Measures approx. 1.0 cm x 1.1cm x 0.1cm with fibrogranular wound base. No fluctuance, purulence, malodor, tunneling or undermining. Additional superficial hyperkeratotic scab noted to posterior aspect of right heel, stable. Neuro: Protective sensation grossly intact Ortho: Mild tenderness to palpation of left posterior heel ulcerations. Chantal s deformity noted to posterior left heel at site of ulcerations. - Neurological Exam Neurological Exam: Alert, Awake, Oriented x3 - Psychiatric Exam Psychiatric exam: Normal Affect, Normal Mood Assessment and Plan - Assessment and Plan (Free Text) Assessment: 76 y/o male with left heel diabetic ulcerations worsened by pressure/bed bound status Plan: Pt seen and evaluated at bedside Discussed with attending Dr. 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
[2017-05-02] MEDS ORDERED: Magnesium Hydroxide Susp 30 ml UD PO STA (22:52)
--- NOTE | 2017-05-02 22:53 | CP.PCM.PN ---
Subjective - Date & Time of Evaluation Date of Evaluation: 05/02/17 Time of Evaluation: 22:52 - Subjective Subjective: S:Patient was seen at bedside. He request for a laxative. States that he had bowel movement this morning , it was not good bowel movement. Stomach feels discomfort. No nausea, no vomiting. Medical record was reviewed. O: Last Vital Signs 3 Temp 98.2 F 05/02/17 06:00 Pulse 86 05/02/17 06:00 Resp 20 05/02/17 06:00 BP 148/99 H 05/02/17 06:00 Pulse Ox 95 05/02/17 06:00 Awake, alert, not in distress. LUNGS: Normal breathing pattern. ABD: No distension. A: Constipation. P:Milk of magnesia 30 CC PO x 1. Objective - Vital Signs/Intake and Output Vital Signs (last 24 hours): Temp Pulse Resp BP Pulse Ox 98.2 F 86 20 148/99 H 95 05/02/17 06:00 05/02/17 06:00 05/02/17 06:00 05/02/17 06:00 05/02/17 06:00 Intake and Output: 05/02/17 05/03/17 18:59 06:59 Output Total 850 Balance -850 - Medications Medications: Current Medications Amylase (Pancrease 76856 U-5000 U-63933 U) 5,000 unit PO ACTID [facility] Last Admin: 05/02/17 17:13 Dose: 5,000 unit Doxycycline Hyclate (Doryx) 100 mg PO Q12 [facility] PRN Reason: Protocol Stop: 05/06/17 22:01 Last Admin: 05/02/17 22:38 Dose: 100 mg Daptomycin 420 mg/ Sodium (Chloride) 100 mls @ 200 mls/hr IV Q24H [facility] Stop: 05/25/17 19:31 Last Admin: 05/02/17 20:17 Dose: 200 mls/hr Meropenem/Sodium Chloride (Meropenem 1g/Ns 100ml Ivpb) 1 gm in 100 mls @ 200 mls/hr IVPB Q12 [facility] Last Admin: 05/02/17 22:38 Dose: 200 mls/hr Insulin Human Regular (Humulin R Low) 0 units SC ACHS [facility] PRN Reason: Protocol Last Admin: 05/02/17 22:36 Dose: Not Given Levetiracetam (Keppra) 250 mg PO BID [facility] Last Admin: 05/02/17 17:14 Dose: 250 mg Mupirocin (Bactroban Ointment) 0 gm TOP DAILY [facility] Last Admin: 05/02/17 11:09 Dose: 1 applic Pantoprazole Sodium (Protonix Ec Tab) 40 mg PO ACB [facility] Last Admin: 05/02/17 08:05 Dose: 40 mg Polyethylene Glycol (Miralax) 17 gm PO DAILY [facility] Last Admin: 05/02/17 11:08 Dose: 17 gm - Labs Labs: 05/02/17 06:40 05/02/17 08:00 PT 13.4 SECONDS (9.4-12.5) H 04/25/17 06:30 INR 1.16 (0.93-1.08) H 04/25/17 06:30 APTT 35.8 Seconds (25.1-36.5) 04/25/17 06:30
[2017-05-03] MEDS ORDERED: Oxycodone/Acetaminophen 5/325 mg Tab PO STA ×2 (00:30→04:56)
--- NOTE | 2017-05-03 02:52 | PN ---
DATE: 05/02/2017 SUBJECTIVE: This patient was seen and evaluated earlier today. Patient is tolerating the diet, has bowel movement before. Abdominal discomfort has improved; he is feeling better. PHYSICAL EXAMINATION: VITAL SIGNS: Temperature is 98.5, pulse 74, blood pressure is 141/87. HEENT: Atraumatic, anicteric. NECK: Supple. HEART: S1 and S2 heard. LUNGS: Bilateral air entry present. ABDOMEN: Soft. The PTC catheter present, draining the bile. EXTREMITIES: No cyanosis, no clubbing. LABORATORY DATA: BUN 36, creatinine 1.5. Alkaline phosphatase 230, total bilirubin is 0.5. IMPRESSION: 1. This is a 76-year-old patient with locally advanced pancreatic cancer. There was displaced metal stent. The patient is status post percutaneous transhepatic cholangiography and internal and external stent placement. The patient does have significantly increase in size of this pancreatic cancer infiltrating into the duodenum. Could not identify the ampullary orifice again. 2. Methicillin-resistant Staphylococcus aureus sepsis, bile culture positive for the methicillin-resistant Staphylococcus aureus bacteria. RECOMMENDATIONS: Would recommend: 1. Continue the antibiotics as per Infectious Disease. 2. Consider converting the internal and external stent to internal stent. Patient does have multiple comorbidities, history of coronary artery disease. Patient has been followed by the oncologist. I discussed with the patient's daughter who was at bedside. Thank you very much for allowing us to participate in the care of the patient. Yomaira Bradley MD
[2017-05-03] MEDS: Insulin Reg-LOW-Coverage SC SCH ×4 (08:35→22:55)
[2017-05-03] MEDS: Amylase/Lipase/Protease 5,000 Units ECC PO SCH ×3 (08:37→16:33)
[2017-05-03] MEDS: Pantoprazole 40 mg EC Tab PO SCH (08:40)
[2017-05-03] MEDS: Meropenem 1g/NS 100mL IVPB 1 GM/100 ML PIGGYBACK IVPB SCH ×2 (10:26→22:15)
[2017-05-03] MEDS: POLYETHYLENE GLYCOL 3350 17 GM/Dose PACKET PO SCH (10:26)
--- NOTE | 2017-05-03 10:44 | CP.PCM.PN ---
Subjective - Date & Time of Evaluation Date of Evaluation: 05/03/17 Time of Evaluation: 10:38 - Subjective Subjective: Patient seen and examined at bedside. Patient states he is not doing well. He overall feels very lethargic and fatigued. He admits to abdominal and lower extremity pain. Denies chest pain, shortness of breath, nausea, vomiting, diarrhea, fever, chills. Objective - Vital Signs/Intake and Output Vital Signs (last 24 hours): Temp Pulse Resp BP Pulse Ox 97.8 F 84 20 143/96 H 98 05/03/17 06:00 05/03/17 06:00 05/03/17 06:00 05/03/17 06:00 05/03/17 06:00 Intake and Output: 05/03/17 05/03/17 06:59 18:59 Intake Total 300 Output Total 1020 Balance -1020 300 - Medications Medications: Current Medications Amylase (Pancrease 02882 U-5000 U-08741 U) 5,000 unit PO ACTID [facility] Last Admin: 05/03/17 08:37 Dose: 5,000 unit Doxycycline Hyclate (Doryx) 100 mg PO Q12 [facility] PRN Reason: Protocol Stop: 05/06/17 22:01 Last Admin: 05/03/17 10:26 Dose: 100 mg Daptomycin 420 mg/ Sodium (Chloride) 100 mls @ 200 mls/hr IV Q24H [facility] Stop: 05/25/17 19:31 Last Admin: 05/02/17 20:17 Dose: 200 mls/hr Meropenem/Sodium Chloride (Meropenem 1g/Ns 100ml Ivpb) 1 gm in 100 mls @ 200 mls/hr IVPB Q12 [facility] Last Admin: 05/03/17 10:26 Dose: 200 mls/hr Insulin Human Regular (Humulin R Low) 0 units SC ACHS [facility] PRN Reason: Protocol Last Admin: 05/03/17 08:35 Dose: 1 units Levetiracetam (Keppra) 250 mg PO BID [facility] Last Admin: 05/03/17 10:28 Dose: 250 mg Mupirocin (Bactroban Ointment) 0 gm TOP DAILY [facility] Last Admin: 05/02/17 11:09 Dose: 1 applic Pantoprazole Sodium (Protonix Ec Tab) 40 mg PO ACB [facility] Last Admin: 05/03/17 08:40 Dose: 40 mg Polyethylene Glycol (Miralax) 17 gm PO DAILY [facility] Last Admin: 05/03/17 10:26 Dose: 17 gm - Labs Labs: 05/02/17 06:40 05/02/17 08:00 PT 13.4 SECONDS (9.4-12.5) H 04/25/17 06:30 INR 1.16 (0.93-1.08) H 04/25/17 06:30 APTT 35.8 Seconds (25.1-36.5) 04/25/17 06:30 - Constitutional Appears: Non-toxic (Lethargic) - Head Exam Head Exam: ATRAUMATIC, NORMAL INSPECTION, NORMOCEPHALIC - ENT Exam ENT Exam: Mucous Membranes Dry - Respiratory Exam Respiratory Exam: Clear to Ausculation Bilateral, NORMAL BREATHING PATTERN - Cardiovascular Exam Cardiovascular Exam: Tachycardia, REGULAR RHYTHM, +S1, +S2 - GI/Abdominal Exam GI & Abdominal Exam: Soft, Tenderness (Mild, diffuse), Normal Bowel Sounds - Extremities Exam Extremities Exam: Normal Inspection, Pedal Edema (Trace b/l). absent: Calf Tenderness - Neurological Exam Neurological Exam: Alert, Awake, Oriented x3 - Psychiatric Exam Psychiatric exam: Normal Affect, Normal Mood - Skin Skin Exam: Dry, Intact, Normal Color, Warm Assessment and Plan - Assessment and Plan (Free Text) Plan: 76 y/o M with past medical history of Pancreatic Adenocarcinoma, left hip fracture s/p repair, DM2, and CAD s/p triple CABG presents with history of pancreatic adenocarcinoma. Patient with advancing pancreatic carcinoma. IR is consulted at this time for a paracentesis. However, at this time our recommendation would be to continue supportive care and adequate pain control. After discussion with GI, patient's tumor burden has increased causing worsening of pain and overall status. Prognosis is poor. We will continue to follow closely. Plan discussed with Dr. Iyengar. Cui, PGY-2
--- NOTE | 2017-05-03 12:08 | CP.PCM.PN ---
<Lesli Bellamy - Last Filed: 05/03/17 12:04> Subjective - Date & Time of Evaluation Date of Evaluation: 05/03/17 Time of Evaluation: 12:05 - Subjective Subjective: 76 y/o male seen at bedside this afternoon for left heel pressure ulcerations. Patient is seen with his daughter. Patient is AAOx3 and is in NAD. States he does not like or want to wear his offloading boots as they hurt the back of the heel more. Denies of any acute overnight events. Denies F/C/N/V/CP/SOB at present. Objective - Vital Signs/Intake and Output Vital Signs (last 24 hours): Temp Pulse Resp BP Pulse Ox 97.8 F 84 20 143/96 H 98 05/03/17 06:00 05/03/17 06:00 05/03/17 06:00 05/03/17 06:00 05/03/17 06:00 Intake and Output: 05/03/17 05/03/17 06:59 18:59 Intake Total 300 Output Total 1020 Balance -1020 300 - Medications Medications: Current Medications Amylase (Pancrease 88819 U-5000 U-79457 U) 5,000 unit PO ACTID [facility] Last Admin: 05/03/17 11:58 Dose: 5,000 unit Doxycycline Hyclate (Doryx) 100 mg PO Q12 [facility] PRN Reason: Protocol Stop: 05/06/17 22:01 Last Admin: 05/03/17 10:26 Dose: 100 mg Daptomycin 420 mg/ Sodium (Chloride) 100 mls @ 200 mls/hr IV Q24H [facility] Stop: 05/25/17 19:31 Last Admin: 05/02/17 20:17 Dose: 200 mls/hr Meropenem/Sodium Chloride (Meropenem 1g/Ns 100ml Ivpb) 1 gm in 100 mls @ 200 mls/hr IVPB Q12 [facility] Last Admin: 05/03/17 10:26 Dose: 200 mls/hr Insulin Human Regular (Humulin R Low) 0 units SC ACHS [facility] PRN Reason: Protocol Last Admin: 05/03/17 11:55 Dose: 2 units Levetiracetam (Keppra) 250 mg PO BID [facility] Last Admin: 05/03/17 10:28 Dose: 250 mg Mupirocin (Bactroban Ointment) 0 gm TOP DAILY [facility] Last Admin: 05/03/17 11:54 Dose: 1 applic Pantoprazole Sodium (Protonix Ec Tab) 40 mg PO ACB [facility] Last Admin: 05/03/17 08:40 Dose: 40 mg Polyethylene Glycol (Miralax) 17 gm PO DAILY [facility] Last Admin: 05/03/17 10:26 Dose: 17 gm - Labs Labs: 05/02/17 06:40 05/02/17 08:00 PT 13.4 SECONDS (9.4-12.5) H 04/25/17 06:30 INR 1.16 (0.93-1.08) H 04/25/17 06:30 APTT 35.8 Seconds (25.1-36.5) 04/25/17 06:30 - Constitutional Appears: Well, Non-toxic, No Acute Distress - Extremities Exam Additional comments: Lower extremity focused exam: Vasc: DP/PT pulses palpable 2/4. Temperature gradient warm to cool. CFT < 3 sec to all digits. No pedal edema noted. Derm: Two posterior heel ulcerations noted to left foot. Medial ulceration measures approx. 0.7cm x 0.5cm x 0.4cm with fibrotic base. Mild tj wound erythema which is resolving. No maceration noted to wound edges. No fluctuance, purulent drainage, tunneling, undermining or malodor. Second ulceration noted approx 1 cm lateral to above mentioned ulcer. Measures approx. 1.0 cm x 1.1cm x 0.1cm with fibrogranular wound base. No fluctuance, purulence, malodor, tunneling or undermining. Additional superficial hyperkeratotic scab noted to posterior aspect of right heel, stable. Neuro: Protective sensation grossly intact Ortho: Mild tenderness to palpation of left posterior heel ulcerations. Chantal s deformity noted to posterior left heel at site of ulcerations. - Neurological Exam Neurological Exam: Alert, Awake, Oriented x3 - Psychiatric Exam Psychiatric exam: Normal Affect, Normal Mood Assessment and Plan - Assessment and Plan (Free Text) Assessment: 76 y/o male with left heel diabetic ulcerations worsened by pressure/bed bound status Plan: Pt seen and evaluated at bedside Discussed with attending Dr. 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; no radiographic evidence of bony erosion, (-) for osteomyelitis Wound cx left foot (+) MRSA and Coag negative Staph Continue IV abx per ID - Daptomycin, Doxycycline, Meropenem Wound to left posterior heel cleansed with saline and dressed with maxorb Optifoam dressing R heel scab covered with small Optifoam dressing Patient encouraged to wear multipodus boots while in bed at all times but pt is refusing Elevated legs on pillow to offload posterior heels Podiatry will continue to follow patient while in house <Fede Geller - Last Filed: 05/03/17 14:58> Objective - Vital Signs/Intake and Output Vital Signs (last 24 hours): Temp Pulse Resp BP Pulse Ox 97.8 F 84 20 143/96 H 98 05/03/17 06:00 05/03/17 06:00 05/03/17 06:00 05/03/17 06:00 05/03/17 06:00 Intake and Output: 05/03/17 05/03/17 06:59 18:59 Intake Total 300 Output Total 1020 Balance -1020 300 - Medications Medications: Current Medications Acetaminophen (Tylenol 325mg Tab) 650 mg PO Q6H PRN PRN Reason: Fever >100.4 F Acetaminophen (Tylenol 325mg Tab) 325 mg PO DAILY [facility] Last Admin: 05/03/17 13:22 Dose: 325 mg Amylase (Pancrease 09521 U-5000 U-53017 U) 5,000 unit PO ACTID [facility] Last Admin: 05/03/17 11:58 Dose: 5,000 unit Doxycycline Hyclate (Doryx) 100 mg PO Q12 [facility] PRN Reason: Protocol Stop: 05/06/17 22:01 Last Admin: 05/03/17 10:26 Dose: 100 mg Daptomycin 420 mg/ Sodium (Chloride) 100 mls @ 200 mls/hr IV Q24H [facility] Stop: 05/25/17 19:31 Last Admin: 05/02/17 20:17 Dose: 200 mls/hr Meropenem/Sodium Chloride (Meropenem 1g/Ns 100ml Ivpb) 1 gm in 100 mls @ 200 mls/hr IVPB Q12 [facility] Last Admin: 05/03/17 10:26 Dose: 200 mls/hr Insulin Human Regular (Humulin R Low) 0 units SC ACHS [facility] PRN Reason: Protocol Last Admin: 05/03/17 11:55 Dose: 2 units Levetiracetam (Keppra) 250 mg PO BID [facility] Last Admin: 05/03/17 10:28 Dose: 250 mg Mupirocin (Bactroban Ointment) 0 gm TOP DAILY [facility] Last Admin: 05/03/17 11:54 Dose: 1 applic Oxycodone/Acetaminophen (Percocet 5/325 Mg Tab) 1 tab PO Q6H PRN PRN Reason: Pain, moderate (4-7) Stop: 05/06/17 12:57 Pantoprazole Sodium (Protonix Ec Tab) 40 mg PO ACB [facility] Last Admin: 05/03/17 08:40 Dose: 40 mg Polyethylene Glycol (Miralax) 17 gm PO DAILY [facility] Last Admin: 05/03/17 10:26 Dose: 17 gm - Labs Labs: 05/02/17 06:40 05/02/17 08:00 PT 13.4 SECONDS (9.4-12.5) H 04/25/17 06:30 INR 1.16 (0.93-1.08) H 04/25/17 06:30 APTT 35.8 Seconds (25.1-36.5) 04/25/17 06:30 Attending/Attestation - Attestation I have personally seen and examined this patient.: Yes I have fully participated in the care of the patient.: Yes I have reviewed all pertinent clinical information, including history, physical exam and plan: Yes
--- NOTE | 2017-05-03 12:29 | CP.PCM.PN ---
<Elisa Campbell - Last Filed: 05/03/17 12:28> Subjective - Date & Time of Evaluation Date of Evaluation: 05/03/17 Time of Evaluation: 11:00 - Subjective Subjective: Seen and examined at the bedside earlier today, chart review. Patient denies nausea, vomiting, occasional abdominal discomfort but no acute distress. Patient's daughter is at the bedside. He is awaiting to go for a diagnostic paracentesis this afternoon. Reported to be having bowel movements no reports of diarrhea or any bleeding per rectum. No acute overnight events reported. Objective - Vital Signs/Intake and Output Vital Signs (last 24 hours): Temp Pulse Resp BP Pulse Ox 97.8 F 84 20 143/96 H 98 05/03/17 06:00 05/03/17 06:00 05/03/17 06:00 05/03/17 06:00 05/03/17 06:00 Intake and Output: 05/03/17 05/03/17 06:59 18:59 Intake Total 300 Output Total 1020 Balance -1020 300 - Medications Medications: Current Medications Amylase (Pancrease 19981 U-5000 U-13664 U) 5,000 unit PO ACTID [facility] Last Admin: 05/03/17 11:58 Dose: 5,000 unit Doxycycline Hyclate (Doryx) 100 mg PO Q12 [facility] PRN Reason: Protocol Stop: 05/06/17 22:01 Last Admin: 05/03/17 10:26 Dose: 100 mg Daptomycin 420 mg/ Sodium (Chloride) 100 mls @ 200 mls/hr IV Q24H [facility] Stop: 05/25/17 19:31 Last Admin: 05/02/17 20:17 Dose: 200 mls/hr Meropenem/Sodium Chloride (Meropenem 1g/Ns 100ml Ivpb) 1 gm in 100 mls @ 200 mls/hr IVPB Q12 [facility] Last Admin: 05/03/17 10:26 Dose: 200 mls/hr Insulin Human Regular (Humulin R Low) 0 units SC ACHS [facility] PRN Reason: Protocol Last Admin: 05/03/17 11:55 Dose: 2 units Levetiracetam (Keppra) 250 mg PO BID [facility] Last Admin: 05/03/17 10:28 Dose: 250 mg Mupirocin (Bactroban Ointment) 0 gm TOP DAILY [facility] Last Admin: 05/03/17 11:54 Dose: 1 applic Pantoprazole Sodium (Protonix Ec Tab) 40 mg PO ACB [facility] Last Admin: 05/03/17 08:40 Dose: 40 mg Polyethylene Glycol (Miralax) 17 gm PO DAILY [facility] Last Admin: 05/03/17 10:26 Dose: 17 gm - Labs Labs: 05/02/17 06:40 05/02/17 08:00 PT 13.4 SECONDS (9.4-12.5) H 04/25/17 06:30 INR 1.16 (0.93-1.08) H 04/25/17 06:30 APTT 35.8 Seconds (25.1-36.5) 04/25/17 06:30 - Constitutional Appears: No Acute Distress - Eye Exam Eye Exam: Normal appearance - ENT Exam ENT Exam: Mucous Membranes Moist - Neck Exam Neck Exam: Normal Inspection - Respiratory Exam Respiratory Exam: NORMAL BREATHING PATTERN. absent: Respiratory Distress - Cardiovascular Exam Cardiovascular Exam: +S1, +S2 - GI/Abdominal Exam GI & Abdominal Exam: Soft, Normal Bowel Sounds. absent: Guarding ((+) PTC, nontender, bag emptied this am 280cc , flushed BID), Tenderness, Rebound - Extremities Exam Extremities Exam: absent: Calf Tenderness, Pedal Edema Additional comments: heels red - Neurological Exam Neurological Exam: Alert, Awake, Oriented x3 - Skin Skin Exam: Dry, Warm Assessment and Plan - Assessment and Plan (Free Text) Assessment: Assessment: Improving Leukocytosis/Sepsis, bacteremia Seizure Pancreatic cancer status post biliary stents, status post CT scan showing nonvisualization of the metallic stent, no on 04/25/ s/p PTC biliary drain Elevated LFT History of diabetes mellitus Plan: heart healthy soft diet Miralax daily on Pancreatic enzymes prior to meals Continue IV antibiotics on Keppra pain mgt Monitor LFTs Continue GI prophylaxis For diagnostic paracentesis today Elevated heels SCD while in bed Seen and discussed with Dr. Bradley. <Yomaira Bradley V - Last Filed: 05/03/17 20:12> Objective - Vital Signs/Intake and Output Vital Signs (last 24 hours): Temp Pulse Resp BP Pulse Ox 98.2 F 83 20 150/98 H 96 05/03/17 16:13 05/03/17 16:13 05/03/17 16:13 05/03/17 16:13 05/03/17 16:13 Intake and Output: 05/03/17 05/04/17 18:59 06:59 Intake Total 300 Output Total 500 Balance -200 - Medications Medications: Current Medications Acetaminophen (Tylenol 325mg Tab) 650 mg PO Q6H PRN PRN Reason: Fever >100.4 F Acetaminophen (Tylenol 325mg Tab) 325 mg PO DAILY [facility] Last Admin: 05/03/17 13:22 Dose: 325 mg Amylase (Pancrease 59355 U-5000 U-03574 U) 5,000 unit PO ACTID [facility] Last Admin: 05/03/17 16:33 Dose: 5,000 unit Doxycycline Hyclate (Doryx) 100 mg PO Q12 [facility] PRN Reason: Protocol Stop: 05/06/17 22:01 Last Admin: 05/03/17 10:26 Dose: 100 mg Daptomycin 420 mg/ Sodium (Chloride) 100 mls @ 200 mls/hr IV Q24H [facility] Stop: 05/25/17 19:31 Last Admin: 05/03/17 18:32 Dose: 200 mls/hr Meropenem/Sodium Chloride (Meropenem 1g/Ns 100ml Ivpb) 1 gm in 100 mls @ 200 mls/hr IVPB Q12 [facility] Last Admin: 05/03/17 10:26 Dose: 200 mls/hr Insulin Human Regular (Humulin R Low) 0 units SC ACHS [facility] PRN Reason: Protocol Last Admin: 05/03/17 17:15 Dose: 1 units Levetiracetam (Keppra) 250 mg PO BID [facility] Last Admin: 05/03/17 17:15 Dose: 250 mg Mupirocin (Bactroban Ointment) 0 gm TOP DAILY [facility] Last Admin: 05/03/17 11:54 Dose: 1 applic Oxycodone/Acetaminophen (Percocet 5/325 Mg Tab) 1 tab PO Q6H PRN PRN Reason: Pain, moderate (4-7) Stop: 05/06/17 12:57 Last Admin: 05/03/17 16:33 Dose: 1 tab Pantoprazole Sodium (Protonix Ec Tab) 40 mg PO ACB [facility] Last Admin: 05/03/17 08:40 Dose: 40 mg Polyethylene Glycol (Miralax) 17 gm PO DAILY [facility] Last Admin: 05/03/17 10:26 Dose: 17 gm - Labs Labs: 05/02/17 06:40 05/02/17 08:00 PT 13.4 SECONDS (9.4-12.5) H 04/25/17 06:30 INR 1.16 (0.93-1.08) H 04/25/17 06:30 APTT 35.8 Seconds (25.1-36.5) 04/25/17 06:30 Attending/Attestation - Attestation I have personally seen and examined this patient.: Yes I have fully participated in the care of the patient.: Yes I have reviewed all pertinent clinical information, including history, physical exam and plan: Yes Notes (Text): This is an addendum to GI progress report dictated by Elisa Campbell APN.The patient was seen and examined earlier. Medical records, lab studies, imagings were reviewed. Last 24 hours events reviewed. Agreed with the above treatment plan as outlined in Elisa Campbell APN's notes the with the addition of the following On examination abdomen soft and mild tenderness in the epigastric area Awaiting for a CT-guided paracentesis to rule out any malignant ascites. Discussed with Dr Arroyo earlier 05/03/17 20:10
[2017-05-03] MEDS: Oxycodone/Acetaminophen 5/325 mg Tab PO PRN ×2 (16:33→22:14)
--- NOTE | 2017-05-03 19:26 | US ---
PROCEDURE: Limited abdominal ultrasound HISTORY: Pancreatic CA. Evaluate ascites for malignant cells PHYSICIAN(S): Chicho Trujillo MD. TECHNIQUE: Sonography of the abdomen was performed in all 4 quadrants. Only a trace amount of fluid was visualized on sonography. There was not enough fluid for diagnostic or therapeutic paracentesis. IMPRESSION: Trace amount of ascites. Not enough fluid for diagnostic or therapeutic paracentesis
[2017-05-04] MEDS: Oxycodone/Acetaminophen 5/325 mg Tab PO PRN ×2 (05:51→13:25)
[2017-05-04] MEDS: Amylase/Lipase/Protease 5,000 Units ECC PO SCH ×3 (08:08→17:22)
[2017-05-04] MEDS: Pantoprazole 40 mg EC Tab PO SCH (08:08)
[2017-05-04] MEDS: Insulin Reg-LOW-Coverage SC SCH ×3 (08:08→17:21)
[2017-05-04] MEDS: Meropenem 1g/NS 100mL IVPB 1 GM/100 ML PIGGYBACK IVPB SCH (09:32)
[2017-05-04] MEDS: POLYETHYLENE GLYCOL 3350 17 GM/Dose PACKET PO SCH ×2 (09:32→09:42)
--- NOTE | 2017-05-04 11:03 | CP.PCM.PN ---
Subjective - Date & Time of Evaluation Date of Evaluation: 05/04/17 Time of Evaluation: 10:55 - Subjective Subjective: Patient seen and examined at bedside. Patient with daughter at bedside. Patient with complaints of abdominal pain at this time. Also with complaints of leg pain. Denies chest pain, shortness of breath, nausea, vomiting, diarrhea, fever , chills. Objective - Vital Signs/Intake and Output Vital Signs (last 24 hours): Temp Pulse Resp BP Pulse Ox 98.4 F 78 20 135/93 H 98 05/04/17 07:00 05/04/17 07:00 05/04/17 07:00 05/04/17 07:00 05/04/17 07:00 Intake and Output: 05/04/17 05/04/17 06:59 18:59 Intake Total 100 Output Total 1440 Balance -1340 - Medications Medications: Current Medications Acetaminophen (Tylenol 325mg Tab) 650 mg PO Q6H PRN PRN Reason: Fever >100.4 F Acetaminophen (Tylenol 325mg Tab) 325 mg PO DAILY [facility] Last Admin: 05/04/17 09:31 Dose: 325 mg Amylase (Pancrease 57740 U-5000 U-86394 U) 5,000 unit PO ACTID [facility] Last Admin: 05/04/17 08:08 Dose: 5,000 unit Doxycycline Hyclate (Doryx) 100 mg PO Q12 [facility] PRN Reason: Protocol Stop: 05/06/17 22:01 Last Admin: 05/04/17 09:32 Dose: 100 mg Daptomycin 420 mg/ Sodium (Chloride) 100 mls @ 200 mls/hr IV Q24H [facility] Stop: 05/25/17 19:31 Last Admin: 05/03/17 18:32 Dose: 200 mls/hr Meropenem/Sodium Chloride (Meropenem 1g/Ns 100ml Ivpb) 1 gm in 100 mls @ 200 mls/hr IVPB Q12 [facility] Last Admin: 05/04/17 09:32 Dose: 200 mls/hr Insulin Human Regular (Humulin R Low) 0 units SC ACHS [facility] PRN Reason: Protocol Last Admin: 05/04/17 08:08 Dose: Not Given Levetiracetam (Keppra) 250 mg PO BID [facility] Last Admin: 05/04/17 09:32 Dose: 250 mg Mupirocin (Bactroban Ointment) 0 gm TOP DAILY [facility] Last Admin: 05/04/17 09:33 Dose: Not Given Oxycodone/Acetaminophen (Percocet 5/325 Mg Tab) 1 tab PO Q6H PRN PRN Reason: Pain, moderate (4-7) Stop: 05/06/17 12:57 Last Admin: 05/04/17 05:51 Dose: 1 tab Pantoprazole Sodium (Protonix Ec Tab) 40 mg PO ACB [facility] Last Admin: 05/04/17 08:08 Dose: 40 mg Polyethylene Glycol (Miralax) 17 gm PO DAILY [facility] Last Admin: 05/04/17 09:42 Dose: Not Given - Labs Labs: 05/02/17 06:40 05/02/17 08:00 PT 13.4 SECONDS (9.4-12.5) H 04/25/17 06:30 INR 1.16 (0.93-1.08) H 04/25/17 06:30 APTT 35.8 Seconds (25.1-36.5) 04/25/17 06:30 - Constitutional Appears: Non-toxic, No Acute Distress - Head Exam Head Exam: ATRAUMATIC, NORMAL INSPECTION, NORMOCEPHALIC - Respiratory Exam Respiratory Exam: Clear to Ausculation Bilateral, NORMAL BREATHING PATTERN - Cardiovascular Exam Cardiovascular Exam: RRR, +S1, +S2 - GI/Abdominal Exam GI & Abdominal Exam: Soft, Tenderness (Diffuse), Normal Bowel Sounds - Extremities Exam Extremities Exam: Normal Inspection. absent: Calf Tenderness, Pedal Edema - Neurological Exam Neurological Exam: Alert, Awake, Oriented x3 - Psychiatric Exam Psychiatric exam: Normal Affect, Normal Mood - Skin Skin Exam: Dry, Normal Color, Warm Assessment and Plan - Assessment and Plan (Free Text) Plan: 76 y/o M with past medical history of Pancreatic Adenocarcinoma, left hip fracture s/p repair, DM2, and CAD s/p triple CABG presents with history of pancreatic adenocarcinoma. Patient with advancing pancreatic carcinoma. IR is consulted at this time for a paracentesis. However, due to small amount of ascites, paracentesis was not performed. After lengthy discussion with patient and daughter, we informed them that at this time supportive therapy would be the appropriate course of treatment for the patient with all his current ailments. In the future, once patient is more stable, he may be reevaluated for further treatment. Prognosis is poor. We will continue to follow closely. Plan discussed with Dr. Bautista. See, PGY-2
--- NOTE | 2017-05-04 12:07 | CP.PCM.PN ---
<Elisa Campbell - Last Filed: 05/04/17 12:05> Subjective - Date & Time of Evaluation Date of Evaluation: 05/04/17 Time of Evaluation: 10:45 - Subjective Subjective: Seen and examined at the bedside earlier today, daughter visiting. Patient is awake and alert, did not get paracentesis, not enough fluid to tap. Patient denies nausea, vomiting, or abdominal pain. He is tolerating oral intake. Patient reported to have BMs but at times small amount or no BM as per nursing. No reports of bleeding. PTC drain continues to drain dark green bile. No reports of overt GI bleed. Objective - Vital Signs/Intake and Output Vital Signs (last 24 hours): Temp Pulse Resp BP Pulse Ox 98.4 F 78 20 135/93 H 98 05/04/17 07:00 05/04/17 07:00 05/04/17 07:00 05/04/17 07:00 05/04/17 07:00 Intake and Output: 05/04/17 05/04/17 06:59 18:59 Intake Total 100 Output Total 1440 Balance -1340 - Medications Medications: Current Medications Acetaminophen (Tylenol 325mg Tab) 650 mg PO Q6H PRN PRN Reason: Fever >100.4 F Acetaminophen (Tylenol 325mg Tab) 325 mg PO DAILY [facility] Last Admin: 05/04/17 09:31 Dose: 325 mg Amylase (Pancrease 64771 U-5000 U-42677 U) 5,000 unit PO ACTID [facility] Last Admin: 05/04/17 08:08 Dose: 5,000 unit Doxycycline Hyclate (Doryx) 100 mg PO Q12 [facility] PRN Reason: Protocol Stop: 05/06/17 22:01 Last Admin: 05/04/17 09:32 Dose: 100 mg Daptomycin 420 mg/ Sodium (Chloride) 100 mls @ 200 mls/hr IV Q24H [facility] Stop: 05/25/17 19:31 Last Admin: 05/03/17 18:32 Dose: 200 mls/hr Meropenem/Sodium Chloride (Meropenem 1g/Ns 100ml Ivpb) 1 gm in 100 mls @ 200 mls/hr IVPB Q12 [facility] Last Admin: 05/04/17 09:32 Dose: 200 mls/hr Insulin Human Regular (Humulin R Low) 0 units SC ACHS [facility] PRN Reason: Protocol Last Admin: 05/04/17 08:08 Dose: Not Given Levetiracetam (Keppra) 250 mg PO BID [facility] Last Admin: 05/04/17 09:32 Dose: 250 mg Mupirocin (Bactroban Ointment) 0 gm TOP DAILY [facility] Last Admin: 05/04/17 09:33 Dose: Not Given Oxycodone/Acetaminophen (Percocet 5/325 Mg Tab) 1 tab PO Q6H PRN PRN Reason: Pain, moderate (4-7) Stop: 05/06/17 12:57 Last Admin: 05/04/17 05:51 Dose: 1 tab Pantoprazole Sodium (Protonix Ec Tab) 40 mg PO ACB [facility] Last Admin: 05/04/17 08:08 Dose: 40 mg Polyethylene Glycol (Miralax) 17 gm PO DAILY [facility] Last Admin: 05/04/17 09:42 Dose: Not Given - Labs Labs: 05/02/17 06:40 05/02/17 08:00 PT 13.4 SECONDS (9.4-12.5) H 04/25/17 06:30 INR 1.16 (0.93-1.08) H 04/25/17 06:30 APTT 35.8 Seconds (25.1-36.5) 04/25/17 06:30 - Constitutional Appears: No Acute Distress - Eye Exam Eye Exam: Normal appearance - ENT Exam ENT Exam: Mucous Membranes Moist - Respiratory Exam Respiratory Exam: NORMAL BREATHING PATTERN. absent: Respiratory Distress - Cardiovascular Exam Cardiovascular Exam: +S1, +S2 - GI/Abdominal Exam GI & Abdominal Exam: Soft, Normal Bowel Sounds. absent: Guarding, Tenderness, Rebound Additional comments: positive PTC drain, dressing is in place try and intact. - Extremities Exam Extremities Exam: absent: Calf Tenderness Additional comments: heels of bed - Neurological Exam Neurological Exam: Alert, Awake, Oriented x3 - Skin Skin Exam: Dry, Warm Assessment and Plan - Assessment and Plan (Free Text) Assessment: Assessment: Improving Leukocytosis/Sepsis, bacteremia Seizure Pancreatic cancer status post biliary stents, status post CT scan showing nonvisualization of the metallic stent, no on 04/25/ s/p PTC biliary drain Elevated LFT History of diabetes mellitus Plan: heart healthy soft diet increase Miralax to BID, hold for loose stools or >2/day on Pancreatic enzymes prior to meals Continue IV antibiotics on Keppra pain mgt Monitor LFTs Continue GI prophylaxis SCD while in bed plan for TCU for antibiotics Seen and discussed with Dr. Bradley. <Yomaira Bradley V - Last Filed: 05/04/17 23:57> Objective - Vital Signs/Intake and Output Vital Signs (last 24 hours): Temp Pulse Resp BP Pulse Ox 98.6 F 79 18 136/90 96 05/04/17 16:02 05/04/17 16:02 05/04/17 16:02 05/04/17 16:02 05/04/17 16:02 Intake and Output: 05/04/17 05/05/17 18:59 06:59 Intake Total 300 Output Total 600 Balance -300 - Labs Labs: 05/02/17 06:40 05/02/17 08:00 PT 13.4 SECONDS (9.4-12.5) H 04/25/17 06:30 INR 1.16 (0.93-1.08) H 04/25/17 06:30 APTT 35.8 Seconds (25.1-36.5) 04/25/17 06:30 Attending/Attestation - Attestation I have personally seen and examined this patient.: Yes I have fully participated in the care of the patient.: Yes I have reviewed all pertinent clinical information, including history, physical exam and plan: Yes Notes (Text): This is an addendum to GI progress report dictated by Elisa Campbell APN.The patient was seen and examined earlier. Medical records, lab studies, imagings were reviewed. Last 24 hours events reviewed. Agreed with the above treatment plan as outlined in Eilsa Campbell APN's notes the with the addition of the following we Patient was felt to have very small amount of ascites for IR to do aspiration of ascitic fluid Feel slightly better On examination abdomen soft mild tenderness on deep palpation completed antibiotics as per ID Follow-up LFTs Oncology follow-up Internalization incision of the stent was infection improves antibiotics as per ID 05/04/17 23:53
--- NOTE | 2017-05-04 12:37 | CP.PCM.PN ---
Subjective - Date & Time of Evaluation Date of Evaluation: 05/03/17 Time of Evaluation: 12:10 - Subjective Subjective: Having loose bowel movement, no vomiting, no abdominal pain, no fevers. Objective - Vital Signs/Intake and Output Vital Signs (last 24 hours): Temp Pulse Resp BP Pulse Ox 97.8 F 84 20 143/96 H 98 05/03/17 06:00 05/03/17 06:00 05/03/17 06:00 05/03/17 06:00 05/03/17 06:00 Intake and Output: 05/03/17 05/03/17 06:59 18:59 Intake Total 300 Output Total 1020 Balance -1020 300 - Medications Medications: Current Medications Amylase (Pancrease 08102 U-5000 U-69971 U) 5,000 unit PO ACTID [facility] Last Admin: 05/03/17 08:37 Dose: 5,000 unit Doxycycline Hyclate (Doryx) 100 mg PO Q12 [facility] PRN Reason: Protocol Stop: 05/06/17 22:01 Last Admin: 05/03/17 10:26 Dose: 100 mg Daptomycin 420 mg/ Sodium (Chloride) 100 mls @ 200 mls/hr IV Q24H [facility] Stop: 05/25/17 19:31 Last Admin: 05/02/17 20:17 Dose: 200 mls/hr Meropenem/Sodium Chloride (Meropenem 1g/Ns 100ml Ivpb) 1 gm in 100 mls @ 200 mls/hr IVPB Q12 [facility] Last Admin: 05/03/17 10:26 Dose: 200 mls/hr Insulin Human Regular (Humulin R Low) 0 units SC ACHS [facility] PRN Reason: Protocol Last Admin: 05/03/17 08:35 Dose: 1 units Levetiracetam (Keppra) 250 mg PO BID [facility] Last Admin: 05/03/17 10:28 Dose: 250 mg Mupirocin (Bactroban Ointment) 0 gm TOP DAILY [facility] Last Admin: 05/02/17 11:09 Dose: 1 applic Pantoprazole Sodium (Protonix Ec Tab) 40 mg PO ACB [facility] Last Admin: 05/03/17 08:40 Dose: 40 mg Polyethylene Glycol (Miralax) 17 gm PO DAILY [facility] Last Admin: 05/03/17 10:26 Dose: 17 gm - Labs Labs: 05/02/17 06:40 05/02/17 08:00 PT 13.4 SECONDS (9.4-12.5) H 04/25/17 06:30 INR 1.16 (0.93-1.08) H 04/25/17 06:30 APTT 35.8 Seconds (25.1-36.5) 04/25/17 06:30 - Constitutional Appears: Cachectic, Chronically Ill - Head Exam Head Exam: NORMAL INSPECTION - ENT Exam ENT Exam: Mucous Membranes Moist - Neck Exam Neck Exam: absent: Meningismus - Respiratory Exam Respiratory Exam: Decreased Breath Sounds - Cardiovascular Exam Cardiovascular Exam: +S1, +S2 - GI/Abdominal Exam GI & Abdominal Exam: Soft. absent: Tenderness Assessment and Plan - Assessment and Plan (Free Text) Plan: Assessment severe sepsis due to MRSA bacteremia R/O biliary stent infection; new onset increased leukocytosis R/O new onset sepsis from bilateral HCAP diarrhea R/O C. diff. history of severe sepsis due to methicillin-resistant Staph aureus bacteremia, R /O due to bilateral lower extremity cellulitis R/O biliary tree infection chronic CHF in this patient with CAD pancreatic head mass, S/P EUS and percutaneous drain placement S/P biliary stent placement DM recent left hip fracture S/P surgery Plan continue Daptomycin (day 16), Doxycycline and Merrem (day 4); CT A/P showing bibasilar infiltrates; should be on 2-3 weeks of Daptomycin check stool for C. diff. overall prognosis is poor
--- NOTE | 2017-05-04 14:06 | CP.PCM.PN ---
Subjective - Date & Time of Evaluation Date of Evaluation: 05/04/17 Time of Evaluation: 14:03 - Subjective Subjective: Mr. Ibarra was seen and examined at the bedside. He is alert, oriented. He states of having frequent bowel movements, per staff C-diff stool was already sent. He denies any headache, lightheadedness, nausea, vomiting. He is able to follow simple commands. He remains on contact isolation for MRSA. There was no untoward events overnight. Objective - Vital Signs/Intake and Output Vital Signs (last 24 hours): Temp Pulse Resp BP Pulse Ox 98.4 F 78 20 135/93 H 98 05/04/17 07:00 05/04/17 07:00 05/04/17 07:00 05/04/17 07:00 05/04/17 07:00 Intake and Output: 05/04/17 05/04/17 06:59 18:59 Intake Total 100 Output Total 1440 Balance -1340 - Medications Medications: Current Medications Acetaminophen (Tylenol 325mg Tab) 650 mg PO Q6H PRN PRN Reason: Fever >100.4 F Acetaminophen (Tylenol 325mg Tab) 325 mg PO DAILY [facility] Last Admin: 05/04/17 09:31 Dose: 325 mg Amylase (Pancrease 01547 U-5000 U-39956 U) 5,000 unit PO ACTID [facility] Last Admin: 05/04/17 12:33 Dose: 5,000 unit Doxycycline Hyclate (Doryx) 100 mg PO Q12 [facility] PRN Reason: Protocol Stop: 05/06/17 22:01 Last Admin: 05/04/17 09:32 Dose: 100 mg Daptomycin 420 mg/ Sodium (Chloride) 100 mls @ 200 mls/hr IV Q24H [facility] Stop: 05/25/17 19:31 Last Admin: 05/03/17 18:32 Dose: 200 mls/hr Meropenem/Sodium Chloride (Meropenem 1g/Ns 100ml Ivpb) 1 gm in 100 mls @ 200 mls/hr IVPB Q12 [facility] Last Admin: 05/04/17 09:32 Dose: 200 mls/hr Insulin Human Regular (Humulin R Low) 0 units SC ACHS [facility] PRN Reason: Protocol Last Admin: 05/04/17 12:33 Dose: 2 units Levetiracetam (Keppra) 250 mg PO BID [facility] Last Admin: 05/04/17 09:32 Dose: 250 mg Mupirocin (Bactroban Ointment) 0 gm TOP DAILY [facility] Last Admin: 05/04/17 09:33 Dose: Not Given Oxycodone/Acetaminophen (Percocet 5/325 Mg Tab) 1 tab PO Q6H PRN PRN Reason: Pain, moderate (4-7) Stop: 05/06/17 12:57 Last Admin: 05/04/17 13:25 Dose: 1 tab Pantoprazole Sodium (Protonix Ec Tab) 40 mg PO ACB [facility] Last Admin: 05/04/17 08:08 Dose: 40 mg Polyethylene Glycol (Miralax) 17 gm PO DAILY [facility] - Labs Labs: 05/02/17 06:40 05/02/17 08:00 PT 13.4 SECONDS (9.4-12.5) H 04/25/17 06:30 INR 1.16 (0.93-1.08) H 04/25/17 06:30 APTT 35.8 Seconds (25.1-36.5) 04/25/17 06:30 - Constitutional Appears: No Acute Distress - Head Exam Head Exam: NORMAL INSPECTION - Neurological Exam Neurological Exam: Alert, Awake Neuro motor strength exam: Left Upper Extremity: 5, Right Upper Extremity: 5, Left Lower Extremity: 4, Right Lower Extremity: 4 Additional comments: Neurological unchanged from previous examination. Assessment and Plan (1) Seizure Assessment & Plan: se discussed with Dr. Cody, continue all current medical, physical therapies. There is no new recommendations from neurology. Status: Acute
--- NOTE | 2017-05-04 15:19 | PN ---
DATE: 05/03/2017 SUBJECTIVE: The patient was seen this Tuesday in room 572, bed 2 with his daughter at the bedside. He is in bed, comfortable, awake, alert, clear, and in good spirit. His white count has finally started to come down. He continues on triple antibiotics. He is scheduled for paracentesis later today. PHYSICAL EXAMINATION: ABDOMEN: Soft, nontender. EXTREMITIES: Thin. No edema. IMPRESSION: Pancreatic cancer, status post percutaneous drainage biliary tree with drain still in place, draining clear bilious fluid. PLAN: Paracentesis today and will determine the benefit and effectiveness of chemotherapy. Case discussed with the patient and the daughter at the bedside. We will await cytology and paracentesis results. Rehan Jeff MD MTDDani
[2017-05-04 16:06] VITALS: BP 136/90; PULSE 79; RESP 18; TEMP 98.6; O2SAT 96
[2017-05-04] MEDS ORDERED: POLYETHYLENE GLYCOL 3350 17 GM/Dose PACKET PO SCH (18:00)
[2017-05-04] MEDS ORDERED: Atropine-Diphenoxylate 0.025-2.5 mg Tab PO SCH (20:15)
--- NOTE | 2017-05-04 23:24 | PN ---
DATE: 05/04/2017 DAILY PROGRESS NOTE I would like today's progress note to be read as follows if you would be so kind. SUBJECTIVE: The patient is a 76-year-old male, who was admitted to [facility] 18 days ago. He has a history of pancreatic carcinoma. He is status post hip fracture and surgical repair approximately 2 months ago. During his hospital stay, he received biliary stents. More recently, he has been showing severe leukocytosis. It was found to be MRSA positive bacteremia. He also has a history of congestive heart failure and coronary artery disease. When seen today, his son and daughter are at bedside. The patient is awake, alert, oriented. He is feeling well. He is receiving daptomycin, doxycycline and Merrem for his sepsis/bacteremia. He has bibasilar infiltrates on CAT scan. He has been complaining of constant bowel movements. The most recent stools were negative for C. difficile. These were done 8 days ago on 27 of April. He grew MRSA out of his left heel, which had become abraded during the hospital stay. He also had Staph aureus and MRSA in blood cultures from 16 of April. So at this point, we are continuing with the antibiotics. After ultrasound of the abdomen was performed, Dr. Trujillo decided not to do a paracentesis this morning, as there was not enough fluid. I will be starting the patient on Lomotil for his chronic diarrhea. I will start just twice a day for now, and we will slowly increase the dosage if needed. The patient is DNR/DNI passed status. We are aggressively treating the patient, however, respecting the DNR/DNI, and keeping the patient comfortable. Cody Jeff MD
[2017-05-05] MEDS ORDERED: POLYETHYLENE GLYCOL 3350 17 GM/Dose PACKET PO SCH (10:00)
== END 2017-05-04 21:41 | DRG 871 ==
LOC: ED 10:28 → ERH 14:34 → 3RSO 19:19 → 5RSO 04-21 13:48
PROVIDERS: ADMIT Hospitalist; ATTEND Internal Medicine
PROC: 0FJB8ZZ Inspection of Hepatobiliary Duct, Via Natural or Artificial Opening Endoscopic (ICD-10-PCS; principal; 2017-04-22 15:00)
PROC: 0DJ08ZZ Inspection of Upper Intestinal Tract, Via Natural or Artificial Opening Endoscopic (ICD-10-PCS; 2017-04-22 15:00)
PROC: 0F9930Z Drainage of Common Bile Duct with Drainage Device, Percutaneous Approach (ICD-10-PCS; 2017-04-25)
PROC: BW40ZZZ Ultrasonography of Abdomen (ICD-10-PCS; 2017-05-03)
DX: A41.02 Sepsis due to Methicillin resistant Staphylococcus aureus (principal); J18.9 Pneumonia, unspecified organism; R64 Cachexia; E11.622 Type 2 diabetes mellitus with other skin ulcer; K83.1 Obstruction of bile duct; I08.1 Rheumatic disorders of both mitral and tricuspid valves; L89.623 Pressure ulcer of left heel, stage 3; E11.649 Type 2 diabetes mellitus with hypoglycemia without coma; G40.409 Other generalized epilepsy and epileptic syndromes, not intractable, without status epilepticus; I50.9 Heart failure, unspecified; C25.0 Malignant neoplasm of head of pancreas; J44.0 Chronic obstructive pulmonary disease with (acute) lower respiratory infection; E87.6 Hypokalemia; I25.10 Atherosclerotic heart disease of native coronary artery without angina pectoris; Z66 Do not resuscitate; R65.20 Severe sepsis without septic shock; R68.0 Hypothermia, not associated with low environmental temperature; K56.41 Fecal impaction; L89.619 Pressure ulcer of right heel, unspecified stage; Z79.4 Long term (current) use of insulin; Z74.01 Bed confinement status; Z91.19 Patient's noncompliance with other medical treatment and regimen; Z68.22 Body mass index [BMI] 22.0-22.9, adult; Z95.1 Presence of aortocoronary bypass graft; Z87.891 Personal history of nicotine dependence; Z95.5 Presence of coronary angioplasty implant and graft

== ENCOUNTER 2017-05-04 20:37 | Inpatient (IN) | payer MEDICARE, OTHER ==
[2017-05-04] MEDS: Insulin Reg-LOW-Coverage SC SCH (23:00)
[2017-05-04] MEDS: Meropenem 1,000 MG in Sodium Chloride 0.9% 100 ML IVPB SCH (23:00)
[2017-05-05] MEDS: Oxycodone/Acetaminophen 5/325 mg Tab PO PRN ×3 (00:44→18:34)
[2017-05-05 04:57] VITALS: BMI 23.4
[2017-05-05] MEDS: Pantoprazole 40 mg EC Tab PO SCH (06:34)
[2017-05-05] MEDS: Insulin Reg-LOW-Coverage SC SCH ×4 (06:37→22:40)
[2017-05-05] MEDS: Amylase/Lipase/Protease 5,000 Units ECC PO SCH ×3 (08:19→17:23)
--- NOTE | 2017-05-05 08:50 | PN ---
DATE: 05/04/2017 SUBJECTIVE: This 76-year-old male seen at bedside for followup bilateral heel ulcers. The patient refuses to wear the Multi Podus boots although he is pretty compliant with keeping the heels off the bed using pillows. He is seen without any dressings in place. He states that they fall off and nobody replaces them. PHYSICAL EXAMINATION: VITAL SIGNS: Noted. His temperature is 98.6, his blood pressure is 136/90, respirations are 18, and the O2 sat is 96. LABORATORY DATA: The patient's labs were reviewed. His white blood cell count is 12.9 that is down from 36. His H&H is 9.2 and 28.6 and the platelets are 410. His microbiology shows MRSA from the left foot. His blood cultures with no growth after 5 days and his urine culture showed no growth and C. diff was negative. The patient's right lower extremity had a superficial skin tear, which is now with a fibrotic eschar. No signs of infection. No redness. No fluctuance and very minimal pain. His left heel has a DTI on the Chantal deformity, which is resolving. He also has a small ulceration on the medial portion of the posterior heel that has no sinus tract, it is with fibrous tissue at the wound bed and there is no active signs of infection. ASSESSMENT: Resolving wounds, bilateral heels. PLAN OF TREATMENT: Continue local care. A Anna was added to the , dressing to keep it in place and he will be seen in followup. Khadra Curry DPM
[2017-05-05] MEDS: Meropenem 1,000 MG in Sodium Chloride 0.9% 100 ML IVPB SCH ×2 (10:40→17:24)
--- NOTE | 2017-05-05 14:02 | CP.PCM.PN ---
Subjective - Date & Time of Evaluation Date of Evaluation: 05/05/17 Time of Evaluation: 13:57 - Subjective Subjective: Mr. Ibarra was seen and examined at the bedside. He is alert, oriented. He claims of feeling sleepy not confused. He is able to answer and follow simple commands appropriately. He is able to feed himself independently. There was no untoward events overnight. Objective - Vital Signs/Intake and Output Vital Signs (last 24 hours): Temp Pulse Resp BP Pulse Ox 97.8 F 86 18 152/92 H 97 05/05/17 10:16 05/05/17 10:16 05/05/17 10:16 05/05/17 10:16 05/05/17 10:16 Intake and Output: 05/05/17 05/05/17 06:59 18:59 Output Total 2049 Balance -2049 - Medications Medications: Current Medications Acetaminophen (Tylenol 325mg Tab) 650 mg PO Q6H PRN; Protocol PRN Reason: Fever >100.4 F Acetaminophen (Tylenol 325mg Tab) 325 mg PO DAILY [facility] PRN Reason: Protocol Last Admin: 05/05/17 10:43 Dose: 325 mg Amylase (Pancrease 74182 U-5000 U-90551 U) 5,000 unit PO ACTID [facility] PRN Reason: Protocol Last Admin: 05/05/17 12:47 Dose: 5,000 unit Doxycycline Hyclate (Doryx) 100 mg PO Q12 [facility] PRN Reason: Protocol Last Admin: 05/05/17 10:41 Dose: 100 mg Daptomycin 420 mg/ Sodium (Chloride) 100 mls @ 200 mls/hr IV Q24H [facility] PRN Reason: Protocol Stop: 05/09/17 18:01 Meropenem 1,000 mg/ Sodium (Chloride) 100 mls @ 200 mls/hr IVPB 0600,1800 [facility] PRN Reason: Protocol Stop: 05/07/17 18:01 Insulin Human Regular (Humulin R Low) 0 units SC ACHS [facility] PRN Reason: Protocol Last Admin: 05/05/17 12:46 Dose: 1 units Levetiracetam (Keppra) 250 mg PO BID [facility] PRN Reason: Protocol Last Admin: 05/05/17 10:41 Dose: 250 mg Mupirocin (Bactroban Ointment) 1 gm TOP DAILY [facility] PRN Reason: Protocol Last Admin: 05/05/17 10:40 Dose: 1 applic Oxycodone/Acetaminophen (Percocet 5/325 Mg Tab) 1 tab PO Q6H PRN; Protocol PRN Reason: Pain, moderate (4-7) Stop: 05/07/17 22:53 Last Admin: 05/05/17 08:31 Dose: 1 tab Pantoprazole Sodium (Protonix Ec Tab) 40 mg PO 0600 [facility] PRN Reason: Protocol Last Admin: 05/05/17 06:34 Dose: 40 mg - Constitutional Appears: No Acute Distress - Head Exam Head Exam: NORMAL INSPECTION - Neurological Exam Neurological Exam: Alert, Awake, Oriented x3 Neuro motor strength exam: Left Upper Extremity: 5, Right Upper Extremity: 5, Left Lower Extremity: 4, Right Lower Extremity: 4 Additional comments: He is able to answer questions appropriately and follow simple commands. Sensation remains intact. Assessment and Plan (1) Seizure Assessment & Plan: Case discussed with Dr. Cody, continue all current medical, physical therapies. There is no new recommendations from neurology. Status: Acute
--- NOTE | 2017-05-05 16:45 | CP.PCM.PN ---
Subjective - Date & Time of Evaluation Date of Evaluation: 05/05/17 Time of Evaluation: 10:20 - Subjective Subjective: Seen and examined at the bedside earlier today, chart review. Daughter at bedside. Transferred to TCU yesterday. Patient status post soft brown BM this a.m., no nausea, vomiting, or abdominal pain reported. No acute overnight events. Objective - Vital Signs/Intake and Output Vital Signs (last 24 hours): Temp Pulse Resp BP Pulse Ox 98.3 F 84 18 137/81 96 05/05/17 16:24 05/05/17 16:24 05/05/17 16:24 05/05/17 16:24 05/05/17 16:24 Intake and Output: 05/05/17 05/05/17 06:59 18:59 Output Total 2049 300 Balance -2049 -300 - Medications Medications: Current Medications Acetaminophen (Tylenol 325mg Tab) 650 mg PO Q6H PRN; Protocol PRN Reason: Fever >100.4 F Acetaminophen (Tylenol 325mg Tab) 325 mg PO DAILY [facility] PRN Reason: Protocol Last Admin: 05/05/17 10:43 Dose: 325 mg Amylase (Pancrease 40686 U-5000 U-18841 U) 5,000 unit PO ACTID [facility] PRN Reason: Protocol Last Admin: 05/05/17 12:47 Dose: 5,000 unit Doxycycline Hyclate (Doryx) 100 mg PO Q12 [facility] PRN Reason: Protocol Last Admin: 05/05/17 10:41 Dose: 100 mg Daptomycin 420 mg/ Sodium (Chloride) 100 mls @ 200 mls/hr IV Q24H [facility] PRN Reason: Protocol Stop: 05/09/17 18:01 Meropenem 1,000 mg/ Sodium (Chloride) 100 mls @ 200 mls/hr IVPB 0600,1800 [facility] PRN Reason: Protocol Stop: 05/07/17 18:01 Insulin Human Regular (Humulin R Low) 0 units SC ACHS [facility] PRN Reason: Protocol Last Admin: 05/05/17 12:46 Dose: 1 units Levetiracetam (Keppra) 250 mg PO BID [facility] PRN Reason: Protocol Last Admin: 05/05/17 10:41 Dose: 250 mg Mupirocin (Bactroban Ointment) 1 gm TOP DAILY [facility] PRN Reason: Protocol Last Admin: 05/05/17 10:40 Dose: 1 applic Oxycodone/Acetaminophen (Percocet 5/325 Mg Tab) 1 tab PO Q6H PRN; Protocol PRN Reason: Pain, moderate (4-7) Stop: 05/07/17 22:53 Last Admin: 05/05/17 08:31 Dose: 1 tab Pantoprazole Sodium (Protonix Ec Tab) 40 mg PO 0600 [facility] PRN Reason: Protocol Last Admin: 05/05/17 06:34 Dose: 40 mg - Constitutional Appears: No Acute Distress - Eye Exam Eye Exam: Normal appearance. absent: Scleral icterus - ENT Exam ENT Exam: Mucous Membranes Moist - Respiratory Exam Respiratory Exam: NORMAL BREATHING PATTERN. absent: Respiratory Distress - Cardiovascular Exam Cardiovascular Exam: +S1, +S2 - GI/Abdominal Exam GI & Abdominal Exam: Soft, Normal Bowel Sounds. absent: Guarding, Tenderness, Rebound Additional comments: PTC drain, insertion site nontender. Draining bilious fluid. - Extremities Exam Extremities Exam: absent: Calf Tenderness, Pedal Edema - Neurological Exam Neurological Exam: Alert, Awake, Oriented x3 - Skin Skin Exam: Dry, Warm Assessment and Plan - Assessment and Plan (Free Text) Assessment: Assessment: Sepsis, bacteremia/MRSA Seizure Pancreatic cancer status post biliary stents, status post CT scan showing nonvisualization of the metallic stent, no on 04/25/ s/p PTC biliary drain Elevated LFT History of diabetes mellitus Plan: heart healthy soft diet continue Miralax daily, hold for loose stools or >2/day on Pancreatic enzymes prior to meals Continue IV antibiotics, as per ID on Keppra pain mgt Monitor LFTs Continue GI prophylaxis SCD while in bed as per oncology Seen and discussed with Dr. Bradley.
--- NOTE | 2017-05-05 17:29 | CP.PCM.CON ---
History of Present Illness - History of Present Illness History of Present Illness: 76 year old male with PMH of DM, history of severe sepsis due to methicillin- resistant Staph aureus bacteremia, R/O due to bilateral lower extremity cellulitis R/O biliary tree infection, chronic CHF in this patient with CAD, pancreatic head mass, S/P EUS and percutaneous drain placement S/P biliary stent placement, recent left hip fracture S/P surgery was brought in to [facility] initially because of generalized weakness and was found to have MRSA bacteremia. He also developed probable pneumonia while admitted and is being treated for this. He is now transferred to [facility] for continued medical therapy and physical rehab. Infectious Diseases consult is requested to continue his antibiotic therapy. Currently he is comfortable in bed, no fevers, not in distress, no abdominal pain, no nausea or vomiting, no chest pain, no SOB, no cough or colds, no headache or dizziness, no diarrhea, no dysuria. Review of Systems - Review of Systems All systems: reviewed and no additional remarkable complaints except (as per HPI ) Past Patient History - Infectious Disease Hx of Infectious Diseases: None - Tetanus Immunizations Tetanus Immunization: Unknown - Past Social History Smoking Status: Current Some Days Smoker - CARDIAC Hx Pacemaker: No - PULMONARY Hx Respiratory Disorders: No - NEUROLOGICAL Hx Neurological Disorder: No - HEENT Hx HEENT Problems: No - RENAL Hx Chronic Kidney Disease: No - ENDOCRINE/METABOLIC Hx Diabetes Mellitus Type 2: Yes - HEMATOLOGICAL/ONCOLOGICAL Hx Blood Transfusions: No Hx Blood Transfusion Reaction: No - INTEGUMENTARY Hx Dermatological Problems: No Other/Comment: pancreatic Cancer 12/2016 - MUSCULOSKELETAL/RHEUMATOLOGICAL Hx Falls: Yes - GASTROINTESTINAL Hx Gastrointestinal Disorders: No - GENITOURINARY/GYNECOLOGICAL Hx Genitourinary Disorders: No Other/Comment: pancreatic ca - PSYCHIATRIC Hx Psychophysiologic Disorder: No Hx Depression: No Hx Emotional Abuse: No Hx Physical Abuse: No Hx Substance Use: No - SURGICAL HISTORY Hx Surgeries: Yes - ANESTHESIA Hx Anesthesia Reactions: No Hx Malignant Hyperthermia: No Meds Allergies/Adverse Reactions: Allergies Allergy/AdvReac Type Severity Reaction Status Date / Time No Known Allergies Allergy Verified 04/16/17 16:48 - Medications Medications: Current Medications Acetaminophen (Tylenol 325mg Tab) 650 mg PO Q6H PRN; Protocol PRN Reason: Fever >100.4 F Acetaminophen (Tylenol 325mg Tab) 325 mg PO DAILY [facility] PRN Reason: Protocol Amylase (Pancrease 69932 U-5000 U-63795 U) 5,000 unit PO ACTID [facility] PRN Reason: Protocol Doxycycline Hyclate (Doryx) 100 mg PO Q12 [facility] PRN Reason: Protocol Meropenem 1,000 mg/ Sodium (Chloride) 100 mls @ 200 mls/hr IVPB Q12H [facility] PRN Reason: Protocol Stop: 05/06/17 22:01 Daptomycin 420 mg/ Sodium (Chloride) 100 mls @ 200 mls/hr IV Q24H [facility] PRN Reason: Protocol Stop: 05/09/17 18:01 Insulin Human Regular (Humulin R Low) 0 units SC ACHS [facility] PRN Reason: Protocol Last Admin: 05/04/17 23:00 Dose: Not Given Levetiracetam (Keppra) 250 mg PO BID [facility] PRN Reason: Protocol Mupirocin (Bactroban Ointment) 1 gm TOP DAILY [facility] PRN Reason: Protocol Oxycodone/Acetaminophen (Percocet 5/325 Mg Tab) 1 tab PO Q6H PRN; Protocol PRN Reason: Pain, moderate (4-7) Stop: 05/07/17 22:53 Pantoprazole Sodium (Protonix Ec Tab) 40 mg PO 0600 [facility] PRN Reason: Protocol Physical Exam - Constitutional Appears: Cachectic, Chronically Ill - Head Exam Head Exam: NORMAL INSPECTION - Neck Exam Neck exam: Negative for: Meningismus - Respiratory Exam Respiratory Exam: Decreased Breath Sounds - Cardiovascular Exam Cardiovascular Exam: +S1, +S2 - GI/Abdominal Exam GI & Abdominal Exam: Soft. absent: Tenderness Assessment & Plan - Assessment and Plan (Free Text) Plan: Assessment severe sepsis due to MRSA bacteremia R/O biliary stent infection; new onset increased leukocytosis R/O new onset sepsis from bilateral HCAP diarrhea R/O C. diff. history of severe sepsis due to methicillin-resistant Staph aureus bacteremia, R /O due to bilateral lower extremity cellulitis R/O biliary tree infection chronic CHF in this patient with CAD pancreatic head mass, S/P EUS and percutaneous drain placement S/P biliary stent placement DM recent left hip fracture S/P surgery Plan continue Daptomycin (day 17 of 21), Doxycycline and Merrem (day 4 of 4-7 days) ; CT A/P showing bibasilar infiltrates overall prognosis is poor
[2017-05-06] MEDS: Oxycodone/Acetaminophen 5/325 mg Tab PO PRN ×3 (01:40→21:41)
[2017-05-06] MEDS: Meropenem 1,000 MG in Sodium Chloride 0.9% 100 ML IVPB SCH ×2 (05:31→17:52)
[2017-05-06] MEDS: Pantoprazole 40 mg EC Tab PO SCH (05:31)
[2017-05-06] MEDS: Insulin Reg-LOW-Coverage SC SCH ×4 (07:03→22:10)
[2017-05-06 07:59] LABS: ALB/GLOB RATIO 0.7 (1.1-1.8); ALBUMIN 2.4 g/dL (3.0-4.8); CALCIUM 8.5 mg/dL (8.4-10.5)
[2017-05-06] MEDS: Amylase/Lipase/Protease 5,000 Units ECC PO SCH ×3 (08:11→17:52)
--- NOTE | 2017-05-06 14:24 | CP.PCM.PN ---
Subjective - Date & Time of Evaluation Date of Evaluation: 05/06/17 Time of Evaluation: 14:23 - Subjective Subjective: was seen and examined at the bedside. He is alert, oriented. He is able to answer simple questions and follow commands. He denies any headache, lightheadedness, nausea, or vomiting. There was no untoward events overnight. Objective - Vital Signs/Intake and Output Vital Signs (last 24 hours): Temp Pulse Resp BP Pulse Ox 97.3 F L 75 20 134/78 96 05/06/17 10:44 05/06/17 10:44 05/06/17 10:44 05/06/17 10:44 05/06/17 10:44 Intake and Output: 05/06/17 05/06/17 06:59 18:59 Intake Total 240 Output Total 1750 Balance -1510 - Medications Medications: Current Medications Acetaminophen (Tylenol 325mg Tab) 650 mg PO Q6H PRN; Protocol PRN Reason: Fever >100.4 F Acetaminophen (Tylenol 325mg Tab) 325 mg PO DAILY [facility] PRN Reason: Protocol Last Admin: 05/06/17 10:49 Dose: 325 mg Amylase (Pancrease 58865 U-5000 U-79144 U) 5,000 unit PO ACTID [facility] PRN Reason: Protocol Last Admin: 05/06/17 12:11 Dose: 5,000 unit Doxycycline Hyclate (Doryx) 100 mg PO Q12 [facility] PRN Reason: Protocol Last Admin: 05/06/17 10:48 Dose: 100 mg Daptomycin 420 mg/ Sodium (Chloride) 100 mls @ 200 mls/hr IV Q24H [facility] PRN Reason: Protocol Stop: 05/09/17 18:01 Last Admin: 05/05/17 18:34 Dose: 200 mls/hr Meropenem 1,000 mg/ Sodium (Chloride) 100 mls @ 200 mls/hr IVPB 0600,1800 [facility] PRN Reason: Protocol Stop: 05/07/17 18:01 Last Admin: 05/06/17 05:31 Dose: 200 mls/hr Insulin Human Regular (Humulin R Low) 0 units SC ACHS [facility] PRN Reason: Protocol Last Admin: 05/06/17 12:11 Dose: Not Given Levetiracetam (Keppra) 250 mg PO BID [facility] PRN Reason: Protocol Last Admin: 05/06/17 10:48 Dose: 250 mg Mupirocin (Bactroban Ointment) 1 gm TOP DAILY [facility] PRN Reason: Protocol Last Admin: 05/06/17 09:51 Dose: 1 applic Oxycodone/Acetaminophen (Percocet 5/325 Mg Tab) 1 tab PO Q6H PRN; Protocol PRN Reason: Pain, moderate (4-7) Stop: 05/07/17 22:53 Last Admin: 05/06/17 08:15 Dose: 1 tab Pantoprazole Sodium (Protonix Ec Tab) 40 mg PO 0600 [facility] PRN Reason: Protocol Last Admin: 05/06/17 05:31 Dose: 40 mg - Labs Labs: 05/06/17 07:20 - Constitutional Appears: No Acute Distress - Head Exam Head Exam: NORMAL INSPECTION - Neurological Exam Neurological Exam: Alert, Awake, Oriented x3 Neuro motor strength exam: Left Upper Extremity: 5, Right Upper Extremity: 5, Left Lower Extremity: 4, Right Lower Extremity: 4 Additional comments: Neurological unchanged from previous examination. Assessment and Plan (1) Seizure Assessment & Plan: Case discussed with Dr. Cody, continue all current medical, physical, occupational therapies.There is no new recommendations from neurology. Status: Acute
--- NOTE | 2017-05-06 17:58 | CP.PCM.PN ---
Subjective - Date & Time of Evaluation Date of Evaluation: 05/06/17 Time of Evaluation: 11:40 - Subjective Subjective: Comfortable in bed, no diarrhea, no fevers. Objective - Vital Signs/Intake and Output Vital Signs (last 24 hours): Temp Pulse Resp BP Pulse Ox 98.3 F 84 18 137/81 96 05/05/17 16:24 05/05/17 16:24 05/05/17 16:24 05/05/17 16:24 05/05/17 16:24 Intake and Output: 05/06/17 05/06/17 06:59 18:59 Intake Total 240 Output Total 1750 Balance -1510 - Medications Medications: Current Medications Acetaminophen (Tylenol 325mg Tab) 650 mg PO Q6H PRN; Protocol PRN Reason: Fever >100.4 F Acetaminophen (Tylenol 325mg Tab) 325 mg PO DAILY [facility] PRN Reason: Protocol Last Admin: 05/05/17 10:43 Dose: 325 mg Amylase (Pancrease 52845 U-5000 U-44384 U) 5,000 unit PO ACTID [facility] PRN Reason: Protocol Last Admin: 05/06/17 08:11 Dose: 5,000 unit Doxycycline Hyclate (Doryx) 100 mg PO Q12 [facility] PRN Reason: Protocol Last Admin: 05/05/17 22:05 Dose: 100 mg Daptomycin 420 mg/ Sodium (Chloride) 100 mls @ 200 mls/hr IV Q24H [facility] PRN Reason: Protocol Stop: 05/09/17 18:01 Last Admin: 05/05/17 18:34 Dose: 200 mls/hr Meropenem 1,000 mg/ Sodium (Chloride) 100 mls @ 200 mls/hr IVPB 0600,1800 [facility] PRN Reason: Protocol Stop: 05/07/17 18:01 Last Admin: 05/06/17 05:31 Dose: 200 mls/hr Insulin Human Regular (Humulin R Low) 0 units SC ACHS [facility] PRN Reason: Protocol Last Admin: 05/06/17 07:03 Dose: Not Given Levetiracetam (Keppra) 250 mg PO BID [facility] PRN Reason: Protocol Last Admin: 05/05/17 17:24 Dose: 250 mg Mupirocin (Bactroban Ointment) 1 gm TOP DAILY [facility] PRN Reason: Protocol Last Admin: 05/05/17 10:40 Dose: 1 applic Oxycodone/Acetaminophen (Percocet 5/325 Mg Tab) 1 tab PO Q6H PRN; Protocol PRN Reason: Pain, moderate (4-7) Stop: 05/07/17 22:53 Last Admin: 05/06/17 08:15 Dose: 1 tab Pantoprazole Sodium (Protonix Ec Tab) 40 mg PO 0600 [facility] PRN Reason: Protocol Last Admin: 05/06/17 05:31 Dose: 40 mg - Labs Labs: 05/06/17 07:20 - Constitutional Appears: Cachectic, Chronically Ill - Head Exam Head Exam: NORMAL INSPECTION - Respiratory Exam Respiratory Exam: Decreased Breath Sounds - Cardiovascular Exam Cardiovascular Exam: +S1, +S2 - GI/Abdominal Exam GI & Abdominal Exam: Soft. absent: Tenderness Assessment and Plan - Assessment and Plan (Free Text) Plan: Assessment severe sepsis due to MRSA bacteremia R/O biliary stent infection; new onset increased leukocytosis R/O new onset sepsis from bilateral HCAP diarrhea R/O C. diff. history of severe sepsis due to methicillin-resistant Staph aureus bacteremia, R /O due to bilateral lower extremity cellulitis R/O biliary tree infection chronic CHF in this patient with CAD pancreatic head mass, S/P EUS and percutaneous drain placement S/P biliary stent placement DM recent left hip fracture S/P surgery Plan continue Daptomycin (day 18 of 21), Doxycycline and Merrem (day 5 of 4-7 days) ; CT A/P showing bibasilar infiltrates overall prognosis is poor
[2017-05-07] MEDS: Pantoprazole 40 mg EC Tab PO SCH (05:06)
[2017-05-07] MEDS: Meropenem 1,000 MG in Sodium Chloride 0.9% 100 ML IVPB SCH ×2 (05:07→17:25)
[2017-05-07] MEDS: Oxycodone/Acetaminophen 5/325 mg Tab PO PRN ×4 (05:07→21:53)
[2017-05-07] MEDS: Insulin Reg-LOW-Coverage SC SCH ×4 (06:29→21:52)
[2017-05-07] MEDS: Amylase/Lipase/Protease 5,000 Units ECC PO SCH ×3 (08:13→17:25)
--- NOTE | 2017-05-07 21:07 | PN ---
DATE: SUBJECTIVE: Today is his first day in the Transitional Care Unit, having transferred over to continue antibiotics and begin some physical therapy. At this point in time, we are probably not looking at an aggressive Whipple procedure because of the patient's underlying cardiac condition and an increased rise in tumor. We will continue antibiotics per Infectious Disease and continue physical therapy. As well, we discussed his overall prognosis and a plan of action with his family. Paracentesis was scheduled for yesterday. We will wait any result on that. Rehan Jeff MD MTDD
--- NOTE | 2017-05-07 21:07 | PN ---
DATE: 05/06/2017 SUBJECTIVE: The patient was seen this Tuesday morning in room 302, bed 1 with his daughter at the bedside. He is comfortable, in no acute distress. We spoke about his condition. I encouraged this patient to engage in more physical therapy and activity through the unit to increase his strength and ambulation. Antibiotics continue to infuse for his MRSA sepsis. We will wait input from Oncology as well. Rehan Jeff MD
--- NOTE | 2017-05-08 00:05 | PN ---
DATE: 05/07/2017 SUBJECTIVE: Patient is in bed, in no acute distress, nontoxic. PHYSICAL EXAMINATION: VITAL SIGNS: Temperature is 98, blood pressure is 130/80, respiratory rate 20, heart rate of 79. HEENT: Unremarkable. NECK: Supple. LUNGS: Have decreased breath sounds. HEART: Normal S1, S2. ABDOMEN: Soft. LABORATORY EXAMINATION: Reveals a BUN of 42, creatinine of 1.8. ASSESSMENT AND PLAN: This is a 76-year-old male who was seen early this morning in transitional care unit and the patient has carried a diagnosis of severe sepsis due to methicillin-resistant Staphylococcus aureus bacteremia, rule out biliary stent infection, and new onset of leukocytosis; on daptomycin, day #19 of 21 days and doxycycline, meropenem day #6 of 47 days. Review of orders, daptomycin is active, doxycycline is active. We will follow with you. Jose David Gracia MD
[2017-05-08] MEDS: Oxycodone/Acetaminophen 5/325 mg Tab PO PRN ×5 (01:23→22:15)
[2017-05-08] MEDS: Pantoprazole 40 mg EC Tab PO SCH (05:34)
[2017-05-08] MEDS: Insulin Reg-LOW-Coverage SC SCH ×4 (06:42→22:14)
[2017-05-08] MEDS: Amylase/Lipase/Protease 5,000 Units ECC PO SCH ×3 (08:19→17:44)
[2017-05-08] MEDS ORDERED: Magnesium Hydroxide Susp 30 ml UD PO PRN (10:23)
--- NOTE | 2017-05-08 12:58 | PN ---
DATE: 05/07/2017 The patient was seen this Tuesday morning in Transitional Care Unit with his daughter at the bedside. He is in bed, comfortable but does report some pain and is requesting an increase in his pain medicine. As the nursing staff reported, he was requesting it after about 5 hours or so, not the 6 hours and it is ordered on a 6-hour basis. I spoke with the patient. He seems uncomfortable. He reports pain to be generalized body ache, not a specific abdominal or pancreatic type of pain. I spoke with his daughter who was concerned in the past with lethargy, sedation and his analgesics here in the hospital. This is not a concern at home because he uses no medicine at home and is not on analgesics or narcotics, opiates or benzodiazepines. So, I increased his Percocet to q. 4 h. In the meantime, I encouraged him to engage in the activities in the unit, physical therapy, ambulation, etc. Rehan Jeff MD MTDD
--- NOTE | 2017-05-08 18:54 | PN ---
DATE: 05/08/2017 SUBJECTIVE: Patient was seen in room 319. Patient's mental status is poor overall, has been no fevers, no chills. PHYSICAL EXAMINATION: VITAL SIGNS: Temperature is 98, blood pressure is 140/80, respiratory rate of 20, heart rate of 80. HEENT: Unremarkable. NECK: Supple. LUNGS: Decreased breath sounds. HEART: Normal S1, S2. ABDOMEN: Soft. LABORATORY DATA: Reviewed. ASSESSMENT AND PLAN: This is a 76-year-old male who seen earlier today in room 319 in the Transitional Care initially, was admitted with severe sepsis with methicillin-resistant Staphylococcus aureus bacteremia, biliary source possibly on daptomycin day #20 of 21 days and doxycycline day#7 days. We will discontinue doxycycline and meropenem and one more day of daptomycin. Overall prognosis quite poor for this patient who appears to be chronically ill, cachectic with a low BMI, now on final day of daptomycin tomorrow. Jose David Gracia MD
--- NOTE | 2017-05-08 23:41 | PN ---
DATE: 05/08/2017 SUBJECTIVE: Patient was seen this Tuesday morning in Transitional Care Unit, [facility] and today is day #4 of his 8-day stay on TCU. He continues on IV antibiotics for his MRSA sepsis. Nurse has confirmed with me do not resuscitate order is in effect. Patient was seen in Room 319 with his daughter at the bedside. He was complaining of some constipation. He had small bowel movement, feels he needs to move more. I told him I will order some milk of magnesia on a p.r.n. basis and he was quite pleased with that. He also reported some nausea after taking Percocet, Percocet has been increased to q.4 hour schedule. It helps and provides good level of relief. He would like to continue the Percocet I will add a p.r.n. Zofran. Remainder of the exam is unremarkable. We will continue current level of treatment and antibiotics and then discuss with Oncology during the week regarding the future treatment plans and options. Rehan Jeff MD JOSEF
[2017-05-09] MEDS: Oxycodone/Acetaminophen 5/325 mg Tab PO PRN ×3 (02:24→16:03)
--- NOTE | 2017-05-09 04:19 | PN ---
DATE: SUBJECTIVE: This patient was seen and evaluated earlier today. Discussed with the patient's daughter and also granddaughter, who were at bedside. PHYSICAL EXAMINATION: VITAL SIGNS: The patient is afebrile, blood pressure 127/71, pulse 72. HEENT: Atraumatic and anicteric. NECK: Supple. HEART: S1 and S2 heard. LUNGS: Bilateral air entry present. ABDOMEN: Soft. No tenderness. The patient has a biliary PTC drain present. LABORATORY DATA: No recent labs. IMPRESSION: This is a 76-year-old patient with pancreatic cancer infiltrated into the duodenum, unable to do a selective cannulation by endoscopic retrograde cholangiopancreatography. Status post dislodgement of metal stent, presently has internoexternal billiary stent. The patient has a methicillin-resistant Staphylococcus aureus sepsis. The patient is being on daptomycin. The patient has methicillin-resistant Staphylococcus aureus bacteremia, cholangitis, on doxycycline and meropenem. Continue antibiotics as per Infectious Disease. I did discuss with the patient's family about their concern about the going home with external drain. We will discuss with Dr. Chicho Trujillo and also with oncologist regarding this and also the primary physician regarding internalizing the biliary stent, with followup of the LFTs. Thank you very much for allowing us to participate in the care of the patient. Yomaira Bradley MD MTDDani
[2017-05-09] MEDS: Pantoprazole 40 mg EC Tab PO SCH (05:24)
[2017-05-09] MEDS: Insulin Reg-LOW-Coverage SC SCH ×4 (06:51→22:08)
[2017-05-09 07:12] LABS: BASO # 0.08 K/mm3 (0.0-2.0); BASO % 0.7 % (0.0-3.0); EOS % 8.5 % (1.5-5.0); GRAN # 8.34 (1.4-6.5); GRAN % 73.3 % (50.0-68.0); HEMOGLOBIN 9.4 g/dL (14.0-18.0); LYMPH # 1.4 (1.2-3.4); LYMPH % 12.7 % (22.0-35.0); MEAN CELL VOLUME 83.7 fl (80.0-105.0); MEAN CORPUSCULAR HEMOGLOBIN 26.4 pg (25.0-35.0); MEAN CORPUSCULAR HGB CONC 31.5 g/dl (31.0-37.0); MEAN PLATELET VOLUME 9.9 fl (7.0-11.0); MONO # 0.6 (0.1-0.6); MONO % 4.8 % (1.0-6.0); RBC 3.56 10^6/uL (3.5-6.1); RED CELL DISTRIBUTION WIDTH 15.8 % (11.5-14.5); WHITE BLOOD COUNT 11.4 10^3/ul (4.5-11.0)
[2017-05-09 07:26] LABS: ALB/GLOB RATIO 0.7 (1.1-1.8); ALBUMIN 2.6 g/dL (3.0-4.8)
[2017-05-09] MEDS: Amylase/Lipase/Protease 5,000 Units ECC PO SCH ×3 (07:46→16:03)
--- NOTE | 2017-05-09 08:27 | CON ---
DATE: 05/06/2017 GENITOURINARY CONSULTATION CHIEF COMPLAINT: Falls, pancreatic cancer, seizures. HISTORY OF PRESENT ILLNESS: This is a 76-year-old male, who was seen on the Transitional Care Unit at [facility]. The patient was discharged from the acute care side. He was admitted there after he had a seizure. He has recently been diagnosed with pancreatic cancer and had a repair of a left hip fracture. The patient is now recovering. He has positive blood cultures for Staph aureus and wound culture for MRSA. Urologically, the patient has a Lewis catheter in place at this time and a consultation was requested regarding question of urinary retention. PAST MEDICAL HISTORY: Significant for pancreatic cancer, seizures, MRSA sepsis, cellulitis, congestive heart failure, coronary artery disease, pneumonia. MEDICATIONS: Include Bactroban, daptomycin, Doryx, insulin coverage, Keppra, meropenem, Pancrease, Percocet, Protonix, Tylenol. ALLERGIES: NO KNOWN DRUG ALLERGIES. FAMILY HISTORY: Noncontributory to this admission. SOCIAL HISTORY: Positive for occasional smoking. Denies current EtOH use. REVIEW OF SYSTEMS: These are obtained from the patient, who is answering questions, although he is a poor historian. A 12-point review of systems was obtained. Positives for constipation, positive for some abdominal pain, positive for dizziness and unsteady balance. Other systems reportedly negative. PHYSICAL EXAMINATION GENERAL: The patient is awake and answering questions. He is in no acute distress. VITAL SIGNS: Afebrile, temperature of 97.3, pulse 75, BP 134/78, respirations 20. NECK: Supple. There is no adenopathy. CHEST: Reveals a normal inspiratory effort. CARDIAC: Positive S1 and S2. There is some mild peripheral edema noted. ABDOMEN: Soft, nontender. No rebound or guarding. There is a drain in place. GENITOURINARY: Phallus is normal. There is a Lewis catheter in place draining clear colored urine. Scrotum is normal. Testes bilaterally descended, nontender, no masses. Epididymis are normal. Extremities: There is mild edema. There is no cyanosis noted. LABORATORY DATA: Creatinine 1.8, with a GFR of 37. BUN and creatinine appear to be rising, On urinalysis, 04/27/2017 showed too numerous to count RBCs, 5 to 10 WBCs. Nitrites have been negative. Urine culture from 04/27/2017 showed no growth. Blood and wound cultures as dictated in the history of present illness. On radiologic exam, CT scan of the abdomen and pelvis was done on 04/27/2017 which showed biliary catheter in place, with no ductal dilatation. Kidneys and ureters were unremarkable. No hydronephrosis or solid mass. IMPRESSION: This is a 76-year-old male with pancreatic cancer, biliary drain placed, with MRSA sepsis. Urologically, the patient is currently stable with Lewis catheter in place, rising BUN and creatinine appear to be from dehydration. PLAN: Would be to continue Elwis catheter for now. Given the patient's current conditions, he is not able to ambulate without assistance at this time and is being treated for sepsis. When the patient's condition has improved. I would plan on a voiding trial. The patient reports he had been voiding prior to this admission. If medically possible, I would recommend starting the patient on tamsulosin 0.4 mg given his age, he likely has some component of BPH, and this may help him to void adequately given his debilitated condition. Alternatively, if the patient is unable to void, he can be managed with an indwelling Lewis catheter at this time given the new finding of pancreatic cancer until a plan regarding that is made. Plan should be though to remove the Lewis catheter next week a few days prior to discharge, when the patient's condition has improved. Thank you for allowing us to participate in the care of this patient. We will follow him with you. Nilson Guadalupe MD
--- NOTE | 2017-05-09 13:10 | CP.PCM.CON ---
History of Present Illness - History of Present Illness History of Present Illness: Palliate consult requested by Dr John Jeff Reason: Goals of care/ hospice discussion 76 year old male with history of metastatic pancreatic cancer, jaundice who was recently admitted to the acute care setting with MRSA bactermia /severe sepsis and HCAP. He has since been transitioned to [facility] for completion of antibiotic and deconditioning therapy. PMHX: metastatic pancreatic cancer,CHF,DM, lower extremity cellulitis,s/p billiary stent / percutaneous billiary drain, left hip fx s/p ORIF. Social History: Smoker, no alcohol or drug use.Was living independently. Family History: Non contributory. Advance Care Planning:The patient has an Advanced Directive, he is DNR/DNI. A copy is in the chart Review of Systems:He is weak, jaundiced,with decreased appetite, cachexia, 12 review otherwise negative. Past Patient History - Infectious Disease Hx of Infectious Diseases: None - Tetanus Immunizations Tetanus Immunization: Unknown - Past Social History Smoking Status: Current Some Days Smoker - CARDIAC Hx Pacemaker: No - PULMONARY Hx Respiratory Disorders: No - NEUROLOGICAL Hx Neurological Disorder: No - HEENT Hx HEENT Problems: No - RENAL Hx Chronic Kidney Disease: No - ENDOCRINE/METABOLIC Hx Diabetes Mellitus Type 2: Yes - HEMATOLOGICAL/ONCOLOGICAL Hx Blood Transfusions: No Hx Blood Transfusion Reaction: No - INTEGUMENTARY Hx Dermatological Problems: No Other/Comment: pancreatic Cancer 12/2016 - MUSCULOSKELETAL/RHEUMATOLOGICAL Hx Falls: Yes - GASTROINTESTINAL Hx Gastrointestinal Disorders: No - GENITOURINARY/GYNECOLOGICAL Hx Genitourinary Disorders: No Other/Comment: pancreatic ca - PSYCHIATRIC Hx Psychophysiologic Disorder: No Hx Depression: No Hx Emotional Abuse: No Hx Physical Abuse: No Hx Substance Use: No - SURGICAL HISTORY Hx Surgeries: Yes - ANESTHESIA Hx Anesthesia Reactions: No Hx Malignant Hyperthermia: No Meds Allergies/Adverse Reactions: Allergies Allergy/AdvReac Type Severity Reaction Status Date / Time No Known Allergies Allergy Verified 05/05/17 23:06 - Medications Medications: Current Medications Acetaminophen (Tylenol 325mg Tab) 650 mg PO Q6H PRN; Protocol PRN Reason: Fever >100.4 F Acetaminophen (Tylenol 325mg Tab) 325 mg PO DAILY BARBIE PRN Reason: Protocol Last Admin: 05/09/17 09:02 Dose: 325 mg Amylase (Pancrease 79422 U-5000 U-[id number] U) 5,000 unit PO ACTID [facility] PRN Reason: Protocol Last Admin: 05/09/17 11:57 Dose: 5,000 unit Daptomycin 420 mg/ Sodium (Chloride) 100 mls @ 200 mls/hr IV Q24H [facility] PRN Reason: Protocol Stop: 05/09/17 18:01 Last Admin: 05/08/17 17:41 Dose: 200 mls/hr Insulin Human Regular (Humulin R Low) 0 units SC ACHS [facility] PRN Reason: Protocol Last Admin: 05/09/17 11:58 Dose: 3 units Magnesium Hydroxide (Milk Of Magnesia) 30 ml PO DAILY PRN PRN Reason: Constipation Last Admin: 05/08/17 12:32 Dose: 30 ml Mupirocin (Bactroban Ointment) 1 gm TOP DAILY [facility] PRN Reason: Protocol Last Admin: 05/09/17 09:02 Dose: 1 applic Ondansetron HCl (Zofran Tab) 4 mg PO Q8H PRN PRN Reason: Nausea/Vomiting Oxycodone/Acetaminophen (Percocet 5/325 Mg Tab) 1 tab PO Q4H PRN PRN Reason: Pain, moderate (4-7) Stop: 05/10/17 10:08 Last Admin: 05/09/17 09:01 Dose: 1 tab Pantoprazole Sodium (Protonix Ec Tab) 40 mg PO 0600 [facility] PRN Reason: Protocol Last Admin: 05/09/17 05:24 Dose: 40 mg Physical Exam - Constitutional Appears: Cachectic, Chronically Ill - Head Exam Head Exam: NORMAL INSPECTION - Eye Exam Eye Exam: PERRL - ENT Exam ENT Exam: Mucous Membranes Moist, Normal Oropharynx - Neck Exam Neck exam: Positive for: Normal Inspection - Respiratory Exam Respiratory Exam: Decreased Breath Sounds, NORMAL BREATHING PATTERN - Cardiovascular Exam Cardiovascular Exam: REGULAR RHYTHM, +S1, +S2 - GI/Abdominal Exam GI & Abdominal Exam: Normal Bowel Sounds, Soft Additional comments: left percutaneous drain patient, draining dark green fluid - Extremities Exam Additional comments: bilateral lower extremity edema - Back Exam Back exam: NORMAL INSPECTION - Neurological Exam Neurological exam: Alert - Skin Skin Exam: Dry, Pallor - Additional Findings Additional findings: Palliative performance scale rating 40% Results - Vital Signs Recent Vital Signs: Last Vital Signs Temp 97.6 F 05/08/17 16:00 Pulse 72 05/08/17 16:00 Resp 14 05/08/17 16:00 BP 127/71 05/08/17 16:00 Pulse Ox 89 L 05/08/17 16:00 - Labs Result Diagrams: 05/09/17 06:30 05/09/17 06:30 Labs: Laboratory Results - last 24 hr 05/08/17 05/09/17 05/09/17 21:03 06:30 06:30 WBC 11.4 H RBC 3.56 Hgb 9.4 L Hct 29.8 L MCV 83.7 MCH 26.4 MCHC 31.5 RDW 15.8 H Plt Count 538 H MPV 9.9 Gran % 73.3 H Lymph % (Auto) 12.7 L [place] % (Auto) 4.8 Eos % (Auto) 8.5 H Baso % (Auto) 0.7 Gran # 8.34 H Lymph # (Auto) 1.4 [place] # (Auto) 0.6 Eos # (Auto) 1.0 H Baso # (Auto) 0.08 Sodium 137 Potassium 4.3 Chloride 103 Carbon Dioxide 24 Anion Gap 14 BUN 46 H Creatinine 1.9 H Est GFR ( Amer) 42 Est GFR (Non-Af Amer) 35 POC Glucose (mg/dL) 208 H Random Glucose 129 H Calcium 9.0 Total Bilirubin 0.4 AST 32 ALT 29 Alkaline Phosphatase 233 H Total Protein 6.2 Albumin 2.6 L Globulin 3.6 Albumin/Globulin Ratio 0.7 L 05/09/17 05/09/17 06:49 11:42 WBC RBC Hgb Hct MCV MCH MCHC RDW Plt Count MPV Gran % Lymph % (Auto) [place] % (Auto) Eos % (Auto) Baso % (Auto) Gran # Lymph # (Auto) [place] # (Auto) Eos # (Auto) Baso # (Auto) Sodium Potassium Chloride Carbon Dioxide Anion Gap BUN Creatinine Est GFR ( Amer) Est GFR (Non-Af Amer) POC Glucose (mg/dL) 122 H 253 H Random Glucose Calcium Total Bilirubin AST ALT Alkaline Phosphatase Total Protein Albumin Globulin Albumin/Globulin Ratio Assessment & Plan - Assessment and Plan (Free Text) Assessment: 76 year old male with history pancreatic cancer, billiary stent, billiary drain , left hip fx s/p ORIF who was admitted with lower extremity cellulitis, MRSA bacteremia, HCAP and deconditioining. The patient is alert, confused at times. Denies pain. I spoke with patients daughter Helga via phone. Explained that would should meet to discuss goals of care and options for discharge. Daughter understands fathers medical issues and prognosis. She requested information about hospice services. Meeting scheduled for tomorrow morning to discus hospice care upon discharge. Plan: Palliative support in establishing goals of care.
--- NOTE | 2017-05-09 19:00 | PN ---
DATE: 05/09/2017 SUBJECTIVE: This patient was evaluated earlier. The patient's daughter was at bedside. On examination, the patient has some loose bowel movements. PHYSICAL EXAMINATION: VITAL SIGNS: Temperature is 97.6, blood pressure is 123/77, pulse 77, respirations 20, O2 saturation 99%. HEENT: Atraumatic, anicteric. NECK: Supple. LUNGS: Bilateral air entry present. ABDOMEN: Soft. EXTREMITIES: No cyanosis. No clubbing. LABORATORY DATA: Hemoglobin 9.4, hematocrit 29.8, WBC 11.4, platelets 538. Chemistries: BUN 46, creatinine 1.9. AST 32, ALT 29, alkaline phosphatase 233. IMPRESSION: This is a 76-year-old patient with locally-advanced pancreatic cancer, status post failed endoscopic retrograde cholangiopancreatography, tumor infiltrated in the duodenum. The patient is status post internal and external biliary drain placement. Methicillin-resistant Staphylococcus aureus sepsis, on antibiotics. I will discuss with and also with Dr. Chicho Trujillo and oncologist regarding placementof the internal stent. we will follow up of the LFTs. and check the stool for Clostridium difficile. Thank you very much for allowing us to participate in the care of the patient. Yomaira Bradley MD MTDD
--- NOTE | 2017-05-09 21:37 | CP.PCM.PN ---
Subjective - Date & Time of Evaluation Date of Evaluation: 05/09/17 Time of Evaluation: 10:30 - Subjective Subjective: Not in distress, no fevers, no diarrhea, no abdominal pain. Objective - Vital Signs/Intake and Output Vital Signs (last 24 hours): Temp Pulse Resp BP Pulse Ox 97.7 F 77 18 122/84 98 05/09/17 17:45 05/09/17 17:45 05/09/17 17:45 05/09/17 17:45 05/09/17 17:45 Intake and Output: 05/09/17 05/10/17 18:59 06:59 Output Total 2300 Balance -2300 - Medications Medications: Current Medications Acetaminophen (Tylenol 325mg Tab) 650 mg PO Q6H PRN; Protocol PRN Reason: Fever >100.4 F Acetaminophen (Tylenol 325mg Tab) 325 mg PO DAILY [facility] PRN Reason: Protocol Last Admin: 05/09/17 09:02 Dose: 325 mg Amylase (Pancrease 60321 U-5000 U-87252 U) 5,000 unit PO ACTID [facility] PRN Reason: Protocol Last Admin: 05/09/17 16:03 Dose: 5,000 unit Insulin Human Regular (Humulin R Low) 0 units SC ACHS [facility] PRN Reason: Protocol Last Admin: 05/09/17 17:33 Dose: 1 units Magnesium Hydroxide (Milk Of Magnesia) 30 ml PO DAILY PRN PRN Reason: Constipation Last Admin: 05/08/17 12:32 Dose: 30 ml Mupirocin (Bactroban Ointment) 1 gm TOP DAILY [facility] PRN Reason: Protocol Last Admin: 05/09/17 09:02 Dose: 1 applic Ondansetron HCl (Zofran Tab) 4 mg PO Q8H PRN PRN Reason: Nausea/Vomiting Last Admin: 05/09/17 14:40 Dose: 4 mg Oxycodone/Acetaminophen (Percocet 5/325 Mg Tab) 1 tab PO Q4H PRN PRN Reason: Pain, moderate (4-7) Stop: 05/10/17 10:08 Last Admin: 05/09/17 16:03 Dose: 1 tab Pantoprazole Sodium (Protonix Ec Tab) 40 mg PO 0600 [facility] PRN Reason: Protocol Last Admin: 05/09/17 05:24 Dose: 40 mg - Labs Labs: 05/09/17 06:30 05/09/17 06:30 - Constitutional Appears: Non-toxic - Head Exam Head Exam: NORMAL INSPECTION - ENT Exam ENT Exam: Mucous Membranes Moist - Neck Exam Neck Exam: absent: Meningismus - Respiratory Exam Respiratory Exam: Decreased Breath Sounds - Cardiovascular Exam Cardiovascular Exam: +S1, +S2 - GI/Abdominal Exam GI & Abdominal Exam: Soft. absent: Tenderness Assessment and Plan - Assessment and Plan (Free Text) Plan: Assessment severe sepsis due to MRSA bacteremia R/O biliary stent infection; S/P treatment for bilateral HCAP diarrhea R/O C. diff. history of severe sepsis due to methicillin-resistant Staph aureus bacteremia, R /O due to bilateral lower extremity cellulitis R/O biliary tree infection chronic CHF in this patient with CAD pancreatic head mass, S/P EUS and percutaneous drain placement S/P biliary stent placement DM recent left hip fracture S/P surgery Plan on Daptomycin (day 21 of 21), and will d/c after today overall prognosis is poor
[2017-05-10] MEDS: Oxycodone/Acetaminophen 5/325 mg Tab PO PRN ×5 (00:51→23:16)
[2017-05-10] MEDS: Pantoprazole 40 mg EC Tab PO SCH (05:57)
[2017-05-10] MEDS: Insulin Reg-LOW-Coverage SC SCH ×4 (07:05→22:07)
[2017-05-10] MEDS: Amylase/Lipase/Protease 5,000 Units ECC PO SCH ×3 (08:06→17:30)
--- NOTE | 2017-05-10 11:13 | CP.PCM.PN ---
Subjective - Date & Time of Evaluation Date of Evaluation: 05/10/17 Time of Evaluation: 10:00 - Subjective Subjective: Alert, complains of fatigue, low back pain Objective - Vital Signs/Intake and Output Vital Signs (last 24 hours): Temp Pulse Resp BP Pulse Ox 97.7 F 77 18 122/84 98 05/09/17 17:45 05/09/17 17:45 05/09/17 17:45 05/09/17 17:45 05/09/17 17:45 Intake and Output: 05/10/17 05/10/17 06:59 18:59 Intake Total 400 Output Total 1700 Balance -1300 - Medications Medications: Current Medications Acetaminophen (Tylenol 325mg Tab) 650 mg PO Q6H PRN; Protocol PRN Reason: Fever >100.4 F Acetaminophen (Tylenol 325mg Tab) 325 mg PO DAILY [facility] PRN Reason: Protocol Last Admin: 05/10/17 10:25 Dose: 325 mg Amylase (Pancrease 27522 U-5000 [id number] U) 5,000 unit PO ACTID [facility] PRN Reason: Protocol Last Admin: 05/10/17 08:06 Dose: 5,000 unit Insulin Human Regular (Humulin R Low) 0 units SC ACHS [facility] PRN Reason: Protocol Last Admin: 05/10/17 07:05 Dose: 2 units Magnesium Hydroxide (Milk Of Magnesia) 30 ml PO DAILY PRN PRN Reason: Constipation Last Admin: 05/08/17 12:32 Dose: 30 ml Mupirocin (Bactroban Ointment) 1 gm TOP DAILY [facility] PRN Reason: Protocol Last Admin: 05/09/17 09:02 Dose: 1 applic Ondansetron HCl (Zofran Tab) 4 mg PO Q8H PRN PRN Reason: Nausea/Vomiting Last Admin: 05/09/17 14:40 Dose: 4 mg Pantoprazole Sodium (Protonix Ec Tab) 40 mg PO 0600 [facility] PRN Reason: Protocol Last Admin: 05/10/17 05:57 Dose: 40 mg - Labs Labs: 05/09/17 06:30 05/09/17 06:30 - Constitutional Appears: Cachectic, Chronically Ill - Head Exam Head Exam: NORMAL INSPECTION - Eye Exam Eye Exam: Normal appearance, PERRL - ENT Exam ENT Exam: Mucous Membranes Moist, Normal Oropharynx - Neck Exam Neck Exam: Normal Inspection - Respiratory Exam Respiratory Exam: Decreased Breath Sounds, NORMAL BREATHING PATTERN - Cardiovascular Exam Cardiovascular Exam: REGULAR RHYTHM, +S1, +S2 - GI/Abdominal Exam GI & Abdominal Exam: Soft, Normal Bowel Sounds Additional comments: billiary tube draining dark green fluid - Exam Additional comments: fisher - Back Exam Back Exam: NORMAL INSPECTION - Neurological Exam Neurological Exam: Alert - Skin Skin Exam: Dry, Pallor Assessment and Plan - Assessment and Plan (Free Text) Assessment: 76 year old male with history of pancreatic cancer, lower extremity cellulitis, MRSA bacteremia and HCAP who is seen in [facility] where he is completing antibiotics and deconditioning therapy. The patient is frustrated because he is limited by fisher and abdominal drain apparatus. He has chronic low back pain. I met with patients daughter,option for hospice vs visiting nurse discussed at length. Questions answered. Daughter is open to either services. States she wants to discuss with primary physician before making decision as to discharge plan.Psychosocial support provided. Time spent with daughter in goals of care and end of life discussions, 45 minutes Plan: Palliative support in establishing goals of care and advance care planning
--- NOTE | 2017-05-11 04:06 | PN ---
DATE: 05/10/2017 SUBJECTIVE: The patient seen early this morning in room 319. No fevers and chills. PHYSICAL EXAMINATION: VITAL SIGNS: Temperature is 98, blood pressure is 119/70, respiratory rate of 16. HEENT: Unremarkable. NECK: Supple. LUNGS: Have decreased breath sounds. HEART: Normal S1 and S2. ABDOMEN: Soft. LABORATORY DATA: Reveals the patient's white count to be 11,400, hemoglobin 9. Chemistries were noted and the patient's creatinine is 1.8, and microbiology is noted. ASSESSMENT AND PLAN: This is a 76-year-old male, who appears much older than his stated age, who was seen earlier this morning in Transitional Care, room 319. He was initially admitted to acute care with severe sepsis with methicillin-resistant Staphylococcus aureus bacteremia probably secondary to biliary stent infection and also was treated for healthcare-associated pneumonia, and today is day # . The patient has completed daptomycin for 21 days, and currently the patient is off of antibiotics ;however, he is at risk for developing nosocomial infections. Dr. Rehan Jeff's office note is reviewed. Jose David Gracia MD
[2017-05-11] MEDS: Oxycodone/Acetaminophen 5/325 mg Tab PO PRN ×4 (04:23→20:26)
[2017-05-11] MEDS: Pantoprazole 40 mg EC Tab PO SCH (05:19)
[2017-05-11] MEDS: Insulin Reg-LOW-Coverage SC SCH ×4 (06:36→21:56)
[2017-05-11] MEDS: Amylase/Lipase/Protease 5,000 Units ECC PO SCH ×3 (08:23→17:30)
--- NOTE | 2017-05-11 12:39 | CP.PCM.PN ---
Subjective - Date & Time of Evaluation Date of Evaluation: 05/11/17 Time of Evaluation: 10:00 - Subjective Subjective: Seen and examined at the bedside earlier today, chart reviewed. Daughter at bedside. Patient having small amounts of p.m., denies nausea, vomiting, or abdominal pain. Complains of back pain. In no acute distress. PTC drain in place and draining dark bilious fluid. Offers no new complaints. Objective - Vital Signs/Intake and Output Vital Signs (last 24 hours): Temp Pulse Resp BP Pulse Ox 98.1 F 76 20 119/78 97 05/10/17 16:35 05/10/17 16:35 05/10/17 16:35 05/10/17 16:35 05/10/17 16:35 Intake and Output: 05/11/17 05/11/17 06:59 18:59 Output Total 800 Balance -800 - Medications Medications: Current Medications Acetaminophen (Tylenol 325mg Tab) 650 mg PO Q6H PRN; Protocol PRN Reason: Fever >100.4 F Acetaminophen (Tylenol 325mg Tab) 325 mg PO DAILY [facility] PRN Reason: Protocol Last Admin: 05/11/17 11:06 Dose: 325 mg Amylase (Pancrease 87222 U-5000 U-[id number] U) 5,000 unit PO ACTID [facility] PRN Reason: Protocol Last Admin: 05/11/17 08:23 Dose: 5,000 unit Insulin Human Regular (Humulin R Low) 0 units SC ACHS [facility] PRN Reason: Protocol Last Admin: 05/11/17 06:36 Dose: Not Given Magnesium Hydroxide (Milk Of Magnesia) 30 ml PO DAILY PRN PRN Reason: Constipation Last Admin: 05/08/17 12:32 Dose: 30 ml Mupirocin (Bactroban Ointment) 1 gm TOP DAILY [facility] PRN Reason: Protocol Last Admin: 05/11/17 11:00 Dose: 1 applic Ondansetron HCl (Zofran Tab) 4 mg PO Q8H PRN PRN Reason: Nausea/Vomiting Last Admin: 05/09/17 14:40 Dose: 4 mg Oxycodone/Acetaminophen (Percocet 5/325 Mg Tab) 2 tab PO Q4H PRN PRN Reason: Pain, moderate (4-7) Stop: 05/13/17 13:55 Pantoprazole Sodium (Protonix Ec Tab) 40 mg PO 0600 [facility] PRN Reason: Protocol Last Admin: 05/11/17 05:19 Dose: 40 mg - Labs Labs: 05/09/17 06:30 05/09/17 06:30 - Constitutional Appears: No Acute Distress - Head Exam Head Exam: NORMOCEPHALIC - Eye Exam Eye Exam: Normal appearance. absent: Scleral icterus - ENT Exam ENT Exam: Mucous Membranes Moist - Neck Exam Neck Exam: Normal Inspection - Respiratory Exam Respiratory Exam: NORMAL BREATHING PATTERN. absent: Respiratory Distress - Cardiovascular Exam Cardiovascular Exam: +S1, +S2 - GI/Abdominal Exam GI & Abdominal Exam: Soft, Normal Bowel Sounds. absent: Guarding, Tenderness, Rebound Additional comments: positive PTC drain - Extremities Exam Extremities Exam: absent: Calf Tenderness, Pedal Edema - Neurological Exam Neurological Exam: Alert, Awake, Oriented x3 Assessment and Plan - Assessment and Plan (Free Text) Assessment: Assessment: Sepsis, bacteremia/MRSA Seizure Pancreatic cancer status post biliary stents, status post CT scan showing nonvisualization of the metallic stent, no on 04/25/ s/p PTC biliary drain Elevated LFT History of diabetes mellitus Plan: heart healthy soft diet on Pancreatic enzymes prior to meals pain mgt Monitor LFTs Continue GI prophylaxis MOM for constipation prn SCD while in bed as per oncology Seen and discussed with Dr. Bradley.
--- NOTE | 2017-05-11 13:49 | PN ---
DATE: 05/11/2017 SUBJECTIVE: The patient is seen in bed, in no acute distress, nontoxic. The patient was seen earlier this morning in room 319. PHYSICAL EXAMINATION: VITAL SIGNS: Temperature is 98, blood pressure is 119/70, respiratory rate of 20. HEENT: Examination of HEENT is unremarkable. NECK: Supple. LUNGS: Have decreased breath sounds. HEART: Normal S1 and S2. ABDOMEN: Soft, nontender. LABORATORY DATA: Laboratory examination reveals a white count of 11,400, hemoglobin of 9, platelets of 538. Chemistries reveals a BUN of 46, creatinine is 1.9. ASSESSMENT AND PLAN: This is a 76-year-old male who was seen early this morning with appears much older than his stated age. The patient was initially admitted to acute care with severe sepsis and methicillin-resistant Staphylococcus aureus bacteremia secondary to biliary stent infection and the patient was treated with 21 days of daptomycin. Currently, review of the medications revealed the patient to be off of daptomycin and off of antibiotics. Overall prognosis is quite poor. Jose David Gracia MD
--- NOTE | 2017-05-11 15:37 | CP.PCM.PN ---
Subjective - Date & Time of Evaluation Date of Evaluation: 05/11/17 Time of Evaluation: 13:00 - Subjective Subjective: Alert, confused, anxious at times Objective - Vital Signs/Intake and Output Vital Signs (last 24 hours): Temp Pulse Resp BP Pulse Ox 98.1 F 76 20 119/78 97 05/10/17 16:35 05/10/17 16:35 05/10/17 16:35 05/10/17 16:35 05/10/17 16:35 Intake and Output: 05/11/17 05/11/17 06:59 18:59 Output Total 800 Balance -800 - Medications Medications: Current Medications Acetaminophen (Tylenol 325mg Tab) 650 mg PO Q6H PRN; Protocol PRN Reason: Fever >100.4 F Acetaminophen (Tylenol 325mg Tab) 325 mg PO DAILY [facility] PRN Reason: Protocol Last Admin: 05/11/17 11:06 Dose: 325 mg Amylase (Pancrease 82329 U-5000 U-[id number] U) 5,000 unit PO ACTID [facility] PRN Reason: Protocol Last Admin: 05/11/17 12:30 Dose: 5,000 unit Insulin Human Regular (Humulin R Low) 0 units SC ACHS [facility] PRN Reason: Protocol Last Admin: 05/11/17 06:36 Dose: Not Given Magnesium Hydroxide (Milk Of Magnesia) 30 ml PO DAILY PRN PRN Reason: Constipation Last Admin: 05/08/17 12:32 Dose: 30 ml Mupirocin (Bactroban Ointment) 1 gm TOP DAILY [facility] PRN Reason: Protocol Last Admin: 05/11/17 11:00 Dose: 1 applic Ondansetron HCl (Zofran Tab) 4 mg PO Q8H PRN PRN Reason: Nausea/Vomiting Last Admin: 05/09/17 14:40 Dose: 4 mg Oxycodone/Acetaminophen (Percocet 5/325 Mg Tab) 2 tab PO Q4H PRN PRN Reason: Pain, moderate (4-7) Stop: 05/13/17 13:55 Last Admin: 05/11/17 14:53 Dose: 2 tab Pantoprazole Sodium (Protonix Ec Tab) 40 mg PO 0600 [facility] PRN Reason: Protocol Last Admin: 05/11/17 05:19 Dose: 40 mg - Labs Labs: 05/09/17 06:30 05/09/17 06:30 - Constitutional Appears: Cachectic, Chronically Ill - Head Exam Head Exam: NORMAL INSPECTION - Eye Exam Eye Exam: Normal appearance, PERRL - ENT Exam ENT Exam: Mucous Membranes Moist, Normal Oropharynx - Neck Exam Neck Exam: Normal Inspection - Respiratory Exam Respiratory Exam: Decreased Breath Sounds, NORMAL BREATHING PATTERN - Cardiovascular Exam Cardiovascular Exam: REGULAR RHYTHM, +S1, +S2 - GI/Abdominal Exam GI & Abdominal Exam: Tenderness, Normal Bowel Sounds Additional comments: percutaneous billiary tube patent - Extremities Exam Extremities Exam: Pedal Edema - Psychiatric Exam Psychiatric exam: Anxious Assessment and Plan - Assessment and Plan (Free Text) Assessment: 76 year old male with history of pancreatic cancer, billiary obstruction s/p stent, percutaneous billiary drain,sepsis, cellulitis and deconditioning who is admitted for completion of antibiotics and physical therapy. Patients daughter has decided to proceed with hospice care upon discharge. Reviewed hospice services. Daughter scheduled to meet with [facility] liaison officer. Anticipated discharge home tomorrow. Psychosocial support /end of life counseling provided, 30 minutes Plan: Home with hospice services
[2017-05-11 16:39] VITALS: BP 124/88; PULSE 86; RESP 18; TEMP 97.9; O2SAT 98
[2017-05-12] MEDS: Oxycodone/Acetaminophen 5/325 mg Tab PO PRN ×2 (00:40→08:44)
[2017-05-12] MEDS: Pantoprazole 40 mg EC Tab PO SCH (05:18)
[2017-05-12] MEDS: Insulin Reg-LOW-Coverage SC SCH ×2 (06:33→12:08)
[2017-05-12] MEDS: Amylase/Lipase/Protease 5,000 Units ECC PO SCH ×2 (10:12→14:08)
--- NOTE | 2017-05-12 10:41 | CP.PCM.PN ---
Subjective - Date & Time of Evaluation Date of Evaluation: 05/12/17 Time of Evaluation: 09:10 - Subjective Subjective: S%E at bedside, chart reviewed, having BM yesterday no overt GI bleeding. No N/ V or abdominal pain. No new GI complaints. Objective - Vital Signs/Intake and Output Vital Signs (last 24 hours): Temp Pulse Resp BP Pulse Ox 97.9 F 86 18 124/88 98 05/11/17 16:00 05/11/17 16:00 05/11/17 16:00 05/11/17 16:00 05/11/17 16:00 Intake and Output: 05/12/17 05/12/17 06:59 18:59 Output Total 3050 Balance -3050 - Medications Medications: Current Medications Acetaminophen (Tylenol 325mg Tab) 650 mg PO Q6H PRN; Protocol PRN Reason: Fever >100.4 F Acetaminophen (Tylenol 325mg Tab) 325 mg PO DAILY [facility] PRN Reason: Protocol Last Admin: 05/12/17 10:15 Dose: 325 mg Amylase (Pancrease 59721 U-5000 U-[id number] U) 5,000 unit PO ACTID [facility] PRN Reason: Protocol Last Admin: 05/12/17 10:12 Dose: 5,000 unit Insulin Human Regular (Humulin R Low) 0 units SC ACHS [facility] PRN Reason: Protocol Last Admin: 05/12/17 06:33 Dose: Not Given Magnesium Hydroxide (Milk Of Magnesia) 30 ml PO DAILY PRN PRN Reason: Constipation Last Admin: 05/08/17 12:32 Dose: 30 ml Mupirocin (Bactroban Ointment) 1 gm TOP DAILY [facility] PRN Reason: Protocol Last Admin: 05/12/17 10:11 Dose: 1 applic Ondansetron HCl (Zofran Tab) 4 mg PO Q8H PRN PRN Reason: Nausea/Vomiting Last Admin: 05/09/17 14:40 Dose: 4 mg Oxycodone/Acetaminophen (Percocet 5/325 Mg Tab) 2 tab PO Q4H PRN PRN Reason: Pain, moderate (4-7) Stop: 05/13/17 13:55 Last Admin: 05/12/17 08:44 Dose: 2 tab Pantoprazole Sodium (Protonix Ec Tab) 40 mg PO 0600 [facility] PRN Reason: Protocol Last Admin: 05/12/17 05:18 Dose: 40 mg - Labs Labs: 05/09/17 06:30 05/09/17 06:30 - Constitutional Appears: No Acute Distress - Head Exam Head Exam: NORMOCEPHALIC - Eye Exam Eye Exam: Normal appearance - ENT Exam ENT Exam: Mucous Membranes Moist - Neck Exam Neck Exam: Normal Inspection - Respiratory Exam Respiratory Exam: NORMAL BREATHING PATTERN. absent: Respiratory Distress - Cardiovascular Exam Cardiovascular Exam: +S1, +S2 - GI/Abdominal Exam GI & Abdominal Exam: Soft, Normal Bowel Sounds. absent: Guarding, Tenderness, Rebound Additional comments: PTC drain present, with dark bilious fluid - Extremities Exam Extremities Exam: Normal Capillary Refill. absent: Calf Tenderness, Pedal Edema - Neurological Exam Neurological Exam: Alert, Awake, Oriented x3 - Skin Skin Exam: Dry, Warm Assessment and Plan - Assessment and Plan (Free Text) Assessment: Assessment: Sepsis, bacteremia/MRSA Seizure Pancreatic cancer status post biliary stents, status post CT scan showing nonvisualization of the metallic stent, no on 04/25/ s/p PTC biliary drain Elevated LFT History of diabetes mellitus Plan: heart healthy soft diet on Pancreatic enzymes prior to meals pain mgt Monitor LFTs Continue GI prophylaxis MOM for constipation prn no plans for interanlization of stent at this time, patient FU w/ oncology. plan for DC home today. Seen and discussed with Dr. Bradley.
--- NOTE | 2017-05-13 03:24 | PN ---
DATE: 05/12/2017 SUBJECTIVE: The patient was seen earlier this morning in room 319, chronically ill and weak. PHYSICAL EXAMINATION: VITAL SIGNS: Temperature is 98, blood pressure is 120/80, respiratory rate of 16. HEENT: Unremarkable. NECK: Supple. LUNGS: Have decreased breath sounds. HEART: Normal S1, S2. ABDOMEN: Soft. LABORATORY DATA: Reveals a white count of 11,400, hemoglobin of 9, platelets of 538. Chemistries reveal a BUN of 46, creatinine of 1.9. ASSESSMENT AND PLAN: This is a 76-year-old male, seen earlier this morning in transitional care unit, room 319, chronically ill and weak, who was admitted to acute care with severe sepsis with methicillin-resistant Staphylococcus aureus bacteremia secondary to questionable biliary stent placement and had completed daptomycin therapy for 21 days. Overall prognosis is poor. The patient is off antibiotics at this time. Jose David Gracia MD
== END 2017-05-12 15:20 | disposition hospice, home (50) | DRG 871 ==
LOC: TRCU 20:37
PROVIDERS: ADMIT Internal Medicine; ATTEND Internal Medicine
PROC: F07Z9FZ Gait Training/Functional Ambulation Treatment using Assistive, Adaptive, Supportive or Protective Equipment (ICD-10-PCS; principal; 2017-05-05)
PROC: F08Z4FZ Home Management Treatment using Assistive, Adaptive, Supportive or Protective Equipment (ICD-10-PCS; 2017-05-05)
DX: A41.02 Sepsis due to Methicillin resistant Staphylococcus aureus (principal); J18.9 Pneumonia, unspecified organism; K83.0 Cholangitis; C25.9 Malignant neoplasm of pancreas, unspecified; I50.9 Heart failure, unspecified; E11.621 Type 2 diabetes mellitus with foot ulcer; L03.115 Cellulitis of right lower limb; L97.419 Non-pressure chronic ulcer of right heel and midfoot with unspecified severity; E86.0 Dehydration; L97.429 Non-pressure chronic ulcer of left heel and midfoot with unspecified severity; L03.116 Cellulitis of left lower limb; R56.9 Unspecified convulsions; I25.10 Atherosclerotic heart disease of native coronary artery without angina pectoris; R65.20 Severe sepsis without septic shock; Y95 Nosocomial condition; Z66 Do not resuscitate; K59.00 Constipation, unspecified; G89.29 Other chronic pain; M54.5 Low back pain; Z79.2 Long term (current) use of antibiotics